=== PATIENT | male | born 1950 | race Caucasian/White ===

== ENCOUNTER → 2017-12-06 08:40 | Outpatient (CLI) | payer MEDICARE, OTHER, SELFPAY ==
--- NOTE | 2017-12-06 08:57 | MRI_ITS ---
STUDY: MRI BRAIN WITHOUT CONTRAST REASON FOR EXAM: Male, 67 years old. Trauma head trauma TECHNIQUE: Standardized multiplanar fat and water weighted pulse sequences were obtained. COMPARISON: None. FINDINGS: The pituitary and pineal regions are normal. The brainstem is normal. The 7th and 8th nerve complexes are normal. Both cerebellopontine angles are clear. The cerebellar vermis and lobes are normal. The ventricles, basal cisterns and cortical sulci are normal with no midline shift and no intra or extra-axial hemorrhage or tumor mass. There is no acute infarction. The calvarium is intact. There are no skull swelling. The vessels at the base of the brain are normal. The orbits and mastoid air cells are normal. There are mild inflammatory changes involving the maxillary sinuses MRI/Brain without Contrast IMPRESSION: No acute findings in the brain. Mild inflammatory changes involving the maxillary sinuses Electronically Signed: Russell Johnson, at 22:48 EST Tel , Service support ,
== END ==
PROVIDERS: Family Provider Family Medicine; PCP Family Medicine; Visit Provider Psychiatry & Neurology Neurology
DX: S02.2XXA Fracture of nasal bones, initial encounter for closed fracture (principal); X58.XXXA Exposure to other specified factors, initial encounter
CPT/HCPCS: 70551

== ENCOUNTER → 2018-03-12 10:45 | Outpatient (CLI) | payer MEDICARE, OTHER, SELFPAY ==
[2018-03-12 12:09] LABS: Hemoglobin A1c 5.7 % (4.2-6.3)
[2018-03-12 12:15] LABS: Rheumatoid Factor < 10.0 IU/mL (<15); Thyroid Stim Hormone (TSH) 1.75 uIU/mL (0.358-3.74)
[2018-03-13 10:29] LABS: Vitamin B12 381 pg/mL (211-911)
[2018-03-13 12:07] LABS: SJOGREN'S Anti-SS-A test < 0.2 AI (0.0-0.9); SJOGREN'S Anti-SS-B test < 0.2 AI (0.0-0.9)
[2018-03-13 13:22] LABS: ANTINUCLEAR ANTIBODIES DIRECT Negative (Negative)
[2018-03-16 16:09] LABS: Albumin 3.6 g/dL (2.9-4.4); Albumin, Ur 68.1 % (.); Alpha-1-Globulin, Ur 3.2 % (.); Alpha-1-Globulins 0.3 g/dL (0.0-0.4); Alpha-2-Globulins 0.8 g/dL (0.4-1.0); Alpha-2-Globulins, Ur 8.4 % (.); Cytoplasmic Ab (C-ANCA) <1:20 titer (Neg:<1:20); Gamma Globulin 0.9 g/dL (0.4-1.8); Gamma Globulin, Ur 7.3 % (.); Immunoglobulin A 146 mg/dL (61-437); Immunoglobulin G 709 mg/dL (700-1600); Immunoglobulin M 107 mg/dL (20-172); M-Spike, Ur % Not Observed % (Not Observed); PROEL- TOTAL PROTEIN 6.5 g/dL (6.0-8.5); Total Protein, Ur 12.1 mg/dL (Not Estab.)
[2018-03-17 09:36] LABS: Perinuclear Ab (P-ANCA) <1:20 titer (Neg:<1:20)
== END ==
PROVIDERS: Family Provider Family Medicine; PCP Family Medicine; Visit Provider Psychiatry & Neurology Neurology
DX: G62.9 Polyneuropathy, unspecified (principal); Z79.899 Other long term (current) drug therapy
CPT/HCPCS: 36415; 82607; 82784; 83036; 84165; 84166; 84443; 86038; 86235; 86256; 86334; 86335; 86431

== ENCOUNTER → 2018-03-17 08:01 | Outpatient (CLI) | payer MEDICARE, OTHER, SELFPAY ==
--- NOTE | 2018-03-17 10:13 | NEURO_ITS ---
NCS and/or EMG Patient Report Ordering Doctor: Denise Dupree DATE OF SERVICE: 03/17/18 This is a bilateral lower extremity nerve conduction study in the left lower extremity EMG performed on this 67-year-old male who over the past 12 months has experienced pain in his knees as well as burning pain in his calves on both sides. He has no back pain. He has had numbness and tingling in both feet. On examination he does have severe hammertoe deformities bilaterally. Bilateral lower extremity sensory and motor nerve conduction studies are performed. The sural sensory responses are intact. The common peroneal motor response on the right distally is not obtainable, more proximally it appears normal. On the left side distally the common peroneal amplitude is low with very slow conduction velocities, this is also more normal proximally. The tibial motor responses bilaterally demonstrate slowed velocities and prolonged latencies. The tibial F waves are prolonged as his left common peroneal F- wave. H reflex latencies from the tibial nerves are reduced bilaterally. Left lower extremity needle electrode mammography is performed. Muscles evaluated included the extensor digitorum brevis, abductor hallucis, medial gastrocnemius, anterior tibialis, vastus lateralis and vastus medialis muscles. Distal muscles demonstrated large motor units however pathologic spontaneous activity and insertional activity was absent. More proximally the muscle activity was normal. 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
== END ==
PROVIDERS: Family Provider Family Medicine; PCP Family Medicine; Visit Provider Psychiatry & Neurology Neurology
DX: G62.9 Polyneuropathy, unspecified (principal); R20.0 Anesthesia of skin; R20.2 Paresthesia of skin
CPT/HCPCS: 95886; 95911

== ENCOUNTER → 2018-03-19 17:46 | Outpatient (CLI) | payer MEDICARE, OTHER, SELFPAY ==
--- NOTE | 2018-03-19 17:51 | MRI_ITS ---
STUDY: MRI LUMBAR SPINE WITHOUT CONTRAST REASON FOR EXAM: Male, 67 years old. Pain radiating into both legs TECHNIQUE: Standardized fat and water weighted pulse sequences were obtained in the sagittal and axial planes. COMPARISON: None FINDINGS: T12-L1: Normal endplates. Normal disc height, hydration and morphology. Normal bilateral facet joints. Normal central canal and bilateral lateral recesses. Normal bilateral intervertebral neural foramina. Normal lumbar lordosis. There is no substantial scoliosis. Normal conus medullaris that terminates at the L1-2 level. L1-2: Normal endplates. Normal disc height, hydration and morphology. Normal bilateral facet joints. Normal central canal and bilateral lateral recesses. Normal bilateral intervertebral neural foramina. L2-3: Disc desiccation. Bulging annulus and bilateral facet hypertrophy without compressive sequelae. L3-4: Disc desiccation and L4 Schmorl's node. Bulging annulus and bilateral facet hypertrophy with severe right lateral recess stenosis and mass effect on the transiting right L4 nerve root. Mild bilateral foraminal stenoses. L4-5: Disc desiccation. Bulging annulus and bilateral facet hypertrophy with mild central canal stenosis and bilateral foraminal stenoses. L5-S1: Disc osteophyte complex and left facet hypertrophy with mild central canal stenosis and bilateral foraminal stenoses. Normal visualized sacral ala. Normal visualized paraspinous soft tissue structures. Bilateral renal cysts. MRI/Spine Lumbar (Routine) IMPRESSION: Multilevel degenerative disease as described. At L3-4, there is severe right lateral recess stenosis, with mass effect on the transiting right L4 nerve root. Electronically Signed: Andrew Kimbrough MD at 4:08 EDT Tel , Service support ,
== END ==
PROVIDERS: Family Provider Family Medicine; PCP Family Medicine; Visit Provider Psychiatry & Neurology Neurology
DX: M48.061 Spinal stenosis, lumbar region without neurogenic claudication (principal)
CPT/HCPCS: 72148

== ENCOUNTER → 2018-05-07 10:47 | Outpatient (CLI) | payer MEDICARE, OTHER, SELFPAY ==
[2018-05-07 12:50] LABS: Absolute Lymphocyte Count 2.29 X10^3/ul (0.83-4.51); Absolute Neutrophil Count 5.4 X10^3/uL (2.0-7.7); Basophil# 0.05 X10^3/uL; Basophil% 0.6 % (0-1); Eosinophil# 0.18 X10^3/uL; Eosinophils% 2.1 % (0-5); Hematocrit 49.8 % (40-54); Hemoglobin 16.7 g/dl (13.0-16.5); Lymphocyte # 2.29 X10^3/ul (4.0); Lymphocyte % 26.1 % (19-41); Mean Corp Hgb Conc 33.5 g/gl (32-36); Mean Corpuscular Hgb 31.7 pg (27.0-32.0); Mean Corpuscular Volume 94.7 fL (80-94); Mean Platelet Vol. 9.4 fl (6.2-12.0); Monocyte% 9.1 % (0-10); Neutrophil # 5.41 X10^3/uL (2.7-7.7); Neutrophil % 61.8 % (47-70); Platelet Count 297 K/mm3 (150-450); RBC Distribution Width CV 14.1 % (11.6-14.6); Red Blood Count 5.26 M/mm3 (4.6-6.2); White Blood Count 8.8 K/mm3 (4.4-11.0)
[2018-05-07 12:52] LABS: POSITIVE COUNT NO; POSITIVE DIFFERENTIAL NO; POSITIVE MORPHOLOGY NO
[2018-05-07 13:01] LABS: Anion Gap 7 (5-15); BUN 19 mg/dL (7-18); Chloride 106 mmol/L (98-107); Cholesterol 182 mg/dL (200); Creatinine, Serum 1.72 mg/dL (0.70-1.30); EST Glomerular Filtration Rate 42 mL/min (>60); Est Glom Filt Rate - Afr Amer 51 mL/min (>60); Glucose 103 mg/dL (74-106); High Density Lipoprotein 41 mg/dL; Potassium 4.2 mmol/L (3.5-5.1); Sodium Level 140 mmol/L (136-145); Triglycerides 154 mg/dL; Very Low Density Lipoprotein 31 mg/dL (5-40)
== END ==
PROVIDERS: Family Provider Family Medicine; PCP Family Medicine; Visit Provider Family Medicine
DX: Z01.818 Encounter for other preprocedural examination (principal); I10 Essential (primary) hypertension
CPT/HCPCS: 36415; 80048; 80061; 85025

== ENCOUNTER → 2018-06-15 14:40 | Outpatient (CLI) | payer MEDICARE, OTHER, SELFPAY ==
[2018-06-15 15:18] LABS: Absolute Lymphocyte Count 2.61 X10^3/ul (0.83-4.51); Absolute Neutrophil Count 4.9 X10^3/uL (2.0-7.7); Basophil# 0.06 X10^3/uL; Basophil% 0.7 % (0-1); Eosinophils% 2.3 % (0-5); Hematocrit 49.7 % (40-54); Hemoglobin 16.4 g/dl (13.0-16.5); Lymphocyte # 2.61 X10^3/ul (4.0); Lymphocyte % 29.6 % (19-41); Mean Corpuscular Hgb 31.2 pg (27.0-32.0); Mean Corpuscular Volume 94.7 fL (80-94); Mean Platelet Vol. 9.3 fl (6.2-12.0); Monocyte# 1.01 X10^3/uL; Monocyte% 11.5 % (0-10); Neutrophil % 55.6 % (47-70); POSITIVE COUNT NO; POSITIVE DIFFERENTIAL NO; POSITIVE MORPHOLOGY NO; Platelet Count 297 K/mm3 (150-450); Red Blood Count 5.25 M/mm3 (4.6-6.2); White Blood Count 8.8 K/mm3 (4.4-11.0)
[2018-06-15 15:49] LABS: AST(SGOT) 16 U/L (15-37); Alanine Aminotransfer ALT/SGPT 32 U/L (16-61); Albumin, Serum 3.6 g/dL (3.2-5.0); Alkaline Phosphatase 99 U/L (45-117); Anion Gap 5 (5-15); BUN 26 mg/dL (7-18); BUN/Creat Ratio 16.6 RATIO (10-20); Calcium,Total 9.2 mg/dL (8.5-10.1); Chloride 107 mmol/L (98-107); Creatinine, Serum 1.57 mg/dL (0.70-1.30); EST Glomerular Filtration Rate 47 mL/min (>60); Est Glom Filt Rate - Afr Amer 57 mL/min (>60); Globulin 3.6 g/dL (2.2-4.2); Glucose 61 mg/dL (74-106); Potassium 4.6 mmol/L (3.5-5.1); Protein, Total 7.2 g/dL (6.4-8.2); Sodium Level 142 mmol/L (136-145); Thyroid Stim Hormone (TSH) 2.54 uIU/mL (0.358-3.74)
== END ==
PROVIDERS: Family Provider Family Medicine; PCP Family Medicine; Visit Provider Family Medicine
DX: R10.9 Unspecified abdominal pain (principal); R53.83 Other fatigue
CPT/HCPCS: 36415; 74019; 80053; 84443; 85025

== ENCOUNTER → 2018-06-23 07:39 | Outpatient (CLI) | payer MEDICARE, OTHER, SELFPAY ==
--- NOTE | 2018-06-24 08:40 | LEAS ---
Arterial Study - Arterial Study Arterial Study: Date of scan 06/23/[address] Olson History: Patient with claudication symptoms Interpretation: Right lower extremity pulsatile flow decreased waveform at the ankle out through the digits duplex shows biphasic flow both vessels at the ankle with an SHASHANK 0.7 of the PT 0.6 for the DP. Left lower extremity again with pulsatile flow noted at the ankle out through the digits appears to be slightly decreased duplex shows biphasic flow of the PT and more of a monophasic flow the DP. SHASHANK 0.65 of the PT 0.5 to the DP. Impression: 1. Right lower extremity moderate arterial occlusive disease with an SHASHANK 0.7. 2. Left lower extremity moderate arterial occlusive disease with an SHASHANK 0.65.
== END ==
PROVIDERS: Family Provider Family Medicine; PCP Family Medicine; Visit Provider Surgery Vascular Surgery
DX: I70.213 Atherosclerosis of native arteries of extremities with intermittent claudication, bilateral legs (principal); I65.23 Occlusion and stenosis of bilateral carotid arteries; I77.1 Stricture of artery
CPT/HCPCS: 93880; 93922; 93925; 93978

== ENCOUNTER → 2018-08-03 16:45 | Outpatient (CLI) | payer MEDICARE, OTHER, SELFPAY ==
--- NOTE | 2018-08-03 16:50 | CT_ITS ---
STUDY: LOW DOSE CT LUNG CANCER SCREENING REASON FOR EXAM: Male, 67 years old. 53 pack-year history. Pain in the left lung. Bladder cancer. RADIATION DOSAGE (If Supplied By Facility): CTDIvol = ( 3.02 ) mGy, DLP = ( 106.46 ) mGycm TECHNIQUE: No contrast was administered. Low dose technique was utilized (average mAS-38 and kVp 120). 1.25 mm axial source images with a slice interval of 1.25-mm were reconstructed in lung windows. 2.5 mm axial source images with a slice interval of 2.5-mm were reconstructed in lung windows. 5.0 mm axial source images with a slice interval of 5.0-mm were reconstructed in soft tissue windows. Nodule measured using lung windows on PACS and/or independent workstation with automated measurement of minimum and maximum diameter. Nodule measurement reported as average diameter rounded to the nearest whole number. Growth is defined as an increase ins size of greater than 1.5 mm. COMPARISON: Chest, August 09, 2015. NODULES: Total lung nodules (excluding granulomas): 0 Emphysema: There are marked emphysematous changes throughout both lungs. There is bilateral apical pleural scarring. Endobronchial lesion: No Aorta: There is atherosclerotic changes of the thoracic aorta without aneurysm. Coronary arteries: There are coronary artery calcifications. Heart: The heart is normal in size. There is no pericardial abnormality. Pulmonary artery: Normal Mediastinal nodes: There are subcentimeter nonspecific mediastinal and right hilar lymph nodes. Other chest and abdominal findings: Minimal degenerative changes of the thoracic spine. CT/Low Dose CT Lung Screening IMPRESSION: Lung-RADS category 1 - Continue annual screening with LDCT in 12 months. IMPORTANT NOTES FOR USE: ACR Lung-RADS Version 1.0 Assessment Categories Release Date: February 28, 2014 Category: Coded 0-4 bases on nodule(s) with highest degree of suspicion. Negative screen is defined as categories 1 and 2; a positive screen is defined as categories 3 and 4. Category 3 and 4A nodules that are unchanged on interval CT should be coded as category 2, and individuals returned to screening in 12 months. Category 4X: Category 3 or 4 nodules with additional imaging findings that increase the suspicion of lung cancer, such as spiculation, GGN that doubles in size in 1 year, enlarged lymph notes, etc. Category Modifiers: S (significant finding unrelated to lung cancer) and C (prior history of treated lung cancer) may be added to the 0-4 Lung-RADS Electronically Signed: Lan Souza DO at 22:29 EDT Tel [phone], Service support ,
== END ==
PROVIDERS: Family Provider Family Medicine; PCP Family Medicine; Referring Provider Family Medicine; Visit Provider Family Medicine
DX: Z12.2 Encounter for screening for malignant neoplasm of respiratory organs (principal); Z87.891 Personal history of nicotine dependence
CPT/HCPCS: G0297

== ENCOUNTER → 2018-10-09 10:39 | Outpatient (CLI) | payer MEDICARE, OTHER, SELFPAY ==
[2018-06-11 14:29] VITALS: BMI 25.7
--- NOTE | 2018-10-09 10:51 | RAD_ITS ---
STUDY: X-RAY CHEST REASON FOR EXAM: Male, 68 years old. Atypical chest pain. TECHNIQUE: PA and lateral views of the chest. COMPARISON: August 19, 2015. FINDINGS: There is hyperinflation of the lungs consistent with chronic obstructive lung disease (COPD). No new mass or infiltrate. There is no demonstrated pleural abnormality. Normal size heart. Normal mediastinum and debra. Normal visualized pulmonary arteries. There is atherosclerotic calcification of the aortic arch with tortuosity. There are diffuse degenerative changes of the visualized thoracic spine. There is degenerative osteoarthritis of the bilateral shoulders. There is no demonstrated abnormality of the visualized soft tissue structures of the upper abdomen. RAD/Chest PA and Lateral IMPRESSION: COPD without acute cardiopulmonary disease or major interval change. Electronically Signed: Lan Souza DO at 18:41 EST Tel [phone], Service support ,
[2018-10-09 12:20] LABS: Absolute Lymphocyte Count 2.43 X10^3/ul (0.83-4.51); Absolute Neutrophil Count 4.7 X10^3/uL (2.0-7.7); Basophil# 0.07 X10^3/uL; Basophil% 0.8 % (0-1); Eosinophil# 0.35 X10^3/uL; Eosinophils% 4.1 % (0-5); Hematocrit 47.4 % (40-54); Hemoglobin 15.5 g/dl (13.0-16.5); Lymphocyte # 2.43 X10^3/ul (4.0); Lymphocyte % 28.1 % (19-41); Mean Corp Hgb Conc 32.7 g/gl (32-36); Mean Corpuscular Hgb 31.3 pg (27.0-32.0); Mean Corpuscular Volume 95.6 fL (80-94); Mean Platelet Vol. 9.3 fl (6.2-12.0); Monocyte# 1.08 X10^3/uL; Monocyte% 12.5 % (0-10); Neutrophil # 4.68 X10^3/uL (2.7-7.7); Neutrophil % 54.2 % (47-70); Platelet Count 334 K/mm3 (150-450); RBC Distribution Width CV 13.7 % (11.6-14.6); Red Blood Count 4.96 M/mm3 (4.6-6.2); White Blood Count 8.6 K/mm3 (4.4-11.0)
[2018-10-09 12:26] LABS: Anion Gap 8 (5-15); BUN 54 mg/dL (7-18); BUN/Creat Ratio 20.8 RATIO (10-20); Calcium,Total 9.2 mg/dL (8.5-10.1); Chloride 108 mmol/L (98-107); Creatinine, Serum 2.59 mg/dL (0.70-1.30); EST Glomerular Filtration Rate 26 mL/min (>60); Est Glom Filt Rate - Afr Amer 32 mL/min (>60); Glucose 97 mg/dL (74-106); POSITIVE COUNT NO; POSITIVE DIFFERENTIAL NO; POSITIVE MORPHOLOGY NO; Potassium 4.8 mmol/L (3.5-5.1); Sodium Level 140 mmol/L (136-145)
== END ==
PROVIDERS: Family Provider Family Medicine; PCP Family Medicine; Referring Provider Family Medicine; Visit Provider Family Medicine
DX: R07.89 Other chest pain (principal)
CPT/HCPCS: 36415; 71046; 80048; 85025

== ENCOUNTER 2018-10-14 14:27 | Inpatient (IN) | payer MEDICARE, OTHER, SELFPAY ==
[2018-10-14] VITALS (23 sets, daily range): BP systolic 54–135; BP diastolic 27–80; PULSE 73–105; RESP 14–20; TEMP 36.4–36.7; O2SAT 92–100; BMI 25.7; BMI 25.8; BMI 27.1; BMI 27.2
--- NOTE | 2018-10-14 15:15 | EKG12_ITS ---
Test Reason : HYPOTENSION Blood Pressure : / mmHG Vent. Rate : 075 BPM Atrial Rate : 075 BPM P-R Int : 162 ms QRS Dur : 090 ms QT Int : 350 ms P-R-T Axes : 053 000 012 degrees QTc Int : 390 ms Sinus rhythm with Fusion complexes Inferior infarct , age undetermined Abnormal ECG Confirmed by BALDO FLEMING, JOHANNE ([id number]), rewrite editor MICHELLE BAZZI ([id number]) on 10/16/2018 9:19:58 AM Referred By: Karan Talbert Confirmed By:JOHANNE BLAND MD
--- NOTE | 2018-10-14 15:25 | RAD_ITS ---
STUDY: X-RAY CHEST REASON FOR EXAM: Male, 68 years old. Chest pain. Hypotension. TECHNIQUE: Single AP portable view of the chest. COMPARISON: Comparison is made with prior study dated October 09, 2018. FINDINGS: EKG electrodes are seen. Hyperinflation. The lungs are clear. Decreased bronchovascular markings in the upper lobes suggestive of emphysematous changes. There is no demonstrated pleural abnormality. Normal size heart. Normal mediastinum and debra. Normal visualized pulmonary arteries. There is atherosclerotic calcification of the aortic arch with tortuosity. Normal visualized thoracic spine. Normal visualized ribs, clavicles, and shoulders. There is no demonstrated abnormality of the visualized soft tissue structures of the upper abdomen. RAD/Chest 1 View (Portable) IMPRESSION: Hyperinflation. The lungs are clear. Electronically Signed: Efrain Dominique MD at 15:43 EST Tel [phone], Service support ,
[2018-10-14 15:59] LABS: Absolute Lymphocyte Count 1.83 X10^3/ul (0.83-4.51); Absolute Neutrophil Count 5.9 X10^3/uL (2.0-7.7); Basophil# 0.06 X10^3/uL; Basophil% 0.7 % (0-1); Eosinophil# 0.32 X10^3/uL; Eosinophils% 3.6 % (0-5); Hematocrit 46.9 % (40-54); Hemoglobin 15.4 g/dl (13.0-16.5); Lymphocyte # 1.83 X10^3/ul (4.0); Lymphocyte % 20.5 % (19-41); Mean Corp Hgb Conc 32.8 g/gl (32-36); Mean Corpuscular Hgb 31.2 pg (27.0-32.0); Mean Corpuscular Volume 95.1 fL (80-94); Neutrophil # 5.89 X10^3/uL (2.7-7.7); Platelet Count 298 K/mm3 (150-450); RBC Distribution Width CV 13.5 % (11.6-14.6); Red Blood Count 4.93 M/mm3 (4.6-6.2); White Blood Count 8.9 K/mm3 (4.4-11.0)
[2018-10-14 16:00] LABS: POSITIVE COUNT NO; POSITIVE DIFFERENTIAL NO; POSITIVE MORPHOLOGY NO
[2018-10-14 16:39] LABS: Lactic Acid 1.3 mmol/L (0.4-2.0)
--- NOTE | 2018-10-14 17:53 | ED.RN ---
PT SITTING UP EATING A SANDWICH. AT FIRST FELT OK.. BP REMAINED STABLE. BP BEGINS TO DROP. PT SLIGHTLY WOOZY. ALLOWED TO FINISH MEAL
[2018-10-14 17:57] LABS: AST(SGOT) 12 U/L (15-37); Alanine Aminotransfer ALT/SGPT 20 U/L (16-61); Albumin, Serum 3.1 g/dL (3.2-5.0); Alkaline Phosphatase 80 U/L (45-117); Anion Gap 6 (5-15); BUN 50 mg/dL (7-18); Calcium,Total 8.3 mg/dL (8.5-10.1); Chloride 113 mmol/L (98-107); Creatinine, Serum 2.78 mg/dL (0.70-1.30); EST Glomerular Filtration Rate 24 mL/min (>60); Est Glom Filt Rate - Afr Amer 29 mL/min (>60); Estimated Creatinine Clearance 26.71 ml/min; Glucose 87 mg/dL (74-106); Potassium 5.8 mmol/L (3.5-5.1); Protein, Total 6.1 g/dL (6.4-8.2); Sodium Level 141 mmol/L (136-145)
[2018-10-14] MEDS: 0.9% Normal Saline 1,000 ML 999 ML IV (18:00)
--- NOTE | 2018-10-14 18:14 | NURSING ---
PAGED DR SANJAY NGUYEN.
--- NOTE | 2018-10-14 18:23 | ED.RN ---
PT SITTING UP. PT SUDDENLY FEELS LIGHTHEADED. BP DROPS TO 80/54. PT TREN[place]. FLUIDS OPEN. DR CARDOZA
[2018-10-14 18:50] LABS: Bacteria 0 SEEN /hpf (None Seen); Mucous, Urine 0 SEEN /hpf (<or=2+); Red Blood Cells-Urine 0 SEEN /hpf (0-5); Squamous Epithelial Cells - UA 0 SEEN /hpf (0-5)
--- NOTE | 2018-10-14 19:12 | ED.RN ---
PATIENT'S BP IS 54/37. ANOTHER BAG OF NS HUNG AND PATIENT PUT IN TRENDE[place] POSITION. DR. BLANKENSHIP MADE AWARE.
--- NOTE | 2018-10-14 19:13 | ED.RN ---
NORMAL SALINE PUT ON A PRESSURE BAG TO GET FLUIDS IN MORE QUICKLY.
[2018-10-14 19:35] LABS: Color, Urine Yellow (Yellow); Glucose, Dipstick Normal (Normal); Ketone-Dipstick Negative (Negative); Leukocyte Esterase-Dipstick Negative /ul (Negative); Nitrite-Dipstick Negative (Negative); Occult Blood-Urine Negative /ul (Negative); Protein-Dipstick Negative (Negative); Urine Bilirubin Dipstick Negative (Negative); Urine Clarity Clear (Clear); Urine Urobilinogen Normal (Normal)
[2018-10-14 19:56] LABS: Hyaline Cast 0-5 SEEN /lpf (0-5)
[2018-10-14 19:57] LABS: White Blood Cells 0-5 SEEN /hpf (0-5)
[2018-10-14] MEDS: Gabapentin 400 MG Capsule PO (20:04)
--- NOTE | 2018-10-14 20:08 | HP.PCM_ITS ---
Problem List (1) Syncope Status: Acute (2) Hypotension Status: Acute History of Present Illness Date of Admission: 10/14/18 Chief Complaint: transient loss of consciousness The patient is a 68 year old M with a significant history of hypertension; bladder cancer status post surgery;PAD status post femoral bypass surgery and stent; who presented because of a syncopal episode while getting ready to take an x-ray of his right shoulder. Patient stated that while he stood up and was getting ready to get an x-ray he lost consciousness and was held up by people. He denies any nausea, palpitations; seizures or feeling different before or after the syncope. He reports lightheadedness. His symptoms on the same day of admission. However he reported that for the last 3 months he has always had lightheadedness. And his blood pressure has been low. He reported one time at the PCPs office his blood pressure was so low to be read. His home hydrochlorothiazide was subsequently discontinued. However he continued to take his Cozaar. Last time he took Cozaar was on the same day of admission. Also patient has had acute kidney injury and was referred to a urologist. Patient reports taking ibuprofen every day because of rhinorrhea. Patient reported that in the past he has tried Flonase without any real relief from his rhinorrhea. He developed rhinorrhea after falling and injuring his nose. Subsequently he had nasal surgery. He reports injury to a nerve that runs through his nose. Patient reports loose stools that started about a week ago. At emergency department was found to have elevated potassium of 5.8. Because her blood pressure was very low at emergency department he received a 30 mls per kilograms of IV fluids. The case was discussed with machine attendant who agreed the patient should be admitted at intensive care unit and be continued on IV fluids. Past Medical History Past Medical History (Chronic Problems): Chronic Problems (Last Reviewed 10/15/18 @ 05:39 by Candelario Robb MD) Near syncope (Chronic) Orthostatic hypotension (Chronic) HTN (hypertension) (Chronic) HLD (hyperlipidemia) (Chronic) Basal cell carcinoma (Chronic) PAD (peripheral artery disease) (Chronic) Kidney calculi (Chronic) Medical History: Medical History (Last Reviewed 10/15/18 @ 05:39 by Candelario Robb MD) Near syncope (Chronic) R55 Orthostatic hypotension (Chronic) I95.1 HTN (hypertension) (Chronic) I10 HLD (hyperlipidemia) (Chronic) E78.5 PAD (peripheral artery disease) (Chronic) I73.9 Allergies morphine Allergy (Verified 06/11/18 14:31) Other Home Medications: Ambulatory Orders Medication Instructions Recorded Atorvastatin Calcium [Lipitor] 10 mg PO QHS 10/14/18 Cilostazol [Pletal] 100 mg PO BIDAC 10/14/18 Clopidogrel Bisulfate [Plavix] 75 mg PO DAILY 10/14/18 Gabapentin [Neurontin] 400 mg PO TIDCM 10/14/18 Ibuprofen 200 mg PO BID 10/14/18 Losartan Potassium [Cozaar] 50 mg PO DAILY 10/14/18 Omeprazole [Prilosec] 20 mg PO BID 10/14/18 Surgical History: - - Hand surgery for trigger finger. Surgery on her wrist at x2. 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 Len was placed in left femur. Carotid endarterectomy. Bladder surgery for cancer. Smoking Status: Former smoker - He reports quitting smoking about a month ago. Tobacco Use: Cigarettes - *Family History Maternal Family History: Family History (Last Updated 10/15/18 @ 05:45 by Candelario Robb MD) Father Lung cancer Brother Throat cancer Brother Stomach cancer Mother Heart problem Review of Systems Constitutional: Reports: Fatigue. Denies: Chills, Fever, Weight Change HEENT: Denies: Head Aches, Sinus Congestion, Sinus Drainage Cardiovascular: Reports: Light Headedness. Denies: Chest Pain, Palpitations Respiratory: Denies: Cough, Shortness of breath at rest, Sputum production Gastrointestinal: Denies: Abdominal Pain, Nausea, Vomiting Genitourinary: Denies: Dysuria Musculoskeletal: Reports: Leg Pain. Denies: Joint Pain - Hips and knee pain, Joint Tenderness Skin: Denies: Rash, Wounds Neurological: Denies: Numbness, Tingling, Focal weakness Psychiatric: Denies: Anxiety, Depression, Homicidal Ideations, Suicidal Ideations Hematologic/ Lymphatic: Denies: Easy Bruising, Easy Bleeding VTE Information - Inpt Only VTE Present on Admission: No VTE Mechan Device Prophylaxis: None VTE Pharm Prophylaxis ordered?: Yes Patient Problems: Active and Suspected Problems (Last Reviewed 10/15/18 @ 05:39 by Candelario Robb MD) Syncope (Acute) Hypotension (Acute) - Physical Exam General: Alert, Oriented x3, Cooperative HEENT: Atraumatic, PERRLA, EOMI, Normocephalic Neck: Supple, No JVD, Negative Carotid Bruits Lungs: Clear to auscultation, Normal air movement Cardiovascular: Regular rate, No murmurs Abdomen: Bowel Sounds Present, Soft, Non Tender Extremities: No edema, Capillary Refill Less than 3 Seconds Skin: No rashes, No breakdown Musculoskeletal: No Tenderness to Palpation of Joints or Extremities Neurological: Cranial nerves II-XII grossly intact Psych/Mental Status: Normal Affect, Appropriate Vital Signs Temp Pulse Resp BP Pulse Ox 97.6 F L 99 17 99/59 L 93 10/14/18 14:28 10/14/18 20:05 10/14/18 20:05 10/14/18 20:05 10/14/18 20:05 Oxygen Flow Rate (L/min) 2 Oxygen Delivery Method Nasal Cannula Weight: 83.915 kg Body Mass Index (BMI) 25.7 Finger Stick Blood Glucose 134 Intake and Output for Last 24 Hours 10/12/18 10/13/18 10/14/18 23:59 23:59 23:59 Output Total 500 / 500 Balance -500 / -500 Laboratory Tests Past 24 Hrs 10/14/18 10/14/18 10/14/18 15:40 15:40 15:40 WBC 8.9 RBC 4.93 Hgb 15.4 Hct 46.9 MCV 95.1 H MCH 31.2 MCHC 32.8 RDW 13.5 RDW Differential 47.0 H Plt Count 298 MPV 9.0 Immature Gran % (Auto) 0.200 Neut % (Auto) 66.0 Lymph % (Auto) 20.5 [place] % (Auto) 9.0 Eos % (Auto) 3.6 Baso % (Auto) 0.7 Absolute Neuts (auto) 5.9 Absolute Lymphs (auto) 1.83 Total Counted Not Reportable Sodium Cancelled Potassium Cancelled Chloride Cancelled Carbon Dioxide Cancelled Anion Gap Cancelled BUN Cancelled Creatinine Cancelled Estim Creat Clear Calc Cancelled Est GFR (MDRD) Af Amer Cancelled Est GFR (MDRD) Non-Af Cancelled BUN/Creatinine Ratio Cancelled Glucose Cancelled Lactic Acid 1.3 Calcium Cancelled Total Bilirubin Cancelled AST Cancelled ALT Cancelled Alkaline Phosphatase Cancelled Troponin I Cancelled Total Protein Cancelled Albumin Cancelled Globulin Cancelled Albumin/Globulin Ratio Cancelled Urine Color Urine Clarity Urine pH Ur Specific [place] Urine Protein Urine Glucose (UA) Urine Ketones Urine Occult Blood Urine Nitrite Urine Bilirubin Urine Urobilinogen Ur Leukocyte Esterase Urine RBC Urine WBC Ur Squamous Epith Cells Urine Bacteria Hyaline Casts Urine Mucus 10/14/18 10/14/18 10/14/18 16:30 17:25 18:35 WBC RBC Hgb Hct MCV MCH MCHC RDW RDW Differential Plt Count MPV Immature Gran % (Auto) Neut % (Auto) Lymph % (Auto) [place] % (Auto) Eos % (Auto) Baso % (Auto) Absolute Neuts (auto) Absolute Lymphs (auto) Total Counted Sodium Cancelled 141 Potassium Cancelled 5.8 H Chloride Cancelled 113 H Carbon Dioxide Cancelled 22.0 Anion Gap Cancelled 6 BUN Cancelled 50 H Creatinine Cancelled 2.78 H Estim Creat Clear Calc Cancelled 26.71 Est GFR (MDRD) Af Amer Cancelled 29 L Est GFR (MDRD) Non-Af Cancelled 24 L BUN/Creatinine Ratio Cancelled 18.0 Glucose Cancelled 87 Lactic Acid Calcium Cancelled 8.3 L Total Bilirubin Cancelled 0.30 AST Cancelled 12 L ALT Cancelled 20 Alkaline Phosphatase Cancelled 80 Troponin I Cancelled < 0.015 Total Protein Cancelled 6.1 L Albumin Cancelled 3.1 L Globulin Cancelled 3.0 Albumin/Globulin Ratio Cancelled 1.0 Urine Color Yellow Urine Clarity Clear Urine pH 6.0 Ur Specific [place] 1.010 Urine Protein Negative Urine Glucose (UA) Normal Urine Ketones Negative Urine Occult Blood Negative Urine Nitrite Negative Urine Bilirubin Negative Urine Urobilinogen Normal Ur Leukocyte Esterase Negative Urine RBC 0 SEEN Urine WBC 0-5 SEEN Ur Squamous Epith Cells 0 SEEN Urine Bacteria 0 SEEN Hyaline Casts 0-5 SEEN Urine Mucus 0 SEEN Assessment/Plan All Active Problems (Last Reviewed 10/15/18 @ 05:39 by Candelario Robb MD) Syncope (Acute) Hypotension (Acute) TIA (transient ischemic attack) (Acute) The patient is a 68 year old M with a significant history of hypertension; bladder cancer status post surgery;PAD status post femoral bypass surgery and stent; who presented because of a syncopal episode while getting ready to take an x-ray for his right shoulder and found to have severe hypotension at emergency department requiring IV fluid bolus. Syncopal episode Likely due to hypotension. Because of severe hypotension requiring multiple liters of fluid his blood pressure still marginal patient was admitted to the ICU. Patient receive normal saline IV fluids at emergency department. We will continue patient on normal saline 100ML per hour for 15 hours. We will hold home Cozaar. Will order echocardiogram. Enteritis Patient reported diarrhea that started about a week ago. He reported that on the day of admission he even had some loose stools. However while at the ICU patient reported that his diarrhea was after he had eaten beans; and it occurred a week ago.. Clinical monitoring at this time. DAWN on CKD stages III On admission his creatinine was 2.78. On 06/15/2018 his creatinine was 1.57. IV hydration as above We will consult salon coordinator. Urinary studies ordered. At emergency department he received IV fluids and was able to void. His postvoid residual was unremarkable. Avoid nephrotoxics Trend BMP Hyperkalemia On admission his potassium was 5.8. Emergency department doctor reported that the blood was partially hemolyzed. Repeat potassium level. His elevated potassium could be due to kidney injury causing poor excretion. IV hydration. Trend BMP. Prophylaxis Subcutaneous heparin. Code Visit Inpatient E&M: 12956 Init Hosp L3
--- NOTE | 2018-10-14 20:38 | ED.DCSUM_ITS ---
- ER Visit Summary Date of Service: 10/14/18 Chief Complaint: Lightheaded, unresponsive episode History of Present Illness: The patient is a [address] Karan Lomax and Dr. Olson. He reports that he had revision of a bilateral [place] pop bypass on September [address] Olson at [facility]. He states that since that time he has had low blood pressure. This is been gradually worsening. He states that he saw Dr. Lomax in the office last week and that they were unable to read my blood pressure because it was low. States that he had blood work that showed poor renal function. He is scheduled to see a urologist and have a stress test as an outpatient. They stopped his blood pressure medications last week. Patient reports that today he was at an orthopedic surgeon's office getting an x-ray and was standing for this. He had an episode where he did not respond during this. He did not have a syncopal episode. He denies any chest pain or palpitations. Reports that he had 2 episodes of chest pain last week. Describes it as a squeezing pain that was diffuse over his whole chest. Last approximately 20 minutes. It occurred with light activity and improved with rest. He reports he was short of breath at that time. He denies any nausea, vomiting, diaphoresis with this. Patient reports he has pain in the calves bilaterally if he stands for 15-20 minutes. This is improved since the surgery. On review of systems patient reports that he has had loose stools for the past week. No blood in his stools. He had nausea without vomiting. Complains of generalized weakness. He denies any other complaints. Review of systems: General: No fever, chills, cold sweats. Cardiovascular: No chest pain, palpitations. Respiratory: No cough, shortness of breath, dyspnea on exertion. Gastrointestinal: No abdominal pain, vomiting, melena, or hematochezia. Genitourinary: No dysuria, frequency, hematuria. Skin: No rash. Neuro: No headache, numbness. Physical Examination: Vitals: Stable. Afebrile. General: Well-nourished and well-developed. Head: Normocephalic atraumatic. Neck: Supple, no lymphadenopathy. No JVD. Nontender. Cardiovascular: Regular rate and rhythm. No murmurs. Respiratory: No respiratory distress. Clear to auscultation bilaterally. Abdominal: Soft, mild periumbilical tenderness to palpation, nondistended, normal bowel sounds. No guarding, rebound, or peritoneal signs. Back: Nontender. Extremities: Nontender, no edema. Skin: Normal color, no rash. Neurologic: Alert and oriented ?3. Cranial nerves II through XII are intact. Normal strength and sensation. Psych: Normal affect. Test Results: EKG is sinus at [address] changes and a PVC. Unchanged 2014. Troponin is negative. Lactic acid is 1.3. UA is normal. LFTs marked for an AST of 12, total protein 6.1, and albumin 3.1. Chem-7 marked potassium of 5.8 (slight hemolysis), chloride 113, calcium 8.3, BUN of 50, creatinine 2.78. His creatinine is range between 1.49-1.72 in 2018. In 2017 it was 1.582.17. Chest x-ray shows chronic emphysematous changes and no acute disease. Emergency Department Course and Treatment: Patient was hypotensive in the emergency department. He was given a 30 cc/kg bolus of normal saline. His blood pressure has increased into the high 90s over 60s. He is resting comfortably. Treatment Plan: Patient was discussed with Dr. Robb and Dr. Childs. He will be admitted to the ICU for further evaluation and treatment. Disposition: Admitted in serious condition. Impression: 1. Hypertension. 2. Renal insufficiency. This note was generated with [employer] dictation software. It may contain incorrect words, spelling, and punctuation that were not noted in review of the chart prior to signing ED Disposition - Plan for ED Patient: Chief Complaint: Hypotension
--- NOTE | 2018-10-14 21:30 | ED.RN ---
REPORT GIVEN TO ALEXA IN ICU.
--- NOTE | 2018-10-14 21:58 | ECHOD_ITS ---
Reason For Study: Syncope Procedure This was a 2D Doppler, Color Flow transthoracic echocardiogram. Exam performed portable in patient room. Left Ventricle Normal size and thickness. The estimated ejection fraction is 65 %. Stage 1 diastolic dysfunction. No regional wall motion abnormalities noted. Right Ventricle Normal size and thickness. Normal systolic function. Atria Normal left atrium. Normal right atrium. Normal atrial septum. Mitral Valve The mitral valve is structurally normal. No prolapse or stenosis seen. Tricuspid Valve Normal tricuspid valve. Unable to estimate RV systolic pressure due to inadequate jet, pulmonary artery pressure probably normal. Aortic Valve Trisinus/trileaflet aortic valve. Pulmonic Valve Normal pulmonic valve. Trivial pulmonic valve insufficiency. Great Vessels Normal aortic root. Normal arch. Normal inferior vena cava. Inferior vena cava collapse with sniff. Pericardium/Pleural No pericardial effusion. MMode/2D Measurements & Calculations LVIDd: 3.6 cm IVSd: 1.1 cm Ao root diam: 3.2 cm LVIDs: 2.2 cm LVPWd: 0.92 cm RVDd: 3.3 cm FS: 39.1 % LAV(MOD-bp): 38.4 ml EDV(MOD-sp4): 73.2 ml EDV(MOD-sp2): 77.4 ml LAV(MOD-bp) Indexed: 18.5 ml/m2 ESV(MOD-sp4): 34.6 ml EF(MOD-sp2): 70.7 % LAV(MOD-sp2): 35.9 ml EF(MOD-sp4): 52.8 % LAV(MOD-sp4): 40.2 ml SV(MOD-sp4): 38.6 ml SV(MOD-sp2): 54.7 ml LA A4 area: 16.3 cm2 LA dimension(2D): 3.0 cm RA A4 area: 13.6 cm2 Doppler Measurements & Calculations MV E max wang: 65.2 cm/sec Lat Peak E' Wang: 10.5 cm/sec Med Peak E' Wang: 7.6 cm/sec MV A max wang: 100.8 cm/sec E/E' lat: 6.2 E/E' med: 8.6 MV E/A: 0.65 Ao V2 max: 184.7 cm/sec LV V1 max: 130.3 cm/sec PA V2 max: 132.7 cm/sec Ao max P.6 mmHg LV V1 max P.8 mmHg Interpretation Summary The estimated ejection fraction is 65 %. Stage 1 diastolic dysfunction. Unable to estimate RV systolic pressure due to inadequate jet, pulmonary artery pressure probably normal. Trivial pulmonic valve insufficiency. Compred to echo report date08/10/2015, no appreciable changes noted. Ordering Physician: Candelario Robb Referring Physician: Karan Talbert Performed By: Shakira Talley RDCS
[2018-10-14] MEDS: 0.9% Normal Saline 1,000 ML 100 ML IV (22:10)
[2018-10-14] MEDS: Atorvastatin Calcium 10 MG Tablet PO (23:07)
[2018-10-14] MEDS: Pantoprazole Sodium 20 MG Tablet PO (23:08)
[2018-10-14] MEDS: Clopidogrel Bisulfate 75 MG Tablet PO (23:08)
[2018-10-14 23:10] LABS: Anion Gap 5 (5-15); BUN 48 mg/dL (7-18); BUN/Creat Ratio 18.8 RATIO (10-20); Calcium,Total 8.2 mg/dL (8.5-10.1); Chloride 115 mmol/L (98-107); Creatinine, Serum 2.56 mg/dL (0.70-1.30); EST Glomerular Filtration Rate 27 mL/min (>60); Est Glom Filt Rate - Afr Amer 32 mL/min (>60); Estimated Creatinine Clearance 29.01 ml/min; Glucose 97 mg/dL (74-106); Potassium 4.7 mmol/L (3.5-5.1); Sodium Level 143 mmol/L (136-145)
[2018-10-14] MEDS: Heparin Injection (Vial) 5,000 UNIT/ML VIAL 5000 UNIT SC (23:17)
[2018-10-14 23:45] LABS: Urine Sodium 41 mmol/L (Not Establ.)
[2018-10-15] VITALS (18 sets, daily range): BP systolic 84–155; BP diastolic 46–85; PULSE 80–104; RESP 13–22; TEMP 36.6–36.8; O2SAT 94–98
[2018-10-15 04:25] LABS: Hematocrit 39.4 % (40-54); Hemoglobin 13.2 g/dl (13.0-16.5); Mean Corp Hgb Conc 33.5 g/gl (32-36); Mean Corpuscular Hgb 31.8 pg (27.0-32.0); Mean Corpuscular Volume 94.9 fL (80-94); Mean Platelet Vol. 9.2 fl (6.2-12.0); Platelet Count 269 K/mm3 (150-450); RBC Distribution Width CV 13.2 % (11.6-14.6); RBC Distribution Width SD 44.4 fl (35.1-43.9); Red Blood Count 4.15 M/mm3 (4.6-6.2); White Blood Count 6.7 K/mm3 (4.4-11.0)
[2018-10-15 04:26] LABS: Scan Indicated on CBC? Y/N NO
[2018-10-15 04:40] LABS: Anion Gap 7 (5-15); BUN 44 mg/dL (7-18); BUN/Creat Ratio 20.8 RATIO (10-20); Calcium,Total 8.1 mg/dL (8.5-10.1); Chloride 118 mmol/L (98-107); Creatinine, Serum 2.12 mg/dL (0.70-1.30); EST Glomerular Filtration Rate 33 mL/min (>60); Est Glom Filt Rate - Afr Amer 40 mL/min (>60); Estimated Creatinine Clearance 35.03 ml/min; Glucose 80 mg/dL (74-106); Potassium 5.6 mmol/L (3.5-5.1); Sodium Level 145 mmol/L (136-145)
[2018-10-15] MEDS: Lactated Ringers 1,000 ML 100 ML IV ×2 (06:55→16:48)
[2018-10-15] MEDS: Heparin Injection (Vial) 5,000 UNIT/ML VIAL 5000 UNIT SC ×3 (06:55→22:07)
--- NOTE | 2018-10-15 07:47 | CON.PCM_ITS ---
Problem List (1) Hypotension Status: Acute (2) Near syncope Status: Chronic (3) Orthostatic hypotension Status: Chronic (4) HTN (hypertension) Status: Chronic (5) HLD (hyperlipidemia) Status: Chronic Qualifiers: Hyperlipidemia type: pure hypercholesterolemia Qualified Code(s): E78.00 - Pure hypercholesterolemia, unspecified; E78.0 - Pure hypercholesterolemia (6) Basal cell carcinoma Status: Chronic (7) PAD (peripheral artery disease) Status: Chronic (8) Kidney calculi Status: Chronic Reason for Consult Date of Consultation: 10/15/18 Reason for Consultation: Hypotension History of Present Illness: The patient is a 68 year old M with past medical history listed below, who presented to [facility] on 10/14/2018 secondary to an episode of unresponsiveness. Patient is a relatively poor historian. Patient reports he was of his usual health until he had a revision of a recent femoropopliteal bypass on September 08 at [facility] Patient reports that ever since that time he has had worsening blood pressure. Patient had been decreased on his beta-cesar because of decreased blood pressure. Patient had also had recent blood work showing worsening renal function. Patient reports he had a period of squeezing chest pain that lasted approximately 20 minutes. This occurred with light activity and improved with rest. Patient denied any constitutional symptoms such as fever, chills, nausea or vomiting. Patient is not had any dysuria and feels his lower extremity cramping has improved since the procedure. In the ER, patient had an EKG that was unremarkable compared to previous. Chem- 7 showed an elevated creatinine at 2.78 (baseline 1.5). Patient was also noted to be hypotensive while in the emergency department. Patient was given a 30 cc/kg bolus and showed some improvement. Patient was then admitted to the intensive care unit for further monitoring. Since being in the intensive care unit, patient's blood pressure has continued to improve. Patient did not receive any pressor therapy. Patient feels subjectively much improved this morning, but blood pressures are noted to be 155/76. Patient has remained on Cozaar and reportedly has been taking ibuprofen secondary to sinus congestion. Patient does report some loose stools, but not diarrhea. Review of systems otherwise negative x10 systems. Past Medical History Past Medical History (Chronic Problems): Chronic Problems (Last Reviewed 10/15/18 @ 05:39 by Candelario Robb MD) Near syncope (Chronic) Orthostatic hypotension (Chronic) HTN (hypertension) (Chronic) HLD (hyperlipidemia) (Chronic) Basal cell carcinoma (Chronic) PAD (peripheral artery disease) (Chronic) Kidney calculi (Chronic) Medical History: Medical History (Last Reviewed 10/15/18 @ 05:39 by Candelario Robb MD) Near syncope (Chronic) R55 Orthostatic hypotension (Chronic) I95.1 HTN (hypertension) (Chronic) I10 HLD (hyperlipidemia) (Chronic) E78.5 PAD (peripheral artery disease) (Chronic) I73.9 Allergies morphine Allergy (Verified 06/11/18 14:31) Other Home Medications: Ambulatory Orders Medication Instructions Recorded Atorvastatin Calcium [Lipitor] 10 mg PO QHS 10/14/18 Cilostazol [Pletal] 100 mg PO BIDAC 10/14/18 Clopidogrel Bisulfate [Plavix] 75 mg PO DAILY 10/14/18 Gabapentin [Neurontin] 400 mg PO TIDCM 10/14/18 Ibuprofen 200 mg PO BID 10/14/18 Losartan Potassium [Cozaar] 50 mg PO DAILY 10/14/18 Omeprazole [Prilosec] 20 mg PO BID 10/14/18 Surgical History: - - Hand surgery for trigger finger. Surgery on her wrist at x2. 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 Len was placed in left femur. Carotid endarterectomy. Bladder surgery for cancer. Smoking Status: Former smoker - He reports quitting smoking about a month ago. Tobacco Use: Cigarettes - *Family History Maternal Family History: Family History (Last Updated 10/15/18 @ 05:45 by Candelario Robb MD) Father Lung cancer Brother Throat cancer Brother Stomach cancer Mother Heart problem Review of Systems Comment: See HPI Patient Problems: Active and Suspected Problems (Last Reviewed 10/15/18 @ 05:39 by Candelario Robb MD) Syncope (Acute) Hypotension (Acute) Objective: Chest x-ray was personally reviewed and shows no acute infiltrate. - Physical Exam General: Alert, Oriented x3, Cooperative, No apparent distress, Well developed, Well nourished, - - No conversational dyspnea. Appears stated age. HEENT: Atraumatic, PERRLA, EOMI, Normocephalic, - - No scleral icterus or injection noted. Oral: Moist Mucosa, No Gingival or Mucosal Lesions/ Ulcerations Neck: Supple, No JVD, No Nodes, Trachea Midline Lungs: Clear to auscultation, Normal air movement, No rhonchi, No wheeze, No rales, - - Symmetric expansion. No dullness to percussion. Cardiovascular: Regular rate, Regular Rhythm, Normal S1, Normal S2, No murmurs, No rub noted, No Gallop Abdomen: Bowel Sounds Present, Soft, Non Tender, Non-Distended Extremities: No clubbing, No cyanosis, No edema, Capillary Refill Less than 3 Seconds Skin: No rashes, No breakdown Musculoskeletal: No Tenderness to Palpation of Joints or Extremities Lymphatic: No Cervical, Supraclavicular, or Inguinal Adenopathy Neurological: Cranial nerves II-XII grossly intact, Neuro grossly intact, Sensory exam intact to light touch and pain Psych/Mental Status: Alert and oriented to time, place, person, mood and affect Vital Signs Temp Pulse Resp BP Pulse Ox 36.7 C 80 15 139/80 H 96 10/15/18 04:00 10/15/18 07:00 10/15/18 07:00 10/15/18 07:00 10/15/18 07:00 Oxygen Flow Rate (L/min) 2 Oxygen Delivery Method Room Air Weight: 88.2 kg Body Mass Index (BMI) 27.1 Finger Stick Blood Glucose 134 Intake and Output for Last 24 Hours 10/13/18 10/14/18 10/15/18 23:59 23:59 23:59 Intake Total 2398 / 2398 722 / 722 Output Total 950 / 950 850 / 850 Balance 1448 / 1448 -128 / -128 Laboratory Tests Past 24 Hrs 10/14/18 10/14/18 10/14/18 15:40 15:40 15:40 WBC 8.9 RBC 4.93 Hgb 15.4 Hct 46.9 MCV 95.1 H MCH 31.2 MCHC 32.8 RDW 13.5 RDW Differential 47.0 H Plt Count 298 MPV 9.0 Immature Gran % (Auto) 0.200 Neut % (Auto) 66.0 Lymph % (Auto) 20.5 [place] % (Auto) 9.0 Eos % (Auto) 3.6 Baso % (Auto) 0.7 Absolute Neuts (auto) 5.9 Absolute Lymphs (auto) 1.83 Total Counted Not Reportable Sodium Cancelled Potassium Cancelled Chloride Cancelled Carbon Dioxide Cancelled Anion Gap Cancelled BUN Cancelled Creatinine Cancelled Estim Creat Clear Calc Cancelled Est GFR (MDRD) Af Amer Cancelled Est GFR (MDRD) Non-Af Cancelled BUN/Creatinine Ratio Cancelled Glucose Cancelled Lactic Acid 1.3 Calcium Cancelled Total Bilirubin Cancelled AST Cancelled ALT Cancelled Alkaline Phosphatase Cancelled Troponin I Cancelled Total Protein Cancelled Albumin Cancelled Globulin Cancelled Albumin/Globulin Ratio Cancelled Urine Color Urine Clarity Urine pH Ur Specific Wister Urine Protein Urine Glucose (UA) Urine Ketones Urine Occult Blood Urine Nitrite Urine Bilirubin Urine Urobilinogen Ur Leukocyte Esterase Urine RBC Urine WBC Ur Squamous Epith Cells Urine Bacteria Hyaline Casts Urine Mucus Ur Random Sodium Urine Creatinine 10/14/18 10/14/18 10/14/18 16:30 17:25 18:35 WBC RBC Hgb Hct MCV MCH MCHC RDW RDW Differential Plt Count MPV Immature Gran % (Auto) Neut % (Auto) Lymph % (Auto) [place] % (Auto) Eos % (Auto) Baso % (Auto) Absolute Neuts (auto) Absolute Lymphs (auto) Total Counted Sodium Cancelled 141 Potassium Cancelled 5.8 H Chloride Cancelled 113 H Carbon Dioxide Cancelled 22.0 Anion Gap Cancelled 6 BUN Cancelled 50 H Creatinine Cancelled 2.78 H Estim Creat Clear Calc Cancelled 26.71 Est GFR (MDRD) Af Amer Cancelled 29 L Est GFR (MDRD) Non-Af Cancelled 24 L BUN/Creatinine Ratio Cancelled 18.0 Glucose Cancelled 87 Lactic Acid Calcium Cancelled 8.3 L Total Bilirubin Cancelled 0.30 AST Cancelled 12 L ALT Cancelled 20 Alkaline Phosphatase Cancelled 80 Troponin I Cancelled < 0.015 Total Protein Cancelled 6.1 L Albumin Cancelled 3.1 L Globulin Cancelled 3.0 Albumin/Globulin Ratio Cancelled 1.0 Urine Color Yellow Urine Clarity Clear Urine pH 6.0 Ur Specific Wister 1.010 Urine Protein Negative Urine Glucose (UA) Normal Urine Ketones Negative Urine Occult Blood Negative Urine Nitrite Negative Urine Bilirubin Negative Urine Urobilinogen Normal Ur Leukocyte Esterase Negative Urine RBC 0 SEEN Urine WBC 0-5 SEEN Ur Squamous Epith Cells 0 SEEN Urine Bacteria 0 SEEN Hyaline Casts 0-5 SEEN Urine Mucus 0 SEEN Ur Random Sodium Urine Creatinine 10/14/18 10/14/18 10/14/18 18:35 18:35 22:15 WBC RBC Hgb Hct MCV MCH MCHC RDW RDW Differential Plt Count MPV Immature Gran % (Auto) Neut % (Auto) Lymph % (Auto) [place] % (Auto) Eos % (Auto) Baso % (Auto) Absolute Neuts (auto) Absolute Lymphs (auto) Total Counted Sodium 143 Potassium 4.7 Chloride 115 H Carbon Dioxide 23.0 Anion Gap 5 BUN 48 H Creatinine 2.56 H Estim Creat Clear Calc 29.01 Est GFR (MDRD) Af Amer 32 L Est GFR (MDRD) Non-Af 27 L BUN/Creatinine Ratio 18.8 Glucose 97 Lactic Acid Calcium 8.2 L Total Bilirubin AST ALT Alkaline Phosphatase Troponin I Total Protein Albumin Globulin Albumin/Globulin Ratio Urine Color Urine Clarity Urine pH Ur Specific Wister Urine Protein Urine Glucose (UA) Urine Ketones Urine Occult Blood Urine Nitrite Urine Bilirubin Urine Urobilinogen Ur Leukocyte Esterase Urine RBC Urine WBC Ur Squamous Epith Cells Urine Bacteria Hyaline Casts Urine Mucus Ur Random Sodium 41 Urine Creatinine 77.40 10/15/18 10/15/18 04:15 04:15 WBC 6.7 RBC 4.15 L Hgb 13.2 Hct 39.4 L MCV 94.9 H MCH 31.8 MCHC 33.5 RDW 13.2 RDW Differential 44.4 H Plt Count 269 MPV 9.2 Immature Gran % (Auto) Neut % (Auto) Lymph % (Auto) [place] % (Auto) Eos % (Auto) Baso % (Auto) Absolute Neuts (auto) Absolute Lymphs (auto) Total Counted Sodium 145 Potassium 5.6 H Chloride 118 H Carbon Dioxide 20.0 L Anion Gap 7 BUN 44 H Creatinine 2.12 H Estim Creat Clear Calc 35.03 Est GFR (MDRD) Af Amer 40 L Est GFR (MDRD) Non-Af 33 L BUN/Creatinine Ratio 20.8 H Glucose 80 Lactic Acid Calcium 8.1 L Total Bilirubin AST ALT Alkaline Phosphatase Troponin I Total Protein Albumin Globulin Albumin/Globulin Ratio Urine Color Urine Clarity Urine pH Ur Specific Wister Urine Protein Urine Glucose (UA) Urine Ketones Urine Occult Blood Urine Nitrite Urine Bilirubin Urine Urobilinogen Ur Leukocyte Esterase Urine RBC Urine WBC Ur Squamous Epith Cells Urine Bacteria Hyaline Casts Urine Mucus Ur Random Sodium Urine Creatinine Clinical Impression(s) from Imaging Studies Chest X-Ray 10/14/18 15:25 IMPRESSION: Hyperinflation. The lungs are clear. Electronically Signed: Efrain Dominique MD at 15:43 EST Tel [phone], Service support , Assessment/Plan Active and Suspected Problems (Last Reviewed 10/15/18 @ 05:39 by Candelario Robb MD) Syncope (Acute) Hypotension (Acute) RECOMMENDATIONS: 1. Continue gentle rehydration 2. Would not treat hyperkalemia on labs 3. Continue to hold Cozaar 4. Okay to leave the intensive care unit from my perspective IMPRESSIONS: 1. Hypotension Clinical suspicion for hypovolemic hypotension, possibly from dehydration. Patient appears to be responding to rehydration alone. Renal function is improved compared to previous. Patient is also off of Cozaar therapy. If blood pressure continues to rise, medications may need to be added. Would avoid Cozaar given patient's underlying renal function. Patient currently hemodynamically stable on room air. Okay to leave the intensive care unit from my perspective. 2. Acute on chronic kidney disease stage III Patient was significant elevation in creatinine. This may be secondary to volume ablation and ARB therapy. Hyperkalemia likely secondary to hemolysis on labs. Would not actively treat potassium level. Telemetry does not look to have changes. Avoid nephrotoxic medications. Continue to monitor renal panel on a daily basis. 3. Hypertension/hyperlipidemia/history of basal cell/peripheral artery disease Complicates care, management, recovery and prognosis. Home hypertensive medications have been held secondary to acute condition. Okay to continue with PAD medications from my perspective. Code Visit Inpatient E&M: 32803 Init Hosp L2
--- NOTE | 2018-10-15 08:31 | CON.PCM_ITS ---
Consultation - Renal 10/15/18 PCP/ Referring MD: Requesting physician: [] Primary care physician: Karan Talbert Reason for Consultation:: DAWN on ckd stage 3 - History of Present Illness History of Present Illness: The patient is a 68 year old M with a significant history of hypertension, bladder cancer status post surgery 20 years ago at [place], PAD status post femoral bypass surgery and stent 15 yrs ago at [facility] then recently on 09/[address] Olson at [facility]. He continues to complain of cramps in his legs. He presents with syncopal episode when he went in for right shoulder xray for complaints of shoulder pain after seen by ortho. He denied nausea, vomiting, lightheadedness. He presented with a low BP that was managed with iv flud resuscitation. He is on Cozaar at home discontinued on admit. His creatinine was 2.7 with potassium of 5.8 on 10/14/18. Creatinine improved to 2.2 with hydration and discontinuation of his Cozaar. He takes ibuprofen at home for nasal drainage. He has a history of tobacco use, quit 2 months ago, PAD. He has CKD stage 3 with baseline creatinine of 1.5 in June 2018. He is not aware of kidney disease. He has not followed up with a urologist for years. He denies hematuria, dysuria. Denied fever, chills, weight loss. H - Allergies Allergies: Allergies morphine Allergy (Verified 06/11/18 14:31) Other - Current Medications Current Medications: Current Medications Atorvastatin Calcium (Lipitor) 10 mg PO QHS [facility] Last Admin: 10/14/18 23:07 Dose: 10 mg Cilostazol (Pletal) 100 mg PO BIDAC [facility] Clopidogrel Bisulfate (Plavix) 75 mg PO DAILY@2200 [facility] Last Admin: 10/14/18 23:08 Dose: 75 mg Gabapentin (Neurontin) 400 mg PO X1 ONE Stop: 10/15/18 19:51 Last Admin: 10/14/18 20:04 Dose: 400 mg Gabapentin (Neurontin) 100 mg PO TIDCM [facility] Heparin Sodium (Porcine) (Heparin Na) 5,000 unit SC Q8 [facility] Last Admin: 10/15/18 06:55 Dose: 5,000 unit Sodium Chloride () 1,000 mls @ 100 mls/hr IV .Q10H [facility] Stop: 10/15/18 12:57 Last Admin: 10/14/18 22:10 Dose: 100 mls/hr Sodium Chloride () 250 mls @ 15 mls/hr IV .[id number] PRN PRN Reason: SALINE FLUSH Lactated Ringer's () 1,000 mls @ 100 mls/hr IV .Q10H [facility] Last Admin: 10/15/18 06:55 Dose: 100 mls/hr Magnesium Hydroxide (Milk Of Magnesia) 30 ml PO DAILY PRN PRN PRN Reason: Constipation Ondansetron HCl (Zofran) 4 mg IV Q8H PRN PRN PRN Reason: NAUSEA Pantoprazole Sodium (Protonix) 20 mg PO BID [facility] Last Admin: 10/14/18 23:08 Dose: 20 mg Sodium Chloride () 5 - 15 ml IV UD PRN PRN Reason: SALINE FLUSH Sodium Polystyrene Sulfonate (Kayexalate) 15 gm PO X1 ONE Stop: 10/15/18 08:29 - Past Medical History Past Medical History (Chronic Problems): Chronic Problems (Last Reviewed 10/15/18 @ 05:39 by Candelario Robb MD) Near syncope (Chronic) Orthostatic hypotension (Chronic) HTN (hypertension) (Chronic) HLD (hyperlipidemia) (Chronic) Basal cell carcinoma (Chronic) PAD (peripheral artery disease) (Chronic) Kidney calculi (Chronic) TIA (transient ischemic attack) (Chronic) - Past Surgical History Surgical History: - - Hand surgery for trigger finger. Surgery on her wrist at [facility]. 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 Len was placed in left femur. Carotid endarterectomy. Bladder surgery for cancer. - Social History Marital Status: Smoking Status: Former smoker - He reports quitting smoking about a month ago. - Family History Maternal Family History: Family History (Last Updated 10/15/18 @ 05:45 by Candelario Robb MD) Father Lung cancer Brother Throat cancer Brother Stomach cancer Mother Heart problem Review of Systems Constitutional: Denies: Anorexia, Chills, Fever, Weakness, Fatigue Eyes: Denies: Blurred vision, Vision Change HEENT: Reports: Post Nasal Drip, Sinus Congestion. Denies: Head Aches Cardiovascular: Reports: Syncope. Denies: Chest Pain, Edema, Orthopnea, Palpitations Respiratory: Denies: Cough, Shortness of Breath Gastrointestinal: Denies: Abdominal Pain, Constipation, Diarrhea, Nausea, Vomiting Genitourinary: Reports: - - bladder cancer. Denies: Dysuria, Frequency, Hematuria Skin: Denies: Pruritis, Rash Neurological: Reports: - - leg cramps. Denies: Balance problems, Double vision, Confusion, Seizures Psychiatric: Denies: Anxiety, Depression Hematologic/ Lymphatic: Denies: Hx of blood clot Patient Problems: Active and Suspected Problems (Last Reviewed 10/15/18 @ 05:39 by Candelario Robb MD) Syncope (Acute) Hypotension (Acute) - Physical Exam General: Alert, Oriented x3, Cooperative, No apparent distress HEENT: PERRLA, EOMI Oral: Dry Mucosa Neck: Supple Lungs: Diminished Abdomen: Bowel Sounds Present, Soft, Non Tender, Non-Distended Extremities: No edema, Diminished Peripheral Pulses Skin: No rashes Musculoskeletal: No Muscle Wasting Lymphatic: No Cervical, Supraclavicular, or Inguinal Adenopathy Neurological: Cranial nerves II-XII grossly intact Psych/Mental Status: Normal Affect, Appropriate, Alert and oriented to time, place, person, mood and affect Vital Signs Temp Pulse Resp BP Pulse Ox 98.1 F 85 22 H 139/80 H 85 10/15/18 08:00 10/15/18 08:00 10/15/18 08:00 10/15/18 08:00 10/15/18 08:00 Oxygen Flow Rate (L/min) 2 Oxygen Delivery Method Room Air Weight: 88.2 kg Body Mass Index (BMI) 27.1 Finger Stick Blood Glucose 134 Intake and Output for Last 24 Hours 10/13/18 10/14/18 10/15/18 23:59 23:59 23:59 Intake Total 2398 / 2398 722 / 722 Output Total 950 / 950 850 / 850 Balance 1448 / 1448 -128 / -128 Laboratory Tests Past 24 Hrs 10/14/18 10/14/18 10/14/18 15:40 15:40 15:40 WBC 8.9 RBC 4.93 Hgb 15.4 Hct 46.9 MCV 95.1 H MCH 31.2 MCHC 32.8 RDW 13.5 RDW Differential 47.0 H Plt Count 298 MPV 9.0 Immature Gran % (Auto) 0.200 Neut % (Auto) 66.0 Lymph % (Auto) 20.5 [place] % (Auto) 9.0 Eos % (Auto) 3.6 Baso % (Auto) 0.7 Absolute Neuts (auto) 5.9 Absolute Lymphs (auto) 1.83 Total Counted Not Reportable Sodium Cancelled Potassium Cancelled Chloride Cancelled Carbon Dioxide Cancelled Anion Gap Cancelled BUN Cancelled Creatinine Cancelled Estim Creat Clear Calc Cancelled Est GFR (MDRD) Af Amer Cancelled Est GFR (MDRD) Non-Af Cancelled BUN/Creatinine Ratio Cancelled Glucose Cancelled Lactic Acid 1.3 Calcium Cancelled Total Bilirubin Cancelled AST Cancelled ALT Cancelled Alkaline Phosphatase Cancelled Troponin I Cancelled Total Protein Cancelled Albumin Cancelled Globulin Cancelled Albumin/Globulin Ratio Cancelled Urine Color Urine Clarity Urine pH Ur Specific [place] Urine Protein Urine Glucose (UA) Urine Ketones Urine Occult Blood Urine Nitrite Urine Bilirubin Urine Urobilinogen Ur Leukocyte Esterase Urine RBC Urine WBC Ur Squamous Epith Cells Urine Bacteria Hyaline Casts Urine Mucus Ur Random Sodium Urine Creatinine 10/14/18 10/14/18 10/14/18 16:30 17:25 18:35 WBC RBC Hgb Hct MCV MCH MCHC RDW RDW Differential Plt Count MPV Immature Gran % (Auto) Neut % (Auto) Lymph % (Auto) [place] % (Auto) Eos % (Auto) Baso % (Auto) Absolute Neuts (auto) Absolute Lymphs (auto) Total Counted Sodium Cancelled 141 Potassium Cancelled 5.8 H Chloride Cancelled 113 H Carbon Dioxide Cancelled 22.0 Anion Gap Cancelled 6 BUN Cancelled 50 H Creatinine Cancelled 2.78 H Estim Creat Clear Calc Cancelled 26.71 Est GFR (MDRD) Af Amer Cancelled 29 L Est GFR (MDRD) Non-Af Cancelled 24 L BUN/Creatinine Ratio Cancelled 18.0 Glucose Cancelled 87 Lactic Acid Calcium Cancelled 8.3 L Total Bilirubin Cancelled 0.30 AST Cancelled 12 L ALT Cancelled 20 Alkaline Phosphatase Cancelled 80 Troponin I Cancelled < 0.015 Total Protein Cancelled 6.1 L Albumin Cancelled 3.1 L Globulin Cancelled 3.0 Albumin/Globulin Ratio Cancelled 1.0 Urine Color Yellow Urine Clarity Clear Urine pH 6.0 Ur Specific [place] 1.010 Urine Protein Negative Urine Glucose (UA) Normal Urine Ketones Negative Urine Occult Blood Negative Urine Nitrite Negative Urine Bilirubin Negative Urine Urobilinogen Normal Ur Leukocyte Esterase Negative Urine RBC 0 SEEN Urine WBC 0-5 SEEN Ur Squamous Epith Cells 0 SEEN Urine Bacteria 0 SEEN Hyaline Casts 0-5 SEEN Urine Mucus 0 SEEN Ur Random Sodium Urine Creatinine 10/14/18 10/14/18 10/14/18 18:35 18:35 22:15 WBC RBC Hgb Hct MCV MCH MCHC RDW RDW Differential Plt Count MPV Immature Gran % (Auto) Neut % (Auto) Lymph % (Auto) [place] % (Auto) Eos % (Auto) Baso % (Auto) Absolute Neuts (auto) Absolute Lymphs (auto) Total Counted Sodium 143 Potassium 4.7 Chloride 115 H Carbon Dioxide 23.0 Anion Gap 5 BUN 48 H Creatinine 2.56 H Estim Creat Clear Calc 29.01 Est GFR (MDRD) Af Amer 32 L Est GFR (MDRD) Non-Af 27 L BUN/Creatinine Ratio 18.8 Glucose 97 Lactic Acid Calcium 8.2 L Total Bilirubin AST ALT Alkaline Phosphatase Troponin I Total Protein Albumin Globulin Albumin/Globulin Ratio Urine Color Urine Clarity Urine pH Ur Specific [place] Urine Protein Urine Glucose (UA) Urine Ketones Urine Occult Blood Urine Nitrite Urine Bilirubin Urine Urobilinogen Ur Leukocyte Esterase Urine RBC Urine WBC Ur Squamous Epith Cells Urine Bacteria Hyaline Casts Urine Mucus Ur Random Sodium 41 Urine Creatinine 77.40 10/15/18 10/15/18 04:15 04:15 WBC 6.7 RBC 4.15 L Hgb 13.2 Hct 39.4 L MCV 94.9 H MCH 31.8 MCHC 33.5 RDW 13.2 RDW Differential 44.4 H Plt Count 269 MPV 9.2 Immature Gran % (Auto) Neut % (Auto) Lymph % (Auto) [place] % (Auto) Eos % (Auto) Baso % (Auto) Absolute Neuts (auto) Absolute Lymphs (auto) Total Counted Sodium 145 Potassium 5.6 H Chloride 118 H Carbon Dioxide 20.0 L Anion Gap 7 BUN 44 H Creatinine 2.12 H Estim Creat Clear Calc 35.03 Est GFR (MDRD) Af Amer 40 L Est GFR (MDRD) Non-Af 33 L BUN/Creatinine Ratio 20.8 H Glucose 80 Lactic Acid Calcium 8.1 L Total Bilirubin AST ALT Alkaline Phosphatase Troponin I Total Protein Albumin Globulin Albumin/Globulin Ratio Urine Color Urine Clarity Urine pH Ur Specific [place] Urine Protein Urine Glucose (UA) Urine Ketones Urine Occult Blood Urine Nitrite Urine Bilirubin Urine Urobilinogen Ur Leukocyte Esterase Urine RBC Urine WBC Ur Squamous Epith Cells Urine Bacteria Hyaline Casts Urine Mucus Ur Random Sodium Urine Creatinine Clinical Impression(s) from Imaging Studies Renal Ultrasound 10/15/18 08:41 IMPRESSION: Bilateral renal cysts more prominent on the left side. Nonobstructive bilateral intrarenal calculi. Electronically Signed: Efrain Dominique MD at 14:18 EST Tel [phone], Service support , Assessment/Plan All Active Problems (Last Reviewed 10/15/18 @ 05:39 by Candelario Robb MD) Syncope (Acute) Hypotension (Acute) 1. DAWN on CKD stage 3 likely due to prerenal event from hypotension, dehydration, ARB, NSAID use. Baseline creatinine 1.5 in June 2018 increased to 2.7 on admit down to 2.2 today after iv hydration. Agree with holding ARB. Avoid NSAIDs. Renal US from today showed bilateral renal cysts with nonobstructing stones. 2. Syncope due to Hypotension, dehydration. 3. Hyperkalemia follow 2g K diet, kayexalate. Stop NSAID use. 4. Bladder ca s/p surgery. Recommend f/u with 5. PAD s/p bypass with claudication. Vascular following 6. COPD 7. Tobacco use 8. Hyperlipidemia on statin
--- NOTE | 2018-10-15 08:41 | US_ITS ---
STUDY: RENAL ULTRASOUND - COMPLETE REASON FOR EXAM: Male, 68 years old. Acute renal failure. TECHNIQUE: Ultrasound evaluation of the kidneys was performed with real-time and static newman-scale imaging. COMPARISON: None. FINDINGS: RIGHT KIDNEY: Normal location of the right kidney, which is normal in size. The right kidney measures 10.7 cm x 5.1 cm x 5.3 cm. There is a normal cortex of the right kidney. The renal cortex measures 1.4 cm. There is an 8 mm x 9 mm x 8 mm cyst. This arises from the lateral aspect of the kidney. Findings suggestive of a 2 nonobstructive intrarenal calculi in the larger measuring 1.1 cm. There is no right hydronephrosis. DISTAL RIGHT URETER: There is non-visualization of the distal right ureter. There is no demonstrated right ureterovesical junction calculus. There is no demonstrated right ureteral jet. LEFT KIDNEY: Normal location of the left kidney, which is normal in size. The left kidney measures 10.5 cm x 5.5 cm x 5.5 cm. There is a normal cortex of the left kidney. The renal cortex measures 1.2 cm. There is a 5.8 cm x 7.7 cm x 5.6 cm septated left renal cyst. 2 small intrarenal calculi are seen. The larger measures 8 mm x 6 mm. There is no left hydronephrosis. DISTAL LEFT URETER: There is non-visualization of the distal left ureter. There is no demonstrated left ureterovesical junction calculus. There is no demonstrated left ureteral jet. BLADDER: The distended urinary bladder has a volume of 100 ml. There is a normal wall thickness of the distended urinary bladder. There is no demonstrated mass within the urinary bladder. There are no demonstrated bladder calculi. US/Kidney and Bladder IMPRESSION: Bilateral renal cysts more prominent on the left side. Nonobstructive bilateral intrarenal calculi. Electronically Signed: Efrain Dominique MD at 14:18 EST Tel [phone], Service support ,
--- NOTE | 2018-10-15 10:10 | CASEMGMT ---
DAVEY AMARAL ASSESSMENT D/C PLAN: Home with family support and discharge plans in place. Face to Face with patient for initial transition planning/care coordination assessment. DAVEY AMARAL introduced self and role at [facility]. Pt voices understanding and consents to assessment at this time. Pt resting in bed in no distress at this time. Pt is A/O at this time and answers all questions appropriately. Care providers, pharmacy, and demographics verified/updated at this time. PCP: Nitish Specialists: Sriram Olson/Amy, Ze. Preferred Pharmacy: [facility] [place]. [facility] Retail pharmacy on day of d/c only. Insurance: MCR, [employer] Supplement. Prescription Benefit: Yes. Thinks it is [facility], but is not certain. Living Will/HPOA: has both LW and HCPOA, who is his , Clarice. States he is not certain where a copy if these are but he will try and find once he returns home. LNOK: Living Arrangements: Lives with his in a one-story home. 4 steps to enter. Denies difficulties. is independent at home and his and him share household mgmnt tasks. Transportation: Pt drives self and states no transportation concerns at this time. also drives. DME: Has grab bars and uses CPAP, which he got through [employer]. Pt states no need for further DME at this time. HHC/SNF: has never used HHC in the past and has been to a Rehab unit after a bad fall in May of 2015. Declines need for HHC on discharge. was just starting out-pt physical therapy @ [facility] this past week. Wishes to return there for therapy after discharge as long as he is medically cleared. Pt wishes to return home and states has no concerns with going home at time of discharge. Pt does not drink ETOH. States he smoked since the age of 13 and just quit 2 months ago. Pt voices no further concerns/needs at this time. Advised pt to ask for CM if any further questions/concerns/needs arise. Voices understanding. Lizette WINCHESTER RN, CM
[2018-10-15] MEDS: Gabapentin 100 MG Capsule PO ×2 (10:35→16:45)
[2018-10-15] MEDS: Sodium Polystyrene Sulfonate 15 GM/60 ML UDC PO (10:35)
[2018-10-15] MEDS: Cilostazol 50 MG Tablet 100 MG PO ×2 (10:36→16:48)
[2018-10-15] MEDS: Pantoprazole Sodium 20 MG Tablet PO ×2 (10:36→22:03)
--- NOTE | 2018-10-15 11:00 | PCM.PROGNOTE ---
Patient Problems: Active and Suspected Problems (Last Reviewed 10/15/18 @ 05:39 by Candelario Robb MD) Syncope (Acute) Hypotension (Acute) Subjective: Chief complaint: Follow-up after admission for syncopal episode, hypotension and acute kidney injury on top of stage III chronic kidney disease as well as hyperkalemia. Patient seen and examined. No acute events. Today, he feels better. He denied dizziness, lightheadedness, syncope or presyncope. He denies chest pain shortness of breath. He mentioned that he was not drinking enough water and he had several episodes of diarrhea a few days ago. Blood pressure stabilized, other vital signs are stable. - Physical Exam General: Alert, Oriented x3, Cooperative, No apparent distress HEENT: Atraumatic, PERRLA, EOMI, Normocephalic Oral: Moist Mucosa, No Gingival or Mucosal Lesions/ Ulcerations Neck: Supple, No JVD, Negative Carotid Bruits, Trachea Midline, Thyroid Normal Size and Texture Lungs: Clear to auscultation, Normal air movement, No rhonchi, No wheeze, No rales Cardiovascular: Regular rate, Regular Rhythm, Normal S1, Normal S2, No murmurs Abdomen: Bowel Sounds Present, Soft, Non Tender, Non-Distended, No Hepato-splenomegaly Extremities: No clubbing, No cyanosis, No edema Skin: No rashes, No breakdown Lymphatic: No Cervical, Supraclavicular, or Inguinal Adenopathy Neurological: Cranial nerves II-XII grossly intact, Motor Exam 5/5 strength throughout Psych/Mental Status: Normal Affect, Appropriate, Alert and oriented to time, place, person, mood and affect Vital Signs Temp Pulse Resp BP Pulse Ox 98.1 F 86 22 H 139/80 H 96 10/15/18 08:00 10/15/18 10:00 10/15/18 08:00 10/15/18 08:00 10/15/18 10:00 Oxygen Flow Rate (L/min) 2 Oxygen Delivery Method Room Air Weight: 194 lb 7.163 oz Body Mass Index (BMI) 27.1 Finger Stick Blood Glucose 134 Intake and Output for Last 24 Hours 10/13/18 10/14/18 10/15/18 23:59 23:59 23:59 Intake Total 2398 / 2398 722 / 722 Output Total 950 / 950 850 / 850 Balance 1448 / 1448 -128 / -128 Laboratory Tests Past 24 Hrs 10/14/18 10/14/18 10/14/18 15:40 15:40 15:40 WBC 8.9 RBC 4.93 Hgb 15.4 Hct 46.9 MCV 95.1 H MCH 31.2 MCHC 32.8 RDW 13.5 RDW Differential 47.0 H Plt Count 298 MPV 9.0 Immature Gran % (Auto) 0.200 Neut % (Auto) 66.0 Lymph % (Auto) 20.5 [place] % (Auto) 9.0 Eos % (Auto) 3.6 Baso % (Auto) 0.7 Absolute Neuts (auto) 5.9 Absolute Lymphs (auto) 1.83 Total Counted Not Reportable Sodium Cancelled Potassium Cancelled Chloride Cancelled Carbon Dioxide Cancelled Anion Gap Cancelled BUN Cancelled Creatinine Cancelled Estim Creat Clear Calc Cancelled Est GFR (MDRD) Af Amer Cancelled Est GFR (MDRD) Non-Af Cancelled BUN/Creatinine Ratio Cancelled Glucose Cancelled Lactic Acid 1.3 Calcium Cancelled Total Bilirubin Cancelled AST Cancelled ALT Cancelled Alkaline Phosphatase Cancelled Troponin I Cancelled Total Protein Cancelled Albumin Cancelled Globulin Cancelled Albumin/Globulin Ratio Cancelled Urine Color Urine Clarity Urine pH Ur Specific [place] Urine Protein Urine Glucose (UA) Urine Ketones Urine Occult Blood Urine Nitrite Urine Bilirubin Urine Urobilinogen Ur Leukocyte Esterase Urine RBC Urine WBC Ur Squamous Epith Cells Urine Bacteria Hyaline Casts Urine Mucus Ur Random Sodium Urine Creatinine 10/14/18 10/14/18 10/14/18 16:30 17:25 18:35 WBC RBC Hgb Hct MCV MCH MCHC RDW RDW Differential Plt Count MPV Immature Gran % (Auto) Neut % (Auto) Lymph % (Auto) [place] % (Auto) Eos % (Auto) Baso % (Auto) Absolute Neuts (auto) Absolute Lymphs (auto) Total Counted Sodium Cancelled 141 Potassium Cancelled 5.8 H Chloride Cancelled 113 H Carbon Dioxide Cancelled 22.0 Anion Gap Cancelled 6 BUN Cancelled 50 H Creatinine Cancelled 2.78 H Estim Creat Clear Calc Cancelled 26.71 Est GFR (MDRD) Af Amer Cancelled 29 L Est GFR (MDRD) Non-Af Cancelled 24 L BUN/Creatinine Ratio Cancelled 18.0 Glucose Cancelled 87 Lactic Acid Calcium Cancelled 8.3 L Total Bilirubin Cancelled 0.30 AST Cancelled 12 L ALT Cancelled 20 Alkaline Phosphatase Cancelled 80 Troponin I Cancelled < 0.015 Total Protein Cancelled 6.1 L Albumin Cancelled 3.1 L Globulin Cancelled 3.0 Albumin/Globulin Ratio Cancelled 1.0 Urine Color Yellow Urine Clarity Clear Urine pH 6.0 Ur Specific [place] 1.010 Urine Protein Negative Urine Glucose (UA) Normal Urine Ketones Negative Urine Occult Blood Negative Urine Nitrite Negative Urine Bilirubin Negative Urine Urobilinogen Normal Ur Leukocyte Esterase Negative Urine RBC 0 SEEN Urine WBC 0-5 SEEN Ur Squamous Epith Cells 0 SEEN Urine Bacteria 0 SEEN Hyaline Casts 0-5 SEEN Urine Mucus 0 SEEN Ur Random Sodium Urine Creatinine 10/14/18 10/14/18 10/14/18 18:35 18:35 22:15 WBC RBC Hgb Hct MCV MCH MCHC RDW RDW Differential Plt Count MPV Immature Gran % (Auto) Neut % (Auto) Lymph % (Auto) [place] % (Auto) Eos % (Auto) Baso % (Auto) Absolute Neuts (auto) Absolute Lymphs (auto) Total Counted Sodium 143 Potassium 4.7 Chloride 115 H Carbon Dioxide 23.0 Anion Gap 5 BUN 48 H Creatinine 2.56 H Estim Creat Clear Calc 29.01 Est GFR (MDRD) Af Amer 32 L Est GFR (MDRD) Non-Af 27 L BUN/Creatinine Ratio 18.8 Glucose 97 Lactic Acid Calcium 8.2 L Total Bilirubin AST ALT Alkaline Phosphatase Troponin I Total Protein Albumin Globulin Albumin/Globulin Ratio Urine Color Urine Clarity Urine pH Ur Specific [place] Urine Protein Urine Glucose (UA) Urine Ketones Urine Occult Blood Urine Nitrite Urine Bilirubin Urine Urobilinogen Ur Leukocyte Esterase Urine RBC Urine WBC Ur Squamous Epith Cells Urine Bacteria Hyaline Casts Urine Mucus Ur Random Sodium 41 Urine Creatinine 77.40 10/15/18 10/15/18 04:15 04:15 WBC 6.7 RBC 4.15 L Hgb 13.2 Hct 39.4 L MCV 94.9 H MCH 31.8 MCHC 33.5 RDW 13.2 RDW Differential 44.4 H Plt Count 269 MPV 9.2 Immature Gran % (Auto) Neut % (Auto) Lymph % (Auto) [place] % (Auto) Eos % (Auto) Baso % (Auto) Absolute Neuts (auto) Absolute Lymphs (auto) Total Counted Sodium 145 Potassium 5.6 H Chloride 118 H Carbon Dioxide 20.0 L Anion Gap 7 BUN 44 H Creatinine 2.12 H Estim Creat Clear Calc 35.03 Est GFR (MDRD) Af Amer 40 L Est GFR (MDRD) Non-Af 33 L BUN/Creatinine Ratio 20.8 H Glucose 80 Lactic Acid Calcium 8.1 L Total Bilirubin AST ALT Alkaline Phosphatase Troponin I Total Protein Albumin Globulin Albumin/Globulin Ratio Urine Color Urine Clarity Urine pH Ur Specific [place] Urine Protein Urine Glucose (UA) Urine Ketones Urine Occult Blood Urine Nitrite Urine Bilirubin Urine Urobilinogen Ur Leukocyte Esterase Urine RBC Urine WBC Ur Squamous Epith Cells Urine Bacteria Hyaline Casts Urine Mucus Ur Random Sodium Urine Creatinine Medical Necessity - Tobacco Use Smoking Status: Former smoker - He reports quitting smoking about a month ago. Tobacco Use: Cigarettes Assessment/Plan All Active Problems (Last Reviewed 10/15/18 @ 05:39 by Candelario Robb MD) Syncope (Acute) Hypotension (Acute) This is a 68 years old male patient presented to the ED because of syncopal episode, dizziness and he was found to have hypotension, acute kidney injury on top of stage III chronic kidney disease as well as hyperkalemia. #1 syncopal episode: Probably due to vasovagal syncope secondary to hypotension. Patient has been on IV fluids, blood pressure stabilized, denied any more dizziness or lightheadedness. EKG revealed normal sinus rhythm without evidence of acute ischemic changes or cardiac arrhythmias. Troponin was negative. Plan to continue IV fluids, transfer to [facility] with telemetry. #2 hypotension: Attributed to dehydration and antihypertensive medications. Patient was on IV fluids, blood pressure stabilized. Most recent blood pressure was 133/55. Other vitals are stable. Plan to continue IV fluids, keep holding antihypertensive medications, repeat CBC and BMP tomorrow morning. #3 hyperkalemia: Attributed to acute kidney injury on top of stage III kidney disease and dehydration. EKG revealed no acute changes related to hyperkalemia. Patient received 1 dose of Kayexalate this morning. Plan to repeat potassium at 8 PM tonight, repeat BMP tomorrow morning. #4 acute kidney injury double stage III chronic kidney disease: Baseline creatinine has been around 1.4-1.8 mg/dL. Admission creatinine was 2.78. It is secondary to hypotension, losartan and ibuprofen. Patient has been taking ibuprofen vitamin p.o. twice daily for a long time. He is on IV fluids, kidney function started to improve, creatinine is down to 2.12 today. Nephrology consulted, renal ultrasound ordered. Plan to continue same treatment, continue IV fluids, repeat BMP tomorrow morning. #5 hypertension: Patient was hypotensive, stabilized at this time. Plan to continue monitor, keep holding losartan. #6 peripheral vascular disease: Stable, continue cilostazol and statins. #7 hyperlipidemia: Continue statins. #8 DVT prophylaxis: Subcu heparin. This note was generated with [employer] dictation software. It may contain incorrect words, spelling, and punctuation that were not noted in checking the note before signing. Code Visit Inpatient E&M: 63667 Subs Hosp L2
--- NOTE | 2018-10-15 11:17 | NURSING ---
report called to med-surg 3 for transfer to 325, transferred per chair with belongings
--- NOTE | 2018-10-15 11:18 | CASEMGMT ---
As per admitting RN, pt does not have a living will, has POA papers but pt is not able to bring in the papers at this time. JASMINA Thomas, [employer] INSTALLATION HELPER
[2018-10-15] MEDS: 0.9% NaCl Peripheral Flush Adult/Peds IV (14:19)
--- NOTE | 2018-10-15 14:54 | CHAPLAIN ---
Type of Pastoral Visit _x__ Initial Visit ___ Follow-up Visit ___ On-call Visit ___ General Patient Visit ___ Spiritual Assessment ___ Family Conference ___ Bereavement ___ Rapid Response ___ Code Blue ___ Other (describe below) Pastoral Care Referral From _x__ Patient ___ Family ___ Nurse ___ Physician ___ Battery Starter ___ Crate Icer ___ Other (describe below) Sacrament/Intervention _x__ Active listening ___ Anointing ___ Samaritan ___ Bereavement ___ Communion _x__ Bia exploration ___ _x__ Life review _x__ Prayer ___ Reconciliation ___ Sacrament of Sick _x__ Supportive presence ___ Wedding ___ Other (describe below) Pastoral Comments
[2018-10-15] MEDS: Clopidogrel Bisulfate 75 MG Tablet PO (16:46)
[2018-10-15 20:41] LABS: Potassium 4.9 mmol/L (3.5-5.1)
[2018-10-15] MEDS: Atorvastatin Calcium 10 MG Tablet PO (22:03)
[2018-10-16] VITALS (7 sets, daily range): BP systolic 94–155; BP diastolic 60–85; PULSE 88–105; RESP 18; TEMP 36.6; O2SAT 89–94
[2018-10-16] MEDS: Lactated Ringers 1,000 ML 100 ML IV (00:57)
[2018-10-16 01:14] LABS: Anion Gap 7 (5-15); BUN 32 mg/dL (7-18); BUN/Creat Ratio 18.6 RATIO (10-20); Calcium,Total 8.6 mg/dL (8.5-10.1); Chloride 114 mmol/L (98-107); Creatinine, Serum 1.72 mg/dL (0.70-1.30); EST Glomerular Filtration Rate 42 mL/min (>60); Est Glom Filt Rate - Afr Amer 51 mL/min (>60); Estimated Creatinine Clearance 43.17 ml/min; Glucose 92 mg/dL (74-106); Magnesium 1.8 mg/dL (1.6-2.6); Potassium 4.9 mmol/L (3.5-5.1); Sodium Level 143 mmol/L (136-145)
[2018-10-16 06:16] LABS: Absolute Lymphocyte Count 1.75 X10^3/ul (0.83-4.51); Basophil# 0.04 X10^3/uL; Basophil% 0.4 % (0-1); Eosinophil# 0.28 X10^3/uL; Eosinophils% 3.1 % (0-5); Hematocrit 40.9 % (40-54); Hemoglobin 13.5 g/dl (13.0-16.5); Lymphocyte # 1.75 X10^3/ul (4.0); Lymphocyte % 19.6 % (19-41); Mean Corpuscular Hgb 30.9 pg (27.0-32.0); Mean Corpuscular Volume 93.6 fL (80-94); Mean Platelet Vol. 8.7 fl (6.2-12.0); Monocyte# 0.84 X10^3/uL; Monocyte% 9.4 % (0-10); Neutrophil # 5.99 X10^3/uL (2.7-7.7); Neutrophil % 67.4 % (47-70); Platelet Count 253 K/mm3 (150-450); RBC Distribution Width CV 13.1 % (11.6-14.6); RBC Distribution Width SD 45.1 fl (35.1-43.9); Red Blood Count 4.37 M/mm3 (4.6-6.2); White Blood Count 8.9 K/mm3 (4.4-11.0)
[2018-10-16 06:24] LABS: POSITIVE COUNT NO; POSITIVE DIFFERENTIAL NO; POSITIVE MORPHOLOGY NO
[2018-10-16] MEDS: Heparin Injection (Vial) 5,000 UNIT/ML VIAL 5000 UNIT SC (06:36)
[2018-10-16 06:41] LABS: Albumin, Serum 3.1 g/dL (3.2-5.0); BUN 28 mg/dL (7-18); BUN/Creat Ratio 16.7 RATIO (10-20); Calcium,Total 8.9 mg/dL (8.5-10.1); Chloride 113 mmol/L (98-107); Creatinine, Serum 1.68 mg/dL (0.70-1.30); EST Glomerular Filtration Rate 43 mL/min (>60); Est Glom Filt Rate - Afr Amer 52 mL/min (>60); Glucose 91 mg/dL (74-106); Phosphorus 2.6 mg/dL (2.5-4.9); Potassium 4.6 mmol/L (3.5-5.1); Sodium Level 144 mmol/L (136-145)
[2018-10-16] MEDS: Acetaminophen 500 MG Tablet 1000 MG PO (07:08)
--- NOTE | 2018-10-16 07:29 | NURSING ---
during shift report, pt stated he has had a headache since 11pm. He had denied pain all shift -until this am he stated he had a headache. I called the dr and got an order for Tylenol for him. pt also said he has had an upset stomach. The dayshift nurse and myself-offered to get him medication. Pt refused and said that he would take something at home. States his is on her way to get him.
--- NOTE | 2018-10-16 07:35 | NURSING ---
Pt. expresses desire to go home and states that he has already called his to come get him. He c/o headache (night clerk nurse administered Tylenol) and nausea (refuses antiemetic at this time). Pt. states that he did not rest well last night and is tired of being poked and prodded. He admits that he and his were supposed to see an analytical sciences director today but now they won't be able to. Irritability noted during bedside report. MD to be notified of above.
--- NOTE | 2018-10-16 07:57 | NURSING ---
Notified charger testerYris, that pt. has signed AMA paperwork and is leaving the hospital.
--- NOTE | 2018-10-16 08:00 | NURSING ---
Dr. Aguilar requests that pt. wait for him to arrive to floor to talk to him. Pt. agrees and is sitting up in recliner.
[2018-10-16] MEDS: Cilostazol 50 MG Tablet 100 MG PO (09:08)
[2018-10-16] MEDS: Gabapentin 100 MG Capsule PO (09:11)
[2018-10-16] MEDS: Pantoprazole Sodium 20 MG Tablet PO (09:11)
--- NOTE | 2018-10-16 09:16 | DCINST_ITS ---
- Discharge Diagnoses Current Active Problems: Current Active and Chronic Problems (Last Reviewed 10/15/18 @ 05:39 by Candelario Robb MD) Syncope (Acute) Hypotension (Acute) You will use the following diet at home:: Cardiac Your food should be the consistency of: Regular Discharge Activity: Return to Normal Activity Weight Bearing Status: Weight bearing as tolerated Call your doctor if you observe: Fever of 101 or Higher, Shortness of breath, Dizziness, Fainting spells, Swelling in the ankles, Chest pain, Increased palpitations (irregular heartbeat), Uncontrolled pain Allergies/Adverse Reactions: Allergies morphine Allergy (Verified 06/11/18 14:31) Other Medications to take at Discharge Atorvastatin Calcium [Lipitor] 10 mg PO QHS 10/14/18 Cilostazol [Pletal] 100 mg PO BIDAC 10/14/18 Clopidogrel Bisulfate [Plavix] 75 mg PO DAILY 10/14/18 Gabapentin [Neurontin] 400 mg PO TIDCM 10/14/18 Losartan Potassium [Cozaar] 50 mg PO DAILY 10/14/18 Omeprazole [Prilosec] 20 mg PO BID 10/14/18 Orders to be completed after discharge: Basic Metabolic Profile (BMP) Time Frame: 1 Week, Location: Laboratory Primary Care Physician: Karan Talbert MD [Primary Care Provider] - Please follow up with your Primary Care Physician in: 1 week. Test Results: Test results from this visit will be discussed in further detail at your follow- up appointment, if applicable. Please Follow Up With: Sheryl Gomez DO When: 2-3 weeks.
--- NOTE | 2018-10-16 10:51 | PCM.PROGNOTE ---
Subjective: LATE ENTRY Patient did well overnight. Patient with no symptoms this morning. Did discuss with patient's at the bedside. Patient denied any orthostatic type symptoms. No cough, fever, chills, nausea or vomiting reported. - Physical Exam General: Alert, Oriented x3, Cooperative, No apparent distress, Well developed, Well nourished, - - Taking in full sentences. HEENT: Atraumatic, PERRLA, EOMI, Normocephalic, - - No scleral icterus or injection noted. Oral: Moist Mucosa, No Gingival or Mucosal Lesions/ Ulcerations Neck: Supple, No JVD, No Nodes, Trachea Midline Lungs: Clear to auscultation, Normal air movement, No rhonchi, No wheeze, No rales Cardiovascular: Regular rate, Normal S1, Normal S2, No murmurs, No rub noted, No Gallop Abdomen: Bowel Sounds Present, Soft, Non Tender, Non-Distended Extremities: No clubbing, No cyanosis, No edema, Capillary Refill Less than 3 Seconds Skin: No rashes, No breakdown Musculoskeletal: No Tenderness to Palpation of Joints or Extremities Lymphatic: No Cervical, Supraclavicular, or Inguinal Adenopathy Neurological: Cranial nerves II-XII grossly intact, Neuro grossly intact, Motor Exam 5/5 strength throughout Psych/Mental Status: Alert and oriented to time, place, person, mood and affect Vital Signs Temp Pulse Resp BP Pulse Ox 36.6 C 105 H 18 155/85 H 91 10/16/18 09:03 10/16/18 09:02 10/16/18 02:23 10/16/18 09:02 10/16/18 09:03 Oxygen Flow Rate (L/min) 2 Oxygen Delivery Method Room Air Weight: 86.591 kg Body Mass Index (BMI) 27.1 Finger Stick Blood Glucose 134 Intake and Output for Last 24 Hours 10/14/18 10/15/18 10/16/18 23:59 23:59 23:59 Intake Total 2398 / 2398 1775 / 1775 1569 / 1569 Output Total 950 / 950 1150 / 1150 1775 / 1775 Balance 1448 / 1448 625 / 625 -206 / -206 Laboratory Tests Past 24 Hrs 10/15/18 10/16/18 10/16/18 20:15 00:43 05:50 WBC RBC Hgb Hct MCV MCH MCHC RDW RDW Differential Plt Count MPV Immature Gran % (Auto) Neut % (Auto) Lymph % (Auto) [place] % (Auto) Eos % (Auto) Baso % (Auto) Absolute Neuts (auto) Absolute Lymphs (auto) Total Counted Sodium 143 144 Potassium 4.9 4.9 4.6 Chloride 114 H 113 H Carbon Dioxide 22.0 23.0 Anion Gap 7 BUN 32 H 28 H Creatinine 1.72 H 1.68 H Estim Creat Clear Calc 43.17 44.20 Est GFR (MDRD) Af Amer 51 L 52 L Est GFR (MDRD) Non-Af 42 L 43 L BUN/Creatinine Ratio 18.6 16.7 Glucose 92 91 Calcium 8.6 8.9 Phosphorus 2.6 Magnesium 1.8 Albumin 3.1 L 10/16/18 05:50 WBC 8.9 RBC 4.37 L Hgb 13.5 Hct 40.9 MCV 93.6 MCH 30.9 MCHC 33.0 RDW 13.1 RDW Differential 45.1 H Plt Count 253 MPV 8.7 Immature Gran % (Auto) 0.100 Neut % (Auto) 67.4 Lymph % (Auto) 19.6 [place] % (Auto) 9.4 Eos % (Auto) 3.1 Baso % (Auto) 0.4 Absolute Neuts (auto) 6.0 Absolute Lymphs (auto) 1.75 Total Counted Not Reportable Sodium Potassium Chloride Carbon Dioxide Anion Gap BUN Creatinine Estim Creat Clear Calc Est GFR (MDRD) Af Amer Est GFR (MDRD) Non-Af BUN/Creatinine Ratio Glucose Calcium Phosphorus Magnesium Albumin Clinical Impression(s) from Imaging Studies Renal Ultrasound 10/15/18 08:41 IMPRESSION: Bilateral renal cysts more prominent on the left side. Nonobstructive bilateral intrarenal calculi. Electronically Signed: Efrain Dominique MD at 14:18 EST Tel [phone], Service support , Medical Necessity - Tobacco Use Smoking Status: Former smoker Tobacco Use: Cigarettes Assessment/Plan All Active Problems (Last Reviewed 10/15/18 @ 05:39 by Candelario Robb MD) Syncope (Acute) Hypotension (Acute) RECOMMENDATIONS: 1. Close observation of blood pressure at home 2. No outpatient or antibiotics follow-up indicated 3. Okay to discharge from my perspective IMPRESSIONS: 1. Hypotension Clinical suspicion for hypovolemic hypotension, possibly from dehydration. Patient appears to be responding to rehydration alone. Patient's blood pressure has been good for over 24 hours. Patient is not giving any signs or symptoms of sepsis at this time. Differential would include medication effect versus dehydration. No outpatient follow-up as indicated. Patient okay to be discharged from my perspective. 2. Acute on chronic kidney disease stage III Patient was significant elevation in creatinine. This may be secondary to volume depletion and ARB therapy. Hyperkalemia likely secondary to hemolysis on labs. Would not actively treat potassium level. Telemetry does not look to have changes. Avoid nephrotoxic medications. Continue to monitor renal panel on a daily basis. 3. Hypertension/hyperlipidemia/history of basal cell/peripheral artery disease Complicates care, management, recovery and prognosis. Home hypertensive medications have been held secondary to acute condition. Okay to continue with PAD medications from my perspective. Code Visit Inpatient E&M: 31432 Subs Hosp L2
--- NOTE | 2018-10-16 11:48 | PCM.DC.SUM ---
Discharge Date and Diagnosis Date of Admission: 10/14/18 Date of Discharge: 10/16/18 - Primary Discharge Diagnosis #1 acute kidney injury on top of stage III chronic kidney disease. #2 hyperkalemia. #3 syncopal episode due to orthostatic hypotension. - Secondary Discharge Diagnosis Chronic Problems (Last Reviewed 10/15/18 @ 05:39 by Candelario Robb MD) Near syncope (Chronic) Orthostatic hypotension (Chronic) HTN (hypertension) (Chronic) HLD (hyperlipidemia) (Chronic) Basal cell carcinoma (Chronic) PAD (peripheral artery disease) (Chronic) Kidney calculi (Chronic) TIA (transient ischemic attack) (Chronic) Hospital Course and Treatment Imaging Results: Clinical Impression(s) from Imaging Studies Chest X-Ray 10/14/18 15:25 IMPRESSION: Hyperinflation. The lungs are clear. Electronically Signed: Efrain Dominique MD at 15:43 EST Tel [phone], Service support , Renal Ultrasound 10/15/18 08:41 IMPRESSION: Bilateral renal cysts more prominent on the left side. Nonobstructive bilateral intrarenal calculi. Electronically Signed: Efrain Dominique MD at 14:18 EST Tel [phone], Service support , Dr. Gomez, nephrology. Dr. Childs, critical care. Operations: None Procedures: 2-D Echocardiogram, EKG Summary of Care Provided: Patient seen and examined on the day of discharge and appeared to be stable to be discharged home. He complained of headache but improved. He has been ambulating without dizziness or lightheadedness. His orthostatic vitals were positive but he does have chronic orthostatic hypotension and he was asymptomatic this morning upon standing. His other vital signs are stable. This is a 68 years old male patient presented to the ED because of syncopal episode, dizziness and he was found to have hypotension, acute kidney injury on top of stage III chronic kidney disease as well as hyperkalemia. #1 syncopal episode: Attributed to orthostatic hypotension which was triggered by dehydration and poor oral intake. Patient was initially treated in intensive care unit because of very low blood pressure, treated with IV fluids and he responded to fluids very well. EKG revealed normal sinus rhythm without evidence of acute ischemic changes or cardiac arrhythmias. Troponin was negative. #3 hyperkalemia: Attributed to acute kidney injury on top of stage III kidney disease and dehydration. Treated conservatively with IV fluids and Kayexalate. EKG revealed no acute changes related to hyperkalemia. Potassium was 5.6, with treatment, came down to 4.6 upon discharge. #4 acute kidney injury double stage III chronic kidney disease: Baseline creatinine has been around 1.4-1.8 mg/dL. Admission creatinine was 2.78. It is secondary to hypotension dehydration, poor oral intake, losartan and ibuprofen. He was treated with IV fluids and his kidney function improved. Creatinine upon discharge was 1.68. Nephrology consulted, recommended renal ultrasound that revealed bilateral renal cysts with nonobstructive bilateral intrarenal calculi. #5 hypertension: Started back on losartan. #6 peripheral vascular disease: Stable, continued on cilostazol and statins. On the day of discharge, his orthostatic vitals were positive, blood pressure dropped more than 40 points but he was asymptomatic. He does have a history of chronic orthostatic hypotension. Patient discharged home in a stable medical condition, ibuprofen discontinued, continued on losartan, statins, Plavix, gabapentin, cilostazol and omeprazole, order given to repeat BMP in 1 week, recommended from PCP in 1 week and follow-up with nephrology in 2 weeks. This note was generated with [employer] dictation software. It may contain incorrect words, spelling, and punctuation that were not noted in checking the note before signing. - Physical Exam General: Alert, Oriented x3, Cooperative, No apparent distress HEENT: Atraumatic, PERRLA, EOMI, Normocephalic Oral: Moist Mucosa, No Gingival or Mucosal Lesions/ Ulcerations Neck: Supple, No JVD, Negative Carotid Bruits, Trachea Midline, Thyroid Normal Size and Texture Lungs: Clear to auscultation, No wheeze, No rales, Diminished Cardiovascular: Regular rate, Regular Rhythm, Normal S1, Normal S2, PMI Normal Abdomen: Bowel Sounds Present, Soft, Non Tender, Non-Distended, No Hepato-splenomegaly Extremities: No clubbing, No cyanosis, No edema Skin: No rashes, No breakdown Lymphatic: No Cervical, Supraclavicular, or Inguinal Adenopathy Neurological: Cranial nerves II-XII grossly intact, Neuro grossly intact Psych/Mental Status: Normal Affect, Appropriate Vital Signs Temp Pulse Resp BP Pulse Ox 97.9 F 105 H 18 155/85 H 91 10/16/18 09:03 10/16/18 09:02 10/16/18 02:23 10/16/18 09:02 10/16/18 09:03 Oxygen Flow Rate (L/min) 2 Oxygen Delivery Method Room Air Weight: 190 lb 14.4 oz Body Mass Index (BMI) 27.1 Finger Stick Blood Glucose 134 Intake and Output for Last 24 Hours 10/14/18 10/15/18 10/16/18 23:59 23:59 23:59 Intake Total 2398 / 2398 1775 / 1775 1569 / 1569 Output Total 950 / 950 1150 / 1150 1775 / 1775 Balance 1448 / 1448 625 / 625 -206 / -206 Laboratory Tests Past 24 Hrs 10/15/18 10/16/18 10/16/18 20:15 00:43 05:50 WBC RBC Hgb Hct MCV MCH MCHC RDW RDW Differential Plt Count MPV Immature Gran % (Auto) Neut % (Auto) Lymph % (Auto) Logan % (Auto) Eos % (Auto) Baso % (Auto) Absolute Neuts (auto) Absolute Lymphs (auto) Total Counted Sodium 143 144 Potassium 4.9 4.9 4.6 Chloride 114 H 113 H Carbon Dioxide 22.0 23.0 Anion Gap 7 BUN 32 H 28 H Creatinine 1.72 H 1.68 H Estim Creat Clear Calc 43.17 44.20 Est GFR (MDRD) Af Amer 51 L 52 L Est GFR (MDRD) Non-Af 42 L 43 L BUN/Creatinine Ratio 18.6 16.7 Glucose 92 91 Calcium 8.6 8.9 Phosphorus 2.6 Magnesium 1.8 Albumin 3.1 L 10/16/18 05:50 WBC 8.9 RBC 4.37 L Hgb 13.5 Hct 40.9 MCV 93.6 MCH 30.9 MCHC 33.0 RDW 13.1 RDW Differential 45.1 H Plt Count 253 MPV 8.7 Immature Gran % (Auto) 0.100 Neut % (Auto) 67.4 Lymph % (Auto) 19.6 Logan % (Auto) 9.4 Eos % (Auto) 3.1 Baso % (Auto) 0.4 Absolute Neuts (auto) 6.0 Absolute Lymphs (auto) 1.75 Total Counted Not Reportable Sodium Potassium Chloride Carbon Dioxide Anion Gap BUN Creatinine Estim Creat Clear Calc Est GFR (MDRD) Af Amer Est GFR (MDRD) Non-Af BUN/Creatinine Ratio Glucose Calcium Phosphorus Magnesium Albumin Discharge Activity: Return to Normal Activity Weight Bearing Status: Weight bearing as tolerated Call your doctor if you observe: Fever of 101 or Higher, Shortness of breath, Dizziness, Fainting spells, Swelling in the ankles, Chest pain, Increased palpitations (irregular heartbeat), Uncontrolled pain Home Medications: Medications to take at Discharge Atorvastatin Calcium [Lipitor] 10 mg PO QHS 10/14/18 Cilostazol [Pletal] 100 mg PO BIDAC 10/14/18 Clopidogrel Bisulfate [Plavix] 75 mg PO DAILY 10/14/18 Gabapentin [Neurontin] 400 mg PO TIDCM 10/14/18 Losartan Potassium [Cozaar] 50 mg PO DAILY 10/14/18 Omeprazole [Prilosec] 20 mg PO BID 10/14/18 Other Amb Orders: Basic Metabolic Profile (BMP) Time Frame: 1 Week, Location: Laboratory Primary Care Physician: Karan Talbert MD [Primary Care Provider] - Please follow up with your Primary Care Physician in: 1 week. Please Follow Up With: Sheryl Gomez DO When: 2-3 weeks. Disposition: Home Minutes spent on discharge:: 32 Patient Condition:: Stable Medical Necessity - Tobacco Use Smoking Status: Former smoker Tobacco Use: Cigarettes Meaningful Use Info Meaningful Use Diagnoses (Choose all that apply): None applicable Code Visit Inpatient E&M: 82681 Disch Hosp
--- NOTE | 2018-10-16 11:54 | DS.PCM_ITS ---
Discharge Date and Diagnosis Date of Admission: 10/14/18 Date of Discharge: 10/16/18 - Primary Discharge Diagnosis #1 acute kidney injury on top of stage III chronic kidney disease. #2 hyperkalemia. #3 syncopal episode due to orthostatic hypotension. - Secondary Discharge Diagnosis Chronic Problems (Last Reviewed 10/15/18 @ 05:39 by Candelario Robb MD) Near syncope (Chronic) Orthostatic hypotension (Chronic) HTN (hypertension) (Chronic) HLD (hyperlipidemia) (Chronic) Basal cell carcinoma (Chronic) PAD (peripheral artery disease) (Chronic) Kidney calculi (Chronic) TIA (transient ischemic attack) (Chronic) Hospital Course and Treatment Imaging Results: Clinical Impression(s) from Imaging Studies Chest X-Ray 10/14/18 15:25 IMPRESSION: Hyperinflation. The lungs are clear. Electronically Signed: Efrain Dominique MD at 15:43 EST Tel [phone], Service support , Renal Ultrasound 10/15/18 08:41 IMPRESSION: Bilateral renal cysts more prominent on the left side. Nonobstructive bilateral intrarenal calculi. Electronically Signed: Efrain Dominique MD at 14:18 EST Tel [phone], Service support , Dr. Gomez, nephrology. Dr. Childs, critical care. Operations: None Procedures: 2-D Echocardiogram, EKG Summary of Care Provided: Patient seen and examined on the day of discharge and appeared to be stable to be discharged home. He complained of headache but improved. He has been am bulating without dizziness or lightheadedness. His orthostatic vitals were positive but he does have chronic orthostatic hypotension and he was asymptomatic this morning upon standing. His other vital signs are stable. This is a 68 years old male patient presented to the ED because of syncopal episode, dizziness and he was found to have hypotension, acute kidney injury on top of stage III chronic kidney disease as well as hyperkalemia. #1 syncopal episode: Attributed to orthostatic hypotension which was triggered by dehydration and poor oral intake. Patient was initially treated in intensive care unit because of very low blood pressure, treated with IV fluids and he responded to fluids very well. EKG revealed normal sinus rhythm without evidence of acute ischemic changes or cardiac arrhythmias. Troponin was negative. #3 hyperkalemia: Attributed to acute kidney injury on top of stage III kidney disease and dehydration. Treated conservatively with IV fluids and Kayexalate. EKG revealed no acute changes related to hyperkalemia. Potassium was 5.6, with treatment, came down to 4.6 upon discharge. #4 acute kidney injury double stage III chronic kidney disease: Baseline creat inine has been around 1.4-1.8 mg/dL. Admission creatinine was 2.78. It is secondary to hypotension dehydration, poor oral intake, losartan and ibuprofen. He was treated with IV fluids and his kidney function improved. Creatinine upon discharge was 1.68. Nephrology consulted, recommended renal ultrasound that revealed bilateral renal cysts with nonobstructive bilateral intrarenal calculi. #5 hypertension: Started back on losartan. #6 peripheral vascular disease: Stable, continued on cilostazol and statins. On the day of discharge, his orthostatic vitals were positive, blood pressure dropped more than 40 points but he was asymptomatic. He does have a history of chronic orthostatic hypotension. Patient discharged home in a stable medical condition, ibuprofen discontinued, continued on losartan, statins, Plavix, gabapentin, cilostazol and omeprazole, order given to repeat BMP in 1 week, recommended from PCP in 1 week and follow-up with nephrology in 2 weeks. This note was generated with [employer] dictation software. It may contain incorrect words, spelling, and punctuation that were not noted in checking the note before signing. - Physical Exam General: Alert, Oriented x3, Cooperative, No apparent distress HEENT: Atraumatic, PERRLA, EOMI, Normocephalic Oral: Moist Mucosa, No Gingival or Mucosal Lesions/ Ulcerations Neck: Supple, No JVD, Negative Carotid Bruits, Trachea Midline, Thyroid Normal Size and Texture Lungs: Clear to auscultation, No wheeze, No rales, Diminished Cardiovascular: Regular rate, Regular Rhythm, Normal S1, Normal S2, PMI Normal Abdomen: Bowel Sounds Present, Soft, Non Tender, Non-Distended, No Hepato- splenomegaly Extremities: No clubbing, No cyanosis, No edema Skin: No rashes, No breakdown Lymphatic: No Cervical, Supraclavicular, or Inguinal Adenopathy Neurological: Cranial nerves II-XII grossly intact, Neuro grossly intact Psych/Mental Status: Normal Affect, Appropriate Vital Signs Temp Pulse Resp BP Pulse Ox 97.9 F 105 H 18 155/85 H 91 10/16/18 09:03 10/16/18 09:02 10/16/18 02:23 10/16/18 09:02 10/16/18 09:03 Oxygen Flow Rate (L/min) 2 Oxygen Delivery Method Room Air Weight: 190 lb 14.4 oz Body Mass Index (BMI) 27.1 Finger Stick Blood Glucose 134 Intake and Output for Last 24 Hours 10/14/18 10/15/18 10/16/18 23:59 23:59 23:59 Intake Total 2398 / 2398 1775 / 1775 1569 / 1569 Output Total 950 / 950 1150 / 1150 1775 / 1775 Balance 1448 / 1448 625 / 625 -206 / -206 Laboratory Tests Past 24 Hrs 10/15/18 10/16/18 10/16/18 20:15 00:43 05:50 WBC RBC Hgb Hct MCV MCH MCHC RDW RDW Differential Plt Count MPV Immature Gran % (Auto) Neut % (Auto) Lymph % (Auto) Randolph % (Auto) Eos % (Auto) Baso % (Auto) Absolute Neuts (auto) Absolute Lymphs (auto) Total Counted Sodium 143 144 Potassium 4.9 4.9 4.6 Chloride 114 H 113 H Carbon Dioxide 22.0 23.0 Anion Gap 7 BUN 32 H 28 H Creatinine 1.72 H 1.68 H Estim Creat Clear Calc 43.17 44.20 Est GFR (MDRD) Af Amer 51 L 52 L Est GFR (MDRD) Non-Af 42 L 43 L BUN/Creatinine Ratio 18.6 16.7 Glucose 92 91 Calcium 8.6 8.9 Phosphorus 2.6 Magnesium 1.8 Albumin 3.1 L 10/16/18 05:50 WBC 8.9 RBC 4.37 L Hgb 13.5 Hct 40.9 MCV 93.6 MCH 30.9 MCHC 33.0 RDW 13.1 RDW Differential 45.1 H Plt Count 253 MPV 8.7 Immature Gran % (Auto) 0.100 Neut % (Auto) 67.4 Lymph % (Auto) 19.6 Randolph % (Auto) 9.4 Eos % (Auto) 3.1 Baso % (Auto) 0.4 Absolute Neuts (auto) 6.0 Absolute Lymphs (auto) 1.75 Total Counted Not Reportable Sodium Potassium Chloride Carbon Dioxide Anion Gap BUN Creatinine Estim Creat Clear Calc Est GFR (MDRD) Af Amer Est GFR (MDRD) Non-Af BUN/Creatinine Ratio Glucose Calcium Phosphorus Magnesium Albumin Discharge Activity: Return to Normal Activity Weight Bearing Status: Weight bearing as tolerated Call your doctor if you observe: Fever of 101 or Higher, Shortness of breath, Dizziness, Fainting spells, Swelling in the ankles, Chest pain, Increased palpitations (irregular heartbeat), Uncontrolled pain Home Medications: Medications to take at Discharge Atorvastatin Calcium [Lipitor] 10 mg PO QHS 10/14/18 Cilostazol [Pletal] 100 mg PO BIDAC 10/14/18 Clopidogrel Bisulfate [Plavix] 75 mg PO DAILY 10/14/18 Gabapentin [Neurontin] 400 mg PO TIDCM 10/14/18 Losartan Potassium [Cozaar] 50 mg PO DAILY 10/14/18 Omeprazole [Prilosec] 20 mg PO BID 10/14/18 Other Amb Orders: Basic Metabolic Profile (BMP) Time Frame: 1 Week, Location: Laboratory Primary Care Physician: Karan Talbert MD [Primary Care Provider] - Please follow up with your Primary Care Physician in: 1 week. Please Follow Up With: Sheryl Gomez DO When: 2-3 weeks. Disposition: Home Minutes spent on discharge:: 32 Patient Condition:: Stable Medical Necessity - Tobacco Use Smoking Status: Former smoker Tobacco Use: Cigarettes Meaningful Use Info Meaningful Use Diagnoses (Choose all that apply): None applicable Code Visit Inpatient E&M: 13057 Disch Hosp
--- NOTE | 2018-10-19 14:57 | CASEMGMT ---
DAVEY AMARAL Discharge Follow-up Phone Call: CLAUDIA: Robbie Strata: 3 Call Date: 10/19/18 Discharge Date: 10/16/18 Time of Call: 1453 Duration: 5 MINUTES ? Admitting Diagnosis: DAWN on CKD stage 3 This RN MUNIR contacted pt via phone for discharge follow-up. Pt states he has been doing well since discharge. Pt states his has been taking his BP regularly. States it was 60 something over 30 something this morning but after sitting and drinking fluids it was up to 110/something. Pt denied any c/o dizziness or syncope. Discussed need to continue to drink fluids and to be careful when he stands from a seated position. PT also states one morning after discharge he had difficulty moving his left leg. States he has an appointment with Dr. Murray that his made for him in a couple of days and states he has an appointment with Dr. Gomez. Encourgaged pt to share these with Dr. Murray at his appointment. Discussed need for lab draw this week. Pt denied any further questions or concerns. Jaun Nagy RN
--- OUTSIDE RECORDS SUMMARY | 2018-11-30 20:46 | XMS RPT_ITS ---
:1950 Author Organization OHIP Support Name Relationship Address Phone ANNAMARIE BAZZI Unavailable [address] + [place] [address] R Unavailable Unavailable Unavailable BAZZI ANNAMARIE Unavailable [address] + [place] [address] R Unavailable Unavailable Unavailable BAZZI ANNAMARIE Unavailable [address] + [place] [address] R Unavailable Unavailable Unavailable BAZZI, ANNAMARIE Unavailable [address] + [place] [address] R Unavailable Unavailable Unavailable BAZZI, ANNAMARIE Unavailable [address] + [place] [address] R Unavailable Unavailable Unavailable BAZZI, ANNAMARIE Unavailable [address] + [place] [address] R Unavailable Unavailable Unavailable BAZZI, ANNAMARIE Unavailable [address] + [place] [address] R Unavailable Unavailable Unavailable BAZZI, ANNAMARIE Unavailable [address] + [place] [address] R Unavailable Unavailable Unavailable BAZZI, ANNAMARIE Unavailable [address] + [place] [address] R Unavailable Unavailable Unavailable BAZZI, ANNAMARIE Unavailable [address] + [place] [address] R Unavailable Unavailable Unavailable BAZZI, ANNAMARIE Unavailable [address] + [place] [address] R Unavailable Unavailable Unavailable BAZZI, ANNAMARIE Unavailable [address] + [place] [address] R Unavailable Unavailable Unavailable BAZZI, ANNAMARIE Unavailable [address] + [place] [address] R Unavailable Unavailable Unavailable BAZZI, ANNAMARIE Unavailable [address] + [place] [address] R Unavailable Unavailable Unavailable BAZZI, ANNAMARIE Unavailable [address] + [place] [address] R Unavailable Unavailable Unavailable R Unavailable Unavailable Unavailable SUREKHA BAZZI Unavailable [address] + [place] [address] BAZZI, ANNAMARIE Unavailable [address] + [place] [address] R Unavailable Unavailable Unavailable SUREKHA BAZZI Unavailable [address] + [place] [address] BAZZI, ANNAMARIE Unavailable [address] + [place] [address] R Unavailable Unavailable Unavailable LOC BAZZION Unavailable [address] + [place] [address] BAZZI, ANNAMARIE Unavailable [address] + [place] [address] R Unavailable Unavailable Unavailable SUREKHA BAZZI Unavailable [address] + [place] [address] BAZZI, ANNAMARIE Unavailable [address] + [place] [address] R Unavailable Unavailable Unavailable SUREKHA BAZZI Unavailable [address] + [place] [address] BAZZI, ANNAMARIE Unavailable [address] + [place] [address] R Unavailable Unavailable Unavailable Care Team Providers Name Role Phone YOLANDA STERLING [facility] Unavailable YOLANDA STERLING Referring Unavailable [facility] KARAN [facility] Care Unavailable [facility] Care Unavailable Candelario Robb Admitting Unavailable Ashelfah, Ghasem Attending Unavailable Sheryl Gomez Consulting Unavailable Jos Childs Consulting Unavailable Candelario Robb Admitting Unavailable Candelario Robb Attending Unavailable Karan Talbert Primary Care Unavailable Jos Childs Consulting Unavailable Sheryl Gomez Consulting Unavailable Ashelfah, Ghasem Consulting Unavailable Candelario Robb Admitting Unavailable Matiaselfah, Ghasem Attending Unavailable Karan Talbert Primary Care Unavailable Jos Childs Consulting Unavailable Jason, Sheryl Consulting Unavailable Ashelfah, Ghasem Consulting Unavailable Candelario Robb Admitting Unavailable Amadeo, Jos Attending Unavailable Talbert, Karan Primary Care Unavailable Jason, Sheryl Consulting Unavailable Amadeo, Jos Consulting Unavailable Ashelfah, Ghasem Consulting Unavailable Agyepong, Candelario Admitting Unavailable Ashelfah, Ghasem Attending Unavailable Talbert, Karan Primary Care Unavailable Jason, Sheryl Consulting Unavailable Amadeo, Jos Consulting Unavailable Ashelfah, Ghasem Consulting Unavailable Agyepong, Candelario Admitting Unavailable Amadeo, Jos Attending Unavailable Talbert, Karan Primary Care Unavailable Jason, Sheryl Consulting Unavailable Amadeo, Jos Consulting Unavailable Ashelfah, Ghasem Consulting Unavailable Leia, Denise S. Attending Unavailable Leia, Denise S. Referring Unavailable Talbert, Karan Primary Care Unavailable Leia, Denise S. Attending Unavailable Leia, Denise S. Referring Unavailable Talbert, Karan Primary Care Unavailable Leia, Denise S. Attending Unavailable Leia, Denise S. Referring Unavailable Talbert, Karan Primary Care Unavailable Leia, Denise S. Attending Unavailable Leia, Denise S. Referring Unavailable Talbert, Karan Primary Care Unavailable Talbert, Karan Attending Unavailable Talbert, Karan Primary Care Unavailable Birdie Matos Attending Unavailable Talbert, Karan Referring Unavailable Talbert, Karan Primary Care Unavailable Talbert, Karan Attending Unavailable Talbert, Karan Primary Care Unavailable Talbert, Karan Referring Unavailable Iban Olson Attending Unavailable Iban Olson Referring Unavailable Talbert, Karan Primary Care Unavailable Talbert, Karan Attending Unavailable Talbert, Karan Referring Unavailable Talbert, Karan Primary Care Unavailable Talbert, Karan Attending Unavailable Talbert, Karan Primary Care Unavailable Talbert, Karan Referring Unavailable Talbert, Karan Attending Unavailable Talbert, Karan Referring Unavailable Talbert, Karan Primary Care Unavailable Stephan Arreguin Attending Unavailable Agyepong, Candelario Referring Unavailable MoodispaKaran barragan Attending Unavailable Talbert, Karan Referring Unavailable Sheryl Gomez Attending Unavailable Nitish, Karan Primary Care Unavailable YOLANDA STERLING Referring Unavailable YOLANDA STERLING Referring Unavailable Iban Olson Attending Unavailable No Family Physician given Primary Care Unavailable PROBLEMS PROBLEMS DATE TYPE CONDITION / CODE ATTENDING STATUS SOURCE 11/19/2018 Unknown N18.3 - Chronic Sheryl Gomez Active [place] kidney disease, [facility] stage 3 (moderate) / Hospital N18.3(ICD-10) Repository 11/17/2018 Unknown R07.9 - Chest pain, [place], Active [place] unspecified / [facility] R07.9(ICD-10) Hospital Repository 11/04/2018 Unknown R55 - Syncope and Stephan Arreguin Active [place] collapse / [facility] R55(ICD-10) Hospital Repository 10/09/2018 Unknown R07.89 - Other chest Karan Talbert Active [place] pain / [facility] R07.89(ICD-10) Hospital Repository 06/15/2018 Unknown R10.9 - Unspecified TalbertKaran malik Active [place] abdominal pain / [facility] R10.9(ICD-10) Hospital Repository 06/15/2018 Unknown R53.83 - Other TalbertKaran malik Active [place] fatigue / [facility] R53.83(ICD-10) Hospital Repository 05/20/2018 Active Other intervertebral NA Active [place] disc degeneration, Clinic Other lumbar region / [place] M51.36(ICD-10) Repository 05/20/2018 Admitting Unknown / NA Active [facility](Unknown[facility] Repository 05/07/2018 Unknown I10 - Essential TalbertKaran malik Active [place] (primary) [facility] hypertension / Hospital I10(ICD-10) Repository 05/07/2018 Unknown Z01.818 - Encounter Karan Talbert Active [place] for other [facility] preprocedural Hospital examination / Repository Z01.818(ICD-10) 12/26/2017 Unknown S02.2XXA - Fracture Leia, Active [place] of nasal bones, Denise S. [facility] initial encounter Hospital for closed fracture Repository / S02.2XXA(ICD-10) PROCEDURES PROCEDURES No Procedure Records FoundRESULTS RESULTS RENAL PROFILE Collected: 11/19/2018 Status: F Source: [place] 12[facility] TYPE CODE TESTS RESULT OUT OF RANGE REFERENCE UNITS LAB L501.0100 74-106 mg/dL Normal GLU 100 Result Comment: Fasting Glucose result from 100 to 125 mg/dL suggests IMPAIRED HOMEOSTASIS per A.D.A. criteria. Please note revised GLUCOSE reference range effective 2017. LAB L501.1000 7-18 mg/dL High BUN 31 LAB L501.1100 0.70-1.30 mg/dL High CREAT,SERUM 1.68 Result Comment: The validity of the calculated GFR AND GFRAA in patients over 70 years has not been determined. Clinical correlation is essential. LAB L501.1110 >60 mL/min Low EST GFR 43 Result Comment: Non- GFR Calc LAB L501.1115 >60 mL/min Low EST GFR - AA 52 Result Comment: GFR Calc LAB L501.1300 10-20 RATIO Normal BUN/CRE 18.5 LAB L501.1800 3.2-5.0 g/dL Normal ALB 3.9 LAB L501.2200 8.5-10.1 mg/dL CA Normal 9.2 LAB L501.2300 2.5-4.9 mg/dL Low PHOS 2.3 LAB L501.5300 136-145 mmol/L NA Normal 139 LAB L501.5600 3.5-5.1 mmol/L K Normal 4.7 LAB L501.5900 98-107 mmol/L High CL 108 LAB L501.6100 21.0-32.0 mmol/L Normal CO2 23.0 Performed By: #### L500.3600 #### [facility] [address] [place], [address] STRESS REPORT Observed: 10/29/2018 Status: F Source: [place] 1:33 PM [facility] REPOSITORY [facility] Cardiovascular Services [address] [place] [address] MR#: [id number] Acct: [id number] Name: KARLOS BAZZI Rep #: [id number] : 1950 68 From: Karan Perez MD Primary Care: Karan Talbert MD Status: REG CLI Ordering Dr: Sex: M C Stress Test Report Date: 10/29/2018 Procedure: Pharmacologic stress nuclear imaging study Indications: Chest pain Consent: Per the patient Procedure: The patient underwent pharmacologic (Regadenoson) evaluation with a peak heart rate of 100 beats per minute (66 predicted maximal heart rate) and a peak blood pressure of 180/98 mmHg. The baseline ECG demonstrated normal sinus rhythm. The peak pharmacologic ECG demonstrated no obvious ECG changes. There were occasional PVCs pretest, during pharmacologic infusion, and recovery. There was no complaint of chest discomfort during pharmacologic infusion or recovery. The examination was discontinued secondary to completion of protocol. Impression: 1. Pharmacologic (Regadenoson) evaluation 2. Peak pharmacologic ECG with no obvious ECG changes. 3. There were occasional PVCs pretest, during pharmacologic infusion, and recovery. 4. Nuclear images pending Myocardial perfusion imaging study: Technique: The patient was injected with 14.4 millicuries of technetium 99m Cardiolite and subsequently rest SPECT Cardiolite nuclear imaging was obtained in the horizontal long, vertical long, and short axis views. The patient underwent pharmacologic (Regadenoson) evaluation with a peak heart rate of 100 beats per minute (66 % percent predicted maximal heart rate) and a peak blood pressure of 180/98 mmHg. The patient was injected with 44.1 millicuries of technetium 99m Cardiolite and subsequently stress SPECT Cardiolite nuclear imaging was obtained in the horizontal long, vertical long, and short axis views. A gated Cardiolite study at peak stress was obtained. Interpretation: Rest and stress SPECT Cardiolite nuclear imaging status post realignment, normalization, and attenuation correction demonstrate relative uniform tracer uptake in myocardial perfusion appearing within normal limits. There is end systolic thickening and brightening. The gated Cardiolite study demonstrates myocardial thickening and inward wall motion. The reported LVEF is 61%. Impression: 1. Rest and stress SPECT Cardiolite nuclear imaging demonstrate relative uniform tracer uptake and myocardial perfusion appearing within normal limits. 2. The gated Cardiolite study reports an LVEF of 61%. This note was generated with [employer] software. It may contain incorrect words, spelling, and punctuation that were not noted in checking the note before signing. 10/29/18 1333 <Electronically signed by Karan Perez MD> Date Karan Perez MD CC: Karan Talbert MD Date Dictated: 10/29/187 Date Transcribed: 10/29/181326 Coil Winder Repair: PM Signed DISCHARGE SUMMARY Observed: 10/16/2018 Status: F Source: [place] 11:55 AM [facility] REPOSITORY [facility] Medical Records Department [address] [place] [address] Discharge Summary 10/16/18 1148 MR#: [id number] Acct: [id number] Name: ROSE MARYKARLOS S Rep #: [id number] : 1950 68 From: Brenden Aguilar MD PCP: Karan Talbert MD Status: DIS IN Y Location: MS3 [id number] Discharge Date and Diagnosis Date of Admission: 10/14/18 Date of Discharge: 10/16/18 - Primary Discharge Diagnosis #1 acute kidney injury on top of stage III chronic kidney disease. #2 hyperkalemia. #3 syncopal episode due to orthostatic hypotension. - Secondary Discharge Diagnosis Chronic Problems (Last Reviewed 10/15/18 @ 05:39 by Candelario Robb MD) Near syncope (Chronic) Orthostatic hypotension (Chronic) HTN (hypertension) (Chronic) HLD (hyperlipidemia) (Chronic) Basal cell carcinoma (Chronic) PAD (peripheral artery disease) (Chronic) Kidney calculi (Chronic) TIA (transient ischemic attack) (Chronic) Hospital Course and Treatment Imaging Results: Clinical Impression(s) from Imaging Studies Chest X-Ray 10/14/18 15:25 IMPRESSION: Hyperinflation. The lungs are clear. Electronically Signed: Efrain Dominique MD at 15:43 EST Tel [phone], Service support , Renal Ultrasound 10/15/18 08:41 IMPRESSION: Bilateral renal cysts more prominent on the left side. Nonobstructive bilateral intrarenal calculi. Electronically Signed: Efrain Dominique MD at 14:18 EST Tel [phone], Service support , Dr. Gomez, nephrology. Dr. Childs, critical care. Operations: None Procedures: 2-D Echocardiogram, EKG Summary of Care Provided: Patient seen and examined on the day of discharge and appeared to be stable to be discharged home. He complained of headache but improved. He has been ambulating without dizziness or lightheadedness. His orthostatic vitals were positive but he does have chronic orthostatic hypotension and he was asymptomatic this morning upon standing. His other vital signs are stable. This is a 68 years old male patient presented to the ED because of syncopal episode, dizziness and he was found to have hypotension, acute kidney injury on top of stage III chronic kidney disease as well as hyperkalemia. #1 syncopal episode: Attributed to orthostatic hypotension which was triggered by dehydration and poor oral intake. Patient was initially treated in intensive care unit because of very low blood pressure, treated with IV fluids and he responded to fluids very well. EKG revealed normal sinus rhythm without evidence of acute ischemic changes or cardiac arrhythmias. Troponin was negative. #3 hyperkalemia: Attributed to acute kidney injury on top of stage III kidney disease and dehydration. Treated conservatively with IV fluids and Kayexalate. EKG revealed no acute changes related to hyperkalemia. Potassium was 5.6, with treatment, came down to 4.6 upon discharge. #4 acute kidney injury double stage III chronic kidney disease: Baseline creatinine has been around 1.4-1.8 mg/dL. Admission creatinine was 2.78. It is secondary to hypotension dehydration, poor oral intake, losartan and ibuprofen. He was treated with IV fluids and his kidney function improved. Creatinine upon discharge was 1.68. Nephrology consulted, recommended renal ultrasound that revealed bilateral renal cysts with nonobstructive bilateral intrarenal calculi. #5 hypertension: Started back on losartan. #6 peripheral vascular disease: Stable, continued on cilostazol and statins. On the day of discharge, his orthostatic vitals were positive, blood pressure dropped more than 40 points but he was asymptomatic. He does have a history of chronic orthostatic hypotension. Patient discharged home in a stable medical condition, ibuprofen discontinued, continued on losartan, statins, Plavix, gabapentin, cilostazol and omeprazole, order given to repeat BMP in 1 week, recommended from PCP in 1 week and follow-up with nephrology in 2 weeks. This note was generated with [employer] dictation software. It may contain incorrect words, spelling, and punctuation that were not noted in checking the note before signing. - Physical Exam General: Alert, Oriented x3, Cooperative, No apparent distress HEENT: Atraumatic, PERRLA, EOMI, Normocephalic Oral: Moist Mucosa, No Gingival or Mucosal Lesions/ Ulcerations Neck: Supple, No JVD, Negative Carotid Bruits, Trachea Midline, Thyroid Normal Size and Texture Lungs: Clear to auscultation, No wheeze, No rales, Diminished Cardiovascular: Regular rate, Regular Rhythm, Normal S1, Normal S2, PMI Normal Abdomen: Bowel Sounds Present, Soft, Non Tender, Non-Distended, No Hepato-splenomegaly Extremities: No clubbing, No cyanosis, No edema Skin: No rashes, No breakdown Lymphatic: No Cervical, Supraclavicular, or Inguinal Adenopathy Neurological: Cranial nerves II-XII grossly intact, Neuro grossly intact Psych/Mental Status: Normal Affect, Appropriate Vital Signs Temp Pulse Resp BP Pulse Ox 97.9 F 105 H 18 155/85 H 91 10/16/18 09:03 10/16/18 09:02 10/16/18 02:23 10/16/18 09:02 10/16/18 09:03 Oxygen Flow Rate (L/min) 2 Oxygen Delivery Method Room Air Weight: 190 lb 14.4 oz Body Mass Index (BMI) 27.1 Finger Stick Blood Glucose 134 Intake and Output for Last 24 Hours Intake Total 2398 / 2398 1775 / 1775 1569 / 1569 Output Total 950 / 950 1150 / 1150 1775 / 1775 Balance 1448 / 1448 625 / 625 -206 / -206 Laboratory Tests Past 24 Hrs WBC RBC Hgb Hct MCV MCH MCHC RDW RDW Differential Plt Count MPV Immature Gran % (Auto) WBC 8.9 RBC 4.37 L Hgb 13.5 Discharge Activity: Return to Normal Activity Weight Bearing Status: Weight bearing as tolerated Call your doctor if you observe: Fever of 101 or Higher, Shortness of breath, Dizziness, Fainting spells, Swelling in the ankles, Chest pain, Increased palpitations (irregular heartbeat), Uncontrolled pain Home Medications: Medications to take at Discharge Atorvastatin Calcium [Lipitor] 10 mg PO QHS 10/14/18 Cilostazol [Pletal] 100 mg PO BIDAC 10/14/18 Clopidogrel Bisulfate [Plavix] 75 mg PO DAILY 10/14/18 Gabapentin [Neurontin] 400 mg PO TIDCM 10/14/18 Losartan Potassium [Cozaar] 50 mg PO DAILY 10/14/18 Omeprazole [Prilosec] 20 mg PO BID 10/14/18 Other Amb Orders: Basic Metabolic Profile (BMP) Time Frame: 1 Week, Location: Laboratory Primary Care Physician: Karan Talbert MD [Primary Care Provider] - Please follow up with your Primary Care Physician in: 1 week. Please Follow Up With: Sheryl Gomez DO When: 2-3 weeks. Disposition: Home Minutes spent on discharge:: 32 Patient Condition:: Stable Medical Necessity - Tobacco Use Smoking Status: Former smoker Tobacco Use: Cigarettes Meaningful Use Info Meaningful Use Diagnoses (Choose all that apply): None applicable Code Visit Inpatient E AND M: 61478 Disch Hosp 10/16/18 1155 <Electronically signed by Brenden Aguilar MD> Date Brenden Aguilar MD Cosigner Signature (if applicable): Date CC: Sheryl Gomez DO; Brenden Aguilar; Karan Talbert MD Signed 12 LEAD ELECTROCARDIOGRAM Observed: 10/16/2018 Status: F Source: [place] 9:20 AM [facility] REPOSITORY [facility] Cardiovascular Services [address] [place] [id number] 12 Lead EKG 10/14/18 1534 MR#: [id number] Acct: [id number] Name: KARLOS BAZZI Rep #: [id number] : 1950 68 From: Maximiliano Kunz MD Attending Dr: Brenden Aguilar Status: ADM IN Ordering Dr: Yoan Vega MD Date: 10/14/18 Location: [facility] Sex: M C Admitted: 10/14/18 Test Reason : HYPOTENSION Blood Pressure : / mmHG Vent. Rate : 075 BPM Atrial Rate : 075 BPM P-R Int : 162 ms QRS Dur : 090 ms QT Int : 350 ms P-R-T Axes : 053 000 012 degrees QTc Int : 390 ms Sinus rhythm with Fusion complexes Inferior infarct , age undetermined Abnormal ECG Confirmed by MAXIMILIANO KUNZ MD ([id number]), video effects editor MICHELLE BAZZI ([id number]) on 10/16/2018 9:19:58 AM Referred By: Karan Talbert Confirmed By:MAXIMILIANO KUNZ MD 10/16/18 0920 Date Maximiliano Kunz MD CC: Brenden Aguilar; Karan Talbert MD; Yona Vega MD Signed DISCHARGE INSTRUCTION Observed: 10/16/2018 Status: F Source: [place] 9:16 AM [facility] REPOSITORY [facility] Medical Records Department [address] [place] [address] Instructions for Home/Discharge Instructions 10/16/18 0915 MR#: [id number] Acct: [id number] Name: KARLOS BAZZI Rep #: [id number] : 1950 68 From: Brenden Aguilar MD PCP: Karan Talbert MD Status: ADM IN - Discharge Diagnoses Current Active Problems: Current Active and Chronic Problems (Last Reviewed 10/15/18 @ 05:39 by Candelario Robb MD) Syncope (Acute) Hypotension (Acute) You will use the following diet at home:: Cardiac Your food should be the consistency of: Regular Discharge Activity: Return to Normal Activity Weight Bearing Status: Weight bearing as tolerated Call your doctor if you observe: Fever of 101 or Higher, Shortness of breath, Dizziness, Fainting spells, Swelling in the ankles, Chest pain, Increased palpitations (irregular heartbeat), Uncontrolled pain Allergies/Adverse Reactions: Allergies morphine Allergy (Verified 06/11/18 14:31) Other Medications to take at Discharge Atorvastatin Calcium [Lipitor] 10 mg PO QHS 10/14/18 Cilostazol [Pletal] 100 mg PO BIDAC 10/14/18 Clopidogrel Bisulfate [Plavix] 75 mg PO DAILY 10/14/18 Gabapentin [Neurontin] 400 mg PO TIDCM 10/14/18 Losartan Potassium [Cozaar] 50 mg PO DAILY 10/14/18 Omeprazole [Prilosec] 20 mg PO BID 10/14/18 Orders to be completed after discharge: Basic Metabolic Profile (BMP) Time Frame: 1 Week, Location: Laboratory Primary Care Physician: Karan Talbert MD [Primary Care Provider] - Please follow up with your Primary Care Physician in: 1 week. Test Results: Test results from this visit will be discussed in further detail at your follow-up appointment, if applicable. Please Follow Up With: Sheryl Gomez DO When: 2-3 weeks. 10/16/18 0916 <Electronically signed by Brenden Aguilra MD> Date Brenden Aguilar MD CC: Jos Childs MD; Sheryl Gomez DO; Karan Talbert MD CONSULTATION Observed: 10/16/2018 Status: F Source: [place] 6:02 AM [facility] REPOSITORY [facility] Medical Records Department [address] [place] [address] Consultation 10/15/18 0739 MR#: [id number] Acct: [id number] Name: KARLOS BAZZI Rep #: [id number] : 1950 68 From: Jos Childs MD PCP: Karan Talbert MD Status: ADM IN Location: [address] Problem List (1) Hypotension Status: Acute (2) Near syncope Status: Chronic (3) Orthostatic hypotension Status: Chronic (4) HTN (hypertension) Status: Chronic (5) HLD (hyperlipidemia) Status: Chronic Qualifiers: Hyperlipidemia type: pure hypercholesterolemia Qualified Code(s): E78.00 - Pure hypercholesterolemia, unspecified; E78.0 - Pure hypercholesterolemia (6) Basal cell carcinoma Status: Chronic (7) PAD (peripheral artery disease) Status: Chronic (8) Kidney calculi Status: Chronic Reason for Consult Date of Consultation: 10/15/18 Reason for Consultation: Hypotension History of Present Illness: The patient is a 68 year old M with past medical history listed below, who presented to [facility] on 10/14/2018 secondary to an episode of unresponsiveness. Patient is a relatively poor historian. Patient reports he was of his usual health until he had a revision of a recent femoropopliteal bypass on September 08 at [facility]. Patient reports that ever since that time he has had worsening blood pressure. Patient had been decreased on his beta-cesar because of decreased blood pressure. Patient had also had recent blood work showing worsening renal function. Patient reports he had a period of squeezing chest pain that lasted approximately 20 minutes. This occurred with light activity and improved with rest. Patient denied any constitutional symptoms such as fever, chills, nausea or vomiting. Patient is not had any dysuria and feels his lower extremity cramping has improved since the procedure. In the ER, patient had an EKG that was unremarkable compared to previous. Chem-7 showed an elevated creatinine at 2.78 (baseline 1.5). Patient was also noted to be hypotensive while in the emergency department. Patient was given a 30 cc/kg bolus and showed some improvement. Patient was then admitted to the intensive care unit for further monitoring. Since being in the intensive care unit, patient's blood pressure has continued to improve. Patient did not receive any pressor therapy. Patient feels subjectively much improved this morning, but blood pressures are noted to be 155/76. Patient has remained on Cozaar and reportedly has been taking ibuprofen secondary to sinus congestion. Patient does report some loose stools, but not diarrhea. Review of systems otherwise negative x10 systems. Past Medical History Past Medical History (Chronic Problems): Chronic Problems (Last Reviewed 10/15/18 @ 05:39 by Candelario Robb MD) Near syncope (Chronic) Orthostatic hypotension (Chronic) HTN (hypertension) (Chronic) HLD (hyperlipidemia) (Chronic) Basal cell carcinoma (Chronic) PAD (peripheral artery disease) (Chronic) Kidney calculi (Chronic) Medical History: Medical History (Last Reviewed 10/15/18 @ 05:39 by Candelario Robb MD) Near syncope (Chronic) R55 Orthostatic hypotension (Chronic) I95.1 HTN (hypertension) (Chronic) I10 HLD (hyperlipidemia) (Chronic) E78.5 PAD (peripheral artery disease) (Chronic) I73.9 Allergies morphine Allergy (Verified 06/11/18 14:31) Other Home Medications: Ambulatory Orders Medication Instructions Recorded Atorvastatin Calcium [Lipitor] 10 mg PO QHS 10/14/18 Cilostazol [Pletal] 100 mg PO BIDAC 10/14/18 Clopidogrel Bisulfate [Plavix] 75 mg PO DAILY 10/14/18 Surgical History: - - Hand surgery for trigger finger. Surgery on her wrist at x2. 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 Len was placed in left femur. Carotid endarterectomy. Bladder surgery for cancer. Smoking Status: Former smoker - He reports quitting smoking about a month ago. Tobacco Use: Cigarettes - *Family History Maternal Family History: Family History (Last Updated 10/15/18 @ 05:45 by Candelario Robb MD) Father Lung cancer Brother Throat cancer Brother Stomach cancer Mother Heart problem Review of Systems Comment: See HPI Patient Problems: Active and Suspected Problems (Last Reviewed 10/15/18 @ 05:39 by Candelario Robb MD) Syncope (Acute) Hypotension (Acute) Objective: Chest x-ray was personally reviewed and shows no acute infiltrate. - Physical Exam General: Alert, Oriented x3, Cooperative, No apparent distress, Well developed, Well nourished, - - No conversational dyspnea. Appears stated age. HEENT: Atraumatic, PERRLA, EOMI, Normocephalic, - - No scleral icterus or injection noted. Oral: Moist Mucosa, No Gingival or Mucosal Lesions/ Ulcerations Neck: Supple, No JVD, No Nodes, Trachea Midline Lungs: Clear to auscultation, Normal air movement, No rhonchi, No wheeze, No rales, - - Symmetric expansion. No dullness to percussion. Cardiovascular: Regular rate, Regular Rhythm, Normal S1, Normal S2, No murmurs, No rub noted, No Gallop Abdomen: Bowel Sounds Present, Soft, Non Tender, Non-Distended Extremities: No clubbing, No cyanosis, No edema, Capillary Refill Less than 3 Seconds Skin: No rashes, No breakdown Musculoskeletal: No Tenderness to Palpation of Joints or Extremities Lymphatic: No Cervical, Supraclavicular, or Inguinal Adenopathy Neurological: Cranial nerves II-XII grossly intact, Neuro grossly intact, Sensory exam intact to light touch and pain Psych/Mental Status: Alert and oriented to time, place, person, mood and affect Vital Signs Temp Pulse Resp BP Pulse Ox 36.7 C 80 15 139/80 H 96 10/15/18 04:00 10/15/18 07:00 10/15/18 07:00 10/15/18 07:00 10/15/18 07:00 Oxygen Flow Rate (L/min) 2 Oxygen Delivery Method Room Air Weight: 88.2 kg Body Mass Index (BMI) 27.1 Finger Stick Blood Glucose 134 Intake and Output for Last 24 Hours Intake Total 2398 / 2398 722 / 722 Output Total 950 / 950 850 / 850 Balance 1448 / 1448 -128 / -128 Laboratory Tests Past 24 Hrs WBC 8.9 RBC 4.93 Hgb 15.4 Hct 46.9 MCV 95.1 H WBC WBC WBC 6.7 Clinical Impression(s) from Imaging Studies Chest X-Ray 10/14/18 15:25 IMPRESSION: Hyperinflation. The lungs are clear. Electronically Signed: Efrain Dominique MD at 15:43 EST Tel [phone], Service support , Assessment/Plan Active and Suspected Problems (Last Reviewed 10/15/18 @ 05:39 by Candelario Robb MD) Syncope (Acute) Hypotension (Acute) RECOMMENDATIONS: 1. Continue gentle rehydration 2. Would not treat hyperkalemia on labs 3. Continue to hold Cozaar 4. Okay to leave the intensive care unit from my perspective IMPRESSIONS: 1. Hypotension Clinical suspicion for hypovolemic hypotension, possibly from dehydration. Patient appears to be responding to rehydration alone. Renal function is improved compared to previous. Patient is also off of Cozaar therapy. If blood pressure continues to rise, medications may need to be added. Would avoid Cozaar given patient's underlying renal function. Patient currently hemodynamically stable on room air. Okay to leave the intensive care unit from my perspective. 2. Acute on chronic kidney disease stage III Patient was significant elevation in creatinine. This may be secondary to volume ablation and ARB therapy. Hyperkalemia likely secondary to hemolysis on labs. Would not actively treat potassium level. Telemetry does not look to have changes. Avoid nephrotoxic medications. Continue to monitor renal panel on a daily basis. 3. Hypertension/hyperlipidemia/history of basal cell/peripheral artery disease Complicates care, management, recovery and prognosis. Home hypertensive medications have been held secondary to acute condition. Okay to continue with PAD medications from my perspective. Code Visit Inpatient E AND M: 68208 Init Hosp L2 10/16/18 0602 <Electronically signed by Jos Childs MD> Date Jos Childs MD Cosigner Signature (if applicable): Date CC: Jos Childs MD; Sheryl Gomez DO; Karan Talbert MD Signed CBC W/DIFF, AUTOMATED Collected: 10/16/2018 Status: F Source: KATHY 5:50 AM [facility] REPOSITORY TYPE CODE TESTS RESULT OUT OF RANGE REFERENCE UNITS LAB L100.1000 4.4-11.0 K/mm3 Normal WBC 8.9 LAB L100.1200 4.6-6.2 M/mm3 Low RBC 4.37 LAB L100.1300 13.0-16.5 g/dl Normal HGB 13.5 LAB L100.1400 40-54 % Normal HCT 40.9 LAB L100.1500 80-94 fL Normal MCV 93.6 LAB L100.1600 27.0-32.0 pg Normal MCH 30.9 LAB L100.1700 32-36 g/gl Normal MCHC 33.0 LAB L100.1810 11.6-14.6 % Normal RDW CV 13.1 LAB L100.1820 35.1-43.9 fl High RDW SD 45.1 LAB L100.1900 150-450 K/mm3 Normal PLT 253 LAB L100.2000 6.2-12.0 fl Normal MPV 8.7 LAB L100.2100 47-70 % Normal NEUT% 67.4 LAB L100.2200 19-41 % Normal LY% 19.6 LAB L100.2300 0-10 % Normal MONO% 9.4 LAB L100.2400 0-5 % Normal EO% 3.1 LAB L100.2500 0-1 % Normal BASO% 0.4 LAB L100.2550 0.0-0.9 % Normal IM GRAN % 0.100 Result Comment: IG% - Immature Granulocytes (promyelocytes, myelocytes and metamyelocytes) > 1% indicates that a LEFT SHIFT is Present. LAB L100.2620 2.0-7.7 X10 3/uL Normal Absolute Neut 6.0 LAB L100.2720 0.83-4.51 X10 3/ul Normal Absolute Lymph 1.75 Performed By: #### L100.0100 #### [facility] [address] [place], [address] RENAL PROFILE Collected: 10/16/2018 Status: F Source: KATHY 5:50 AM [facility] REPOSITORY TYPE CODE TESTS RESULT OUT OF RANGE REFERENCE UNITS LAB L501.0100 74-106 mg/dL Normal GLU 91 Result Comment: Please note revised GLUCOSE reference range effective 2017. LAB L501.1000 7-18 mg/dL High BUN 28 LAB L501.1100 0.70-1.30 mg/dL High CREAT,SERUM 1.68 Result Comment: The validity of the calculated GFR AND GFRAA in patients over 70 years has not been determined. Clinical correlation is essential. LAB L501.1110 >60 mL/min Low EST GFR 43 Result Comment: Non- GFR Calc LAB L501.1115 >60 mL/min Low EST GFR - AA 52 Result Comment: GFR Calc LAB L501.1255 ml/min Normal Estimated CRCL 44.20 LAB L501.1300 10-20 RATIO Normal BUN/CRE 16.7 LAB L501.1800 3.2-5. g/dL Low 0 ALB 3.1 LAB L501.2200 8.5-10 mg/dL Normal .1 CA 8.9 LAB L501.2300 2.5-4. mg/dL Normal 9 PHOS 2.6 LAB L501.5300 136-14 mmol/L Normal 5 NA 144 LAB L501.5600 3.5-5. mmol/L Normal 1 K 4.6 LAB L501.5900 98-107 mmol/L High CL 113 LAB L501.6100 21.0-3 mmol/L Normal 2.0 CO2 23.0 Performed By: #### L500.3600 #### [facility] [address] [place], [address] BASIC METABOLIC Collected: 10/16/2018 Status: F Source: KATHY PROFILE ([facility]) 12:43 AM [facility] REPOSITORY TYPE CODE TESTS RESULT OUT OF RANGE REFERENCE UNITS LAB L501.0100 74-106 mg/dL Normal GLU 92 Result Comment: Please note revised GLUCOSE reference range effective 2017. LAB L501.1000 7-18 mg/dL High BUN 32 LAB L501.1100 0.70-1.30 mg/dL High CREAT,SERUM 1.72 Result Comment: The validity of the calculated GFR AND GFRAA in patients over 70 years has not been determined. Clinical correlation is essential. LAB L501.1110 >60 mL/min Low EST GFR 42 Result Comment: Non- GFR Calc LAB L501.1115 >60 mL/min Low EST GFR - AA 51 Result Comment: GFR Calc LAB L501.1255 ml/min Normal Estimated CRCL 43.17 LAB L501.1300 10-20 RATIO Normal BUN/CRE 18.6 LAB L501.2200 8.5-10 mg/dL Normal .1 CA 8.6 LAB L501.5300 136-14 mmol/L Normal 5 NA 143 LAB L501.5600 3.5-5. mmol/L Normal 1 K 4.9 LAB L501.5900 98-107 mmol/L High CL 114 LAB L501.6100 21.0-3 mmol/L Normal 2.0 CO2 22.0 LAB L501.6200 5-15 Normal GAP 7 Performed By: #### L500.2500, L501.5200 #### [facility] [address] [facility] [place], [address] MAGNESIUM Collected: 10/16/2018 Status: F Source: KATHY 12:43 AM [facility] REPOSITORY TYPE CODE TESTS RESULT OUT OF RANGE REFERENCE UNITS LAB L501.5200 1.6-2.6 mg/dL Normal MG 1.8 Performed By: #### L500.2500, L501.5200 #### [facility] [address] [facility] [place], [address] POTASSIUM Collected: 10/15/2018 Status: F Source: KATHY 8:15 PM [facility] REPOSITORY TYPE CODE TESTS RESULT OUT OF RANGE REFERENCE UNITS LAB L501.5600 3.5-5.1 mmol/L Normal K 4.9 Performed By: #### L501.5600 #### [facility] [address] [facility] [place], [address] CONSULTATION Observed: 10/15/2018 Status: F Source: [place] 5:19 PM [facility] REPOSITORY [facility] Medical Records Department [address] [place] [address] Consultation 10/15/18 0831 MR#: [id number] Acct: [id number] Name: KARLOS BAZZI Rep #: [id number] : 1950 68 From: Sheryl Gomez DO PCP: Karan Talbert MD Status: ADM IN Y Location: [facility] SH365-9 Consultation - Renal 10/15/18 PCP/ Referring MD: Requesting physician: [] Primary care physician: Karan Talbert Reason for Consultation:: DAWN on ckd stage 3 - History of Present Illness History of Present Illness: The patient is a 68 year old M with a significant history of hypertension, bladder cancer status post surgery 20 years ago at [facility], PAD status post femoral bypass surgery and stent 15 yrs ago at [facility] then recently on 09/[address] Olson at [facility]. He continues to complain of cramps in his legs. He presents with syncopal episode when he went in for right shoulder xray for complaints of shoulder pain after seen by ortho. He denied nausea, vomiting, lightheadedness. He presented with a low BP that was managed with iv flud resuscitation. He is on Cozaar at home discontinued on admit. His creatinine was 2.7 with potassium of 5.8 on 10/14/18. Creatinine improved to 2.2 with hydration and discontinuation of his Cozaar. He takes ibuprofen at home for nasal drainage. He has a history of tobacco use, quit 2 months ago, PAD. He has CKD stage 3 with baseline creatinine of 1.5 in June 2018. He is not aware of kidney disease. He has not followed up with a urologist for years. He denies hematuria, dysuria. Denied fever, chills, weight loss. H - Allergies Allergies: Allergies morphine Allergy (Verified 06/11/18 14:31) Other - Current Medications Current Medications: Current Medications Atorvastatin Calcium (Lipitor) 10 mg PO QHS [facility] Last Admin: 10/14/18 23:07 Dose: 10 mg Cilostazol (Pletal) 100 mg PO BIDAC [facility] Clopidogrel Bisulfate (Plavix) 75 mg PO DAILY@2200 [facility] Last Admin: 10/14/18 23:08 Dose: 75 mg Gabapentin (Neurontin) 400 mg PO X1 ONE Stop: 10/15/18 19:51 Last Admin: 10/14/18 20:04 Dose: 400 mg Gabapentin (Neurontin) 100 mg PO TIDCM [facility] Heparin Sodium (Porcine) (Heparin Na) 5,000 unit SC Q8 [facility] Last Admin: 10/15/18 06:55 Dose: 5,000 unit Sodium Chloride () 1,000 mls @ 100 mls/hr IV .Q10H YELENA Stop: 10/15/18 12:57 Last Admin: 10/14/18 22:10 Dose: 100 mls/hr Sodium Chloride () 250 mls @ 15 mls/hr IV .[id number] PRN PRN Reason: SALINE FLUSH Lactated Ringer's () 1,000 mls @ 100 mls/hr IV .Q10H [facility] Last Admin: 10/15/18 06:55 Dose: 100 mls/hr Magnesium Hydroxide (Milk Of Magnesia) 30 ml PO DAILY PRN PRN PRN Reason: Constipation Ondansetron HCl (Zofran) 4 mg IV Q8H PRN PRN PRN Reason: NAUSEA Pantoprazole Sodium (Protonix) 20 mg PO BID [facility] Last Admin: 10/14/18 23:08 Dose: 20 mg Sodium Chloride () 5 - 15 ml IV UD PRN PRN Reason: SALINE FLUSH Sodium Polystyrene Sulfonate (Kayexalate) 15 gm PO X1 ONE Stop: 10/15/18 08:29 - Past Medical History Past Medical History (Chronic Problems): Chronic Problems (Last Reviewed 10/15/18 @ 05:39 by Candelario Robb MD) Near syncope (Chronic) Orthostatic hypotension (Chronic) HTN (hypertension) (Chronic) HLD (hyperlipidemia) (Chronic) Basal cell carcinoma (Chronic) PAD (peripheral artery disease) (Chronic) Kidney calculi (Chronic) TIA (transient ischemic attack) (Chronic) - Past Surgical History Surgical History: - - Hand surgery for trigger finger. Surgery on her wrist at x2. 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 Len was placed in left femur. Carotid endarterectomy. Bladder surgery for cancer. - Social History Marital Status: Smoking Status: Former smoker - He reports quitting smoking about a month ago. - Family History Maternal Family History: Family History (Last Updated 10/15/18 @ 05:45 by Candelario Robb MD) Father Lung cancer Brother Throat cancer Brother Stomach cancer Mother Heart problem Review of Systems Constitutional: Denies: Anorexia, Chills, Fever, Weakness, Fatigue Eyes: Denies: Blurred vision, Vision Change HEENT: Reports: Post Nasal Drip, Sinus Congestion. Denies: Head Aches Cardiovascular: Reports: Syncope. Denies: Chest Pain, Edema, Orthopnea, Palpitations Respiratory: Denies: Cough, Shortness of Breath Gastrointestinal: Denies: Abdominal Pain, Constipation, Diarrhea, Nausea, Vomiting Genitourinary: Reports: - - bladder cancer. Denies: Dysuria, Frequency, Hematuria Skin: Denies: Pruritis, Rash Neurological: Reports: - - leg cramps. Denies: Balance problems, Double vision, Confusion, Seizures Psychiatric: Denies: Anxiety, Depression Hematologic/ Lymphatic: Denies: Hx of blood clot Patient Problems: Active and Suspected Problems (Last Reviewed 10/15/18 @ 05:39 by Candelario Robb MD) Syncope (Acute) Hypotension (Acute) - Physical Exam General: Alert, Oriented x3, Cooperative, No apparent distress HEENT: PERRLA, EOMI Oral: Dry Mucosa Neck: Supple Lungs: Diminished Abdomen: Bowel Sounds Present, Soft, Non Tender, Non-Distended Extremities: No edema, Diminished Peripheral Pulses Skin: No rashes Musculoskeletal: No Muscle Wasting Lymphatic: No Cervical, Supraclavicular, or Inguinal Adenopathy Neurological: Cranial nerves II-XII grossly intact Psych/Mental Status: Normal Affect, Appropriate, Alert and oriented to time, place, person, mood and affect Vital Signs Temp Pulse Resp BP Pulse Ox 98.1 F 85 22 H 139/80 H 85 10/15/18 08:00 10/15/18 08:00 10/15/18 08:00 10/15/18 08:00 10/15/18 08:00 Oxygen Flow Rate (L/min) 2 Oxygen Delivery Method Room Air Weight: 88.2 kg Body Mass Index (BMI) 27.1 Finger Stick Blood Glucose 134 Intake and Output for Last 24 Hours Intake Total 2398 / 2398 722 / 722 Output Total 950 / 950 850 / 850 Balance 1448 / 1448 -128 / -128 Laboratory Tests Past 24 Hrs WBC 8.9 RBC 4.93 Hgb 15.4 Hct 46.9 MCV 95.1 H WBC WBC WBC 6.7 Clinical Impression(s) from Imaging Studies Renal Ultrasound 10/15/18 08:41 IMPRESSION: Bilateral renal cysts more prominent on the left side. Nonobstructive bilateral intrarenal calculi. Electronically Signed: Efrain Dominique MD at 14:18 EST Tel [phone], Service support , Assessment/Plan All Active Problems (Last Reviewed 10/15/18 @ 05:39 by Candelario Robb MD) Syncope (Acute) Hypotension (Acute) 1. DAWN on CKD stage 3 likely due to prerenal event from hypotension, dehydration, ARB, NSAID use. Baseline creatinine 1.5 in June 2018 increased to 2.7 on admit down to 2.2 today after iv hydration. Agree with holding ARB. Avoid NSAIDs. Renal US from today showed bilateral renal cysts with nonobstructing stones. 2. Syncope due to Hypotension, dehydration. 3. Hyperkalemia follow 2g K diet, kayexalate. Stop NSAID use. 4. Bladder ca s/p surgery. Recommend f/u with 5. PAD s/p bypass with claudication. Vascular following 6. COPD 7. Tobacco use 8. Hyperlipidemia on statin 10/15/18 1719 <Electronically signed by Sheryl Gomez DO> Date Sheryl Gomez DO Cosigner Signature (if applicable): Date CC: Jos Childs MD; Sheryl Gomez DO; Karan Talbert MD Signed ECHOCARDIOGRAM COMPLETE Observed: 10/15/2018 Status: F Source: KATHY 1:15 PM [facility] REPOSITORY [facility] Cardiovascular Services [address] [place] [address] Echo Complete 10/15/1814 MR#: [id number] Acct: [id number] Name: KARLOS BAZZI Rep #: [id number] : 1950 68 From: Stephan Arreguin MD Attending Dr: Brenden Aguilar Status: ADM IN Ordering Dr: Candelario Robb MD Date: 10/14/18 Location: MS3 Sex: M C Admitted: 10/14/18 Reason For Study: Syncope Procedure This was a 2D Doppler, Color Flow transthoracic echocardiogram. Exam performed portable in patient room. Left Ventricle Normal size and thickness. The estimated ejection fraction is 65 %. Stage 1 diastolic dysfunction. No regional wall motion abnormalities noted. Right Ventricle Normal size and thickness. Normal systolic function. Atria Normal left atrium. Normal right atrium. Normal atrial septum. Mitral Valve The mitral valve is structurally normal. No prolapse or stenosis seen. Tricuspid Valve Normal tricuspid valve. Unable to estimate RV systolic pressure due to inadequate jet, pulmonary artery pressure probably normal. Aortic Valve Trisinus/trileaflet aortic valve. Pulmonic Valve Normal pulmonic valve. Trivial pulmonic valve insufficiency. Great Vessels Normal aortic root. Normal arch. Normal inferior vena cava. Inferior vena cava collapse with sniff. Pericardium/Pleural No pericardial effusion. MMode/2D Measurements AND Calculations LVIDd: 3.6 cm IVSd: 1.1 cm Ao root diam: 3.2 cm LVIDs: 2.2 cm LVPWd: 0.92 cm RVDd: 3.3 cm FS: 39.1 % LAV(MOD-bp): 38.4 ml EDV(MOD-sp4): 73.2 ml EDV(MOD-sp2): 77.4 ml LAV(MOD-bp) Indexed: 18.5 ml/m2 ESV(MOD-sp4): 34.6 ml EF(MOD-sp2): 70.7 % LAV(MOD-sp2): 35.9 ml EF(MOD-sp4): 52.8 % LAV(MOD-sp4): 40.2 ml SV(MOD-sp4): 38.6 ml SV(MOD-sp2): 54.7 ml LA A4 area: 16.3 cm2 LA dimension(2D): 3.0 cm RA A4 area: 13.6 cm2 Doppler Measurements AND Calculations MV E max wang: 65.2 cm/sec Lat Peak E' Wang: 10.5 cm/sec Med Peak E' Wang: 7.6 cm/sec MV A max wang: 100.8 cm/sec E/E' lat: 6.2 E/E' med: 8.6 MV E/A: 0.65 Ao V2 max: 184.7 cm/sec LV V1 max: 130.3 cm/sec PA V2 max: 132.7 cm/sec Ao max P.6 mmHg LV V1 max P.8 mmHg Interpretation Summary The estimated ejection fraction is 65 %. Stage 1 diastolic dysfunction. Unable to estimate RV systolic pressure due to inadequate jet, pulmonary artery pressure probably normal. Trivial pulmonic valve insufficiency. Compred to echo report date08/10/2015, no appreciable changes noted. Ordering Physician: Candelario Robb Referring Physician: Karan Talbert Performed By: Shakira Talley RDCS 10/15/18 1315 Date Stephan Arreguin MD CC: Brenden Aguilar; Candelario Robb MD; Karan Talbert MD Date Dictated: 10/15/1814 Date Transcribed: 10/15/181314 Coil Winder Repair: Signed KIDNEY AND BLADDER Observed: 10/15/2018 Status: F Source: [place] 8:41 AM [facility] REPOSITORY [facility] Imaging Services [address] [place] [address] Kidney and Bladder MR#: [id number] Acct: [id number] Name: KARLOS BAZZI Rep #: [id number] : 1950 M 68 From: Efrain Dominique MD PCP: Karan Talbert MD Status: ADM IN Study: Kidney and Bladder Date of Exam: 10/15/18 Exam# [id number] Ordering Dr: Sheryl Gomez DO STUDY: RENAL ULTRASOUND - COMPLETE REASON FOR EXAM: Male, 68 years old. Acute renal failure. TECHNIQUE: Ultrasound evaluation of the kidneys was performed with real-time and static newman-scale imaging. COMPARISON: None. FINDINGS: RIGHT KIDNEY: Normal location of the right kidney, which is normal in size. The right kidney measures 10.7 cm x 5.1 cm x 5.3 cm. There is a normal cortex of the right kidney. The renal cortex measures 1.4 cm. There is an 8 mm x 9 mm x 8 mm cyst. This arises from the lateral aspect of the kidney. Findings suggestive of a 2 nonobstructive intrarenal calculi in the larger measuring 1.1 cm. There is no right hydronephrosis. DISTAL RIGHT URETER: There is non-visualization of the distal right ureter. There is no demonstrated right ureterovesical junction calculus. There is no demonstrated right ureteral jet. LEFT KIDNEY: Normal location of the left kidney, which is normal in size. The left kidney measures 10.5 cm x 5.5 cm x 5.5 cm. There is a normal cortex of the left kidney. The renal cortex measures 1.2 cm. There is a 5.8 cm x 7.7 cm x 5.6 cm septated left renal cyst. 2 small intrarenal calculi are seen. The larger measures 8 mm x 6 mm. There is no left hydronephrosis. DISTAL LEFT URETER: There is non-visualization of the distal left ureter. There is no demonstrated left ureterovesical junction calculus. There is no demonstrated left ureteral jet. BLADDER: The distended urinary bladder has a volume of 100 ml. There is a normal wall thickness of the distended urinary bladder. There is no demonstrated mass within the urinary bladder. There are no demonstrated bladder calculi. US/Kidney and Bladder IMPRESSION: Bilateral renal cysts more prominent on the left side. Nonobstructive bilateral intrarenal calculi. Electronically Signed: Efrain Dominique MD at 14:18 EST Tel [phone], Service support , CC: Sheryl Gomez DO; Karan Talbert MD Coil Winder Repair: Signed HISTORY AND PHYSICAL Observed: 10/15/2018 Status: F Source: [facility] EXAM 7:38 AM [facility] REPOSITORY [facility] Medical Records Department [address] [place] [address] History and Physical 10/14/182007 MR#: [id number] Acct: [id number] Name: KARLOS BAZZI Rep #: [id number] : 1950 68 From: Candelario Robb MD PCP: Karan Talbert MD Status: ADM IN Y Location: ICU ICU01-1 Problem List (1) Syncope Status: Acute (2) Hypotension Status: Acute History of Present Illness Date of Admission: 10/14/18 Chief Complaint: transient loss of consciousness The patient is a 68 year old M with a significant history of hypertension; bladder cancer status post surgery;PAD status post femoral bypass surgery and stent; who presented because of a syncopal episode while getting ready to take an x-ray of his right shoulder. Patient stated that while he stood up and was getting ready to get an x-ray he lost consciousness and was held up by people. He denies any nausea, palpitations; seizures or feeling different before or after the syncope. He reports lightheadedness. His symptoms on the same day of admission. However he reported that for the last 3 months he has always had lightheadedness. And his blood pressure has been low. He reported one time at the PCPs office his blood pressure was so low to be read. His home hydrochlorothiazide was subsequently discontinued. However he continued to take his Cozaar. Last time he took Cozaar was on the same day of admission. Also patient has had acute kidney injury and was referred to a urologist. Patient reports taking ibuprofen every day because of rhinorrhea. Patient reported that in the past he has tried Flonase without any real relief from his rhinorrhea. He developed rhinorrhea after falling and injuring his nose. Subsequently he had nasal surgery. He reports injury to a nerve that runs through his nose. Patient reports loose stools that started about a week ago. At emergency department was found to have elevated potassium of 5.8. Because her blood pressure was very low at emergency department he received a 30 mls per kilograms of IV fluids. The case was discussed with textile machine operator who agreed the patient should be admitted at intensive care unit and be continued on IV fluids. Past Medical History Past Medical History (Chronic Problems): Chronic Problems (Last Reviewed 10/15/18 @ 05:39 by Candelario Robb MD) Near syncope (Chronic) Orthostatic hypotension (Chronic) HTN (hypertension) (Chronic) HLD (hyperlipidemia) (Chronic) Basal cell carcinoma (Chronic) PAD (peripheral artery disease) (Chronic) Kidney calculi (Chronic) Medical History: Medical History (Last Reviewed 10/15/18 @ 05:39 by Candelario Robb MD) Near syncope (Chronic) R55 Orthostatic hypotension (Chronic) I95.1 HTN (hypertension) (Chronic) I10 HLD (hyperlipidemia) (Chronic) E78.5 PAD (peripheral artery disease) (Chronic) I73.9 Allergies morphine Allergy (Verified 06/11/18 14:31) Other Home Medications: Ambulatory Orders Medication Instructions Recorded Atorvastatin Calcium [Lipitor] 10 mg PO QHS 10/14/18 Cilostazol [Pletal] 100 mg PO BIDAC 10/14/18 Clopidogrel Bisulfate [Plavix] 75 mg PO DAILY 10/14/18 Surgical History: - - Hand surgery for trigger finger. Surgery on her wrist at x2. 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 Len was placed in left femur. Carotid endarterectomy. Bladder surgery for cancer. Smoking Status: Former smoker - He reports quitting smoking about a month ago. Tobacco Use: Cigarettes - *Family History Maternal Family History: Family History (Last Updated 10/15/18 @ 05:45 by Candelario Robb MD) Father Lung cancer Brother Throat cancer Brother Stomach cancer Mother Heart problem Review of Systems Constitutional: Reports: Fatigue. Denies: Chills, Fever, Weight Change HEENT: Denies: Head Aches, Sinus Congestion, Sinus Drainage Cardiovascular: Reports: Light Headedness. Denies: Chest Pain, Palpitations Respiratory: Denies: Cough, Shortness of breath at rest, Sputum production Gastrointestinal: Denies: Abdominal Pain, Nausea, Vomiting Genitourinary: Denies: Dysuria Musculoskeletal: Reports: Leg Pain. Denies: Joint Pain - Hips and knee pain, Joint Tenderness Skin: Denies: Rash, Wounds Neurological: Denies: Numbness, Tingling, Focal weakness Psychiatric: Denies: Anxiety, Depression, Homicidal Ideations, Suicidal Ideations Hematologic/ Lymphatic: Denies: Easy Bruising, Easy Bleeding VTE Information - Inpt Only VTE Present on Admission: No VTE Mechan Device Prophylaxis: None VTE Pharm Prophylaxis ordered?: Yes Patient Problems: Active and Suspected Problems (Last Reviewed 10/15/18 @ 05:39 by Candelario Robb MD) Syncope (Acute) Hypotension (Acute) - Physical Exam General: Alert, Oriented x3, Cooperative HEENT: Atraumatic, PERRLA, EOMI, Normocephalic Neck: Supple, No JVD, Negative Carotid Bruits Lungs: Clear to auscultation, Normal air movement Cardiovascular: Regular rate, No murmurs Abdomen: Bowel Sounds Present, Soft, Non Tender Extremities: No edema, Capillary Refill Less than 3 Seconds Skin: No rashes, No breakdown Musculoskeletal: No Tenderness to Palpation of Joints or Extremities Neurological: Cranial nerves II-XII grossly intact Psych/Mental Status: Normal Affect, Appropriate Vital Signs Temp Pulse Resp BP Pulse Ox 97.6 F L 99 17 99/59 L 93 10/14/18 14:28 10/14/18 20:05 10/14/18 20:05 10/14/18 20:05 10/14/18 20:05 Oxygen Flow Rate (L/min) 2 Oxygen Delivery Method Nasal Cannula Weight: 83.915 kg Body Mass Index (BMI) 25.7 Finger Stick Blood Glucose 134 Intake and Output for Last 24 Hours Output Total 500 / 500 Balance -500 / -500 Laboratory Tests Past 24 Hrs WBC 8.9 RBC 4.93 Assessment/Plan All Active Problems (Last Reviewed 10/15/18 @ 05:39 by Candelario Robb MD) Syncope (Acute) Hypotension (Acute) TIA (transient ischemic attack) (Acute) The patient is a 68 year old M with a significant history of hypertension; bladder cancer status post surgery;PAD status post femoral bypass surgery and stent; who presented because of a syncopal episode while getting ready to take an x-ray for his right shoulder and found to have severe hypotension at emergency department requiring IV fluid bolus. Syncopal episode Likely due to hypotension. Because of severe hypotension requiring multiple liters of fluid his blood pressure still marginal patient was admitted to the ICU. Patient receive normal saline IV fluids at emergency department. We will continue patient on normal saline 100ML per hour for 15 hours. We will hold home Cozaar. Will order echocardiogram. Enteritis Patient reported diarrhea that started about a week ago. He reported that on the day of admission he even had some loose stools. However while at the ICU patient reported that his diarrhea was after he had eaten beans; and it occurred a week ago.. Clinical monitoring at this time. DAWN on CKD stages III On admission his creatinine was 2.78. On 06/15/2018 his creatinine was 1.57. IV hydration as above We will consult hand cigar maker. Urinary studies ordered. At emergency department he received IV fluids and was able to void. His postvoid residual was unremarkable. Avoid nephrotoxics Trend BMP Hyperkalemia On admission his potassium was 5.8. Emergency department doctor reported that the blood was partially hemolyzed. Repeat potassium level. His elevated potassium could be due to kidney injury causing poor excretion. IV hydration. Trend BMP. Prophylaxis Subcutaneous heparin. Code Visit Inpatient Ethel AND M: [id number] Init Hosp L3 10/15/18 0738 <Electronically signed by Candelario Robb MD> Date Candelario Robb MD Cosigner Signature: Date (if applicable) CC: Candelario Robb MD; Karan Talbert MD Signed CBC-COMPLETE BLOOD CNT Collected: 10/15/2018 Status: F Source: KATHY NO DIFF 4:15 AM [facility] REPOSITORY TYPE CODE TESTS RESULT OUT OF RANGE REFERENCE UNITS LAB L100.1000 4.4-11.0 K/mm3 Normal WBC 6.7 LAB L100.1200 4.6-6.2 M/mm3 Low RBC 4.15 LAB L100.1300 13.0-16.5 g/dl Normal HGB 13.2 LAB L100.1400 40-54 % Low HCT 39.4 LAB L100.1500 80-94 fL High MCV 94.9 LAB L100.1600 27.0-32.0 pg Normal MCH 31.8 LAB L100.1700 32-36 g/gl Normal MCHC 33.5 LAB L100.1810 11.6-14.6 % Normal RDW CV 13.2 LAB L100.1820 35.1-43.9 fl High RDW SD 44.4 LAB L100.1900 150-450 K/mm3 Normal PLT 269 LAB L100.2000 6.2-12.0 fl Normal MPV 9.2 Performed By: #### L100.0500 #### [facility] [address] [place], [place], [address] BASIC METABOLIC Collected: 10/15/2018 Status: F Source: PRIMROSE PROFILE (BMP) 4:15 AM [facility] REPOSITORY TYPE CODE TESTS RESULT OUT OF RANGE REFERENCE UNITS LAB L501.0100 74-106 mg/dL Normal GLU 80 Result Comment: Please note revised GLUCOSE reference range effective 2017. LAB L501.1000 7-18 mg/dL High BUN 44 LAB L501.1100 0.70-1.30 mg/dL High CREAT,SERUM 2.12 Result Comment: The validity of the calculated GFR AND GFRAA in patients over 70 years has not been determined. Clinical correlation is essential. LAB L501.1110 >60 mL/min Low EST GFR 33 Result Comment: Non- GFR Calc LAB L501.1115 >60 mL/min Low EST GFR - AA 40 Result Comment: GFR Calc LAB L501.1255 ml/min Normal Estimated CRCL 35.03 LAB L501.1300 10-20 RATIO High BUN/CRE 20.8 LAB L501.2200 8.5-10 mg/dL Low .1 CA 8.1 LAB L501.5300 136-14 mmol/L Normal 5 NA 145 LAB L501.5600 3.5-5. mmol/L High 1 K 5.6 Result Comment: Moderate Hemolysis, Result may be falsely increased. LAB L501.5900 98-107 mmol/L High CL 118 LAB L501.6100 21.0-32.0 mmol/L Low CO2 20.0 LAB L501.6200 5-15 Normal 7 GAP Performed By: #### L500.2500 #### [facility] [address] [facility] [place], [address] EMERGENCY DEPARTMENT Observed: 10/15/2018 Status: F Source: KATHY SUMMARY 1:05 AM [facility] REPOSITORY [facility] Medical Records Department [address] [place] [address] Emergency Department Summary 10/14/182033 MR#: [id number] Acct: [id number] Name: KARLOS BAZZI Rep #: [id number] : 1950 68 From: Yoan Vega MD PCP: Karan Talbert MD Status: ADM IN - ER Visit Summary Date of Service: 10/14/18 Chief Complaint: Lightheaded, unresponsive episode History of Present Illness: The patient is a [address] Karan Lomax and Dr. Olson. He reports that he had revision of a bilateral [place] pop bypass on September [address] Olson at [facility]. He states that since that time he has had low blood pressure. This is been gradually worsening. He states that he saw Dr. Lomax in the office last week and that they were unable to read my blood pressure because it was low. States that he had blood work that showed poor renal function. He is scheduled to see a urologist and have a stress test as an outpatient. They stopped his blood pressure medications last week. Patient reports that today he was at an orthopedic surgeon's office getting an x-ray and was standing for this. He had an episode where he did not respond during this. He did not have a syncopal episode. He denies any chest pain or palpitations. Reports that he had 2 episodes of chest pain last week. Describes it as a squeezing pain that was diffuse over his whole chest. Last approximately 20 minutes. It occurred with light activity and improved with rest. He reports he was short of breath at that time. He denies any nausea, vomiting, diaphoresis with this. Patient reports he has pain in the calves bilaterally if he stands for 15-20 minutes. This is improved since the surgery. On review of systems patient reports that he has had loose stools for the past week. No blood in his stools. He had nausea without vomiting. Complains of generalized weakness. He denies any other complaints. Review of systems: General: No fever, chills, cold sweats. Cardiovascular: No chest pain, palpitations. Respiratory: No cough, shortness of breath, dyspnea on exertion. Gastrointestinal: No abdominal pain, vomiting, melena, or hematochezia. Genitourinary: No dysuria, frequency, hematuria. Skin: No rash. Neuro: No headache, numbness. Physical Examination: Vitals: Stable. Afebrile. General: Well-nourished and well-developed. Head: Normocephalic atraumatic. Neck: Supple, no lymphadenopathy. No JVD. Nontender. Cardiovascular: Regular rate and rhythm. No murmurs. Respiratory: No respiratory distress. Clear to auscultation bilaterally. Abdominal: Soft, mild periumbilical tenderness to palpation, nondistended, normal bowel sounds. No guarding, rebound, or peritoneal signs. Back: Nontender. Extremities: Nontender, no edema. Skin: Normal color, no rash. Neurologic: Alert and oriented 3. Cranial nerves II through XII are intact. Normal strength and sensation. Psych: Normal affect. Test Results: EKG is sinus at [address] changes and a PVC. Unchanged 2014. Troponin is negative. Lactic acid is 1.3. UA is normal. LFTs marked for an AST of 12, total protein 6.1, and albumin 3.1. Chem-7 marked potassium of 5.8 (slight hemolysis), chloride 113, calcium 8.3, BUN of 50, creatinine 2.78. His creatinine is range between 1.49-1.72 in 2018. In 2017 it was 1.582.17. Chest x-ray shows chronic emphysematous changes and no acute disease. Emergency Department Course and Treatment: Patient was hypotensive in the emergency department. He was given a 30 cc/kg bolus of normal saline. His blood pressure has increased into the high 90s over 60s. He is resting comfortably. Treatment Plan: Patient was discussed with Dr. Robb and Dr. Childs. He will be admitted to the ICU for further evaluation and treatment. Disposition: Admitted in serious condition. Impression: 1. Hypertension. 2. Renal insufficiency. This note was generated with [employer] dictation software. It may contain incorrect words, spelling, and punctuation that were not noted in review of the chart prior to signing ED Disposition - Plan for ED Patient: Chief Complaint: Hypotension What to do if you have Problems For any increased pain, shortness of breath, bleeding, nausea or vomiting, chest pain, or any unexpected problems, contact your Primary Care Provider. Call [facility] ([phone]) or report to the closest Emergency Room. Call 911 if necessary. 10/15/18 0105 <Electronically signed by Yoan Vega MD> Date Yoan Vega MD Cosigner Signature (If Indicated): Date CC: Karan Talbert MD BASIC METABOLIC Collected: 10/14/2018 Status: F Source: KATHY PROFILE (BMP) 10:15 PM [facility] REPOSITORY TYPE CODE TESTS RESULT OUT OF RANGE REFERENCE UNITS LAB L501.0100 74-106 mg/dL Normal GLU 97 Result Comment: Please note revised GLUCOSE reference range effective 2017. LAB L501.1000 7-18 mg/dL High BUN 48 LAB L501.1100 0.70-1.30 mg/dL High CREAT,SERUM 2.56 Result Comment: The validity of the calculated GFR AND GFRAA in patients over 70 years has not been determined. Clinical correlation is essential. LAB L501.1110 >60 mL/min Low EST GFR 27 Result Comment: Non- GFR Calc LAB L501.1115 >60 mL/min Low EST GFR - AA 32 Result Comment: GFR Calc LAB L501.1255 ml/min Normal Estimated CRCL 29.01 LAB L501.1300 10-20 RATIO Normal BUN/CRE 18.8 LAB L501.2200 8.5-10 mg/dL Low .1 CA 8.2 LAB L501.5300 136-14 mmol/L Normal 5 NA 143 LAB L501.5600 3.5-5. mmol/L Normal 1 K 4.7 LAB L501.5900 98-107 mmol/L High CL 115 LAB L501.6100 21.0-3 mmol/L Normal 2.0 CO2 23.0 LAB L501.6200 5-15 Normal GAP 5 Performed By: #### L500.2500 #### [facility] [address] [place], [address] URINALYSIS, COMPLETE Collected: 10/14/2018 Status: F Source: KATHY 6:35 PM [facility] REPOSITORY Order Comment: Order Date: 10/14/18 How was Urine Obtained? PERSONAL FINANCIAL REPRESENTATIVE TO SPECIFY TYPE CODE TESTS RESULT OUT OF RANGE REFERENCE UNITS LAB L400.3000 Yellow COLOR Normal Yellow LAB L400.3050 Clear Normal CLARITY Clear LAB L400.3200 Normal mg/dl Normal GLUCOSE, UR Normal LAB L400.3300 Negative mg/dL Normal BILIRUBIN URINE Negative LAB L400.3400 Negative mg/dl Normal KETONE UR Negative LAB L400.3465 1.002-1.030 Normal SP.GR. DIPSTX 1.010 LAB L400.3550 5.0 - 8.0 pH UR Normal 6.0 LAB L400.3600 Negative mg/dl PROT Normal DIPSTX Negative LAB L400.3700 Normal mg/dl Normal UROBILI Normal LAB L400.3750 Negative Normal NITRITE UR Negative LAB L400.3780 Negative /ul Normal OCCULT BLOOD-UR Negative LAB L400.3800 Negative /ul LEUK Normal ESTERASE Negative LAB L400.4050 0-5 /hpf WBC Normal 0-5 SEEN LAB L400.4100 0-5 /hpf 0 Normal RBC-UA SEEN LAB L400.4150 0-5 /hpf SQUAM 0 Normal EPI SEEN LAB L400.4300 None Seen /hpf 0 Normal BACTERIA SEEN LAB L400.4350 <or=2+ /hpf 0 Normal MUCUS, URINE SEEN LAB L400.4400 0-5 /lpf Normal HYALINE CAST 0-5 SEEN Performed By: #### L400.0001 #### [facility] [address] [facility] [place], [address] URINE SODIUM Collected: 10/14/2018 Status: F Source: PRIMROSE 6:35 PM [facility] REPOSITORY TYPE CODE TESTS RESULT OUT OF RANGE REFERENCE UNITS LAB L501.5500 Not Establ. mmol/L Normal UR NA 41 Performed By: #### L501.5500 #### [facility] [address] [facility] [place], [address] CREATININE, URINE Collected: 10/14/2018 Status: F Source: PRIMROSE 6:35 PM [facility] REPOSITORY TYPE CODE TESTS RESULT OUT OF RANGE REFERENCE UNITS LAB L502.0300 NO RANGE EST. mg/dL Normal URINE 77.40 CREAT Performed By: #### L502.0300 #### [facility] [address] [facility] [place], [address] COMPREHENSIVE METABOLIC Collected: 10/14/2018 Status: F Source: [facility] 5:25 PM [facility] REPOSITORY Order Comment: 'TROP' Serial specimen #1, #2, #3, or #4: 1 TYPE CODE TESTS RESULT OUT OF RANGE REFERENCE UNITS LAB L501.0100 74-106 mg/dL Normal GLU 87 Result Comment: Please note revised GLUCOSE reference range effective 2017. LAB L501.1000 7-18 mg/dL High BUN 50 LAB L501.1100 0.70-1.30 mg/dL High CREAT,SERUM 2.78 Result Comment: The validity of the calculated GFR AND GFRAA in patients over 70 years has not been determined. Clinical correlation is essential. LAB L501.1110 >60 mL/min Low EST GFR 24 Result Comment: Non- GFR Calc LAB L501.1115 >60 mL/min Low EST GFR - AA 29 Result Comment: GFR Calc LAB L501.1255 ml/min Normal Estimated CRCL 26.71 LAB L501.1300 10-20 RATIO Normal BUN/CRE 18.0 LAB L501.1500 6.4-8. g/dL Low 2 T PROT 6.1 LAB L501.1800 3.2-5. g/dL Low 0 ALB 3.1 LAB L501.1950 2.2-4. g/dL Normal 2 GLOB 3.0 LAB L501.2000 0.9-2. RATIO Normal 4 A/G 1.0 LAB L501.2200 8.5-10 mg/dL Low .1 CA 8.3 LAB L501.4100 15-37 U/L Low AST 12 Result Comment: Slight Hemolysis, Result may be falsely increased. LAB L501.4305 45-117 U/L Normal ALK P 80 LAB L501.4405 16-61 U/L Normal ALT 20 LAB L501.4600 0.20-1.00 mg/dL Normal T BILI 0.30 LAB L501.5300 136-145 mmol/L Normal NA 141 LAB L501.5600 3.5-5.1 mmol/L High K 5.8 Result Comment: Slight Hemolysis, Result may be falsely increased. LAB L501.5900 98-107 mmol/L High CL 113 LAB L501.6100 21.0-32.0 mmol/L Normal CO2 22.0 LAB L501.6200 5-15 Normal 6 GAP Performed By: #### L500.4050, L501.4010 #### [facility] [address] [place], [address] TROPONIN-I Collected: 10/14/2018 Status: F Source: KAHTY 5:25 PM [facility] REPOSITORY Order Comment: 'TROP' Serial specimen #1, #2, #3, or #4: 1 TYPE CODE TESTS RESULT OUT OF RANGE REFERENCE UNITS LAB L501.4010 <0.045 ng/mL Normal < 0.015 TROPONIN-I Result Comment: TROPONIN-I EXPECTED VALUES <0.045 Negative 0.045 - 0.590 Consistent with Cardiac Damage > OR = 0.600 Critical Value Not every elevated troponin is indicative of RI. These values should be used with clinical judgement in examining the patient's clinical picture for diagnosis. To establish a diagnosis of RI versus myocardial injury, there must be a demonstrated rise and/or fall in the troponin values, in addition to ischemic symptoms, EKG changes, new regional wall motion abnormality, and/or angiographical evidence. PLEASE NOTE: REFERENCE RANGES EDITED 18 Performed By: #### L500.4050, L501.4010 #### [facility] [address] [facility] [place], [address] Observed: 10/14/2018 Status: F Source: KATHY CULTURE, BLOOD (WB) 3:55 PM [facility] REPOSITORY NO ANAEROBIC BOTTLE RECEIVED BC No growth in 5 days. Performed By: #### M200.1000 #### [facility] [address] [place], [address] CBC W/DIFF, AUTOMATED Collected: 10/14/2018 Status: F Source: KATHY 3:40 PM [facility] REPOSITORY TYPE CODE TESTS RESULT OUT OF RANGE REFERENCE UNITS LAB L100.1000 4.4-11.0 K/mm3 Normal WBC 8.9 LAB L100.1200 4.6-6.2 M/mm3 Normal RBC 4.93 LAB L100.1300 13.0-16.5 g/dl Normal HGB 15.4 LAB L100.1400 40-54 % Normal HCT 46.9 LAB L100.1500 80-94 fL High MCV 95.1 LAB L100.1600 27.0-32.0 pg Normal MCH 31.2 LAB L100.1700 32-36 g/gl Normal MCHC 32.8 LAB L100.1810 11.6-14.6 % Normal RDW CV 13.5 LAB L100.1820 35.1-43.9 fl High RDW SD 47.0 LAB L100.1900 150-450 K/mm3 Normal PLT 298 LAB L100.2000 6.2-12.0 fl Normal MPV 9.0 LAB L100.2100 47-70 % Normal NEUT% 66.0 LAB L100.2200 19-41 % Normal LY% 20.5 LAB L100.2300 0-10 % Normal MONO% 9.0 LAB L100.2400 0-5 % Normal EO% 3.6 LAB L100.2500 0-1 % Normal BASO% 0.7 LAB L100.2550 0.0-0.9 % Normal IM GRAN % 0.200 Result Comment: IG% - Immature Granulocytes (promyelocytes, myelocytes and metamyelocytes) > 1% indicates that a LEFT SHIFT is Present. LAB L100.2620 2.0-7.7 X10 3/uL Normal Absolute Neut 5.9 LAB L100.2720 0.83-4.51 X10 3/ul Normal Absolute Lymph 1.83 Performed By: #### L100.0100 #### [facility] [address] [facility] [place], [place], [id number] LACTIC ACID Collected: 10/14/2018 Status: F Source: KATHY 3:40 PM [facility] REPOSITORY Order Comment: Yes/No query for Sepsis Lactate Rule Y TYPE CODE TESTS RESULT OUT OF RANGE REFERENCE UNITS LAB L503.6005 0.4-2.0 mmol/L Normal LACTIC ACID 1.3 Performed By: #### L503.6005 #### [facility] [address] [place], [place], [id number] Observed: 10/14/2018 Status: F Source: KATHY CULTURE, BLOOD (WB) 3:40 PM [facility] REPOSITORY BC No growth in 5 days. Performed By: #### M200.1000 #### [facility] [address] [place], [place], [id number] CHEST 1 VIEW Observed: 10/14/2018 Status: F Source: KATHY (PORTABLE) 3:17 PM [facility] REPOSITORY [facility] Imaging Services [address] [place] [address] Chest 1 View (Portable) MR#: [id number] Acct: [id number] Name: KARLOS BAZZI Rep #: [id number] : 1950 M 68 From: Efrain Dominique MD PCP: Karan Talbert MD Status: REG ER Study: Chest 1 View (Portable) Date of Exam: 10/14/18 Exam# [id number] Ordering Dr: Yoan Vega MD STUDY: X-RAY CHEST REASON FOR EXAM: Male, 68 years old. Chest pain. Hypotension. TECHNIQUE: Single AP portable view of the chest. COMPARISON: Comparison is made with prior study dated October 09, 2018. FINDINGS: EKG electrodes are seen. Hyperinflation. The lungs are clear. Decreased bronchovascular markings in the upper lobes suggestive of emphysematous changes. There is no demonstrated pleural abnormality. Normal size heart. Normal mediastinum and debra. Normal visualized pulmonary arteries. There is atherosclerotic calcification of the aortic arch with tortuosity. Normal visualized thoracic spine. Normal visualized ribs, clavicles, and shoulders. There is no demonstrated abnormality of the visualized soft tissue structures of the upper abdomen. RAD/Chest 1 View (Portable) IMPRESSION: Hyperinflation. The lungs are clear. Electronically Signed: Efrain Dominique MD at 15:43 EST Tel [phone], Service support , CC: Karan Talbert MD; Yoan Vega MD Coil Winder Repair: Signed CHEST PA AND LATERAL Observed: 10/09/2018 Status: F Source: KATHY 10:52 AM [facility] REPOSITORY [facility] Imaging Services [address] [place] [address] Chest PA and Lateral MR#: [id number] Acct: [id number] Name: KARLOS BAZZI Rep #: [id number] : 1950 M 68 From: Lan Souza DO PCP: Karan Talbert MD Status: REG CLI Study: Chest PA and Lateral Date of Exam: 10/09/18 Exam# [id number] Ordering Dr: Karan Talbert MD STUDY: X-RAY CHEST REASON FOR EXAM: Male, 68 years old. Atypical chest pain. TECHNIQUE: PA and lateral views of the chest. COMPARISON: August 19, 2015. FINDINGS: There is hyperinflation of the lungs consistent with chronic obstructive lung disease (COPD). No new mass or infiltrate. There is no demonstrated pleural abnormality. Normal size heart. Normal mediastinum and debra. Normal visualized pulmonary arteries. There is atherosclerotic calcification of the aortic arch with tortuosity. There are diffuse degenerative changes of the visualized thoracic spine. There is degenerative osteoarthritis of the bilateral shoulders. There is no demonstrated abnormality of the visualized soft tissue structures of the upper abdomen. RAD/Chest PA and Lateral IMPRESSION: COPD without acute cardiopulmonary disease or major interval change. Electronically Signed: aLn Souza DO at 18:41 EST Tel [phone], Service support , CC: Karan Talbert MD Coil Winder Repair: Signed CBC W/DIFF, AUTOMATED Collected: 10/09/2018 Status: F Source: KATHY 10:47 AM [facility] REPOSITORY TYPE CODE TESTS RESULT OUT OF RANGE REFERENCE UNITS LAB L100.1000 4.4-11.0 K/mm3 Normal WBC 8.6 LAB L100.1200 4.6-6.2 M/mm3 Normal RBC 4.96 LAB L100.1300 13.0-16.5 g/dl Normal HGB 15.5 LAB L100.1400 40-54 % Normal HCT 47.4 LAB L100.1500 80-94 fL High MCV 95.6 LAB L100.1600 27.0-32.0 pg Normal MCH 31.3 LAB L100.1700 32-36 g/gl Normal MCHC 32.7 LAB L100.1810 11.6-14.6 % Normal RDW CV 13.7 LAB L100.1820 35.1-43.9 fl High RDW SD 47.0 LAB L100.1900 150-450 K/mm3 Normal PLT 334 LAB L100.2000 6.2-12.0 fl Normal MPV 9.3 LAB L100.2100 47-70 % Normal NEUT% 54.2 LAB L100.2200 19-41 % Normal LY% 28.1 LAB L100.2300 0-10 % High MONO% 12.5 LAB L100.2400 0-5 % Normal EO% 4.1 LAB L100.2500 0-1 % Normal BASO% 0.8 LAB L100.2550 0.0-0.9 % Normal IM GRAN % 0.300 Result Comment: IG% - Immature Granulocytes (promyelocytes, myelocytes and metamyelocytes) > 1% indicates that a LEFT SHIFT is Present. LAB L100.2620 2.0-7.7 X10 3/uL Normal Absolute Neut 4.7 LAB L100.2720 0.83-4.51 X10 3/ul Normal Absolute Lymph 2.43 Performed By: #### L100.0100 #### [facility] [address] [place], [place], [address] BASIC METABOLIC Collected: 10/09/2018 Status: F Source: PRIMROSE PROFILE ([place]OTMAN [facility] 10:47 AM [facility] REPOS[facility] TYPE CODE TESTS RESULT OUT OF RANGE REFERENCE UNITS LAB L501.0100 74-106 mg/dL Normal GLU 97 Result Comment: Please note revised GLUCOSE reference range effective 2017. LAB L501.1000 7-18 mg/dL High BUN 54 LAB L501.1100 0.70-1.30 mg/dL High CREAT,SERUM 2.59 Result Comment: The validity of the calculated GFR AND GFRAA in patients over 70 years has not been determined. Clinical correlation is essential. LAB L501.1110 >60 mL/min Low EST GFR 26 Result Comment: Non- GFR Calc LAB L501.1115 >60 mL/min Low EST GFR - AA 32 Result Comment: GFR Calc LAB L501.1300 10-20 RATIO High BUN/CRE 20.8 LAB L501.2200 8.5-10.1 mg/dL CA Normal 9.2 LAB L501.5300 136-145 mmol/L NA Normal 140 LAB L501.5600 3.5-5.1 mmol/L K Normal 4.8 LAB L501.5900 98-107 mmol/L High CL 108 LAB L501.6100 21.0-32.0 mmol/L Normal CO2 24.0 LAB L501.6200 5-15 Normal GAP 8 Performed By: #### L500.2500 #### [facility] [address] [place], [place], [id number] CBC Collected: 09/08/2018 Status: F Source: [facility] 9:15 AM [facility] REPOSITORY Order Comment: Robinson: M TYPE CODE TESTS RESULT OUT OF RANGE REFERENCE UNITS LAB L200.45047 4.5-11.0 K/CU MM Normal WBC 7.8 LAB L200.83658 4.50-6.00 M/CU MM Normal RBC 4.89 LAB L200.55733 13.5-17.5 G/DL Normal HGB 15.0 LAB L200.85531 41.0-53.0 % Normal HCT 46.9 LAB L200.04472 80.0-99.0 fl Normal MCV 95.9 LAB L200.66196 32.0-36.0 GM/DL Normal MCHC 32.0 LAB L200.27257 11-14.5 Normal RDW 13.6 LAB L200.92885 9.4-12.4 Low MPV 9.0 LAB L200.06994 150-450 K/CU MM Normal PLT 260 LAB L200.73733 Less than 1 % Normal NRBC 0.0 Performed By: #### L200.90474 #### [facility] [address] [place] [address] RENAL Collected: 09/08/2018 Status: F Source: [facility] 9:15 AM [facility] REPOSITORY Order Comment: Robinson: M TYPE CODE TESTS RESULT OUT OF RANGE REFERENCE UNITS LAB L500.46663 136-145 MMOL/L Normal NA 140 LAB L500.42274 3.5-5.1 MMOL/L Normal K 4.1 LAB L500.59595 98-107 MMOL/L Normal CL 107 LAB L500.77069 21-32 MMOL/L Normal CO2 27 LAB L500.37286 5-16 MMOL/L Normal AGAP 6 LAB L500.19272 70-100 MG/DL Normal GLU 84 Result Comment: 70-100- Normal Fasting; 100-125 Impaired Fasting; greater than 126 on more than one result- Diabetes. ADA guidelines. Results may be falsely elevated after the administration of Sulfapyridine. Results may be falsely depressed after the administration of Sulfasalazine. LAB L500.27555 7-26 MG/DL High BUN 35 LAB L500.07463 0.670-1.170 MG/DL High CREAT 1.780 Result Comment: Patients receiving either N-Acetylcysteine (NAC) or Metamizole prior to venipuncture, may have falsely depressed results. LAB L500.55204 15-24 Normal BUN/CREA 19 LAB L500.37311 3.2-5.0 GM/DL Normal ALBUMIN 3.6 LAB L500.12627 8.5-10.1 MG/DL Normal CALCIUM TOTAL 8.9 LAB L500.18888 2.5-4.9 MG/DL Normal PHOS 3.1 Performed By: #### L500.70125, L500.90144 #### [facility] [address] [address] GFR EST Collected: 09/08/2018 Status: F Source: [facility] 9:15 AM [facility] REPOSITORY Order Comment: Robinson: TYPE CODE TESTS RESULT OUT OF RANGE REFERENCE UNITS LAB L500.73144 ML/MIN Normal IF non-AFR 38 AMER LAB L500.52978 ML/MIN Normal IF 46 AMER Performed By: #### L500.41386, L500.53401 #### [facility] [address] [address] OR Observed: 09/08/2018 Status: UNK Source: [facility] 8:01 AM [facility] REPOSITORY DATE OF SERVICE: 09/08/2018 PREOPERATIVE DIAGNOSIS: Peripheral artery disease. POSTOPERATIVE DIAGNOSIS: Peripheral artery disease. OPERATION: 1. Ultrasound guided access retrograde, left common femoral artery. 2. Aortogram with bilateral iliofemoral imaging. 3. Balloon angioplasty of the right common iliac stent with an 8 x 4 [place]. 4. Balloon angioplasty from the left common to external iliac stent with a 6 x 100 drug-coated balloon. 5. Bilateral selective femoral angiogram with catheter placed in the bilateral superficial femoral arteries. 6. Closure with Boomerang. SURGEON: Iban Olson MD INDICATION: Patient with previous some stenting, comes in for some increasing symptoms and decreased SHASHANK. Looks like got a stenosis in his right common iliac artery and some bilateral severe SFA stenosis. Suggested that we do angiogram with intervention. The risks, benefits, alternatives discussed. He agreed to proceed. OPERATION: The patient was brought to the operating room. Underwent the appropriate timeout and consent. Underwent sedation. Was prepped and draped in a sterile fashion. We did ultrasound guided access retrograde, left brachial artery. We then gave 5000 units of heparin. We then got a wire down the descending thoracic aorta, switched to a [place], and then a stiff Glidewire. We then put the stiff Glidewire, and brought a long 6 Azerbaijani sheath, did an aortogram. It showed some stenosis to the right common iliac artery stent, and some in-stent stenosis on the left common external iliac stent. We first sent the wire down the left. We ballooned through this area on the left with a 6 x 100 drug-coated balloon for over 2-1/2 minutes. We then got the wire down the right side. We ballooned this with an 8 x 4 [place] for over 2-1/2 minutes. Did a completion, showed better flow through both these areas through the common femoral artery, profunda and into the proximal SFA, and widely patent. With the wire down the right side, we then brought a Quick Cross catheter image from there showing a severe stenosis at the area of the adductor, but with still antegrade flow through here, and some collaterals noted around, but adequate flow. We then had the wire back and got it down the left side to the mid SFA and imaged from there. It again showed the same area around the adductor with a severe segmental stenosis, but good flow through here. We then put the wire back, removed out the catheter and sheath, put a shorter sheath, deployed a Boomerang. There was good hemostasis. We then put 30 of protamine. He was then brought to recovery in stable condition. [facility] PATIENT NAME: KARLOS BAZZI Dr. Mcneal MEDICAL REC #: [id number] [place] [address] ADMIT DATE: DISCHARGE DATE: OPERATIVE REPORT ATTENDING PHY: Iban Olson MD SEDATION: This 68-year-old gentleman underwent moderate sedation given by Dr. Iban Olson. He was monitored with EKG, blood pressure and pulse and pulse oximetry for over 30 minutes of the procedure. He tolerated this well without difficulty. See the EMR for the more complete record. Iban Olson MD [id number] [facility] File#: [id number] Verified/Reviewed by 09/10/[address] [facility] PATIENT NAME: KARLOS BAZZI Dr. Mcneal MEDICAL REC #: [id number] [place] [address] ADMIT DATE: DISCHARGE DATE: OPERATIVE REPORT ATTENDING PHY: Iban Olson MD LOW DOSE CT LUNG Observed: 08/03/2018 Status: F Source: [facility] 4:51 PM [facility] REPOSITORY [facility] Imaging Services [address] [place] [address] Lung Screening MR#: [id number] Acct: [id number] Name: KARLOS BAZZI Rep #: [id number] : 1950 M 67 From: Lan Souza DO PCP: Karan Talbert MD Status: REG CLI Study: Low Dose CT Lung Screening Date of Exam: 08/03/18 Exam# [id number] Ordering Dr: Karan Talbert MD STUDY: LOW DOSE CT LUNG CANCER SCREENING REASON FOR EXAM: Male, 67 years old. 53 pack-year history. Pain in the left lung. Bladder cancer. RADIATION DOSAGE (If Supplied By Facility): CTDIvol = ( 3.02 ) mGy, DLP = ( 106.46 ) mGycm TECHNIQUE: No contrast was administered. Low dose technique was utilized (average mAS-38 and kVp 120). 1.25 mm axial source images with a slice interval of 1.25- mm were reconstructed in lung windows. 2.5 mm axial source images with a slice interval of 2.5-mm were reconstructed in lung windows. 5.0 mm axial source images with a slice interval of 5.0-mm were reconstructed in soft tissue windows. Nodule measured using lung windows on PACS and/or independent workstation with automated measurement of minimum and maximum diameter. Nodule measurement reported as average diameter rounded to the nearest whole number. Growth is defined as an increase ins size of greater than 1.5 mm. COMPARISON: Chest, August 09, 2015. NODULES: Total lung nodules (excluding granulomas): 0 Emphysema: There are marked emphysematous changes throughout both lungs. There is bilateral apical pleural scarring. Endobronchial lesion: No Aorta: There is atherosclerotic changes of the thoracic aorta without aneurysm. Coronary arteries: There are coronary artery calcifications. Heart: The heart is normal in size. There is no pericardial abnormality. Pulmonary artery: Normal Mediastinal nodes: There are subcentimeter nonspecific mediastinal and right hilar lymph nodes. Other chest and abdominal findings: Minimal degenerative changes of the thoracic spine. CT/Low Dose CT Lung Screening IMPRESSION: Lung-RADS category 1 - Continue annual screening with LDCT in 12 months. IMPORTANT NOTES FOR USE: ACR Lung-RADS Version 1.0 Assessment Categories Release Date: February 28, 2014 Category: Coded 0-4 bases on nodule(s) with highest degree of suspicion. Negative screen is defined as categories 1 and 2; a positive screen is defined as categories 3 and 4. Category 3 and 4A nodules that are unchanged on interval CT should be coded as category 2, and individuals returned to screening in 12 months. Category 4X: Category 3 or 4 nodules with additional imaging findings that increase the suspicion of lung cancer, such as spiculation, GGN that doubles in size in 1 year, enlarged lymph notes, etc. Category Modifiers: S (significant finding unrelated to lung cancer) and C (prior history of treated lung cancer) may be added to the 0-4 Lung-RADS Electronically Signed: Lan Souza DO at 22:29 EDT Tel [phone], Service support , CC: Karan Talbert MD Coil Winder Repair: Signed LOWER EXT ARTERIAL Observed: 06/24/2018 Status: F Source: [facility] 8:42 AM [facility] REPOSITORY [facility] Cardiovascular Services [address] [place] [address] 06/24/18 0840 MR#: [id number] Acct: [id number] Name: KARLOS BAZZI Rep #: [id number] : 1950 67 From: Iban Olson MD Attending Dr: Iban Olson MD Status: REG CLI Ordering Dr: Date: 06/24/18 Location: [facility] Sex: M C Admitted: Arterial Study - Arterial Study Arterial Study: Date of scan 06/23/[address] Olson History: Patient with claudication symptoms Interpretation: Right lower extremity pulsatile flow decreased waveform at the ankle out through the digits duplex shows biphasic flow both vessels at the ankle with an SHASHANK 0.7 of the PT 0.6 for the DP. Left lower extremity again with pulsatile flow noted at the ankle out through the digits appears to be slightly decreased duplex shows biphasic flow of the PT and more of a monophasic flow the DP. SHASHANK 0.65 of the PT 0.5 to the DP. Impression: 1. Right lower extremity moderate arterial occlusive disease with an SHASHANK 0.7. 2. Left lower extremity moderate arterial occlusive disease with an SHASHANK 0.65. 06/24/1842 <Electronically signed by Iban Olson MD> Date Iban Olson MD CC: Iban Olson MD; Karan Talbert MD Date Dictated: 06/24/18839 Date Transcribed: 06/24/18839 Coil Winder Repair: GILMA Signed ARTERIAL DUPLEX US Observed: 06/24/2018 Status: F Source: [facility] 8:20 AM [facility] REPOSITORY [facility] Cardiovascular Services [address] [place] [address] Art Duplex US Bilat Lower Ext 06/23/18816 MR#: [id number] Acct: [id number] Name: KARLOS BAZZI Rep #: [id number] : 1950 67 From: Iban Olson MD Attending Dr: Iban Olson MD Status: REG CLI Ordering Dr: Iban Olson MD Date: 06/23/18 Location: [facility] Sex: M C Admitted: Reason For Study: Atherosclerosis with claudication Right Velocities Left Velocities Common Femoral Artery, mid = 98.2 cm./sec. Common Femoral Artery, mid = 146 cm./sec. Supf Femoral Artery, prox = 100 cm./sec. Supf. Femoral Artery, prox = 167 cm./sec. Supf Femoral Artery, mid = 532 cm./sec. Supf. Femoral Artery, mid = 522 cm./sec. SFA Mid/Dist 281 cm/s. Supf. Femoral Artery, dist = 124 cm./sec. Supf Femoral Artery, dist. = 58.1 cm./sec. Profunda Femoral Artery = 109 cm./sec. Profunda Femoral Artery = 180 cm./sec. Popliteal Artery, mid = 56.6 cm./sec. Popliteal Artery, mid = 71.5 cm./sec. Post. Tibial Artery, prox = 37.7 cm./sec. Post. Tibial Artery, prox = 46.3 cm./sec. Post Tibial Artery, mid = 35.8 cm./sec. Post. Tibial Artery, mid = 50.4 cm./sec. Post Tibial Artery, dist. = 35.4 cm./sec. Post. Tibial Artery, dist = 36.4 cm./sec. Ant.Tibial Artery, prox = 27.9 cm./sec. Peroneal Artery, prox = 33.4 cm./sec. Ant Tibial Artery, mid = 20.8 cm./sec. Peroneal Artery, mid = 41.6 cm./sec. Ant. Tibial Artery, distal = 24.4 cm./sec. Peroneal Artery,dist = 31.7 cm./sec. Unable to demonstrate flow in the Peroneal Art. Ant. Tibial Artery, prox = 41.6 cm./sec. Ant. Tibial Artery, mid = 38.7 cm./sec. Ant. Tibial Artery, dist = 43.4 cm./sec. Interpretation Summary 1. Bilateral SFa with proximal triphasic flow and then severe stenosis with decreased flow below. Ordering Physician: Iban Olson Performed By: Horace Calderon RVT 06/24/18818 Date Iban Olson MD CC: Iban Olson MD; Karan Talbert MD Date Dictated: 06/23/18816 Date Transcribed: 06/24/18818 Coil Winder Repair: Signed ABD AORTIC/IVC DUPLEX Observed: 06/24/2018 Status: F Source: [facility] 8:20 AM [facility] REPOSITORY [facility] Cardiovascular Services [address] [place] [address] Abd Aortic/IVC Duplex scan 06/23/18 0803 MR#: [id number] Acct: [id number] Name: KARLOS BAZZI Rep #: [id number] : 1950 67 From: Iban Olson MD Attending Dr: Iban Olson MD Status: REG CLI Ordering Dr: Iban Olson MD Date: 06/23/18 Location: [facility] Sex: M C Admitted: Reason For Study: Aorta atherosclerosis Aorta Measurements Aorta Doppler Measurements Proximal aorta measures2.41 x 2.41cm. in cross- Peak systolic flow velocities within the proximal sectional axis. aorta measure 74.8 cm/sec. Proximal aorta measures2.48cm. in longitudinal Peak systolic flow velocities within the mid axis. aorta measure 37.4 cm/sec. Mid aorta measures1.94 x 1.94cm. in cross- Peak systolic flow velocities within the distal sectional axis. aorta measure 45.6 cm/sec. Mid aorta measures1.81cm. in longitudinal axis. Distal aorta measures1.46 x 1.59cm. in cross- sectional axis. Distal aorta measures1.58cm. in longitudinal axis. Left Iliac Artery Left iliac artery measures .604 x .659 cm. in the cross-sectional axis. Left iliac artery measures .627 cm. in the longitudinal axis. Peak systolic velocity in the left iliac artery measures 83.0 cm/sec. Right Iliac Artery Right iliac artery measures .619 x .640 cm. in the cross-sectional axis. Right iliac artery measures .659 cm. in the longitudinal axis. Peak systolic velocity in the right iliac artery measures 316 cm/sec. Procedure The exam was diagnostic. Exam performed in department. Interpretation Summary 1. no aortoiliac aneurysm 2. Severe stenosis right ROXANNE. Ordering Physician: Iban Olson Performed By: Horace Calderon RVT 06/24/18819 Date Iban Olson MD CC: Iban Olson MD; Karan Talbert MD Date Dictated: 06/23/18 08 Date Transcribed: 06/24/18819 Coil Winder Repair: Signed CAROTID DUPLEX Observed: 06/24/2018 Status: F Source: [facility] 8:18 AM [facility] REPOSITORY [facility] Cardiovascular Services [address] [place], [place] [address]JAVON [place] [address] Carotid Duplex Ultrasound 06/23/18 0849 MR#: [id number] Acct: [id number] Name: KARLOS BAZZI Rep #: [id number] : 1950 67 From: Iban Olson MD Attending Dr: Iban Olson MD Status: REG CLI Ordering Dr: Iban Olson MD Date: 06/23/18 Location: [facility] Sex: M C Admitted: Reason For Study: carotid stenosis Rt. Velocities/BP Lt. Velocities/BP Prox CCA 86.8/29.3 cm/sec. Prox CCA 81.7/22.8 cm/sec. Mid CCA 99.7/25.8 cm/sec. Mid CCA 77.0/16.5 cm/sec. Dist CCA 120/41.6 cm/sec. Dist CCA 84.9/22.0 cm/sec. Prox ICA 204/49.8 cm/sec. Prox ICA 223/40.6 cm/sec. Mid ICA 170/50.1 cm/sec. Mid ICA 130/34.0 cm/sec. Dist ICA 110/23.6 cm/sec. Dist ICA 101/17.0 cm/sec. Rt. ICA/CCA = 2.0. Lt. ICA/CCA = 2.9. Prox ECA 359/67.3 cm/sec. Prox ECA 198/19.6 cm/sec. Rt. Vert. 78.6/29.5 cm/sec. Right Extracranial There is heterogeneous, irregular atherosclerotic plaque noted in the right common carotid artery. There is heterogeneous, irregular atherosclerotic plaque noted in the right internal carotid artery. There is heterogeneous, irregular atherosclerotic plaque noted in the right external carotid artery. Antegrade flow is noted in the right vertebral artery. Left Extracranial There is homogeneous, irregular atherosclerotic plaque noted in the left common carotid artery. There is homogeneous, smooth atherosclerotic plaque noted in the left internal carotid artery. There is heterogeneous, irregular atherosclerotic plaque noted in the left external carotid artery. Flow could not be demonstrated in the left vertebral artery. Procedure Carotid Duplex 58450. The exam was diagnostic. Exam performed in department. Interpretation Summary Moderate (50-69%) stenosis right extracranial internal carotid. Moderate (50-69%) stenosis left extracranial internal carotid. Flow within the right verterbral artery is antegrade. Flow could not be demonstrated in the left vertebral artery. Ordering Physician: Iban Olson Performed By: Horace Calderon RVT 06/24/18817 Date Iban Olson MD CC: Iban Olson MD; Karan Talbert MD Date Dictated: 06/23/1849 Date Transcribed: 06/24/18817 Coil Winder Repair: Signed CARDIOLOGY VISIT Observed: 06/17/2018 Status: F Source: [facility] 11:51 AM [facility] REPOSITORY [facility] [address] [place] [address] OFFICE VISIT Date of Service: 06/11/18 MR#: [id number] Acct: [id number] Name: KARLOS BAZZI Rep #: [id number] : 1950 Provider: Birdie Matos Age/Sex: 67/M Location: [facility] Status: Signed HPI HPI Details: KARLOS BAZZI, is a 67 M who presents to the office today for a cardiovascular follow-up. He has a history of syncope and intermittent dizziness, peripheral vascular disease and tobacco abuse. Pt has not had any episodes of syncope. He did have one episode of near syncope this occurred a few weeks ago. This has occurred a few times in the last year. It is always positional. He does not have any chest pain/heaviness. He does not have any worsening SOB. He does not have any palpitations. He does not have any edema. He quit smoking a few weeks ago. He does follow with Dr. Olson for his PVD. 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 Is patient in pain?: No Allergies morphine Allergy (Verified 06/11/18 14:31) Other Medications Amitriptyline HCl 100 mg PO DAILY 07/25/15 [History Confirmed 08/09/15] Aspirin [Aspirin, Baby] 81 mg PO DAILY@0800 07/25/15 [History Confirmed 08/09/15] Multivitamin [Daily Multiple Vitamin] 1 ea PO DAILY 07/25/15 [History Confirmed 08/09/15] Omeprazole [Prilosec] 20 mg PO DAILY 07/25/15 [History Confirmed 08/09/15] Atorvastatin Calcium [Lipitor] 80 mg PO QHS #30 tab 08/11/15 [Rx] PFSH Medical History Near syncope (Chronic) Orthostatic hypotension (Chronic) HTN (hypertension) (Chronic) HLD (hyperlipidemia) (Chronic) PAD (peripheral artery disease) (Chronic) Social History Smoking Status: Current every day smoker ROS Const Const: Negative for weakness, fatigue, fever(s) or headache(s) Eyes Eyes: Negative for blind spots, loss of peripheral vision or transient loss of vision ENT ENT: Positive for dizziness; negative for headache(s), tinnitus or Nosebleed/epistaxis Cardio Chest Pain: No Palpitations: No Edema: None Muscle aches with walking: Bilateral Resp Respiratory: Negative for SOB with activity, SOB at rest, SOB orthopnea\SOB lying down or Cough GI GI: Negative nausea, vomiting, heartburn or vomiting blood/hematemesis : Negative for hematuria Musc Musc: Negative for muscle aches/ myalgia Neuro Neuro: Positive for dizziness and orthostatic symptoms; negative for weakness, headache(s), syncope, lightheadedness or near syncope Duane Hematologic/Lymphatic: Negative for easy bleeding Endo Endo: Negative for fatigue Cardiology Exam Const Appearance: cooperative, no acute distress and well developed Orientation: alert, awake and oriented x3 Head Head: normocephalic and atraumatic Mouth: moist mucous membranes Eyes General: appearance normal, both eyes and all related structures Conjunctivae: conjunctivae normal Pupils: PERRL EOM: EOM intact bilaterally Neck Neck: normal visual inspection, no lymphadenopathy and no JVD Carotids: Negative bruit carotid endarterectomy: Left Neck Mass: Negative Neck mass Chest Chest inspection: normal inspection of the chest and symmetric chest movement Auscultation: Bilateral: Clear to Auscultation Cardio Palpation: normal PMI Rate: regular rate Rhythm: regular rhythm Heart sounds: S1 normal and S2 normal; negative rub, gallop or murmur GI GI: normal to inspection, soft, no hepatosplenomegaly and bowel sounds present; negative tender Neuro General: alert, awake, oriented x3, CN's II-XI intact bilaterally and moves all extremities Extremities Pulses: Normal: Right Radial Pulse, Left Radial Pulse, Diminished: Right Dorsalis Pedis Pulse, Left Dorsalis Pedis Pulse, Right Posterior Tibial Pulse, Left Posterior Tibial Pulse Lower Extremity Edema: None: Bilateral Psych Psychological: normal affect Supplemental Info Echocardiogram in 2015 demonstrates an ejection fraction of 65%. RVSP 18 mmHg. Assessment AND Plan 1. Orthostatic hypotension I95.1 Plan - JARON Reaves She does continue to have episodes of positional dizziness. He was encouraged to continue with adequate fluid hydration and compression stockings. Did have a discussion with patient about his positional dizziness and if he has any further episodes would consider doing an event monitor in the future if this persists. 2. PAD (peripheral artery disease) I73.9 Plan - JARON Reaves Encourage patient to continue to follow with Dr. Olson regarding his peripheral vascular disease. 3. Pure hypercholesterolemia E78.00; E78.0 Plan - JARON Reaves Patient's lipids are adequately controlled on current medications. Recent lipid profile demonstrates total cholesterol of 22, HDL 41, LDL 110. Plan Detail Additional Comments - JARON Reaves The above patient was discussed with Dr. Kuzn, he agrees with plan of care. Thank you for allowing us to participate in patient's plan of care, if you have any questions please do not hesitate to call. This note was generated using a voice recognition system and there may be incorrect words, spelling or punctuation errors that were not noted when reviewing the office note prior to saving. Follow Up 1 Year (DIP GUIDER STOVES) Coding Level of Care Code Off vis,est,level 3 Diagnoses Orthostatic hypotension I95.1 PAD (peripheral artery disease) I73.9 Pure hypercholesterolemia E78.00; E78.0 Hyperlipidemia type: pure hypercholesterolemia Coding Level of Care Code Off vis,est,level 3 Diagnoses Orthostatic hypotension I95.1 PAD (peripheral artery disease) I73.9 Pure hypercholesterolemia E78.00; E78.0 Hyperlipidemia type: pure hypercholesterolemia 06/11/18 1654 <Electronically signed by Birdie SALMERON> Date Birdie SALMERON 06/17/18 1151<Electronically signed by Maximiliano Kunz MD> Cosigner Signature: Date (if applicable) Maximiliano Kunz MD CC: Karan Talbert MD ABD INC DECUB Observed: 06/15/2018 Status: F Source: KATHY AND/OR ERECT 3:08 PM [facility] REPOSITORY [facility] Imaging Services [address] [place] [address] Abd Inc Decub and/or Erect MR#: [id number] Acct: [id number] Name: KAROLS BAZZI Rep #: [id number] : 1950 M 67 From: Moustapha Bergeron DO PCP: Karan Talbert MD Status: REG CLI Study: Abd Inc Decub and/or Erect Date of Exam: 06/15/18 Exam# [id number] Ordering Dr: Karan Talbert MD STUDY: X-RAY - ABDOMEN/PELVIS REASON FOR EXAM: Male, 67 years old. Pain TECHNIQUE: 4 views COMPARISON: None. FINDINGS: Normal visualized lung bases. There is an unremarkable bowel gas pattern. Proximal colonic fecal retention. There is no demonstrated free abdominal air. There are calcifications over the renal shadows. Normal soft tissue structures. Vascular stents are noted of the iliac arteries. Mild degenerative lower lumbar changes. Previous ORIF of the left femur. RAD/Abd Inc Decub and/or Erect IMPRESSION: Fecal retention. There are calcifications over the renal shadows. Electronically Signed: Moustapha Bergeron DO at 23:54 EDT Tel [phone], Service support , CC: Karan Talbert MD Coil Winder Repair: Signed CBC W/DIFF, AUTOMATED Collected: 06/15/2018 Status: F Source: KATHY 2:42 PM [facility] REPOSITORY TYPE CODE TESTS RESULT OUT OF RANGE REFERENCE UNITS LAB L100.1000 4.4-11.0 K/mm3 Normal WBC 8.8 LAB L100.1200 4.6-6.2 M/mm3 Normal RBC 5.25 LAB L100.1300 13.0-16.5 g/dl Normal HGB 16.4 LAB L100.1400 40-54 % Normal HCT 49.7 LAB L100.1500 80-94 fL High MCV 94.7 LAB L100.1600 27.0-32.0 pg Normal MCH 31.2 LAB L100.1700 32-36 g/gl Normal MCHC 33.0 LAB L100.1810 11.6-14.6 % Normal RDW CV 14.0 LAB L100.1820 35.1-43.9 fl High RDW SD 48.0 LAB L100.1900 150-450 K/mm3 Normal PLT 297 LAB L100.2000 6.2-12.0 fl Normal MPV 9.3 LAB L100.2100 47-70 % Normal NEUT% 55.6 LAB L100.2200 19-41 % Normal LY% 29.6 LAB L100.2300 0-10 % High MONO% 11.5 LAB L100.2400 0-5 % Normal EO% 2.3 LAB L100.2500 0-1 % Normal BASO% 0.7 LAB L100.2550 0.0-0.9 % Normal IM GRAN % 0.300 Result Comment: IG% - Immature Granulocytes (promyelocytes, myelocytes and metamyelocytes) > 1% indicates that a LEFT SHIFT is Present. LAB L100.2620 2.0-7.7 X10 3/uL Normal Absolute Neut 4.9 LAB L100.2720 0.83-4.51 X10 3/ul Normal Absolute Lymph 2.61 Performed By: #### L100.0100 #### [facility] [address] [place], [place], [id number] COMPREHENSIVE METABOLIC Collected: 06/15/2018 Status: F Source: [facility] 2:42 PM [facility] REPOSIT[facility] TYPE CODE TESTS RESULT OUT OF RANGE REFERENCE UNITS LAB L501.0100 74-106 mg/dL Low GLU 61 Result Comment: Please note revised GLUCOSE reference range effective 2017. LAB L501.1000 7-18 mg/dL High BUN 26 LAB L501.1100 0.70-1.30 mg/dL High CREAT,SERUM 1.57 Result Comment: The validity of the calculated GFR AND GFRAA in patients over 70 years has not been determined. Clinical correlation is essential. LAB L501.1110 >60 mL/min Low EST GFR 47 Result Comment: Non- GFR Calc LAB L501.1115 >60 mL/min Low EST GFR - AA 57 Result Comment: GFR Calc LAB L501.1300 10-20 RATIO Normal BUN/CRE 16.6 LAB L501.1500 6.4-8.2 g/dL T Normal PROT 7.2 LAB L501.1800 3.2-5.0 g/dL Normal ALB 3.6 LAB L501.1950 2.2-4.2 g/dL Normal GLOB 3.6 LAB L501.2000 0.9-2.4 RATIO Normal A/G 1.0 LAB L501.2200 8.5-10.1 mg/dL CA Normal 9.2 LAB L501.4100 15-37 U/L Normal AST 16 LAB L501.4305 45-117 U/L Normal ALK P 99 LAB L501.4405 16-61 U/L Normal ALT 32 LAB L501.4600 0.20-1.00 mg/dL T Normal BILI 0.20 LAB L501.5300 136-145 mmol/L NA Normal 142 LAB L501.5600 3.5-5.1 mmol/L K Normal 4.6 LAB L501.5900 98-107 mmol/L CL Normal 107 LAB L501.6100 21.0-32.0 mmol/L Normal CO2 30.0 LAB L501.6200 5-15 Normal GAP 5 Performed By: #### L500.4050, L501.9520 #### [facility] [address] [place], [place], [address] THYROID STIM HORMONE Collected: 06/15/2018 Status: F Source: PRIMROSE (TSH) 2:42 PM [facility] REPOSITORY TYPE CODE TESTS RESULT OUT OF RANGE REFERENCE UNITS LAB L501.9520 0.358-3.74 uIU/mL Normal TSH 2.54 Performed By: #### L500.4050, L501.9520 #### [facility] [address] [place], [address] DX LUMBOSACRAL SPINE Observed: 05/20/2018 Status: F Source: [facility] MIN 4 VIEWS 1:25 PM [facility]ALTH [facility] REPOSITORY Performed at [facility] APPROVED BY: Chandra Granda MD EXAM TITLE:DX LUMBOSACRAL SPINE MIN 4 VIEWS DATE:05/20/2018 13:19 COMPARISON: 05/20/2018 CT. CLINICAL INDICATION/HISTORY: Bilateral lower extremity pain and numbness, low back pain TECHNIQUE: AP and addition to neutral/flexion/extension lateral views of the lumbar spine FINDINGS/ impression: No change in alignment with flexion or extension. No evidence of subluxation or fracture. Moderate degree of endplate degenerative changes L5-S1 level posterior spurs. Moderate degree of arterial calcifications of the aorta with iliac stent. Refer to CT for further diagnostic discussion CT LUMBAR SPINE W/O Observed: 05/20/2018 Status: F Source: [facility] 1:19 PM HEALTH SYSTEM REPOSITORY Performed at [facility] APPROVED BY: Arnoldo Gonzales MD EXAMINATION: CT LUMBAR SPINE WITHOUT CONTRAST CLINICAL HISTORY: Lumbar degenerative disc disease. M51.36. TECHNIQUE: Spiral, high resolution axial images were obtained from the thoracolumbar junction to the sacrum with sagittal and coronal planar reconstructions. MQ: [id number]_2 Dose-Length Product (DLP): 712.91 mGy*cm. CT Dose Reduction Employed: Automated exposure control (AEC) was used. COMPARISON: Lumbar spine 4 views 05/20/2018. CT abdomen and pelvis 12/05/2014. RESULT: Counting reference: Lumbosacral junction. For the purposes of this report, L4-5 is considered the level of the iliac crest. Alignment: L4-L5 and L5-S1 minimal retrolisthesis. Slight levoconvex curvature of the lumbar spine due to scoliosis or patient positioning. Bone marrow /fracture: No evidence of a lytic or blastic process in the visualized spine. No evidence of acute or chronic fracture. Paraspinal soft tissues: Bilateral renal calculi and left renal cyst are noted as seen on CT abdomen 12/05/2014. The paraspinal soft tissues planes are otherwise unremarkable. Lower thoracic spine: The visualized lower thoracic bony canal and foramina are patent. T12-L1: Canal and foramina are patent. L1-L2: Canal and foramina are patent. L2-L3: Canal and foramina are patent L3-L4: Mild diffuse disc bulging and facet joint/ligamentum flavum hypertrophy. Oilf-iv-segeegkh cyst canal stenosis. No neural foraminal narrowing. L4-L5: Minimal retrolisthesis. Mild diffuse disc bulging with bilateral facet joint and ligamentum flavum hypertrophy. Mild central canal stenosis. No neural foraminal narrowing. L5-S1: Minimal retrolisthesis. Disc space narrowing with endplate osteophyte formation. No significant central canal stenosis. Minimal facet joint arthrosis. Mild bilateral neural foraminal narrowing. Sacrum and iliac wings: The visualized sacrum and iliac wings are within normal limits. IMPRESSION: Multilevel lumbar degenerative disc disease and facet joint hypertrophy. L3-L4 mild modest canal stenosis. L4-L5 mild central canal stenosis. L5-S1 mild bilateral neural foramina. Minimal retrolisthesis at L4-L5 and L5-S1 levels. CBC W/DIFF, AUTOMATED Collected: 05/07/2018 Status: F Source: [facility] 10:49 AM [facility] REPOSITORY TYPE CODE TESTS RESULT OUT OF RANGE REFERENCE UNITS LAB L100.1000 4.4-11.0 K/mm3 Normal WBC 8.8 LAB L100.1200 4.6-6.2 M/mm3 Normal RBC 5.26 LAB L100.1300 13.0-16.5 g/dl High HGB 16.7 LAB L100.1400 40-54 % Normal HCT 49.8 LAB L100.1500 80-94 fL High MCV 94.7 LAB L100.1600 27.0-32.0 pg Normal MCH 31.7 LAB L100.1700 32-36 g/gl Normal MCHC 33.5 LAB L100.1810 11.6-14.6 % Normal RDW CV 14.1 LAB L100.1820 35.1-43.9 fl High RDW SD 48.0 LAB L100.1900 150-450 K/mm3 Normal PLT 297 LAB L100.2000 6.2-12.0 fl Normal MPV 9.4 LAB L100.2100 47-70 % Normal NEUT% 61.8 LAB L100.2200 19-41 % Normal LY% 26.1 LAB L100.2300 0-10 % Normal MONO% 9.1 LAB L100.2400 0-5 % Normal EO% 2.1 LAB L100.2500 0-1 % Normal BASO% 0.6 LAB L100.2550 0.0-0.9 % Normal IM GRAN % 0.300 Result Comment: IG% - Immature Granulocytes (promyelocytes, myelocytes and metamyelocytes) > 1% indicates that a LEFT SHIFT is Present. LAB L100.2620 2.0-7.7 X10 3/uL Normal Absolute Neut 5.4 LAB L100.2720 0.83-4.51 X10 3/ul Normal Absolute Lymph 2.29 Performed By: #### L100.0100 #### [facility] [address] [place], [address] BASIC METABOLIC Collected: 05/07/2018 Status: F Source: KATHY PROFILE (BMP) 10:49 AM [facility] REPOSITORY TYPE CODE TESTS RESULT OUT OF RANGE REFERENCE UNITS LAB L501.0100 74-106 mg/dL Normal GLU 103 Result Comment: Fasting Glucose result from 100 to 125 mg/dL suggests IMPAIRED HOMEOSTASIS per A.D.A. criteria. Please note revised GLUCOSE reference range effective 2017. LAB L501.1000 7-18 mg/dL High BUN 19 LAB L501.1100 0.70-1.30 mg/dL High CREAT,SERUM 1.72 Result Comment: The validity of the calculated GFR AND GFRAA in patients over 70 years has not been determined. Clinical correlation is essential. LAB L501.1110 >60 mL/min Low EST GFR 42 Result Comment: Non- GFR Calc LAB L501.1115 >60 mL/min Low EST GFR - AA 51 Result Comment: GFR Calc LAB L501.1300 10-20 RATIO Normal BUN/CRE 11.0 LAB L501.2200 8.5-10.1 mg/dL CA Normal 9.0 LAB L501.5300 136-145 mmol/L NA Normal 140 LAB L501.5600 3.5-5.1 mmol/L K Normal 4.2 Result Comment: Slight Hemolysis, Result may be falsely increased. LAB L501.5900 98-107 mmol/L Normal CL 106 LAB L501.6100 21.0-32.0 mmol/L Normal CO2 27.0 LAB L501.6200 5-15 Normal 7 GAP Performed By: #### L500.2500, L500.4100 #### [facility] [address] [place], [address] LIPID PROFILE Collected: 05/07/2018 Status: F Source: [facility] 10:49 AM [facility] REPOSITORY TYPE CODE TESTS RESULT OUT OF RANGE REFERENCE UNITS LAB L501.4900 200 mg/dL Normal CHOL 182 Result Comment: <200 mg/dL Desirable 200-240 mg/dL Borderline >240 mg/dL High Risk LAB L501.5000 mg/dL Normal TRIG 154 Result Comment: The drugs N-Acetylcysteine and Metamizole may falsely depress this assay. Serum Triglycerides Reference Interval Normal <150 mg/dL Borderline high 150 - 199 mg/dL High 200 - 499 mg/dL Very High > or = 500 mg/dL LAB L501.6400 mg/dL Normal HDL 41 Result Comment: The drugs N-Acetylcysteine and Metamizole may falsely depress this assay. Reference Range HDL <40 mg/dL Low HDL Cholesterol HDL >or= 60 mg/dL High HDL Cholesterol LAB L501.6500 0-130 mg/dL Normal LDL 110 LAB L501.6600 5-40 mg/dL Normal VLDL 31 Performed By: #### L500.2500, L500.4100 #### [facility] [address] [facility] [place], [address] SPINE LUMBAR Observed: 03/19/2018 Status: F Source: PRIMROSE (ROUTINE) 5:52 PM [facility] REPOSITORY [facility] Imaging Services [address] [place] [address] Spine Lumbar (Routine) MR#: [id number] Acct: [id number] Name: KARLOS BAZZI Rep #: [id number] : 1950 67 From: Andrew Kimbrough MD PCP: Karan Talbert MD Status: REG CLI Study: Spine Lumbar (Routine) Date of Exam: 03/19/18 Exam# [id number] Ordering Dr: Denise Dupree MD STUDY: MRI LUMBAR SPINE WITHOUT CONTRAST REASON FOR EXAM: Male, 67 years old. Pain radiating into both legs TECHNIQUE: Standardized fat and water weighted pulse sequences were obtained in the sagittal and axial planes. COMPARISON: None FINDINGS: T12-L1: Normal endplates. Normal disc height, hydration and morphology. Normal bilateral facet joints. Normal central canal and bilateral lateral recesses. Normal bilateral intervertebral neural foramina. Normal lumbar lordosis. There is no substantial scoliosis. Normal conus medullaris that terminates at the L1-2 level. L1-2: Normal endplates. Normal disc height, hydration and morphology. Normal bilateral facet joints. Normal central canal and bilateral lateral recesses. Normal bilateral intervertebral neural foramina. L2-3: Disc desiccation. Bulging annulus and bilateral facet hypertrophy without compressive sequelae. L3-4: Disc desiccation and L4 Schmorl's node. Bulging annulus and bilateral facet hypertrophy with severe right lateral recess stenosis and mass effect on the transiting right L4 nerve root. Mild bilateral foraminal stenoses. L4-5: Disc desiccation. Bulging annulus and bilateral facet hypertrophy with mild central canal stenosis and bilateral foraminal stenoses. L5-S1: Disc osteophyte complex and left facet hypertrophy with mild central canal stenosis and bilateral foraminal stenoses. Normal visualized sacral ala. Normal visualized paraspinous soft tissue structures. Bilateral renal cysts. MRI/Spine Lumbar (Routine) IMPRESSION: Multilevel degenerative disease as described. At L3-4, there is severe right lateral recess stenosis, with mass effect on the transiting right L4 nerve root. Electronically Signed: Andrew Kimbrough MD at 4:08 EDT Tel , Service support , CC: Iman Dupree MD; Karan Talbert MD Coil Winder Repair: Signed NCS AND/OR EMG Observed: 03/17/2018 Status: F Source: PRIMROSE PATIENT 10:22 AM [facility] REPOSITORY [facility] Pulmonary Services/Neurology [address] [place] [address] MR#: [id number] Acct: [id number] Name: KARLOS BAZZI Rep #: [id number] : 1950 67 From: Joel Lowe MD Referring Dr: Iman Dupree MD Status: REG CLI Ordering Dr: Date: Location: [facility] Sex: M C NCS and/or EMG Patient Report Ordering Doctor: Denise Dupree DATE OF SERVICE: 03/17/18 This is a bilateral lower extremity nerve conduction study in the left lower extremity EMG performed on this 67-year-old male who over the past 12 months has experienced pain in his knees as well as burning pain in his calves on both sides. He has no back pain. He has had numbness and tingling in both feet. On examination he does have severe hammertoe deformities bilaterally. Bilateral lower extremity sensory and motor nerve conduction studies are performed. The sural sensory responses are intact. The common peroneal motor response on the right distally is not obtainable, more proximally it appears normal. On the left side distally the common peroneal amplitude is low with very slow conduction velocities, this is also more normal proximally. The tibial motor responses bilaterally demonstrate slowed velocities and prolonged latencies. The tibial F waves are prolonged as his left common peroneal F-wave. H reflex latencies from the tibial nerves are reduced bilaterally. Left lower extremity needle electrode mammography is performed. Muscles evaluated included the extensor digitorum brevis, abductor hallucis, medial gastrocnemius, anterior tibialis, vastus lateralis and vastus medialis muscles. Distal muscles demonstrated large motor units however pathologic spontaneous activity and insertional activity was absent. More proximally the muscle activity was normal. 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 03/17/18 1022 <Electronically signed by Joel Lowe MD> Date Joel Lowe MD CC: Iman Dupree MD; Joel Lowe MD; Karan Talbert MD Date Dictated: 03/17/18 1007 Date Transcribed: 03/17/18 1007 Coil Winder Repair: NF Signed HEMOGLOBIN A1C Collected: 03/12/2018 Status: F Source: [facility] 10:48 AM [facility] REPOSITORY TYPE CODE TESTS RESULT OUT OF RANGE REFERENCE UNITS LAB L501.9985 4.2-6.3 % Normal HGB A1C 5.7 Performed By: #### L501.9985 #### [facility] [address] [place], [address] THYROID STIM HORMONE Collected: 03/12/2018 Status: F Source: [facility]ATH[facility] (TSH) 10:48 AM [facility] REPOSITORY TYPE CODE TESTS RESULT OUT OF RANGE REFERENCE UNITS LAB L501.9520 0.358-3.74 uIU/mL Normal TSH 1.75 Performed By: #### L501.9520, L505.7010 #### [facility] [address] [place], [address] RHEUMATOID FACTOR Collected: 03/12/2018 Status: F Source: [facility] 10:48 AM [facility] REPOSITORY TYPE CODE TESTS RESULT OUT OF RANGE REFERENCE UNITS LAB L505.7010 <15 IU/mL Normal RHEUMATOID FAC < 10.0 Performed By: #### L501.9520, L505.7010 #### [facility] [address] [place], [address] VITAMIN B12 Collected: 03/12/2018 Status: F Source: [facility] 10:48 AM [facility] REPOSITORY TYPE CODE TESTS RESULT OUT OF RANGE REFERENCE UNITS LAB L503.0105 211-911 pg/mL Normal Vitamin B12 381 Performed By: #### L503.0105 #### [facility] [address] [place], [place], [address] ANTINUCLEAR ANTIBODIES Collected: 03/12/2018 Status: F Source: [facility] DIRECT 10:48 AM [facility] REPOSITORY TYPE CODE TESTS RESULT OUT OF RANGE REFERENCE UNITS LAB L3100.5475 Negative Normal Negative JACKLYN-DIRECT Result Comment: Performed at: - [facility] [id number] Shaper Set Up Operator: Dwayne Meadows PhD, Phone: [phone] Performed By: #### L3100.5475, L3100.9100 #### [facility] (refer to report for specific site) refer to report for address and phone number SJOGREN'S ANTIBODIES Collected: 03/12/2018 Status: F Source: [facility] A/B 10:48 AM [facility] REPOSITORY TYPE CODE TESTS RESULT OUT OF RANGE REFERENCE UNITS LAB L3100.9200 0.0-0.9 AI Normal Anti-SS-A < 0.2 LAB L3100.9300 0.0-0.9 AI Normal Anti-SS-B < 0.2 Performed By: #### L3100.5475, L3100.9100 #### [facility] (refer to report for specific site) refer to report for address and phone number AUDREY + PROTEIN ELECT, Collected: 03/12/2018 Status: F Source: [facility] SERUM 10:48 AM [facility] REPOSITORY Order Comment: Is Patient Fasting? N TYPE CODE TESTS RESULT OUT OF RANGE REFERENCE UNITS LAB L3100.3500 6.0-8.5 g/dL Normal PROTEIN,TOTAL 6.5 LAB L3200.8811 344-0350 mg/dL Normal IMMUNO G 709 LAB L3200.1400 61-437 mg/dL Normal IMMUNO A 146 LAB L3200.1500 20-172 mg/dL Normal IMMUNOGL M 107 LAB L3200.1510 2.9-4.4 g/dL Normal ALBUMIN 3.6 LAB L3200.1520 0.0-0.4 g/dL Normal FCGKB-0-HSTH 0.3 LAB L3200.1530 0.4-1.0 g/dL Normal ZFQGD-2-MDJH 0.8 LAB L3200.1540 0.7-1.3 g/dL Normal BETA GLOBULIN 1.0 LAB L3200.1550 0.4-1.8 g/dL Normal GAMMA GLOBULIN 0.9 LAB L3200.1560 Normal M-SPIKE Result Comment: Not Observed LAB L3200.1570 2.2-3.9 g/dL Normal GLOBULIN, TOTAL 2.9 LAB L3200.1580 0.7-1.7 A/G Normal RATIO 1.3 LAB L3200.1590 . AUDREY Normal RESULT,S Comment Result Comment: No monoclonality detected. LAB L3200.1594 . Normal NOTE: Comment Result Comment: Protein electrophoresis scan will follow via computer, mail, or inventory associate delivery. Performed By: #### L3100.3425, L3300.1200, L3600.4025 #### [facility] (refer to report for specific site) refer to report for address and phone number ANCA Collected: 03/12/2018 Status: F Source: [facility] 10:48 AM [facility] REPOSITORY Order Comment: Is Patient Fasting? N TYPE CODE TESTS RESULT OUT OF RANGE REFERENCE UNITS LAB L3300.1225 Neg:<1:20 titer CYTOPLASMIC Normal Ab <1:20 LAB L3300.1250 Neg:<1:20 titer PERINUCLEAR Normal Ab <1:20 Result Comment: The presence of positive fluorescence exhibiting P-ANCA or C-ANCA patterns alone is not specific for the diagnosis of Jimmy's Granulomatosis (WG) or microscopic polyangiitis. Decisions about treatment should not be based solely on ANCA IFA results. The International ANCA Group Consensus recommends follow up testing of positive sera with both KY- 3 and MPO-ANCA enzyme immunoassays. As many as 5% serum samples are positive only by EIA. Ref. AM J Clin Pathol 1999;111:507-513. LAB L3300.1285 Neg:<1:20 titer Normal Atypical pANCA <1:20 Result Comment: The atypical pANCA pattern has been observed in a significant percentage of patients with ulcerative colitis, primary sclerosing cholangitis and autoimmune hepatitis. Performed at: [facility] [address] [id number] Shaper Set Up Operator: Dwayne Meadows PhD, Phone: [phone] Performed By: #### L3100.3425, L3300.1200, L3600.4025 #### [facility] (refer to report for specific site) refer to report for address and phone number AUDREY AND PE, Collected: 03/12/2018 Status: F Source: KATHY RANDOM UR 10:48 AM [facility] REPOSITORY Order Comment: Is Patient Fasting? N TYPE CODE TESTS RESULT OUT OF RANGE REFERENCE UNITS LAB L3600.4100 Not Estab. mg/dL Normal 12.1 PROTEIN,UR LAB L3600.4240 . % Normal 68.1 ALBUMIN,U LAB L3600.4340 . % Normal 3.2 ALPHA-1-RUY B,U LAB L3600.4440 . % Normal 8.4 ALPHA-2-RUY B,U LAB L3600.4540 . % Normal BETA 13.0 GLOB,U LAB L3600.4640 . % Normal GAMMA 7.3 GLOB,U LAB L3600.4740 Not Observed % Normal Not Observed M-SPIKE,UR% LAB L3600.4775 . Normal AUDREY Comment RESULT,U Result Comment: No monoclonality detected. LAB L3600.4900 . Normal NOTE Comment Result Comment: Protein electrophoresis scan will follow via computer, mail, or inventory associate delivery. Performed By: #### L3100.3425, L3300.1200, L3600.4025 #### [facility] (refer to report for specific site) refer to report for address and phone number BRAIN WITHOUT Observed: 12/06/2017 Status: F Source: PRIMROSE CONTRAST 8:57 AM [facility] REPOSITORY [facility] [place] [address] Brain without Contrast MR#: [id number] Acct: [id number] Name: KARLOS BAZZI Rep #: [id number] : 1950 M 67 From: Russell Johnson MD PCP: Karan Talbert MD Status: REG CLI Study: Brain without Contrast Date of Exam: 12/06/17 Exam# [id number] Ordering Dr: Denise Dupree MD STUDY: MRI BRAIN WITHOUT CONTRAST REASON FOR EXAM: Male, 67 years old. Trauma head trauma TECHNIQUE: Standardized multiplanar fat and water weighted pulse sequences were obtained. COMPARISON: None. FINDINGS: The pituitary and pineal regions are normal. The brainstem is normal. The 7th and 8th nerve complexes are normal. Both cerebellopontine angles are clear. The cerebellar vermis and lobes are normal. The ventricles, basal cisterns and cortical sulci are normal with no midline shift and no intra or extra-axial hemorrhage or tumor mass. There is no acute infarction. The calvarium is intact. There are no skull swelling. The vessels at the base of the brain are normal. The orbits and mastoid air cells are normal. There are mild inflammatory changes involving the maxillary sinuses MRI/Brain without Contrast IMPRESSION: No acute findings in the brain. Mild inflammatory changes involving the maxillary sinuses Electronically Signed: Russell Johnson, at 22:48 EST Tel , Service support , CC: Iman Dupree MD; Karan Talbert MD Coil Winder Repair: Signed ALLERGIES ALLERGIES DATE TYPE / CODE NAME / CODE REACTION SEVERITY SOURCE 06/11/2018 Drug morphine/[id number] Other Unknown [place] Allergy/416 1545(RXNORM) [facility] 389824([facility] Hospital ED CT) Repository 10/01/2016 DRUG MORPHINE INTOLERANCE [facility] INGREDI/419 Other [place] [id number]([facility] Repository ED CT) [id number] [facility]ORPHINE [facility] Repository ENCOUNTERS ENCOUNTERS ADMIT/DISCHARGE ACCOUNT NUMBER ADMITTING ENCOUNTER LOCATION SOURCE CLASS 11/19/2018 [id number] Ambulatory [facility] ding:[id number] Repository 10/29/2018 [id number] Ambulatory [facility] ding:[facility] Repository 10/29/2018 [id number] Ambulatory [facility]: [facility] Repository 10/14/2018/10/16/20 [id number] [place], Inpatient [address] ding:[id number] Repository : DC232Sal: 1 10/14/2018 [id number] [place], Ambulatory BMSBuilding: [facility] [place] [facility] Repository 10/14/2018 [id number] [place], Ambulatory BMSBuilding: [facility] [place] [facility] Repository 10/14/2018 [id number] [place], Ambulatory BMSBuilding: [facility] [place] BMS.[facility] Repository 10/14/2018 [id number] [place], Ambulatory BMSBuilding: [facility] [place] [facility] [facility] Repository 10/14/2018 [id number] [place], Ambulatory BMSBuilding: Kathy Palomino BMS.CF.[facility] Repository 10/14/2018/10/16/20 [id number] Ambulatory BMSBuilding: Kathy [address] [place] [address] Repository 10/09/2018 [id number] Ambulatory [facility] ding:MTRAD Repository 09/08/2018 [id number] Inpatient [facility] Repository ng:H.SD 08/03/2018 [id number] Ambulatory [facility] ding:CT Repository 06/23/2018 [id number] Ambulatory [facility] ding:CVS Repository 06/15/2018 [id number] Ambulatory [facility] ding:MFPLAB Repository 06/11/2018/06/11/20 [id number] Ambulatory BMSBuilding: Ada 18 [facility] Repository 05/20/2018/05/20/20 [id number] Ambulatory [address] Other [place] Repository 05/20/2018/05/20/20 [id number] Ambulatory [address] MEDICAL Repository CENTERBuildi ng:AKXRC 05/20/2018/05/20/20 [id number] Ambulatory [address] Other [place] Repository 05/20/2018/05/20/20 [id number] Ambulatory [address] MEDICAL Repository CENTERBuildi ng:AKCT 05/07/2018 [id number] Ambulatory [facility] ding:MFPLAB Repository 03/19/2018 [id number] Ambulatory [facility] ding:MRI Repository 03/17/2018 [id number] Ambulatory [facility] ding:PSN Repository 03/12/2018 [id number] Ambulatory [facility] ding:LAB Repository 12/06/2017 [id number] [facility] ding:MRI Repository PAYERS PAYERS ENCOUNTER GUARANTOR PAYER SUBSCRIBER SOURCE 11/19/2018 KARLOS S Primary KARLOS S Kathy [id number] Insurance:MEDICARE COLUMBUSDOB: [facility] PART A BPolic Number: [id number], [place] [id number] Repository 38234Mpu: 330) Date:2018-11-19 [phone] () 11/19/2018 Secondary KARLOS S Kathy Insurance:AETNA SR PICKARDB: [facility] [id number] Hospital Number: Repository [id number] Date:9875-47-73DUQEC SENIOR SUPPLEMENT [address] [place] [address]TL: 11/19/2018 Tertiary NOT GIVENUNK Kathy Insurance:SELF PAY [facility]: Effective Repository Date:2018-11-19 10/29/2018 KARLOS S Primary KARLOS S Ada [id number] Insurance:MEDICARE MILLERDOB: [place] PART A BPolicy Number: [id number] [id number] Repository 12745Amm: (330) Date:2018-10-12 [phone] () 10/29/2018 Secondary KARLOS S Kathy Insurance:AETNA SR MILLERDOB: Community SUPPLEMENT INSPolicy [id number] Hospital Number: Repository [id number] Date:9396-92-83VNCCE SENIOR SUPPLEMENT [address] [place] [address]DG: 10/29/2018 Tertiary NOT GIVENUNK Ada Insurance:SELF PAY [facility] Hospital Number: Effective Repository Date:2018-10-12 10/29/2018 KARLOS S Primary KARLOS S Ada [id number] Insurance:MEDICARE MILLERDOB: [place] PART A BPolicy Number: [id number], [place] [id number] Repository 75212Gsv: (330) Date:2018-10-12 [phone] () 10/29/2018 Secondary KARLOS S Kathy Insurance:AETNA SR MILLERDOB: Community SUPPLEMENT INSPolic [id number] Hospital Number: Repository [id number] Date:5738-96-33PQXBN SENIOR SUPPLEMENT [address] [place] [address]EB: 10/29/2018 Tertiary NOT GIVENUNK Kathy Insurance:SELF PAY [facility] Number: Effective Repository Date:2018-10-29 10/14/2018 KARLOS S Primary KARLOS S Ada [id number] Insurance:MEDICARE MILLERDOB: [place] PART A BPolicy Number: [id number], [place] [id number] Repository 513[address]Oof: (330) Date:2018-10-14 [phone] () 10/14/2018 Secondary KARLOS S Ada Insurance:AETNA SR MILLERDOB: Community SUPPLEMENT INSPolicy [id number] Hospital Number: Repository [id number] Date:8881-22-71NLLDR SENIOR SUPPLEMENT [id number] [place] [address]LW: 10/14/2018 Tertiary NOT GIVENUNK Kathy Insurance:SELF [facility] Effective Repository Date:2018-10-14 10/14/2018 KARLOS S Primary KARLOS S Kathy [id number] Insurance:MEDICARE MILLERDOB: [place] PART A BPolicy Number: [id number], [place] [id number] Repository 17577Hpw: 330) Date:2018-10-14 [phone] () 10/14/2018 Secondary KARLOS S Kathy Insurance:AETNA SR MILLERDOB: Community SUPPLEMENT INSPolic [id number] Hospital Number: Repository [id number] Date:0418-32-54ZYTRH SENIOR SUPPLEMENT [address] [address]FDWREVX[place], [place] [address]VE: 10/14/2018 Tertiary NOT GIVENUNK Kathy Insurance:SELF PAY [facility] Number: Effective Repository Date:2018-10-14 10/14/2018 KARLOS S Primary KARLOS S Ada [id number] Insurance:MEDICARE MILLERDOB: [place] PART A BPolicy Number: [id number], [place] [id number] Repository [address]15[address]Iap: 330) Date:2018-10-14 [phone] (HP) 10/14/2018 Secondary KARLOS S Kathy Insurance:AETNA SR MILLERDOB: Community SUPPLEMENT INSPolicy [id number] Hospital Number: Repository [id number] Date:7539-67-40FJGIF SENIOR SUPPLEMENT [address] [address]ASHDNXVSG, [place] [address]BK: 10/14/2018 Tertiary NOT GIVENUNK Ada Insurance:SELF PAY [facility] Number: Effective Repository Date:2018-10-14 10/14/2018 KARLOS S Primary KARLOS S Ada [id number] Insurance:MEDICARE MILLERDOB: [place] PART A BPolicy Number: [id number], [place] [id number] Repository 96911Qno: (330) Date:2018-10-14 [phone] () 10/14/2018 Secondary KARLOS S Kathy Insurance:AETNA SR MILLERDOB: Community SUPPLEMENT [facility] [id number] Hospital Number: Repository [id number] Date:2246-29-23XHASX SENIOR SUPPLEMENT [address] [place] [address]KM: 10/14/2018 Tertiary NOT GIVENUNK Ada Insurance:SELF PAY [facility] Number: Effective Repository Date:2018-10-14 10/14/2018 KARLOS S Primary KARLOS S Ada [id number] Insurance:MEDICARE MILLERDOB: [place] PART A BPolicy Number: [id number], [place] [id number] Repository 35[address]Eco: 330) Date:2018-10-14 [phone] () 10/14/2018 Secondary KARLOS S Ada Insurance:AETNA SR MILLERDOB: Community SUPPLEMENT [facility] [id number] Hospital Number: Repository [id number] Date:8833-33-23FPULA SENIOR SUPPLEMENT [address] [place] [address]XO: 10/14/2018 Tertiary NOT GIVENUNK Ada Insurance:SELF PAY [facility] Number: Effective Repository Date:2018-10-14 10/14/2018 KARLOS S Primary KARLOS S Ada [id number] Insurance:MEDICARE MILLERDOB: [place] BPolicy Number: [id number], [place] [id number] Repository 465[address]Eno: (330) Date:2018-10-14 [phone] () 10/14/2018 Secondary KARLOS S Ada Insurance:AETNA SR MILLERDOB: Community SUPPLEMENT INSPolicy [id number] Hospital Number: Repository [id number] Date:3657-34-71SGFIS SENIOR SUPPLEMENT [address] [address]WZBDIIDSE, [place] [address]PL: 10/14/2018 Tertiary NOT GIVENUNK Kathy Insurance:SELF PAY [facility] Number: Effective Repository Date:2018-10-14 10/14/2018 KARLOS S Primary KARLOS S Kathy [id number] Insurance:MEDICARE MILLERDOB: [place] BPolicy Number: [id number], [place] [id number] Repository 68099Gkv: (158) Date:2018-10-14 [phone] () 10/14/2018 Secondary KARLOS S Ada Insurance:AETNA SR MILLERDOB: Community SUPPLEMENT [facility] [id number] Hospital Number: Repository [id number] Date:5636-69-89EJFXC SENIOR SUPPLEMENT [address] [address]TJAXAWXUU, [place] [address]TF: 10/14/2018 Tertiary NOT GIVENUNK Ada Insurance:SELF PAY [facility] Number: Effective Repository Date:2018-10-14 10/09/2018 KARLOS S Primary KARLOS S Ada [id number] Insurance:MEDICARE MILLERDOB: [place] BPolicy Number: [id number], [place] [id number] Repository 84033Jfo: 330) Date:2018-10-09 [phone] () 10/09/2018 Secondary KARLOS S Ada Insurance:AETNA SR MILLERDOB: Community SUPPLEMENT [facility] [id number] Hospital Number: Repository [id number] Date:2498-86-42SOWHU SENIOR SUPPLEMENT [address] [address]SXMOXIXCU, [place] [address]RR: 10/09/2018 Tertiary NOT GIVENUNK Ada Insurance:SELF PAY [facility] Number: Effective Repository Date:2018-10-09 09/08/2018 KARLOS Primary KARLOS MILLERUNK [facility] [id number] [facility] [place] Number: Repository [place], [place] [id number] [address]59[address]Ujh: (330) Date:2014-08-03[phone] () 101[address]JBHG CODE KL322XAHGFMRZ, [place] [address]VL: 09/08/2018 Secondary KARLOS MILLERUNK [facility] Insurance:[facility] CoPolicy Repository Number: [id number] Date:2018-02-01[address]WT [place] [address]XQ: 08/03/2018 KARLOS S Primary KARLOS S Kathy [id number] Insurance:MEDICARE MILLERDOB: [place] PART A BPolicy Number: [id number], [place] [id number] Repository 372[address]Oeg: 330) Date:2018-07-29 [phone] () 08/03/2018 Secondary KARLOS S Kathy Insurance:AETNA SR MILLERDOB: Community SUPPLEMENT INSPolic [id number] Hospital Number: Repository [id number] Date:9178-43-86BKEMI SENIOR SUPPLEMENT [address] [place] [address]FN: 08/03/2018 Tertiary NOT GIVENUNK Ada Insurance:SELF PAY [facility] Number: Effective Repository Date:2018-07-29 06/23/2018 KARLOS S Primary KARLOS S Ada [id number] Insurance:MEDICARE MILLERDOB: [place] BPolicy Number: [id number], [place] [id number] Repository 80677Ani: (330) Date:2018-06-04 [phone] () 06/23/2018 Secondary KARLOS S Kathy Insurance:AETNA SR MILLERDOB: Community SUPPLEMENT INSPolic [id number] Hospital Number: Repository [id number] Date:1553-07-22SWZGX SENIOR SUPPLEMENT [address] [place] [address]VB: 06/23/2018 Tertiary NOT GIVENUNK Ada Insurance:SELF PAY [facility] Number: Effective Repository Date:2018-06-04 06/15/2018 KARLOS SIMONE Primary KARLOS SIMONE Ada [id number] Insurance:MEDICARE MILLERDOB: [place] A BPolicy Number: [id number], [place] [id number] Repository 74411Dqs: (330) Date:2018-06-15 [phone] () 06/15/2018 Secondary KARLOS SIMONE Ada Insurance:AETNA SR MILLERDOB: Community SUPPLEMENT INSPolic [id number] Hospital Number: Repository [id number] Date:1855-35-66NXERK SENIOR SUPPLEMENT [address] [address]GOFEHOJFH, [place] [address]YD: 06/15/2018 Tertiary NOT GIVENUNK Ada Insurance:SELF PAY [facility] Number: Effective Repository Date:2018-06-15 06/11/2018 KARLOS SIMONE Primary KARLOS SIMONE Ada [id number] Insurance:MEDICARE MILLERDOB: [place] BPolicy Number: [id number], [place] [id number] Repository 519[address]Psw: 330) Date:2017-10-06 [phone] () 06/11/2018 Secondary KARLOS SIMONE Ada Insurance:AETNA SR MILLERDOB: Community SUPPLEMENT [facility] [id number] Hospital Number: Repository [id number] Date:9485-49-49IKLSB SENIOR SUPPLEMENT [address] [address]LMSENPZWL, [place] [address]GC: 06/11/2018 Tertiary NOT GIVENUNK Kathy Insurance:SELF PAY [facility] Number: Effective Repository Date:2017-10-06 05/20/2018 KARLOS S Primary KARLOS S [facility] MILLERDOB: Insurance:MEDICARE A MILLERDOB: [facility] [id number] AND BPolicy Number: [id number] [id number] [place] Date: [address]Nzg: () 05/20/2018 Secondary KARLOS S [facility] Insurance:AETNA MILLERDOB: [facility] MEDICARE [id number] Repository SUPPLEMENTPolicy Number: [id number] Date: 05/20/2018 KARLOS S Primary KARLOS S [facility] MILLERDOB: Insurance:MEDICARE A MILLERDOB: [facility] AND BPolicy Number: [id number] Repository SENEY [id number] [place], [place] Date: [address]Ncc: () 05/20/2018 Secondary KARLOS S [facility] Insurance:AETNA MILLERDOB: [facility] MEDICARE [id number] Repository SUPPLEMENTPolicy Number: [id number] Date: 05/07/2018 KARLOS SIMONE Primary KARLOS SIMONE Kathy [id number] Insurance:MEDICARE MILLERDOB[place] PART [place] BPolicy Number: [id number], [place] [id number] Repository 38402Zud: (348) Date:2018-05-07 [phone] () 05/07/2018 Secondary KARLOS SIMONE Kathy Insurance:AETNA MILLERDOB: Community SUPPLEMENT [facility] [id number] Hospital Number: Repository [id number] Date:9820-69-42EHYWC SENIOR SUPPLEMENT [address] [place] [address]TM: 05/07/2018 Tertiary NOT GIVENUNK Ada Insurance:SELF PAY [facility] Number: Effective Repository Date:2018-05-07 03/19/2018 KARLOS SIMONE Primary KARLOS SIMONE [place] [id number] Insurance:MEDICARE MILLERDOB: [place] PART A BPolicy Number: [id number], [place] [id number] Repository 246[address]Cgn: (115) Date:2018-03-12 [phone] () 03/19/2018 Secondary KARLOS SIMONE Kathy Insurance:AETNA SR MILLERDOB: Community SUPPLEMENT INSPolicy [id number] Hospital Number: Repository [id number] Date:7470-60-79ACVQP SENIOR SUPPLEMENT [address] [place] [address]BI: 03/19/2018 Tertiary NOT GIVENUNK Kathy Insurance:SELF PAY [facility] Number: Effective Repository Date:2018-03-12 03/17/2018 KARLOS SIMONE Primary KARLOS SIMONE Kathy [id number] Insurance:MEDICARE MILLERDOB: [place] PART A BPolicy Number: [id number], [place] [id number] Repository [address]Wah: (148) Date:2018-03-12 [phone] () 03/17/2018 Secondary KARLOS SIMONE Kathy Insurance:AETNA SR MILLERDOB: Community SUPPLEMENT INSPolicy [id number] Hospital Number: Repository [id number] Date:6558-91-53NIJGU SENIOR SUPPLEMENT [address]BFNMDXSY[address] [place] [address]PT: 03/17/2018 Tertiary NOT GIVENUNK Kathy Insurance:SELF PAY [facility] Number: Effective Repository Date:2018-03-12 03/12/2018 KARLOSADDIE WANG Primary KARLOS SIMONE Kathy [id number] Insurance:MEDICARE MILLERDOB: [place] PART A BPolicy Number: [id number], [place] [id number] Repository 92086Pqv: (330) Date:2018-03-12 [phone] () 03/12/2018 Secondary KARLOS SIMONE Kathy Insurance:AETNA SR MILLERDOB: Community SUPPLEMENT INSPolicy [id number] Hospital Number: Repository [id number] Date:6482-31-16PSZRD SENIOR SUPPLEMENT [address]YSXMSWHGM[address] [place] [address]RW: 03/12/2018 Tertiary NOT GIVENUNK Kathy Insurance:SELF PAY [facility] Number: Effective Repository Date:2018-03-12 12/06/2017 Karlos Wang Primary Karlos Chavez [id number] [facility] PART A BPolicy Number: [id number], [place] [id number] Repository 07[address]Rhj: 330) Date:2017-12-03 [phone] (HP) 12/06/2017 Secondary Karlos Chavez Insurance:AARPPolicadelia [facility] Number: [id number] Hospital [id number] Repository Date:1477-13-30[facility] 229725YBWRFQG, [place] [address]WD: 12/06/2017 Tertiary NOT GIVENJAMES Chavez Insurance:SELF PAY [facility] Number: Effective Repository Date:2017-12-03
== END 2018-10-16 09:54 | disposition home or self-care (01) | DRG 312 ==
LOC: ED 15:22 → ICU 20:28 → MS3 10-15 14:24
PROVIDERS: Internal Medicine Nephrology; Admitting Provider Hospitalist; Emergency Provider Emergency Medicine; Family Provider Family Medicine; PCP Family Medicine; Visit Provider Hospitalist
DX: I95.1 Orthostatic hypotension (principal); N17.9 Acute kidney failure, unspecified; E87.5 Hyperkalemia; E86.0 Dehydration; E78.5 Hyperlipidemia, unspecified; N18.3 Chronic kidney disease, stage 3 (moderate); I12.9 Hypertensive chronic kidney disease with stage 1 through stage 4 chronic kidney disease, or unspecified chronic kidney disease; I73.9 Peripheral vascular disease, unspecified; Z86.73 Personal history of transient ischemic attack (TIA), and cerebral infarction without residual deficits; Z79.02 Long term (current) use of antithrombotics/antiplatelets; Z85.828 Personal history of other malignant neoplasm of skin; Z85.51 Personal history of malignant neoplasm of bladder; Z87.891 Personal history of nicotine dependence
CPT/HCPCS: 36415; 71045; 76770; 80048; 80053; 80069; 81001; 82570; 83605; 83735; 84132; 84300; 84484; 85025; 85027; 87040; 93005; 93306; 97165; 97802; 99285; J7030; J7040; J7120; A4216

== ENCOUNTER → 2018-10-29 06:09 | Outpatient (CLI) | payer MEDICARE, OTHER, SELFPAY ==
[2018-10-14 21:40] VITALS: BMI 27.1
--- NOTE | 2018-10-29 13:27 | STRESSREP ---
Stress Test Report Date: 10/29/2018 Procedure: Pharmacologic stress nuclear imaging study Indications: Chest pain Consent: Per the patient Procedure: The patient underwent pharmacologic (Regadenoson) evaluation with a peak heart rate of 100 beats per minute (66 predicted maximal heart rate) and a peak blood pressure of 180/98 mmHg. The baseline ECG demonstrated normal sinus rhythm. The peak pharmacologic ECG demonstrated no obvious ECG changes. There were occasional PVCs pretest, during pharmacologic infusion, and recovery. There was no complaint of chest discomfort during pharmacologic infusion or recovery. The examination was discontinued secondary to completion of protocol. Impression: 1. Pharmacologic (Regadenoson) evaluation 2. Peak pharmacologic ECG with no obvious ECG changes. 3. There were occasional PVCs pretest, during pharmacologic infusion, and recovery. 4. Nuclear images pending Myocardial perfusion imaging study: Technique: The patient was injected with 14.4 millicuries of technetium 99m Cardiolite and subsequently rest SPECT Cardiolite nuclear imaging was obtained in the horizontal long, vertical long, and short axis views. The patient underwent pharmacologic (Regadenoson) evaluation with a peak heart rate of 100 beats per minute (66 % percent predicted maximal heart rate) and a peak blood pressure of 180/98 mmHg. The patient was injected with 44.1 millicuries of technetium 99m Cardiolite and subsequently stress SPECT Cardiolite nuclear imaging was obtained in the horizontal long, vertical long, and short axis views. A gated Cardiolite study at peak stress was obtained. Interpretation: Rest and stress SPECT Cardiolite nuclear imaging status post realignment, normalization, and attenuation correction demonstrate relative uniform tracer uptake in myocardial perfusion appearing within normal limits. There is end systolic thickening and brightening. The gated Cardiolite study demonstrates myocardial thickening and inward wall motion. The reported LVEF is 61%. Impression: 1. Rest and stress SPECT Cardiolite nuclear imaging demonstrate relative uniform tracer uptake and myocardial perfusion appearing within normal limits. 2. The gated Cardiolite study reports an LVEF of 61%. This note was generated with [employer] software. It may contain incorrect words, spelling, and punctuation that were not noted in checking the note before signing.
--- NOTE | 2018-10-29 13:32 | STRESSREP_ITS ---
Stress Test Report Date: 10/29/2018 Procedure: Pharmacologic stress nuclear imaging study Indications: Chest pain Consent: Per the patient Procedure: The patient underwent pharmacologic (Regadenoson) evaluation with a peak heart rate of 100 beats per minute (66 predicted maximal heart rate) and a peak blood pressure of 180/98 mmHg. The baseline ECG demonstrated normal sinus rhythm. The peak pharmacologic ECG demonstrated no obvious ECG changes. There were occasional PVCs pretest, during pharmacologic infusion, and recovery. There was no complaint of chest discomfort during pharmacologic infusion or recovery. The examination was discontinued secondary to completion of protocol. Impression: 1. Pharmacologic (Regadenoson) evaluation 2. Peak pharmacologic ECG with no obvious ECG changes. 3. There were occasional PVCs pretest, during pharmacologic infusion, and recovery. 4. Nuclear images pending Myocardial perfusion imaging study: Technique: The patient was injected with 14.4 millicuries of technetium 99m Cardiolite and subsequently rest SPECT Cardiolite nuclear imaging was obtained in the horizontal long, vertical long, and short axis views. The patient underwent pharmacologic (Regadenoson) evaluation with a peak heart rate of 100 beats per minute (66 % percent predicted maximal heart rate) and a peak blood pressure of 180/98 mmHg. The patient was injected with 44.1 millicuries of technetium 99m Cardiolite and subsequently stress SPECT Cardiolite nuclear imaging was obtained in the horizontal long, vertical long, and short axis views. A gated Cardiolite study at peak stress was obtained. Interpretation: Rest and stress SPECT Cardiolite nuclear imaging status post realignment, normalization, and attenuation correction demonstrate relative uniform tracer uptake in myocardial perfusion appearing within normal limits. There is end systolic thickening and brightening. The gated Cardiolite study demonstrates m yocardial thickening and inward wall motion. The reported LVEF is 61%. Impression: 1. Rest and stress SPECT Cardiolite nuclear imaging demonstrate relative uniform tracer uptake and myocardial perfusion appearing within normal limits. 2. The gated Cardiolite study reports an LVEF of 61%. This note was generated with [employer] software. It may contain incorrect words, spelling, and punctuation that were not noted in checking the note before signing.
== END ==
PROVIDERS: Family Provider Family Medicine; PCP Family Medicine; Referring Provider Family Medicine; Visit Provider Family Medicine
DX: R07.89 Other chest pain (principal)
CPT/HCPCS: 78452; 93017; A9500; A4216; J2785

== ENCOUNTER → 2018-11-19 12:07 | Outpatient (CLI) | payer MEDICARE, OTHER, SELFPAY ==
[2018-10-14 21:40] VITALS: BMI 27.1
[2018-11-19 14:14] LABS: Albumin, Serum 3.9 g/dL (3.2-5.0); BUN 31 mg/dL (7-18); BUN/Creat Ratio 18.5 RATIO (10-20); Calcium,Total 9.2 mg/dL (8.5-10.1); Chloride 108 mmol/L (98-107); Creatinine, Serum 1.68 mg/dL (0.70-1.30); EST Glomerular Filtration Rate 43 mL/min (>60); Est Glom Filt Rate - Afr Amer 52 mL/min (>60); Glucose 100 mg/dL (74-106); Phosphorus 2.3 mg/dL (2.5-4.9); Potassium 4.7 mmol/L (3.5-5.1); Sodium Level 139 mmol/L (136-145)
--- OUTSIDE RECORDS SUMMARY | 2019-01-24 04:08 | XMS RPT_ITS ---
:1950 Author Organization OHIP Support Name Relationship Address Phone ANNAMARIE BAZZI Unavailable [address] + [place] [address] R Unavailable Unavailable Unavailable BAZZI ANNAMARIE Unavailable [address] + [place] [address] R Unavailable Unavailable Unavailable BAZZI ANNAMARIE Unavailable [address] + [place] [address] R Unavailable Unavailable Unavailable BAZZI, ANNAMARIE Unavailable [address] + [place] [address] R Unavailable Unavailable Unavailable BAZZI, ANNAMARIE Unavailable [address] + [place] [address] R Unavailable Unavailable Unavailable BAZZI, ANNAMARIE Unavailable [address] + [place] [address] R Unavailable Unavailable Unavailable BAZZI, ANNAMARIE Unavailable [address] + [place] [address] R Unavailable Unavailable Unavailable BAZZI, ANNAMARIE Unavailable [address] + [place] [address] R Unavailable Unavailable Unavailable BAZZI, ANNAMARIE Unavailable [address] + [place] [address] R Unavailable Unavailable Unavailable BAZZI, ANNAMARIE Unavailable [address] + [place] [address] R Unavailable Unavailable Unavailable BAZZI, ANNAMARIE Unavailable [address] + [place] [address] R Unavailable Unavailable Unavailable BAZZI, ANNAMARIE Unavailable [address] + [place] [address] R Unavailable Unavailable Unavailable BAZZI, ANNAMARIE Unavailable [address] + [place] [address] R Unavailable Unavailable Unavailable BAZZI, ANNAMARIE Unavailable [address] + [place] [address] R Unavailable Unavailable Unavailable BAZZI, ANNAMARIE Unavailable [address] + [place] [address] R Unavailable Unavailable Unavailable R Unavailable Unavailable Unavailable LOC BAZZION Unavailable [address] + [place] [address] BAZZI, ANNAMARIE Unavailable [address] + [place] [address] R Unavailable Unavailable Unavailable LOC BAZZION Unavailable [address] + [place] [address] BAZZI, ANNAMARIE Unavailable [address] + [place] [address] R Unavailable Unavailable Unavailable LOC BAZZION Unavailable [address] + [place] [address] BAZZI, ANNAMARIE Unavailable [address] + [place] [address] R Unavailable Unavailable Unavailable LOC BAZZION Unavailable [address] + [place] [address] BAZZI, ANNAMARIE Unavailable [address] + [place] [address] R Unavailable Unavailable Unavailable LOC BAZZION Unavailable [address] + [place] [address] BAZZI, ANNAMARIE Unavailable [address] + [place] [address] R Unavailable Unavailable Unavailable Care Team Providers Name Role Phone YOLANDA STERLING Referring Unavailable YOLANDA STERLING Referring Unavailable Iban Olson Attending Unavailable No Family Physician given Primary Care Unavailable YOLANDA STERLING Referring Unavailable KARAN FUENTES Primary Care Unavailable YOLANDA STERLING Referring Unavailable GINA, KARAN Primary Care Unavailable Denise Dupree Attending Unavailable Denise Dupree Referring Unavailable Karan Talbert Primary Care Unavailable Karan Talbert Primary Care Unavailable Candelario Robb Admitting Unavailable Brenden Aguilar Attending Unavailable Sheryl Gomez Consulting Unavailable Jos Childs Consulting Unavailable Candelario Robb Admitting Unavailable Candelario Robb Attending Unavailable Karan Talbert Primary Care Unavailable Amadeo, Jos Consulting Unavailable Jason, Sheryl Consulting Unavailable Ashelfah, Ghasem Consulting Unavailable Agyepong, Candelario Admitting Unavailable Ashelfah, Ghasem Attending Unavailable Talbert, Karan Primary Care Unavailable Amadeo, Jos Consulting Unavailable Jason, Sheryl Consulting Unavailable Ashelfah, Ghasem Consulting Unavailable Agyepong, [...] Jos Consulting Unavailable Ashelfah, Ghasem Consulting Unavailable Talbert, Karan Attending Unavailable Talbert, Karan Referring Unavailable Talbert, Karan Primary Care Unavailable Stephan Arreguin Attending Unavailable Agyepong, Candelario Referring Unavailable Karan Perez Attending Unavailable Talbert, Karan Referring Unavailable Jason, Sheryl Attending Unavailable Talbert, Karan Primary Care Unavailable Leia, [...] Primary Care Unavailable Talbert, Karan Referring Unavailable PROBLEMS PROBLEMS DATE TYPE CONDITION / CODE ATTENDING STATUS SOURCE 11/19/2018 Unknown N18.3 - Chronic Sheryl Gomez Active [facility] kidney disease, [facility] stage 3 (moderate) / Hospital N18.3(ICD-10) Repository 11/17/2018 Unknown R07.9 - Chest pain, [place], Active [facility] unspecified / [facility] R07.9(ICD-10) Hospital Repository 11/04/2018 Unknown R55 - Syncope and Stephan Arreguin Active [facility] collapse / Community R55(ICD-10) Hospital Repository 10/09/2018 Unknown R07.89 - Other chest TalbertKaran malik Active [facility] pain / Community R07.89(ICD-10) Hospital Repository 09/08/2018 Admitting Unknown / Iban Olson Active [facility] Medical diagnosis UNK(Unknown) A. [place] Repository 06/15/2018 Unknown R10.9 - Unspecified TalbertKaran malik Active [facility] abdominal pain / Community R10.9(ICD-10) Hospital Repository 06/15/2018 Unknown R53.83 - Other TalbertKaran malik Active [facility] fatigue / Community R53.83(ICD-10) Hospital Repository 05/20/2018 Active Other intervertebral NA [facility] disc degeneration, Clinic Other lumbar region / [place] M51.36(ICD-10) Repository 05/07/2018 Unknown I10 - Essential Karan Talbert Active [place] (primary) [facility] hypertension / Hospital I10(ICD-10) Repository 05/07/2018 Unknown Z01.818 - Encounter Karan Talbert Active [place] for other [facility] preprocedural Hospital examination / Repository Z01.818(ICD-10) 12/26/2017 Unknown S02.2XXA - Fracture Leia, Active [facility] of nasal bones, Denise S. [facility] initial encounter Hospital for closed fracture Repository [...] CO2 23.0 Performed By: #### L500.3600 #### [facility] [address] [place], [address] STRESS REPORT Observed: 10/29/2018 Status: F Source: [place] 1:33 PM [facility] REPOSITORY [facility] Cardiovascular Services [address] [place] [address] MR#: [id number] Acct: [id number] Name: KARLOS BAZZI Rep #: [id number] : 1950 68 From: Karan Perez MD [...] of 61%. This note was generated with [employer] software. It may contain incorrect words, spelling, and punctuation that were not noted in checking the note before signing. 10/29/18 1333 <Electronically signed by Karan Perez MD> Date Karan Perez MD CC: Karan Talbert MD Date Dictated: 10/29/18 1327 Date Transcribed: 10/29/18 1327 Lube Man: PM Signed DISCHARGE SUMMARY Observed: 10/16/2018 Status: F Source: [place] 11:55 AM [facility] REPOSITORY [facility] Medical Records Department [address] [place] [address] Discharge Summary 10/16/18 1148 MR#: [id number] Acct: [id number] Name: KARLOS BAZZI Rep #: [id number] : 1950 68 From: Brenden Aguilar MD PCP: Karan Talbert MD Status: DIS IN Y Location: MS3 [id number] Discharge Date and Diagnosis Date of Admission: [...] Efrain Dominique MD at 15:43 EST Tel [phone], Service support , Renal Ultrasound 10/15/18 08:41 IMPRESSION: Bilateral renal cysts more prominent on the left side. Nonobstructive bilateral intrarenal calculi. Electronically Signed: Efrain Dominique MD at 14:18 EST Tel [phone], Service support , Dr. Gomez, nephrology. Dr. [...] 2 weeks. This note was generated with [employer] dictation software. It may contain incorrect words, [...] applicable Code Visit Inpatient E AND M: [id number] Disch Hosp 10/16/18 1155 <Electronically signed by Brenden Aguilar MD> Date Brenden Aguilar MD Cosigner Signature (if applicable): Date CC: Sheryl Gomez DO; Brenden Aguilar; Karan Talbert MD Signed 12 LEAD ELECTROCARDIOGRAM Observed: 10/16/2018 Status: F Source: [place] 9:20 AM [facility] REPOSITORY [facility] Cardiovascular Services [address] [place] [address] 12 Lead EKG 10/14/18 1534 MR#: [id number] Acct: [id number] Name: KARLOS BAZZI Rep #: [id number] : 1950 68 From: Maximiliano Kunz MD Attending Dr: Brenden Aguilar Status: ADM IN Ordering Dr: Yoan Vega MD Date: 10/14/18 Location: [facility] Sex: M C Admitted: 10/14/18 Test Reason [...] ECG Confirmed by MAXIMILIANO KUNZ MD ([id number]), editorial specialist MICHELLE BAZZI ([id number]) on 10/16/2018 9:19:58 AM Referred By: Karan Talbert Confirmed By:MAXIMILIANO KUNZ MD 10/16/18 0920 Date Maximiliano Kunz MD CC: Brenden Aguilar; Karan Talbert MD; Yoan Vega MD Signed DISCHARGE INSTRUCTION Observed: 10/16/2018 Status: F Source: [place] 9:16 AM [facility] REPOSITORY [facility] Medical Records Department [address] [place] [address] Instructions for Home/Discharge Instructions 10/16/18 0915 MR#: [id number] Acct: [id number] Name: KARLOS BAZZI Rep #: [id number] : 1950 68 From: Brenden Aguilar MD [...] weeks. 10/16/18 0916 <Electronically signed by Brenden Aguilar MD> Date Brenden Aguilar MD CC: Jos Childs MD; Sheryl Gomez DO; Karan Talbert MD CONSULTATION Observed: 10/16/2018 Status: F Source: [place] 6:02 AM [facility] REPOSITORY [facility] Medical Records Department [address] [place] [address] Consultation 10/15/18 0739 MR#: [id number] Acct: [id number] Name: KARLOS BAZZI Rep #: [id number] : 1950 68 From: Jos Childs MD PCP: Karan Talbert MD Status: ADM IN Location: [place] [id number] Problem List (1) Hypotension Status: Acute (2) [...] medical history listed below, who presented [facility]2018 secondary to an episode of unresponsiveness. Patient is a relatively poor historian. Patient reports he was of his usual health until he had a revision of a recent femoropopliteal bypass on September 08 at [facility]. Patient reports that ever since that [...] Efrain Dominique MD at 15:43 EST Tel [phone], Service support , Assessment/Plan Active and Suspected [...] perspective. Code Visit Inpatient E AND M: 69906 Init Hosp L2 10/16/18 0602 <Electronically signed by Jos Childs MD> Date Jos Childs MD Cosigner Signature (if applicable): Date CC: Jos Childs MD; Sheryl Gomez DO; Karan Talbert MD Signed CBC W/DIFF, AUTOMATED Collected: 10/16/2018 Status: F Source: [place] 5:50 AM [facility] REPOSITORY TYPE CODE TESTS RESULT OUT OF [...] Lymph 1.75 Performed By: #### L100.0100 #### [place] [facility] [address] [place], [address] RENAL PROFILE Collected: 10/16/2018 Status: F Source: [place] 5:50 AM [facility] REPOSITORY TYPE CODE TESTS RESULT OUT OF [...] CO2 23.0 Performed By: #### L500.3600 #### [facility] [address] [place], [address] BASIC METABOLIC Collected: 10/16/2018 Status: F Source: [place] PROFILE ([facility]) 12:43 AM [facility] REPOSITORY TYPE CODE TESTS RESULT OUT OF [...] 7 Performed By: #### L500.2500, L501.5200 #### [facility] [address] [place], [address] MAGNESIUM Collected: 10/16/2018 Status: F Source: [place] 12:43 AM [facility] REPOSITORY TYPE CODE TESTS RESULT OUT OF RANGE REFERENCE UNITS LAB L501.5200 1.6-2.6 mg/dL Normal MG 1.8 Performed By: #### L500.2500, L501.5200 #### [facility] [address] [place], [address] POTASSIUM Collected: 10/15/2018 Status: F Source: [place] 8:15 PM [facility] REPOSITORY TYPE CODE TESTS RESULT OUT OF RANGE REFERENCE UNITS LAB L501.5600 3.5-5.1 mmol/L Normal K 4.9 Performed By: #### L501.5600 #### [facility] [address] [place], [address] CONSULTATION Observed: 10/15/2018 Status: F Source: [place] 5:19 PM [facility] REPOSITORY [facility] Medical Records Department [address] [place] [address] Consultation 10/15/18830 MR#: [id number] Acct: [id number] Name: KARLOS BAZZI Rep #: [id number] : 1950 68 From: Sheryl Gomez DO PCP: Karan Talbert MD Status: ADM IN Y Location: [facility] [id number] Consultation - Renal 10/15/18 PCP/ Referring MD: Requesting physician: [] Primary care physician: Karan Talbert Reason for Consultation:: DAWN on ckd stage 3 - History of Present Illness History of Present Illness: The patient is a 68 year old M with a significant history of hypertension, bladder cancer status post surgery 20 years ago at [facility], PAD status post femoral bypass surgery and stent 15 yrs ago at [facility] then recently on 09/[address] Olson at [facility]. He continues to complain of cramps [...] Atorvastatin Calcium (Lipitor) 10 mg PO QHS [facility] Last Admin: 10/14/18 23:07 Dose: 10 mg Cilostazol (Pletal) 100 mg PO BIDAC [facility] Clopidogrel Bisulfate (Plavix) 75 mg PO DAILY@2200 [facility] Last Admin: 10/14/18 23:08 Dose: 75 mg Gabapentin (Neurontin) 400 mg PO X1 ONE Stop: 10/15/18 19:51 Last Admin: 10/14/18 20:04 Dose: 400 mg Gabapentin (Neurontin) 100 mg PO TIDCM [facility] Heparin Sodium (Porcine) (Heparin Na) 5,000 unit SC Q8 [facility] Last Admin: 10/15/18 06:55 Dose: 5,000 unit Sodium Chloride () 1,000 mls @ 100 mls/hr IV .Q10H YELENA Stop: 10/15/18 12:57 Last Admin: 10/14/18 22:10 Dose: 100 mls/hr Sodium Chloride () 250 mls @ 15 mls/hr IV .[id number] PRN PRN Reason: SALINE FLUSH Lactated Ringer's () 1,000 mls @ 100 mls/hr IV .Q10H [facility] Last Admin: 10/15/18 06:55 Dose: 100 mls/hr Magnesium Hydroxide (Milk Of Magnesia) 30 ml PO DAILY PRN PRN PRN Reason: Constipation Ondansetron HCl (Zofran) 4 mg IV Q8H PRN PRN PRN Reason: NAUSEA Pantoprazole Sodium (Protonix) 20 mg PO BID [facility] Last Admin: 10/14/18 23:08 Dose: 20 mg [...] Efrain Dominique MD at 14:18 EST Tel [phone], Service support , Assessment/Plan All Active Problems [...] 7. Tobacco use 8. Hyperlipidemia on statin 10/15/181718 <Electronically signed by Sheryl Gomez DO> Date Sheryl Gomez DO Cosigner Signature (if applicable): Date CC: Jos Childs MD; Sheryl Gomez DO; Karan Talbert MD Signed ECHOCARDIOGRAM COMPLETE Observed: 10/15/2018 Status: F Source: [place] 1:15 PM [facility] REPOSITORY [facility] Cardiovascular Services [address] [place] [address] Echo Complete 10/15/18813 MR#: [id number] Acct: [id number] Name: KARLOS BAZZI Rep #: [id number] : 1950 68 From: Stephan Arreguin MD [...] MD Date Dictated: 10/15/1814 Date Transcribed: 10/15/181314 Lube Man: Signed KIDNEY AND BLADDER Observed: 10/15/2018 Status: F Source: [place] 8:41 AM [facility] REPOSITORY [facility] Imaging Services [address] [place] [address] Kidney and Bladder MR#: [id number] Acct: [id number] Name: KARLOS BAZZI Rep #: [id number] : 1950 M 68 From: Efrain Dominique MD PCP: Karan Talbert MD Status: ADM IN Study: Kidney and Bladder Date of Exam: 10/15/18 Exam# [id number] Ordering Dr: Sheryl Gomez DO STUDY: RENAL [...] Efrain Dominique MD at 14:18 EST Tel [phone], Service support , CC: Sheryl Gomez DO; Karan Talbert MD Lube Man: Signed HISTORY AND PHYSICAL Observed: 10/15/2018 Status: F Source: [place] EXAM 7:38 AM [facility] REPOSITORY [facility] Medical Records Department [address] [place] [address] History and Physical 10/14/182007 MR#: [id number] Acct: [id number] Name: KARLOS BAZZI Rep #: [id number] : 1950 68 From: Candelario Robb MD [...] IV fluids. The case was discussed with net front end developer who agreed the patient should be admitted [...] IV hydration as above We will consult refuge worker. Urinary studies ordered. At emergency department he [...] Subcutaneous heparin. Code Visit Inpatient Ethel AND Kush: 84075 Init Hosp L3 10/15/18 0738 <Electronically signed by Candelario Robb MD> Date Candelario Robb MD Cosigner Signature: Date (if applicable) CC: Candelario Robb MD; Karan Talbert MD Signed CBC-COMPLETE BLOOD CNT Collected: 10/15/2018 Status: F Source: [place] NO DIFF 4:15 AM [facility] REPOSITORY TYPE CODE TESTS RESULT OUT OF [...] MPV 9.2 Performed By: #### L100.0500 #### [facility] [address] [place], [address] BASIC METABOLIC Collected: 10/15/2018 Status: F Source: [place] PROFILE (BMP) 4:15 AM [facility] REPOSITORY TYPE CODE TESTS RESULT OUT OF [...] 7 GAP Performed By: #### L500.2500 #### [facility] [address] [place], [address] EMERGENCY DEPARTMENT Observed: 10/15/2018 Status: F Source: [place] SUMMARY 1:05 AM [facility] REPOSITORY [facility] Medical Records Department [address] [place] [address] Emergency Department Summary 10/14/182033 MR#: [id number] Acct: [id number] Name: KARLOS BAZZI Rep #: [id number] : 1950 68 From: Yoan Vega MD [...] on September [address] Olson at [facility]. He states that since that time [...] Renal insufficiency. This note was generated with [employer] dictation software. It may contain incorrect words, [...] your Primary Care Provider. Call [facility] ([phone]) or report to the closest Emergency Room. Call 911 if necessary. 10/15/18 0105 <Electronically signed by Yoan Vega MD> Date Yoan Vega MD Cosigner Signature (If Indicated): Date CC: Karan Talbert MD BASIC METABOLIC Collected: 10/14/2018 Status: F Source: [place] PROFILE (BMP) 10:15 PM [facility] REPOSITORY TYPE CODE TESTS RESULT OUT OF [...] GAP 5 Performed By: #### L500.2500 #### [facility] [address] [place], [address] URINALYSIS, COMPLETE Collected: 10/14/2018 Status: F Source: [place] 6:35 PM [facility] REPOSITORY Order Comment: Order Date: 10/14/18 How was Urine Obtained? TECHNICAL ACCOUNT MANAGER TO SPECIFY TYPE CODE TESTS RESULT OUT [...] 0-5 SEEN Performed By: #### L400.0001 #### [facility] [address] [place], [place], [address] URINE SODIUM Collected: 10/14/2018 Status: F Source: [place] 6:35 PM [facility] REPOSITORY TYPE CODE TESTS RESULT OUT OF RANGE REFERENCE UNITS LAB L501.5500 Not Establ. mmol/L Normal UR NA 41 Performed By: #### L501.5500 #### [facility] [address] [place], [place], [address] CREATININE, URINE Collected: 10/14/2018 Status: F Source: [place] 6:35 PM [facility] REPOSITORY TYPE CODE TESTS RESULT OUT OF RANGE REFERENCE UNITS LAB L502.0300 NO RANGE EST. mg/dL Normal URINE 77.40 CREAT Performed By: #### L502.0300 #### [facility] [address] [place], [address] COMPREHENSIVE METABOLIC Collected: 10/14/2018 Status: F Source: [facility] 5:25 PM [facility] REPOSITORY Order Comment: 'TROP' Serial specimen #1, [...] GAP Performed By: #### L500.4050, L501.4010 #### [facility] [address] [place], [address] TROPONIN-I Collected: 10/14/2018 Status: F Source: [place] 5:25 PM [facility] REPOSITORY Order Comment: 'TROP' Serial specimen #1, #2, #3, or #4: 1 TYPE CODE TESTS RESULT OUT OF RANGE REFERENCE UNITS LAB L501.4010 <0.045 ng/mL Normal < 0.015 TROPONIN-I Result Comment: TROPONIN-I EXPECTED VALUES <0.045 Negative 0.045 - 0.590 Consistent with Cardiac Damage > OR = 0.600 Critical Value Not every elevated troponin is indicative of TX. These values should be used with clinical judgement in examining the patient's clinical picture for diagnosis. To establish a diagnosis of TX versus myocardial injury, there must be a demonstrated rise and/or fall in the troponin values, in addition to ischemic symptoms, EKG changes, new regional wall motion abnormality, and/or angiographical evidence. PLEASE NOTE: REFERENCE RANGES EDITED 18 Performed By: #### L500.4050, L501.4010 #### [facility] [place], [address] Observed: 10/14/2018 Status: F Source: [place] CULTURE, BLOOD (WB) 3:55 PM [facility] REPOSITORY NO ANAEROBIC BOTTLE RECEIVED BC No growth in 5 days. Performed By: #### M200.1000 #### [facility] [address] [facility] [place], [address] CBC W/DIFF, AUTOMATED Collected: 10/14/2018 Status: F Source: [place] 3:40 PM [facility] REPOSITORY TYPE CODE TESTS RESULT OUT OF [...] Lymph 1.83 Performed By: #### L100.0100 #### [facility] [address]. [place], [place], [address] LACTIC ACID Collected: 10/14/2018 Status: F Source: [place] 3:40 PM [facility] REPOSITORY Order Comment: Yes/No query for Sepsis Lactate Rule Y TYPE CODE TESTS RESULT OUT OF RANGE REFERENCE UNITS LAB L503.6005 0.4-2.0 mmol/L Normal LACTIC ACID 1.3 Performed By: #### L503.6005 #### [facility] [address] [place], [place], [address] Observed: 10/14/2018 Status: F Source: [place] CULTURE, BLOOD (WB) 3:40 PM [facility] REPOSITORY BC No growth in 5 days. Performed By: #### M200.1000 #### [facility] [address] [place], [place], [address] CHEST 1 VIEW Observed: 10/14/2018 Status: F Source: [place] (PORTABLE) 3:17 PM [facility] REPOSITORY [facility] Imaging Services [address] [place] [address] Chest 1 View (Portable) MR#: [id number] Acct: [id number] Name: KARLOS BAZZI Rep #: [id number] : 1950 M 68 From: Efrain Dominique MD PCP: Karan Talbert MD Status: REG ER Study: Chest 1 View (Portable) Date of Exam: 10/14/18 Exam# [id number] Ordering Dr: Yoan Vega MD STUDY: X-RAY [...] Efrain Dominique MD at 15:43 EST Tel [phone], Service support , CC: Karan Talbert MD; Yoan Vega MD Lube Man: Signed CHEST PA AND LATERAL Observed: 10/09/2018 Status: F Source: [place] 10:52 AM [facility] REPOSITORY [facility] Imaging Services [address] [place] [address] Chest PA and Lateral MR#: [id number] Acct: [id number] Name: KARLOS BAZZI Rep #: [id number] : 1950 M 68 From: Lan Souza DO PCP: Karan Talbert MD Status: REG CLI Study: Chest PA and Lateral Date of Exam: 10/09/18 Exam# [id number] Ordering Dr: Karan Talbert MD STUDY: X-RAY [...] disease or major interval change. Electronically Signed: Lan Souza DO at 18:41 EST Tel [phone], Service support , CC: Karan Talbert MD Lube Man: Signed CBC W/DIFF, AUTOMATED Collected: 10/09/2018 Status: F Source: [place] 10:47 AM [facility] REPOSITORY TYPE CODE TESTS RESULT OUT OF [...] Lymph 2.43 Performed By: #### L100.0100 #### [facility] [address] [place], [place], [address] BASIC METABOLIC Collected: 10/09/2018 Status: F Source: [place] PROFILE ([facility]) 10:47 AM [facility] REPOSITORY TYPE CODE TESTS RESULT OUT OF [...] GAP 8 Performed By: #### L500.2500 #### [facility] [address], [address] CBC Collected: 09/08/2018 Status: F Source: [facility] 9:15 AM [facility] REPOSITORY Order Comment: [place]: M TYPE CODE TESTS RESULT OUT OF RANGE REFERENCE UNITS LAB L200.37599 4.5-11.0 K/CU MM Normal WBC 7.8 LAB L200.76707 4.50-6.00 M/CU MM Normal RBC 4.89 LAB L200.09211 13.5-17.5 G/DL Normal HGB 15.0 LAB L200.74964 41.0-53.0 % Normal HCT 46.9 LAB L200.39382 80.0-99.0 fl Normal MCV 95.9 LAB L200.46692 32.0-36.0 GM/DL Normal MCHC 32.0 LAB L200.86922 11-14.5 Normal RDW 13.6 LAB L200.33752 9.4-12.4 Low MPV 9.0 LAB L200.26709 150-450 K/CU MM Normal PLT 260 LAB L200.17557 Less than 1 % Normal NRBC 0.0 Performed By: #### L200.51045 #### [facility] [address] [place] [address] RENAL Collected: 09/08/2018 Status: F Source: [facility] 9:15 AM [facility] REPOSITORY Order Comment: [place]: M TYPE CODE TESTS RESULT OUT OF RANGE REFERENCE UNITS LAB L500.04971 136-145 MMOL/L Normal NA 140 LAB L500.49465 3.5-5.1 MMOL/L Normal K 4.1 LAB L500.96342 98-107 MMOL/L Normal CL 107 LAB L500.88785 21-32 MMOL/L Normal CO2 27 LAB L500.16920 5-16 MMOL/L Normal AGAP 6 LAB L500.67232 70-100 MG/DL Normal GLU 84 Result Comment: 70-100- Normal Fasting; 100-125 Impaired Fasting; greater than 126 on more than one result- Diabetes. ADA guidelines. Results may be falsely elevated after the administration of Sulfapyridine. Results may be falsely depressed after the administration of Sulfasalazine. LAB L500.48513 7-26 MG/DL High BUN 35 LAB L500.98546 0.670-1.170 MG/DL High CREAT 1.780 Result Comment: Patients receiving either N-Acetylcysteine (NAC) or Metamizole prior to venipuncture, may have falsely depressed results. LAB L500.79862 15-24 Normal BUN/CREA 19 LAB L500.83803 3.2-5.0 GM/DL Normal ALBUMIN 3.6 LAB L500.99962 8.5-10.1 MG/DL Normal CALCIUM TOTAL 8.9 LAB L500.63304 2.5-4.9 MG/DL Normal PHOS 3.1 Performed By: #### L500.63006, L500.71146 #### [facility] [address] [place] [address] GFR EST Collected: 09/08/2018 Status: F Source: [facility] 9:15 AM [facility] REPOSITORY Order Comment: [place]: TYPE CODE TESTS RESULT OUT OF RANGE REFERENCE UNITS LAB L500.23593 ML/MIN Normal IF non-AFR 38 AMER LAB L500.18018 ML/MIN Normal IF 46 AMER Performed By: #### L500.29143, L500.34156 #### [facility] [address] [place] [address] OR Observed: 09/08/2018 Status: UNK Source: [facility] 8:01 AM [facility] REPOSITORY DATE OF SERVICE: 09/08/2018 PREOPERATIVE DIAGNOSIS: Peripheral artery disease. POSTOPERATIVE DIAGNOSIS: Peripheral artery disease. OPERATION: 1. Ultrasound guided access retrograde, left common femoral artery. 2. Aortogram with bilateral iliofemoral imaging. 3. Balloon angioplasty of the right common iliac stent with an 8 x 4 [place]. 4. Balloon angioplasty from the left common [...] the descending thoracic aorta, switched to a Price, and then a stiff Glidewire. We then put the stiff Glidewire, and brought a long 6 [place] sheath, did an aortogram. It showed some [...] ballooned this with an 8 x 4 [place] for over 2-1/2 minutes. Did a completion, [...] then brought to recovery in stable condition. [facility] NAME[facility] MEDICAL REC #: [id number] [place] [address] ADMIT DATE: DISCHARGE DATE: OPERATIVE REPORT ATTENDING PHY: Iban Olson MD SEDATION: This 68-year-old gentleman underwent moderate sedation given by Dr. Iban Olson. He was monitored with EKG, blood pressure and pulse and pulse oximetry for over 30 minutes of the procedure. He tolerated this well without difficulty. See the EMR for the more complete record. Iban Olson MD [id number] [facility] File#: [id number] Verified/Reviewed by 09/10/18 Cynthia HUGGINS [facility] PATIENT NAME: [facility] MEDICAL REC #: [id number] [place] [address] ADMIT DATE: DISCHARGE DATE: OPERATIVE REPORT ATTENDING PHY: Iban Olson MD LOW DOSE CT LUNG Observed: 08/03/2018 Status: F Source: [place] SCREENING 4:51 PM [facility] REPOSITORY [facility] Imaging Services [address] [place] [address] Lung Screening MR#: [id number] Acct: [id number] Name: KARLOS BAZZI Rep #: [id number] : 1950 M 67 From: Lan Souza DO PCP: Karan Talbert MD Status: REG CLI Study: Low Dose CT Lung Screening Date of Exam: 08/03/18 Exam# [id number] Ordering Dr: Karan Talbert MD STUDY: LOW [...] Lan Souza DO at 22:29 EDT Tel [phone], Service support , CC: Karan Talbert MD Lube Man: Signed LOWER EXT ARTERIAL Observed: 06/24/2018 Status: F Source: [facility] 8:42 AM [facility] REPOSITORY [facility] Cardiovascular Services [address] [place] [address] 06/24/18 0840 MR#: [id number] Acct: [id number] Name: KARLOS BAZZI Rep #: [id number] : 1950 67 From: Iban Olson MD Attending Dr: Iban Olson MD Status: REG CLI Ordering Dr: Date: 06/24/18 Location: [facility] Sex: M C Admitted: Arterial Study - [...] MD Date Dictated: 06/24/18839 Date Transcribed: 06/24/18839 Lube Man: GILMA Signed ARTERIAL DUPLEX US Observed: 06/24/2018 Status: F Source: [facility] 8:20 AM [facility] REPOSITORY [facility] Cardiovascular Services [address] [place] [address] Art Duplex US Bilat Lower Ext 06/23/18816 MR#: [id number] Acct: [id number] Name: KARLOS BAZZI Rep #: [id number] : 1950 67 From: Iban Olson MD Attending Dr: Iban Olson MD Status: REG CLI Ordering Dr: Iban Olson MD Date: 06/23/18 Location: [facility] Sex: M C Admitted: Reason For Study: [...] By: Horace Calderon RVT 06/24/18818 Date Iban Olosn MD CC: Iban Olson MD; Karan Talbert MD Date Dictated: 06/23/18816 Date Transcribed: 06/24/18818 Lube Man: Signed ABD AORTIC/IVC DUPLEX Observed: 06/24/2018 Status: F Source: [place] SCAN [facility] AM [facility] Cardiovascular Services [address] [place] [address] Abd Aortic/IVC Duplex scan 06/23/18 0803 MR#: [id number] Acct: [id number] Name: KARLOS BAZZI Rep #: [id number] : 1950 67 From: Iban Olson MD Attending Dr: Wesley FLEMING,Iban Status: REG CLI Ordering Dr: Iban Olson MD Date: 06/23/18 Location: [facility] Sex: M C Admitted: Reason For Study: [...] Olson MD; Karan Talbert MD Date Dictated: 06/23/18802 Date Transcribed: 06/24/18819 Lube Man: Signed CAROTID DUPLEX Observed: 06/24/2018 Status: F Source: [place] [facility] 8:18 AM [facility] REPOSITORY [facility] Cardiovascular Services [facility] [place] [address] Carotid Duplex Ultrasound 06/23/18 0849 MR#: [id number] Acct: [id number] Name: KARLOS BAZZI Rep #: [id number] : 1950 67 From: Iban Olson MD Attending Dr: Iban Olson MD Status: REG CLI Ordering Dr: Iban Olson MD Date: 06/23/18 Location: [facility] Sex: M C Admitted: Reason For Study: [...] the left vertebral artery. Procedure Carotid Duplex 30443. The exam was diagnostic. Exam performed in [...] MD Date Dictated: 06/23/1849 Date Transcribed: 06/24/18817 Lube Man: Signed CARDIOLOGY VISIT Observed: 06/17/2018 Status: F Source: [place] REPORT 11:51 AM [facility] REPOSITORY [facility] [place] [address] [facility]. 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 2. PAD (peripheral artery disease) I73.9 Woody - JARON Reaves Encourage patient to continue to follow with Dr. Olson regarding his peripheral vascular disease. 3. Pure hypercholesterolemia E78.00; E78.0 Plan - JARON Reaves Patient's lipids are adequately controlled on current medications. Recent lipid profile demonstrates total cholesterol of 22, HDL 41, LDL 110. Plan Detail Additional Comments - JARON Reaves The above patient was discussed with Dr. Kunz, he agrees with plan of care. Thank [...] prior to saving. Follow Up 1 Year ([facility]) Coding Level of Care Code Off vis,est,level [...] applicable) Maximiliano Kunz MD CC: Karan Talbert MD, ABD INC DECUB Observed: 06/15/2018 Status: F Source: [place] AND/OR ERECT 3:08 PM [facility] REPOSITORY [facility] Imaging Services [facility] [place] [address] Abd Inc Decub and/or Erect MR#: [id number] Acct: [id number] Name: KARLOS BAZZI Rep #: [id number] : 1950 M 67 From: Moustapha Bergeron DO PCP: Karan Talbert MD Status: REG CLI Study: Abd Inc Decub and/or Erect Date of Exam: 06/15/18 Exam# [id number] Ordering Dr: Karan Talbert MD STUDY: X-RAY [...] Moustapha Bergeron DO at 23:54 EDT Tel [phone], Service support , CC: Karan Talbert MD Lube Man: Signed CBC W/DIFF, AUTOMATED Collected: 06/15/2018 Status: F Source: [place] 2:42 PM [facility] REPOSITORY TYPE CODE TESTS RESULT OUT OF [...] Lymph 2.61 Performed By: #### L100.0100 #### [facility] [address] [place], [place], [address] COMPREHENSIVE METABOLIC Collected: 06/15/2018 Status: F Source: [facility] 2:42 PM [facility] REPOSITORY TYPE CODE TESTS RESULT OUT OF [...] 5 Performed By: #### L500.4050, L501.9520 #### [facility] [address] [place], [place], [address] THYROID STIM HORMONE Collected: 06/15/2018 Status: F Source: [place] (TSH) 2:42 PM [facility] REPOSITORY TYPE CODE TESTS RESULT OUT OF RANGE REFERENCE UNITS LAB L501.9520 0.358-3.74 uIU/mL Normal TSH 2.54 Performed By: #### L500.4050, L501.9520 #### [facility] [address] [place], [address] DX LUMBOSACRAL SPINE Observed: 05/20/2018 Status: F Source: [facility] MIN 4 VIEWS 1:25 PM [facility]ALTH SYSTEM [...] SPINE W/O Observed: 05/20/2018 Status: F Source: [facility] 1:19 PM [facility] REPOSITORY [...] disc bulging and facet joint/ligamentum flavum hypertrophy. Utgx-if-qypywqbi cyst canal stenosis. No neural foraminal narrowing. [...] 05/07/2018 Status: F Source: [place] 10:49 AM [facility] REPOSITORY TYPE CODE TESTS RESULT OUT OF [...] Lymph 2.29 Performed By: #### L100.0100 #### [facility] [address] [place], [address] BASIC METABOLIC Collected: 05/07/2018 Status: F Source: [place] PROFILE (BMP) 10:49 AM [facility] REPOSITORY TYPE CODE TESTS RESULT OUT OF [...] GAP Performed By: #### L500.2500, L500.4100 #### [facility] [address] [place], [place], [address] LIPID PROFILE Collected: 05/07/2018 Status: F Source: [place] 10:49 AM [facility] REPOSITORY TYPE CODE TESTS RESULT OUT OF [...] 31 Performed By: #### L500.2500, L500.4100 #### [facility] [address] [facility] [place], [address] SPINE LUMBAR Observed: 03/19/2018 Status: F Source: [place] (ROUTINE) 5:52 PM [facility] REPOSITORY [facility] Imaging Services [address] [place] [address] Spine Lumbar (Routine) MR#: [id number] Acct: [id number] Name: KARLOS BAZZI Rep #: [id number] : 1950 67 From: Andrew Kimbrough MD PCP: Karan Talbert MD Status: REG CLI Study: Spine Lumbar (Routine) Date of Exam: 03/19/18 Exam# [id number] Ordering Dr: Denise Dupree MD STUDY: MRI [...] CC: Iman Dupree MD; Karan Talbert MD Lube Man: Signed NCS AND/OR EMG Observed: 03/17/2018 Status: F Source: [place] PATIENT 10:22 AM [facility] REPOSITORY [facility] Pulmonary Services/Neurology [address] [place] [address] MR#: [id number] Acct: [id number] Name: BAZZIKARLOSAdelia WANG Rep #: [id number] : 1950 67 From: Joel Lowe MD Referring Dr: Iman Dupree MD Status: REG CLI Ordering Dr: Date: Location: [facility] Sex: M C NCS and/or EMG Patient [...] Dictated: 03/17/18 1007 Date Transcribed: 03/17/18 1007 Lube Man: NF Signed HEMOGLOBIN A1C Collected: 03/12/2018 Status: F Source: [place] 10:48 AM [facility] REPOSITORY TYPE CODE TESTS RESULT OUT OF RANGE REFERENCE UNITS LAB L501.9985 4.2-6.3 % Normal HGB A1C 5.7 Performed By: #### L501.9985 #### [facility] [place], [address] THYROID STIM HORMONE Collected: 03/12/2018 Status: F Source: [place] (TSH) 10:48 AM [facility] REPOSITORY TYPE CODE TESTS RESULT OUT OF RANGE REFERENCE UNITS LAB L501.9520 0.358-3.74 uIU/mL Normal TSH 1.75 Performed By: #### L501.9520, L505.7010 #### [facility] [address] [place], [place], [address] RHEUMATOID FACTOR Collected: 03/12/2018 Status: F Source: [place] 10:48 AM [facility] REPOSITORY TYPE CODE TESTS RESULT OUT OF RANGE REFERENCE UNITS LAB L505.7010 <15 IU/mL Normal RHEUMATOID FAC < 10.0 Performed By: #### L501.9520, L505.7010 #### [facility] [address] [place], [address] VITAMIN B12 Collected: 03/12/2018 Status: F Source: [place] 10:48 AM [facility] REPOSITORY TYPE CODE TESTS RESULT OUT OF RANGE REFERENCE UNITS LAB L503.0105 211-911 pg/mL Normal Vitamin B12 381 Performed By: #### L503.0105 #### [facility] [address] [place], [address] ANTINUCLEAR ANTIBODIES Collected: 03/12/2018 Status: F Source: [place] DIRECT 10:48 AM [facility] REPOSITORY TYPE CODE TESTS RESULT OUT OF RANGE REFERENCE UNITS LAB L3100.5475 Negative Normal Negative JACKLYN-DIRECT Result Comment: Performed at: - [facility] [id number] Chief Accounting Officer: Dwayne Meadows PhD, Phone: [phone] Performed By: #### L3100.5475, L3100.9100 #### [facility] (refer to report for specific site) refer to report for address and phone number SJOGREN'S ANTIBODIES Collected: 03/12/2018 Status: F Source: [place] A/B 10:48 AM [facility] REPOSITORY TYPE CODE TESTS RESULT OUT OF RANGE REFERENCE UNITS LAB L3100.9200 0.0-0.9 AI Normal Anti-SS-A < 0.2 LAB L3100.9300 0.0-0.9 AI Normal Anti-SS-B < 0.2 Performed By: #### L3100.5475, L3100.9100 #### [facility] (refer to report for specific site) refer to report for address and phone number AUDREY + ADRIÁN ELECT, Collected: 03/12/2018 Status: F Source: [place] SERUM 10:48 AM [facility] REPOSITORY Order Comment: Is Patient Fasting? N TYPE CODE TESTS RESULT OUT OF RANGE REFERENCE UNITS LAB L3100.3500 6.0-8.5 g/dL Normal PROTEIN,TOTAL 6.5 LAB L3200.7032 541-2503 mg/dL Normal IMMUNO G 709 LAB L3200.1400 61-437 mg/dL Normal IMMUNO A 146 LAB L3200.1500 20-172 mg/dL Normal IMMUNOGL M 107 LAB L3200.1510 2.9-4.4 g/dL Normal ALBUMIN 3.6 LAB L3200.1520 0.0-0.4 g/dL Normal JXMIO-2-KBKJ 0.3 LAB L3200.1530 0.4-1.0 g/dL Normal HHHBD-2-SFAT 0.8 LAB L3200.1540 0.7-1.3 g/dL Normal BETA [...] scan will follow via computer, mail, or school commissioner delivery. Performed By: #### L3100.3425, L3300.1200, L3600.4025 #### [facility] (refer to report for specific site) refer to report for address and phone number ANCA Collected: 03/12/2018 Status: F Source: [place] 10:48 AM [facility] REPOSITORY Order Comment: Is Patient Fasting? N [...] up testing of positive sera with both AR- 3 and MPO-ANCA enzyme immunoassays. As many as 5% serum samples are positive only by EIA. Ref. AM J Clin Pathol 1999;111:507-513. LAB L3300.1285 Neg:<1:20 titer Normal Atypical pANCA <1:20 Result Comment: The atypical pANCA pattern has been observed in a significant percentage of patients with ulcerative colitis, primary sclerosing cholangitis and autoimmune hepatitis. Performed at: [facility] [employer] [facility] [address] [id number] Chief Accounting Officer: Dwayne Meadows PhD, Phone: [phone] Performed By: #### L3100.3425, L3300.1200, L3600.4025 #### [facility] (refer to report for specific site) refer to report for address and phone number AUDREY AND PE, Collected: 03/12/2018 Status: F Source: [place] RANDOM UR 10:48 AM [facility] REPOSITORY Order Comment: Is Patient Fasting? N [...] scan will follow via computer, mail, or school commissioner delivery. Performed By: #### L3100.3425, L3300.1200, L3600.4025 #### [facility] (refer to report for specific site) refer to report for address and phone number BRAIN WITHOUT Observed: 12/06/2017 Status: F Source: [place] CONTRAST 8:57 AM [facility] REPOSITORY [facility] [place] [address] Brain without Contrast MR#: [id number] Acct: [id number] Name: KARLOS BAZZI Rep #: [id number] : 1950 M 67 From: Russell Johnson MD PCP: Karan Talbert MD Status: REG CLI Study: Brain without Contrast Date of Exam: 12/06/17 Exam# [id number] Ordering Dr: Denise Dupree MD STUDY: MRI [...] CC: Iman Dupree MD; Karan Talbert MD Lube Man: Signed ALLERGIES ALLERGIES DATE TYPE / CODE NAME / CODE REACTION SEVERITY SOURCE 06/11/2018 Drug morphine/R33505 Other Unknown [place] Allergy/416 1545(RXNORM) Community 110525([facility] ED CT) Repository 10/01/2016 DRUG MORPHINE INTOLERANCE [facility] INGREDI/419 Other [place] [address]([facility] Repository ED CT) NG/[id number] MORPHINE [facility] 6([facility]) Repository ENCOUNTERS ENCOUNTERS ADMIT/DISCHARGE ACCOUNT NUMBER ADMITTING ENCOUNTER LOCATION SOURCE CLASS 11/19/2018 [id number] [facility] ding:POLAB3 Repository 10/29/2018 [id number] [facility] ding:[facility] Repository 10/29/2018 [id number] Ambulatory BMSBuilding: [facility] Repository 10/14/2018/10/16/20 [id number] [place], Inpatient [address] ding:VE6Wekv Repository : GX447Tck: 1 10/14/2018 [id number] [place], Ambulatory BMSBuilding: [place] BMS.[facility] Repository 10/14/2018 [id number] [place], Ambulatory BMSBuilding: [place] BMS.[facility] Repository 10/14/2018 [id number] [place], Ambulatory BMSBuilding: a[place] BMS.[facility] Repository 10/14/2018 [id number] [place], Ambulatory BMSBuilding: [place] BMS.[facility] Repository 10/14/2018 [id number] [place], Ambulatory BMSBuilding: [place] BMS.[facility] Repository 10/14/2018/10/16/20 [id number] Ambulatory BMSBuilding: [place] [address] [place] [address] Repository 10/09/2018 [id number] [facility] ding:MTRAD Repository 09/08/2018 [id number] Inpatient [facility] Repository ng:H.SD 08/03/2018 [id number] [facility] ding:CT Repository 06/23/2018 [id number] [facility] ding:[facility] Repository 06/15/2018 [id number] [facility] ding:MFPLAB Repository 06/11/2018/06/11/20 [id number] Ambulatory BMSBuilding: [place] 18 BMS.[facility] Hospital Repository 05/20/2018/05/20/20 [id number] Ambulatory [address] Other [place] Repository 05/20/2018/05/20/20 [id number] Ambulatory [address] MEDICAL Repository CENTERBuildi ng:AKXRC 05/20/2018/05/20/20 [id number] Ambulatory [address] Other [place] Repository 05/20/2018/05/20/20 [id number] Ambulatory [address] MEDICAL Repository CENTERBuildi ng:AKCT 05/07/2018 [id number] [facility] ding:MFPLAB Repository 03/19/2018 [id number] [facility] ding:MRI Repository 03/17/2018 [id number] [facility] ding:PSN Repository 03/12/2018 [id number] [facility] ding:LAB Repository 12/06/2017 [id number] [facility] ding:MRI Repository PAYERS PAYERS ENCOUNTER GUARANTOR PAYER SUBSCRIBER SOURCE 11/19/2018 KARLOS S Primary KARLOS S [place] [id number] Insurance:MEDICARE MILLERDOB[facility] PART [facility] BPolicy Number: [id number], [place] [id number] Repository [address]Lhp: 330 Date:2018-11-19 [phone] () 11/19/2018 Secondary KARLOS S [place] Insurance:AETNA SR MILLERDOB: Community SUPPLEMENT INSPolicy [id number] Hospital Number: Repository [id number] Date:7678-04-11WWTIM SENIOR SUPPLEMENT [address], [place] [address]OL: 11/19/2018 Tertiary NOT GIVENUNK [place] Insurance:SELF PAY [facility] Number: Effective Repository Date:2018-11-19 10/29/2018 KARLOS S Primary KARLOS S [place] [id number] Insurance:MEDICARE MILLERDOB: [place] PART A BPolicy Number: [id number], [place] [id number] Repository [address]Ehc: (330) Date:2018-10-1201105 () 10/29/2018 Secondary KARLOS S [place] Insurance:AETNA SR MILLERDOB: Community SUPPLEMENT INSPolicy [id number] Hospital Number: Repository [id number] Date:5375-87-40AREPP SENIOR SUPPLEMENT [id number] [place] [address]CM: 10/29/2018 Tertiary NOT GIVENUNK [place] Insurance:SELF PAY [facility] Hospital Number: Effective Repository Date:2018-10-12 10/29/2018 KARLOS S Primary KARLOS S [place] [id number] Insurance:MEDICARE MILLERDOB: [place] PART A BPolicy Number: [id number], [place] [id number] Repository [address]Nra: (330) Date:2018-10-12 [phone] () 10/29/2018 Secondary KARLOS S [place] Insurance:AETNA SR MILLERDOB: Community SUPPLEMENT INSPolicy [id number] Hospital Number: Repository [id number] Date:4098-03-16DDZZQ SENIOR SUPPLEMENT [id number] [place] [address]TD: 10/29/2018 Tertiary NOT GIVENUNK [place] Insurance:SELF PAY [facility] Hospital Number: Effective Repository Date:2018-10-29 10/14/2018 KARLOS S Primary KARLOS S [place] [id number] Insurance:MEDICARE MILLERDOB: [place] PART A BPolicy Number: [id number], [place] [id number] Repository [address]Utv: (330) Date:2018-10-14 [phone] () 10/14/2018 Secondary KARLOS S [place] Insurance:AETNA SR MILLERDOB: Community SUPPLEMENT INSPolicy [id number] Hospital Number: Repository [id number] Date:9383-05-46KXYUG SENIOR SUPPLEMENT [address] [place] [phone]: 10/14/2018 Tertiary NOT GIVENUNK [place] Insurance:SELF PAY [facility] Hospital Number: Effective Repository Date:2018-10-14 10/14/2018 KARLOS S Primary KARLOS S [place] [id number] Insurance:MEDICARE MILLERDOB: [place] PART A BPolicy Number: [id number], [place] [id number] Repository [address]Ukd: 330) Date:2018-10-14 [phone] () 10/14/2018 Secondary KARLOS S [place] Insurance:AETNA SR MILLERDOB: Community SUPPLEMENT INSPolicy [id number] Hospital Number: Repository [id number] Date:1077-92-34GYORX SENIOR SUPPLEMENT [id number] [place] [address]UI: 10/14/2018 Tertiary NOT GIVENUNK [place] Insurance:SELF PAY [facility] Number: Effective Repository Date:2018-10-14 10/14/2018 KARLOS S Primary KARLOS S [place] [id number] Insurance:MEDICARE MILLERDOB: [place] PART A BPolicy Number: [id number], [place] [id number] Repository [address]Wpf: 330) Date:2018-10-14 [phone] () 10/14/2018 Secondary KARLOS S [place] Insurance:AETNA SR MILLERDOB: Community SUPPLEMENT INSPolicy [id number] Hospital Number: Repository [id number] Date:1477-16-75CYEDY SENIOR SUPPLEMENT [id number] [place] [address]SJ: 10/14/2018 Tertiary NOT GIVENUNK [place] Insurance:SELF PAY [facility] Hospital Number: Effective Repository Date:2018-10-14 10/14/2018 KARLOS S Primary KARLOS S [place] [id number] Insurance:MEDICARE MILLERDOB: [place] PART A BPolicy Number: [id number], [place] [id number] Repository [address]Ccm: (330) Date:2018-10-14 [phone] () 10/14/2018 Secondary KARLOS S [place] Insurance:AETNA SR MILLERDOB: Community SUPPLEMENT [facility] [id number] Hospital Number: Repository [id number] Date:7801-82-64ZAGNO SENIOR SUPPLEMENT [id number] [place] [phone]: 10/14/2018 Tertiary NOT GIVENUNK [place] Insurance:SELF PAY [facility] Number: Effective Repository Date:2018-10-14 10/14/2018 KARLOS S Primary KARLOS S [place] [id number] Insurance:MEDICARE MILLERDOB: [place] PART A BPolicy Number: [id number], [place] [id number] Repository [address]Toe: 330) Date:2018-10-14 [phone] () 10/14/2018 Secondary KARLOS S [place] Insurance:AETNA SR MILLERDOB: Community SUPPLEMENT [facility] [id number] Hospital Number: Repository [id number] Date:8841-53-78JRKNV SENIOR SUPPLEMENT [id number] [place] [address]EP: 10/14/2018 Tertiary NOT GIVENUNK [place] Insurance:SELF PAY [facility] Number: Effective Repository Date:2018-10-14 10/14/2018 KARLOS S Primary KARLOS S Kathy [id number] Insurance:MEDICARE MILLERDOB: [place] BPolicy Number: [id number], [place] [id number] Repository 97089Rvr: (330) Date:2018-10-14 [phone] () 10/14/2018 Secondary KARLOS S [place] Insurance:AETNA SR MILLERDOB: Community SUPPLEMENT INSPolicy [id number] Hospital Number: Repository [id number] Date:4108-91-17DZUGK SENIOR SUPPLEMENT [address], [place] [address]SL: 10/14/2018 Tertiary NOT GIVENUNK Kathy Insurance:SELF PAY [facility] Number: Effective Repository Date:2018-10-14 10/14/2018 KARLOS S Primary KARLOS S Kathy [id number] Insurance:MEDICARE MILLERDOB: Community [place] BPolicy Number: [id number], [place] [id number] Repository 82[address]Dln: 330) Date:2018-10-14 [phone] () 10/14/2018 Secondary KARLOS S [place] Insurance:AETNA SR MILLERDOB: Community SUPPLEMENT [facility] [id number] Hospital Number: Repository [id number] Date:3006-34-73NKKDV SENIOR SUPPLEMENT [address], [place] [address]XM: 10/14/2018 Tertiary NOT GIVENUNK [place] Insurance:SELF PAY [facility] Number: Effective Repository Date:2018-10-14 10/09/2018 KARLOS S Primary KARLOS S [place] [id number] Insurance:MEDICARE MILLERDOB: Community [place] BPolicy Number: [id number], [place] [id number] Repository [address]Azt: (330) Date:2018-10-09 [phone] () 10/09/2018 Secondary KARLOS S [place] Insurance:AETNA SR MILLERDOB: Community SUPPLEMENT INSPolicy [id number] Hospital Number: Repository [id number] Date:4611-98-73RODWT SENIOR SUPPLEMENT [address] [address], [place] [address]RN: 10/09/2018 Tertiary NOT GIVENUNK [place] Insurance:SELF PAY [facility]ly [facility] Hospital Number: Effective Repository Date:2018-10-09 09/08/2018 KARLOS Primary KARLOS MILLERUNK [facility] [id number] [facility] [place] cy Number: Repository [place], [place] [id number] [address]Lhy: (330) Date:2014-08-03[phone] () [id number] [place]433[place]QKK[place], [place] [address]QF: 09/08/2018 Secondary KARLOS [facility] Medical Insurance:[facility] Repository Number: [id number] Date:2018-02-01[address] [address]HL: 08/03/2018 KARLOS S Primary KARLOS S Kathy [id number] Insurance:MEDICARE MILLERDOB: [place] BPolicy Number: [id number], [place] [id number] Repository [address]Wqw: (330) Date:2018-07-29 [phone] () 08/03/2018 Secondary KARLOS S [place] Insurance:AET SR MILLERDOB: Community SUPPLEMENT INSPolicy [id number] Hospital Number: Repository [id number] Date:3789-99-62RSTSK SENIOR SUPPLEMENT [address] [address]BJBUEQIDD, [place] [address]IO: 08/03/2018 Tertiary NOT GIVENUNK Kathy Insurance:SELF PAY [facility] Hospital Number: Effective Repository Date:2018-07-29 06/23/2018 KARLOS S Primary KARLOS S [place] [id number] Insurance:MEDICARE MILLERDOB: [place] BPolicy Number: [id number], [place] [id number] Repository [address]Dpu: (330) Date:2018-06-04 [phone] (HP) 06/23/2018 Secondary KARLOS S [place] Insurance:AETNA SR MILLERDOB: Community SUPPLEMENT INSPolic [id number] Hospital Number: Repository [id number] Date:3043-62-29MQAHR SENIOR SUPPLEMENT [address] [address]LKMZVRIJY, [place] [address]OP: 06/23/2018 Tertiary NOT GIVENUNK Kathy Insurance:SELF PAY [facility] Number: Effective Repository Date:2018-06-04 06/15/2018 KARLOS SIMONE Primary KARLOS SIMONE [place] [id number] Insurance:MEDICARE MILLERDOB: [place] BPolicy Number: [id number], [place] [id number] Repository 49[address]Tlj: 330) Date:2018-06-15 [phone] () 06/15/2018 Secondary KARLOS SIMONE [place] Insurance:AETNA SR MILLERDOB: Community SUPPLEMENT [facility] [id number] Hospital Number: Repository [id number] Date:8505-18-79SFPGE SENIOR SUPPLEMENT [address] [address]PWQLUW[place], [place] [address]IO: 06/15/2018 Tertiary NOT GIVENUNK Kathy Insurance:SELF PAY [facility] Number: Effective Repository Date:2018-06-15 06/11/2018 KARLOS SIMONE Primary KARLOS SIMONE Kathy [id number] Insurance:MEDICARE MILLERDOB: Community [place] BPolicy Number: [id number], [place] [id number] Repository [address]Ukv: 330) Date:2017-10-06 [phone] () 06/11/2018 Secondary KARLOS SIMONE [place] Insurance:AETNA SR MILLERDOB: Community SUPPLEMENT [facility] [id number] Hospital Number: Repository [id number] Date:4491-65-92SWWCV SENIOR SUPPLEMENT [address] [address]EAQEZSUDG, [place] [address]EE: 06/11/2018 Tertiary NOT GIVENUNK Kathy Insurance:SELF PAY [facility] Number: Effective Repository Date:2017-10-06 05/20/2018 KARLOS S Primary KARLOS S [facility] MILLERDOB: Insurance:MEDICARE A MILLERDOB: [facility] [id number] AND BPolicy Number: [id number] [place] [id number] [place], [place] Date: [address]Ibp: () 05/20/2018 Secondary KARLOS S [facility] Insurance:AETNA MILLERDOB: [facility] MEDICARE [id number] Repository SUPPLEMENTPolicy Number: [id number] Date: 05/20/2018 KARLOS S Primary KARLOS S [facility] MILLERDOB: Insurance:MEDICARE A MILLERDOB: [facility] [id number] AND BPolicy Number: [id number] Repository [place] [id number] [place], [place] Date: [address]Aid: () 05/20/2018 Secondary KARLOS S [facility] Insurance:AETNA MILLERDOB: [facility] MEDICARE [id number] Repository SUPPLEMENTPolicy Number: [id number] Date: 05/07/2018 KARLOS SIMONE Primary KARLOS SIMONE Kathy [id number] Insurance:MEDICARE MILLERDOB: [place] BPolicy Number: [id number], [place] [id number] Repository [address]Xvz: (594) Date:2018-05-07 [phone] () 05/07/2018 Secondary KARLOS SIMONE Kathy Insurance:AETNA MILLERDOB: Community SUPPLEMENT INSPolic [id number] Hospital Number: Repository [id number] Date:0955-73-85NHBUY SENIOR SUPPLEMENT [address] [place] [address]EG: 05/07/2018 Tertiary NOT GIVENUNK Kathy Insurance:SELF PAY [facility] Number: Effective Repository Date:2018-05-07 03/19/2018 KARLOS SIMONE Primary KARLOS SIMONE Kathy [id number] Insurance:MEDICARE MILLERDOB: [place] BPolicy Number: [id number], [place] [id number] Repository [address]Zmu: ([phone]) Date:2018-03-12 [phone] () 03/19/2018 Secondary KARLOS SIMONE [place] Insurance:AETNA SR MILLERDOB: Community SUPPLEMENT INSPolicy [id number] Hospital Number: Repository [id number] Date:4127-14-13NZQJU SENIOR SUPPLEMENT [address] [place] [address]VM: 03/19/2018 Tertiary NOT GIVENUNK [place] Insurance:SELF PAY [facility] Hospital Number: Effective Repository Date:2018-03-12 03/17/2018 KARLOS SIMONE Primary KARLOS SIMONE [place] [id number] Insurance:MEDICARE MILLERDOB: Community [place] BPolicy Number: [id number], [place] [id number] Repository [address]Ykw: (330) Date:2018-03-12 [phone] () 03/17/2018 Secondary KARLOS SIMONE Kathy Insurance:AETNA SR MILLERDOB: Community SUPPLEMENT INSPolicy [id number] Hospital Number: Repository [id number] Date:4088-07-66ZCIBQ SENIOR SUPPLEMENT [address] [address]EDWDHHMRY, [place] [address]WR: 03/17/2018 Tertiary NOT GIVENUNK [place] Insurance:SELF PAY [facility] Number: Effective Repository Date:2018-03-12 03/12/2018 KARLOS SIMONE Primary KARLOS SIMONE Kathy [id number] Insurance:MEDICARE MILLERDOB: [place] BPolicy Number: [id number], [place] [id number] Repository [address]Ckv: (330) Date:2018-03-12 [phone] () 03/12/2018 Secondary KARLOS SIMONE [place] Insurance:AETNA SR MILLERDOB: Community SUPPLEMENT INSPolicy [id number] Hospital Number: Repository [id number] Date:1493-21-74IQZDX SENIOR SUPPLEMENT [address] [address]IMJTRPMOJ, [place] [address]YE: 03/12/2018 Tertiary NOT GIVENUNK [place] Insurance:SELF PAY [facility] Hospital Number: Effective Repository Date:2018-03-12 12/06/2017 Karlos Wang [place] [id number] [facility] PART A BPolicy Number: [id number], [place] [id number] Repository [address]Nmf: 330) Date:2017-12-03 [phone] () 12/06/2017 Secondary Karlos Chavez [facility] Number: [id number] Hospital [id number] Repository Date:3136-14-88XV [facility] [address]CDRSRY, [place] [address]OT: 12/06/2017 Tertiary NOT GIVENJAMES [place]avez Insurance:SELF PAY [facility] Number: Effective Repository Date:2017-12-03
== END ==
PROVIDERS: Family Provider Family Medicine; PCP Family Medicine; Visit Provider Internal Medicine Nephrology
DX: N18.3 Chronic kidney disease, stage 3 (moderate) (principal)
CPT/HCPCS: 36415; 80069

== ENCOUNTER 2019-01-30 20:27 | Emergency (ER) | payer MEDICARE, OTHER, SELFPAY ==
[2018-10-14 21:40] VITALS: BMI 27.1
[2019-01-30] VITALS (7 sets, daily range): BP systolic 90–142; BP diastolic 55–79; PULSE 80–92; RESP 15–18; TEMP 36.7–37.2; O2SAT 96–98; BMI 25.7
--- NOTE | 2019-01-30 20:54 | ED.RN ---
RN CALLED FOR EKG, PULLED OLD EKGS FOR
--- NOTE | 2019-01-30 20:57 | EKG12_ITS ---
Test Reason : SOB/PALPITATIONS Blood Pressure : / mmHG Vent. Rate : 083 BPM Atrial Rate : 083 BPM P-R Int : 162 ms QRS Dur : 094 ms QT Int : 380 ms P-R-T Axes : 047 016 054 degrees QTc Int : 446 ms Normal sinus rhythm Possible Inferior infarct (cited on or before 14-OCT-2018), age undetermined Abnormal ECG Confirmed by JOHANNE BLAND MD ([id number]), video effects editor DIEGO VICTOR ([id number]) on 02/02/2019 1:13:03 PM Referred By: ALEXANDRIA/CRISTHIAN Confirmed By:JOHANNE BLAND MD
--- NOTE | 2019-01-30 21:00 | RAD_ITS ---
STUDY: X-RAY CHEST REASON FOR EXAM: Male, 68 years old. Low blood pressure. TECHNIQUE: Portable chest. COMPARISON: 10/14/2018. FINDINGS: The lungs are somewhat hyperinflated, with hyperlucency in the upper lobes consistent with emphysema. No change compared to the prior study. There is no demonstrated pleural abnormality. Normal size heart. Normal mediastinum and debra. Normal visualized pulmonary arteries. Normal visualized aortic arch and descending thoracic aorta. Normal visualized thoracic spine. Normal visualized ribs, clavicles, and shoulders. There is no demonstrated abnormality of the visualized soft tissue structures of the upper abdomen. RAD/Chest 1 View (Portable) IMPRESSION: 1. No acute findings. 2. COPD. Electronically Signed: Louisa Delgadillo MD at 22:59 EDT Tel , Service support ,
[2019-01-30] MEDS: 0.9% Normal Saline 1,000 ML 999 ML IV (21:02)
--- NOTE | 2019-01-30 21:05 | ED.VISSUMM ---
- ER Visit Summary Date of Service: 01/30/19 Chief Complaint: dizziness and low blood pressure History of Present Illness: The patient is a 68 M who presents for dizziness and presyncope. Patient states today he has felt very dizzy and has had episodes where he felt like he was going to pass out. He took his blood pressure and it was in the 50s systolic. Some times are worse when standing and improved if sitting down. Patient denies any fever, chest pain, shortness of breath, abdominal pain, nausea or vomiting, neck or back pain, headache or any other associated complaints. He had a similar episode in October and was admitted at that time for workup for his low blood pressure. Patient has history of chronic dizziness, but symptoms today are much worse. No history of coronary artery disease. No history of lung disease. No diabetes. Patient was taken off all his blood pressure medications at his last admission, but is still having symptoms. Patient was noted in triage to have a blood pressure of 70 systolic. Physical Examination: Vital signs: afebrile, blood pressure 96/70 after IV fluids, no hypoxia on room air General: well nourished, well developed, in no distress Skin: warm, dry, no rash, no pallor HEENT: normocephalic and atraumatic; PERRL, EOMI, dry mucous membranes Cardiovascular: regular rate and rhythm without murmurs, no peripheral edema, 2+ pulses all distal extremities Respiratory: No increased work of breathing, lungs are clear to auscultation bilaterally, no rales, rhonchi or wheezing Abdominal: Abdomen is soft, nontender with normoactive bowel sounds, no guarding or rebound, no masses MSK: Moves all extremities, no deformities, normal strength Neuro: Awake and alert, oriented ?4. No facial droop, sensation and motor function intact and symmetric Test Results: Abnormal Lab Results 01/30/19 01/30/19 01/30/19 20:45 20:45 20:45 WBC 11.6 H RBC 5.16 Hgb 16.4 Hct 48.9 MCV 94.8 H MCH 31.8 MCHC 33.5 RDW 13.9 RDW Differential 46.6 H Plt Count 361 MPV 8.8 Immature Gran % (Auto) 1.000 H Neut % (Auto) 66.0 Lymph % (Auto) 22.4 Ashley % (Auto) 9.3 Eos % (Auto) 1.0 Baso % (Auto) 0.3 Absolute Neuts (auto) 7.6 Absolute Lymphs (auto) 2.59 Total Counted Not Reportable PT 12.5 INR 1.0 APTT 29.5 Sodium 138 Potassium 4.4 Chloride 106 Carbon Dioxide 26.0 Anion Gap 6 BUN 26 H Creatinine 2.26 H Estim Creat Clear Calc 32.86 Est GFR (MDRD) Af Amer 37 L Est GFR (MDRD) Non-Af 31 L BUN/Creatinine Ratio 11.5 Glucose 107 H Lactic Acid Calcium 9.0 Total Bilirubin 0.30 AST 15 ALT 35 Alkaline Phosphatase 95 Troponin I < 0.015 Total Protein 7.1 Albumin 3.8 Globulin 3.3 Albumin/Globulin Ratio 1.2 TSH 2.08 Urine Color Urine Clarity Urine pH Ur Specific [place] Urine Protein Urine Glucose (UA) Urine Ketones Urine Occult Blood Urine Nitrite Urine Bilirubin Urine Urobilinogen Ur Leukocyte Esterase Urine RBC Urine WBC Ur Squamous Epith Cells Urine Bacteria Urine Mucus 01/30/19 01/30/19 21:20 21:59 WBC RBC Hgb Hct MCV MCH MCHC RDW RDW Differential Plt Count MPV Immature Gran % (Auto) Neut % (Auto) Lymph % (Auto) Ashley % (Auto) Eos % (Auto) Baso % (Auto) Absolute Neuts (auto) Absolute Lymphs (auto) Total Counted PT INR APTT Sodium Potassium Chloride Carbon Dioxide Anion Gap BUN Creatinine Estim Creat Clear Calc Est GFR (MDRD) Af Amer Est GFR (MDRD) Non-Af BUN/Creatinine Ratio Glucose Lactic Acid 1.8 Calcium Total Bilirubin AST ALT Alkaline Phosphatase Troponin I Total Protein Albumin Globulin Albumin/Globulin Ratio TSH Urine Color Yellow Urine Clarity Clear Urine pH 6.0 Ur Specific [place] 1.010 Urine Protein 30 H Urine Glucose (UA) Normal Urine Ketones Negative Urine Occult Blood Negative Urine Nitrite Negative Urine Bilirubin Negative Urine Urobilinogen Normal Ur Leukocyte Esterase 25 H Urine RBC 0 SEEN Urine WBC 0-5 SEEN Ur Squamous Epith Cells 0-5 SEEN Urine Bacteria 0 SEEN Urine Mucus 0 SEEN Clinical Impression(s) from Imaging Studies Chest X-Ray 01/30/19 21:00 IMPRESSION: 1. No acute findings. 2. COPD. Electronically Signed: Louisa Delgadillo MD at 22:59 EDT Tel , Service support , Medications Given Sodium Chloride () 1,000 mls @ 500 mls/hr IV .Q2H ONE Stop: 01/31/19 01:09 Last Admin: 01/30/19 23:12 Dose: Not Given Discontinued Medications Sodium Chloride () 1,000 mls @ 999 mls/hr IV .Q1H1M [facility] Last Admin: 01/30/19 21:02 Dose: 999 mls/hr Sodium Chloride () 500 mls @ 500 mls/hr IV .Q1H [facility] Stop: 01/31/19 00:14 Emergency Department Course and Treatment: Patient was given IV fluids for hypotension. Labs were performed showing no significant leukocytosis, no electrolyte derangements. Creatinine is 2.26, which is consistent with past measurements but slightly elevated from his most recent blood work. Urine was negative for infection. Troponin negative. EKG showed a sinus rhythm without ischemia or ectopy. Chest x-ray showed no acute process. On reevaluation patient stated he had no further symptoms. Blood pressure was 113/63 and heart rate 78. Patient had very dry lips and dry mucous membranes, worse than at his initial evaluation. Because patient is having the hypotension of unknown origin and appears clinically dehydrated, patient was to be admitted for observation and hydration. Patient declined admission and stated he wanted to go home. I wanted to give patient further hydration because he does still appear dehydrated and, while blood pressure is improved, it is still on the low end of normal. Patient adamantly refused and now is stating that he always has these episodes and has to come in for hydration, and he is told that the only fixes that he drink more water at home. I discussed with patient that that is a different story from initial presentation, as he stated he did not know why he has these episodes of dizziness and low blood pressure. Patient wants to leave, and because I was unable to provide further fluids and because I felt it would be more appropriate to keep him overnight for further monitoring of his blood pressure and hydration status and also further workup of his episodic hypotension, I signed patient out AGAINST MEDICAL ADVICE. We discussed the risks are he could have worsening of his symptoms, fall, become injured, or even . Patient agreed with the risks and left AGAINST MEDICAL ADVICE. Treatment Plan: [] Disposition: [] Impression: Left AGAINST MEDICAL ADVICE, symptomatic hypotension, dehydration This note was generated with [employer] dictation software. It may contain incorrect words, spelling, and punctuation that were not noted in review of the chart prior to signing ED Disposition - Plan for ED Patient: Disposition: Against Medical Advice Instructions: ED Hypotension All Causes Referrals: Lizabeth Ruiz MD [Primary Care Provider] - As soon as possible Additional Instructions: Please follow-up with Dr. Ruiz, calling Friday to schedule an appointment for as soon as possible. Have your medication list reviewed to make sure you are not on any medications that would lower your blood pressure. Drink plenty of fluids to prevent dehydration. If you have any worsening of your condition or any new concerning symptoms, please return immediately to the emergency department for another evaluation.
[2019-01-30 21:12] LABS: Absolute Lymphocyte Count 2.59 X10^3/ul (0.83-4.51); Absolute Neutrophil Count 7.6 X10^3/uL (2.0-7.7); Basophil# 0.04 X10^3/uL; Basophil% 0.3 % (0-1); Eosinophil# 0.11 X10^3/uL; Hematocrit 48.9 % (40-54); Hemoglobin 16.4 g/dl (13.0-16.5); Lymphocyte # 2.59 X10^3/ul (4.0); Lymphocyte % 22.4 % (19-41); Mean Corp Hgb Conc 33.5 g/gl (32-36); Mean Corpuscular Hgb 31.8 pg (27.0-32.0); Mean Corpuscular Volume 94.8 fL (80-94); Mean Platelet Vol. 8.8 fl (6.2-12.0); Monocyte# 1.08 X10^3/uL; Monocyte% 9.3 % (0-10); Neutrophil # 7.63 X10^3/uL (2.7-7.7); Platelet Count 361 K/mm3 (150-450); RBC Distribution Width CV 13.9 % (11.6-14.6); RBC Distribution Width SD 46.6 fl (35.1-43.9); Red Blood Count 5.16 M/mm3 (4.6-6.2); White Blood Count 11.6 K/mm3 (4.4-11.0)
[2019-01-30 21:13] LABS: POSITIVE COUNT NO; POSITIVE DIFFERENTIAL NO; POSITIVE MORPHOLOGY NO
[2019-01-30 21:19] LABS: Prothrombin Time (Protime)PT. 12.5 SECONDS (11.7-14.9)
[2019-01-30 21:20] LABS: Partial Thromboplast Time 29.5 Seconds (24.1-36.2)
[2019-01-30 21:32] LABS: ALB/GLOB Ratio 1.2 RATIO (0.9-2.4); AST(SGOT) 15 U/L (15-37); Alanine Aminotransfer ALT/SGPT 35 U/L (16-61); Albumin, Serum 3.8 g/dL (3.2-5.0); Alkaline Phosphatase 95 U/L (45-117); Anion Gap 6 (5-15); BUN 26 mg/dL (7-18); BUN/Creat Ratio 11.5 RATIO (10-20); Chloride 106 mmol/L (98-107); Creatinine, Serum 2.26 mg/dL (0.70-1.30); EST Glomerular Filtration Rate 31 mL/min (>60); Est Glom Filt Rate - Afr Amer 37 mL/min (>60); Estimated Creatinine Clearance 32.86 ml/min; Globulin 3.3 g/dL (2.2-4.2); Glucose 107 mg/dL (74-106); Potassium 4.4 mmol/L (3.5-5.1); Protein, Total 7.1 g/dL (6.4-8.2); Sodium Level 138 mmol/L (136-145); Thyroid Stim Hormone (TSH) 2.08 uIU/mL (0.358-3.74)
[2019-01-30 22:07] LABS: Bacteria 0 SEEN /hpf (None Seen); Mucous, Urine 0 SEEN /hpf (<or=2+); Red Blood Cells-Urine 0 SEEN /hpf (0-5)
[2019-01-30 22:27] LABS: Color, Urine Yellow (Yellow); Glucose, Dipstick Normal (Normal); Ketone-Dipstick Negative (Negative); Leukocyte Esterase-Dipstick 25 /ul (Negative); Nitrite-Dipstick Negative (Negative); Occult Blood-Urine Negative /ul (Negative); Protein-Dipstick 30 mg/dl (Negative); Urine Bilirubin Dipstick Negative (Negative); Urine Clarity Clear (Clear); Urine Urobilinogen Normal (Normal)
[2019-01-30 22:30] LABS: Squamous Epithelial Cells - UA 0-5 SEEN /hpf (0-5); White Blood Cells 0-5 SEEN /hpf (0-5)
[2019-01-30 22:33] LABS: Lactic Acid 1.8 mmol/L (0.4-2.0)
== END 2019-01-30 23:33 | disposition left against medical advice (07) ==
PROVIDERS: Emergency Provider Emergency Medicine; Family Provider Family Medicine; PCP Family Medicine
DX: I95.1 Orthostatic hypotension (principal); E86.0 Dehydration; Z53.21 Procedure and treatment not carried out due to patient leaving prior to being seen by health care provider; Z79.82 Long term (current) use of aspirin; Z79.899 Other long term (current) drug therapy
CPT/HCPCS: 71045; 80053; 81001; 83605; 84443; 84484; 85025; 85610; 85730; 87040; 87086; 87088; 93005; 96360; 99284; J7030; J7040; A4216

== ENCOUNTER → 2019-02-22 09:45 | Outpatient (CLI) | payer MEDICARE, OTHER, SELFPAY ==
[2019-01-30 20:28] VITALS: BMI 25.7
--- NOTE | 2019-02-22 09:51 | ART_ITS ---
Reason For Study: Atherosclerosis with claudication Procedure A bilateral lower extremity continuous wave Doppler with analog waveform analysis and ankle brachial indexes. Left Segmental Pressures Left brachial= 97mmHg. Left posterior tibial artery = 75mmHg. Left dorsalis pedis artery = 67mmHg. The left dorsalis pedis waveforms are biphasic. The left posterior tibial artery waveforms are biphasic. Right Segmental Pressures Right brachial= 88mmHg. Right posterior tibial artery = 77mmHg. Right dorsalis pedis artery = 45mmHg. The right dorsalis pedis waveforms are biphasic. The right posterior tibial artery waveforms are biphasic. Indices The right ankle brachial index by the dorsalis pedis is .46. The right ankle brachial index by the posterior tibial artery is .79. The left ankle brachial index by the dorsalis pedis is .69. The left ankle brachial index by the posterior tibial artery is .77. Interpretation Summary 1. Bilateral mild occlusive disease with SHASHANK 0.79/0.77. Ordering Physician: Iban Olson Referring Physician: Iban Olson Performed By: Alexandra Arellano RVT
== END ==
PROVIDERS: Family Provider Family Medicine; PCP Family Medicine; Referring Provider Surgery Vascular Surgery; Visit Provider Surgery Vascular Surgery
DX: I70.213 Atherosclerosis of native arteries of extremities with intermittent claudication, bilateral legs (principal); I65.23 Occlusion and stenosis of bilateral carotid arteries; I10 Essential (primary) hypertension; E78.70 Disorder of bile acid and cholesterol metabolism, unspecified; F32.9 Major depressive disorder, single episode, unspecified; F17.200 Nicotine dependence, unspecified, uncomplicated; Z85.828 Personal history of other malignant neoplasm of skin
CPT/HCPCS: 93922

== ENCOUNTER → 2019-04-01 10:11 | Outpatient (CLI) | payer MEDICARE, OTHER, SELFPAY ==
[2019-01-30 20:28] VITALS: BMI 25.7
[2019-04-01 11:06] LABS: Albumin, Serum 3.3 g/dL (3.2-5.0); BUN 22 mg/dL (7-18); BUN/Creat Ratio 14.8 RATIO (10-20); Calcium,Total 8.7 mg/dL (8.5-10.1); Chloride 112 mmol/L (98-107); Creatinine, Serum 1.49 mg/dL (0.70-1.30); EST Glomerular Filtration Rate 50 mL/min (>60); Est Glom Filt Rate - Afr Amer 60 mL/min (>60); Glucose 96 mg/dL (74-106); Phosphorus 2.2 mg/dL (2.5-4.9); Potassium 4.1 mmol/L (3.5-5.1); Sodium Level 144 mmol/L (136-145)
[2019-04-01 11:19] LABS: PTHIN 90.1 pg/mL (18.4-80.1)
== END ==
PROVIDERS: Family Provider Family Medicine; PCP Family Medicine; Referring Provider Internal Medicine Nephrology; Visit Provider Internal Medicine Nephrology
DX: N18.3 Chronic kidney disease, stage 3 (moderate) (principal)
CPT/HCPCS: 36415; 80069; 83970

== ENCOUNTER 2019-05-15 21:43 | Inpatient (IN) | payer MEDICARE, OTHER, SELFPAY ==
[2019-01-30 20:28] VITALS: BMI 25.7
[2019-05-15 21:45] VITALS: BP 135/98; PULSE 92; RESP 20; TEMP 36.8; O2SAT 90; BMI 25.6
[2019-05-15 21:51] LABS: Bedside Glucose 90 mg/dL (70-110)
[2019-05-15 22:15] VITALS: RESP 18
--- NOTE | 2019-05-15 22:59 | CT_ITS ---
HISTORY: WEAKNESS,HEADACHE X 4 DAYS,ELEVATED BP,FREQUENT FALLSHX:HTN,COPD,KIDNEY DZ STAGE 3,SKIN AND BLADDER CANCER TECHNIQUE: Multiple axial images were obtained of the brain without intravenous contrast. A radiation dose optimization technique was used for this scan. COMPARISON: Most recent comparison imaging of the brain is an MRI of the brain of December 06, 2017. Study before that is an MRI of the brain from September 19, 2015 Findings: CT images of the head were obtained without contrast. Periventricular deep and subcortical white matter disease is present. Paranasal sinuses are clear. The brain is atrophic. Calcific ASCVD involves intracranial arteries. No acute intracranial edema or hemorrhage. No acute abnormality of orbits. Middle ear cavities and mastoid air cells are well aerated. Skull is normal. CT/Brain/Head without Contrast IMPRESSION: No acute intracranial abnormality. Chronic changes as above. ASPECT 10. Individualized dose optimization techniques were used for this CT. at 0029 Reported and signed by: Augie Armstrong MD Electronically Signed: Augie Armstrong MD at 0:28 EDT Tel , Service support ,
--- NOTE | 2019-05-15 23:00 | EKG12_ITS ---
Test Reason : GENERAL ILLNESS Blood Pressure : / mmHG Vent. Rate : 080 BPM Atrial Rate : 080 BPM P-R Int : 152 ms QRS Dur : 102 ms QT Int : 400 ms P-R-T Axes : 014 -07 053 degrees QTc Int : 461 ms Normal sinus rhythm Possible Left atrial enlargement Cannot rule out Inferior infarct (cited on or before 14-OCT-2018) Abnormal ECG Confirmed by BALDO FLEMING, JOHANNE ([id number]), general expeditor CHAUNCEY OSORIO ([id number]) on 05/18/2019 2:02:42 PM Referred By: MANAV Confirmed By:JOHANNE BLAND MD
--- NOTE | 2019-05-15 23:02 | ED.DCSUM_ITS ---
- ER Visit Summary Date of Service: 05/15/19 Chief Complaint: Confusion, headache, weakness, frequent falls History of Present Illness: The patient is a 68 M who presents with confusion, headaches, frequent falls, and general weakness. Patient states his legs have been giving out and he has been falling frequently. Patient states this has been getting worse over the past month. Patient also admits to a frontal headache. Patient states nothing seems to make this better or worse. Patient does admit to chronic back pain but denies any new pain. Physical Examination: Vital signs are stable. Patient is afebrile. Patient is in no acute distress. Pupils are equal, round, and reactive to light bilaterally. Extraocular muscles are intact. Conjunctiva slightly injected bilaterally. Oral mucosa is pink and moist. Neck is supple. Trachea is midline. There is no JVD noted. Heart with regular rate and rhythm. Lungs are clear and equal bilaterally. Abdomen is soft. Bowel sounds are normal. Cranial nerves II through XII are intact. There are no focal motor or sensory deficits noted. Test Results: CBC was normal. Comprehensive metabolic profile showed an elevated creatinine of 2.6. This was increased from previous result of one- point 0.9. BUN was also slightly elevated at 30. Liver function tests were normal. Urinalysis does not show any evidence of urinary tract infection. Troponin was normal. CT scan of the brain was obtained. There is no acute intracranial abnormality. Chest x-ray was obtained. There are chronic changes but no acute process. EKG showed a normal sinus rhythm with a rate of 80. There are no acute ST or T wave changes. This is unchanged compared to previous EKG dated 01/30/2019. Emergency Department Course and Treatment: Patient was given IV fluids. Patient was resting comfortably on reexamination. Patient and his were updated on results of testing. Case was discussed with the hospitalist. She will admit the patient to her service. Disposition: Admit to hospital Impression: 1. Acute kidney injury 2. General weakness 3. Frequent falls This note was generated with [employer] dictation software. It may contain incorrect words, spelling, and punctuation that were not noted in review of the chart prior to signing ED Disposition - Plan for ED Patient: Disposition: Acute Care [facility] Diagnosis: Acute kidney injury, Frequent falls Referrals: Lizabeth Ruiz MD [Primary Care Provider] -
--- NOTE | 2019-05-15 23:20 | RAD_ITS ---
STUDY: X-RAY CHEST REASON FOR EXAM: Male, 68 years old. Weakness and headache for 4 days TECHNIQUE: Single frontal view of the chest. COMPARISON: 01/30/2019 FINDINGS: Chronic interstitial lung changes without superimposed acute alveolar disease. There is no demonstrated pleural abnormality. Normal size heart. Normal mediastinum and debra. Normal visualized pulmonary arteries. Normal visualized aortic arch and descending thoracic aorta. Normal visualized thoracic spine. Normal visualized ribs, clavicles, and shoulders. There is no demonstrated abnormality of the visualized soft tissue structures of the upper abdomen. RAD/Chest 1 View (Portable) IMPRESSION: Chronic interstitial lung changes without superimposed acute alveolar disease. Electronically Signed: Andrew Kimbrough MD at 23:31 EDT Tel , Service support ,
[2019-05-15 23:26] LABS: Absolute Neutrophil Count 5.7 X10^3/uL (2.0-7.7); Basophil# 0.04 X10^3/uL; Basophil% 0.4 % (0-1); Eosinophil# 0.11 X10^3/uL; Eosinophils% 1.2 % (0-5); Hemoglobin 15.5 g/dl (13.0-16.5); Lymphocyte % 25.1 % (19-41); Mean Corp Hgb Conc 33.7 g/gl (32-36); Mean Corpuscular Hgb 32.2 pg (27.0-32.0); Mean Corpuscular Volume 95.4 fL (80-94); Mean Platelet Vol. 9.4 fl (6.2-12.0); Monocyte# 0.98 X10^3/uL; Monocyte% 10.7 % (0-10); Neutrophil # 5.71 X10^3/uL (2.7-7.7); Neutrophil % 62.2 % (47-70); Platelet Count 315 K/mm3 (150-450); RBC Distribution Width CV 13.9 % (11.6-14.6); RBC Distribution Width SD 48.9 fl (35.1-43.9); Red Blood Count 4.82 M/mm3 (4.6-6.2); White Blood Count 9.2 K/mm3 (4.4-11.0)
[2019-05-15] MEDS: 0.9% Normal Saline 1,000 ML 1000 ML IV (23:29)
[2019-05-15 23:31] LABS: POSITIVE COUNT NO; POSITIVE DIFFERENTIAL NO; POSITIVE MORPHOLOGY NO; Prothrombin Time (Protime)PT. 13.2 SECONDS (11.7-14.9)
[2019-05-15 23:38] LABS: ALB/GLOB Ratio 1.1 RATIO (0.9-2.4); AST(SGOT) 12 U/L (15-37); Alanine Aminotransfer ALT/SGPT 20 U/L (16-61); Albumin, Serum 3.6 g/dL (3.2-5.0); Alkaline Phosphatase 101 U/L (45-117); Anion Gap 7 (5-15); BUN 30 mg/dL (7-18); BUN/Creat Ratio 11.5 RATIO (10-20); Calcium,Total 9.1 mg/dL (8.5-10.1); Chloride 109 mmol/L (98-107); EST Glomerular Filtration Rate 26 mL/min (>60); Est Glom Filt Rate - Afr Amer 32 mL/min (>60); Estimated Creatinine Clearance 28.56 ml/min; Globulin 3.4 g/dL (2.2-4.2); Glucose 87 mg/dL (74-106); Potassium 4.3 mmol/L (3.5-5.1); Sodium Level 139 mmol/L (136-145)
[2019-05-15 23:45] LABS: Color, Urine Yellow (Yellow); Glucose, Dipstick Normal (Normal); Ketone-Dipstick 5 mg/dl (Negative); Leukocyte Esterase-Dipstick 25 /ul (Negative); Nitrite-Dipstick Negative (Negative); Occult Blood-Urine 10 /ul (Negative); Protein-Dipstick 30 mg/dl (Negative); Urine Clarity Sl. Cloudy (Clear); Urine Urobilinogen 1 mg/dl (Normal)
[2019-05-15 23:47] LABS: Urine Bilirubin Dipstick 1 mg/dL (Negative)
[2019-05-15 23:50] LABS: Bacteria 1+ /hpf (None Seen); Mucous, Urine 2+ /hpf (<or=2+); Red Blood Cells-Urine 0-5 SEEN /hpf (0-5); White Blood Cells 0-5 SEEN /hpf (0-5)
[2019-05-15 23:51] LABS: Calcium Oxalate Crystals Ur RARE /hpf (<or=2+); Hyaline Cast 0-5 SEEN /lpf (0-5); Squamous Epithelial Cells - UA 0-5 SEEN /hpf (0-5)
[2019-05-16] VITALS (14 sets, daily range): BP systolic 122–182; BP diastolic 62–99; PULSE 71–90; RESP 16–20; TEMP 36.4–36.8; O2SAT 94–98; BMI 25.0
--- NOTE | 2019-05-16 03:00 | PCM.HP.STD ---
Problem List (1) Acute kidney injury Status: Acute (2) Frequent falls Status: Acute History of Present Illness Date of Admission: 05/16/19 Chief Complaint: Weakness, recurrent falls The patient is a 68 year old M with past medical history of hypertension, hyperlipidemia, PAD status post femoral surgery and stent, history of orthostatic hypotension, history of bladder cancer status post surgery 20 years ago at [place] who comes in with confusion, headache, weakness and recurrent falls ongoing for 1 month but progressively getting worse. History was taken mostly from his as patient was sleepy. He complains of severe headache, denies hitting the head against any object. Denies any fever or chills. His says he has been drinking lots of water. He also has been working outside in the heat Denies any chest pain or dizziness or palpitations or nausea or vomiting. His admits patient being more confused in the last few days. He also has been very weak and has been falling. His legs seem to give up under him. Vitals in the ED showed temperature F, heart rate 92, blood pressure 135/98, respiratory rate is 20, SPO2 is 90% on room air improved to 95% 2 L nasal cannula oxygen. CBC these unremarkable, BMP is positive for BUN of 30, creatinine 2.60, baseline creatinine 1.49. Troponin x 1 was negative. UA was unremarkable. CT of the brain shows no acute intracranial abnormality. Chest x-ray shows chronic interstitial lung changes, no acute cardiopulmonary process. Past Medical History Past Medical History (Chronic Problems): Chronic Problems (Last Reviewed 10/15/18 @ 05:39 by Candelario Robb MD) COPD (chronic obstructive pulmonary disease) (Chronic) Near syncope (Chronic) Orthostatic hypotension (Chronic) HTN (hypertension) (Chronic) HLD (hyperlipidemia) (Chronic) Basal cell carcinoma (Chronic) PAD (peripheral artery disease) (Chronic) Kidney calculi (Chronic) TIA (transient ischemic attack) (Chronic) Medical History: Medical History (Last Reviewed 10/15/18 @ 05:39 by Candelario Robb MD) Near syncope (Chronic) R55 Orthostatic hypotension (Chronic) I95.1 HTN (hypertension) (Chronic) I10 HLD (hyperlipidemia) (Chronic) E78.5 PAD (peripheral artery disease) (Chronic) I73.9 Allergies morphine Allergy (Verified 05/15/19 21:44) Other Home Medications: Ambulatory Orders Medication Instructions Recorded Atorvastatin Calcium [Lipitor] 10 mg PO QHS 10/14/18 Gabapentin [Neurontin] 400 mg PO TIDCM 10/14/18 Losartan Potassium [Cozaar] 50 mg PO DAILY 10/14/18 Omeprazole [Prilosec] 20 mg PO BID 10/14/18 Amitriptyline HCl [Elavil] 100 mg PO QHS 01/30/19 Aspirin [Aspirin, Baby] 81 mg PO DAILY@0800 01/30/19 Hydrochlorothiazide [Hctz] 25 mg PO DAILY 01/30/19 Surgical History: - - Hand surgery for trigger finger. Surgery on her wrist at x2. 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 Len was placed in left femur. Carotid endarterectomy. Bladder surgery for cancer. Lives: Spouse/ Significant Other Smoking Status: Current every day smoker Tobacco Use: Cigars Alcohol: None Drugs: None - *Family History Maternal Family History: Family History (Last Updated 10/15/18 @ 05:45 by Candelario Robb MD) Father Lung cancer Brother Throat cancer Brother Stomach cancer Mother Heart problem History Items: Heart Disease Paternal Family History: Family History (Last Updated 10/15/18 @ 05:45 by Candelario Robb MD) Father Lung cancer Brother Throat cancer Brother Stomach cancer Mother Heart problem History Items: Cancer - lung Sibling Family History: Family History (Last Updated 10/15/18 @ 05:45 by Candelario Robb MD) Father Lung cancer Brother Throat cancer Brother Stomach cancer Mother Heart problem History Items: Cancer - throat and stomach Review of Systems Constitutional: Reports: Anorexia, Malaise, Weakness, Fatigue. Denies: Chills, Fever, Weight Change Eyes: Denies: Blurred vision, Cataracts, Conjunctivae Inflammation, Pain, Redness, Vision Change HEENT: Denies: Difficulty Hearing, Difficulty Swallowing, Head Aches, Hearing Changes, Sinus Congestion, Sinus Drainage, Sore Throat Cardiovascular: Denies: Chest Pain, Claudication, Orthopnea, Palpitations, Paroxysmal Noc. Dyspnea Respiratory: Denies: Cough, Hemoptysis, Shortness of breath at rest, Shortness of breath upon exertion, Sputum production Gastrointestinal: Denies: Abdominal Pain, Constipation, Hematemesis, Hematochezia, Nausea, Vomiting Genitourinary: Denies: Dysuria, Frequency Musculoskeletal: Denies: Joint Pain, Joint Tenderness Skin: Denies: Rash, Wounds Neurological: Denies: Difficulty swallowing, Focal weakness, Numbness, Tingling Psychiatric: Denies: Anxiety, Depression, Homicidal Ideations, Suicidal Ideations Hematologic/ Lymphatic: Denies: Easy Bruising, Easy Bleeding VTE Information - Inpt Only VTE Present on Admission: Yes VTE Pharm Prophylaxis ordered?: No Patient Problems: Active and Suspected Problems (Last Reviewed 10/15/18 @ 05:39 by Candelario Robb MD) Acute kidney injury (Acute) Frequent falls (Acute) - Physical Exam General: Alert, Oriented x3 - except for year, Cooperative, No apparent distress HEENT: Atraumatic, PERRLA, EOMI, Normocephalic Oral: Dry Mucosa Neck: Supple Lungs: Clear to auscultation, Normal air movement Cardiovascular: Regular rate, Regular Rhythm, Normal S1, Normal S2, No murmurs Abdomen: Bowel Sounds Present, Soft, Non Tender, Non-Distended, No Hepato-splenomegaly Extremities: Edema - Trace bilateral pedal edema Skin: No rashes Musculoskeletal: No Tenderness to Palpation of Joints or Extremities Lymphatic: No Cervical, Supraclavicular, or Inguinal Adenopathy Neurological: Cranial nerves II-XII grossly intact, Neuro grossly intact Psych/Mental Status: Normal Affect, Appropriate Vital Signs Temp Pulse Resp BP Pulse Ox 98.2 F 90 16 136/75 H 95 05/15/19 21:45 05/16/19 02:23 05/16/19 02:23 05/16/19 02:23 05/16/19 00:06 Oxygen Flow Rate (L/min) 2 Oxygen Delivery Method Nasal Cannula Weight: 83.3 kg Body Mass Index (BMI) 25.6 Finger Stick Blood Glucose 134 Laboratory Tests Past 24 Hrs 05/15/19 05/15/19 05/15/19 22:00 22:00 22:00 WBC 9.2 RBC 4.82 Hgb 15.5 Hct 46.0 MCV 95.4 H MCH 32.2 H MCHC 33.7 RDW 13.9 RDW Differential 48.9 H Plt Count 315 MPV 9.4 Immature Gran % (Auto) 0.400 Neut % (Auto) 62.2 Lymph % (Auto) 25.1 [place] % (Auto) 10.7 H Eos % (Auto) 1.2 Baso % (Auto) 0.4 Absolute Neuts (auto) 5.7 Absolute Lymphs (auto) 2.30 Total Counted Not Reportable PT 13.2 INR 1.0 APTT 33.0 Sodium 139 Potassium 4.3 Chloride 109 H Carbon Dioxide 23.0 Anion Gap 7 BUN 30 H Creatinine 2.60 H Estim Creat Clear Calc 28.56 Est GFR (MDRD) Af Amer 32 L Est GFR (MDRD) Non-Af 26 L BUN/Creatinine Ratio 11.5 Glucose 87 Calcium 9.1 Total Bilirubin 0.20 AST 12 L ALT 20 Alkaline Phosphatase 101 Troponin I < 0.015 Total Protein 7.0 Albumin 3.6 Globulin 3.4 Albumin/Globulin Ratio 1.1 Urine Color Urine Clarity Urine pH Ur Specific [place] Urine Protein Urine Glucose (UA) Urine Ketones Urine Occult Blood Urine Nitrite Urine Bilirubin Urine Urobilinogen Ur Leukocyte Esterase Urine RBC Urine WBC Ur Squamous Epith Cells Calcium Oxalate Crystal Urine Bacteria Hyaline Casts Urine Mucus 05/15/19 23:30 WBC RBC Hgb Hct MCV MCH MCHC RDW RDW Differential Plt Count MPV Immature Gran % (Auto) Neut % (Auto) Lymph % (Auto) [place] % (Auto) Eos % (Auto) Baso % (Auto) Absolute Neuts (auto) Absolute Lymphs (auto) Total Counted PT INR APTT Sodium Potassium Chloride Carbon Dioxide Anion Gap BUN Creatinine Estim Creat Clear Calc Est GFR (MDRD) Af Amer Est GFR (MDRD) Non-Af BUN/Creatinine Ratio Glucose Calcium Total Bilirubin AST ALT Alkaline Phosphatase Troponin I Total Protein Albumin Globulin Albumin/Globulin Ratio Urine Color Yellow Urine Clarity Sl. Cloudy Urine pH 5.0 Ur Specific [place] 1.020 Urine Protein 30 H Urine Glucose (UA) Normal Urine Ketones 5 H Urine Occult Blood 10 H Urine Nitrite Negative Urine Bilirubin 1 H Urine Urobilinogen 1 H Ur Leukocyte Esterase 25 H Urine RBC 0-5 SEEN Urine WBC 0-5 SEEN Ur Squamous Epith Cells 0-5 SEEN Calcium Oxalate Crystal RARE Urine Bacteria 1+ Hyaline Casts 0-5 SEEN Urine Mucus 2+ POC Glucose 05/15/19 21:48 POC Glucose 90 Assessment/Plan All Active Problems (Last Reviewed 10/15/18 @ 05:39 by Candelario Robb MD) Acute kidney injury (Acute) Frequent falls (Acute) Bladder cancer (Acute) Syncope (Acute) Hypotension (Acute) 68 year old M with past medical history of hypertension, hyperlipidemia, PAD status post femoral bypass surgery and stent, history of orthostatic hypotension, history of bladder cancer status post surgery 20 years ago at [place] who comes in with confusion, headache, weakness and recurrent falls ongoing for 1 month but progressively getting worse. 1. Acute metabolic encephalopathy secondary to DAWN, suspect baseline cognitive impairment, will continue to monitor 2. DAWN on CKD stage III, unclear etiology, likely prerenal Baseline creatinine is 1.49, admitting creatinine is 2.60 History of bladder CA status post surgery, We will hold losartan and hydrochlorothiazide, continue on IV fluids, ultrasound the kidney and bladder, nephrology consult, trend BMP 3. Recurrent falls, history of orthostatic hypotension, will continue on IV fluids, check orthostatic vitals, GRISELDA hoses 4. Hypertension, controlled, home hydrochlorothiazide and losartan held on account of #2, will monitor with hydralazine as needed 5. History of PAD status post bypass surgery and stent, on aspirin and statin 6. DVT PPx- Heparin SC Code Visit Inpatient E&M: 59888 Init Hosp L3
[2019-05-16] MEDS: 0.9% Normal Saline 1,000 ML 150 ML IV ×3 (04:54→17:41)
[2019-05-16] MEDS: Heparin Injection (Vial) 5,000 UNIT/ML VIAL 5000 UNIT SC ×3 (04:54→22:06)
--- NOTE | 2019-05-16 05:01 | US_ITS ---
STUDY: RENAL ULTRASOUND - COMPLETE REASON FOR EXAM: Male, 68 years old. Abnormal labs TECHNIQUE: Ultrasound evaluation of the kidneys was performed with real-time and static newman-scale imaging. COMPARISON: 10/12/2018 FINDINGS: RIGHT KIDNEY: Normal location of the right kidney, which is normal in size. The right kidney measures 11.0 cm. There is a normal cortex of the right kidney. There is a 1 cm cyst in the right kidney. There are nonobstructing stones in the collecting system of the right kidney, measuring up to 1.3 cm. There is no right hydronephrosis. DISTAL RIGHT URETER: There is non-visualization of the distal right ureter. There is no demonstrated right ureterovesical junction calculus. There is a visualized right ureteral jet. LEFT KIDNEY: Normal location of the left kidney, which is normal in size. The left kidney measures 11.6 cm. There is a normal cortex of the left kidney. There is an 8.1 x 5.9 cm septated cyst in the left kidney. There is a 1.2 cm nonobstructing left renal stone. There is no left hydronephrosis. DISTAL LEFT URETER: There is non-visualization of the distal left ureter. There is no demonstrated left ureterovesical junction calculus. There is a visualized left ureteral jet. AORTA: No evidence of abdominal aortic aneurysm. I.V.C.: The IVC is patent. BLADDER: The urinary bladder is partially distended and appears unremarkable. US/Kidney and Bladder IMPRESSION: Bilateral renal cysts, including a septated cyst in the left kidney. If indicated, further evaluation with a renal protocol CT or MRI can be performed. Bilateral nonobstructing stones measuring up to 1.3 cm on the right. No hydronephrosis. Electronically Signed: Domenico Ty, at 16:36 EDT Tel , Service support ,
[2019-05-16 06:28] LABS: Absolute Neutrophil Count 4.3 X10^3/uL (2.0-7.7); Basophil# 0.04 X10^3/uL; Basophil% 0.5 % (0-1); Eosinophil# 0.17 X10^3/uL; Eosinophils% 2.1 % (0-5); Hematocrit 43.6 % (40-54); Hemoglobin 14.5 g/dl (13.0-16.5); Lymphocyte % 31.4 % (19-41); Mean Corp Hgb Conc 33.3 g/gl (32-36); Mean Corpuscular Hgb 31.5 pg (27.0-32.0); Mean Corpuscular Volume 94.6 fL (80-94); Mean Platelet Vol. 9.4 fl (6.2-12.0); Monocyte# 0.93 X10^3/uL; Monocyte% 11.7 % (0-10); Neutrophil % 53.9 % (47-70); Platelet Count 276 K/mm3 (150-450); RBC Distribution Width CV 13.8 % (11.6-14.6); RBC Distribution Width SD 46.6 fl (35.1-43.9); Red Blood Count 4.61 M/mm3 (4.6-6.2)
[2019-05-16 06:29] LABS: POSITIVE COUNT NO; POSITIVE DIFFERENTIAL NO; POSITIVE MORPHOLOGY NO
[2019-05-16 06:36] LABS: Anion Gap 7 (5-15); BUN 24 mg/dL (7-18); BUN/Creat Ratio 13.3 RATIO (10-20); Calcium,Total 8.4 mg/dL (8.5-10.1); Chloride 113 mmol/L (98-107); Creatinine, Serum 1.81 mg/dL (0.70-1.30); EST Glomerular Filtration Rate 40 mL/min (>60); Est Glom Filt Rate - Afr Amer 48 mL/min (>60); Estimated Creatinine Clearance 41.02 ml/min; Glucose 86 mg/dL (74-106); Potassium 3.9 mmol/L (3.5-5.1); Sodium Level 144 mmol/L (136-145)
--- NOTE | 2019-05-16 08:51 | PN_ITS ---
Patient Problems: Active and Suspected Problems (Last Reviewed 10/15/18 @ 05:39 by Candelario Robb MD) Acute kidney injury (Acute) Frequent falls (Acute) Subjective: Patient seen and examined. He was admitted in the early hours of this morning with complaint of weakness and recurrent falls. He has a history of orthostatic hypotension. He states the weakness and recurrent falls as well as confusion and headache have been going on for about 1 month progressively getting worse. He said he had not been drinking much water. CT of the brain showed no acute intracranial process. Patient tells me today that he thinks he passed out with his falls. He admits to feeling lightheaded and dizzy and then falls and states he passes out. He cannot say how long he passes out for. He denies being ever told that he had a seizure and cannot say whether he had any seizure-like activity with his most recent falls. Patient did seem a bit drowsy, but was able to answer questions. Review of systems otherwise negative. Labs and vitals reviewed. Vitals/I&O's: Vital Signs Temp Pulse Resp BP Pulse Ox 97.6 F L 71 20 H 141/90 H 98 05/16/19 03:53 05/16/19 04:10 05/16/19 03:53 05/16/19 03:53 05/16/19 07:30 Oxygen Flow Rate (L/min) 2 Oxygen Delivery Method Nasal Cannula Weight: 179 lb 7.3 oz Body Mass Index (BMI) 25.0 Finger Stick Blood Glucose 134 Intake and Output for Last 24 Hours 05/14/19 05/15/19 05/16/19 23:59 23:59 23:59 Output Total 700 / 700 Balance -700 / -700 General: Alert, Cooperative, No apparent distress, Lethargic HEENT: Atraumatic, PERRLA, EOMI, Normocephalic Oral: Dry Mucosa Neck: Supple, No JVD, Negative Carotid Bruits Lungs: Clear to auscultation, Normal air movement, No rhonchi, No wheeze, No rales Cardiovascular: Regular rate, Regular Rhythm, Normal S1, Normal S2, No murmurs Abdomen: Bowel Sounds Present, Soft, Non Tender, Non-Distended, No Hepato- splenomegaly Extremities: No clubbing, No cyanosis, No edema, Capillary Refill Less than 3 Seconds Skin: No rashes, No breakdown Musculoskeletal: No Tenderness to Palpation of Joints or Extremities Lymphatic: No Cervical, Supraclavicular, or Inguinal Adenopathy Neurological: Cranial nerves II-XII grossly intact, Neuro grossly intact, Motor Exam 5/5 strength throughout Psych/Mental Status: - - lethargic, confused Laboratory Results 05/15/19 21:48: POC Glucose 90 05/15/19 22:00: WBC 9.2, RBC 4.82, Hgb 15.5, Hct 46.0, MCV 95.4 H, MCH 32.2 H, MCHC 33.7, RDW 13.9, RDW Differential 48.9 H, Plt Count 315, MPV 9.4, Immature Gran % (Auto) 0.400, Neut % (Auto) 62.2, Lymph % (Auto) 25.1, [place] % (Auto) 10.7 H, Eos % (Auto) 1.2, Baso % (Auto) 0.4, Absolute Neuts (auto) 5.7, Absolute Lymphs (auto) 2.30, Total Counted Not Reportable 05/15/19 22:00: PT 13.2, INR 1.0, APTT 33.0 05/15/19 22:00: Sodium 139, Potassium 4.3, Chloride 109 H, Carbon Dioxide 23.0, Anion Gap 7, BUN 30 H, Creatinine 2.60 H, Estim Creat Clear Calc 28.56, Est GFR (MDRD) Af Amer 32 L, Est GFR (MDRD) Non-Af 26 L, BUN/Creatinine Ratio 11.5, Glucose 87, Calcium 9.1, Total Bilirubin 0.20, AST 12 L, ALT 20, Alkaline Phosphatase 101, Troponin I < 0.015, Total Protein 7.0, Albumin 3.6, Globulin 3.4, Albumin/Globulin Ratio 1.1 05/15/19 23:30: Urine Color Yellow, Urine Clarity Sl. Cloudy, Urine pH 5.0, Ur Specific [place] 1.020, Urine Protein 30 H, Urine Glucose (UA) Normal, Urine Ketones 5 H, Urine Occult Blood 10 H, Urine Nitrite Negative, Urine Bilirubin 1 H, Urine Urobilinogen 1 H, Ur Leukocyte Esterase 25 H, Urine RBC 0-5 SEEN, Urine WBC 0-5 SEEN, Ur Squamous Epith Cells 0-5 SEEN, Calcium Oxalate Crystal RARE, Urine Bacteria 1+, Hyaline Casts 0-5 SEEN, Urine Mucus 2+ 05/16/19 06:08: WBC 8.0, RBC 4.61, Hgb 14.5, Hct 43.6, MCV 94.6 H, MCH 31.5, MCHC 33.3, RDW 13.8, RDW Differential 46.6 H, Plt Count 276, MPV 9.4, Immature Gran % (Auto) 0.400, Neut % (Auto) 53.9, Lymph % (Auto) 31.4, [place] % (Auto) 11.7 H, Eos % (Auto) 2.1, Baso % (Auto) 0.5, Absolute Neuts (auto) 4.3, Absolute Lymphs (auto) 2.50, Total Counted Not Reportable 05/16/19 06:08: Sodium 144, Potassium 3.9, Chloride 113 H, Carbon Dioxide 24.0, Anion Gap 7, BUN 24 H, Creatinine 1.81 H, Estim Creat Clear Calc 41.02, Est GFR (MDRD) Af Amer 48 L, Est GFR (MDRD) Non-Af 40 L, BUN/Creatinine Ratio 13.3, Glucose 86, Calcium 8.4 L Diagnostic Data Brain CT 05/15/19 22:59 IMPRESSION: No acute intracranial abnormality. Chronic changes as above. ASPECT 10. Individualized dose optimization techniques were used for this CT. at 0029 Reported and signed by: Augie Armstrong MD Electronically Signed: Augie Armstrong MD at 0:28 EDT Tel , Service support , Chest X-Ray 05/15/19 23:20 IMPRESSION: Chronic interstitial lung changes without superimposed acute alveolar disease. Electronically Signed: Andrew Kimbrough MD at 23:31 EDT Tel , Service support , Current Medications Acetaminophen (Tylenol) 650 mg PO Q6H PRN PRN PRN Reason: Mild pain 1-3/Temp > 100.7 F Al Hydroxide/Mg Hydroxide (Mylanta Ii) 30 ml PO Q6H PRN PRN PRN Reason: Gastric Burning Heparin Sodium (Porcine) (Heparin Na) 5,000 unit SC Q8 [facility] Last Admin: 05/16/19 04:54 Dose: 5,000 unit Documented by: Hydralazine HCl (Apresoline Iv) 5 mg IV Q6H PRN PRN PRN Reason: BLOOD PRESSURE Sodium Chloride () 1,000 mls @ 150 mls/hr IV .Q6H40M [facility] Last Admin: 05/16/19 04:54 Dose: 150 mls/hr Documented by: Magnesium Hydroxide (Milk Of Magnesia) 30 ml PO DAILY PRN PRN PRN Reason: Constipation Melatonin (Melatonin) 3 mg PO QHS PRN PRN PRN Reason: INSOMNIA Nicotine (Nicoderm Cq (Pbkc)) 14 mg TRANSDERM. DAILY YELENA Nitroglycerin (Nitrostat) 0.4 mg SUBLINGUAL Q5M PRN PRN Reason: CARDIAC/CHEST PAIN Ondansetron HCl (Zofran) 4 mg IV Q8H PRN PRN PRN Reason: NAUSEA/VOMITING Sodium Chloride () 10 - 40 ml IV UD PRN PRN Reason: SALINE FLUSH Medical Necessity - Tobacco Use Smoking Status: Current some day smoker Tobacco Use: Cigars Assessment/Plan All Active Problems (Last Reviewed 10/15/18 @ 05:39 by Candelario Robb MD) Acute kidney injury (Acute) Frequent falls (Acute) Bladder cancer (Acute) Syncope (Acute) Hypotension (Acute) 1. Acute metabolic encephalopathy * was thought to be due to DAWN on admission * CR was 2.6 on admission, with baseline of ~ 1.5 * Cr is down to 1.81 * continue hydration with IVF * could also be medication induced as he is on gabapentin 400mg tid and amitryptyline 100mg qhs. WIll hold gabapentin and amitryptyline for now. * 2. Debility due to recurrent falls * patient has been having recurrent falls over the last month * says he passes out after he falls. no history of Afib, and cannot say whether he has any seizure like activities when he falls. Passes out briefly and regains consciousness shortly after. Cannot say how long it takes. 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 Aortic and other valves were normal * fall precautions * PT/OT consulted. * 3. Recurrent falls, likely multifactorial in etiology * orthostatic hypotension and possible seizure could be contributing to these * management as under 2. * 4. Hypertension: HCTZ and losartan held o/a of DAWN. IV hydralazine prn 5. PAD s/p bypass surgery and stent: on aspirin nad statin 6. History of bladder cancer s/p surgery: stable. DVT prophylaxis: heparin Code Visit Inpatient E&M: 80668 Subs Hosp L3
--- NOTE | 2019-05-16 18:45 | NURSING ---
Pt voided total of 4 times today but each time was unmeasured. This nurse bladder scanned pt for 0ml.
[2019-05-16] MEDS: Atorvastatin Calcium 10 MG Tablet PO (22:06)
[2019-05-16] MEDS: Pantoprazole Sodium 20 MG Tablet PO (22:06)
[2019-05-16] MEDS: hydrALAZINE 20 MG/ML Vial 5 MG IV (22:29)
[2019-05-16] MEDS: 0.9% NaCl Peripheral Flush Adult/Peds IV (22:30)
[2019-05-16] MEDS: Acetaminophen 325 MG Tablet 650 MG PO (22:30)
[2019-05-17] VITALS (17 sets, daily range): BP systolic 111–170; BP diastolic 59–102; PULSE 73–98; RESP 16–18; TEMP 36.2–36.7; O2SAT 93–100; BMI 25.0
[2019-05-17] MEDS: Ondansetron 4 MG/2 ML Vial IV (00:01)
[2019-05-17] MEDS: 0.9% Normal Saline 1,000 ML 150 ML IV ×2 (00:01→06:10)
[2019-05-17] MEDS: Mag Hydrox/Al Hydrox/Simeth 30 ML UDC PO (03:59)
[2019-05-17 05:36] LABS: Hematocrit 43.3 % (40-54); Hemoglobin 14.4 g/dl (13.0-16.5)
--- NOTE | 2019-05-17 05:55 | ECHOD_ITS ---
Reason For Study: Arrhythmia Procedure This was a 2D Doppler, Color Flow transthoracic echocardiogram. Exam performed portable in patient room. Left Ventricle Normal LV size. Moderate concentric left ventricular hypertrophy. The estimated ejection fraction is 55 %. Left ventricular systolic function is normal. Stage 1 diastolic dysfunction. No regional wall motion abnormalities noted. Right Ventricle Normal RV size. Normal systolic function. Atria Normal left atrium. Normal right atrium. Mitral Valve Bileaflet diffuse mitral valve thickening. Mild (1+) eccentric mitral valve insufficiency. Tricuspid Valve Normal tricuspid valve. Mild (1+) tricuspid valve insufficiency. Aortic Valve Trisinus/trileaflet aortic valve. Pulmonic Valve Normal pulmonic valve. Great Vessels Normal aortic root. The pulmonary artery is normal size. Normal inferior vena cava. Pericardium/Pleural No pericardial effusion. MMode/2D Measurements & Calculations LVIDd: 4.9 cm IVSd: 1.5 cm Ao root diam: 3.2 cm LVIDs: 3.7 cm LVPWd: 1.3 cm RVDd: 2.8 cm FS: 23.9 % LAV(MOD-bp): 45.6 ml LVAd ap4: 31.1 cm2 SV(MOD-sp4): 46.6 ml LAV(MOD-bp) Indexed: 22.7 ml/m2 EDV(MOD-sp4): 97.1 ml LAV(MOD-sp2): 47.9 ml EDV(sp4-el): 99.9 ml LAV(MOD-sp4): 41.1 ml LVAs ap4: 20.2 cm2 ESV(MOD-sp4): 50.5 ml ESV(sp4-el): 50.2 ml EF(MOD-sp4): 48.0 % EF(sp4-el): 49.7 % SV(sp4-el): 49.7 ml LA A4 area: 15.5 cm2 LA dimension(2D): 3.7 cm RA A4 area: 13.0 cm2 Doppler Measurements & Calculations MV E max wang: 49.4 cm/sec Lat Peak E' Wang: 3.5 cm/sec Med Peak E' Wang: 3.3 cm/sec MV A max wang: 101.5 cm/sec E/E' lat: 14.2 E/E' med: 15.0 MV E/A: 0.49 Ao V2 max: 115.9 cm/sec LV V1 max: 92.5 cm/sec PA V2 max: 86.1 cm/sec Ao max P.4 mmHg LV V1 max P.4 mmHg Ao V2 mean: 75.3 cm/sec Ao mean P.6 mmHg Ao V2 VTI: 21.4 cm TR max wang: 277.6 cm/sec TR max P.8 mmHg Interpretation Summary Normal LV size. Moderate concentric left ventricular hypertrophy. The estimated ejection fraction is 55 %. Left ventricular systolic function is normal. Stage 1 diastolic dysfunction. Compared to prior study, there is no significant change. Ordering Physician: Anaid Diaz Referring Physician: Lizabeth Ruiz Performed By: Celia Ramírez, EVELYN, RVT
[2019-05-17 05:58] LABS: Albumin, Serum 2.8 g/dL (3.2-5.0); BUN 20 mg/dL (7-18); BUN/Creat Ratio 16.7 RATIO (10-20); Calcium,Total 8.2 mg/dL (8.5-10.1); Chloride 113 mmol/L (98-107); EST Glomerular Filtration Rate 64 mL/min (>60); Est Glom Filt Rate - Afr Amer 77 mL/min (>60); Estimated Creatinine Clearance 61.88 ml/min; Glucose 106 mg/dL (74-106); Phosphorus 2.4 mg/dL (2.5-4.9); Potassium 4.2 mmol/L (3.5-5.1); Sodium Level 143 mmol/L (136-145)
--- NOTE | 2019-05-17 06:46 | PN_ITS ---
Patient Problems: Active and Suspected Problems (Last Reviewed 05/17/19 @ 09:05 by Amy Jimenez PA-C) Acute kidney injury (Acute) Frequent falls (Acute) Coffee ground emesis (Acute) Subjective: Patient overnight with nausea and emesis with concern for coffee-ground appearance as well as patient admission of dark appearing stools over the last week in addition to recent history of weakness, debility and recurrent falls possibly associated. Discussed plan of care with patient which included evaluation per surgery service for possible upper endoscopy, n.p.o. status, cycling H&H's as well as transition to IV Protonix. He does state that he thinks he had a gastric ulcer but cannot be certain. Patient denies fevers, chills, abdominal pain, chest pain or dyspnea. Objective: Physical Examination: General: awake, alert, oriented x [address], person, recent events and cooperative, seated upright in the bedside chair, no acute distress, fatigued appearing. Skin: Mildly pale color, turgor, no icterus, cyanosis. HEENT: AT/NC, EOMI, PERRLA, mildly dry MM. Lungs: CTA bilaterally, moderate effort, moderate decrease BL bases, no rales, ronchi or wheezing. Heart: Regular rate and rhythm; no gallop, rub audible. Abdomen: soft, NTTP, appears mildly distended but notes this appearance is is baseline, mildly hyperactive BS, no HSM. Extremities: no cyanosis, clubbing, or edema. Neurological: patient awake, alert, oriented x 3; cognitive function currently appears improved, nearing baseline intact; pupils equally reactive to light and accomodation; cranial nerves II-XII grossly normal, moving all 4 extremities, no focal deficits, strength moderately to severely global decrease secondary to acute presentation. Psychiatric: affect appears fatigued, no acute evidence of depressive or anxiety feelings. Vitals/I&O's: Vital Signs Temp Pulse Resp BP Pulse Ox 97.8 F 82 18 154/102 H 94 05/17/19 03:56 05/17/19 05:59 05/17/19 03:56 05/17/19 03:56 05/17/19 03:56 Oxygen Flow Rate (L/min) 2 Oxygen Delivery Method Room Air Weight: 179 lb 7.3 oz Body Mass Index (BMI) 25.0 Finger Stick Blood Glucose 134 Orthostatic Vital Signs Start: 05/16/19 11:00 Freq: q24h Status: Active Protocol: Activity Type Activity Date Activity User E-Sign Co-Sign Detail Recorded Client Recorded Date Recorded By Document 05/16/19 22:15 CALI [id number] 05/16/19 22:20 CALI 05/16/19 22:15 Orthostatic Vitals Standing -Blood Pressure (90/60-120/80) 175/79 H -Extremity Use Right Arm -Pulse Rate (60-100) 85 Sitting -Blood Pressure (90/60-120/80) 182/83 H -Extremity Use Right Arm -Pulse Rate (60-100) 82 Lying -Blood Pressure (90/60-120/80) 181/94 H -Extremity Use Right Arm -Pulse Rate (60-100) 81 Intake and Output for Last 24 Hours 05/15/19 05/16/19 05/17/19 23:59 23:59 23:59 Intake Total 2794 / 2794 1147 / 1147 Output Total 1600 / 1600 975 / 975 Balance 1194 / 1194 172 / 172 Laboratory Results 05/17/19 05:20: Sodium 143, Potassium 4.2, Chloride 113 H, Carbon Dioxide 23.0, BUN 20 H, Creatinine 1.20, Estim Creat Clear Calc 61.88, Est GFR (MDRD) Af Amer 77, Est GFR (MDRD) Non-Af 64, BUN/Creatinine Ratio 16.7, Glucose 106, Calcium 8.2 L, Phosphorus 2.4 L, Albumin 2.8 L 05/17/19 05:20: Hgb 14.4, Hct 43.3 Current Medications Acetaminophen (Tylenol) 650 mg PO Q6H PRN PRN PRN Reason: Mild pain 1-3/Temp > 100.7 F Last Admin: 05/16/19 22:30 Dose: 650 mg Documented by: Al Hydroxide/Mg Hydroxide (Mylanta Ii) 30 ml PO Q6H PRN PRN PRN Reason: Gastric Burning Last Admin: 05/17/19 03:59 Dose: 30 ml Documented by: Albuterol/Ipratropium (Duoneb) 3 ml INHALATION Q6HWA.RT YELENA Atorvastatin Calcium (Lipitor) 10 mg PO QHS YELENA Last Admin: 05/16/19 22:06 Dose: 10 mg Documented by: Heparin Sodium (Porcine) (Heparin Na) 5,000 unit SC Q8 [facility] Last Admin: 05/17/19 06:11 Dose: Not Given Documented by: Hydralazine HCl (Apresoline Iv) 5 mg IV Q6H PRN PRN PRN Reason: BLOOD PRESSURE Last Admin: 05/16/19 22:29 Dose: 5 mg Documented by: Sodium Chloride () 1,000 mls @ 150 mls/hr IV .Q6H40M [facility] Last Admin: 05/17/19 06:10 Dose: 150 mls/hr Documented by: Magnesium Hydroxide (Milk Of Magnesia) 30 ml PO DAILY PRN PRN PRN Reason: Constipation Melatonin (Melatonin) 3 mg PO QHS PRN PRN PRN Reason: INSOMNIA Nicotine (Nicoderm Cq (Pbkc)) 14 mg TRANSDERM. DAILY [facility] Last Admin: 05/16/19 10:58 Dose: Not Given Documented by: Nitroglycerin (Nitrostat) 0.4 mg SUBLINGUAL Q5M PRN PRN Reason: CARDIAC/CHEST PAIN Ondansetron HCl (Zofran) 4 mg IV Q8H PRN PRN PRN Reason: NAUSEA/VOMITING Last Admin: 05/17/19 00:01 Dose: 4 mg Documented by: Pantoprazole Sodium (Protonix) 20 mg PO BID [facility] Last Admin: 05/16/19 22:06 Dose: 20 mg Documented by: Sodium Chloride () 10 - 40 ml IV UD PRN PRN Reason: SALINE FLUSH Last Admin: 05/16/19 22:30 Dose: 10 ml Documented by: Medical Necessity - Tobacco Use Smoking Status: Current some day smoker Tobacco Use: Cigars Assessment/Plan All Active Problems (Last Reviewed 05/17/19 @ 09:05 by Amy Jimenez PA-C) Acute kidney injury (Acute) Frequent falls (Acute) Coffee ground emesis (Acute) Bladder cancer (Acute) Syncope (Acute) Hypotension (Acute) The patient is a 68 y/o M w/ PMHx: Chronic COPD, GERD w/ Hx GI Bleed w/ ulcers unclear type, PAD, HTN, HLD, Orthostatic hypotension w/ history of syncope, Hx TIA who presents to the [facility] ED on 05/16/19 with history of weakness, debility and recurrent falls. (1) Current falls, debility, questionable near syncope versus seizure activity: EKG in ED w/ sinus rhythm without evidence of acute ischemia, CXR w/ no acute cardiopulmonary findings, CT brain without acut findings, initial trop normal. 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 PT/OT consultation to ascertain stability and discharge needs. (2) Acute kidney injury: Unclear specific etiology, possibly poor intake. Admission BUN/Cr 30/2.60, prior baseline creatinine noted to be 1.5. Hydrated, held nephrotoxic medications and repeat chemistry in AM, improving, 05/17/19 Cr 1.20. Nephrology consulted, renal US pending. (3) ? Coffee ground emesis w/ ? GI bleed, Hx Prior w/ Hx unclear ulcer: Will maintain on IVFs, obtain serial H+H q 6 hours, obtain T+S w/ cross for PRBC administration if appropriate, maintain on IV PPI. Surgery consulted pending. (4) Acute metabolic encephalopathy, Multifactorial: Bison likely secondary to acute kidney injury with suspected underlying cognitive impairment in addition to now noted possible GI bleed contributing to his acute presentation. Continue treatment as noted above. Will restart gabapentin, elavil regimen given improvement. (5) Chronic COPD: ATC duonebs, PRN albuterol, HOB, IS parameters. (6) Tobacco Abuse: Encouraged cessation, inpatient consultation per RT, NR if desired. (7) Hyperlipidemia: Continue home statin regimen. (8) DVT prophylaxis: SCDs, holding chemoprophylaxis given recent onset coffee ground emesis pending surgery evaluation. Code Visit Inpatient E&M: 57086 Subs Hosp L3
[2019-05-17 07:23] LABS: Magnesium 1.7 mg/dL (1.6-2.6)
--- NOTE | 2019-05-17 07:41 | NURSING ---
Phoned pt's to find out information about pt's surgery that he said he was having this week. Pt's stated he has been seeing Dr Gee Wright at [facility] approx the last month. She stated he has had 2 upper scopes recently and was scheduled for hernia surgery and a ?linx procedure to help his GERD this coming Friday. When asked if they had mentioned a stomach ulcer (as the pt had informed this nurse he had), his did not recall a stomach ulcer being diagnosed.
--- NOTE | 2019-05-17 08:13 | PCM.CONS.GEN ---
Problem List (1) Coffee ground emesis Status: Acute Reason for Consult Date of Consultation: 05/17/19 Reason for Consultation: Coffee ground emesis History of Present Illness: The patient is a 68 year old M who presented to the ED on 05/15 following a syncopal episode followed by confusion. Overnight patient developed emesis. It was noted to be coffee-ground in color. Patient notes a history of heartburn. He currently takes Prilosec twice daily. Patient states he has had a history of an ulcer. Patient also states he has had 2 upper scopes within the last month. He notes he is scheduled for a surgery on with Dr. Wright for a ?ring placement on his distal esophagus. Patient notes he had a colonoscopy around the same time as one of his upper scopes. Patient denies having coffee-ground emesis previously. Patient notes he was a smoker up until 1-2 weeks ago. He smoked 1 ppd of cigarettes for many years. Patient has a history of bladder cancer approximately 15 years ago. Patient denies recent changes in bowel habits. Patient notes he has been intentionally losing weight. He has lost approximately 20 pounds. He denies previous myocardial infarction, stroke and blood clots. Past Medical History Past Medical History (Chronic Problems): Chronic Problems (Last Reviewed 10/15/18 @ 05:39 by Candelario Robb MD) COPD (chronic obstructive pulmonary disease) (Chronic) Near syncope (Chronic) Orthostatic hypotension (Chronic) HTN (hypertension) (Chronic) HLD (hyperlipidemia) (Chronic) Basal cell carcinoma (Chronic) PAD (peripheral artery disease) (Chronic) Kidney calculi (Chronic) TIA (transient ischemic attack) (Chronic) Medical History: Medical History (Last Reviewed 05/17/19 @ 09:05 by Amy Jimenez PA-C) Near syncope (Chronic) R55 Orthostatic hypotension (Chronic) I95.1 HTN (hypertension) (Chronic) I10 HLD (hyperlipidemia) (Chronic) E78.5 PAD (peripheral artery disease) (Chronic) I73.9 Allergies morphine Allergy (Verified 05/15/19 21:44) Other Home Medications: Ambulatory Orders Medication Instructions Recorded Atorvastatin Calcium [Lipitor] 10 mg PO QHS 10/14/18 Gabapentin [Neurontin] 400 mg PO TIDCM 10/14/18 Omeprazole [Prilosec] 20 mg PO BID 10/14/18 Amitriptyline HCl [Elavil] 100 mg PO QHS 01/30/19 Umeclidinium Brm/Vilanterol Tr 1 ea IH DAILY 05/16/19 [Anoro Ellipta 62.5-25 Mcg INH] Surgical History: - - Hand surgery for trigger finger. Surgery on her wrist at x2. 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 Len was placed in left femur. Carotid endarterectomy. Bladder surgery for cancer. Lives: Spouse/ Significant Other Smoking Status: Current some day smoker Tobacco Use: Cigars Alcohol: None Drugs: None - *Family History Maternal Family History: Family History (Last Reviewed 05/17/19 @ 09:06 by Amy Jimenez PA-C) Father Lung cancer Brother Throat cancer Brother Stomach cancer Mother Heart problem History Items: Heart Disease Paternal Family History: Family History (Last Reviewed 05/17/19 @ 09:06 by Amy Jimenez PA-C) Father Lung cancer Brother Throat cancer Brother Stomach cancer Mother Heart problem History Items: Cancer - lung Sibling Family History: Family History (Last Reviewed 05/17/19 @ 09:06 by Amy Jimenez PA-C) Father Lung cancer Brother Throat cancer Brother Stomach cancer Mother Heart problem History Items: Cancer - throat and stomach Review of Systems Constitutional: Reports: Anorexia, Fatigue HEENT: Denies: Head Aches, Sinus Congestion, Sinus Drainage Cardiovascular: Reports: Syncope. Denies: Chest Pain, Palpitations Respiratory: Denies: Cough, Shortness of breath at rest, Sputum production Gastrointestinal: Reports: Hematemesis, Nausea. Denies: Abdominal Pain Genitourinary: Denies: Dysuria Musculoskeletal: Denies: Joint Pain, Joint Tenderness Skin: Denies: Rash, Wounds Neurological: Denies: Numbness, Tingling, Focal weakness Psychiatric: Denies: Anxiety, Depression, Homicidal Ideations, Suicidal Ideations Hematologic/ Lymphatic: Denies: Easy Bruising, Easy Bleeding Patient Problems: Active and Suspected Problems (Last Reviewed 10/15/18 @ 05:39 by Candelario Robb MD) Acute kidney injury (Acute) Frequent falls (Acute) Coffee ground emesis (Acute) - Physical Exam General: Alert, Oriented x3, Cooperative HEENT: Atraumatic, PERRLA, EOMI, Normocephalic Neck: Supple, No JVD, Negative Carotid Bruits Lungs: Clear to auscultation, Normal air movement Cardiovascular: Regular rate, No murmurs Abdomen: Soft, Non Tender, Hypoactive Bowel Sounds, Distended Extremities: No edema, Capillary Refill Less than 3 Seconds Skin: No rashes, No breakdown Musculoskeletal: No Tenderness to Palpation of Joints or Extremities Neurological: Cranial nerves II-XII grossly intact Psych/Mental Status: Normal Affect, Appropriate Vital Signs Temp Pulse Resp BP Pulse Ox 97.8 F 86 18 154/102 H 94 05/17/19 03:56 05/17/19 07:00 05/17/19 03:56 05/17/19 03:56 05/17/19 06:57 Oxygen Flow Rate (L/min) 2 Oxygen Delivery Method Room Air Weight: 179 lb 7.3 oz Body Mass Index (BMI) 25.0 Finger Stick Blood Glucose 134 Orthostatic Vital Signs Start: 05/16/19 11:00 Freq: q24h Status: Active Protocol: Activity Type Activity Date Activity User E-Sign Co-Sign Detail Recorded Client Recorded Date Recorded By Document 05/16/19 22:15 CALI [id number] 05/16/19 22:20 CALI 05/16/19 22:15 Orthostatic Vitals Standing -Blood Pressure (90/60-120/80) 175/79 H -Extremity Use Right Arm -Pulse Rate (60-100) 85 Sitting -Blood Pressure (90/60-120/80) 182/83 H -Extremity Use Right Arm -Pulse Rate (60-100) 82 Lying -Blood Pressure (90/60-120/80) 181/94 H -Extremity Use Right Arm -Pulse Rate (60-100) 81 Intake and Output for Last 24 Hours 05/15/19 05/16/19 05/17/19 23:59 23:59 23:59 Intake Total 2794 / 2794 1147 / 1147 Output Total 1600 / 1600 975 / 975 Balance 1194 / 1194 172 / 172 Laboratory Tests Past 24 Hrs 05/17/19 05/17/19 05/17/19 05:20 05:20 05:20 Hgb 14.4 Hct 43.3 Sodium 143 Potassium 4.2 Chloride 113 H Carbon Dioxide 23.0 BUN 20 H Creatinine 1.20 Estim Creat Clear Calc 61.88 Est GFR (MDRD) Af Amer 77 Est GFR (MDRD) Non-Af 64 BUN/Creatinine Ratio 16.7 Glucose 106 Calcium 8.2 L Phosphorus 2.4 L Magnesium 1.7 Albumin 2.8 L Blood Type Antibody Screen 05/17/19 07:20 Hgb Hct Sodium Potassium Chloride Carbon Dioxide BUN Creatinine Estim Creat Clear Calc Est GFR (MDRD) Af Amer Est GFR (MDRD) Non-Af BUN/Creatinine Ratio Glucose Calcium Phosphorus Magnesium Albumin Blood Type Pending Antibody Screen Pending Assessment/Plan All Active Problems (Last Reviewed 10/15/18 @ 05:39 by Candelario Robb MD) Acute kidney injury (Acute) Frequent falls (Acute) Coffee ground emesis (Acute) Bladder cancer (Acute) Syncope (Acute) Hypotension (Acute) I am seeing this patient in conjunction with Dr. Ag Impression: New onset of Coffee-ground emesis, unknown etiology. Hiatal hernia. Scheduled for surgery for hiatal hernia repair this week Plan: Discussed patient with Dr. Ag. Dr. Ag will plan to perform an upper scope with possible biopsies. Procedure details, risks and benefits have been reviewed. Patient denies any questions. Attempted to contact the and went to voicemail. Patient has had the opportunity to ask and have questions answered. Patient verbally understands and agrees with the plan. Thank you for allowing us to participate in this patient's care. Code Visit Office Visits / Consults: [id number] IP Consult L3
[2019-05-17] MEDS: proMETHazine 25 MG/ML Syringe 12.5 MG IV (08:17)
--- NOTE | 2019-05-17 08:36 | EKG12_ITS ---
Test Reason : PRE-OP Blood Pressure : / mmHG Vent. Rate : 085 BPM Atrial Rate : 085 BPM P-R Int : 166 ms QRS Dur : 104 ms QT Int : 406 ms P-R-T Axes : 020 003 034 degrees QTc Int : 483 ms Normal sinus rhythm Prolonged QT Abnormal ECG Confirmed by GUS FLEMING, MARK ([id number]), editor sound CHAUNCEY OSORIO ([id number]) on 05/20/2019 10:35:03 AM Referred By: DANIEL Confirmed By:MARK WEBER MD
[2019-05-17] MEDS: hydrALAZINE 20 MG/ML Vial 5 MG IV (08:54)
--- NOTE | 2019-05-17 10:30 | EGD_PTH ---
PATIENT: ERICA BAZZI LOC: MS3 U#:[id number] AGE/SX: 68/M ROOM: [facility] [place] RE05/16/[address]: Dr. Mitzi Chan MD : 1950 BED: 1 DIS: 05/18/2019 SPEC #: [id number] RECD: 05/17/19 11:04 STATUS: LLOYD RE #: [id number] ELY: 05/17/19 10:[address]: Lanie Ag DEPT: SURGICAL PATHOLOGY RECD BY: Barbara Mae ENTERED: 05/17/19 11:57 SP TYPE: EGD BIOPSY OTHR DR: MD Dr. Taisha Dunne MD Dr. Autumn L White, MD Dr. Christine Lee, DO Dr. Tamera Robotham, MD Tissues: POLYP Procedures: Surgery Specimen Level IV Comments: @ Ordering doctor for SUIV edited from to @ by VENU at 05/17/19 1206 @ Submitting doctor edited from to @ by RGOOD at 05/17/19 1206 HEADER OPERATION: EGD ([facility] [place]) PRE-OP DIAGNOSIS: Coffee ground emesis TISSUE SUBMITTED: Biopsy of gastric polyp for H. pylori and path MICROSCOPIC DIAGNOSIS Gastric polyp, biopsy: Consistent with fragments of fundic gland polyp with mucosal congestion and hemorrhage. YESSY:louisa 05/18/19 COMMENT The results of immunohistochemistry for Helicobacter pylori will be reported separately ([id number]). MICROSCOPIC DESCRIPTION Slides are reviewed. GROSS DESCRIPTION Received in fixative is one container labeled with the patient's name and designated biopsy gastric polyp. The specimen consists of multiple irregular fragments of light conner soft tissue that in aggregate measure 1 x 0.4 x 0.1 cm. The specimen is totally submitted in one cassette. / YESSY:louisa 05/17/19 TC:5 CPT: 34778
--- NOTE | 2019-05-17 10:30 | IMM_PTH ---
PATIENT: ERICA BAZZI LOC: MS3 U#:[id number] AGE/SX: 68/M ROOM: [facility] [place] RE05/16/[address]: Dr. Mitzi Chan MD : 1950 BED: 1 DIS: 05/18/2019 SPEC #: [id number] RECD: 05/17/19 12:05 STATUS: LLOYD REQ #: [id number] ELY: 05/17/19 10:[address]: Lanie Ag DEPT: IMMUNOHISTOCHEMISTRY RECD BY: Zoraida Badillo ENTERED: 05/17/19 12:05 SP TYPE: IMMUNO OTHR DR: MD Dr. Taisha Dunne MD Dr. Autumn L White, MD Dr. Christine Lee, DO Tissues: Stomach, NOS Procedures: H Pylori (initial) PHYSICIAN & INSTITUTION [place] [address] SPECIMEN INFORMATION: Tissue Source: Biopsy of gastric polyp Clinical Info: Blayne-ground emesis Specimen Number: [id number] CPT code: 83996 METHODOLOGY: Deparaffinized sections of prefer/formalin-fixed tissue or PAP/DQ stained slides are incubated with monoclonal/polyclonal antibodies/oligonucleotide probes. Localization is made via biotin free immunoperoxidase method. Appropriate controls are performed and reacted as expected. Results on target cell population are indicated in the following table: RESULTS: ANTIBODY / CLONE RESULT H Pylori (polyclonal) negative These tests were developed and their performance characteristics determined by [facility]. They may not have been cleared or approved by the U.S. Food and Drug Administration. The FDA has determined that such clearance or approval is not necessary. INTERPRETATION: Gastric polyp, biopsy: Negative for Helicobacter pylori organisms. SJ:louisa 05/18/19
--- NOTE | 2019-05-17 10:34 | OP.ENDO_ITS ---
05/17/2019 Lalit Kimbrough MD [id number] [place] [address] Re : Upper GI endoscopy procedure for Kinney Sriram Dear Dr. Kimbrough This procedure was performed on Friday, May 17, 2019. My impressions and recommendations are as follows: Impressions : - Small hiatal hernia. - A single gastric polyp. Resected and retrieved. - Normal examined duodenum. Recommendations : - [facility] to [facility] for [facility] care. - Clear liquid diet [Duration]. - Use Protonix (pantoprazole) 40 mg IV BID while in hospital [duration]. - Continue present medications. - No aspirin, ibuprofen, naproxen, or other non-steroidal anti-inflammatory drugs. My findings are described in the full procedure note, which is enclosed. If I can be of further assistance, please feel free to contact me at Doctor phone number(s): , Work: . Sincerely, MD Lanie Cox MD 05/17/2019 10:34:16 AM This report has been signed electronically.
--- NOTE | 2019-05-17 10:36 | CASEMGMT ---
Attempted twice to patient bedside to do Initial Assessment, patient not in room both times, at procedure. Updated primary [place] Carpenter. HECTOR Woodson
[2019-05-17 11:47] LABS: Hematocrit 43.9 % (40-54); Hemoglobin 14.3 g/dl (13.0-16.5)
--- NOTE | 2019-05-17 14:50 | EEG ---
- Electroencephalogram Date of service 05/17/2019 History EEG is being done in this 68 yr M to rule out seizures EEG Description: This is an 18 channel EEG with 10-20 lead placement system. Bipolar montages and Referential montages were reviewed. Photic stimulation and Hyperventilation were performed. The posterior dominant rhythm is 7 HZ synchronous, symmetric, reacting to eye opening and closing. Photo stimulation elicited normal driving response but no abnormal photoparoxysmal response, Hyperventilation did not elicit any abnormal photoparoxysmal response. Sleep was identified. There is abnormal background slowing noted in the theta frequency range. There was no epileptiform discharges or electrographic seizures noted during this recording. EEG Interpretation This is an abnormal EEG due to mild generalized background slowing. This can be seen with generalized cerebral dysfunction like metabolic/toxic encephalopathy. Clinical correlation is advised. There is no epileptiform discharges or electrographic seizures noted during the record.
[2019-05-17] MEDS: BACITRACIN/POLYMYXIN B 15 GM Tube 1 APPLIC TOPICAL ×2 (15:48→21:21)
--- NOTE | 2019-05-17 15:58 | NURSING ---
PT INFORMED OF ADVANCEMENT TO CLEAR LIQ DIET. CL LIQ PROVIDED AND PT NOTED TO BE EATING A PEACH. WILL MONITOR.
--- NOTE | 2019-05-17 17:03 | MRI_ITS ---
HISTORY: Increasing falls and imbalance x 2 months TECHNIQUE: Routine [place] [facility] [place]/brain 3D time of flight MR angiogram protocol was performed without gadolinium. 3D reconstructions were reviewed. COMPARISON: None FINDINGS: # of images incl. paperwork: 193 Flow is present within bilateral intracranial ICA, HARPER, MCA, vertebral, superior cerebellars, the basilar artery, and the violent crimes detective. The anterior communicating artery is patent. Bilateral posterior communicating arteries are patent bilaterally. No aneurysms, stenoses, occlusions, nor dissections. MRI/MRA Head ONLY without Contrast IMPRESSION: Normal. at 0335 Reported and signed by: Augie Armstrong MD Electronically Signed: Augie Armstrong MD at 3:34 EDT Tel , Service support ,
--- NOTE | 2019-05-17 17:03 | MRI_ITS ---
HISTORY: Increasing falls and imbalance x 2 months TECHNIQUE: Routine brain MR protocol was performed without gadolinium. COMPARISON: CT scan of the brain from May 15, 2019 FINDINGS: # of images incl. paperwork: 287 Brain is atrophic. No acute ischemia. No masses or herniations. Periventricular deep and subcortical white matter disease. No acute intracranial hemorrhage. No masses or herniations. Orbits and globes are normal. No hydrocephalus. MRI/Brain without Contrast IMPRESSION: No acute ischemia. No acute intracranial hemorrhage. No hydrocephalus. at 0421 Reported and signed by: Augie Armstrong MD Electronically Signed: Augie Armstrong MD at 4:20 EDT Tel , Service support ,
--- NOTE | 2019-05-17 17:03 | MRI_ITS ---
HISTORY: Increasing falls and imbalance x 2 months. Previous left carotid endarterectomy EXAMINATION: MRA Neck W/O Contrast TECHNIQUE: Routine non-contrast [id number] Carotid MR angiogram protocol was performed without gadolinium. 3D reconstructions were reviewed. Nascet criteria using the distal ICAs for comparison were used for evaluation of stenoses. IV Contrast dosage and agent: None. COMPARISON: None FINDINGS: AORTIC ARCH AND BRANCHES: No significant stenosis at the visualized portions. RIGHT CCA: No occlusion, significant stenosis or dissection. RIGHT ICA: No occlusion, significant stenosis or dissection. LEFT CCA: No occlusion, significant stenosis or dissection. LEFT ICA: There appears to be a stenosis at the left carotid bulb. Within the left carotid bulb [place]. The narrowest diameter of the vessel to be 3 mm. More distally the vessel is still only a 3 mm, consistent without a stenosis, however, there is a fairly rapid changing caliber of the vessel at the carotid bulb suggesting that there may be calcific plaque within this region causing stenosis and diminished flow downstream from the stenosis. A confirmatory test may be necessary. RIGHT VERTEBRAL ARTERY: No occlusion, significant stenosis or dissection. LEFT VERTEBRAL ARTERY: Left vertebral artery is not identified which could be due to occlusion. Mrs. occlusion is of unknown acuity No evidence of acute injury of the major arterial system of the neck. 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 Possible stenosis of the left carotid bulb of the left ICA. Conservator confirmatory test. This could be CT angiography or digital subtraction angiography. at [id number] Reported and signed by: Augie Armstrong MD Electronically Signed: Augie Armstrong MD at 4:44 EDT Tel , Service support ,
[2019-05-17] MEDS: Na Biphos/Potassium Phosphate PACKET 1 PACKET PO ×2 (17:54→21:22)
[2019-05-17] MEDS: Gabapentin 400 MG Capsule PO (17:54)
[2019-05-17] MEDS: 0.9% Normal Saline 1,000 ML 125 ML IV (17:57)
[2019-05-17 18:03] LABS: T4 Free Direct 1.36 ng/dL (0.76-1.46); Thyroid Stim Hormone (TSH) 1.07 uIU/mL (0.358-3.74)
[2019-05-17] MEDS: Ipratropium/Albuterol Sulfate 3 ML AMPUL.NEB INHALATION (19:13)
[2019-05-17 19:24] LABS: Hemoglobin 14.9 g/dl (13.0-16.5)
--- NOTE | 2019-05-17 19:33 | NURSING ---
MRI taking patient off the floor at this time.
--- NOTE | 2019-05-17 21:01 | NURSING ---
Patient returned from MRI at this time.
[2019-05-17] MEDS: Atorvastatin Calcium 10 MG Tablet PO (21:21)
[2019-05-17] MEDS: Amitriptyline 100 MG Tablet PO (21:21)
--- NOTE | 2019-05-17 23:35 | PCM.CONS.R ---
Consultation - Renal 05/17/19 PCP/ Referring MD: Requesting physician: [] Primary care physician: Lizabeth Ruiz MD Reason for Consultation:: DAWN on CKD stage 3 - History of Present Illness History of Present Illness: The patient is a 68 year old M with past medical history of hypertension, hyperlipidemia, PAD status post femoral surgery and stent, history of nonobstructing kidney stones, bladder cancer s/p surgery 20 years ago at [place] admitted for confusion, headache, weakness and recurrent falls ongoing for 1 month but progressively getting worse. He complained of severe headaches for several days.He denied chest pain, dizziness or palpitations, nausea or vomiting. He had poor intake with headaches. Creatinine on admit was elevated at 2.6 improved to 1.2. He received iv fluids. Admits to poor appetite. He was scheduled for Linx procedure for his HH but declined. He continues to have reflux. He has a history of NSAID use, on Losartan for hypertension. CT of the brain shows no acute intracranial abnormality. Chest x-ray shows chronic interstitial lung changes, no acute cardiopulmonary process. - Allergies Allergies: Allergies morphine Allergy (Verified 05/15/19 21:44) Other - Current Medications Current Medications: Current Medications Acetaminophen (Tylenol) 650 mg PO Q6H PRN PRN PRN Reason: Mild pain 1-3/Temp > 100.7 F Last Admin: 05/16/19 22:30 Dose: 650 mg Documented by: Al Hydroxide/Mg Hydroxide (Mylanta Ii) 30 ml PO Q6H PRN PRN PRN Reason: Gastric Burning Last Admin: 05/17/19 03:59 Dose: 30 ml Documented by: Albuterol Sulfate (Ventolin Aerosols) 2.5 mg INHALATION Q2H PRN PRN PRN Reason: dyspnea, wheezing Albuterol/Ipratropium (Duoneb) 3 ml INHALATION Q6HWA.RT YELENA Last Admin: 05/17/19 19:13 Dose: 3 ml Documented by: Amitriptyline HCl (Elavil) 100 mg PO QHS YELENA Last Admin: 05/17/19 21:21 Dose: 100 mg Documented by: Atorvastatin Calcium (Lipitor) 10 mg PO QHS YELENA Last Admin: 05/17/19 21:21 Dose: 10 mg Documented by: Bacitracin/Polymyxin B Sulfate (Polysporin Ointment) 1 applic TOPICAL TID YELENA; Protocol Last Admin: 05/17/19 21:21 Dose: 1 applicatio Documented by: Gabapentin (Neurontin) 400 mg PO TIDCM [facility] Last Admin: 05/17/19 17:54 Dose: 400 mg Documented by: Hydralazine HCl (Apresoline Iv) 5 mg IV Q6H PRN PRN PRN Reason: BLOOD PRESSURE Last Admin: 05/17/19 08:54 Dose: 5 mg Documented by: Pantoprazole Sodium 40 mg/ (Sodium Chloride) 110 mls @ 330 mls/hr IV Q12 [facility] Last Admin: 05/17/19 21:21 Dose: 330 mls/hr Documented by: Sodium Chloride () 1,000 mls @ 125 mls/hr IV .Q8H [facility] Last Admin: 05/17/19 17:57 Dose: 125 mls/hr Documented by: Magnesium Hydroxide (Milk Of Magnesia) 30 ml PO DAILY PRN PRN PRN Reason: Constipation Melatonin (Melatonin) 3 mg PO QHS PRN PRN PRN Reason: INSOMNIA Nicotine (Nicoderm Cq (Pbkc)) 14 mg TRANSDERM. DAILY [facility] Last Admin: 05/17/19 11:39 Dose: Not Given Documented by: Nitroglycerin (Nitrostat) 0.4 mg SUBLINGUAL Q5M PRN PRN Reason: CARDIAC/CHEST PAIN Ondansetron HCl (Zofran) 4 mg IV Q8H PRN PRN PRN Reason: NAUSEA/VOMITING Last Admin: 05/17/19 00:01 Dose: 4 mg Documented by: Potassium Phos/Sodium Phos (Neutra-Phos Packet) 1 packet PO 4X/DAY [facility] Last Admin: 05/17/19 21:22 Dose: 1 packet Documented by: Sodium Chloride () 10 - 40 ml IV UD PRN PRN Reason: SALINE FLUSH Last Admin: 05/16/19 22:30 Dose: 10 ml Documented by: - Past Medical History Past Medical History (Chronic Problems): Chronic Problems (Last Reviewed 05/17/19 @ 09:05 by Amy Jimenez PA-C) COPD (chronic obstructive pulmonary disease) (Chronic) Near syncope (Chronic) Orthostatic hypotension (Chronic) HTN (hypertension) (Chronic) HLD (hyperlipidemia) (Chronic) Basal cell carcinoma (Chronic) PAD (peripheral artery disease) (Chronic) Kidney calculi (Chronic) TIA (transient ischemic attack) (Chronic) - Past Surgical History Surgical History: - - Hand surgery for trigger finger. Surgery on her wrist at x2. 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 Len was placed in left femur. Carotid endarterectomy. Bladder surgery for cancer. - Social History Marital Status: Smoking Status: Current every day smoker - 1PPW Alcohol: None Drugs: None - Family History Maternal Family History: Family History (Last Reviewed 05/17/19 @ 09:06 by Amy Jimenez PA-C) Father Lung cancer Brother Throat cancer Brother Stomach cancer Mother Heart problem History Items: Heart Disease Paternal Family History: Family History (Last Reviewed 05/17/19 @ 09:06 by Amy Jimenez PA-C) Father Lung cancer Brother Throat cancer Brother Stomach cancer Mother Heart problem History Items: Cancer - lung Sibling Family History: Family History (Last Reviewed 05/17/19 @ 09:06 by Amy Jimenez PA-C) Father Lung cancer Brother Throat cancer Brother Stomach cancer Mother Heart problem History Items: Cancer - throat and stomach Review of Systems Constitutional: Reports: Anorexia, Weakness. Denies: Chills, Fever Eyes: Denies: Vision Change HEENT: Reports: Head Aches. Denies: Difficulty Hearing Cardiovascular: Denies: Chest Pain, Edema Gastrointestinal: Reports: Vomiting, - - anorexia. Denies: Abdominal Pain, Nausea Musculoskeletal: Denies: Joint swelling Neurological: Denies: Balance problems, Tremor, Seizures Patient Problems: Active and Suspected Problems (Last Reviewed 05/17/19 @ 09:05 by Amy Jimenez PA-C) Acute kidney injury (Acute) Frequent falls (Acute) Coffee ground emesis (Acute) - Physical Exam General: Alert, Oriented x3, Cooperative, No apparent distress Lungs: Clear to auscultation Cardiovascular: Regular rate Abdomen: Bowel Sounds Present, Soft, Non Tender, Non-Distended Extremities: No edema Psych/Mental Status: Normal Affect, Appropriate, Alert and oriented to time, place, person, mood and affect Vital Signs Temp Pulse Resp BP Pulse Ox 97.6 F L 79 18 156/98 H 93 05/17/19 21:05 05/17/19 21:05 05/17/19 21:05 05/17/19 21:05 05/17/19 21:05 Oxygen Flow Rate (L/min) 2 Oxygen Delivery Method Room Air Weight: 81.4 kg Body Mass Index (BMI) 25.0 Finger Stick Blood Glucose 134 Orthostatic Vital Signs Start: 05/16/19 11:00 Freq: q24h Status: Active Protocol: Activity Type Activity Date Activity User E-Sign Co-Sign Detail Recorded Client Recorded Date Recorded By Document 05/17/19 21:05 BLB [id number] 05/17/19 22:08 BLB 05/17/19 21:05 Orthostatic Vitals Standing -Blood Pressure (90/60-120/80) 132/77 H -Extremity Use Right Arm -Pulse Rate (60-100) 86 Sitting -Blood Pressure (90/60-120/80) 163/93 H -Extremity Use Right Arm -Pulse Rate (60-100) 84 Lying -Blood Pressure (90/60-120/80) 156/98 H -Extremity Use Right Arm -Pulse Rate (60-100) 79 Intake and Output for Last 24 Hours 05/15/19 05/16/19 05/17/19 23:59 23:59 23:59 Intake Total 2794 / 2794 2867 / 2867 Output Total 1600 / 1600 975 / 975 Balance 1194 / 1194 1892 / 1892 Laboratory Tests Past 24 Hrs 05/17/19 05/17/19 05/17/19 05:02 05:20 05:20 Hgb 14.4 Hct 43.3 Sodium 143 Potassium 4.2 Chloride 113 H Carbon Dioxide 23.0 BUN 20 H Creatinine 1.20 Estim Creat Clear Calc 61.88 Est GFR (MDRD) Af Amer 77 Est GFR (MDRD) Non-Af 64 BUN/Creatinine Ratio 16.7 Glucose 106 Calcium 8.2 L Phosphorus 2.4 L Magnesium Albumin 2.8 L TSH 1.07 Free T4 1.36 Blood Type Antibody Screen 05/17/19 05/17/19 05/17/19 05:20 07:20 11:20 Hgb 14.3 Hct 43.9 Sodium Potassium Chloride Carbon Dioxide BUN Creatinine Estim Creat Clear Calc Est GFR (MDRD) Af Amer Est GFR (MDRD) Non-Af BUN/Creatinine Ratio Glucose Calcium Phosphorus Magnesium 1.7 Albumin TSH Free T4 Blood Type B POSITIVE Antibody Screen NEGATIVE 05/17/19 19:15 Hgb 14.9 Hct 45.0 Sodium Potassium Chloride Carbon Dioxide BUN Creatinine Estim Creat Clear Calc Est GFR (MDRD) Af Amer Est GFR (MDRD) Non-Af BUN/Creatinine Ratio Glucose Calcium Phosphorus Magnesium Albumin TSH Free T4 Blood Type Antibody Screen Assessment/Plan All Active Problems (Last Reviewed 05/17/19 @ 09:05 by Amy Jimenez PA-C) Acute kidney injury (Acute) Frequent falls (Acute) Coffee ground emesis (Acute) Bladder cancer (Acute) Syncope (Acute) Hypotension (Acute) 1. DAWN on CKD likely prerenal, dehydration. Baseline creatinine 1.4 but improved to 1.2. 2. HTN stable 3. Headaches neurology consulted. 4. Nonobstructing kidney stones 5. Hiatal hernia with continued reflux symptoms. GS consulted.
[2019-05-18] VITALS (10 sets, daily range): BP systolic 114–161; BP diastolic 54–85; PULSE 78–92; RESP 18; TEMP 36.6–36.8; O2SAT 92–96
[2019-05-18 01:23] LABS: Hemoglobin 14.4 g/dl (13.0-16.5)
[2019-05-18] MEDS: 0.9% Normal Saline 1,000 ML 125 ML IV ×2 (03:53→16:57)
[2019-05-18] MEDS: BACITRACIN/POLYMYXIN B 15 GM Tube 1 APPLIC TOPICAL ×2 (05:08→16:53)
[2019-05-18 05:56] LABS: Hematocrit 42.8 % (40-54); Hemoglobin 14.1 g/dl (13.0-16.5); Mean Corp Hgb Conc 32.9 g/gl (32-36); Mean Corpuscular Hgb 31.3 pg (27.0-32.0); Mean Corpuscular Volume 95.1 fL (80-94); Mean Platelet Vol. 9.2 fl (6.2-12.0); Platelet Count 284 K/mm3 (150-450); RBC Distribution Width CV 13.7 % (11.6-14.6); RBC Distribution Width SD 46.2 fl (35.1-43.9)
[2019-05-18 06:03] LABS: Scan Indicated on CBC? Y/N NO
[2019-05-18 06:14] LABS: Albumin, Serum 2.8 g/dL (3.2-5.0); BUN 10 mg/dL (7-18); BUN/Creat Ratio 9.3 RATIO (10-20); Calcium,Total 8.2 mg/dL (8.5-10.1); Chloride 114 mmol/L (98-107); Cholesterol 151 mg/dL (200); Creatinine, Serum 1.07 mg/dL (0.70-1.30); EST Glomerular Filtration Rate 73 mL/min (>60); Est Glom Filt Rate - Afr Amer 88 mL/min (>60); Glucose 83 mg/dL (74-106); High Density Lipoprotein 42 mg/dL; Phosphorus 2.2 mg/dL (2.5-4.9); Potassium 3.8 mmol/L (3.5-5.1); Sodium Level 143 mmol/L (136-145); Triglycerides 118 mg/dL; Very Low Density Lipoprotein 24 mg/dL (5-40)
--- NOTE | 2019-05-18 06:18 | PN_ITS ---
Patient Problems: Active and Suspected Problems (Last Reviewed 05/17/19 @ 09:05 by Amy Jimenez PA-C) Acute kidney injury (Acute) Frequent falls (Acute) Coffee ground emesis (Acute) Subjective: Patient with no acute events overnight per self and per nursing report but still intermittently confused although does answer orientation questions appropriately. notes concerns that she feels as though he has dementia or some underlying process that is been steadily worsening over the last several months. Patient has no further nausea, emesis and has tolerated diet which has been advanced per surgery clearance. Discussed plan of care which included neurology assessment and possibly further imaging she was amenable. Patient denies fevers, chills, nausea, emesis, abdominal pain, chest pain or dyspnea. Objective: Physical Examination: General: awake, alert, oriented x 3, although from discussion some recall issues, mildly irritable but remains cooperative, seated upright in the bedside chair, no acute distress. Skin: Mildly pale color, turgor, no icterus, cyanosis. HEENT: AT/NC, EOMI, PERRLA, MMM. Lungs: CTA bilaterally, moderate effort, moderate decrease BL bases, no rales, ronchi or wheezing. Heart: Regular rate and rhythm; no gallop, rub audible. Abdomen: soft, NTTP, NS, normalized BS. Extremities: no cyanosis, clubbing, or edema. Neurological: patient awake, alert, oriented as noted; cognitive function improved, notes he has had recall issues for several months, stable currently; pupils equally reactive to light and accomodation; cranial nerves II- XII grossly normal, moving all 4 extremities, no focal deficits, strength improved, moderately globally decreased secondary to acute presentation. Psychiatric: affect appears fatigued, no acute evidence of depressive or anxiety feelings. Vitals/I&O's: Vital Signs Temp Pulse Resp BP Pulse Ox 98.3 F 78 18 114/54 L 95 05/18/19 02:04 05/18/19 02:12 05/18/19 02:04 05/18/19 02:04 05/18/19 02:04 Oxygen Flow Rate (L/min) 2 Oxygen Delivery Method Room Air Weight: 179 lb 7.3 oz Body Mass Index (BMI) 25.0 Finger Stick Blood Glucose 134 Orthostatic Vital Signs Start: 05/16/19 11:00 Freq: q24h Status: Active Protocol: Activity Type Activity Date Activity User E-Sign Co-Sign Detail Recorded Client Recorded Date Recorded By Document 05/17/19 21:05 BLB [id number] 05/17/19 22:08 BLB 05/17/19 21:05 Orthostatic Vitals Standing -Blood Pressure (90/60-120/80) 132/77 H -Extremity Use Right Arm -Pulse Rate (60-100) 86 Sitting -Blood Pressure (90/60-120/80) 163/93 H -Extremity Use Right Arm -Pulse Rate (60-100) 84 Lying -Blood Pressure (90/60-120/80) 156/98 H -Extremity Use Right Arm -Pulse Rate (60-100) 79 Intake and Output for Last 24 Hours 05/16/19 05/17/19 05/18/19 23:59 23:59 23:59 Intake Total 2794 / 2794 3632 / 3632 714 / 714 Output Total 1600 / 1600 975 / 975 500 / 500 Balance 1194 / 1194 2657 / 2657 214 / 214 Laboratory Results 05/17/19 05:02: TSH 1.07, Free T4 1.36 05/17/19 05:20: Magnesium 1.7 05/17/19 07:20: Blood Type B POSITIVE, Antibody Screen NEGATIVE 05/17/19 11:20: Hgb 14.3, Hct 43.9 05/17/19 19:15: Hgb 14.9, Hct 45.0 05/18/19 01:15: Hgb 14.4, Hct 43.0 05/18/19 05:35: Sodium 143, Potassium 3.8, Chloride 114 H, Carbon Dioxide 26.0, Anion Gap Cancelled, BUN 10, Creatinine 1.07, Estim Creat Clear Calc 69.40, Est GFR (MDRD) Af Amer 88, Est GFR (MDRD) Non-Af 73, BUN/Creatinine Ratio 9.3 L, Glucose 83, Calcium 8.2 L, Phosphorus 2.2 L, Albumin 2.8 L, Triglycerides 118, Cholesterol 151, LDL Cholesterol 85, VLDL Cholesterol 24, HDL Cholesterol 42 05/18/19 05:35: WBC 6.0, RBC 4.50 L, Hgb 14.1, Hct 42.8, MCV 95.1 H, MCH 31.3, MCHC 32.9, RDW 13.7, RDW Differential 46.2 H, Plt Count 284, MPV 9.2 Current Medications Acetaminophen (Tylenol) 650 mg PO Q6H PRN PRN PRN Reason: Mild pain 1-3/Temp > 100.7 F Last Admin: 05/16/19 22:30 Dose: 650 mg Documented by: Al Hydroxide/Mg Hydroxide (Mylanta Ii) 30 ml PO Q6H PRN PRN PRN Reason: Gastric Burning Last Admin: 05/17/19 03:59 Dose: 30 ml Documented by: Albuterol Sulfate (Ventolin Aerosols) 2.5 mg INHALATION Q2H PRN PRN PRN Reason: dyspnea, wheezing Albuterol/Ipratropium (Duoneb) 3 ml INHALATION Q6HWA.RT [facility] Last Admin: 05/17/19 19:13 Dose: 3 ml Documented by: Amitriptyline HCl (Elavil) 100 mg PO QHS [facility] Last Admin: 05/17/19 21:21 Dose: 100 mg Documented by: Atorvastatin Calcium (Lipitor) 10 mg PO QHS [facility] Last Admin: 05/17/19 21:21 Dose: 10 mg Documented by: Bacitracin/Polymyxin B Sulfate (Polysporin Ointment) 1 applic TOPICAL TID [facility]; Protocol Last Admin: 05/18/19 05:08 Dose: 1 applicatio Documented by: Gabapentin (Neurontin) 400 mg PO TIDCM [facility] Last Admin: 05/17/19 17:54 Dose: 400 mg Documented by: Hydralazine HCl (Apresoline Iv) 5 mg IV Q6H PRN PRN PRN Reason: BLOOD PRESSURE Last Admin: 05/17/19 08:54 Dose: 5 mg Documented by: Pantoprazole Sodium 40 mg/ (Sodium Chloride) 110 mls @ 330 mls/hr IV Q12 [facility] Last Admin: 05/17/19 21:21 Dose: 330 mls/hr Documented by: Sodium Chloride () 1,000 mls @ 125 mls/hr IV .Q8H [facility] Last Admin: 05/18/19 03:53 Dose: 125 mls/hr Documented by: Magnesium Hydroxide (Milk Of Magnesia) 30 ml PO DAILY PRN PRN PRN Reason: Constipation Melatonin (Melatonin) 3 mg PO QHS PRN PRN PRN Reason: INSOMNIA Nicotine (Nicoderm Cq (Pbkc)) 14 mg TRANSDERM. DAILY YELENA Last Admin: 05/17/19 11:39 Dose: Not Given Documented by: Nitroglycerin (Nitrostat) 0.4 mg SUBLINGUAL Q5M PRN PRN Reason: CARDIAC/CHEST PAIN Ondansetron HCl (Zofran) 4 mg IV Q8H PRN PRN PRN Reason: NAUSEA/VOMITING Last Admin: 05/17/19 00:01 Dose: 4 mg Documented by: Potassium Phos/Sodium Phos (Neutra-Phos Packet) 1 packet PO 4X/DAY YELENA Last Admin: 05/17/19 21:22 Dose: 1 packet Documented by: Sodium Chloride () 10 - 40 ml IV UD PRN PRN Reason: SALINE FLUSH Last Admin: 05/16/19 22:30 Dose: 10 ml Documented by: Medical Necessity - Tobacco Use Smoking Status: Current every day smoker - 1PPW Tobacco Use: Cigars Assessment/Plan All Active Problems (Last Reviewed 05/17/19 @ 09:05 by Amy Jimenez PA-C) Acute kidney injury (Acute) Frequent falls (Acute) Coffee ground emesis (Acute) Bladder cancer (Acute) Syncope (Acute) Hypotension (Acute) The patient is a 68 y/o M w/ PMHx: Chronic COPD, GERD w/ Hx GI Bleed w/ ulcers unclear type, PAD, HTN, HLD, Orthostatic hypotension w/ history of syncope, Hx TIA who presents to the [facility] ED on 05/16/19 with history of weakness, debility and recurrent falls. (1) Current falls, debility, questionable near syncope versus seizure activity versus underlying cognitive impairment: EKG in ED w/ sinus rhythm without evidence of acute ischemia, CXR w/ no acute cardiopulmonary findings, CT brain without acut findings, initial trop normal. Admitted to [facility], maintained on fall precautions, orthostatic now VS + with IVFs administered, ECHO w/ normal LV size, moderate concentric LVH, EF 55%, LV systolic function normal, stage I diastolic dysfunction, EEG with generalized slowing with no obvious epileptic findings, MRI brain with no acute evidence cute intracranial finding, MRA head unremarkable, MRA neck with apparent occlusion of the left vertebral artery, possible stenosis of the left carotid bulb of the left ICA with recommendation for follow-up CTA. 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 Neurology consultation with requested CTA head and neck, cervical MRI as well as lumbar MRI. Once completed pending findings per discussion with Neurology would plan to discharge to home without outpatient PT/OT and neurology follow-up. Will continue statin, clarifying home antiplt therapy which had been held secondary to planned hiatal hernia surgery this week and will restart. (2) Acute kidney injury: Unclear specific etiology, possibly poor intake. Admission BUN/Cr 30/2.60, prior baseline creatinine noted to be 1.5. Renal US w/ BL renal cysts, including a septated cyst in the left kidney, BL nonobstructing stones measuring up to 1.3 cm on the right w/ no hydronephrosis. Hydrated, held nephrotoxic medications and repeat chemistry with resolution. 05/18/19 BUN/Cr 10/1.07. Planned CTA head and neck as noted per Neurology request, will need to closely monitor function, patient adamant about discharge to home later today thus would need outpatient BMP. (3) ? Coffee ground emesis w/ ? GI bleed, Hx Prior w/ Hx unclear ulcer: Initially concerned, obtained serial HH which remained stable, PPI continued, 05/17/19 EGD w/ no obvious source of bleeding, but noted dark material and debris. Small stomach polyp noted, removed. Initially clears which was advanced to regular diet, tolerated. Patient prior to admit had been planning upcoming hiatal hernia surgery; however, given his presentation deferred. (4) Recent Distal Nasal Tip Cellulitis: Patient and mentioned he had recently been on bactrim secondary to infected nasal tip per PCP. Given recent DAWN deferred restart, well appearing, started topical abx therapy. (5) Acute metabolic encephalopathy, Multifactorial: [place] likely secondary to acute kidney injury with suspected underlying cognitive impairment, no evidence GI bleed noted on EGD and recent outpatient c-scope unremarkable. Continue treatment as noted above. Restarted gabapentin, elavil regimen given improvement. (6) PAD: Notes history of BL LE stents, had held antiplt therapies for upcoming surgeries, will clarify regimen given #1 and restart. (7) Chronic COPD: ATC duonebs, PRN albuterol, HOB, IS parameters. (8) Tobacco Abuse: Encouraged cessation, inpatient consultation per RT, NR if desired. (9) Hyperlipidemia: Continue home statin regimen. (10) DVT prophylaxis: SCDs, lovenox given stable Hgb, no evidence GI bleed. Code Visit Inpatient E&M: 21176 Subs Hosp L3
--- NOTE | 2019-05-18 06:30 | NURSING ---
mri notified that Dr. Chan would like a read on pt MRI this am
[2019-05-18] MEDS: Ipratropium/Albuterol Sulfate 3 ML AMPUL.NEB INHALATION ×2 (07:25→13:12)
[2019-05-18] MEDS: Gabapentin 400 MG Capsule PO ×3 (08:21→16:54)
[2019-05-18] MEDS: Na Biphos/Potassium Phosphate PACKET 1 PACKET PO ×2 (08:22→16:52)
--- NOTE | 2019-05-18 13:17 | CT_ITS ---
STUDY: CTA HEAD AND NECK WITH CONTRAST REASON FOR EXAM: Male, 68 years old. Weakness and frequent falls RADIATION DOSAGE (If Supplied By Facility): CTDIvol = ( 28.95 ) mGy, DLP = ( 1627.74 ) mGycm TECHNIQUE: CT angiography was performed with a multi-detector CT scanner. Data acquisition was obtained from the skull base through the vertex following intravenous administration of 75mL IV Isovue 370. MIP images were reconstructed from the axial data set. Post-processing of the angiographic images was performed, with multiplanar reformation and 3D reconstruction. Individualized dose optimization techniques were used for this CT. COMPARISON: No relevant priors. FINDINGS: Normal bilateral petrous carotid arteries. Calcific plaquing of the right cavernous carotid artery with a normal supraclinoid bifurcation. Calcific plaquing of the left cavernous carotid artery with a normal supraclinoid bifurcation. Normal right A1 segments of the anterior cerebral artery. Normal left A1 segments of the anterior cerebral artery. Normal intact anterior communicating artery (ACOM). Normal bilateral A2 segments of the anterior cerebral arteries. Normal right M1 and M2 segments of the middle cerebral arteries, with a normal M1 bifurcation. Normal left M1 and M2 segments of the middle cerebral arteries, with a normal M1 bifurcation. Posterior communicating arteries are not visualized consistent with normal variant. Right vertebral is normal caliber. There is mild multifocal plaquing of the left vertebral. Normal basilar artery with a normal basilar bifurcation. The visualized bilateral superior cerebellar (SCA) arteries are normal. Normal bilateral P1, P2 and visualized P3 segments of the posterior cerebral arteries. There is no demonstrated aneurysm of the [place] of [place]. There is no demonstrated abnormality of the visualized brain. AORTIC ARCH: Normal visualized aortic arch. Normal origins of the brachiocephalic, left common carotid, and left subclavian arteries. RIGHT CAROTID ARTERIES: There is multifocal soft and calcific plaquing of the common carotid. Moderate soft and calcific plaque of the carotid bulb.. More severe soft and calcific plaque at the origin of the internal carotid but no evidence for hemodynamically significant stenosis of the origin of the right internal carotid (ICA) artery.. There is focal calcific plaquing within the proximal cervical portion of the right internal carotid artery. Normal origin of the right external carotid artery (ECA). LEFT CAROTID ARTERIES: Multifocal soft plaque in the left common carotid artery (CCA). Moderate soft plaque in the left common carotid bulb. Mild soft and calcific plaque in the origin of the left internal carotid (ICA) artery without a hemodynamically significant stenosis. Normal visualized cervical portion of the left internal carotid artery. Normal origin of the left external carotid artery (ECA). VERTEBRAL ARTERIES: The right vertebral is normal caliber. There is occlusion of the left vertebral origin but reconstitution distally to a smaller caliber vessel. CT/CTA Head AND Neck W/ Contrast IMPRESSION: Moderate to severe atherosclerotic changes. Occlusion of the left vertebral at its origin with reconstitution distally. . Electronically Signed: Jerry Rodriguez MD at 18:29 EDT , Service support ,
--- NOTE | 2019-05-18 13:17 | MRI_ITS ---
STUDY: MRI CERVICAL SPINE WITHOUT CONTRAST REASON FOR EXAM: Male, 68 years old. Frequent falls and unsteady gait TECHNIQUE: Standardized fat and water weighted pulse sequences were obtained in the sagittal and axial planes. COMPARISON: None FINDINGS: Normal foramen magnum and brainstem-cervical cord junction. Normal craniovertebral junction. Normal anterior atlantoaxial articulation. Normal odontoid process. Normal cervical lordosis. Normal vertebral bodies and posterior osseous elements. C2-3: Normal endplates. Normal disc height, signal and morphology. Normal central canal and intervertebral neural foramina. C3-4: Normal endplates. Normal disc height, signal and morphology. Normal central canal. Severe right neuroforaminal stenosis and moderate narrowing on the left secondary to bony hypertrophy C4-5: Normal endplates. Normal disc height, signal and morphology. Normal central canal. Moderate right neuroforaminal encroachment secondary to bony hypertrophy C5-6: Narrowed disc space and endplate spurring. No focal disc protrusion. Normal central canal. Moderate left neuroforaminal stenosis and severe narrowing on the right secondary to bony hypertrophy. C6-7: Normal endplates. Normal disc height, signal and minor bulging disc osteophyte complex.. Normal central canal. Mild left neuroforaminal stenosis and moderate narrowing on the right secondary to bony hypertrophy C7-T1: Grade 1 spondylolisthesis. Normal endplates. Normal disc height, signal and tiny central disc osteophyte complex protrusion. Mild narrowing of the central canal. Normal intervertebral neural foramina. Normal cervical cord. Normal visualized soft tissue structures. MRI/Spine Cervical (Routine) IMPRESSION: No evidence for acute fracture or other significant bony pathology. Spondylosis and multilevel spinal stenosis secondary to bony hypertrophy. Findings as above Electronically Signed: Jerry Rodriguez MD at 17:04 EDT , Service support ,
--- NOTE | 2019-05-18 13:17 | MRI_ITS ---
STUDY: MRI LUMBAR SPINE WITHOUT CONTRAST REASON FOR EXAM: Male, 68 years old. Frequent falls with leg weakness TECHNIQUE: Standardized fat and water weighted pulse sequences were obtained in the sagittal and axial planes. COMPARISON: Mar 19 2018 FINDINGS: T12-L1: Normal endplates. Normal disc height, desiccation and normal morphology. Normal bilateral facet joints. Normal central canal and bilateral lateral recesses. Normal bilateral intervertebral neural foramina. Normal lumbar lordosis. There is no substantial scoliosis. Normal conus medullaris that terminates at L1-2 L1-2: Normal endplates. Normal disc height, desiccation and normal morphology. Normal bilateral facet joints. Normal central canal and bilateral lateral recesses. Normal bilateral intervertebral neural foramina. L2-3: Normal endplates. Normal disc height, desiccation and minimal bulging of the annulus with tiny left foraminal disc protrusion.. Facet arthropathy.. Normal central canal and bilateral lateral recesses. Minor left neural foraminal encroachment. L3-4: Schmorl's node of superior endplate of L4. Normal disc height, desiccation and mild annular bulge.. Facet arthropathy and thickening of ligamenta flava greater on the right.. Normal central canal. Mild right lateral recess and bilateral neuroforaminal stenosis. L4-5: Normal endplates. Normal disc height, desiccation and mild annular bulge.. Bilateral facet arthropathy. Normal central canal and bilateral lateral recesses. Mild to moderate bilateral neuroforaminal stenosis L5-S1: Normal endplates. Normal disc height, desiccation and minor bulging disc osteophyte complex.. Bilateral facet arthropathy with thickening of ligamenta flava.. Mild narrowing of the central canal. Mild bilateral recess and moderate neural foraminal stenosis. Normal visualized sacral ala. Normal visualized paraspinous soft tissue structures. Slight interval progression of degenerative changes since previous exam MRI/Spine Lumbar (Routine) IMPRESSION: No evidence for acute fracture or subluxation. Multilevel spinal stenosis secondary to disc disease and bony hypertrophy. Findings as above Electronically Signed: Jerry Rodriguez MD at 17:12 EDT , Service support ,
--- NOTE | 2019-05-18 13:22 | PCM.CONS.GEN ---
Problem List (1) Confusion Status: Acute (2) Frequent falls Status: Acute (3) Balance problem Status: Acute Reason for Consult Date of Consultation: 05/18/19 Reason for Consultation: confusion, falls, balance issues History of Present Illness: The patient is a 68 year old M with PMH HTN, HLD, PAD status post stent, history of orthostatic hypotension, history of bladder cancer status post surgery admitted with falls, balance issues, confusion headache and generalized weakness. On admission patient was found to have DAWN with creatinine 2.6. Per documentation he had coffee-ground emesis following admission, had EGD which is reported to show small hiatal hernia with single gastric polyp and normal examined duodenum. Per his antiplatelets (per he is on Plavix) has been on hold for 5 days as he was supposed to get hernia surgery this week. Per patient he had about 5 falls in the last month or so, has generalized weakness, balance issues, complains of neck pain with no radicular symptoms, has chronic low back pain and follows up with pain management for back injections per . May have intermittent burning pain in the feet per patient. On admission patient complained of generalized headache but at present he denies any headache or confusion. At present patient denies any headache dizziness, focal motor weakness, sensory loss, speech disturbances or visual disturbances, denies any vision loss, jaw claudication or temporal tenderness. Per patient he does drive, does not use any cane or walker to ambulate. MRI brain done on admission did not show any acute stroke, MRA head/neck showed left ICA stenosis (degree of stenosis not ascertained by radiology) and left vertebral artery occlusion [] Past Medical History Past Medical History (Chronic Problems): Chronic Problems (Last Reviewed 05/17/19 @ 09:05 by Amy Jimenez PA-C) COPD (chronic obstructive pulmonary disease) (Chronic) Near syncope (Chronic) Orthostatic hypotension (Chronic) HTN (hypertension) (Chronic) HLD (hyperlipidemia) (Chronic) Basal cell carcinoma (Chronic) PAD (peripheral artery disease) (Chronic) Kidney calculi (Chronic) TIA (transient ischemic attack) (Chronic) Medical History: Medical History (Last Reviewed 05/17/19 @ 09:05 by Amy Jimenez PA-C) Near syncope (Chronic) R55 Orthostatic hypotension (Chronic) I95.1 HTN (hypertension) (Chronic) I10 HLD (hyperlipidemia) (Chronic) E78.5 PAD (peripheral artery disease) (Chronic) I73.9 Allergies morphine Allergy (Verified 05/15/19 21:44) Other Home Medications: Ambulatory Orders Medication Instructions Recorded Atorvastatin Calcium [Lipitor] 10 mg PO QHS 10/14/18 Gabapentin [Neurontin] 400 mg PO TIDCM 10/14/18 Omeprazole [Prilosec] 20 mg PO BID 10/14/18 Amitriptyline HCl [Elavil] 100 mg PO QHS 01/30/19 Umeclidinium Brm/Vilanterol Tr 1 ea IH DAILY 05/16/19 [Anoro Ellipta 62.5-25 Mcg INH] Surgical History: - - Hand surgery for trigger finger. Surgery on her wrist at x2. 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 Len was placed in left femur. Carotid endarterectomy. Bladder surgery for cancer. Lives: Spouse/ Significant Other Smoking Status: Current every day smoker - 1PPW Tobacco Use: Cigars, - - stopped smoking a few weeks ago per patient Alcohol: None Drugs: None - *Family History Maternal Family History: Family History (Last Reviewed 05/17/19 @ 09:06 by Amy Jimenez PA-C) Father Lung cancer Brother Throat cancer Brother Stomach cancer Mother Heart problem History Items: Heart Disease Paternal Family History: Family History (Last Reviewed 05/17/19 @ 09:06 by Amy Jimenez PA-C) Father Lung cancer Brother Throat cancer Brother Stomach cancer Mother Heart problem History Items: Cancer - lung Sibling Family History: Family History (Last Reviewed 05/17/19 @ 09:06 by Amy Jimenez PA-C) Father Lung cancer Brother Throat cancer Brother Stomach cancer Mother Heart problem History Items: Cancer - throat and stomach Review of Systems Constitutional: Reports: - - Complete ROS negative except as documented in HPI Patient Problems: Active and Suspected Problems (Last Reviewed 05/17/19 @ 09:05 by Amy Jimenez PA-C) Acute kidney injury (Acute) Frequent falls (Acute) Coffee ground emesis (Acute) Confusion (Acute) Balance problem (Acute) - Physical Exam General: Alert HEENT: Normocephalic Neck: Supple Lungs: Normal air movement Cardiovascular: Normal S1, Normal S2 Abdomen: Bowel Sounds Present Extremities: No cyanosis Neurological: - - Conscious, alert, AOA x3, CN II through XII grossly intact, power 5 x 5 both upper and lower extremities, no sensory loss, no cerebellar signs, Romberg's ? positive, gait deferred, reflexes + B/L B/S/T/K/A Psych/Mental Status: Normal Affect Vital Signs Temp Pulse Resp BP Pulse Ox 98.1 F 81 18 161/72 H 96 05/18/19 08:08 05/18/19 10:00 05/18/19 13:12 05/18/19 08:08 05/18/19 08:08 Oxygen Flow Rate (L/min) 2 Oxygen Delivery Method Room Air Weight: 81.4 kg Body Mass Index (BMI) 25.0 Finger Stick Blood Glucose 134 Orthostatic Vital Signs Start: 05/16/19 11:00 Freq: q24h Status: Active Protocol: Activity Type Activity Date Activity User E-Sign Co-Sign Detail Recorded Client Recorded Date Recorded By Document 05/17/19 21:05 BLB [id number] 05/17/19 22:08 BLB 05/17/19 21:05 Orthostatic Vitals Standing -Blood Pressure (90/60-120/80) 132/77 H -Extremity Use Right Arm -Pulse Rate (60-100) 86 Sitting -Blood Pressure (90/60-120/80) 163/93 H -Extremity Use Right Arm -Pulse Rate (60-100) 84 Lying -Blood Pressure (90/60-120/80) 156/98 H -Extremity Use Right Arm -Pulse Rate (60-100) 79 Intake and Output for Last 24 Hours 05/16/19 05/17/19 05/18/19 23:59 23:59 23:59 Intake Total 2794 / 2794 3632 / 3632 2204 / 2204 Output Total 1600 / 1600 975 / 975 500 / 500 Balance 1194 / 1194 2657 / 2657 1704 / 1704 Laboratory Tests Past 24 Hrs 05/17/19 05/17/19 05/18/19 05:02 19:15 01:15 WBC RBC Hgb 14.9 14.4 Hct 45.0 43.0 MCV MCH MCHC RDW RDW Differential Plt Count MPV Sodium Potassium Chloride Carbon Dioxide Anion Gap BUN Creatinine Estim Creat Clear Calc Est GFR (MDRD) Af Amer Est GFR (MDRD) Non-Af BUN/Creatinine Ratio Glucose Calcium Phosphorus Albumin Triglycerides Cholesterol LDL Cholesterol VLDL Cholesterol HDL Cholesterol TSH 1.07 Free T4 1.36 05/18/19 05/18/19 05:35 05:35 WBC 6.0 RBC 4.50 L Hgb 14.1 Hct 42.8 MCV 95.1 H MCH 31.3 MCHC 32.9 RDW 13.7 RDW Differential 46.2 H Plt Count 284 MPV 9.2 Sodium 143 Potassium 3.8 Chloride 114 H Carbon Dioxide 26.0 Anion Gap Cancelled BUN 10 Creatinine 1.07 Estim Creat Clear Calc 69.40 Est GFR (MDRD) Af Amer 88 Est GFR (MDRD) Non-Af 73 BUN/Creatinine Ratio 9.3 L Glucose 83 Calcium 8.2 L Phosphorus 2.2 L Albumin 2.8 L Triglycerides 118 Cholesterol 151 LDL Cholesterol 85 VLDL Cholesterol 24 HDL Cholesterol 42 TSH Free T4 Assessment/Plan All Active Problems (Last Reviewed 05/17/19 @ 09:05 by Amy Jimenez PA-C) Acute kidney injury (Acute) Frequent falls (Acute) Coffee ground emesis (Acute) Confusion (Acute) Balance problem (Acute) Bladder cancer (Acute) Syncope (Acute) Hypotension (Acute) The patient is a 68 year old M with PMH HTN, HLD, PAD status post stent, history of orthostatic hypotension, history of bladder cancer status post surgery admitted with falls, balance issues, confusion headache and generalized weakness. On admission patient was found to have DAWN with creatinine 2.6. Per documentation he had coffee-ground emesis following admission, had EGD which is reported to show small hiatal hernia with single gastric polyp and normal examined duodenum. Per his antiplatelets (per he is on Plavix) has been on hold for 5 days as he was supposed to get hernia surgery this week. Per patient he had about 5 falls in the last month or so, has generalized weakness, balance issues, complains of neck pain with no radicular symptoms, has chronic low back pain and follows up with pain management for back injections per . May have intermittent burning pain in the feet per patient. On admission patient complained of generalized headache but at present he denies any headache or confusion. At present patient denies any headache dizziness, focal motor weakness, sensory loss, speech disturbances or visual disturbances, denies any vision loss, jaw claudication or temporal tenderness. Per patient he does drive, does not use any cane or walker to ambulate. MRI brain done on admission did not show any acute stroke, MRA head/neck showed left ICA stenosis (degree of stenosis not ascertained by radiology) and left vertebral artery occlusion Impression Falls, balance issues Carotid stenosis Metabolic encephalopathy Plan ?MRI brain no acute stroke, MRA head/neck shows left ICA stenosis and left foot occlusion ?CTA head/neck if no contraindication to ascertain left carotid stenosis ?MRI C-spine without contrast MRI L-spine without contrast ?EEG-mild generalized slowing. No epileptiform discharges or seizures ?ESR ?EMG/NCS both LE as outpatient ?On statin therapy. Antiplatelets on hold as patient was supposed to have hernia surgery. Restart antiplatelet therapy if no contraindications. ?PT/OT ?Fall precautions ?Further medical management per hospitalist team ?Follow-up with neurology as outpatient in 6 weeks ?Please call with questions if any ?Thank you for allowing us to participate in patient's care and management Code Visit Inpatient E&M: [id number] Init Hosp L3
--- NOTE | 2019-05-18 13:54 | CASEMGMT ---
RN CM Assessment Introduced role of RN CM to patient and patient Clarice at bedside.? Patient is alert, oriented and able?to participate in RN CM Assessment. Information obtained from both patient and . ?Care providers, pharmacy, and demographics verified. Presentation: Confusion, CHOW[place]URY, Frequent Falls, Generalized Weakness Admit Dx: Recurrent Falls, DAWN Re-Admit: No Barriers/Issues: none PCP: Lizabeth Ruiz Specialists: Nephro- Dr Gomez, Pain Man- Dr Johnson, Vasc- Dr Olson, Neuro- Dr Dupree Preferred [facility]acy: [facility] Insurance: [facility] A&B, [employer] [facility] SUPP Rx Benefit:?Yes LNOK: Clarice Bhatia LW/HPOA: No, Would like information Living Arrangements:?Lives with in a SS heber, 5 steps to enter ADL?s: Independent with ambulation and ADLs Transportation: Patient drives, to transport on [place] DME: CPAP- [employer], has 2 built in shower chairs HHC: None SNF: Past, cannot recall which one. Goal: Home, does not think will have any needs and denies Outpt PT or HHC if recommended, states has been walking here fine. Denies any questions/concerns or issues. Aware CM remains available for any emerging needs. DC PLAN: Home with no anticipated needs identified at this time. HECTOR Woodson
[2019-05-18 13:57] LABS: Erythrocyte Sedimentation Rate 8 mm/hr (0-20)
--- NOTE | 2019-05-18 16:49 | PCM.DC ---
- Discharge Diagnoses Current Active Problems: Current Active and Chronic Problems (Last Reviewed 05/17/19 @ 09:05 by Amy Jimenez PA-C) (1) Current falls, debility, Unclear specific etiology but likely related to #2 (2) Suspected underlying cognitive impairment, Unclear type (3) Acute kidney injury suspected secondary to poor oral intake and medication (Bactrim w/ recent cellulitis treatment) (4) ? Coffee ground emesis, Hx Prior w/ Hx unclear ulcer, GI Bleed Ruled Out (EGD unremarkable, recent normal c-scope) (5) Recent Distal Nasal Tip Cellulitis/abrasion, Resolving (6) Acute metabolic encephalopathy, Multifactorial, Secondary to #1,#2,#3,#4 (6) PAD (7) Chronic COPD (8) Tobacco Abuse (9) Hyperlipidemia (10) GERD w/ Hiatal Hernia (Previous 05/20/19 surgery intention, held, restarted antiplt therapies) You will use the following diet at home:: Cardiac Your food should be the consistency of: Regular Your liquids should be the consistency of: Regular/Thin Discharge Activity: May Not Drive, - - No aggressive activity until re-assessment per Neurology. No driving until re-assessment and clearance per Neurology. May resume sexual activity in: No Restrictions Weight Bearing Status: Weight bearing as tolerated Call your doctor if you observe: Fever of 101 or Higher, Inability to urinate, Inability to have a bowel movement, Shortness of breath, Dizziness, Fainting spells, Chest pain, Uncontrolled pain Instructions: Preventing Falls: Are You At Risk of Falling?, Preventing Falls: Making Changes in Your Living Space, Preventing Falls: Moving Safely Outside, Preventing Falls in the Home Additional Instructions: Please have repeat basic metabolic panel with your primary care physician at follow-up to assure continued appropriate renal function given recent acute kidney injury. Allergies/Adverse Reactions: Allergies morphine Allergy (Verified 05/15/19 21:44) Other Medications to take at Discharge Atorvastatin Calcium [Lipitor] 10 mg PO QHS 10/14/18 Gabapentin [Neurontin] 400 mg PO TIDCM 10/14/18 Amitriptyline HCl [Elavil] 100 mg PO QHS 01/30/19 Umeclidinium Brm/Vilanterol Tr [Anoro Ellipta 62.5-25 Mcg INH] 1 ea IH DAILY 05/16/19 Bacitracin/Polymyxin B Ointmen [Polysporin Ointment] 1 applic TOPICAL TID 5 Days #1 tube 05/18/19 Cilostazol 100 mg PO BID 05/18/19 Clopidogrel Bisulfate [Plavix] 75 mg PO DAILY 05/18/19 Nicotine [Nicoderm] 14 mg TRANSDERM. DAILY #14 patch 05/18/19 Pantoprazole Sodium [Protonix] 40 mg PO BID #60 tab 05/18/19 The following prescriptions were given: Nicotine [Nicoderm] 14 mg TRANSDERM. DAILY #14 patch Transmission Status: Pending to [facility] Bacitracin/Polymyxin B Ointmen [Polysporin Ointment] 1 applic TOPICAL TID 5 Days #1 tube [facility] Pantoprazole Sodium [Protonix] 40 mg PO BID #60 tab Transmission Status: [facility] Primary Care Physician: Lizabeth Ruiz MD [Primary Care Provider] - Please follow up with your Primary Care Physician in: Follow-up within 3-5 days to review admission. Test Results: Test results from this visit will be discussed in further detail at your follow-up appointment, if applicable. Please Follow Up With: Denise Dupree MD When: Follow-up within 4-6 weeks, may see VISITING PROFESSOR. Please Follow Up With: Iban Olson MD When: Follow-up regarding carotid disease within 1-2 weeks. Proposed Discharge Date: 05/18/19
[2019-05-18] MEDS: Clopidogrel Bisulfate 75 MG Tablet PO (16:52)
[2019-05-18] MEDS: Cilostazol 50 MG Tablet 100 MG PO (16:53)
--- NOTE | 2019-05-18 17:03 | DS.PCM_ITS ---
Discharge Date and Diagnosis Date of Admission: 05/16/19 Date of Discharge: 05/18/19 - Primary Discharge Diagnosis Active and Suspected Problems (Last Reviewed 05/17/19 @ 09:05 by Amy Jimenez PA-C) (1) Current falls, debility, Unclear specific etiology but likely related to #2 (2) Suspected underlying cognitive impairment, Unclear type (3) Acute kidney injury suspected secondary to poor oral intake and medication (Bactrim w/ recent cellulitis treatment) (4) ? Coffee ground emesis, Hx Prior w/ Hx unclear ulcer, GI Bleed Ruled Out (EGD unremarkable, recent normal c-scope) (5) Recent Distal Nasal Tip Cellulitis/abrasion, Resolving (6) Acute metabolic encephalopathy, Multifactorial, Secondary to #1,#2,#3,#4 (6) Moderate to Severe Atherosclerosis on CTA H/N w/ specific Occlusion L Vertebral at Origin w/ Reconstitution distally (7) Multilevel spinal stenosis secondary to disc disease and bone hypertrophy (cervical and lumbar) (8) Tobacco Abuse (9) Hyperlipidemia (10) GERD w/ Hiatal Hernia (Previous 05/20/19 surgery intention, held, restarted antiplt therapies) (11) PAD (12) Chronic COPD - Secondary Discharge Diagnosis Chronic Problems (Last Reviewed 05/17/19 @ 09:05 by Amy Jimenez PA-C) COPD (chronic obstructive pulmonary disease) (Chronic) Near syncope (Chronic) Orthostatic hypotension (Chronic) HTN (hypertension) (Chronic) HLD (hyperlipidemia) (Chronic) Basal cell carcinoma (Chronic) PAD (peripheral artery disease) (Chronic) Kidney calculi (Chronic) TIA (transient ischemic attack) (Chronic) Hospital Course and Treatment Imaging Results: 05/18/19 13:17 CTA Head AND Neck W/ Contrast [CT] Stat Spine Cervical (Routine) [MRI] Stat Spine Lumbar (Routine) [MRI] Stat The patient is a 68 y/o M w/ PMHx: Chronic COPD, GERD w/ Hx GI Bleed w/ ulcers unclear type, PAD, HTN, HLD, Orthostatic hypotension w/ history of syncope, Hx TIA who presents to the [facility] ED on 05/16/19 with history of weakness, debility and recurrent falls. EKG in ED w/ sinus rhythm without evidence of acute ischemia, CXR w/ no acute cardiopulmonary findings, CT brain without acut findings, initial trop normal. Admitted to [place], maintained on fall precautions, orthostatic now VS + with IVFs administered, ECHO w/ normal LV size, moderate concentric LVH, EF 55%, LV systolic function normal, stage I diastolic dysfunction, EEG with generalized slowing with no obvious epileptic findings, MRI brain with no acute evidence cute intracranial finding, MRA head unremarkable, MRA neck with apparent occlusion of the left vertebral artery, possible stenosis of the left carotid bulb of the left ICA with recommendation for follow-up CTA. 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 Neurology consultation with requested CTA head and neck w/ noted moderate to severe atherosclerotic changes, occlusion of the left vertebral at its origin with reconstitution distally, cervical MRI as well as lumbar MRI w/ no evidence for acute fracture or subluxation, multilevel spinal stenosis secondary to disc disease and bony hypertrophy with spondylosis present. Patient continued on his statin and antiplt therapy which had initially been held secondary to patient noted planned hiatal hernia repair on week of presentation. Upon admission patient with noted DAWN w/ admission BUN/Cr 30/2.60, prior baseline creatinine noted to be 1.5 w/ renal US w/ BL renal cysts, including a septated cyst in the left kidney, BL nonobstructing stones measuring up to 1.3 cm on the right w/ no hydronephrosis. Hydrated, held nephrotoxic medications and repeat chemistry with resolution w/ 05/18/19 BUN/Cr 10/1.07. During admission, patient with episode of ? coffee ground emesis w/ ? GI bleed, Hx Prior w/ Hx unclear ulcer, obtained serial HH which remained stable, PPI continued, 05/17/19 EGD w/ no obvious source of bleeding, but noted dark material and debris. Small stomach polyp noted, removed. Initially clears which was advanced to regular diet, tolerated. During admission patient noted he had been on bactrim recently secondary to PCP noted distal nasal tip abrasion with cellulitis. Bactrim given DAWN discontinued and given appearance topicals applied with good outcome. Patient very adamant on 05/18/19 about discharge to home, thus following imaging studies per discussion with Neurology patient discharged to home with follow-up with PCP, Neurology, his Vascular Surgeon as well as recommendation evaluation per Neurosurgery given chronic findings in cervical/lumbar spine with stenosis and spondylosis. Operations: None Summary of Care Provided: The patient is a 68 year old M [] - Physical Exam Vital Signs Temp Pulse Resp BP Pulse Ox 97.9 F 89 18 159/85 H 92 05/18/19 16:46 05/18/19 16:46 05/18/19 16:46 05/18/19 16:46 05/18/19 16:46 Oxygen Flow Rate (L/min) 2 Oxygen Delivery Method Room Air Weight: 179 lb 7.3 oz Body Mass Index (BMI) 25.0 Finger Stick Blood Glucose 134 Orthostatic Vital Signs Start: 05/16/19 11:00 Freq: q24h Status: Active Protocol: Activity Type Activity Date Activity User E-Sign Co-Sign Detail Recorded Client Recorded Date Recorded By Document 05/17/19 21:05 BLB [id number] 05/17/19 22:08 BLB 05/17/19 21:05 Orthostatic Vitals Standing -Blood Pressure (90/60-120/80) 132/77 H -Extremity Use Right Arm -Pulse Rate (60-100) 86 Sitting -Blood Pressure (90/60-120/80) 163/93 H -Extremity Use Right Arm -Pulse Rate (60-100) 84 Lying -Blood Pressure (90/60-120/80) 156/98 H -Extremity Use Right Arm -Pulse Rate (60-100) 79 Intake and Output for Last 24 Hours 05/16/19 05/17/19 05/18/19 23:59 23:59 23:59 Intake Total 2794 / 2794 3632 / 3632 2204 / 2204 Output Total 1600 / 1600 975 / 975 500 / 500 Balance 1194 / 1194 2657 / 2657 1704 / 1704 Laboratory Tests Past 24 Hrs 05/17/19 05/17/19 05/18/19 05:02 19:15 01:15 WBC RBC Hgb 14.9 14.4 Hct 45.0 43.0 MCV MCH MCHC RDW RDW Differential Plt Count MPV ESR Sodium Potassium Chloride Carbon Dioxide Anion Gap BUN Creatinine Estim Creat Clear Calc Est GFR (MDRD) Af Amer Est GFR (MDRD) Non-Af BUN/Creatinine Ratio Glucose Calcium Phosphorus Albumin Triglycerides Cholesterol LDL Cholesterol VLDL Cholesterol HDL Cholesterol TSH 1.07 Free T4 1.36 05/18/19 05/18/19 05/18/19 05:35 05:35 08:35 WBC 6.0 RBC 4.50 L Hgb 14.1 Hct 42.8 MCV 95.1 H MCH 31.3 MCHC 32.9 RDW 13.7 RDW Differential 46.2 H Plt Count 284 MPV 9.2 ESR 8 Sodium 143 Potassium 3.8 Chloride 114 H Carbon Dioxide 26.0 Anion Gap Cancelled BUN 10 Creatinine 1.07 Estim Creat Clear Calc 69.40 Est GFR (MDRD) Af Amer 88 Est GFR (MDRD) Non-Af 73 BUN/Creatinine Ratio 9.3 L Glucose 83 Calcium 8.2 L Phosphorus 2.2 L Albumin 2.8 L Triglycerides 118 Cholesterol 151 LDL Cholesterol 85 VLDL Cholesterol 24 HDL Cholesterol 42 TSH Free T4 Discharge Activity: May Not Drive, - - No aggressive activity until re- assessment per Neurology. No driving until re-assessment and clearance per Neurology. May resume sexual activity in: No Restrictions Weight Bearing Status: Weight bearing as tolerated Call your doctor if you observe: Fever of 101 or Higher, Inability to urinate, Inability to have a bowel movement, Shortness of breath, Dizziness, Fainting spells, Chest pain, Uncontrolled pain Home Medications: Medications to take at Discharge Atorvastatin Calcium [Lipitor] 10 mg PO QHS 10/14/18 Gabapentin [Neurontin] 400 mg PO TIDCM 10/14/18 Amitriptyline HCl [Elavil] 100 mg PO QHS 01/30/19 Umeclidinium Brm/Vilanterol Tr [Anoro Ellipta 62.5-25 Mcg INH] 1 ea IH DAILY 05/16/19 Bacitracin/Polymyxin B Ointmen [Polysporin Ointment] 1 applic TOPICAL TID 5 Days #1 tube 05/18/19 Cilostazol 100 mg PO BID 05/18/19 Clopidogrel Bisulfate [Plavix] 75 mg PO DAILY 05/18/19 Nicotine [Nicoderm] 14 mg TRANSDERM. DAILY #14 patch 05/18/19 Pantoprazole Sodium [Protonix] 40 mg PO BID #60 tab 05/18/19 Following Prescrptions Were Given to Patient: Nicotine [Nicoderm] 14 mg TRANSDERM. DAILY #14 patch Transmission Status: Received by [id number] Bacitracin/Polymyxin B Ointmen [Polysporin Ointment] 1 applic TOPICAL TID 5 Days #1 tube Transmission Status: Received by [id number] Pantoprazole Sodium [Protonix] 40 mg PO BID #60 tab Transmission Status: Received by [id number] Primary Care Physician: Lizabeth Ruiz MD [Primary Care Provider] - Please follow up with your Primary Care Physician in: Follow-up within 3-5 days to review admission. Please Follow Up With: Denise Dupree MD When: Follow-up within 4-6 weeks, may see COMPUTER TERMINAL OPERATOR. Please Follow Up With: Iban Olson MD When: Follow-up regarding carotid disease within 1-2 weeks. Patient Instructions: Preventing Falls in the Home, Preventing Falls: Are You At Risk of Falling?, Preventing Falls: Making Changes in Your Living Space, Preventing Falls: Moving Safely Outside Disposition: Home with Home Health Minutes spent on discharge:: 35 Patient Condition:: Fair Medical Necessity - Tobacco Use Smoking Status: Current every day smoker - 1PPW Tobacco Use: Cigars, - - stopped smoking a few weeks ago per patient Meaningful Use Info Meaningful Use Diagnoses (Choose all that apply): None applicable Code Visit Inpatient E&M: 47567 Disch Hosp
--- NOTE | 2019-05-19 15:54 | CASEMGMT ---
DAVEY AMARAL DC PHONE CALL DC DATE: 05/18/19 DC Disposition: Home Diagnosis on Discharge: falls, debility LACE/STRATA: 09/05 Intro role of CM to patient. He states his is picking up prescriptions. No questions re: instructions or f/u, states his does all that. Home Health was listed by physician on dc summary, however is not ordered. Per rabies inspector pt denies need for HHC and declined. Ferny PELLETIERN RN ACM
== END 2019-05-18 18:55 | disposition home or self-care (01) | DRG 682 ==
LOC: ED 05-16 02:59 → MS3 05-16 03:25
PROVIDERS: Internal Medicine Nephrology; Psychiatry & Neurology Neurology; Surgery; Admitting Provider Internal Medicine; Emergency Provider Emergency Medicine; Family Provider Family Medicine; PCP Family Medicine; Visit Provider Family Medicine
PROC: 0DJ08ZZ Inspection of Upper Intestinal Tract, Via Natural or Artificial Opening Endoscopic (ICD-10-PCS; CPT 43235; principal; 2019-05-17 10:25)
DX: N17.9 Acute kidney failure, unspecified (principal); G93.41 Metabolic encephalopathy; R53.81 Other malaise; R29.6 Repeated falls; Z95.820 Peripheral vascular angioplasty status with implants and grafts; I73.9 Peripheral vascular disease, unspecified; K31.7 Polyp of stomach and duodenum; K44.9 Diaphragmatic hernia without obstruction or gangrene; Z85.51 Personal history of malignant neoplasm of bladder; N28.1 Cyst of kidney, acquired; N20.0 Calculus of kidney; E78.5 Hyperlipidemia, unspecified; K21.9 Gastro-esophageal reflux disease without esophagitis; J44.9 Chronic obstructive pulmonary disease, unspecified; Z72.0 Tobacco use; R11.10 Vomiting, unspecified; M48.02 Spinal stenosis, cervical region; M48.061 Spinal stenosis, lumbar region without neurogenic claudication; I65.02 Occlusion and stenosis of left vertebral artery; I95.1 Orthostatic hypotension; I10 Essential (primary) hypertension
CPT/HCPCS: 36415; 70450; 70496; 70498; 70544; 70547; 70551; 71045; 72141; 72148; 76770; 80048; 80053; 80061; 80069; 81001; 82962; 83735; 84439; 84443; 84484; 85014; 85018; 85025; 85027; 85610; 85652; 85730; 86850; 86900; 88305; 88342; 93005; 93306; 94640; 95819; 97162; 97165; 97530; 99285; J7030; J7040; J7050; Q9967; A4216; J2405

== ENCOUNTER → 2019-06-23 17:38 | Outpatient (CLI) | payer MEDICARE, OTHER, SELFPAY ==
[2019-05-17 08:30] VITALS: BMI 25.0
--- NOTE | 2019-06-23 17:40 | CT_ITS ---
STUDY: CTA NECK WITH CONTRAST REASON FOR EXAM: Male, 68 years old. Carotid stenosis RADIATION DOSAGE (If Supplied By Facility): CTDIvol = ( 18.19 ) mGy, DLP = ( 597.87 ) mGycm TECHNIQUE: CT angiography with multi-detector data acquisition was performed from the aortic arch to the skull base following intravenous administration of 100 IV Isovue 370. MIP images were reconstructed from the axial data set. Post-processing of the angiographic images was performed, with multiplanar reformation and 3D reconstruction. Individualized dose optimization techniques were used for this CT. COMPARISON: None. FINDINGS: AORTIC ARCH: Calcified aortic arch. Atherosclerotic calcifications at the origins of the brachiocephalic, left common carotid, and left subclavian arteries. Moderate stenosis of the right subclavian artery. Mild stenosis at the origin of the left subclavian artery. Mild stenosis at the origin of the left common carotid artery with intraluminal thrombus. RIGHT CAROTID ARTERIES: Diffuse mild intraluminal thrombus of the right common carotid artery (CCA). Atherosclerotic calcifications and intraluminal thrombus at the right common carotid bulb with mild luminal narrowing. Normal origin of the right internal carotid (ICA) artery without a hemodynamically significant stenosis. Normal visualized cervical portion of the right internal carotid artery. Intraluminal thrombus with moderate narrowing at the origin of the right external carotid artery (ECA). LEFT CAROTID ARTERIES: Diffuse djly-un-gcptcmty arthrosclerotic intraluminal thrombus the left common carotid artery (CCA). Mild intraluminal thrombus at the left common carotid bulb. Normal origin of the left internal carotid (ICA) artery without a hemodynamically significant stenosis. Mild atherosclerotic calcifications of the visualized cervical portion of the left internal carotid artery. Normal origin of the left external carotid artery (ECA). VERTEBRAL ARTERIES: Normal right vertebral artery. Occluded proximal left vertebral artery with reconstitution distally. Emphysematous changes of the lungs. CT/CTA Neck W/WO Contrast IMPRESSION: Atherosclerotic calcifications and intraluminal thrombus of the carotid arteries bilaterally as noted above. Occluded proximal left vertebral artery with distal reconstitution. Aawv-da-xwikvvwi stenosis of the subclavian arteries. Mild stenosis at the origin of the left common carotid artery. Electronically Signed: Moustapha Bergeron DO at 21:31 EDT Tel [phone], Service support ,
== END ==
PROVIDERS: Family Provider Family Medicine; PCP Family Medicine; Referring Provider Surgery Vascular Surgery; Visit Provider Surgery Vascular Surgery
DX: I65.23 Occlusion and stenosis of bilateral carotid arteries (principal)
CPT/HCPCS: 70498; Q9967

== ENCOUNTER 2019-07-30 14:31 | Inpatient (IN) | payer MEDICARE, OTHER, SELFPAY ==
[2019-05-17 08:30] VITALS: BMI 25.0
[2019-07-30] VITALS (14 sets, daily range): BP systolic 83–156; BP diastolic 60–93; PULSE 80–100; RESP 16–19; TEMP 36.4–36.9; O2SAT 92–98; BMI 25.6; BMI 25.4
--- NOTE | 2019-07-30 14:47 | EKG12_ITS ---
Test Reason : HYPOTENSON Blood Pressure : / mmHG Vent. Rate : 086 BPM Atrial Rate : 086 BPM P-R Int : 166 ms QRS Dur : 092 ms QT Int : 418 ms P-R-T Axes : 058 011 029 degrees QTc Int : 500 ms Sinus rhythm with occasional Premature ventricular complexes Possible Inferior infarct , age undetermined Prolonged QT Abnormal ECG Confirmed by GUS FLEMING, MARK ([id number]), assistant production editor CHAUNCEY OSORIO ([id number]) on 08/02/2019 3:18:10 PM Referred By: ANDREY Confirmed By:MARK WEBER MD
--- NOTE | 2019-07-30 14:47 | RAD_ITS ---
STUDY: X-RAY CHEST REASON FOR EXAM: Male, 68 years old. Hypotension TECHNIQUE: 2 AP portable views COMPARISON: 05/15/2019 FINDINGS: EKG leads overlie the chest There are interstitial fibrotic changes of the lungs. There is no demonstrated pleural abnormality. Normal size heart. Normal mediastinum and debra. Normal visualized pulmonary arteries. There is atherosclerotic calcification of the aortic arch with tortuosity. There are diffuse degenerative changes of the visualized thoracic spine. There is degenerative osteoarthritis of the bilateral shoulders. There is no demonstrated abnormality of the visualized soft tissue structures of the upper abdomen. RAD/Chest 1 View (Portable) IMPRESSION: Degenerative changes, as described above. No demonstrated acute cardiopulmonary process. Electronically Signed: Janes Tatum MD at 15:11 EDT , Service support ,
--- NOTE | 2019-07-30 14:49 | ED.DCSUM_ITS ---
History of Present Illness Chief Complaint: Hypotension Informant: Patient, Significant Other Onset: Today Context: Sudden Onset Timing: Continuous Quality: Dizzy Location: Not applicable Current Severity: Mild Maximum Severity: Severe Worsened by: Upright position Relieved by: Nothing Associated Symptoms: Chronic back pain status post epidural injection 2 days ago Narrative: Patient is a 68-year-old male status post hernia repair at [facility] 2 weeks ago who presents with dizziness. Patient is hypotensive. Patient is not normally on oxygen. He denies shortness of breath or chest pain. He denies abdominal pain. He denies nausea or vomiting. He denies fever, chills or night sweats. He denies decreased urine output. states he has stage III renal failure. He denies black or maroon stool. 2 days ago he had an epidural injection for chronic back pain. He denies leg pain, swelling or discoloration. Prior similar symptoms: No Recent Illness/Hospitalization: Yes - Past Medical History (1) Essential (primary) hypertension Status: Chronic (2) HLD (hyperlipidemia) Status: Chronic (3) PAD (peripheral artery disease) Status: Chronic (4) TIA (transient ischemic attack) Status: Chronic Past Medical History - Allergies and Home Meds Allergies/Adverse Reactions: Allergies morphine Allergy (Verified 05/15/19 21:44) Other Primary Care Physician: Lizabeth Ruiz MD [Primary Care Provider] - Prior records reviewed: Yes - Past creatinine was 1.07 with a GFR of greater than 70 Surgical History: - - Hand surgery for trigger finger. Surgery on her wrist at x2. 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 Len was placed in left femur. Carotid endarterectomy. Bladder surgery for cancer. Lives: Spouse/ Significant Other Smoking Status: Former smoker Alcohol: None Drugs: None - Family History Maternal Family History: Family History (Last Reviewed 05/17/19 @ 09:06 by Amy Jimenez PA-C) Father Lung cancer Brother Throat cancer Brother Stomach cancer Mother Heart problem Family History: Reports: Heart Disease Paternal Family History: Family History (Last Reviewed 05/17/19 @ 09:06 by Amy Jimenez PA-C) Father Lung cancer Brother Throat cancer Brother Stomach cancer Mother Heart problem Family History: Reports: Cancer - lung Sibling Family History: Family History (Last Reviewed 05/17/19 @ 09:06 by Amy Jimenez PA-C) Father Lung cancer Brother Throat cancer Brother Stomach cancer Mother Heart problem Family History: Reports: Cancer - throat and stomach Review of Systems General: Denies: Chills, Fever, Malaise, Sweats Eyes: Denies: Visual changes - bilaterally, Blurred Vision - bilaterally ENT: Reports: Bilateral ear pain Cardiovascular: Denies: Chest pain, Palpitations Respiratory: Denies: Dyspnea, Cough, Dyspnea on exertion Gastrointestinal: Denies: Abdominal pain, Nausea, Vomiting, Diarrhea, Melena, Hematochezia Genitourinary: Denies: Dysuria, Hematuria, Frequency Musculoskeletal: Reports: Back pain. Denies: Myalgias, Arthralgias, Neck pain, Swelling, Extremity Pain, -, - Skin: Denies: Rash, Wounds Neurological: Reports: Weakness. Denies: Headache, Parasthesia, Numbness, -, - Hematologic: Denies: Easy bruising, Easy bleeding Allergy: Denies: Uticaria, Swelling of the mouth Physical Exam Vital Signs/Narrative: Vital Signs Temp Pulse Resp BP Pulse Ox 07/30/19 14:32 98.5 F 100 19 H 83/60 L 92 Inital Vital Signs reviewed: Yes General: Well nourished, Well developed, No Acute Distress Head: Normocephalic, Atraumatic Eyes: Perrl, EOMI. Negative for: Pale conjunctiva, Scleral icterus ENT: No rhinorrhea, TM's clear, Dry mucous membranes Neck: Supple, Nontender, No lymphadenopathy, No JVD, - - Trachea is midline there is no stridor. Cardiovascular: Regular rate, Regular rhythm, No murmurs, Normal S1, Normal S2 Respiratory: No distress, CTA bilaterally, Chest nontender Abdomen: Soft, Nontender, Nondistended, Normal bowel sounds, No masses Rectal: Deferred, - - Dermal sensation gluteal area. Back: Nontender, Normal Inspection, - - There is no swelling, erythema lower back. There is no point percussion tenderness.. Negative for: CVA tenderness, Spinal tenderness Extremities: Nontender, No edema, - - There is no asymmetry, swelling, discoloration, leg vein distention, palpable cords or tenderness along the distribution of the deep venous system. Skin: Normal color, No rash, No Trauma. Negative for: Cyanosis, Diaphoresis, Jaundice Neurological: Alert, Oriented x3, Cranial nerves II-XII grossly intact, Normal Strength, Normal Sensation, Normal DTR - Symmetric with no clonus or Babinski sign.. Negative for: Normal Gait Psychological: Normal affect, Normal Mood Diagnostic/Tx/Re-eval - Rhythm Strip Rhythm Strip: Sinus Rhythm Rate: 97 Ectopy: PVC(s) - EKG Initial EKG Interpretation: Sinus Rhythm - Sinus rhythm with a ventricular rate of 86. MN interval is 106 6 ms. QRS durations 92 ms. QT duration 418 ms with a QTC of 500 ms. [place] is normal. There are premature ventricular complexes noted. There is a Q wave in lead III and aVF. The Q wave in aVF is insignificant. There is a prolonged QT interval. There is also artifact - Medical Decision Making History of recent surgery, immobilization with hypoxia, tachycardia and hypotension need to entertain possibility of pulmonary embolus. Also need to entertain possibility of postoperative infection. Clinically patient is dry doubt his hypotension and hypoxia secondary to found dehydration. Need to evaluate for cardiac ischemia as well. EKG and troponin were obtained. Appropriate blood was ordered. 2 L of normal saline was ordered wide open. If chest x-ray does not explain patient's hypoxia will order emergent CTA to evaluate for pulmonary embolus. This patient has a nontender abdomen and port sites do not appear infected imaging the abdomen was not obtained. Examination of the back reveals no erythema, warmth, fluctuance or point tenderness to percussion. Neurologic exam is normal and he has no neurologic symptoms. In my opinion MRI of the back is not warranted to evaluate for possible epidural abscess since he had an epidural injection 2 days ago. Suspect his white count is secondary to stress/hypotension. states he has been ill for the last 2 to 3 days with poor p.o. intake. This may all represent hypovolemic shock. Uncertain why he was hypoxic, however. Most recent blood pressure is 115 systolic. This is after patient received 2 L of normal saline wide open. Patient has made approximate 400 cc of urine. - Critical Care Time Critical care time (excluding procedures): 30-74 minutes, Discussing w/Patient &/or Family/Cinder Dump Crane Operator, Discussing w/Consultants, Arranging Admission or Transfer ED Disposition - Plan for ED Patient: Diagnosis: Hypotension, Lactic acidosis, Acute kidney injury, Hypoxia Referrals: Lizabeth Ruiz MD [Primary Care Provider] -
[2019-07-30] MEDS: 0.9% Normal Saline 1,000 ML 1000 ML IV ×2 (14:56→16:00)
--- NOTE | 2019-07-30 14:58 | CT_ITS ---
STUDY: CTA CHEST REASON FOR EXAM: Male, 68 years old. Hypotension, acute chest pain RADIATION DOSAGE (If Supplied By Facility): CTDIvol = ( 11.28 ) mGy, DLP = ( 454.37 ) mGycm TECHNIQUE: The examination was performed with the intravenous administration of IV Isovue 370 100mL. Post-processing of the angiographic images was performed, with multiplanar reformation and 3D reconstruction. Individualized dose optimization techniques were used for this CT. COMPARISON: None. FINDINGS: Normal enhancement of the main pulmonary artery and right and left pulmonary arteries. Normal enhancement of the bilateral peripheral pulmonary arteries. There is no demonstrated pulmonary embolism. There is atherosclerotic calcification of the aortic arch with tortuosity. There is no demonstrated aortic dissection. Normal heart and pericardium. There are calcifications of the coronary arteries. There are scattered subcentimeter axillary and mediastinal lymph nodes. There is peribronchial thickening. The lungs are well expanded. Chronic interstitial changes in both lung mackey with emphysematous blebs in the upper lobes and dependent atelectasis. Nonspecific pleural thickening noted in both hemithoraces. Normal pleura. Normal chest wall structures. There are degenerative changes of thoracic spine. Limited because to the upper abdomen show a large left renal cyst. CT/CTA Chest W/WO Contrast IMPRESSION: No demonstrated PE, thoracic aortic aneurysm or dissection Hyperexpanded lungs with emphysematous blebs in apices, and chronic interstitial fibrotic changes in both lung mackey with dependent atelectasis and pleural thickening. No organized infiltrate or effusion Calcified coronary vessels Degenerative bony changes Left renal cyst Electronically Signed: Janes Tatum MD at 15:45 EDT , Service support ,
[2019-07-30 15:02] LABS: Hematocrit 45.2 % (40-54); Hemoglobin 14.4 g/dL (13.0-16.5); Mean Corp Hgb Conc 31.9 g/dL (32-36); Mean Corpuscular Hgb 30.7 pg (27.0-32.0); Mean Corpuscular Volume 96.4 fL (80-94); Platelet Count 336 K/mm3 (150-450); RBC Distribution Width CV 14.1 % (11.6-14.6); RBC Distribution Width SD 50.4 fl (35.1-43.9); Red Blood Count 4.69 M/mm3 (4.6-6.2); White Blood Count 15.8 K/mm3 (4.4-11.0)
[2019-07-30 15:15] LABS: Anion Gap 9 (5-15); BUN 30 mg/dL (7-18); BUN/Creat Ratio 11.9 RATIO (10-20); Calcium,Total 8.8 mg/dL (8.5-10.1); Chloride 109 mmol/L (98-107); Creatinine, Serum 2.52 mg/dL (0.70-1.30); EST Glomerular Filtration Rate 27 mL/min (>60); Est Glom Filt Rate - Afr Amer 33 mL/min (>60); Estimated Creatinine Clearance 29.47 ml/min; Glucose 102 mg/dL (74-106); Potassium 4.5 mmol/L (3.5-5.1); Sodium Level 144 mmol/L (136-145)
[2019-07-30 15:21] LABS: International Normalized Ratio 1.1; Prothrombin Time (Protime)PT. 13.6 SECONDS (11.7-14.9)
[2019-07-30 15:22] LABS: Partial Thromboplast Time 28.6 Seconds (24.1-36.2)
[2019-07-30 15:30] LABS: Lactic Acid 2.6 mmol/L (0.4-2.0)
--- NOTE | 2019-07-30 15:31 | ED.RN ---
LAB CALLS WITH CRITICAL RESULT, LACTIC ACID 2.6, DR. BALDERAS MADE AWARE.
[2019-07-30 15:36] LABS: Blood Gas Specimen Type VEN; O2 Delivery Device Nasal Can; Time Given 1529; VBG BASE EXCESS -3 mmol/L (-1.0-3.5); VBG Bicarbonate 22 mmol/L (22-26); VBG Oxygen Content 23 mmol/L (23-33); VBG PO2 54 mmHg (25-40); VBG SO2 88 % (50-70); VBG pCO2 35.5 mmHg (41-51); VBG pH 7.39 (7.32-7.42)
[2019-07-30 16:40] LABS: Bacteria 0 SEEN /hpf (None Seen); Mucous, Urine 0 SEEN /hpf (<or=2+); Red Blood Cells-Urine 0 SEEN /hpf (0-5); Squamous Epithelial Cells - UA 0 SEEN /hpf (0-5); White Blood Cells 0 SEEN /hpf (0-5)
[2019-07-30 16:54] LABS: Color, Urine Yellow (Yellow); Glucose, Dipstick Normal (Normal); Ketone-Dipstick Negative (Negative); Leukocyte Esterase-Dipstick Negative /ul (Negative); Nitrite-Dipstick Negative (Negative); Occult Blood-Urine Negative /ul (Negative); Protein-Dipstick 30 mg/dl (Negative); Specific Gravity, Urine 1.005 (1.002-1.030); Urine Bilirubin Dipstick Negative (Negative); Urine Clarity Clear (Clear); Urine Urobilinogen Normal (Normal); Urine pH 6.5 (5.0 - 8.0)
--- NOTE | 2019-07-30 17:14 | NURSING ---
DR BARILLAS CALLED. SHE IS IN WITH A STROKE. SHE WILL BE OVER SOON
--- NOTE | 2019-07-30 17:39 | NURSING ---
PCU KORAM HYPOTENSION, LACTIC ACIDOSIS, HYPOXIA, DAWN
--- NOTE | 2019-07-30 17:49 | HP.PCM_ITS ---
History of Present Illness Date of Admission: 07/30/19 Chief Complaint: lightheadedness, dizziness The patient is a 68 year old M with a past medical history as listed. He was admitted through the ED on 07/30/2019 with complaint of severe lightheadedness and dizziness. Symptoms started around 1 PM on day of admission. He also checked his blood pressure at home and the systolic was in the 50s though he decided to come into the ED. Patient has had such episodes of severe hypotension before which resolved with IV fluid administration. His states his blood pressure medications were stopped a few months ago after he came with a similar presentation. However while ago he was started on amlodipine 5 mg daily again. Patient is 2 weeks status post laparoscopic repair which was done at [facility] and he also received an epidural injection for back pain by Dr. Johnson a few weeks ago. However he denies any abdominal pain or back pain, fever or chills, diarrhea vomiting. He has been eating and drinking well and his states he drinks a lot of water on account of his previous history of lightheadedness and dizziness as well as hypotension. On arrival in the ED, blood pressure was initially 83/60 which came up to the 140s and then to the 120 systolic after he was hydrated with IV fluids. Labs were significant for creatinine of 2.52 with a baseline from May 2019 of around 1. CBC showed white cell count of 15.8. Lactic acid was elevated at 2.6. CT was negative for any PE and chest x-ray showed degenerative changes and no acute cardia pulmonary process. He has been admitted to be managed for acute symptomatic hypotension and DAWN. [] Past Medical History Past Medical History (Chronic Problems): Chronic Problems (Last Updated 07/14/19 @ 19:16 by Sandi Fitzgerald) Essential (primary) hypertension (Chronic) Near syncope (Chronic) Orthostatic hypotension (Chronic) HLD (hyperlipidemia) (Chronic) PAD (peripheral artery disease) (Chronic) TIA (transient ischemic attack) (Chronic) Medical History: Medical History (Last Updated 07/14/19 @ 19:16 by Sandi Fitzgerald) Near syncope (Chronic) R55 Orthostatic hypotension (Chronic) I95.1 HLD (hyperlipidemia) (Chronic) E78.5 PAD (peripheral artery disease) (Chronic) I73.9 TIA (transient ischemic attack) (Chronic) Balance problem R26.89 Basal cell carcinoma C44.91 Bladder cancer C67.9 COPD (chronic obstructive pulmonary disease) J44.9 Frequent falls R29.6 Hypotension I95.9 Kidney calculi Syncope R55 Allergies morphine Allergy (Verified 05/15/19 21:44) Other Home Medications: Ambulatory Orders Medication Instructions Recorded Atorvastatin Calcium [Lipitor] 10 mg PO QHS 10/14/18 Gabapentin [Neurontin] 400 mg PO TIDCM 10/14/18 Amitriptyline HCl [Elavil] 100 mg PO QHS 01/30/19 Cilostazol 100 mg PO BID 05/18/19 Clopidogrel Bisulfate [Plavix] 75 mg PO DAILY 05/18/19 Pantoprazole Sodium [Protonix] 40 mg PO BID #60 tab 05/18/19 Acetaminophen [Tylenol Extra 500 mg PO QHS 07/30/19 Strength] Ipratropium/Albuterol Respimat 1 puff INHALATION DAILY 07/30/19 [Combivent Respimat Inhal Ismay] Lisinopril 5 mg PO DAILY 07/30/19 Omeprazole 20 mg PO BID 07/30/19 Surgical History: Surgical History (Last Updated 07/14/19 @ 19:15 by Sandi Fitzgerald) History of left-sided carotid endarterectomy Onset Date: 2014 [id number] Surgical History: - - Hand surgery for trigger finger. Surgery on her wrist at x2. 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 Len was placed in left femur. Carotid endarterectomy. Bladder surgery for cancer. Lives: Spouse/ Significant Other Smoking Status: Former smoker Tobacco Use: Cigarettes Alcohol: None Drugs: None - *Family History Maternal Family History: Family History (Last Reviewed 05/17/19 @ 09:06 by Amy Jimenez PA-C) Father Lung cancer Brother Throat cancer Brother Stomach cancer Mother Heart problem History Items: Heart Disease Paternal Family History: Family History (Last Reviewed 05/17/19 @ 09:06 by Amy Jimenez PA-C) Father Lung cancer Brother Throat cancer Brother Stomach cancer Mother Heart problem History Items: Cancer - lung Sibling Family History: Family History (Last Reviewed 05/17/19 @ 09:06 by Amy Jimenez PA-C) Father Lung cancer Brother Throat cancer Brother Stomach cancer Mother Heart problem History Items: Cancer - throat and stomach Review of Systems Constitutional: Denies: Chills, Fever, Malaise, Weakness, Weight Change, Fatigue Eyes: Denies: Blurred vision HEENT: Denies: Head Aches, Sinus Congestion, Sinus Drainage Cardiovascular: Reports: Light Headedness. Denies: Chest Pain, Palpitations, Paroxysmal Noc. Dyspnea, Syncope Respiratory: Denies: Cough, Shortness of breath at rest, Sputum production Gastrointestinal: Denies: Abdominal Pain, Nausea, Vomiting Genitourinary: Denies: Dysuria Musculoskeletal: Denies: Joint Pain, Joint Tenderness Skin: Denies: Rash, Wounds Neurological: Denies: Numbness, Tingling, Focal weakness Psychiatric: Denies: Anxiety, Depression, Homicidal Ideations, Suicidal Ideations Hematologic/ Lymphatic: Denies: Easy Bruising, Easy Bleeding VTE Information - Inpt Only VTE Present on Admission: No VTE Pharm Prophylaxis ordered?: Yes Patient Problems: Active and Suspected Problems (Last Updated 07/14/19 @ 19:16 by Sandi Fitzgerald) Hypotension (Acute) Lactic acidosis (Acute) Acute kidney injury (Acute) Hypoxia (Acute) - Physical Exam General: Alert, Oriented x3, Cooperative, No apparent distress, Lethargic HEENT: Atraumatic, PERRLA, EOMI, Normocephalic Oral: Dry Mucosa Neck: Supple, No JVD, Negative Carotid Bruits Lungs: Clear to auscultation, Normal air movement, No rhonchi, No wheeze, No rales Cardiovascular: Regular rate, Regular Rhythm, Normal S1, Normal S2, No murmurs Abdomen: Bowel Sounds Present, Soft, Non Tender, Non-Distended, No Hepato-sp lenomegaly Extremities: No clubbing, No cyanosis, No edema, Capillary Refill Less than 3 Seconds Skin: No rashes, No breakdown Musculoskeletal: No Tenderness to Palpation of Joints or Extremities Lymphatic: No Cervical, Supraclavicular, or Inguinal Adenopathy Neurological: Cranial nerves II-XII grossly intact, Neuro grossly intact, Motor Exam 5/5 strength throughout Psych/Mental Status: Normal Affect, Appropriate, Alert and oriented to time, place, person, mood and affect Vital Signs Temp Pulse Resp BP Pulse Ox 97.5 F L 83 17 120/72 97 07/30/19 17:08 07/30/19 17:09 07/30/19 17:19 17:09 07/30/19 17:08 Oxygen Flow Rate (L/min) 2 Oxygen Delivery Method Nasal Cannula Weight: 183 lb 10.321 oz Body Mass Index (BMI) 25.6 Finger Stick Blood Glucose 134 Intake and Output for Last 24 Hours 07/28/19 07/29/19 07/30/19 23:59 23:59 23:59 Intake Total 1000 / 1000 Balance 1000 / 1000 Laboratory Tests Past 24 Hrs 07/30/19 07/30/19 07/30/19 14:44 14:44 14:44 WBC 15.8 H RBC 4.69 Hgb 14.4 Hct 45.2 MCV 96.4 H MCH 30.7 MCHC 31.9 L RDW Std Deviation 50.4 H RDW Coeff of Ruperto 14.1 Plt Count 336 MPV 9.0 PT 13.6 INR 1.1 APTT 28.6 Specimen Type VBG pH VBG pO2 VBG O2 Sat (Calc) VBG O2 Content VBG Base Excess POC Mix VBG pCO2 Pt Tmp O2 Delivery Device Liter Flow Blood Gas Notified Whom Blood Gas Notified Time Sodium 144 Potassium 4.5 Chloride 109 H Carbon Dioxide 26.0 Anion Gap 9 BUN 30 H Creatinine 2.52 H Estim Creat Clear Calc 29.47 Est GFR (MDRD) Af Amer 33 L Est GFR (MDRD) Non-Af 27 L BUN/Creatinine Ratio 11.9 Glucose 102 Lactic Acid Calcium 8.8 Troponin I < 0.015 Urine Color Urine Clarity Urine pH Ur Specific Aline Urine Protein Urine Glucose (UA) Urine Ketones Urine Occult Blood Urine Nitrite Urine Bilirubin Urine Urobilinogen Ur Leukocyte Esterase Urine RBC Urine WBC Ur Squamous Epith Cells Urine Bacteria Urine Mucus 07/30/19 07/30/19 07/30/19 14:44 15:31 16:35 WBC RBC Hgb Hct MCV MCH MCHC RDW Std Deviation RDW Coeff of Ruperto Plt Count MPV PT INR APTT Specimen Type HERBERT VBG pH 7.39 VBG pO2 54 H VBG O2 Sat (Calc) 88 H VBG O2 Content 23 VBG Base Excess -3 L POC Mix VBG pCO2 Pt Tmp 35.5 L O2 Delivery Device Nasal Can Liter Flow 3.0 Blood Gas Notified Whom ED Blood Gas Notified Time 1529 Sodium Potassium Chloride Carbon Dioxide Anion Gap BUN Creatinine Estim Creat Clear Calc Est GFR (MDRD) Af Amer Est GFR (MDRD) Non-Af BUN/Creatinine Ratio Glucose Lactic Acid 2.6 H Calcium Troponin I Urine Color Yellow Urine Clarity Clear Urine pH 6.5 Ur Specific Aline 1.005 Urine Protein 30 H Urine Glucose (UA) Normal Urine Ketones Negative Urine Occult Blood Negative Urine Nitrite Negative Urine Bilirubin Negative Urine Urobilinogen Normal Ur Leukocyte Esterase Negative Urine RBC 0 SEEN Urine WBC 0 SEEN Ur Squamous Epith Cells 0 SEEN Urine Bacteria 0 SEEN Urine Mucus 0 SEEN Diagnostic Data Chest X-Ray 07/30/19 14:47 IMPRESSION: Degenerative changes, as described above. No demonstrated acute cardiopulmonary process. Electronically Signed: Janes Tatum MD at 15:11 EDT , Service support , Chest CTA 07/30/19 14:58 IMPRESSION: No demonstrated PE, thoracic aortic aneurysm or dissection Hyperexpanded lungs with emphysematous blebs in apices, and chronic interstitial fibrotic changes in both lung mackey with dependent atelectasis and pleural thickening. No organized infiltrate or effusion Calcified coronary vessels Degenerative bony changes Left renal cyst Electronically Signed: Janes Tatum MD at 15:45 EDT , Service support , Assessment/Plan All Active Problems (Last Updated 07/14/19 @ 19:16 by Sandi Fitzgerald) Hypotension (Acute) Lactic acidosis (Acute) Acute kidney injury (Acute) Hypoxia (Acute) Acute kidney injury (Resolved) Coffee ground emesis (Resolved) Confusion (Resolved) 68-year-old male admitted with complaint of hypotension and dizziness as well as lightheadedness. 1. Acute symptomatic hypotension * has a history of orthostatic hypotension * BP in 80s systolic on arrival in ED; was in 50s systolic at home * admit to pCU with stepdown status * hydrate aggressively with IVF NS; check orthostatics * sodium and potassium were WNL * stop lisinopril * fall precautions * PT/OT consult * in light of recurrent episodes of orthostatic hypotension, I think it is reasonable to investigate for possible adrenal insufficiency. WIll check random cortisol level and baseline cortisol level tomorrow. * to consider starting on midodrine or fludrocortisone at discharge, and also possible LE stockings to help with vascular support * 2. DAWN: * Creatinine is 2.52. Baseline from May was around 1 though from records, it was creatinine but the past he has been around 1.49. * Hydrate with IV fluids and monitor. Likely prerenal due to hypotension. * Stop lisinopril. * 3. Lactic acidosis: * Lactic acid was 2.6. * Though he also had leukocytosis, I do not think this is infectious in nature and likely reactive as patient has no evidence of infection. * There is no tenderness at site of epidural injection and the laparoscopic sites are well-healed and chest x-ray showed no evidence of infection. * Severe hypotension is likely the cause of the lactic acidosis and leukocytosis may be reactive. * Will hydrate with IV fluids and monitor. * 4. Hyperlipidemia: On statin. 5. PAD: On cilostazol and Plavix as well as atorvastatin. 6. COPD: Chest x-ray showed no acute cardia pulmonary process. Continue breathing treatments. 9. History of bladder cancer and basal cell carcinoma: Stable. DVT prophylaxis: Lovenox renally dose CODE STATUS: Full code * Patient counseled extensively about different types of CODE STATUS including full code, DNR CCA and DNR CCA. Patient elects to be full code. Total slet-hh-mnnh time 16 minutes. Code Visit Inpatient E&M: 67981 Init Hosp L3 Procedures: 79098 Advncd Care Plan 30 Min
[2019-07-30] MEDS: 0.9% Normal Saline 1,000 ML 150 ML IV (18:49)
[2019-07-30 18:54] LABS: Reflex Lactate? Y
[2019-07-30] MEDS: Ipratropium/Albuterol Sulfate 3 ML AMPUL.NEB INHALATION (20:27)
[2019-07-30] MEDS: Acetaminophen 500 MG Tablet PO (21:38)
[2019-07-30] MEDS: Amitriptyline 100 MG Tablet PO (21:38)
[2019-07-30] MEDS: Atorvastatin Calcium 10 MG Tablet PO (21:39)
[2019-07-30] MEDS: Pantoprazole Sodium 40 MG Tablet PO (21:39)
[2019-07-31] VITALS (20 sets, daily range): BP systolic 58–158; BP diastolic 40–98; PULSE 63–97; RESP 13–18; TEMP 36.6–36.8; O2SAT 93–98
[2019-07-31] MEDS: 0.9% Normal Saline 1,000 ML 999 ML IV (01:12)
[2019-07-31] MEDS: 0.9% Normal Saline 1,000 ML 150 ML IV ×3 (02:59→17:17)
[2019-07-31 05:30] LABS: Absolute Lymphocyte Count 1.67 X10^3/uL (0.83-4.51); Absolute Neutrophil Count 8.2 X10^3/uL (2.0-7.7); Basophil# 0.06 X10^3/uL; Basophil% 0.5 % (0-1); Eosinophil# 0.32 X10^3/uL; Eosinophils% 2.8 % (0-5); Hematocrit 42.8 % (40-54); Hemoglobin 13.7 g/dL (13.0-16.5); Lymphocyte # 1.67 X10^3/ul (4.0); Lymphocyte % 14.8 % (19-41); Mean Corpuscular Volume 96.8 fL (80-94); Mean Platelet Vol. 8.8 fl (6.2-12.0); Monocyte# 0.94 X10^3/uL; Monocyte% 8.4 % (0-10); NRBC Flagged by Analyzer 0 % (0-5); Neutrophil # 8.18 X10^3/uL (2.7-7.7); Neutrophil % 72.8 % (47-70); Platelet Count 291 K/mm3 (150-450); RBC Distribution Width CV 14.1 % (11.6-14.6); RBC Distribution Width SD 50.4 fl (35.1-43.9); Red Blood Count 4.42 M/mm3 (4.6-6.2); White Blood Count 11.3 K/mm3 (4.4-11.0)
[2019-07-31 05:51] LABS: Anion Gap 6 (5-15); BUN 23 mg/dL (7-18); BUN/Creat Ratio 14.9 RATIO (10-20); Chloride 119 mmol/L (98-107); Creatinine, Serum 1.54 mg/dL (0.70-1.30); EST Glomerular Filtration Rate 48 mL/min (>60); Est Glom Filt Rate - Afr Amer 58 mL/min (>60); Estimated Creatinine Clearance 48.22 ml/min; Glucose 97 mg/dL (74-106); Potassium 4.6 mmol/L (3.5-5.1); Sodium Level 148 mmol/L (136-145)
[2019-07-31 05:55] LABS: Lactic Acid 1.3 mmol/L (0.4-2.0)
[2019-07-31] MEDS: Cilostazol 50 MG Tablet 100 MG PO ×2 (06:48→08:54)
--- NOTE | 2019-07-31 07:35 | PN_ITS ---
Patient Problems: Active and Suspected Problems (Last Updated 07/14/19 @ 19:16 by Sandi Fitzgerald) Hypotension (Acute) Lactic acidosis (Acute) Acute kidney injury (Acute) Hypoxia (Acute) Subjective: CC follow-up orthostatic hypotension, acute kidney injury Patient is a 68-year-old gentleman who presented to the emergency department with dizziness and lightheadedness. Patient was found to be orthostatic. Was also found to have acute kidney injury admitted to monitored bed for further management. Objective: GENERAL: cooperative HEENT: Atraumatic; moist oral mucosa EYES; Anicteric, Normal Conjunctiva NECK; supple, normal thyroid, . RESPIRATORY: Diminished to auscultation bilaterally, CARDIOVASCULAR: Regular S1 S2, GI: soft, non-tender, normoactive bowel sounds, : No Renal angle tenderness; EXTREMITIES: No edema, no clubbing, no cyanosis. MUSCULOSKELETAL: No Joint Tenderness; NEURO: Awake; no lateralizing signs. SKIN: No Rash PSYCH; Normal affect Vitals/I&O's: Vital Signs Temp Pulse Resp BP Pulse Ox 98.0 F 78 15 143/80 H 97 07/31/19 06:00 07/31/19 07:00 07/31/19 06:00 07/31/19 06:49 07/31/19 06:00 Oxygen Flow Rate (L/min) 1.5 Oxygen Delivery Method Room Air Weight: 82.6 kg Body Mass Index (BMI) 25.4 Finger Stick Blood Glucose 134 Orthostatic Vital Signs Start: 07/31/19 06:46 Freq: q24h Status: Active Protocol: Activity Type Activity Date Activity User E-Sign Co-Sign Detail Recorded Client Recorded Date Recorded By Document 07/31/19 06:49 CAD [id number] 07/31/19 06:58 CAD 07/31/19 06:49 Orthostatic Vitals Standing -Blood Pressure (90/60-120/80) 103/65 -Extremity Use Left Arm -Pulse Rate (60-100) 80 Sitting -Blood Pressure (90/60-120/80) 158/75 H -Extremity Use Left Arm -Pulse Rate (60-100) 81 Lying -Blood Pressure (90/60-120/80) 143/80 H -Extremity Use Left Arm -Pulse Rate (60-100) 77 Intake and Output for Last 24 Hours 07/29/19 07/30/19 07/31/19 23:59 23:59 23:59 Intake Total 2775 / 2775 1465.0 / 1465.0 Output Total 1800 / 1800 Balance 2775 / 2775 -335.0 / -335.0 Laboratory Results 07/30/19 14:44: WBC 15.8 H, RBC 4.69, Hgb 14.4, Hct 45.2, MCV 96.4 H, MCH 30.7, MCHC 31.9 L, RDW Std Deviation 50.4 H, RDW Coeff of Ruperto 14.1, Plt Count 336, MPV 9.0 07/30/19 14:44: PT 13.6, INR 1.1, APTT 28.6 07/30/19 14:44: Sodium 144, Potassium 4.5, Chloride 109 H, Carbon Dioxide 26.0, Anion Gap 9, BUN 30 H, Creatinine 2.52 H, Estim Creat Clear Calc 29.47, Est GFR (MDRD) Af Amer 33 L, Est GFR (MDRD) Non-Af 27 L, BUN/Creatinine Ratio 11.9, Glucose 102, Calcium 8.8, Troponin I < 0.015 07/30/19 14:44: Lactic Acid 2.6 H 07/30/19 14:44: Cortisol 3.60 07/30/19 15:31: Specimen Type HERBERT, VBG pH 7.39, VBG pO2 54 H, VBG O2 Sat (Calc) 88 H, VBG O2 Content 23, VBG Base Excess -3 L, POC Mix VBG pCO2 Pt Tmp 35.5 L, O2 Delivery Device Nasal Can, Liter Flow 3.0, Blood Gas Notified Whom ED , Blood Gas Notified Time 1529 07/30/19 16:35: Urine Color Yellow, Urine Clarity Clear, Urine pH 6.5, Ur Specific [place] 1.005, Urine Protein 30 H, Urine Glucose (UA) Normal, Urine Ketones Negative, Urine Occult Blood Negative, Urine Nitrite Negative, Urine Bilirubin Negative, Urine Urobilinogen Normal, Ur Leukocyte Esterase Negative, Urine RBC 0 SEEN, Urine WBC 0 SEEN, Ur Squamous Epith Cells 0 SEEN, Urine Bacteria 0 SEEN, Urine Mucus 0 SEEN 07/30/19 19:20: Lactic Acid Cancelled 07/31/19 05:15: WBC 11.3 H, RBC 4.42 L, Hgb 13.7, Hct 42.8, MCV 96.8 H, MCH 31.0, MCHC 32.0, RDW Std Deviation 50.4 H, RDW Coeff of Ruperto 14.1, Plt Count 291, MPV 8.8, Immature Gran % (Auto) 0.700, Neut % (Auto) 72.8 H, Lymph % (Auto) 14.8 L, Addison % (Auto) 8.4, Eos % (Auto) 2.8, Baso % (Auto) 0.5, Absolute Neuts (auto) 8.2 H, Absolute Lymphs (auto) 1.67, Nucleated RBC % 0 07/31/19 05:15: Sodium 148 H, Potassium 4.6, Chloride 119 H, Carbon Dioxide 23.0, Anion Gap 6, BUN 23 H, Creatinine 1.54 H, Estim Creat Clear Calc 48.22, Est GFR (MDRD) Af Amer 58 L, Est GFR (MDRD) Non-Af 48 L, BUN/Creatinine Ratio 14.9, Glucose 97, Calcium 8.0 L 07/31/19 05:15: Cortisol Pending 07/31/19 05:15: Lactic Acid 1.3 Current Medications Acetaminophen (Tylenol) 500 mg PO QHS [facility] Last Admin: 07/30/19 21:38 Dose: 500 mg Documented by: Albuterol/Ipratropium (Duoneb) 3 ml INHALATION Q6HWA.RT [facility] Last Admin: 07/30/19 20:27 Dose: 3 ml Documented by: Amitriptyline HCl (Elavil) 100 mg PO QHS [facility] Last Admin: 07/30/19 21:38 Dose: 100 mg Documented by: Atorvastatin Calcium (Lipitor) 10 mg PO QHS [facility] Last Admin: 07/30/19 21:39 Dose: 10 mg Documented by: Cilostazol (Pletal) 100 mg PO BIDAC [facility] Last Admin: 07/31/19 06:48 Dose: 100 mg Documented by: Clopidogrel Bisulfate (Plavix) 75 mg PO DAILY [facility] Dextrose (D50w Syringe) 0 gm IV X1 PRN; Protocol PRN Reason: Hypoglycemia Enoxaparin Sodium (Lovenox) 30 mg SC DAILY@1000 [facility] Gabapentin (Neurontin) 400 mg PO TIDCM [facility] Glucagon () 1 mg IM .X1 PRN PRN Reason: Hypoglycemia Sodium Chloride () 1,000 mls @ 150 mls/hr IV .Q6H40M [facility] Last Admin: 07/31/19 02:59 Dose: 150 mls/hr Documented by: Pantoprazole Sodium (Protonix) 40 mg PO BID [facility] Last Admin: 07/30/19 21:39 Dose: 40 mg Documented by: Medical Necessity - Tobacco Use Smoking Status: Current every day smoker Tobacco Use: Cigarettes Assessment/Plan All Active Problems (Last Updated 07/14/19 @ 19:16 by Sandi Fitzgerald) Hypotension (Acute) Lactic acidosis (Acute) Acute kidney injury (Acute) Hypoxia (Acute) Acute kidney injury (Resolved) Coffee ground emesis (Resolved) Confusion (Resolved) Patient is a 68-year-old gentleman who presented to the emergency department w ith dizziness and lightheadedness. Patient was found to be orthostatic. Was also found to have acute kidney injury admitted to monitored bed for further management. 1. Presyncope ~ Secondary to orthostatic hypotension from dehydration: Admitted to monitored bed patient rehydrated with IV fluids. As part of management and recurrent orthostatic hypotension cortisol assay was sent. 2. Acute kidney injury ~suspected to be secondary to dehydration managed with IV fluids kidney function improving 3. Lactic acidosis ~Patient did not have any evidence of infection it was felt patient lactic acidosis was from his hypotension 4. Dyslipidemia ~patient is on statin therapy, continued at home dose 5. COPD ?Not seen exacerbation did continue patient breathing treatment 6. History of bladder cancer Currently in remission 7. Peripheral arterial disease ~patient is on cilostazol and Plavix in addition to statin therapy 8. DVT prophylaxis ~ on enoxaparin Code Visit Inpatient E&M: [id number] [facility] Hosp L2
[2019-07-31] MEDS: Ipratropium/Albuterol Sulfate 3 ML AMPUL.NEB INHALATION ×3 (07:36→20:30)
[2019-07-31] MEDS: Pantoprazole Sodium 40 MG Tablet PO ×2 (08:54→21:36)
[2019-07-31] MEDS: Clopidogrel Bisulfate 75 MG Tablet PO (08:54)
[2019-07-31] MEDS: Enoxaparin 30 MG/0.3 ML Syringe SC (08:54)
[2019-07-31] MEDS: Gabapentin 400 MG Capsule PO ×3 (08:54→17:17)
--- NOTE | 2019-07-31 17:39 | CM.UR ---
RN CM Assessment Introduced role of RN CM to patient. No family at bedside. Patient is alert, oriented and able?to participate in RN CM Assessment. ?Care providers, pharmacy, and demographics verified. Presentation: Dizziness Admit Dx: Hypotension. Re-Admit: No Barriers/Issues: none PCP: Lizabeth Ruiz Specialists: Nephro- Dr Gomez, Pain Man- Dr Johnson, Vasc- Dr Olson, Neuro- Dr Dupree Preferred Pharmacy: [facility] Insurance: [facility] Benef[facility]:?Yes LNOK: Clarice Bhatia LW/HPOA: Yes. Clarice is HPOA. Alerted to bring in copy. Living Arrangements:?Lives with in a 1 story home, 5 steps to enter ADL?s: Independent with ambulation and ADLs Transportation: Patient drives, as needed. DME: CPAP- [employer], has 2 built in shower chairs HHC: None SNF: Past, cannot recall which one. Goal: Home, denies needs. DC PLAN: Home with no anticipated needs identified at this time. Aaliyah Kelly RN, CCM.
[2019-07-31] MEDS: Amitriptyline 100 MG Tablet PO (21:36)
[2019-07-31] MEDS: Acetaminophen 500 MG Tablet PO (21:36)
[2019-07-31] MEDS: Atorvastatin Calcium 10 MG Tablet PO (21:36)
[2019-08-01] VITALS (12 sets, daily range): BP systolic 127–188; BP diastolic 76–103; PULSE 71–106; RESP 18–20; TEMP 36.6–36.9; O2SAT 93–94
[2019-08-01] MEDS: 0.9% Normal Saline 1,000 ML 150 ML IV ×2 (00:10→07:26)
[2019-08-01 06:05] LABS: Anion Gap 6 (5-15); BUN 20 mg/dL (7-18); BUN/Creat Ratio 14.9 RATIO (10-20); Calcium,Total 8.5 mg/dL (8.5-10.1); Chloride 116 mmol/L (98-107); Creatinine, Serum 1.34 mg/dL (0.70-1.30); EST Glomerular Filtration Rate 56 mL/min (>60); Est Glom Filt Rate - Afr Amer 68 mL/min (>60); Estimated Creatinine Clearance 55.41 ml/min; Glucose 87 mg/dL (74-106); Magnesium 1.9 mg/dL (1.6-2.6); Potassium 4.4 mmol/L (3.5-5.1); Sodium Level 146 mmol/L (136-145)
[2019-08-01] MEDS: Cilostazol 50 MG Tablet 100 MG PO ×2 (06:35→17:02)
[2019-08-01] MEDS: Ipratropium/Albuterol Sulfate 3 ML AMPUL.NEB INHALATION ×3 (07:05→19:07)
--- NOTE | 2019-08-01 07:26 | PCM.PN.HOSP ---
Patient Problems: Active and Suspected Problems (Last Updated 07/14/19 @ 19:16 by Sandi Fitzgerald) Hypotension (Acute) Lactic acidosis (Acute) Acute kidney injury (Acute) Hypoxia (Acute) Subjective: CC follow-up recurrent syncopal episode Patient seen admits to some improvement in his dizziness. However patient still remains orthostatic. Creatinine down to 1.34. An order was placed for TSH per 's request patient also scheduled to undergo a cosyntropin stimulation test in a.m. consult placed to patient's molding supervisor Dr. Gomez again per request from patient's Objective: GENERAL: cooperative HEENT: Atraumatic; moist oral mucosa EYES; Anicteric, Normal Conjunctiva NECK; supple, normal thyroid, . RESPIRATORY: Diminished to auscultation bilaterally, CARDIOVASCULAR: Regular S1 S2, GI: soft, non-tender, normoactive bowel sounds, : No Renal angle tenderness; EXTREMITIES: No edema, no clubbing, no cyanosis. MUSCULOSKELETAL: No Joint Tenderness; NEURO: Awake; no lateralizing signs. SKIN: No Rash PSYCH; Normal affect Vitals/I&O's: Vital Signs Temp Pulse Resp BP Pulse Ox 97.8 F 78 18 145/89 H 94 08/01/19 03:35 08/01/19 07:05 08/01/19 07:05 08/01/19 06:36 08/01/19 07:05 Oxygen Flow Rate (L/min) 2 Oxygen Delivery Method Room Air Weight: 82.6 kg Body Mass Index (BMI) 25.4 Finger Stick Blood Glucose 134 Orthostatic Vital Signs Start: 07/31/19 06:46 Freq: q24h Status: Active Protocol: Activity Type Activity Date Activity User E-Sign Co-Sign Detail Recorded Client Recorded Date Recorded By Document 08/01/19 06:36 CAD [id number] 08/01/19 06:46 CAD 08/01/19 06:36 Orthostatic Vitals Standing -Blood Pressure (90/60-120/80 mm Hg) 127/78 H -Extremity Use Left Arm -Pulse Rate (60-100 beats/min) 91 Sitting -Blood Pressure (90/60-120/80 mm Hg) 188/103 H -Extremity Use Left Arm -Pulse Rate (60-100 beats/min) 88 Lying -Blood Pressure (90/60-120/80 mm Hg) 145/89 H -Extremity Use Left Arm -Pulse Rate (60-100 beats/min) 82 Intake and Output for Last 24 Hours 07/30/19 07/31/19 08/01/19 23:59 23:59 23:59 Intake Total 2775 / 2775 4185.0 / 4185.0 2360 / 2360 Output Total 3675 / 3675 2600 / 2600 Balance 2775 / 2775 510.0 / 510.0 -240 / -240 Laboratory Results 08/01/19 05:09: Sodium 146 H, Potassium 4.4, Chloride 116 H, Carbon Dioxide 24.0, Anion Gap 6, BUN 20 H, Creatinine 1.34 H, Estim Creat Clear Calc 55.41, Est GFR (MDRD) Af Amer 68, Est GFR (MDRD) Non-Af 56 L, BUN/Creatinine Ratio 14.9, Glucose 87, Calcium 8.5, Magnesium 1.9 Current Medications Acetaminophen (Tylenol) 500 mg PO QHS [facility] Last Admin: 07/31/19 21:36 Dose: 500 mg Documented by: Albuterol/Ipratropium (Duoneb) 3 ml INHALATION Q6HWA.RT [facility] Last Admin: 08/01/19 07:05 Dose: 3 ml Documented by: Amitriptyline HCl (Elavil) 100 mg PO QHS [facility] Last Admin: 07/31/19 21:36 Dose: 100 mg Documented by: Atorvastatin Calcium (Lipitor) 10 mg PO QHS [facility] Last Admin: 07/31/19 21:36 Dose: 10 mg Documented by: Cilostazol (Pletal) 100 mg PO BIDAC [facility] Last Admin: 08/01/19 06:35 Dose: 100 mg Documented by: Clopidogrel Bisulfate (Plavix) 75 mg PO DAILY [facility] Last Admin: 07/31/19 08:54 Dose: 75 mg Documented by: Dextrose (D50w Syringe) 0 gm IV X1 PRN; Protocol PRN Reason: Hypoglycemia Enoxaparin Sodium (Lovenox) 30 mg SC DAILY@1000 [facility] Last Admin: 07/31/19 08:54 Dose: 30 mg Documented by: Gabapentin (Neurontin) 400 mg PO TIDCM [facility] Last Admin: 07/31/19 17:17 Dose: 400 mg Documented by: Glucagon () 1 mg IM .X1 PRN PRN Reason: Hypoglycemia Sodium Chloride () 1,000 mls @ 150 mls/hr IV .Q6H40M [facility] Last Admin: 08/01/19 07:26 Dose: 150 mls/hr Documented by: Sodium Chloride () 250 mls @ 15 mls/hr IV .[id number] PRN PRN Reason: SALINE FLUSH Pantoprazole Sodium (Protonix) 40 mg PO BID [facility] Last Admin: 07/31/19 21:36 Dose: 40 mg Documented by: Sodium Chloride () 10 - 40 ml IV UD PRN PRN Reason: SALINE FLUSH Medical Necessity - Tobacco Use Smoking Status: Current every day smoker Tobacco Use: Cigarettes Assessment/Plan All Active Problems (Last Updated 07/14/19 @ 19:16 by Sandi Fitzgerald) Hypotension (Acute) Lactic acidosis (Acute) Acute kidney injury (Acute) Hypoxia (Acute) Acute kidney injury (Resolved) Coffee ground emesis (Resolved) Confusion (Resolved) Patient is a 68-year-old gentleman who presented to the emergency department with dizziness and lightheadedness. Patient was found to be orthostatic. Was also found to have acute kidney injury admitted to monitored bed for further management. 1. Presyncope ~ Secondary to orthostatic hypotension from dehydration: Admitted to monitored bed patient rehydrated with IV fluids. As part of management and recurrent orthostatic hypotension cortisol assay was sent. - 08/01/2019:Patient seen admits to some improvement in his dizziness. However patient still remains orthostatic. Creatinine down to 1.34. An order was placed for TSH per 's request patient also scheduled to undergo a cosyntropin stimulation test in a.m. 2. Acute kidney injury ~suspected to be secondary to dehydration managed with IV fluids kidney function improving - 08/01/2019 consult placed to patient's molding supervisor Dr. Gomez again per request from patient's 3. Lactic acidosis ~Patient did not have any evidence of infection it was felt patient lactic acidosis was from his hypotension 4. Dyslipidemia ~patient is on statin therapy, continued at home dose 5. COPD ?Not seen exacerbation did continue patient breathing treatment 6. History of bladder cancer Currently in remission 7. Peripheral arterial disease ~patient is on cilostazol and Plavix in addition to statin therapy 8. DVT prophylaxis ~ on enoxaparin Code Visit Inpatient E&M: 18282 Subs Hosp L2
[2019-08-01] MEDS: Gabapentin 400 MG Capsule PO ×3 (07:39→17:02)
[2019-08-01] MEDS: Clopidogrel Bisulfate 75 MG Tablet PO (09:31)
[2019-08-01] MEDS: Enoxaparin 30 MG/0.3 ML Syringe SC (09:32)
[2019-08-01] MEDS: 0.45% Normal Saline 1,000 ML 100 ML IV ×2 (09:35→20:27)
[2019-08-01] MEDS: Pantoprazole Sodium 40 MG Tablet PO ×2 (09:38→22:00)
[2019-08-01 12:25] LABS: Thyroid Stim Hormone (TSH) 1.51 uIU/mL (0.358-3.74)
[2019-08-01] MEDS: 0.9% NaCl Peripheral Flush Adult/Peds IV ×2 (18:00→20:27)
[2019-08-01] MEDS: Acetaminophen 500 MG Tablet PO (22:01)
[2019-08-01] MEDS: Amitriptyline 100 MG Tablet PO (22:01)
[2019-08-01] MEDS: Atorvastatin Calcium 10 MG Tablet PO (22:01)
[2019-08-02] VITALS (17 sets, daily range): BP systolic 57–173; BP diastolic 36–117; PULSE 77–193; RESP 16–20; TEMP 36.4–36.8; O2SAT 94–98
[2019-08-02] MEDS: 0.45% Normal Saline 1,000 ML 100 ML IV ×2 (06:35→17:03)
[2019-08-02] MEDS: Cilostazol 50 MG Tablet 100 MG PO ×2 (06:36→17:04)
[2019-08-02] MEDS: Ipratropium/Albuterol Sulfate 3 ML AMPUL.NEB INHALATION ×3 (06:53→19:49)
[2019-08-02] MEDS: Enoxaparin 30 MG/0.3 ML Syringe SC (08:58)
[2019-08-02] MEDS: Clopidogrel Bisulfate 75 MG Tablet PO (08:58)
[2019-08-02] MEDS: Gabapentin 400 MG Capsule PO ×3 (08:58→17:05)
[2019-08-02] MEDS: Pantoprazole Sodium 40 MG Tablet PO ×2 (08:58→21:46)
[2019-08-02] MEDS: Hydrocortisone 10 MG Tablet PO ×2 (12:08→17:05)
--- NOTE | 2019-08-02 16:23 | PCM.PN.HOSP ---
Patient Problems: Active and Suspected Problems (Last Updated 07/14/19 @ 19:16 by Sandi Fitzgerald) Hypotension (Acute) Lactic acidosis (Acute) Acute kidney injury (Acute) Hypoxia (Acute) Subjective: Patient denies dizziness, tachycardia. Orthostatic blood pressures shows change from 173/99, heart rate 87 on supine position 153/117, 89 on sitting position 57/36, heart rate 101 and understanding position. Result of cosyntropin test which is positive for adrenal insufficiency discussed with the patient. Vitals/I&O's: Vital Signs Temp Pulse Resp BP Pulse Ox 98.3 F 98 18 97/66 96 08/02/19 14:15 08/02/19 14:21 08/02/19 14:15 08/02/19 14:15 08/02/19 14:21 Oxygen Flow Rate (L/min) 2 Oxygen Delivery Method Room Air Weight: 182 lb 1.629 oz Body Mass Index (BMI) 25.4 Finger Stick Blood Glucose 134 Orthostatic Vital Signs Start: 07/31/19 06:46 Freq: q24h Status: Active Protocol: Activity Type Activity Date Activity User E-Sign Co-Sign Detail Recorded Client Recorded Date Recorded By Document 08/02/19 06:49 CAD [id number] 08/02/19 06:48 CAD 08/02/19 06:49 Orthostatic Vitals Standing -Blood Pressure (90/60-120/80) 57/36 L -Extremity Use Right Arm -Pulse Rate (60-100) 101 H Sitting -Blood Pressure (90/60-120/80) 153/117 H -Extremity Use Right Arm -Pulse Rate (60-100) 89 Lying -Blood Pressure (90/60-120/80) 173/99 H -Extremity Use Right Arm -Pulse Rate (60-100) 87 Intake and Output for Last 24 Hours 07/31/19 08/01/19 08/02/19 23:59 23:59 23:59 Intake Total 4185.0 / 4185.0 4630 / 4990 1780 Output Total 3675 / 3675 5175 / 5175 Balance 510.0 / 510.0 -545 / -185 1780 General: Alert, Oriented x3, Cooperative HEENT: Atraumatic, PERRLA, EOMI, Normocephalic Neck: Supple, No JVD, Negative Carotid Bruits Lungs: Clear to auscultation, Normal air movement, No rhonchi, No wheeze, No rales Cardiovascular: Regular rate, Regular Rhythm, Normal S1, Normal S2, No murmurs Abdomen: Bowel Sounds Present, Soft, Non Tender, Non-Distended Extremities: No edema, Capillary Refill Less than 3 Seconds Skin: No rashes, No breakdown Musculoskeletal: No Tenderness to Palpation of Joints or Extremities, Arthritic Changes Neurological: Cranial nerves II-XII grossly intact, Deep Tendon Reflexes 2+/4 and Symmetrical, Neuro grossly intact Psych/Mental Status: Normal Affect, Appropriate Microbiology Past 72 Hours 07/30/19 16:10 Blood Culture (Wb) - Right Hand Blood Culture - Preliminary No growth in 48 hours. 07/30/19 16:40 Blood Culture (Wb) - Anticubital Left Blood Culture - Preliminary No growth in 48 hours. Laboratory Results 07/31/19 05:15: Cortisol 1.60 L 08/02/19 06:30: Cortisol 1.90 L 08/02/19 06:30: ACTH Pending 08/02/19 07:05: Cortisol 11.40 08/02/19 07:36: Cortisol 16.30 Current Medications Acetaminophen (Tylenol) 500 mg PO QHS [facility] Last Admin: 08/01/19 22:01 Dose: 500 mg Documented by: Albuterol/Ipratropium (Duoneb) 3 ml INHALATION Q6HWA.RT [facility] Last Admin: 08/02/19 12:45 Dose: 3 ml Documented by: Amitriptyline HCl (Elavil) 100 mg PO QHS [facility] Last Admin: 08/01/19 22:01 Dose: 100 mg Documented by: Atorvastatin Calcium (Lipitor) 10 mg PO QHS [facility] Last Admin: 08/01/19 22:01 Dose: 10 mg Documented by: Cilostazol (Pletal) 100 mg PO BIDAC [facility] Last Admin: 08/02/19 06:36 Dose: 100 mg Documented by: Clopidogrel Bisulfate (Plavix) 75 mg PO DAILY [facility] Last Admin: 08/02/19 08:58 Dose: 75 mg Documented by: Enoxaparin Sodium (Lovenox) 30 mg SC DAILY@1000 [facility] Last Admin: 08/02/19 08:58 Dose: 30 mg Documented by: Gabapentin (Neurontin) 400 mg PO TIDCM [facility] Last Admin: 08/02/19 12:08 Dose: 400 mg Documented by: Hydrocortisone (Cortef) 10 mg PO BIDCM [facility] Last Admin: 08/02/19 12:08 Dose: 10 mg Documented by: Sodium Chloride () 1,000 mls @ 100 mls/hr IV .Q10H [facility] Last Admin: 08/02/19 06:35 Dose: 100 mls/hr Documented by: Pantoprazole Sodium (Protonix) 40 mg PO BID [facility] Last Admin: 08/02/19 08:58 Dose: 40 mg Documented by: Sodium Chloride () 10 - 40 ml IV UD PRN PRN Reason: SALINE FLUSH Last Admin: 08/01/19 20:27 Dose: 10 ml Documented by: Medical Necessity - Tobacco Use Smoking Status: Current every day smoker Tobacco Use: Cigarettes Assessment/Plan All Active Problems (Last Updated 07/14/19 @ 19:16 by Sandi Fitzgerald) Hypotension (Acute) Lactic acidosis (Acute) Acute kidney injury (Acute) Hypoxia (Acute) Acute kidney injury (Resolved) Coffee ground emesis (Resolved) Confusion (Resolved) Patient is a 68-year-old gentleman who presented to the emergency department with dizziness and lightheadedness. Patient was found to be orthostatic. Was also found to have acute kidney injury admitted to monitored bed for further management. 1. Presyncope secondary to orthostatic hypotension most probably secondary to dehydration/adrenal insufficiency; unclear acute versus chronic. Admitted to monitored bed patient rehydrated with IV fluids. As part of management and recurrent orthostatic hypotension cortisol assay was sent. Cosyntropin test shows baseline cortisol level 1.9 prior to ACTH administration and then 1 hour 16.3 which is less than 18 mcg/dL increase. There was no ACTH draw prior to cosyntropin administration. ACTH level ordered. Started on hydrocortisone 10 mg twice daily and adjust as per blood pressure, electrolytes. Patient may be discharged tomorrow on hydrocortisone with follow-up with master fire control technician in 2 weeks. 2. Acute kidney injury ~suspected to be secondary to dehydration managed with IV fluids kidney function improving. Creatinine improved from 2.5-1.34. Not seen by firestop/containment worker yet. - 08/01/2019 consult placed to patient's firestop/containment worker Dr. Gomez again per request from patient's 3. Lactic acidosis Patient did not have any evidence of infection it was felt patient lactic acidosis was from his hypotension 4. Dyslipidemia patient is on statin therapy, continued at home dose 5. COPD Not seen exacerbation did continue patient breathing treatment 6. History of bladder cancer Currently in remission 7. Peripheral arterial disease patient is on cilostazol and Plavix in addition to statin therapy 8. DVT prophylaxis on enoxaparin Microbiology Past 72 Hours 07/30/19 16:10 Blood Culture (Wb) - Right Hand Blood Culture - Preliminary No growth in 48 hours. 07/30/19 16:40 Blood Culture (Wb) - Anticubital Left Blood Culture - Preliminary No growth in 48 hours. Laboratory Results 07/31/19 05:15: Cortisol 1.60 L 08/02/19 06:30: Cortisol 1.90 L 08/02/19 06:30: ACTH Pending 08/02/19 07:05: Cortisol 11.40 08/02/19 07:36: Cortisol 16.30 Code Visit Inpatient E&M: 78624 Subs Hosp L2
[2019-08-02] MEDS: Acetaminophen 500 MG Tablet PO (21:46)
[2019-08-02] MEDS: Atorvastatin Calcium 10 MG Tablet PO (21:47)
[2019-08-02] MEDS: Amitriptyline 100 MG Tablet PO (21:47)
[2019-08-03] VITALS (8 sets, daily range): BP systolic 126–183; BP diastolic 65–88; PULSE 71–90; RESP 16–18; TEMP 36.4; O2SAT 94–100
[2019-08-03] MEDS: 0.45% Normal Saline 1,000 ML 100 ML IV (03:13)
[2019-08-03 05:30] LABS: Anion Gap 5 (5-15); BUN 20 mg/dL (7-18); BUN/Creat Ratio 15.2 RATIO (10-20); Calcium,Total 8.9 mg/dL (8.5-10.1); Chloride 112 mmol/L (98-107); Creatinine, Serum 1.32 mg/dL (0.70-1.30); EST Glomerular Filtration Rate 57 mL/min (>60); Est Glom Filt Rate - Afr Amer 69 mL/min (>60); Estimated Creatinine Clearance 56.25 ml/min; Glucose 97 mg/dL (74-106); Potassium 4.1 mmol/L (3.5-5.1); Sodium Level 142 mmol/L (136-145)
[2019-08-03] MEDS: Cilostazol 50 MG Tablet 100 MG PO (06:30)
[2019-08-03] MEDS: Ipratropium/Albuterol Sulfate 3 ML AMPUL.NEB INHALATION ×2 (06:57→13:00)
--- NOTE | 2019-08-03 07:45 | PN_ITS ---
Patient Problems: Active and Suspected Problems (Last Updated 07/14/19 @ 19:16 by Sandi Fitzgerald) Hypotension (Acute) Lactic acidosis (Acute) Acute kidney injury (Acute) Hypoxia (Acute) Vitals/I&O's: Vital Signs Temp Pulse Resp BP Pulse Ox 97.5 F L 81 16 149/85 H 94 08/03/19 03:14 08/03/19 06:57 08/03/19 06:57 08/03/19 03:17 08/03/19 06:57 Oxygen Flow Rate (L/min) 2 Oxygen Delivery Method Room Air Weight: 82.6 kg Body Mass Index (BMI) 25.4 Finger Stick Blood Glucose 134 Orthostatic Vital Signs Start: 07/31/19 06:46 Freq: q24h Status: Active Protocol: Activity Type Activity Date Activity User E-Sign Co-Sign Detail Recorded Client Recorded Date Recorded By Document 08/03/19 03:17 [id number] 08/03/19 03:20 [id number] 08/03/19 03:17 Orthostatic Vitals Standing -Blood Pressure (90/60-120/80) 139/76 H -Extremity Use Left Arm -Pulse Rate (60-100) 83 Sitting -Blood Pressure (90/60-120/80) 137/75 H -Extremity Use Left Arm -Pulse Rate (60-100) 71 Lying -Blood Pressure (90/60-120/80) 149/85 H -Extremity Use Left Arm -Pulse Rate (60-100) 77 Intake and Output for Last 24 Hours 08/01/19 08/02/19 08/03/19 23:59 23:59 23:59 Intake Total 4630 / 4990 3251 / 3251 1120 / 1120 Output Total 5175 / 5175 Balance -545 / -185 3251 / 3251 1120 / 1120 Microbiology Past 72 Hours 07/30/19 16:10 Blood Culture (Wb) - Right Hand Blood Culture - Preliminary No growth in 48 hours. 07/30/19 16:40 Blood Culture (Wb) - Anticubital Left Blood Culture - Preliminary No growth in 48 hours. Laboratory Results 07/31/19 05:15: Cortisol 1.60 L 08/02/19 06:30: Cortisol 1.90 L 08/02/19 06:30: ACTH Pending 08/02/19 07:05: Cortisol 11.40 08/02/19 07:36: Cortisol 16.30 08/03/19 05:06: Sodium 142, Potassium 4.1, Chloride 112 H, Carbon Dioxide 25.0, Anion Gap 5, BUN 20 H, Creatinine 1.32 H, Estim Creat Clear Calc 56.25, Est GFR (MDRD) Af Amer 69, Est GFR (MDRD) Non-Af 57 L, BUN/Creatinine Ratio 15.2, Glucose 97, Calcium 8.9, Magnesium 2.0 Current Medications Acetaminophen (Tylenol) 500 mg PO QHS [facility] Last Admin: 08/02/19 21:46 Dose: 500 mg Documented by: Albuterol/Ipratropium (Duoneb) 3 ml INHALATION Q6HWA.RT [facility] Last Admin: 08/03/19 06:57 Dose: 3 ml Documented by: Amitriptyline HCl (Elavil) 100 mg PO QHS [facility] Last Admin: 08/02/19 21:47 Dose: 100 mg Documented by: Atorvastatin Calcium (Lipitor) 10 mg PO QHS [facility] Last Admin: 08/02/19 21:47 Dose: 10 mg Documented by: Cilostazol (Pletal) 100 mg PO BIDAC [facility] Last Admin: 08/03/19 06:30 Dose: 100 mg Documented by: Clopidogrel Bisulfate (Plavix) 75 mg PO DAILY [facility] Last Admin: 08/02/19 08:58 Dose: 75 mg Documented by: Enoxaparin Sodium (Lovenox) 30 mg SC DAILY@1000 [facility] Last Admin: 08/02/19 08:58 Dose: 30 mg Documented by: Gabapentin (Neurontin) 400 mg PO TIDCM [facility] Last Admin: 08/02/19 17:05 Dose: 400 mg Documented by: Hydrocortisone (Cortef) 10 mg PO BIDCM [facility] Last Admin: 08/02/19 17:05 Dose: 10 mg Documented by: Sodium Chloride () 1,000 mls @ 100 mls/hr IV .Q10H [facility] Last Admin: 08/03/19 03:13 Dose: 100 mls/hr Documented by: Pantoprazole Sodium (Protonix) 40 mg PO BID [facility] Last Admin: 08/02/19 21:46 Dose: 40 mg Documented by: Sodium Chloride () 10 - 40 ml IV UD PRN PRN Reason: SALINE FLUSH Last Admin: 08/01/19 20:27 Dose: 10 ml Documented by: Medical Necessity - Tobacco Use Smoking Status: Current every day smoker Tobacco Use: Cigarettes Assessment/Plan All Active Problems (Last Updated 07/14/19 @ 19:16 by Sandi Fitzgerald) Hypotension (Acute) Lactic acidosis (Acute) Acute kidney injury (Acute) Hypoxia (Acute) Acute kidney injury (Resolved) Coffee ground emesis (Resolved) Confusion (Resolved)
[2019-08-03] MEDS: Clopidogrel Bisulfate 75 MG Tablet PO (08:11)
[2019-08-03] MEDS: Hydrocortisone 10 MG Tablet PO (08:11)
[2019-08-03] MEDS: Pantoprazole Sodium 40 MG Tablet PO (08:11)
[2019-08-03] MEDS: Gabapentin 400 MG Capsule PO ×2 (08:11→12:58)
[2019-08-03] MEDS: Enoxaparin 30 MG/0.3 ML Syringe SC (08:12)
--- NOTE | 2019-08-03 08:14 | NURSING ---
am meds given at this time per pt request as he does at home
--- NOTE | 2019-08-03 09:35 | CON.PCM_ITS ---
Consultation - Renal 08/03/19 PCP/ Referring MD: Requesting physician: [] Primary care physician: Lizabeth Ruiz MD Reason for Consultation:: ANTHONY - History of Present Illness History of Present Illness: The patient is a 68 year old M admitted through the ED on 07/30/2019 with complaint of severe lightheadedness, dizziness and weakness. He checked his blood pressure at home and systolic BP was in the 50s. He denied syncope but admits to near syncope. He had a creatinine of 2.5 on admission improved to 1.3 with iv hydration. His baseline creatinine was 1.0 in May 2019. He had orthostatic hypotension. Primary service ordered cortisol stim test that returned abnormal. He was started on cortisol for what appears to be adrenal insufficiency. He has not had any further near syncopal episodes but has not been as active in the hospital to trigger it. His blood pressure medications were stopped a few months ago after he came with a similar presentation. However while ago he was started on amlodipine 5 mg daily again. He has a history of hypotension in the past with ANTHONY resolved with iv fluids and discontinuation of NSAIDs. He had epidural injections for back pain and leg pain in the past. He had laparoscopic hernia repair. Appetite has been good. Denied nausea, vomiting, or dysphagia. CTA was negative for PE and chest x-ray showed degenerative changes and no acute cardia pulmonary process. He came in with leukocytosis and work up for sepsis unremarkable with negative blood cx. - Allergies Allergies: Allergies morphine Allergy (Verified 07/30/19 18:36) HALLUCINATIONS - Current Medications Current Medications: Current Medications Acetaminophen (Tylenol) 500 mg PO QHS [facility] Last Admin: 08/02/19 21:46 Dose: 500 mg Documented by: Albuterol/Ipratropium (Duoneb) 3 ml INHALATION Q6HWA.RT [facility] Last Admin: 08/03/19 06:57 Dose: 3 ml Documented by: Amitriptyline HCl (Elavil) 100 mg PO QHS [facility] Last Admin: 08/02/19 21:47 Dose: 100 mg Documented by: Atorvastatin Calcium (Lipitor) 10 mg PO QHS [facility] Last Admin: 08/02/19 21:47 Dose: 10 mg Documented by: Cilostazol (Pletal) 100 mg PO BIDAC [facility] Last Admin: 08/03/19 06:30 Dose: 100 mg Documented by: Clopidogrel Bisulfate (Plavix) 75 mg PO DAILY [facility] Last Admin: 08/03/19 08:11 Dose: 75 mg Documented by: Enoxaparin Sodium (Lovenox) 30 mg SC DAILY@1000 [facility] Last Admin: 08/03/19 08:12 Dose: 30 mg Documented by: Gabapentin (Neurontin) 400 mg PO TIDCM [facility] Last Admin: 08/03/19 08:11 Dose: 400 mg Documented by: Hydrocortisone (Cortef) 10 mg PO BIDCM [facility] Last Admin: 08/03/19 08:11 Dose: 10 mg Documented by: Sodium Chloride () 1,000 mls @ 100 mls/hr IV .Q10H [facility] Last Admin: 08/03/19 03:13 Dose: 100 mls/hr Documented by: Pantoprazole Sodium (Protonix) 40 mg PO BID [facility] Last Admin: 08/03/19 08:11 Dose: 40 mg Documented by: Sodium Chloride () 10 - 40 ml IV UD PRN PRN Reason: SALINE FLUSH Last Admin: 08/01/19 20:27 Dose: 10 ml Documented by: - Past Medical History Past Medical History (Chronic Problems): Chronic Problems (Last Updated 07/14/19 @ 19:16 by Sandi Fitzgerald) Essential (primary) hypertension (Chronic) Near syncope (Chronic) Orthostatic hypotension (Chronic) HLD (hyperlipidemia) (Chronic) PAD (peripheral artery disease) (Chronic) TIA (transient ischemic attack) (Chronic) - Past Surgical History Surgical History: - - Hand surgery for trigger finger. Surgery on her wrist at x2. 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 Len was placed in left femur. Carotid endarterectomy. Bladder surgery for cancer. - Social History Smoking Status: Current every day smoker Alcohol: None Drugs: None - Family History Maternal Family History: Family History (Last Reviewed 05/17/19 @ 09:06 by Amy Jimenez PA-C) Father Lung cancer Brother Throat cancer Brother Stomach cancer Mother Heart problem History Items: Heart Disease Paternal Family History: Family History (Last Reviewed 05/17/19 @ 09:06 by Amy Jimenez PA-C) Father Lung cancer Brother Throat cancer Brother Stomach cancer Mother Heart problem History Items: Cancer - lung Sibling Family History: Family History (Last Reviewed 05/17/19 @ 09:06 by Amy Jimenez PA-C) Father Lung cancer Brother Throat cancer Brother Stomach cancer Mother Heart problem History Items: Cancer - throat and stomach Review of Systems Constitutional: Reports: Weakness, Fatigue. Denies: Anorexia, Chills, Fever, Malaise HEENT: Denies: Head Aches Cardiovascular: Reports: - - near syncope. Denies: Chest Pain, Edema, Palp itations, Syncope Respiratory: Denies: Cough, Shortness of breath upon exertion Gastrointestinal: Denies: Abdominal Pain, Diarrhea, Nausea, Vomiting Genitourinary: Denies: Dysuria Musculoskeletal: Reports: Back Pain Neurological: Reports: - - leg pain, - - near syncope Psychiatric: Denies: Anxiety, Depression Hematologic/ Lymphatic: Denies: Anemia Patient Problems: Active and Suspected Problems (Last Updated 07/14/19 @ 19:16 by Sandi Fitzgerald) Hypotension (Acute) Lactic acidosis (Acute) Acute kidney injury (Acute) Hypoxia (Acute) - Physical Exam General: Alert, Oriented x3, Cooperative, No apparent distress Lungs: Clear to auscultation Cardiovascular: Regular rate Abdomen: Bowel Sounds Present, Soft, Non Tender, Non-Distended Extremities: No edema Neurological: Cranial nerves II-XII grossly intact Psych/Mental Status: Normal Affect, Appropriate, Alert and oriented to time, place, person, mood and affect Vital Signs Temp Pulse Resp BP Pulse Ox 97.5 F L 81 16 149/85 H 94 08/03/19 03:14 08/03/19 06:57 08/03/19 06:57 08/03/19 03:17 08/03/19 06:57 Oxygen Flow Rate (L/min) 2 Oxygen Delivery Method Room Air Weight: 82.6 kg Body Mass Index (BMI) 25.4 Finger Stick Blood Glucose 134 Orthostatic Vital Signs Start: 07/31/19 06:46 Freq: q24h Status: Active Protocol: Activity Type Activity Date Activity User E-Sign Co-Sign Detail Recorded Client Recorded Date Recorded By Document 08/03/19 03:17 [email or web address] [id number] 08/03/19 03:20 JM8 08/03/19 03:17 Orthostatic Vitals Standing -Blood Pressure (90/60-120/80) 139/76 H -Extremity Use Left Arm -Pulse Rate (60-100) 83 Sitting -Blood Pressure (90/60-120/80) 137/75 H -Extremity Use Left Arm -Pulse Rate (60-100) 71 Lying -Blood Pressure (90/60-120/80) 149/85 H -Extremity Use Left Arm -Pulse Rate (60-100) 77 Intake and Output for Last 24 Hours 08/01/19 08/02/19 08/03/19 23:59 23:59 23:59 Intake Total 4630 / 4990 3251 / 3251 1120 / 1120 Output Total 5175 / 5175 Balance -545 / -185 3251 / 3251 1120 / 1120 Microbiology Past 72 Hours 07/30/19 16:10 Blood Culture - Preliminary Blood Culture (Wb) - Right Hand No growth in 48 hours. 07/30/19 16:40 Blood Culture - Preliminary Blood Culture (Wb) - Anticubital Left No growth in 48 hours. Laboratory Tests Past 24 Hrs 08/02/19 08/03/19 06:30 05:06 Sodium 142 Potassium 4.1 Chloride 112 H Carbon Dioxide 25.0 Anion Gap 5 BUN 20 H Creatinine 1.32 H Estim Creat Clear Calc 56.25 Est GFR (MDRD) Af Amer 69 Est GFR (MDRD) Non-Af 57 L BUN/Creatinine Ratio 15.2 Glucose 97 Calcium 8.9 Magnesium 2.0 ACTH Pending Assessment/Plan All Active Problems (Last Updated 07/14/19 @ 19:16 by Sandi Fitzgerald) Hypotension (Acute) Lactic acidosis (Acute) Acute kidney injury (Acute) Hypoxia (Acute) Acute kidney injury (Resolved) Coffee ground emesis (Resolved) Confusion (Resolved) 1. Anthony likely due to hypotension, dehydraton. Creatinine improved to 1.3 from 2.5 on admit. Baseline creatinine 1.0 in 2018. Continue to encourage fluids. Recent hiatal hernia repair. 2. Orthostatic hypotension suspect from adrenal insuff. BP improved on cortisol 3. Adrenal insuff continue cortisol. ACTH pending 4. Follow up with me in 1-2 wks.
--- NOTE | 2019-08-03 11:24 | PCM.DC ---
- Discharge Diagnoses Current Active Problems: Current Active and Chronic Problems (Last Updated 07/14/19 @ 19:16 by Sandi Fitzgerald) Hypotension (Acute) Lactic acidosis (Acute) Acute kidney injury (Acute) Hypoxia (Acute) You will use the following diet at home:: Cardiac Discharge Activity: Return to Normal Activity Call your doctor if you observe: Shortness of breath, Dizziness, Fainting spells, Chest pain Allergies/Adverse Reactions: Allergies morphine Allergy (Verified 07/30/19 18:36) HALLUCINATIONS Medications to take at Discharge Atorvastatin Calcium [Lipitor] 10 mg PO QHS 10/14/18 Gabapentin [Neurontin] 400 mg PO TIDCM 10/14/18 Amitriptyline HCl [Elavil] 100 mg PO QHS 01/30/19 Cilostazol 100 mg PO BID 05/18/19 Clopidogrel Bisulfate [Plavix] 75 mg PO DAILY 05/18/19 Pantoprazole Sodium [Protonix] 40 mg PO BID #60 tab 05/18/19 Acetaminophen [Tylenol Extra Strength] 500 mg PO QHS 07/30/19 Ipratropium/Albuterol Respimat [Combivent Respimat Inhal [place]] 1 puff INHALATION DAILY 07/30/19 Lisinopril 5 mg PO DAILY 07/30/19 Omeprazole 20 mg PO BID 07/30/19 Hydrocortisone [Cortef] 10 mg PO BIDCM #60 tab 08/03/19 The following prescriptions were given: Hydrocortisone [Cortef] 10 mg PO BIDCM #60 tab Transmission Status: Pending to [facility] Primary Care Physician: Lizabeth Ruiz MD [Primary Care Provider] - Please follow up with your Primary Care Physician in: 1 Week Test Results: Test results from this visit will be discussed in further detail at your follow-up appointment, if applicable. Please Follow Up With: Sheryl Gomez DO When: 1-2 Weeks Please Follow Up With: Dario Greenfield MD - Endocrinology When: 1-2 Weeks Proposed Discharge Date: 08/03/19
--- NOTE | 2019-08-03 11:28 | PCM.DC.SUM ---
<Pia Wen - Last Filed: 08/03/19 11:44> Discharge Date and Diagnosis Date of Admission: 07/30/19 Date of Discharge: 08/03/19 - Primary Discharge Diagnosis Active and Suspected Problems (Last Updated 07/14/19 @ 19:16 by Sandi Fitzgerald) 1. Orthostatic hypotension secondary to adrenal insufficiency 2. Acute kidney injury on chronic kidney disease stage III 3. Lactic acidosis-infectious etiology ruled out. 4. Hypertension 5. Hyperlipidemia 6. GERD 7. History of TIA 8. PAD 9. Chronic COPD 10. History of bladder cancer - Secondary Discharge Diagnosis Chronic Problems (Last Updated 07/14/19 @ 19:16 by Sandi Fitzgerald) Essential (primary) hypertension (Chronic) Near syncope (Chronic) Orthostatic hypotension (Chronic) HLD (hyperlipidemia) (Chronic) PAD (peripheral artery disease) (Chronic) TIA (transient ischemic attack) (Chronic) Hospital Course and Treatment Imaging Results: Diagnostic Data Chest X-Ray 07/30/19 14:47 IMPRESSION: Degenerative changes, as described above. No demonstrated acute cardiopulmonary process. Electronically Signed: Janes Tatum MD at 15:11 EDT , Service support , Chest CTA 07/30/19 14:58 IMPRESSION: No demonstrated PE, thoracic aortic aneurysm or dissection Hyperexpanded lungs with emphysematous blebs in apices, and chronic interstitial fibrotic changes in both lung mackey with dependent atelectasis and pleural thickening. No organized infiltrate or effusion Calcified coronary vessels Degenerative bony changes Left renal cyst Electronically Signed: Janes Tatum MD at 15:45 EDT , Service support , Dr. Gomez- Nephrology Operations: None Procedures: None Summary of Care Provided: The patient is a 68 year old M admitted 07/30/2019 due to lightheadedness, dizziness. 1. Orthostatic hypotension secondary to adrenal insufficiency-orthostatic hypotension resolved with initiation of hydrocortisone. Continue follow-up with endocrinology in 1 to 2 weeks. 2. Acute kidney injury on chronic kidney disease stage III-improved, outpatient follow-up with nephrology. DAWN suspected secondary to dehydration. Hold lisinopril regimen until further follow-up with nephrology. 3. Lactic acidosis-infectious etiology ruled out. Resolved. 4. Hypertension-stable, lisinopril regimen on hold due to DAWN. Hold until further follow-up with nephrology. 5. Hyperlipidemia-continue statin. 6. GERD-continue PPI. 7. History of TIA-continue aspirin, Plavix, statin. 8. PAD-continue cilostazol, Plavix and statin. 9. Chronic COPD-no acute exacerbation. 10. History of bladder cancer Patient seen and examined prior to discharge. Physical assessment as noted below. Patient is stable for discharge with follow up recommendations as noted above. This patient was seen by BRYANT Dahl under the supervision of Dr. Del Rio. - Physical Exam General: Alert, Oriented x3, Cooperative HEENT: Atraumatic, PERRLA, EOMI, Normocephalic Neck: Supple, No JVD, Negative Carotid Bruits Lungs: Clear to auscultation, Normal air movement Cardiovascular: Regular rate, Regular Rhythm, Normal S1, Normal S2, No murmurs Abdomen: Bowel Sounds Present, Soft, Non Tender, Non-Distended Extremities: No clubbing, No cyanosis, No edema, Capillary Refill Less than 3 Seconds Skin: No rashes, No breakdown Musculoskeletal: No Tenderness to Palpation of Joints or Extremities Neurological: Cranial nerves II-XII grossly intact, Neuro grossly intact Psych/Mental Status: Normal Affect, Appropriate Vital Signs Temp Pulse Resp BP Pulse Ox 97.5 F L 76 16 145/82 H 96 08/03/19 08:00 08/03/19 08:00 08/03/19 08:00 08/03/19 08:00 08/03/19 08:00 Oxygen Flow Rate (L/min) 2 Oxygen Delivery Method Room Air Weight: 182 lb 1.629 oz Body Mass Index (BMI) 25.4 Finger Stick Blood Glucose 134 Orthostatic Vital Signs Start: 07/31/19 06:46 Freq: q24h Status: Active Protocol: Activity Type Activity Date Activity User E-Sign Co-Sign Detail Recorded Client Recorded Date Recorded By Document 08/03/19 03:17 [email or web address] [id number] 08/03/19 03:20 JM8 08/03/19 03:17 Orthostatic Vitals Standing -Blood Pressure (90/60-120/80) 139/76 H -Extremity Use Left Arm -Pulse Rate (60-100) 83 Sitting -Blood Pressure (90/60-120/80) 137/75 H -Extremity Use Left Arm -Pulse Rate (60-100) 71 Lying -Blood Pressure (90/60-120/80) 149/85 H -Extremity Use Left Arm -Pulse Rate (60-100) 77 Intake and Output for Last 24 Hours 08/01/19 08/02/19 08/03/19 23:59 23:59 23:59 Intake Total 4630 / 4990 3251 / 3251 1120 / 1120 Output Total 5175 / 5175 Balance -545 / -185 3251 / 3251 1120 / 1120 Microbiology Past 72 Hours 07/30/19 16:10 Blood Culture - Preliminary Blood Culture (Wb) - Right Hand No growth in 48 hours. 07/30/19 16:40 Blood Culture - Preliminary Blood Culture (Wb) - Anticubital Left No growth in 48 hours. Laboratory Tests Past 24 Hrs 08/03/19 05:06 Sodium 142 Potassium 4.1 Chloride 112 H Carbon Dioxide 25.0 Anion Gap 5 BUN 20 H Creatinine 1.32 H Estim Creat Clear Calc 56.25 Est GFR (MDRD) Af Amer 69 Est GFR (MDRD) Non-Af 57 L BUN/Creatinine Ratio 15.2 Glucose 97 Calcium 8.9 Magnesium 2.0 Discharge Diet: Low fat/ Low Cholesterol Discharge Activity: Return to Normal Activity Call your doctor if you observe: Shortness of breath, Dizziness, Fainting spells, Chest pain Home Medications: Medications to take at Discharge Atorvastatin Calcium [Lipitor] 10 mg PO QHS 10/14/18 Gabapentin [Neurontin] 400 mg PO TIDCM 10/14/18 Amitriptyline HCl [Elavil] 100 mg PO QHS 01/30/19 Cilostazol 100 mg PO BID 05/18/19 Clopidogrel Bisulfate [Plavix] 75 mg PO DAILY 05/18/19 Pantoprazole Sodium [Protonix] 40 mg PO BID #60 tab 05/18/19 Acetaminophen [Tylenol Extra Strength] 500 mg PO QHS 07/30/19 Ipratropium/Albuterol Respimat [Combivent Respimat Inhal [place]] 1 puff INHALATION DAILY 07/30/19 Lisinopril 5 mg PO DAILY 07/30/19 Omeprazole 20 mg PO BID 07/30/19 Hydrocortisone [Cortef] 10 mg PO BIDCM #60 tab 08/03/19 Following Prescrptions Were Given to Patient: Hydrocortisone [Cortef] 10 mg PO BIDCM #60 tab Transmission Status: Received by [facility] Primary Care Physician: Lizabeth Ruiz MD [Primary Care Provider] - Please follow up with your Primary Care Physician in: 1 Week Please Follow Up With: Sheryl Gomez DO When: 1-2 Weeks Disposition: Home Minutes spent on discharge:: 35 Patient Condition:: Stable Medical Necessity - Tobacco Use Smoking Status: Current every day smoker Tobacco Use: Cigarettes Meaningful Use Info Meaningful Use Diagnoses (Choose all that apply): None applicable <Taisha Del Rio - Last Filed: 08/03/19 14:13> Discharge Date and Diagnosis - Secondary Discharge Diagnosis Chronic Problems (Last Updated 07/14/19 @ 19:16 by Sandi Fitzgerald) Essential (primary) hypertension (Chronic) Near syncope (Chronic) Orthostatic hypotension (Chronic) HLD (hyperlipidemia) (Chronic) PAD (peripheral artery disease) (Chronic) TIA (transient ischemic attack) (Chronic) Hospital Course and Treatment Summary of Care Provided: This patient was seen in conjunction with Pia Wen NP. I have independently interviewed and examined the patient and reviewed pertinent historical, laboratory, and other data. Please refer to her note for patient's presentation, findings, and recommendations. 68-year-old male with past medical history of hypertension, recurrent orthostatic hypotension, who presented with lightheadedness and dizziness. Patient had reported to his blood pressure was in the systolic 50s. He was recently taken off his blood pressure meds prior to his admission. Patient was found to have blood pressure of 83/60 which improved with IV fluids. Work-up done in the hospital revealed adrenal insufficiency for which patient was started on hydrocortisone with improvement in his blood pressure. Patient also had elevated lactic acid and acute kidney injury on CKD stage 3 which was felt to be secondary to his hypotension. He will follow-up with endocrinology for evaluation of his adrenal insufficiency and hydrocortisone dose. The day of discharge, patient was seen and examined. He denied any new complaints. Orthostatic vitals were negative. Physical Exam: Gen: Comfortable, not pale, not jaundiced, alert oriented x3 CVS:HS I +II, regular, no murmurs RESP:CTA GI: BS present and normal, nontender, no palpable organs EXT:No edema - Physical Exam Vital Signs Temp Pulse Resp BP Pulse Ox 97.5 F L 84 16 180/77 H 100 08/03/19 13:00 08/03/19 13:00 08/03/19 13:00 08/03/19 13:00 08/03/19 13:00 Oxygen Flow Rate (L/min) 2 Oxygen Delivery Method Room Air Weight: 82.6 kg Body Mass Index (BMI) 25.4 Finger Stick Blood Glucose 134 Orthostatic Vital Signs Start: 07/31/19 06:46 Freq: q24h Status: Active Protocol: Activity Type Activity Date Activity User E-Sign Co-Sign Detail Recorded Client Recorded Date Recorded By Document 08/03/19 03:17 [id number] 08/03/19 03:20 JM8 08/03/19 03:17 Orthostatic Vitals Standing -Blood Pressure (90/60-120/80 mm Hg) 139/76 H -Extremity Use Left Arm -Pulse Rate (60-100 beats/min) 83 Sitting -Blood Pressure (90/60-120/80 mm Hg) 137/75 H -Extremity Use Left Arm -Pulse Rate (60-100 beats/min) 71 Lying -Blood Pressure (90/60-120/80 mm Hg) 149/85 H -Extremity Use Left Arm -Pulse Rate (60-100 beats/min) 77 Intake and Output for Last 24 Hours 08/01/19 08/02/19 08/03/19 23:59 23:59 23:59 Intake Total 4630 / 4990 3251 / 3251 2072.33 / 2072.33 Output Total 5175 / 5175 Balance -545 / -185 3251 / 3251 2072.33 / 2072.33 Microbiology Past 72 Hours 07/30/19 16:10 Blood Culture - Preliminary Blood Culture (Wb) - Right Hand No growth in 48 hours. 07/30/19 16:40 Blood Culture - Preliminary Blood Culture (Wb) - Anticubital Left No growth in 48 hours. Laboratory Tests Past 24 Hrs 08/03/19 05:06 Sodium 142 Potassium 4.1 Chloride 112 H Carbon Dioxide 25.0 Anion Gap 5 BUN 20 H Creatinine 1.32 H Estim Creat Clear Calc 56.25 Est GFR (MDRD) Af Amer 69 Est GFR (MDRD) Non-Af 57 L BUN/Creatinine Ratio 15.2 Glucose 97 Calcium 8.9 Magnesium 2.0 Code Visit Inpatient E&M: 66777 Disch Hosp
[2019-08-03] MEDS: amLODIPine 10 MG Tablet PO (13:44)
[2019-08-04 12:55] LABS: Adrenocorticotropic Hormone 6.6 pg/mL (7.2-63.3)
--- NOTE | 2019-08-04 16:14 | CASEMGMT ---
DAVEY AMARAL Discharge Follow-Up Phone Call. Mala: 14 Strata: 4 Discharge Date: 08/03/2019 Adm Dx: Hypotension Call to pt to inquire about how he has been doing since being discharged from the hospital. Pt states, I've been good. Pt states he is aware that he is not to take the lisinopril until seen by Nephrology. He states he was able to get the prescription from [email or web address] and denies having any questions about the medications. He states they did talk with Dr Gomez's office today and have made an appt with her for 08/10. He is also aware of the appt with Dr Ruiz on 08/06. Pt's got on the phone after DAVEY AMARAL talked to pt and stated they have not heard back from Dr Amato's office to get an appt scheduled yet and she states she also called their office to schedule an appt but was not able to reach anyone. She stated she is concerned that pt will not get an appt with Dr Amato early enough to discuss his kidney issues and she is concerned pt will end up coming back to the hospital. DAVEY AMARAL advised to contact Dr Amato's office in the next couple of days if she has not heard back from them. She was also advised to discuss medication and kidney function concerns with both Dr Ruiz and Dr Gomez. DAVEY AMARAL also advised her to let them know if she is unsuccessful with getting an appt with Dr Amato in the next 1-2 weeks to see if they can assist her with scheduling this appt. voiced appreciation for the advise and information. asked DAVEY AMARAL what medication it is that pt is supposed to be holding until seen by nephrology and DAVEY AMARAL made her aware it is the Lisinopril. states she has already removed this medication from pt's meds so that he does not take them. and pt both deny having any further questions or concerns w/discharge instructions. DAVEY AMARAL thanked them for choosing [facility]. Lizette WINCHESTER RN, CM
== END 2019-08-03 15:14 | disposition home or self-care (01) | DRG 644 ==
LOC: ED 15:04 → PCU 18:04
PROVIDERS: Family Medicine; Internal Medicine; Admitting Provider Student in an Organized Health Care Education/Training Program; Emergency Provider Emergency Medicine; Family Provider Family Medicine; PCP Family Medicine; Visit Provider Internal Medicine
DX: E27.40 Unspecified adrenocortical insufficiency (principal); N17.9 Acute kidney failure, unspecified; E87.2 Acidosis; I95.1 Orthostatic hypotension; E78.5 Hyperlipidemia, unspecified; I73.9 Peripheral vascular disease, unspecified; E86.0 Dehydration; J44.9 Chronic obstructive pulmonary disease, unspecified; N18.3 Chronic kidney disease, stage 3 (moderate); I12.9 Hypertensive chronic kidney disease with stage 1 through stage 4 chronic kidney disease, or unspecified chronic kidney disease; F17.210 Nicotine dependence, cigarettes, uncomplicated; K21.9 Gastro-esophageal reflux disease without esophagitis; Z79.02 Long term (current) use of antithrombotics/antiplatelets; Z85.51 Personal history of malignant neoplasm of bladder; Z86.73 Personal history of transient ischemic attack (TIA), and cerebral infarction without residual deficits
CPT/HCPCS: 36415; 51702; 71045; 71275; 80048; 81001; 82024; 82533; 82803; 83605; 83735; 84443; 84484; 85025; 85027; 85610; 85730; 87040; 93005; 94640; 97161; 97165; 99285; J7030; Q9967; A4216; J0834; J3490

== ENCOUNTER → 2019-08-10 13:50 | Outpatient (CLI) | payer MEDICARE, OTHER, SELFPAY ==
[2019-07-30 18:35] VITALS: BMI 25.4
[2019-08-10 17:37] LABS: Albumin, Serum 3.6 g/dL (3.2-5.0); BUN 22 mg/dL (7-18); BUN/Creat Ratio 12.4 RATIO (10-20); Calcium,Total 9.5 mg/dL (8.5-10.1); Chloride 106 mmol/L (98-107); Creatinine, Serum 1.77 mg/dL (0.70-1.30); EST Glomerular Filtration Rate 41 mL/min (>60); Est Glom Filt Rate - Afr Amer 49 mL/min (>60); Glucose 88 mg/dL (74-106); Phosphorus 3.1 mg/dL (2.5-4.9); Potassium 4.8 mmol/L (3.5-5.1); Sodium Level 138 mmol/L (136-145)
[2019-08-16 17:33] LABS: Aldosterone, Serum 11.9 ng/dL (0.0-30.0)
== END ==
PROVIDERS: Family Provider Family Medicine; PCP Family Medicine; Visit Provider Internal Medicine Nephrology
DX: N18.3 Chronic kidney disease, stage 3 (moderate) (principal)
CPT/HCPCS: 36415; 80069; 82088

== ENCOUNTER → 2019-09-10 11:46 | Outpatient (CLI) | payer MEDICARE, OTHER, SELFPAY ==
[2019-07-30 18:35] VITALS: BMI 25.4
[2019-09-01 11:08] VITALS: BMI 25.5
[2019-09-10 13:07] LABS: Albumin, Serum 3.7 g/dL (3.2-5.0); BUN 18 mg/dL (7-18); BUN/Creat Ratio 11.3 RATIO (10-20); Calcium,Total 9.5 mg/dL (8.5-10.1); Chloride 108 mmol/L (98-107); Creatinine, Serum 1.59 mg/dL (0.70-1.30); EST Glomerular Filtration Rate 46 mL/min (>60); Est Glom Filt Rate - Afr Amer 56 mL/min (>60); Glucose 106 mg/dL (74-106); Potassium 4.3 mmol/L (3.5-5.1); Sodium Level 141 mmol/L (136-145)
[2019-09-10 13:16] LABS: PTHIN 113.4 pg/mL (18.4-80.1)
== END ==
PROVIDERS: Family Provider Family Medicine; PCP Family Medicine; Referring Provider Internal Medicine Nephrology; Visit Provider Internal Medicine Nephrology
DX: N17.9 Acute kidney failure, unspecified (principal); N18.3 Chronic kidney disease, stage 3 (moderate)
CPT/HCPCS: 36415; 80069; 83970

== ENCOUNTER → 2019-10-14 13:44 | Outpatient (CLI) | payer MEDICARE, OTHER, SELFPAY ==
[2019-09-01 11:08] VITALS: BMI 25.5
[2019-10-14 15:35] LABS: Anion Gap 5 (5-15); BUN 15 mg/dL (7-18); BUN/Creat Ratio 9.2 RATIO (10-20); Calcium,Total 9.5 mg/dL (8.5-10.1); Chloride 107 mmol/L (98-107); Creatinine, Serum 1.63 mg/dL (0.70-1.30); EST Glomerular Filtration Rate 45 mL/min (>60); Est Glom Filt Rate - Afr Amer 54 mL/min (>60); Glucose 98 mg/dL (74-106); Potassium 4.2 mmol/L (3.5-5.1); Sodium Level 141 mmol/L (136-145)
== END ==
PROVIDERS: Family Provider Family Medicine; PCP Family Medicine; Referring Provider Internal Medicine Endocrinology, Diabetes & Metabolism; Visit Provider Internal Medicine Endocrinology, Diabetes & Metabolism
DX: E27.49 Other adrenocortical insufficiency (principal)
CPT/HCPCS: 36415; 80048

== ENCOUNTER → 2020-03-31 10:47 | Outpatient (CLI) | payer MEDICARE, OTHER, SELFPAY ==
[2019-09-01 11:08] VITALS: BMI 25.5
--- NOTE | 2020-03-31 10:52 | ART_ITS ---
Reason For Study: Atherosclerosis Procedure A bilateral lower extremity continuous wave Doppler with analog waveform analysis and ankle brachial indexes. Left Segmental Pressures Left brachial= 142mmHg. Left posterior tibial artery = 102mmHg. Left dorsalis pedis artery = 94mmHg. Left digit = 82 mmHg. The left dorsalis pedis waveforms are biphasic. The left posterior tibial artery waveforms are biphasic. Right Segmental Pressures Right brachial= 137mmHg. Right posterior tibial artery = 112mmHg. Right dorsalis pedis artery = 101mmHg. Right digit = 88 mmHg. The right dorsalis pedis waveforms are biphasic. The right posterior tibial artery waveforms are biphasic. Indices The right ankle brachial index by the dorsalis pedis is 0.71. The right ankle brachial index by the posterior tibial artery is 0.79. The right digital-brachial index is 0.62. The left ankle brachial index by the dorsalis pedis is 0.66. The left ankle brachial index by the posterior tibial artery is 0.72. The left digital-brachial index is 0.58. Interpretation Summary Bilateral biphasic flow with SHASHANK 0.79 right and 0.72 left leg. DBI 0.62 and 0.58. Ordering Physician: Iban Olson Referring Physician: Karan Talbert Performed By: Yesenia Burns RVT
== END ==
PROVIDERS: PCP Family Medicine; Referring Provider Surgery Vascular Surgery; Visit Provider Surgery Vascular Surgery
DX: I70.213 Atherosclerosis of native arteries of extremities with intermittent claudication, bilateral legs (principal); F17.200 Nicotine dependence, unspecified, uncomplicated
CPT/HCPCS: 93922

== ENCOUNTER → 2020-04-06 10:50 | Outpatient (CLI) | payer MEDICARE, OTHER, SELFPAY ==
[2019-09-01 11:08] VITALS: BMI 25.5
[2020-04-06 13:08] LABS: Anion Gap 9 (5-15); BUN 19 mg/dL (7-18); Calcium,Total 9.6 mg/dL (8.5-10.1); Chloride 108 mmol/L (98-107); Cholesterol 220 mg/dL (200); Creatinine, Serum 1.72 mg/dL (0.70-1.30); EST Glomerular Filtration Rate 42 mL/min (>60); Est Glom Filt Rate - Afr Amer 51 mL/min (>60); Glucose 81 mg/dL (74-106); High Density Lipoprotein 48 mg/dL; PSA,Total - Annual Screen 0.83 ng/mL (0.00-4.00); Potassium 4.7 mmol/L (3.5-5.1); Sodium Level 142 mmol/L (136-145); Triglycerides 164 mg/dL; Very Low Density Lipoprotein 33 mg/dL (5-40)
== END ==
PROVIDERS: PCP Family Medicine; Referring Provider Family Medicine; Visit Provider Family Medicine
DX: Z00.00 Encounter for general adult medical examination without abnormal findings (principal); Z12.5 Encounter for screening for malignant neoplasm of prostate; N28.9 Disorder of kidney and ureter, unspecified; I10 Essential (primary) hypertension
CPT/HCPCS: 36415; 80048; 80061; 84153; G0103

== ENCOUNTER 2020-04-24 15:57 | Outpatient (RCR) | payer MEDICARE, OTHER, SELFPAY ==
[2019-09-01 11:08] VITALS: BMI 25.5
[2020-04-24 18:21] LABS: Anion Gap 8 (5-15); BUN 28 mg/dL (7-18); BUN/Creat Ratio 16.3 RATIO (10-20); Calcium,Total 9.5 mg/dL (8.5-10.1); Chloride 107 mmol/L (98-107); Creatinine, Serum 1.72 mg/dL (0.70-1.30); EST Glomerular Filtration Rate 42 mL/min (>60); Est Glom Filt Rate - Afr Amer 51 mL/min (>60); Glucose 90 mg/dL (74-106); Potassium 4.9 mmol/L (3.5-5.1); Sodium Level 140 mmol/L (136-145)
== END 2020-04-24 18:00 | disposition home or self-care (01) ==
LOC: LAB 15:57
PROVIDERS: Internal Medicine Nephrology; PCP Family Medicine; Referring Provider Internal Medicine Endocrinology, Diabetes & Metabolism; Visit Provider Internal Medicine Endocrinology, Diabetes & Metabolism
DX: I10 Essential (primary) hypertension (principal); E27.49 Other adrenocortical insufficiency; Z79.899 Other long term (current) drug therapy
CPT/HCPCS: 36415; 80048

== ENCOUNTER → 2020-05-02 12:56 | Outpatient (CLI) | payer MEDICARE, OTHER, SELFPAY ==
[2019-09-01 11:08] VITALS: BMI 25.5
--- NOTE | 2020-05-02 12:57 | CDU_ITS ---
Reason For Study: carotid stenosis Rt. Velocities/BP Lt. Velocities/BP Prox CCA 73.4/20.0 cm/sec. Prox CCA 77.7/13.9 cm/sec. Mid CCA 124.3/34.3 cm/sec. Mid CCA 200.4/33.6 cm/sec. Dist CCA 111.2/34.3 cm/sec. Dist CCA 121.1/15.2 cm/sec. Prox ICA 156.2/34.5 cm/sec. Prox ICA 135.7/24.3 cm/sec. Mid ICA 163.0/35.8 cm/sec. Mid ICA 195.0/37.0 cm/sec. Dist ICA 90.6/22.6 cm/sec. Dist ICA 112.0/17.0 cm/sec. Rt. ICA/CCA = 1.3. Lt. ICA/CCA = 1.0. Prox ECA 369.9/87.5 cm/sec. Prox ECA 164.9/22.5 cm/sec. Rt. Vert. 56.9/16.3 cm/sec. Right Extracranial There is heterogeneous, irregular atherosclerotic plaque noted in the right common carotid artery. There is heterogeneous, irregular atherosclerotic plaque noted in the right internal carotid artery. There is heterogeneous, irregular atherosclerotic plaque noted in the right external carotid artery. Antegrade flow is noted in the right vertebral artery. Left Extracranial There is heterogeneous, irregular atherosclerotic plaque noted in the left common carotid artery. There is heterogeneous, irregular atherosclerotic plaque noted in the left internal carotid artery. There is heterogeneous, irregular atherosclerotic plaque noted in the left external carotid artery. Flow could not be demonstrated in the left vertebral artery. Procedure Carotid Duplex 73007. Interpretation Summary Moderate (50-69%) stenosis right extracranial internal carotid. Moderate (50-69%) stenosis left extracranial internal carotid. Flow within the right verterbral artery is antegrade. Flow could not be demonstrated in the left vertebral artery. Ordering Physician: Birdie Matos Performed By: Horace Calderon RVT
== END ==
PROVIDERS: PCP Family Medicine; Referring Provider Physician Assistant Medical; Visit Provider Physician Assistant Medical
DX: I65.23 Occlusion and stenosis of bilateral carotid arteries (principal)
CPT/HCPCS: 93880

== ENCOUNTER → 2020-06-21 08:46 | Outpatient (CLI) | payer MEDICARE, OTHER, SELFPAY ==
[2019-09-01 11:08] VITALS: BMI 25.5
--- NOTE | 2020-06-21 08:49 | AAVD_ITS ---
Reason For Study: atherosclerosis Aorta Measurements Aorta Doppler Measurements Proximal aorta measures3.0 X 3.1cm. in cross- Peak systolic flow velocities within the proximal sectional axis. aorta measure 28 cm/sec. Proximal aorta measures3.1cm. in longitudinal Peak systolic flow velocities within the mid aorta axis. measure 31 cm/sec. Mid aorta measures3.0 X 3.0cm. in cross-sectional Peak systolic flow velocities within the distal axis. aorta measure 25 cm/sec. Mid aorta measures2.7cm. in longitudinal axis. Distal aorta measures2.9 X 3.4cm. in cross- sectional axis. Distal aorta measures2.9cm. in longitudinal axis. Left Iliac Artery Left iliac artery measures 1.3 X 1.3 cm. in the longitudinal axis. Left iliac artery measures 1.2 cm. in the cross-sectional axis. Peak systolic velocity in the left iliac artery measures 70 cm/sec. Right Iliac Artery Right iliac artery measures 2.0 X 1.9 cm. in the longitudinal axis. Right iliac artery measures 1.9 cm. in the cross-sectional axis. Peak systolic velocity in the right iliac artery measures 54 cm/sec. Procedure Aorta IVC Iliac vasculature or bypass grafts [id number]. Exam performed in department. Interpretation Summary Aortic aneurysm at 3.1cm. Ordering Physician: Iban Olson Referring Physician: MARK CHIRINOS Performed By: Shellie Perez, KUNCS, RVT
--- NOTE | 2020-06-21 08:49 | ART_ITS ---
Reason For Study: ATHEROSCLEROSIS Procedure A bilateral lower extremity continuous wave Doppler with analog waveform analysis and ankle brachial indexes. Left Segmental Pressures Left brachial= 177mmHg. Left posterior tibial artery = 126mmHg. Left dorsalis pedis artery = 124mmHg. The left dorsalis pedis waveforms are biphasic. The left posterior tibial artery waveforms are biphasic. Right Segmental Pressures Right brachial= 164mmHg. Right posterior tibial artery = 147mmHg. Right dorsalis pedis artery = 132mmHg. The right dorsalis pedis waveforms are biphasic. The right posterior tibial artery waveforms are biphasic. Indices The right ankle brachial index by the dorsalis pedis is .75. The right ankle brachial index by the posterior tibial artery is .83. The left ankle brachial index by the dorsalis pedis is .7. The left ankle brachial index by the posterior tibial artery is .7. Interpretation Summary Bilateral biphasic flow with SHASHANK 0.83 and 0.71. Ordering Physician: Iban Olson Referring Physician: MARK CHIRINOS Performed By: Ana RDCS, TALHA, Shellie and Student
== END ==
PROVIDERS: PCP Family Medicine; Referring Provider Surgery Vascular Surgery; Visit Provider Surgery Vascular Surgery
DX: I70.213 Atherosclerosis of native arteries of extremities with intermittent claudication, bilateral legs (principal); I65.23 Occlusion and stenosis of bilateral carotid arteries; F32.9 Major depressive disorder, single episode, unspecified; E78.00 Pure hypercholesterolemia, unspecified; I10 Essential (primary) hypertension; Z85.828 Personal history of other malignant neoplasm of skin; F17.200 Nicotine dependence, unspecified, uncomplicated
CPT/HCPCS: 93922; 93978

== ENCOUNTER 2020-07-07 17:38 | Emergency (ER) | payer MEDICARE, OTHER, SELFPAY ==
[2019-09-01 11:08] VITALS: BMI 25.5
[2020-07-07 17:40] VITALS: BP 106/39; PULSE 117; RESP 15; TEMP 36.9; O2SAT 97; BMI 26.4
--- NOTE | 2020-07-07 18:05 | RAD_ITS ---
STUDY: X-RAY CHEST REASON FOR EXAM: Male, 69 years old. shortness of breath, chills, headache TECHNIQUE: Single frontal view of the chest. COMPARISON: 07/30/2019 FINDINGS: The lungs are clear and expanded. There is no demonstrated pleural abnormality. Normal size heart. Normal mediastinum and debra. Normal visualized pulmonary arteries. Normal visualized aortic arch and descending thoracic aorta. Normal visualized thoracic spine. Normal visualized ribs, clavicles, and shoulders. There is no demonstrated abnormality of the visualized soft tissue structures of the upper abdomen. RAD/Chest 1 View (Portable) IMPRESSION: Normal x-ray examination of the chest. Electronically Signed: Andrew Kimbrough MD at 18:22 EDT Tel , Service support ,
--- NOTE | 2020-07-07 18:09 | ED.DCSUM_ITS ---
History of Present Illness Chief Complaint: General Illness Informant: Patient Onset: Today Context: Sudden Onset Timing: Continuous Current Severity: Moderate Maximum Severity: Moderate Narrative: The patient is a 69-year-old male with medical history significant for adrenal insufficiency, chronic kidney disease, and smoking that presents to the emergency department with malaise and chills. Patient had outpatient visit with his primary care today. He had vaccinations for shingles and influenza. He states he was feeling fine. About an hour and a half ago, he began to have chills and myalgias. He states he has not been sick otherwise. He denies weakness or lightheadedness. He states he just did not feel well and wanted to be evaluated. Up until today, he has been in his normal state of health and has been compliant with all of his medications. Prior similar symptoms: No Recent Illness/Hospitalization: No Past Medical History - Allergies and Home Meds Allergies/Adverse Reactions: Allergies morphine Allergy (Verified 07/07/20 17:39) HALLUCINATIONS vaccine adjuvant system, AS01B liposomal [From Shingrix (PF)] Adverse Reaction (Verified 07/07/20 20:05) Fever and skin rash varicella-zoster virus glycoprotein E, recombinant [From Shingrix (PF)] Adverse Reaction (Verified 07/07/20 20:05) Fever and skin rash Primary Care Physician: Karan Talbert MD [Primary Care Provider] - Prior records reviewed: Yes Past Medical History: - - Adrenal insufficiency Surgical History: - - Hand surgery for trigger finger. Surgery on her wrist at x2. 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 Len was placed in left femur. Carotid endarterectomy. Bladder surgery for cancer. Smoking Status: Current every day smoker - Family History Maternal Family History: Family History (Last Reviewed 09/01/19 @ 12:[address] Maximiliano Kunz MD) Father Lung cancer Brother Throat cancer Brother Stomach cancer Mother Heart problem Family History: Reports: Heart Disease Paternal Family History: Family History (Last Reviewed 09/01/19 @ 12:[address] Maximiliano Kunz MD) Father Lung cancer Brother Throat cancer Brother Stomach cancer Mother Heart problem Family History: Reports: Cancer - lung Sibling Family History: Family History (Last Reviewed 09/01/19 @ 12:[address] Maximiliano Kunz MD) Father Lung cancer Brother Throat cancer Brother Stomach cancer Mother Heart problem Family History: Reports: Cancer - throat and stomach Review of Systems General: Reports: Chills, Malaise. Denies: Fever, Sweats Eyes: Denies: Visual changes - bilaterally, Diplopia ENT: Denies: Rhinorrhea, Sore throat Cardiovascular: Denies: Chest pain, Palpitations Respiratory: Denies: Dyspnea, Cough, Dyspnea on exertion Gastrointestinal: Denies: Abdominal pain, Nausea, Vomiting, Diarrhea, Melena, Hematochezia Genitourinary: Denies: Dysuria, Hematuria, Frequency Musculoskeletal: Reports: Myalgias. Denies: Back pain, Extremity Pain Skin: Denies: Rash, Wounds Neurological: Denies: Headache, Weakness, Numbness Physical Exam Vital Signs/Narrative: Vital Signs Temp Pulse Resp BP Pulse Ox 07/07/20 17:40 98.5 F 117 H 15 106/39 L 97 Inital Vital Signs reviewed: Yes General: Well nourished, Well developed, No Acute Distress Head: Normocephalic, Atraumatic Eyes: Perrl, EOMI ENT: Moist mucous membranes, No rhinorrhea Neck: Supple, Nontender Cardiovascular: Regular rate, Regular rhythm, No murmurs Respiratory: No distress, CTA bilaterally, Chest nontender Abdomen: Soft, Nontender, Nondistended, Normal bowel sounds Back: Nontender, Normal Inspection Extremities: Nontender, No edema Skin: Normal color, No rash Neurological: Alert, Oriented x3, Cranial nerves II-XII grossly intact, Normal Strength, Normal Sensation Psychological: Normal affect, Normal Mood Diagnostic/Tx/Re-eval Clinical Impression(s) from Imaging Studies Chest X-Ray 07/07/20 18:05 IMPRESSION: Normal x-ray examination of the chest. Electronically Signed: Andrew Kimbrough MD at 18:22 EDT Tel , Service support , Abnormal Lab Results 07/07/20 07/07/20 07/07/20 18:05 18:05 18:25 WBC 14.3 H RBC 5.39 Hgb 17.2 H Hct 51.2 MCV 95.0 H MCH 31.9 MCHC 33.6 RDW Std Deviation 49.3 H RDW Coeff of Ruperto 14.1 Plt Count 300 MPV 8.9 Immature Gran % (Auto) 0.800 Neut % (Auto) 93.2 H Lymph % (Auto) 3.1 L Hans[place] % (Auto) 2.3 Eos % (Auto) 0.4 Baso % (Auto) 0.2 Absolute Neuts (auto) 13.3 H Absolute Lymphs (auto) 0.44 L Nucleated RBC % 0 Differential Comment COMMENT Sodium Cancelled Cancelled Potassium Cancelled Cancelled Chloride Cancelled Cancelled Carbon Dioxide Cancelled Cancelled Anion Gap Cancelled Cancelled BUN Cancelled Cancelled Creatinine Cancelled Cancelled Estim Creat Clear Calc Cancelled Cancelled Est GFR (MDRD) Af Amer Cancelled Cancelled Est GFR (MDRD) Non-Af Cancelled Cancelled BUN/Creatinine Ratio Cancelled Cancelled Glucose Cancelled Cancelled Calcium Cancelled Cancelled Total Bilirubin Cancelled Cancelled AST Cancelled Cancelled ALT Cancelled Cancelled Alkaline Phosphatase Cancelled Cancelled Total Protein Cancelled Cancelled Albumin Cancelled Cancelled Globulin Cancelled Cancelled Albumin/Globulin Ratio Cancelled Cancelled - Medical Decision Making The patient presents with chills and myalgias after vaccinations. He is no evidence of anaphylaxis. He is mildly tachycardic, but afebrile. His blood pressure has been stable. He does have history of adrenal insufficiency, but has no nausea and is normotensive. I did obtain a chest x-ray which is unremarkable. The patient was given fluids and Tylenol. He was observed. My suspicion is that this is likely reaction to the vaccination, likely preservative. I do not feel this represents a serum sickness given the acute onset within a few hours of vaccination. He did have a low-grade fever and I gave him a smile dose of Motrin. After fluids, is feeling markedly improved. His chills have resolved. Again, I do feel that this is likely immune response to his vaccinations and he looks well. He wants to be discharged and I feel this is reasonable. Impression 1. Fever status post vaccination ED Disposition - Plan for ED Patient: Instructions: ED Drug React Adverse Other Referrals: Karan Talbert MD [Primary Care Provider] -
[2020-07-07 18:11] LABS: Absolute Lymphocyte Count 0.44 X10^3/uL (0.83-4.51); Absolute Neutrophil Count 13.3 X10^3/uL (2.0-7.7); Basophil# 0.03 X10^3/uL; Basophil% 0.2 % (0-1); Eosinophil# 0.05 X10^3/uL; Eosinophils% 0.4 % (0-5); Hematocrit 51.2 % (40-54); Hemoglobin 17.2 g/dL (13.0-16.5); Lymphocyte # 0.44 X10^3/ul (4.0); Lymphocyte % 3.1 % (19-41); Mean Corp Hgb Conc 33.6 g/dL (32-36); Mean Corpuscular Hgb 31.9 pg (27.0-32.0); Mean Platelet Vol. 8.9 fl (6.2-12.0); Monocyte# 0.33 X10^3/uL; Monocyte% 2.3 % (0-10); NRBC Flagged by Analyzer 0 % (0-5); Neutrophil # 13.28 X10^3/uL (2.7-7.7); Neutrophil % 93.2 % (47-70); POSITIVE DIFFERENTIAL YES; Platelet Count 300 K/mm3 (150-450); RBC Distribution Width CV 14.1 % (11.6-14.6); RBC Distribution Width SD 49.3 fl (35.1-43.9); Red Blood Count 5.39 M/mm3 (4.6-6.2); White Blood Count 14.3 K/mm3 (4.4-11.0)
[2020-07-07] MEDS: 0.9% Normal Saline 1,000 ML 1000 ML IV (18:11)
[2020-07-07] MEDS: Acetaminophen 500 MG Tablet 1000 MG PO (18:11)
[2020-07-07 18:16] LABS: Differential Indicated SCAN CRITERIA MET
[2020-07-07 18:17] VITALS: BP 149/83; PULSE 110; RESP 15; TEMP 36.9; O2SAT 97
[2020-07-07] MEDS: DiphenhydrAMINE 50 MG/ML Syringe 25 MG IV (19:25)
[2020-07-07 19:30] VITALS: BP 140/73; PULSE 109; RESP 18; TEMP 38.3; O2SAT 96
[2020-07-07] MEDS: Ibuprofen 200 MG Tablet 400 MG PO (19:55)
[2020-07-07 19:58] LABS: ALB/GLOB Ratio 1.3 RATIO (0.9-2.4); AST(SGOT) 24 U/L (15-37); Alanine Aminotransfer ALT/SGPT 28 U/L (16-61); Albumin, Serum 4.2 g/dL (3.2-5.0); Alkaline Phosphatase 108 U/L (45-117); Anion Gap 11 (5-15); BUN 43 mg/dL (7-18); BUN/Creat Ratio 21.2 RATIO (10-20); Calcium,Total 9.8 mg/dL (8.5-10.1); Chloride 104 mmol/L (98-107); Creatinine, Serum 2.03 mg/dL (0.70-1.30); EST Glomerular Filtration Rate 35 mL/min (>60); Est Glom Filt Rate - Afr Amer 42 mL/min (>60); Estimated Creatinine Clearance 36.06 ml/min; Globulin 3.2 g/dL (2.2-4.2); Glucose 79 mg/dL (74-106); Potassium 5.2 mmol/L (3.5-5.1); Protein, Total 7.4 g/dL (6.4-8.2); Sodium Level 137 mmol/L (136-145)
== END 2020-07-07 20:12 | disposition home or self-care (01) ==
LOC: ED 18:31
PROVIDERS: Emergency Provider Emergency Medicine; PCP Family Medicine
DX: R50.83 Postvaccination fever (principal); T50.B95A Adverse effect of other viral vaccines, initial encounter; Y92.531 Health care provider office as the place of occurrence of the external cause; E27.40 Unspecified adrenocortical insufficiency; N18.9 Chronic kidney disease, unspecified; F17.200 Nicotine dependence, unspecified, uncomplicated; Z79.899 Other long term (current) drug therapy
CPT/HCPCS: 71045; 80053; 85025; 96360; 99285; J7030; A4216

== ENCOUNTER 2020-07-13 12:38 | Outpatient (RCR) | payer MEDICARE, OTHER, SELFPAY ==
[2019-09-01 11:08] VITALS: BMI 25.5
[2020-07-13 14:50] LABS: Anion Gap 7 (5-15); BUN 31 mg/dL (7-18); BUN/Creat Ratio 16.1 RATIO (10-20); Calcium,Total 9.2 mg/dL (8.5-10.1); Chloride 107 mmol/L (98-107); Creatinine, Serum 1.93 mg/dL (0.70-1.30); EST Glomerular Filtration Rate 37 mL/min (>60); Est Glom Filt Rate - Afr Amer 44 mL/min (>60); Glucose 104 mg/dL (74-106); Potassium 4.8 mmol/L (3.5-5.1); Sodium Level 137 mmol/L (136-145)
== END 2020-07-13 18:00 | disposition home or self-care (01) ==
LOC: LAB 12:38
PROVIDERS: PCP Family Medicine; Referring Provider Internal Medicine Endocrinology, Diabetes & Metabolism; Visit Provider Internal Medicine Endocrinology, Diabetes & Metabolism
DX: I10 Essential (primary) hypertension (principal); E27.49 Other adrenocortical insufficiency; Z79.899 Other long term (current) drug therapy
CPT/HCPCS: 36415; 80048

== ENCOUNTER 2020-08-09 11:29 | Outpatient (RCR) | payer MEDICARE, OTHER, SELFPAY ==
[2020-08-09 12:51] LABS: Anion Gap 6 (5-15); BUN 14 mg/dL (7-18); BUN/Creat Ratio 8.3 RATIO (10-20); Calcium,Total 9.5 mg/dL (8.5-10.1); Chloride 113 mmol/L (98-107); Creatinine, Serum 1.69 mg/dL (0.70-1.30); EST Glomerular Filtration Rate 43 mL/min (>60); Est Glom Filt Rate - Afr Amer 52 mL/min (>60); Glucose 84 mg/dL (74-106); Potassium 4.3 mmol/L (3.5-5.1); Sodium Level 143 mmol/L (136-145)
== END 2020-08-09 18:00 | disposition home or self-care (01) ==
LOC: LAB 11:29
PROVIDERS: PCP Family Medicine; Referring Provider Internal Medicine Endocrinology, Diabetes & Metabolism; Visit Provider Internal Medicine Endocrinology, Diabetes & Metabolism
DX: I10 Essential (primary) hypertension (principal); E27.49 Other adrenocortical insufficiency; Z79.899 Other long term (current) drug therapy
CPT/HCPCS: 36415; 80048

== ENCOUNTER → 2020-10-05 11:08 | Outpatient (CLI) | payer MEDICARE, OTHER, SELFPAY ==
[2020-10-05 12:53] LABS: AST(SGOT) 13 U/L (15-37); Alanine Aminotransfer ALT/SGPT 28 U/L (16-61); Albumin, Serum 3.7 g/dL (3.2-5.0); Alkaline Phosphatase 101 U/L (45-117); Anion Gap 4 (5-15); BUN 22 mg/dL (7-18); BUN/Creat Ratio 12.9 RATIO (10-20); Calcium,Total 9.8 mg/dL (8.5-10.1); Chloride 110 mmol/L (98-107); Cholesterol 225 mg/dL (200); EST Glomerular Filtration Rate 42 mL/min (>60); Est Glom Filt Rate - Afr Amer 51 mL/min (>60); Globulin 3.7 g/dL (2.2-4.2); Glucose 90 mg/dL (74-106); High Density Lipoprotein 56 mg/dL; Potassium 4.9 mmol/L (3.5-5.1); Protein, Total 7.4 g/dL (6.4-8.2); Sodium Level 140 mmol/L (136-145); Triglycerides 116 mg/dL; Very Low Density Lipoprotein 23 mg/dL (5-40)
== END ==
PROVIDERS: PCP Family Medicine; Referring Provider Family Medicine; Visit Provider Family Medicine
DX: I10 Essential (primary) hypertension (principal)
CPT/HCPCS: 36415; 80053; 80061

== ENCOUNTER 2020-10-17 15:43 | Inpatient (IN) | payer MEDICARE, OTHER, SELFPAY ==
[2020-10-17] VITALS (19 sets, daily range): BP systolic 111–205; BP diastolic 49–192; PULSE 71–94; RESP 12–23; TEMP 36.2–36.9; O2SAT 91–100; BMI 29.0; BMI 27.3
--- NOTE | 2020-10-17 15:51 | EKG12_ITS ---
Test Reason : CP Blood Pressure : / mmHG Vent. Rate : 076 BPM Atrial Rate : 076 BPM P-R Int : 152 ms QRS Dur : 088 ms QT Int : 410 ms P-R-T Axes : 064 028 066 degrees QTc Int : 461 ms Sinus rhythm with frequent Premature ventricular complexes Confirmed by GUS FLEMING, MARK ([id number]), associate entertainment editor CHAUNCEY OSORIO ([id number]) on 10/19/2020 8:14:58 AM Referred By: JAIME Confirmed By:MARK WEBER MD
--- NOTE | 2020-10-17 15:55 | EKG12_ITS ---
Test Reason : AM EKG Blood Pressure : / mmHG Vent. Rate : 092 BPM Atrial Rate : 092 BPM P-R Int : 146 ms QRS Dur : 096 ms QT Int : 396 ms P-R-T Axes : 058 040 061 degrees QTc Int : 489 ms Normal sinus rhythm Nonspecific ST and T wave abnormality Prolonged QT Abnormal ECG When compared with ECG of 17-OCT-2020 21:42, MANUAL COMPARISON REQUIRED, DATA IS UNCONFIRMED Confirmed by TIM FLEMING, MELISA ([id number]), deputy editor in chief CHAUNCEY OSORIO ([id number]) on 10/23/2020 9:35:08 AM Referred By: LINCOLN Confirmed By:DIOGENES DUMONT MD
--- NOTE | 2020-10-17 15:56 | CT_ITS ---
STUDY: CTA CHEST REASON FOR EXAM: Male, 70 years old. SUDDEN ONSET OF CP, ? DISSECTION, CKD, TIA, CAD, PAD, LT ENDARTERECTOMY, BLADDER CA -- Per Curtis Mahmood, DO would like to speak with reading rad as soon as case is read. RADIATION DOSAGE (If Supplied By Facility): CTDIvol = ( 15.19 ) mGy, DLP = ( 914.38 ) mGycm TECHNIQUE: The examination was performed with the intravenous administration of IV 100mL Isovue-370. Post-processing of the angiographic images was performed, with multiplanar reformation and 3D reconstruction. Individualized dose optimization techniques were used for this CT. COMPARISON: CTA of the chest dated July 20172018. FINDINGS: Normal enhancement of the main pulmonary artery and right and left pulmonary arteries. Normal enhancement of the bilateral peripheral pulmonary arteries. There is no demonstrated pulmonary embolism. There is atherosclerotic calcification of the aortic arch with tortuosity. Heavy chronic mural thrombus and plaque is present in the descending thoracic aorta resulting in mild luminal narrowing. Mild atherosclerotic narrowing is also present at the origins of arteries of the aortic arch. There is no demonstrated aortic dissection. Normal heart size and pericardium. Normal mediastinum. Normal hilar regions. Normal visualized trachea and bronchi. Hyperinflated lungs with significant cystic emphysematous changes. Platelike atelectasis is present in the left lower lobe. No visualized pneumonic consolidation or active pulmonary edema. No pleural effusion is present. Normal pleura. Normal chest wall structures. There are degenerative changes of thoracic spine. Abdominal findings are on the CTA of the abdomen report. IMPRESSION: 1. No demonstrated pulmonary embolism or arterial dissection. 2. Hyperinflated lungs with significant cystic emphysematous changes. 3. Platelike atelectasis is present in the left lower lobe. 4. No visualized pneumonic consolidation or active pulmonary edema. No pleural effusion is present. Electronically Signed: Evert Landin MD at 16:59 EST , Service support , STUDY: CTA OF THE ABDOMEN REASON FOR EXAM: Male, 70 years old. SUDDEN ONSET OF CP, ? DISSECTION, CKD, TIA, CAD, PAD, LT ENDARTERECTOMY, BLADDER CA -- Per Curtis Mahmood, DO would like to speak with reading rad as soon as case is read. RADIATION DOSAGE (If Supplied By Facility): CTDIvol = ( 15.19 ) mGy, DLP = ( 914.38 ) mGycm TECHNIQUE: Axial CT angiography multi-detector data acquisition was obtained following intravenous administration of IV 100M ISOVUE 370. Axial images and MIP images were reconstructed from the axial data set. Post-processing of the angiographic images was performed, with multiplanar reformation and 3D reconstruction. Individualized dose optimization techniques were used for this CT. TECHNICAL QUALITY: Good COMPARISON: CTA of the chest dated October 17, 2020. Descriptors of Narrowing: None (0%) Mild (< 50%) Moderate (50-70%) Severe (70-90%) Subtotal/Total Occlusion (90-100%) Non-Evaluable (technically non-diagnostic FINDINGS: Abdominal aorta: A 3.69 cm infrarenal abdominal aortic aneurysm is present. A moderate amount of chronic mural thrombus and atherosclerotic plaque is present in the lumen of the aorta resulting in mild narrowing central. There are no signs of periaortic leak. There is no dissection. Celiac and superior mesenteric arteries: No demonstrated narrowing. Inferior mesenteric artery: There is moderate diffuse narrowing. Right renal artery(arteries): There is moderate narrowing at the origin of the vessel at approximately 50%. Left renal artery(arteries): There is moderate narrowing at the origin of the vessel at approximately 50%. Right common iliac artery: There is mild diffuse narrowing. Left common iliac artery: There is moderate diffuse narrowing. NONVASCULAR FINDINGS: Diffuse cystic emphysematous changes are present. Left lower lobe atelectasis noted. Normal liver. Normal gallbladder and extrahepatic biliary system. Normal spleen. Normal pancreas. Normal bilateral adrenal glands. There is moderate cortical atrophy of the right kidney, consistent with chronic medical renal disease. There is moderate cortical atrophy of the left kidney, consistent with chronic medical renal disease. Numerous stones are scattered throughout both kidneys of varying size. No demonstrated hydronephrosis. Multiple cysts are also present in both kidneys. A large cortical exophytic nonenhancing cyst is present at the superior pole and lateral aspect of the left kidney measuring 8.66 cm in diameter. Normal visualized stomach. Normal small intestine. There are multiple colonic diverticula consistent with diverticulosis. The appendix is visualized and appears normal. Normal inferior vena cava. Normal retroperitoneum. Normal abdominal wall. There are diffuse degenerative changes of the visualized lumbar spine. CT/CTA Chest W/WO Contrast IMPRESSION: 1. 3.69 cm abdominal aortic aneurysm 2. Moderate atherosclerotic stenosis at the origin of the bilateral renal arteries. 3. Colonic diverticulosis 4. Moderate atrophy of the kidneys and numerous bilateral kidney stones Electronically Signed: Evert Landin MD at 17:07 EST , Service support ,
[2020-10-17] MEDS: Nitroglycerin SL (ED/IMG/CATH) 0.4 MG TABLET SUBLINGUAL ×2 (15:57→16:16)
--- NOTE | 2020-10-17 16:00 | CT_ITS ---
STUDY: CTA CHEST REASON FOR EXAM: Male, 70 years old. SUDDEN ONSET OF CP, ? DISSECTION, CKD, TIA, CAD, PAD, LT ENDARTERECTOMY, BLADDER CA -- Per Curtis Mahmood, DO would like to speak with reading rad as soon as case is read. RADIATION DOSAGE (If Supplied By Facility): CTDIvol = ( 15.19 ) mGy, DLP = ( 914.38 ) mGycm TECHNIQUE: The examination was performed with the intravenous administration of IV 100mL Isovue-370. Post-processing of the angiographic images was performed, with multiplanar reformation and 3D reconstruction. Individualized dose optimization techniques were used for this CT. COMPARISON: CTA of the chest dated July 20172018. FINDINGS: Normal enhancement of the main pulmonary artery and right and left pulmonary arteries. Normal enhancement of the bilateral peripheral pulmonary arteries. There is no demonstrated pulmonary embolism. There is atherosclerotic calcification of the aortic arch with tortuosity. Heavy chronic mural thrombus and plaque is present in the descending thoracic aorta resulting in mild luminal narrowing. Mild atherosclerotic narrowing is also present at the origins of arteries of the aortic arch. There is no demonstrated aortic dissection. Normal heart size and pericardium. Normal mediastinum. Normal hilar regions. Normal visualized trachea and bronchi. Hyperinflated lungs with significant cystic emphysematous changes. Platelike atelectasis is present in the left lower lobe. No visualized pneumonic consolidation or active pulmonary edema. No pleural effusion is present. Normal pleura. Normal chest wall structures. There are degenerative changes of thoracic spine. Abdominal findings are on the CTA of the abdomen report. IMPRESSION: 1. No demonstrated pulmonary embolism or arterial dissection. 2. Hyperinflated lungs with significant cystic emphysematous changes. 3. Platelike atelectasis is present in the left lower lobe. 4. No visualized pneumonic consolidation or active pulmonary edema. No pleural effusion is present. Electronically Signed: Evert Landin MD at 16:59 EST , Service support , STUDY: CTA OF THE ABDOMEN REASON FOR EXAM: Male, 70 years old. SUDDEN ONSET OF CP, ? DISSECTION, CKD, TIA, CAD, PAD, LT ENDARTERECTOMY, BLADDER CA -- Per Curtis Mahmood, DO would like to speak with reading rad as soon as case is read. RADIATION DOSAGE (If Supplied By Facility): CTDIvol = ( 15.19 ) mGy, DLP = ( 914.38 ) mGycm TECHNIQUE: Axial CT angiography multi-detector data acquisition was obtained following intravenous administration of IV 100M ISOVUE 370. Axial images and MIP images were reconstructed from the axial data set. Post-processing of the angiographic images was performed, with multiplanar reformation and 3D reconstruction. Individualized dose optimization techniques were used for this CT. TECHNICAL QUALITY: Good COMPARISON: CTA of the chest dated October 17, 2020. Descriptors of Narrowing: None (0%) Mild (< 50%) Moderate (50-70%) Severe (70-90%) Subtotal/Total Occlusion (90-100%) Non-Evaluable (technically non-diagnostic FINDINGS: Abdominal aorta: A 3.69 cm infrarenal abdominal aortic aneurysm is present. A moderate amount of chronic mural thrombus and atherosclerotic plaque is present in the lumen of the aorta resulting in mild narrowing central. There are no signs of periaortic leak. There is no dissection. Celiac and superior mesenteric arteries: No demonstrated narrowing. Inferior mesenteric artery: There is moderate diffuse narrowing. Right renal artery(arteries): There is moderate narrowing at the origin of the vessel at approximately 50%. Left renal artery(arteries): There is moderate narrowing at the origin of the vessel at approximately 50%. Right common iliac artery: There is mild diffuse narrowing. Left common iliac artery: There is moderate diffuse narrowing. NONVASCULAR FINDINGS: Diffuse cystic emphysematous changes are present. Left lower lobe atelectasis noted. Normal liver. Normal gallbladder and extrahepatic biliary system. Normal spleen. Normal pancreas. Normal bilateral adrenal glands. There is moderate cortical atrophy of the right kidney, consistent with chronic medical renal disease. There is moderate cortical atrophy of the left kidney, consistent with chronic medical renal disease. Numerous stones are scattered throughout both kidneys of varying size. No demonstrated hydronephrosis. Multiple cysts are also present in both kidneys. A large cortical exophytic nonenhancing cyst is present at the superior pole and lateral aspect of the left kidney measuring 8.66 cm in diameter. Normal visualized stomach. Normal small intestine. There are multiple colonic diverticula consistent with diverticulosis. The appendix is visualized and appears normal. Normal inferior vena cava. Normal retroperitoneum. Normal abdominal wall. There are diffuse degenerative changes of the visualized lumbar spine. CT/CTA Abdomen W/WO Contrast IMPRESSION: 1. 3.69 cm abdominal aortic aneurysm 2. Moderate atherosclerotic stenosis at the origin of the bilateral renal arteries. 3. Colonic diverticulosis 4. Moderate atrophy of the kidneys and numerous bilateral kidney stones Electronically Signed: Evert Landin MD at 17:07 EST , Service support ,
--- NOTE | 2020-10-17 16:01 | ED.DCSUM_ITS ---
History of Present Illness Chief Complaint: Chest Pain Narrative: 70-year-old male with diabetes, hypertension, hyperlipidemia, vascular disease, adrenal insufficiency presenting with chest pain which he rates as 10 of 10. It is in the center of his chest. He states it radiates to the back. He states it feels sharp. The started 315 prior to arrival which would be 2 hours ago. It has not changed. He states he is not short of breath. He does have mild nausea. - Past Medical History (1) PAD (peripheral artery disease) Status: Chronic (2) Adrenal insufficiency Status: Chronic (3) Claudication in peripheral vascular disease Status: Chronic Past Medical History - Allergies and Home Meds Allergies/Adverse Reactions: Allergies morphine Allergy (Verified 10/17/20 15:44) HALLUCINATIONS vaccine adjuvant system, AS01B liposomal [From Shingrix (PF)] Adverse Reaction (Verified 10/17/20 15:44) Fever and skin rash varicella-zoster virus glycoprotein E, recombinant [From Shingrix (PF)] Adverse Reaction (Verified 10/17/20 15:44) Fever and skin rash Prior records reviewed: Yes Past Medical History: - - Reviewed in problem list Surgical History: noncontributory, - - Hand surgery for trigger finger. Surgery on her wrist at x2. 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 Len was placed in left femur. Carotid endarterectomy. Bladder surgery for cancer. Lives: Spouse/ Significant Other Smoking Status: Current every day smoker Alcohol: None Drugs: None - Family History Maternal Family History: Family History (Last Reviewed 10/17/20 @ 17:52 by JARON Vega) Father Lung cancer Brother Throat cancer Brother Stomach cancer Mother Heart problem Family History: Reports: Heart Disease Paternal Family History: Family History (Last Reviewed 10/17/20 @ 17:52 by JARON Vega) Father Lung cancer Brother Throat cancer Brother Stomach cancer Mother Heart problem Family History: Reports: Cancer - lung Sibling Family History: Family History (Last Reviewed 10/17/20 @ 17:52 by JARON Vega) Father Lung cancer Brother Throat cancer Brother Stomach cancer Mother Heart problem Family History: Reports: Cancer - throat and stomach Review of Systems General: Denies: Chills, Fever, Sweats Eyes: Reports: Visual changes - left ENT: Denies: Rhinorrhea, Sore throat Cardiovascular: Reports: Chest pain, Heart racing Respiratory: Denies: Dyspnea, Cough, Sputum Gastrointestinal: Reports: Nausea. Denies: Abdominal pain, Vomiting, Constipation Genitourinary: Denies: Dysuria, Hematuria, Frequency Musculoskeletal: Denies: Back pain, Extremity Pain Skin: Denies: Rash, Wounds Neurological: Reports: Headache. Denies: Parasthesia, Numbness Psych: Denies: Depression, Anxiety, Suicidal thoughts, Suicidal ideations, -, - Physical Exam Vital Signs/Narrative: Vital Signs Temp Pulse Resp BP Pulse Ox 10/17/20 15:57 94 189/131 H 10/17/20 15:44 97.2 F L 94 22 H 189/131 H 94 Inital Vital Signs reviewed: Yes General: Acute Distress, - - Appears to be in pain clutching his chest Eyes: Perrl, EOMI ENT: Moist mucous membranes, No rhinorrhea Cardiovascular: Regular rate, Regular rhythm Respiratory: No distress, CTA bilaterally Extremities: Nontender, No edema, - - Pulses 1+ and symmetric bilaterally. Skin: Normal color, No rash Neurological: Alert Psychological: Agitated, - Diagnostic/Tx/Re-eval Clinical Impression(s) from Imaging Studies Chest CTA 10/17/20 15:56 IMPRESSION: 1. 3.69 cm abdominal aortic aneurysm 2. Moderate atherosclerotic stenosis at the origin of the bilateral renal arteries. 3. Colonic diverticulosis 4. Moderate atrophy of the kidneys and numerous bilateral kidney stones Electronically Signed: Evert Landin MD at 17:07 EST , Service support , Abdomen CTA 10/17/20 16:00 IMPRESSION: 1. 3.69 cm abdominal aortic aneurysm 2. Moderate atherosclerotic stenosis at the origin of the bilateral renal arteries. 3. Colonic diverticulosis 4. Moderate atrophy of the kidneys and numerous bilateral kidney stones Electronically Signed: Evert Landin MD at 17:07 EST , Service support , Laboratory Data 10/17/20 10/17/20 10/17/20 15:55 15:55 16:32 WBC 15.1 H RBC 5.24 Hgb 16.6 H Hct 50.2 MCV 95.8 H MCH 31.7 MCHC 33.1 RDW Std Deviation 50.0 H RDW Coeff of Ruperto 15.2 H Plt Count 341 MPV 10.4 Immature Gran % (Auto) 0.500 Neut % (Auto) 70.5 H Lymph % (Auto) 20.4 [place]ack[place]ord % (Auto) 7.7 Eos % (Auto) 0.5 Baso % (Auto) 0.4 Absolute Neuts (auto) 10.7 H Absolute Lymphs (auto) 3.08 Nucleated RBC % 0 Sodium Cancelled 140 Potassium Cancelled 3.9 Chloride Cancelled 109 H Carbon Dioxide Cancelled 27.0 Anion Gap Cancelled 4 L BUN Cancelled 17 Creatinine Cancelled 1.52 H Estim Creat Clear Calc Cancelled 47.48 Est GFR (MDRD) Af Amer Cancelled 58 L Est GFR (MDRD) Non-Af Cancelled 48 L BUN/Creatinine Ratio Cancelled 11.2 Glucose Cancelled 121 H Calcium Cancelled 8.7 Troponin I Cancelled 0.024 - EKG Initial EKG Interpretation: Sinus Rhythm, - - Mild ST depression in V3 through V6. Also present in lead II. There is some motion artifact. Prior: Changed Follow-up EKG Interpretation: Sinus Rhythm, Non-Specific ST Changes, - - PVCs Prior: Changed - Medical Decision Making 70-year-old male with multiple comorbidities presenting with chest pain and hypertension. Patient describing his chest pain is radiating from the front to the back 10 of 10 clutching his chest. Initial EKG with sinus rhythm at 96 bpm with evidence of ST depression V3 to V6 as well as lead II as interpreted by myself. This is changed from previous EKGs. Given the hypertension and concern for dissection patient was taken for CTA. This was negative for dissection, PE, other acute process. Patient continued to have pain. He was treated with nitroglycerin x2 which did not address his pain. He was given fentanyl as well as Lopressor x3 his blood pressure is lower and he is in a pain score of 2. Repeat EKG is sinus rhythm at 75 bpm with PVCs without ischemic change as interpreted by myself. Lab work shows a leukocytosis which I believe would probably be reactive as we found no source of infection. Troponin is negative. Renal function is consistent with his chronic kidney disease. Patient was given IV fluids as well. Given patient's risk factors and abnormal EKG he will be brought into the hospital for monitoring. Patient is transferred to the floor in stabilized condition. Impression: 1. Hypertensive crisis 2. Chest pain 3. Leukocytosis ED Disposition - Plan for ED Patient: Disposition: Acute Care Hospital [facility]
[2020-10-17 16:11] LABS: Absolute Lymphocyte Count 3.08 X10^3/uL (0.83-4.51); Absolute Neutrophil Count 10.7 X10^3/uL (2.0-7.7); Basophil# 0.06 X10^3/uL; Basophil% 0.4 % (0-1); Eosinophil# 0.07 X10^3/uL; Eosinophils% 0.5 % (0-5); Hematocrit 50.2 % (40-54); Hemoglobin 16.6 g/dL (13.0-16.5); Lymphocyte # 3.08 X10^3/ul (4.0); Lymphocyte % 20.4 % (19-41); Mean Corp Hgb Conc 33.1 g/dL (32-36); Mean Corpuscular Hgb 31.7 pg (27.0-32.0); Mean Corpuscular Volume 95.8 fL (80-94); Mean Platelet Vol. 10.4 fl (6.2-12.0); Monocyte# 1.17 X10^3/uL; Monocyte% 7.7 % (0-10); NRBC Flagged by Analyzer 0 % (0-5); Neutrophil # 10.67 X10^3/uL (2.7-7.7); Neutrophil % 70.5 % (47-70); Platelet Count 341 K/mm3 (150-450); RBC Distribution Width CV 15.2 % (11.6-14.6); Red Blood Count 5.24 M/mm3 (4.6-6.2); White Blood Count 15.1 K/mm3 (4.4-11.0)
[2020-10-17] MEDS: fentaNYL 100 MCG/2 ML Ampul 50 MCG IV ×3 (16:13→17:50)
[2020-10-17] MEDS: 0.9% Normal Saline 1,000 ML 999 ML IV (16:15)
[2020-10-17] MEDS: Ondansetron 4 MG/2 ML Vial IV (16:16)
[2020-10-17] MEDS: Metoprolol Tartrate 5 MG/5 ML Vial IV ×3 (16:24→17:41)
--- NOTE | 2020-10-17 16:30 | EKG12_ITS ---
Test Reason : CP Blood Pressure : / mmHG Vent. Rate : 094 BPM Atrial Rate : 094 BPM P-R Int : 140 ms QRS Dur : 084 ms QT Int : 378 ms P-R-T Axes : 039 024 074 degrees QTc Int : 472 ms Sinus rhythm with occasional and consecutive Premature ventricular complexes and Fusion complexes Nonspecific ST and T wave abnormality Abnormal ECG Confirmed by GUS FLEMING, MARK ([id number]), film editor CHAUNCEY OSORIO ([id number]) on 10/19/2020 8:15:20 AM Referred By: JAIME Confirmed By:MARK WEBER MD
--- NOTE | 2020-10-17 16:30 | NURSING ---
[facility] HEMOLIZED
[2020-10-17 17:17] LABS: Anion Gap 4 (5-15); BUN 17 mg/dL (7-18); BUN/Creat Ratio 11.2 RATIO (10-20); Calcium,Total 8.7 mg/dL (8.5-10.1); Chloride 109 mmol/L (98-107); Creatinine, Serum 1.52 mg/dL (0.70-1.30); EST Glomerular Filtration Rate 48 mL/min (>60); Est Glom Filt Rate - Afr Amer 58 mL/min (>60); Estimated Creatinine Clearance 47.48 ml/min; Glucose 121 mg/dL (74-106); Potassium 3.9 mmol/L (3.5-5.1); Sodium Level 140 mmol/L (136-145)
--- NOTE | 2020-10-17 17:44 | PCM.HP.STD ---
Problem List (1) Chest pain Status: Acute (2) PAD (peripheral artery disease) Status: Chronic (3) Nicotine abuse Status: Chronic (4) Adrenal insufficiency Status: Chronic (5) Nicotine dependence Status: Chronic (6) Bilateral carotid artery stenosis Status: Chronic Comment: Moderate (50-69%) stenosis right extracranial internal carotid. Moderate (50-69%) stenosis left extracranial internal carotid. U/S 06/2018 Left CEA 2014 (7) Bladder cancer Status: Chronic (8) Chronic kidney disease (CKD) Status: Chronic (9) Essential (primary) hypertension Status: Chronic (10) HLD (hyperlipidemia) Status: Chronic Qualifiers: Hyperlipidemia type: pure hypercholesterolemia Qualified Code(s): E78.00 - Pure hypercholesterolemia, unspecified; E78.0 - Pure hypercholesterolemia History of Present Illness Date of Admission: 10/17/20 Chief Complaint: chest pain The patient is a 70 year old M with pmhx of heavy nicotine abuse, PAD with prior stents, HTN, HLD, adrenal insufficiency, CKDIII pt of ERASMO Maher, Bladder cancer, COPD, who presents to the ER with severe chest pain. This began today at approximately 3 pm. He was sitting watching tv when this started. He had had some chest tightness earlier in the day but not like this. He had been in his normal state of health until today. He described severe pain across his chest on both sides with radiation into his back between his shoulder blades. He has associated nausea and vomiting. He had tingling of the left hand. He denies LH or dizziness. He denies diaphoresis. He came to the ER by squad and was found to have severely elevated BP. The pain has gone from his chest and settled into the area in the back between his shoulder blades. [] Past Medical History Past Medical History (Chronic Problems): Chronic Problems (Last Reviewed 09/01/19 @ 12:[address] Maximiliano Kunz MD) PAD (peripheral artery disease) (Chronic) Nicotine abuse (Chronic) Adrenal insufficiency (Chronic) Nicotine dependence (Chronic) Claudication in peripheral vascular disease (Chronic) Bilateral carotid artery stenosis (Chronic) Moderate (50-69%) stenosis right extracranial internal carotid. Moderate (50-69%) stenosis left extracranial internal carotid. U/S 06/2018 Left CEA 2014 Bladder cancer (Chronic) Chronic kidney disease (CKD) (Chronic) Essential (primary) hypertension (Chronic) Orthostatic hypotension (Chronic) HLD (hyperlipidemia) (Chronic) Medical History: Medical History (Last Reviewed 09/01/19 @ 12:[address] Maximiliano Kunz MD) Adrenal insufficiency (Chronic) E27.40 Nicotine dependence (Chronic) F17.200 Claudication in peripheral vascular disease (Chronic) I73.9 Bilateral carotid artery stenosis (Chronic) I65.23 Moderate (50-69%) stenosis right extracranial internal carotid. Moderate (50-69%) stenosis left extracranial internal carotid. U/S 06/2018 Left CEA 2014 Bladder cancer (Chronic) C67.9 Chronic kidney disease (CKD) (Chronic) N18.9 Essential (primary) hypertension (Chronic) I10 Orthostatic hypotension (Chronic) I95.1 HLD (hyperlipidemia) (Chronic) E78.5 Balance problem R26.89 Basal cell carcinoma C44.91 COPD (chronic obstructive pulmonary disease) J44.9 Frequent falls R29.6 Hypotension I95.9 Kidney calculi Near syncope R55 PAD (peripheral artery disease) I73.9 Right iliac artery stenosis I77.1 Acute kidney injury N17.9 Hypoxia R09.02 Lactic acidosis E87.2 Syncope R55 Allergies morphine Allergy (Verified 10/17/20 15:44) HALLUCINATIONS vaccine adjuvant system, AS01B liposomal [From Shingrix (PF)] Adverse Reaction (Verified 10/17/20 15:44) Fever and skin rash varicella-zoster virus glycoprotein E, recombinant [From Shingrix (PF)] Adverse Reaction (Verified 10/17/20 15:44) Fever and skin rash Home Medications: Ambulatory Orders Medication Instructions Recorded Atorvastatin Calcium [Lipitor] 20 mg PO QHS 10/14/18 Gabapentin [Neurontin] 400 mg PO TIDCM 10/14/18 Amitriptyline HCl [Elavil] 100 mg PO QHS 01/30/19 Cilostazol 100 mg PO BID 05/18/19 Clopidogrel Bisulfate [Plavix] 75 mg PO DAILY 05/18/19 Ipratropium/Albuterol Respimat 1 puff INHALATION DAILY 07/30/19 [Combivent Respimat Inhal [place]] Hydrocortisone [Cortef] 10 mg PO BIDCM #60 tab 08/03/19 midodrine 5 mg tablet 2.5 mg PO PRN PRN tab 04/24/20 buPROPion SR [Wellbutrin SR (150mg 150 mg PO BID 07/07/20 tablets)] Surgical History: Surgical History (Last Reviewed 09/01/19 @ 12:[address] Maximiliano Kunz MD) History of bladder surgery Z98.890 History of herniorrhaphy Onset Date: 2018 Z98.890, Z87.19 History of left-sided carotid endarterectomy Onset Date: 2014 Z98.890 History of open reduction and internal fixation (ORIF) procedure Z98.890 femur Surgical History: - - Hand surgery for trigger finger. Surgery on her wrist at x2. 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 Len was placed in left femur. Carotid endarterectomy. Bladder surgery for cancer. peripheral vascular stenting Psychiatric History: No pertinent psych hx Lives: Spouse/ Significant Other Smoking Status: Current every day smoker Tobacco Use: Cigarettes Alcohol: None Drugs: None - *Family History Maternal Family History: Family History (Last Reviewed 10/17/20 @ 17:52 by JARON Vega) Father Lung cancer Brother Throat cancer Brother Stomach cancer Mother Heart problem History Items: Heart Disease Paternal Family History: Family History (Last Reviewed 10/17/20 @ 17:52 by JARON Vega) Father Lung cancer Brother Throat cancer Brother Stomach cancer Mother Heart problem History Items: Cancer - lung Sibling Family History: Family History (Last Reviewed 10/17/20 @ 17:52 by JARON Vega) Father Lung cancer Brother Throat cancer Brother Stomach cancer Mother Heart problem History Items: Cancer - throat and stomach Review of Systems Constitutional: Denies: Chills, Fever, Weight Change HEENT: Denies: Head Aches, Sinus Congestion, Sinus Drainage Cardiovascular: Reports: Chest Pain, Chest Tightness. Denies: Edema, Light Headedness, Palpitations, Syncope Respiratory: Denies: Cough, Shortness of breath at rest, Sputum production Gastrointestinal: Reports: Nausea, Vomiting. Denies: Abdominal Pain, Diarrhea Genitourinary: Denies: Dysuria, Hesitancy, Urgency Musculoskeletal: Reports: Back Pain. Denies: Joint Pain, Joint Tenderness, Muscle pain Skin: Denies: Lesions, Rash, Wounds Neurological: Denies: Numbness, Tingling, Focal weakness Psychiatric: Denies: Anxiety, Depression, Homicidal Ideations, Suicidal Ideations Hematologic/ Lymphatic: Denies: Easy Bruising, Easy Bleeding VTE Information - Inpt Only VTE Present on Admission: No VTE Mechan Device Prophylaxis: None VTE Pharm Prophylaxis ordered?: Yes - Physical Exam Vitals/I&O's: Vital Signs Temp Pulse Resp BP Pulse Ox 97.2 F L 72 22 H 172/104 H 97 10/17/20 15:44 10/17/20 17:38 10/17/20 16:48 10/17/20 17:38 10/17/20 16:48 Oxygen Flow Rate (L/min) 4 Oxygen Delivery Method Nasal Cannula Weight: 208 lb 4.8 oz Body Mass Index (BMI) 29.0 Finger Stick Blood Glucose 134 Intake and Output for Last 24 Hours 10/15/20 10/16/20 10/17/20 23:59 23:59 23:59 Intake Total 1000 / 1000 Balance 1000 / 1000 General: Alert, Oriented x3, Cooperative HEENT: Atraumatic, PERRLA, EOMI, Normocephalic Neck: Supple, No JVD, Negative Carotid Bruits Lungs: Clear to auscultation, Diminished Cardiovascular: Regular rate, No murmurs Abdomen: Bowel Sounds Present, Soft, Non Tender, Obese Extremities: No edema, Capillary Refill Less than 3 Seconds Skin: No rashes, No breakdown Musculoskeletal: No Tenderness to Palpation of Joints or Extremities Neurological: Cranial nerves II-XII grossly intact Psych/Mental Status: Normal Affect, Appropriate Laboratory Results 10/17/20 15:55: WBC 15.1 H, RBC 5.24, Hgb 16.6 H, Hct 50.2, MCV 95.8 H, MCH 31.7, MCHC 33.1, RDW Std Deviation 50.0 H, RDW Coeff of Ruperto 15.2 H, Plt Count 341, MPV 10.4, Immature Gran % (Auto) 0.500, Neut % (Auto) 70.5 H, Lymph % (Auto) 20.4, [place] % (Auto) 7.7, Eos % (Auto) 0.5, Baso % (Auto) 0.4, Absolute Neuts (auto) 10.7 H, Absolute Lymphs (auto) 3.08, Nucleated RBC % 0 10/17/20 15:55: Sodium Cancelled, Potassium Cancelled, Chloride Cancelled, Carbon Dioxide Cancelled, Anion Gap Cancelled, BUN Cancelled, Creatinine Cancelled, Estim Creat Clear Calc Cancelled, Est GFR (MDRD) Af Amer Cancelled, Est GFR (MDRD) Non-Af Cancelled, BUN/Creatinine Ratio Cancelled, Glucose Cancelled, Calcium Cancelled, Troponin I Cancelled 10/17/20 16:32: Sodium 140, Potassium 3.9, Chloride 109 H, Carbon Dioxide 27.0, Anion Gap 4 L, BUN 17, Creatinine 1.52 H, Estim Creat Clear Calc 47.48, Est GFR (MDRD) Af Amer 58 L, Est GFR (MDRD) Non-Af 48 L, BUN/Creatinine Ratio 11.2, Glucose 121 H, Calcium 8.7, Troponin I 0.024 Assessment/Plan All Active Problems (Last Reviewed 09/01/19 @ 12:[address] Maximiliano Kunz MD) Chest pain (Acute) Acute kidney injury (Resolved) Coffee ground emesis (Resolved) Confusion (Resolved) Hypotension (Resolved) TIA (transient ischemic attack) (Resolved) 1. Chest pain - with severely elevated BP. Multiple risk factors including prior vascular disease (PAD with stenting) heavy smoking hx (2 ppd, smoked whole life), HTN, HLD, hx TIA. CTA chest/abd shows no PE, emphysematous lungs, atelectasis, 3.69 cm AAA no dissection, kidney stones, other changes noted. Trop and EKG neg. Cycle enzymes, repeat serial EKGs. Maintain on tele. Will also check LFTs and Lipase. Consult cardiology for further cardiac workup. Hold midodrine. 2. HTN emergency - Improved at this point. PRN hydralazine. He does not appear to be on any home HTN meds per his home med list, altho per his last cardiology visit he was on Lisinopril this year. 3. CKDIII - at baseline. Received contrast, will need closely followed. If he ends up needing further contrast, we should consult his critical care physician assistant Dr. Gomez. 4. COPD - no exacerbation - CTA with emphysematous changes. Still smokes 2 ppd. Provide aerosols, IS, nicotine patch if desired. 5. Adrenal insufficiency - continue hydrocortisone. Hx orthostatic hypotension related to this. Hold midodrine. 6. PAD - prior stents per Dr. Olson. Continue pletal, plavix, statin. 7. Hx TIA 8. HLD - statin 9. Hx bladder cancer. 10. GERD - on bid PPI. DVT ppx: heparin This patient was seen by Ramana Briones PA-C under the supervision of Dr. Chan
--- NOTE | 2020-10-17 17:55 | EKG12_ITS ---
Test Reason : REPEAT Blood Pressure : / mmHG Vent. Rate : 074 BPM Atrial Rate : 074 BPM P-R Int : 154 ms QRS Dur : 106 ms QT Int : 428 ms P-R-T Axes : 060 012 055 degrees QTc Int : 475 ms Normal sinus rhythm Normal ECG Confirmed by TIM FLEMING, MELISA ([id number]), staff editor DIEGO VICTOR ([id number]) on 10/25/2020 10:11:00 AM Referred By: JAIME Confirmed By:DIOGENES DUMONT MD
[2020-10-17 18:03] LABS: AST(SGOT) 10 U/L (15-37); Alanine Aminotransfer ALT/SGPT 23 U/L (16-61); Albumin, Serum 3.1 g/dL (3.2-5.0); Alkaline Phosphatase 84 U/L (45-117); Bilirubin, Direct 0.09 mg/dL (0.00-0.30); Globulin 2.9 g/dL (2.2-4.2); Lipase 140 U/L (73-393)
--- NOTE | 2020-10-17 18:08 | NURSING ---
DR WEBER PAGED
--- NOTE | 2020-10-17 19:58 | ECHOCS_ITS ---
Reason For Study: Arrhythmia Procedure This was a 2D Doppler, Color Flow transthoracic echocardiogram. The study was technically difficult. Contrast injection was performed. Patient was unable to hold still due to severe back pain. Exam performed portable in ICU/CCU. Left Ventricle Normal LV size. Moderate concentric left ventricular hypertrophy. Left ventricular systolic function is normal. The estimated ejection fraction is 55 %. Diastolic function is indeterminate. No regional wall motion abnormalities noted. Right Ventricle Normal RV size. Normal systolic function. Atria The left atrium is mildly enlarged. Normal right atrium. No doppler evidence for ASD. Mitral Valve There is no mitral annular calcification. Normal mitral valve. Trivial mitral valve insufficiency. Tricuspid Valve Normal tricuspid valve. Trivial tricuspid valve insufficiency. Unable to estimate RV systolic pressure/pulmonary artery pressure due to technically difficult study. Aortic Valve Trisinus/trileaflet aortic valve. Normal aortic valve. Pulmonic Valve The pulmonic valve is not well visualized. Great Vessels Normal sized aortic root. Pericardium/Pleural No pericardial effusion. Medication Diluted definity 3ml given slow IV push to enhance endocardial definition. MMode/2D Measurements & Calculations LVIDd: 4.7 cm IVSd: 1.5 cm Ao root diam: 3.7 cm LVIDs: 4.3 cm LVPWd: 1.6 cm FS: 8.7 % LAV(MOD-bp): 52.6 ml LA A4 area: 19.0 cm2 RA A4 area: 13.0 cm2 LAV(MOD-bp) Indexed: 25.5 ml/m2 LAV(MOD-sp2): 57.3 ml LAV(MOD-sp4): 47.0 ml Time Measurements MV dec time: 0.19 sec Doppler Measurements & Calculations MV E max wang: 69.8 cm/sec Lat Peak E' Wang: 4.5 cm/sec Med Peak E' Wang: 5.4 cm/sec MV A max wang: 123.9 cm/sec E/E' lat: 15.5 E/E' med: 13.0 MV E/A: 0.56 MV V2 max: 137.7 cm/sec MV P1/2t max wang: 102.1 cm/sec Ao V2 max: 130.6 cm/sec MV max P.6 mmHg MV P1/2t: 64.3 msec Ao max P.8 mmHg MV V2 mean: 71.5 cm/sec MV dec slope: 465.2 cm/sec2 MV mean P.5 mmHg MV V2 VTI: 24.6 cm MVA(P1/2t): 3.4 cm2 LV V1 max: 110.5 cm/sec MR max wang: 589.4 cm/sec PA V2 max: 96.3 cm/sec LV V1 max P.9 mmHg MR max P.9 mmHg MR mean wang: 467.4 cm/sec MR mean P.7 mmHg MR VTI: 199.6 cm Interpretation Summary The study was technically difficult. Contrast injection was performed. Left ventricular systolic function is normal. The estimated ejection fraction is 55 %. Moderate concentric left ventricular hypertrophy. The left atrium is mildly enlarged. Trivial mitral valve insufficiency. Trivial tricuspid valve insufficiency. Unable to estimate RV systolic pressure/pulmonary artery pressure due to technically difficult study. Diastolic function is indeterminate. Ordering Physician: Mitzi Chan Referring Physician: Karan Talbert Performed By: Juan Kay RCS
--- NOTE | 2020-10-17 19:58 | EKG12_ITS ---
Test Reason : CP ADMISSION Blood Pressure : / mmHG Vent. Rate : 081 BPM Atrial Rate : 081 BPM P-R Int : 148 ms QRS Dur : 098 ms QT Int : 400 ms P-R-T Axes : 060 026 049 degrees QTc Int : 464 ms Normal sinus rhythm Normal ECG When compared with ECG of 17-OCT-2020 17:54, MANUAL COMPARISON REQUIRED, DATA IS UNCONFIRMED Confirmed by TIM FLEMING, MELISA ([id number]), purchase request editor CHAUNCEY OSORIO ([id number]) on 10/23/2020 9:37:39 AM Referred By: LINCOLN Confirmed By:DIOGENES DUMONT MD
--- NOTE | 2020-10-17 20:06 | PCM.CONS.C ---
Problem List (1) Chest pain Status: Acute (2) HLD (hyperlipidemia) Status: Chronic Qualifiers: Hyperlipidemia type: pure hypercholesterolemia Qualified Code(s): E78.00 - Pure hypercholesterolemia, unspecified; E78.0 - Pure hypercholesterolemia (3) Essential (primary) hypertension Status: Chronic (4) PAD (peripheral artery disease) Status: Chronic (5) Adrenal insufficiency Status: Chronic (6) Chronic kidney disease (CKD) Status: Chronic (7) Orthostatic hypotension Status: Chronic Reason for Consult Date of Consultation: 10/17/20 History of Present Illness: The patient is a 70 year old old white male with a past medical history of hyperlipidemia, hypertension, PAD status post intervention, adrenal insufficiency, chronic renal insufficiency, and a history of orthostasis who has previously been followed by Maximiliano Kunz MD of the [facility] presents for evaluation of chest and back discomfort and was found to be markedly hypertensive. According to the patient he has had chest and back discomfort in the past. However today his discomfort seems somewhat more dramatic and long-lasting. He presented to the emergency department for evaluation. He states he has not noted any obvious shortness of breath/dyspnea nor has he noted any obvious palpitations or rapid rates. He knows he has had syncope in the past which was explained by the diagnosis of adrenal insufficiency. He has been followed as an outpatient for concerns of his hypertension and his orthostatic hypotension. He states it has been very difficult to balance his blood pressures. Today based upon his symptoms he underwent evaluation in the emergency department. Troponin I level was negative. His EMS ECG appeared to demonstrate somatic/motion artifact with underlying sinus rhythm with an occasional PVC with no acute ECG changes. He had an ECG in the emergency department. He was noted to have sinus rhythm with an occasional PVC with auto nonspecific ST/T wave abnormality. As his course progress this was repeated with notation of sinus rhythm with occasional PVC. He underwent radiologic studies with a chest x-ray as well as a chest CT scan and an abdominal pelvic CT scan based upon concerns of his hypertension and his discomfort to evaluate for great vessel disease especially aortic dissection. He was found to have an abdominal aortic aneurysm of approximately 3.7 cm in diameter but no report of any aortic dissection and no thromboembolic disease. The results of his studies are noted below. He is being treated for his symptoms. He received nitroglycerin sublingual with a report of no significant change. He received narcotic analgesic therapy with fentanyl with no significant change. He was placed in the ICU based upon his hypertension for the need for additional antihypertensive therapy potentially with IV medicine such as IV nicardipine. In the ICU at this time he states his main concern is his back discomfort. He notes it is interscapular. He does not complain of ongoing shortness of breath, nausea, emesis, and he has not appeared to be diaphoretic. His blood pressure remains elevated at this time. Past Medical History Allergies/Adverse Reactions: Allergies morphine Allergy (Verified 10/17/20 15:44) HALLUCINATIONS vaccine adjuvant system, [id number] liposomal [From Shingrix (PF)] Adverse Reaction (Verified 10/17/20 15:44) Fever and skin rash varicella-zoster virus glycoprotein E, recombinant [From Shingrix (PF)] Adverse Reaction (Verified 10/17/20 15:44) Fever and skin rash Home Medications: Ambulatory Orders Medication Instructions Recorded Gabapentin [Neurontin] 400 mg PO TIDCM 10/14/18 Amitriptyline HCl [Elavil] 100 mg PO QHS 01/30/19 Cilostazol 100 mg PO BID 05/18/19 Clopidogrel Bisulfate [Plavix] 75 mg PO DAILY 05/18/19 Ipratropium/Albuterol Respimat 1 puff INHALATION DAILY 07/30/19 [Combivent Respimat Inhal [place]] Hydrocortisone [Cortef] 10 mg PO BIDCM #60 tab 08/03/19 midodrine 5 mg tablet 2.5 mg PO DAILY PRN PRN tab 04/24/20 Atorvastatin Calcium 20 mg PO QHS 10/17/20 Pantoprazole Sodium [Protonix] 40 mg PO BID 10/17/20 Past Medical History (Chronic Problems): Chronic Problems (Last Reviewed 09/01/19 @ 12:[address] Maximiliano Kunz MD) PAD (peripheral artery disease) (Chronic) Nicotine abuse (Chronic) Adrenal insufficiency (Chronic) Nicotine dependence (Chronic) Claudication in peripheral vascular disease (Chronic) Bilateral carotid artery stenosis (Chronic) Moderate (50-69%) stenosis right extracranial internal carotid. Moderate (50-69%) stenosis left extracranial internal carotid. U/S 06/2018 Left CEA 2014 Bladder cancer (Chronic) Chronic kidney disease (CKD) (Chronic) Essential (primary) hypertension (Chronic) Orthostatic hypotension (Chronic) HLD (hyperlipidemia) (Chronic) Surgical History: noncontributory, - - Hand surgery for trigger finger. Surgery on her wrist at x2. 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 Len was placed in left femur. Carotid endarterectomy. Bladder surgery for cancer. Psychiatric History: No pertinent psych hx - *Family History Maternal Family History: Family History (Last Reviewed 10/17/20 @ 17:52 by JARON Vega) Father Lung cancer Brother Throat cancer Brother Stomach cancer Mother Heart problem History Items: Heart Disease Paternal Family History: Family History (Last Reviewed 10/17/20 @ 17:52 by JARON Vega) Father Lung cancer Brother Throat cancer Brother Stomach cancer Mother Heart problem History Items: Cancer - lung Sibling Family History: Family History (Last Reviewed 10/17/20 @ 17:52 by JARON Vega) Father Lung cancer Brother Throat cancer Brother Stomach cancer Mother Heart problem History Items: Cancer - throat and stomach Lives: Spouse/ Significant Other Smoking Status: Current every day smoker Tobacco Use: Cigarettes Alcohol: None Drugs: None Review of Systems - Review of Systems General: Denies: Fever, Night Sweats, Fatigue Cardiovascular: Reports: Chest Discomfort. Denies: Shortness of Breath, Orthopnea, PND, Peripheral Edema, Palpitations, Lightheadedness, Dizziness, Near Syncope, Syncope Respiratory: Denies: Cough, Sputum Production, Hemoptysis Gastrointestinal: Denies: Hematemesis, Hematochezia, Melena Genitourinary: Denies: Dysuria, Hematuria Muscoloskeletal: Reports: Back Pain Skin: Denies: Rash Subjectve: This is a 70-year-old white male who appears to be uncomfortable with respect to his back discomfort. Objective: Vital Signs Temp Pulse Resp BP Pulse Ox 97.7 F L 77 20 H 132/49 H 94 10/17/20 19:04 10/17/20 19:04 10/17/20 19:04 10/17/20 19:04 10/17/20 19:04 Oxygen Flow Rate (L/min) 2 Oxygen Delivery Method Nasal Cannula Weight: 208 lb 4.8 oz Body Mass Index (BMI) 29.0 Finger Stick Blood Glucose 134 Intake and Output for Last 24 Hours 10/15/20 10/16/20 10/17/20 23:59 23:59 23:59 Intake Total 1000 / 1000 Balance 1000 / 1000 General: Awake, Alert, Oriented x 3, Cooperative, No Acute Distress HEENT: Atraumatic, Normocephalic, PERRL, EOMI, Sclera Non Icteric Neck: Supple, Good ROM, No JVD Lungs: Clear to auscultation Cardiovascular: Regular Rhythm, Normal S1, Normal S2 Abdomen: Bowel Sounds Present, Soft Extremities: No edema Psych/Mental Status: Appropriate 10/17/20 15:55: WBC 15.1 H, RBC 5.24, Hgb 16.6 H, Hct 50.2, MCV 95.8 H, MCH 31.7, MCHC 33.1, Plt Count 341, MPV 10.4, Immature Gran % (Auto) 0.500, Neut % (Auto) 70.5 H, Lymph % (Auto) 20.4, [place] % (Auto) 7.7, Eos % (Auto) 0.5, Baso % (Auto) 0.4, Absolute Neuts (auto) 10.7 H, Nucleated RBC % 0 10/17/20 15:55: Sodium Cancelled, Potassium Cancelled, Chloride Cancelled, Carbon Dioxide Cancelled, Anion Gap Cancelled, BUN Cancelled, Creatinine Cancelled, Est GFR (MDRD) Af Amer Cancelled, Est GFR (MDRD) Non-Af Cancelled, BUN/Creatinine Ratio Cancelled, Glucose Cancelled, Calcium Cancelled, Troponin I Cancelled 10/17/20 16:32: Sodium 140, Potassium 3.9, Chloride 109 H, Carbon Dioxide 27.0, Anion Gap 4 L, BUN 17, Creatinine 1.52 H, Est GFR (MDRD) Af Amer 58 L, Est GFR (MDRD) Non-Af 48 L, BUN/Creatinine Ratio 11.2, Glucose 121 H, Calcium 8.7, Troponin I 0.024 10/17/20 : Total Bilirubin 0.30, Direct Bilirubin 0.09 Rhythm: Sinus rhythm EKG: As noted above ECHO: 05-17-2019 Interpretation Summary Normal LV size. Moderate concentric left ventricular hypertrophy. The estimated ejection fraction is 55 %. Left ventricular systolic function is normal. Stage 1 diastolic dysfunction. Compared to prior study, there is no significant change. Stress Test: 10-29-2018 Stress Test Report Date: 10/29/2018 Procedure: Pharmacologic stress nuclear imaging study Indications: Chest pain Consent: Per the patient Procedure: The patient underwent pharmacologic (Regadenoson) evaluation with a peak heart rate of 100 beats per minute (66 predicted maximal heart rate) and a peak blood pressure of 180/98 mmHg. The baseline ECG demonstrated normal sinus rhythm. The peak pharmacologic ECG demonstrated no obvious ECG changes. There were occasional PVCs pretest, during pharmacologic infusion, and recovery. There was no complaint of chest discomfort during pharmacologic infusion or recovery. The examination was discontinued secondary to completion of protocol. Impression: 1. Pharmacologic (Regadenoson) evaluation 2. Peak pharmacologic ECG with no obvious ECG changes. 3. There were occasional PVCs pretest, during pharmacologic infusion, and recovery. 4. Nuclear images pending Myocardial perfusion imaging study: Technique: The patient was injected with 14.4 millicuries of technetium 99m Cardiolite and subsequently rest SPECT Cardiolite nuclear imaging was obtained in the horizontal long, vertical long, and short axis views. The patient underwent pharmacologic (Regadenoson) evaluation with a peak heart rate of 100 beats per minute (66 % percent predicted maximal heart rate) and a peak blood pressure of 180/98 mmHg. The patient was injected with 44.1 millicuries of technetium 99m Cardiolite and subsequently stress SPECT Cardiolite nuclear imaging was obtained in the horizontal long, vertical long, and short axis views. A gated Cardiolite study at peak stress was obtained. Interpretation: Rest and stress SPECT Cardiolite nuclear imaging status post realignment, normalization, and attenuation correction demonstrate relative uniform tracer uptake in myocardial perfusion appearing within normal limits. There is end systolic thickening and brightening. The gated Cardiolite study demonstrates myocardial thickening and inward wall motion. The reported LVEF is 61%. Impression: 1. Rest and stress SPECT Cardiolite nuclear imaging demonstrate relative uniform tracer uptake and myocardial perfusion appearing within normal limits. 2. The gated Cardiolite study reports an LVEF of 61%. Chest x-ray: IMPRESSION: Normal x-ray examination of the chest. Electronically Signed: Andrew Kimbrough MD at 18:[address] Scan: FINDINGS: Normal enhancement of the main pulmonary artery and right and left pulmonary arteries. Normal enhancement of the bilateral peripheral pulmonary arteries. There is no demonstrated pulmonary embolism. There is atherosclerotic calcification of the aortic arch with tortuosity. Heavy chronic mural thrombus and plaque is present in the descending thoracic aorta resulting in mild luminal narrowing. Mild atherosclerotic narrowing is also present at the origins of arteries of the aortic arch. There is no demonstrated aortic dissection. Normal heart size and pericardium. Normal mediastinum. Normal hilar regions. Normal visualized trachea and bronchi. Hyperinflated lungs with significant cystic emphysematous changes. Platelike atelectasis is present in the left lower lobe. No visualized pneumonic consolidation or active pulmonary edema. No pleural effusion is present. Normal pleura. Normal chest wall structures. There are degenerative changes of thoracic spine. Abdominal findings are on the CTA of the abdomen report. IMPRESSION: 1. No demonstrated pulmonary embolism or arterial dissection. 2. Hyperinflated lungs with significant cystic emphysematous changes. 3. Platelike atelectasis is present in the left lower lobe. 4. No visualized pneumonic consolidation or active pulmonary edema. No pleural effusion is present. Electronically Signed: Evert Landin MD at 16:[address] scan: FINDINGS: Abdominal aorta: A 3.69 cm infrarenal abdominal aortic aneurysm is present. A moderate amount of chronic mural thrombus and atherosclerotic plaque is present in the lumen of the aorta resulting in mild narrowing central. There are no signs of periaortic leak. There is no dissection. Celiac and superior mesenteric arteries: No demonstrated narrowing. Inferior mesenteric artery: There is moderate diffuse narrowing. Right renal artery(arteries): There is moderate narrowing at the origin of the vessel at approximately 50%. Left renal artery(arteries): There is moderate narrowing at the origin of the vessel at approximately 50%. Right common iliac artery: There is mild diffuse narrowing. Left common iliac artery: There is moderate diffuse narrowing. NONVASCULAR FINDINGS: Diffuse cystic emphysematous changes are present. Left lower lobe atelectasis noted. Normal liver. Normal gallbladder and extrahepatic biliary system. Normal spleen. Normal pancreas. Normal bilateral adrenal glands. There is moderate cortical atrophy of the right kidney, consistent with chronic medical renal disease. There is moderate cortical atrophy of the left kidney, consistent with chronic medical renal disease. Numerous stones are scattered throughout both kidneys of varying size. No demonstrated hydronephrosis. Multiple cysts are also present in both kidneys. A large cortical exophytic nonenhancing cyst is present at the superior pole and lateral aspect of the left kidney measuring 8.66 cm in diameter. Normal visualized stomach. Normal small intestine. There are multiple colonic diverticula consistent with diverticulosis. The appendix is visualized and appears normal. Normal inferior vena cava. Normal retroperitoneum. Normal abdominal wall. There are diffuse degenerative changes of the visualized lumbar spine. CT/CTA Abdomen W/WO Contrast IMPRESSION: 1. 3.69 cm abdominal aortic aneurysm 2. Moderate atherosclerotic stenosis at the origin of the bilateral renal arteries. 3. Colonic diverticulosis 4. Moderate atrophy of the kidneys and numerous bilateral kidney stones Electronically Signed: Evert Landin MD Assessment/Plan 1. Chest pain?back pain The patient has complained of a combination of chest and back discomfort. Thus far his cardiac evaluation with respect to his initial troponin I level was negative. His ECGs have demonstrated sinus rhythm with occasional PVCs with no nonspecific ST/T wave abnormality. His radiologic studies have been unremarkable for great vessel disease with respect to aortic dissection or thromboembolic disease. The etiology of his discomfort is unclear at the moment other than whether there is any relationship to his hypertension as noncardiovascular etiologies. At the moment he is being monitored. He will continue cardiac enzyme follow-up and ECG follow-up. He can be further assessed from cardiac standpoint with a transthoracic echocardiogram to evaluate for any obvious left ventricular wall motion abnormalities that would raise concerns of underlying cardiovascular disease. He will continue cardiovascular risk factor medical therapy as deemed appropriate. 2. Hyperlipidemia He will continue lipid-lowering therapy as deemed appropriate. 3. Hypertension His blood pressure is elevated. It is unclear whether this is a primary event leading to his symptoms or his blood pressure is elevated secondary to his symptoms. At the moment he will continue attempts at antihypertensive therapy to bring his blood pressure under better control. 4. Adrenal insufficiency He has a history of adrenal insufficiency. He states this contributed to his previous diagnosis of syncope. He has been evaluated and treated for this. 5. Peripheral vascular disease He has a history of peripheral vascular disease of the lower extremities. He states that he underwent evaluation care at an outside hospital which included percutaneous intervention. The details of this are unknown at this time. 6. Orthostasis He has a history of orthostatic changes which he states is supposedly related to his adrenal insufficiency. He has required therapy with Midodrine cyst with this while trying to balance concerns of hypertension. 7. Chronic renal insufficiency He also has a history of chronic renal insufficiency. This led to be taken into consideration with respect to his medical management. Comment: The patient's case has been discussed and reviewed with Dr. Chan. This note was generated using a voice recognition system and there may be incorrect words, spelling or punctuation that were not noted when reviewing the office note prior to saving.
[2020-10-17] MEDS: hydrALAZINE 20 MG/ML Vial 10 MG IV (20:19)
[2020-10-17] MEDS: Mag Hydrox/Al Hydrox/Simeth 30 ML UDC PO (20:21)
[2020-10-17] MEDS: oxyCODONE 5 MG Tablet PO (20:21)
[2020-10-17] MEDS: Acetaminophen 325 MG Tablet 650 MG PO (20:21)
[2020-10-17 20:35] LABS: Magnesium 2.2 mg/dL (1.6-2.6)
[2020-10-17] MEDS: Enoxaparin 100 MG/ML Syringe 90 MG SC (22:57)
[2020-10-17] MEDS: 0.9% Normal Saline 1,000 ML 100 ML IV (22:57)
[2020-10-17] MEDS: Amitriptyline 100 MG Tablet PO (22:58)
[2020-10-17] MEDS: Cilostazol 50 MG Tablet 100 MG PO (22:58)
[2020-10-17] MEDS: 0.9% Saline Lock 10 ML Syringe IV (22:58)
[2020-10-17] MEDS: Pantoprazole Sodium 40 MG Tablet PO (22:58)
[2020-10-17] MEDS: Atorvastatin Calcium 20 MG Tablet PO (22:59)
[2020-10-18] VITALS (23 sets, daily range): BP systolic 113–169; BP diastolic 60–120; PULSE 85–121; RESP 15–22; TEMP 36.6–37.2; O2SAT 90–100
[2020-10-18] MEDS: oxyCODONE 5 MG Tablet PO ×2 (02:16→09:43)
[2020-10-18] MEDS: Acetaminophen 325 MG Tablet 650 MG PO (02:17)
[2020-10-18 04:30] LABS: Absolute Lymphocyte Count 1.84 X10^3/uL (0.83-4.51); Absolute Neutrophil Count 10.6 X10^3/uL (2.0-7.7); Basophil# 0.04 X10^3/uL; Basophil% 0.3 % (0-1); Eosinophil# 0.02 X10^3/uL; Eosinophils% 0.1 % (0-5); Hematocrit 47.1 % (40-54); Hemoglobin 15.5 g/dL (13.0-16.5); Lymphocyte # 1.84 X10^3/ul (4.0); Mean Corp Hgb Conc 32.9 g/dL (32-36); Mean Corpuscular Hgb 31.6 pg (27.0-32.0); Mean Corpuscular Volume 96.1 fL (80-94); Mean Platelet Vol. 8.8 fl (6.2-12.0); Monocyte# 1.58 X10^3/uL; Monocyte% 11.1 % (0-10); NRBC Flagged by Analyzer 0 % (0-5); Neutrophil # 10.64 X10^3/uL (2.7-7.7); POSITIVE DIFFERENTIAL YES; Platelet Count 326 K/mm3 (150-450); RBC Distribution Width CV 13.2 % (11.6-14.6); RBC Distribution Width SD 47.6 fl (35.1-43.9); White Blood Count 14.2 K/mm3 (4.4-11.0)
[2020-10-18 04:32] LABS: Differential Indicated SCAN CRITERIA MET
[2020-10-18 04:42] LABS: International Normalized Ratio 0.9
[2020-10-18 04:43] LABS: Partial Thromboplast Time 36.8 Seconds (24.1-36.2)
[2020-10-18 04:47] LABS: AST(SGOT) 12 U/L (15-37); Alanine Aminotransfer ALT/SGPT 25 U/L (16-61); Albumin, Serum 3.3 g/dL (3.2-5.0); Alkaline Phosphatase 90 U/L (45-117); Anion Gap 4 (5-15); BUN 15 mg/dL (7-18); BUN/Creat Ratio 10.8 RATIO (10-20); Calcium,Total 8.7 mg/dL (8.5-10.1); Chloride 107 mmol/L (98-107); Cholesterol 175 mg/dL (200); Creatinine, Serum 1.39 mg/dL (0.70-1.30); EST Glomerular Filtration Rate 54 mL/min (>60); Est Glom Filt Rate - Afr Amer 65 mL/min (>60); Estimated Creatinine Clearance 51.92 ml/min; Globulin 3.3 g/dL (2.2-4.2); Glucose 118 mg/dL (74-106); High Density Lipoprotein 56 mg/dL; Protein, Total 6.6 g/dL (6.4-8.2); Sodium Level 141 mmol/L (136-145); Triglycerides 129 mg/dL; Very Low Density Lipoprotein 26 mg/dL (5-40)
[2020-10-18] MEDS: 0.9% Saline Lock 10 ML Syringe IV ×2 (04:52→16:33)
--- NOTE | 2020-10-18 05:55 | EKG12_ITS ---
Test Reason : CHEST PAIN Blood Pressure : / mmHG Vent. Rate : 096 BPM Atrial Rate : 096 BPM P-R Int : 134 ms QRS Dur : 082 ms QT Int : 354 ms P-R-T Axes : 002 027 049 degrees QTc Int : 447 ms Normal sinus rhythm Nonspecific ST and T wave abnormality Abnormal ECG Confirmed by TIM FLEMING, MELISA ([id number]), editorial director DIEGO VICTOR ([id number]) on 10/25/2020 10:03:30 AM Referred By: JAIME Confirmed By:DIOGENES DUMONT MD
[2020-10-18] MEDS: Ipratropium/Albuterol Sulfate 3 ML AMPUL.NEB INHALATION ×3 (06:52→20:26)
--- NOTE | 2020-10-18 07:23 | PCM.PN.HOSP ---
Patient Problems: Active and Suspected Problems (Last Reviewed 09/01/19 @ 12:[address] Maximiliano Kunz MD) Chest pain (Acute) Objective: Patient was admitted in ICU with chest pain with high blood pressure with suspicion of unstable angina consistent with hypertensive emergency. History of peripheral arterial disease status post stents, TIA, and other high risk factors including hypertension, dyslipidemia and bladder cancer Troponins are negative. Blood pressure is controlled. Seen by quilting machine helper Vitals/I&O's: Vital Signs Temp Pulse Resp BP Pulse Ox 98.2 F 91 15 128/101 H 94 10/18/20 04:00 10/18/20 07:00 10/18/20 07:00 10/18/20 07:00 10/18/20 07:00 Oxygen Flow Rate (L/min) 2 Oxygen Delivery Method Nasal Cannula Weight: 189 lb 11.2 oz Body Mass Index (BMI) 27.3 Finger Stick Blood Glucose 134 Intake and Output for Last 24 Hours 10/16/20 10/17/20 10/18/20 23:59 23:59 23:59 Intake Total 1100 / 1100 220 / 220 Output Total 700 / 700 500 / 500 Balance 400 / 400 -280 / -280 Laboratory Results 10/17/20 15:55: WBC 15.1 H, RBC 5.24, Hgb 16.6 H, Hct 50.2, MCV 95.8 H, MCH 31.7, MCHC 33.1, RDW Std Deviation 50.0 H, RDW Coeff of Rueprto 15.2 H, Plt Count 341, MPV 10.4, Immature Gran % (Auto) 0.500, Neut % (Auto) 70.5 H, Lymph % (Auto) 20.4, [place] % (Auto) 7.7, Eos % (Auto) 0.5, Baso % (Auto) 0.4, Absolute Neuts (auto) 10.7 H, Absolute Lymphs (auto) 3.08, Nucleated RBC % 0 10/17/20 15:55: Sodium Cancelled, Potassium Cancelled, Chloride Cancelled, Carbon Dioxide Cancelled, Anion Gap Cancelled, BUN Cancelled, Creatinine Cancelled, Estim Creat Clear Calc Cancelled, Est GFR (MDRD) Af Amer Cancelled, Est GFR (MDRD) Non-Af Cancelled, BUN/Creatinine Ratio Cancelled, Glucose Cancelled, Calcium Cancelled, Troponin I Cancelled 10/17/20 16:32: Sodium 140, Potassium 3.9, Chloride 109 H, Carbon Dioxide 27.0, Anion Gap 4 L, BUN 17, Creatinine 1.52 H, Estim Creat Clear Calc 47.48, Est GFR (MDRD) Af Amer 58 L, Est GFR (MDRD) Non-Af 48 L, BUN/Creatinine Ratio 11.2, Glucose 121 H, Calcium 8.7, Troponin I 0.024 10/17/20 20:10: Magnesium 2.2 10/17/20 20:10: Troponin I < 0.015 10/17/20 23:05: Troponin I 0.022 10/17/20 : Total Bilirubin 0.30, Direct Bilirubin 0.09, AST 10 L, ALT 23, Alkaline Phosphatase 84, Total Protein 6.0 L, Albumin 3.1 L, Globulin 2.9, Lipase 140 10/18/20 04:20: WBC 14.2 H, RBC 4.90, Hgb 15.5, Hct 47.1, MCV 96.1 H, MCH 31.6, MCHC 32.9, RDW Std Deviation 47.6 H, RDW Coeff of Ruperto 13.2, Plt Count 326, MPV 8.8, Immature Gran % (Auto) 0.500, Neut % (Auto) 75.0 H, Lymph % (Auto) 13.0 L, [place] % (Auto) 11.1 H, Eos % (Auto) 0.1, Baso % (Auto) 0.3, Absolute Neuts (auto) 10.6 H, Absolute Lymphs (auto) 1.84, Nucleated RBC % 0, Diff Path Review March10/18/20 04:20: PT 12.0, INR 0.9, APTT 36.8 H 10/18/20 04:20: Sodium 141, Potassium 4.0, Chloride 107, Carbon Dioxide 30.0, Anion Gap 4 L, BUN 15, Creatinine 1.39 H, Estim Creat Clear Calc 51.92, Est GFR (MDRD) Af Amer 65, Est GFR (MDRD) Non-Af 54 L, BUN/Creatinine Ratio 10.8, Glucose 118 H, Calcium 8.7, Total Bilirubin 0.30, AST 12 L, ALT 25, Alkaline Phosphatase 90, Total Protein 6.6, Albumin 3.3, Globulin 3.3, Albumin/Globulin Ratio 1.0, Triglycerides 129, Cholesterol 175, LDL Cholesterol 93, VLDL Cholesterol 26, HDL Cholesterol 56 Current Medications Acetaminophen (Acetaminophen 325 Mg Tablet) 650 mg PO Q6H PRN PRN PRN Reason: Pain Score 1-10/Temp > 100.7 F Last Admin: 10/18/20 02:17 Dose: 650 mg Documented by: Al Hydroxide/Mg Hydroxide (Mag Hydrox/Al Hydrox/Simeth 30 Ml Udc) 30 ml PO Q6H PRN PRN PRN Reason: Gastric Burning Last Admin: 10/17/20 20:21 Dose: 30 ml Documented by: Albuterol Sulfate (Albuterol 2.5 Mg/3 Ml Vial.Neb.) 2.5 mg INHALATION Q2H PRN PRN PRN Reason: Dyspnea, wheezing Albuterol/Ipratropium (Ipratropium/Albuterol Sulfate 3 Ml Ampul.Neb) 3 ml INHALATION Q6HWA.RT [facility] Last Admin: 10/18/20 06:52 Dose: 3 ml Documented by: Amitriptyline HCl (Amitriptyline 100 Mg Tablet) 100 mg PO QHS [facility] Last Admin: 10/17/20 22:58 Dose: 100 mg Documented by: Atorvastatin Calcium (Atorvastatin Calcium 20 Mg Tablet) 20 mg PO QHS [facility] Last Admin: 10/17/20 22:59 Dose: 20 mg Documented by: Cilostazol (Cilostazol 50 Mg Tablet) 100 mg PO BID [facility] Last Admin: 10/17/20 22:58 Dose: 100 mg Documented by: Clopidogrel Bisulfate (Clopidogrel Bisulfate 75 Mg Tablet) 75 mg PO DAILY [facility] Enoxaparin Sodium (Enoxaparin 100 Mg/Ml Syringe) 90 mg SC Q12 [facility] Last Admin: 10/17/20 22:57 Dose: 90 mg Documented by: Gabapentin (Gabapentin 400 Mg Capsule) 400 mg PO TIDCM [facility] Guaifenesin (Guaifenesin 10 Ml Udc (200mg/10ml)) 10 ml PO Q4H PRN PRN PRN Reason: COUGH Hydralazine HCl (Hydralazine 20 Mg/Ml Vial) 10 mg IV Q4H PRN PRN PRN Reason: SBP > 160 Last Admin: 10/17/20 20:19 Dose: 10 mg Documented by: Hydrocortisone ([facility] 10 Mg Tablet) [facility] Sodium Chloride () 1,000 mls @ 100 mls/hr IV .Q10H [facility] Last Admin: 10/18/20 05:44 Dose: Not Given Documented by: Nicardipine HCl 25 mg/ Sodium (Chloride) 250 mls @ 50 mls/hr CONT INF .Q5H [facility]; Protocol Last Admin: 10/18/20 05:25 Dose: Not Given Documented by: Magnesium Hydroxide (Magnesium Hydroxide 30 Ml Udc) 30 ml PO DAILY PRN PRN PRN Reason: Constipation Melatonin (Melatonin 3 Mg Tablet) 3 mg PO QHS PRN PRN PRN Reason: INSOMNIA Morphine Sulfate (Morphine 2 Mg/Ml Syringe) 2 mg IV Q3H PRN PRN PRN Reason: Pain Score 6-10 Nitroglycerin (Nitroglycerin (Inpatient Use) 0.4 Mg Tab.Subl) 0.4 mg SUBLINGUAL Q5M PRN PRN Reason: CARDIAC/CHEST PAIN Ondansetron HCl (Ondansetron 4 Mg/2 Ml Vial) 4 mg IV Q8H PRN PRN PRN Reason: NAUSEA/VOMITING Oxycodone HCl (Oxycodone 5 Mg Tablet) 5 mg PO Q4H PRN PRN PRN Reason: Pain Score 4-5 Last Admin: 10/18/20 02:16 Dose: 5 mg Documented by: Pantoprazole Sodium (Pantoprazole Sodium 40 Mg Tablet) 40 mg PO BID [facility] Last Admin: 10/17/20 22:58 Dose: 40 mg Documented by: Prochlorperazine Edisylate (Prochlorperazine 10 Mg/2 Ml Vial) 5 mg IV Q4H PRN PRN PRN Reason: Breakthrough Nausea/Vomiting Psyllium Hydrophilic Mucilloid (Psyllium 1 Packet) 1 packet PO DAILY PRN PRN PRN Reason: Constipation Senna/Docusate Sodium (Senna/Docusate Sodium 1 Tablet) 2 tablet PO BID PRN PRN Reason: Constipation Sodium Chloride (0.9% Saline Lock 10 Ml Syringe) 10 - 40 ml IV UD PRN PRN Reason: SALINE FLUSH Last Admin: 10/18/20 04:52 Dose: 10 ml Documented by: Throat Lozenges (Benzocaine/Menthol 1 Lozenge) 1 lozenge MUCOUS MEM Q2H PRN PRN PRN Reason: SORE THROAT STROKE Vital Signs/Narrative: Vital Signs Temp Pulse Resp BP Pulse Ox 10/18/20 07:00 91 15 128/101 H 94 10/18/20 06:52 86 16 91 10/18/20 06:00 89 18 142/93 H 91 10/18/20 05:00 89 20 H 135/61 H 92 10/18/20 04:00 98.2 F 90 18 113/88 H 93 10/18/20 03:41 97 Medical Necessity - Tobacco Use Smoking Status: Current every day smoker Tobacco Use: Cigarettes Assessment/Plan All Active Problems (Last Reviewed 09/01/19 @ 12:[address] Maximiliano Kunz MD) Chest pain (Acute) Acute kidney injury (Resolved) Coffee ground emesis (Resolved) Confusion (Resolved) Hypotension (Resolved) TIA (transient ischemic attack) (Resolved)
[2020-10-18] MEDS: Gabapentin 400 MG Capsule PO ×3 (09:43→16:35)
[2020-10-18] MEDS: Hydrocortisone 10 MG Tablet PO ×2 (09:45→16:35)
[2020-10-18] MEDS: cycloBENZAPRine HCl 10 MG Tablet PO (11:25)
[2020-10-18] MEDS: Clopidogrel Bisulfate 75 MG Tablet PO (11:26)
[2020-10-18] MEDS: Cilostazol 50 MG Tablet 100 MG PO ×2 (11:26→20:26)
[2020-10-18] MEDS: 0.9% Normal Saline 1,000 ML 100 ML IV (11:26)
[2020-10-18] MEDS: Pantoprazole Sodium 40 MG Tablet PO ×2 (11:26→20:26)
[2020-10-18] MEDS: Enoxaparin 100 MG/ML Syringe 90 MG SC ×2 (11:29→20:26)
--- NOTE | 2020-10-18 12:29 | PCM.PN.HOSP ---
<Ramana Briones - Last Filed: 10/18/20 12:29> Patient Problems: Active and Suspected Problems (Last Reviewed 09/01/19 @ 12:[address] Maximiliano Kuzn MD) Chest pain (Acute) Reason for Visit: Chest pain, back pain, HTN Subjective: No chest pain. Pt complains of back pain between the shoulders. No SOB, palp, LH, dizziness, Edema. Vitals/I&O's: Vital Signs Temp Pulse Resp BP Pulse Ox 98.8 F 90 20 H 151/95 H 92 10/18/20 10:54 10/18/20 11:00 10/18/20 10:54 10/18/20 10:54 10/18/20 10:54 Oxygen Flow Rate (L/min) 2 Oxygen Delivery Method Nasal Cannula Weight: 189 lb 11.183 oz Body Mass Index (BMI) 27.3 Finger Stick Blood Glucose 134 Intake and Output for Last 24 Hours 10/16/20 10/17/20 10/18/20 23:59 23:59 23:59 Intake Total 1100 / 1100 1220 / 1220 Output Total 700 / 700 900 / 900 Balance 400 / 400 320 / 320 General: Alert, Oriented x3, Cooperative HEENT: Atraumatic, PERRLA, EOMI, Normocephalic Neck: Supple, No JVD, Negative Carotid Bruits Lungs: Clear to auscultation, Normal air movement Cardiovascular: Regular rate, No murmurs Abdomen: Bowel Sounds Present, Soft, Non Tender Extremities: No edema, Capillary Refill Less than 3 Seconds Skin: No rashes, No breakdown Musculoskeletal: No Tenderness to Palpation of Joints or Extremities Neurological: Cranial nerves II-XII grossly intact Psych/Mental Status: Normal Affect, Appropriate, Alert and oriented to time, place, person, mood and affect Laboratory Results 10/17/20 15:55: WBC 15.1 H, RBC 5.24, Hgb 16.6 H, Hct 50.2, MCV 95.8 H, MCH 31.7, MCHC 33.1, RDW Std Deviation 50.0 H, RDW Coeff of Ruperto 15.2 H, Plt Count 341, MPV 10.4, Immature Gran % (Auto) 0.500, Neut % (Auto) 70.5 H, Lymph % (Auto) 20.4, Slope % (Auto) 7.7, Eos % (Auto) 0.5, Baso % (Auto) 0.4, Absolute Neuts (auto) 10.7 H, Absolute Lymphs (auto) 3.08, Nucleated RBC % 0 10/17/20 15:55: Sodium Cancelled, Potassium Cancelled, Chloride Cancelled, Carbon Dioxide Cancelled, Anion Gap Cancelled, BUN Cancelled, Creatinine Cancelled, Estim Creat Clear Calc Cancelled, Est GFR (MDRD) Af Amer Cancelled, Est GFR (MDRD) Non-Af Cancelled, BUN/Creatinine Ratio Cancelled, Glucose Cancelled, Calcium Cancelled, Troponin I Cancelled 10/17/20 16:32: Sodium 140, Potassium 3.9, Chloride 109 H, Carbon Dioxide 27.0, Anion Gap 4 L, BUN 17, Creatinine 1.52 H, Estim Creat Clear Calc 47.48, Est GFR (MDRD) Af Amer 58 L, Est GFR (MDRD) Non-Af 48 L, BUN/Creatinine Ratio 11.2, Glucose 121 H, Calcium 8.7, Troponin I 0.024 10/17/20 20:10: Magnesium 2.2 10/17/20 20:10: Troponin I < 0.015 10/17/20 23:05: Troponin I 0.022 10/17/20 : Total Bilirubin 0.30, Direct Bilirubin 0.09, AST 10 L, ALT 23, Alkaline Phosphatase 84, Total Protein 6.0 L, Albumin 3.1 L, Globulin 2.9, Lipase 140 10/18/20 04:20: WBC 14.2 H, RBC 4.90, Hgb 15.5, Hct 47.1, MCV 96.1 H, MCH 31.6, MCHC 32.9, RDW Std Deviation 47.6 H, RDW Coeff of Ruperto 13.2, Plt Count 326, MPV 8.8, Immature Gran % (Auto) 0.500, Neut % (Auto) 75.0 H, Lymph % (Auto) 13.0 L, Slope % (Auto) 11.1 H, Eos % (Auto) 0.1, Baso % (Auto) 0.3, Absolute Neuts (auto) 10.6 H, Absolute Lymphs (auto) 1.84, Nucleated RBC % 0, Diff Path Review March10/18/20 04:20: PT 12.0, INR 0.9, APTT 36.8 H 10/18/20 04:20: Sodium 141, Potassium 4.0, Chloride 107, Carbon Dioxide 30.0, Anion Gap 4 L, BUN 15, Creatinine 1.39 H, Estim Creat Clear Calc 51.92, Est GFR (MDRD) Af Amer 65, Est GFR (MDRD) Non-Af 54 L, BUN/Creatinine Ratio 10.8, Glucose 118 H, Calcium 8.7, Total Bilirubin 0.30, AST 12 L, ALT 25, Alkaline Phosphatase 90, Total Protein 6.6, Albumin 3.3, Globulin 3.3, Albumin/Globulin Ratio 1.0, Triglycerides 129, Cholesterol 175, LDL Cholesterol 93, VLDL Cholesterol 26, HDL Cholesterol 56 Current Medications Acetaminophen (Acetaminophen 325 Mg Tablet) 650 mg PO Q6H PRN PRN PRN Reason: Pain Score 1-10/Temp > 100.7 F Last Admin: 10/18/20 02:17 Dose: 650 mg Documented by: Al Hydroxide/Mg Hydroxide (Mag Hydrox/Al Hydrox/Simeth 30 Ml Udc) 30 ml PO Q6H PRN PRN PRN Reason: Gastric Burning Last Admin: 10/17/20 20:21 Dose: 30 ml Documented by: Albuterol Sulfate (Albuterol 2.5 Mg/3 Ml Vial.Neb.) 2.5 mg INHALATION Q2H PRN PRN PRN Reason: Dyspnea, wheezing Albuterol/Ipratropium (Ipratropium/Albuterol Sulfate 3 Ml Ampul.Neb) 3 ml INHALATION Q6HWA.RT [facility] Last Admin: 10/18/20 06:52 Dose: 3 ml Documented by: Amitriptyline HCl (Amitriptyline 100 Mg Tablet) 100 mg PO QHS [facility] Last Admin: 10/17/20 22:58 Dose: 100 mg Documented by: Atorvastatin Calcium (Atorvastatin Calcium 20 Mg Tablet) 20 mg PO QHS [facility] Last Admin: 10/17/20 22:59 Dose: 20 mg Documented by: Cilostazol (Cilostazol 50 Mg Tablet) 100 mg PO BID [facility] Last Admin: 10/18/20 11:26 Dose: 100 mg Documented by: Clopidogrel Bisulfate (Clopidogrel Bisulfate 75 Mg Tablet) 75 mg PO DAILY [facility] Last Admin: 10/18/20 11:26 Dose: 75 mg Documented by: Cyclobenzaprine HCl (Cyclobenzaprine Hcl 10 Mg Tablet) 10 mg PO TID PRN PRN PRN Reason: MUSCLE SPASM Last Admin: 10/18/20 11:25 Dose: 10 mg Documented by: Enoxaparin Sodium (Enoxaparin 100 Mg/Ml Syringe) 90 mg SC Q12 [facility] Last Admin: 10/18/20 11:29 Dose: 90 mg Documented by: Gabapentin (Gabapentin 400 Mg Capsule) 400 mg PO TIDCM [facility] Last Admin: 10/18/20 11:26 Dose: 400 mg Documented by: Guaifenesin (Guaifenesin 10 Ml Udc (200mg/10ml)) 10 ml PO Q4H PRN PRN PRN Reason: COUGH Hydralazine HCl (Hydralazine 20 Mg/Ml Vial) 10 mg IV Q4H PRN PRN PRN Reason: SBP > 160 Last Admin: 10/17/20 20:19 Dose: 10 mg Documented by: Hydrocortisone (Hydrocortisone 10 Mg Tablet) 10 mg PO BIDCM [facility] Last Admin: 10/18/20 09:45 Dose: 10 mg Documented by: Sodium Chloride () 1,000 mls @ 100 mls/hr IV .Q10H [facility] Last Admin: 10/18/20 11:26 Dose: 100 mls/hr Documented by: Magnesium Hydroxide (Magnesium Hydroxide 30 Ml Udc) 30 ml PO DAILY PRN PRN PRN Reason: Constipation Melatonin (Melatonin 3 Mg Tablet) 3 mg PO QHS PRN PRN PRN Reason: INSOMNIA Morphine Sulfate (Morphine 2 Mg/Ml Syringe) 2 mg IV Q3H PRN PRN PRN Reason: Pain Score 6-10 Nitroglycerin (Nitroglycerin (Inpatient Use) 0.4 Mg Tab.Subl) 0.4 mg SUBLINGUAL Q5M PRN PRN Reason: CARDIAC/CHEST PAIN Ondansetron HCl (Ondansetron 4 Mg/2 Ml Vial) 4 mg IV Q8H PRN PRN PRN Reason: NAUSEA/VOMITING Oxycodone HCl (Oxycodone 5 Mg Tablet) 5 mg PO Q4H PRN PRN PRN Reason: Pain Score 4-5 Last Admin: 10/18/20 09:43 Dose: 5 mg Documented by: Pantoprazole Sodium (Pantoprazole Sodium 40 Mg Tablet) 40 mg PO BID [facility] Last Admin: 10/18/20 11:26 Dose: 40 mg Documented by: Prochlorperazine Edisylate (Prochlorperazine 10 Mg/2 Ml Vial) 5 mg IV Q4H PRN PRN PRN Reason: Breakthrough Nausea/Vomiting Psyllium Hydrophilic Mucilloid (Psyllium 1 Packet) 1 packet PO DAILY PRN PRN PRN Reason: Constipation Senna/Docusate Sodium (Senna/Docusate Sodium 1 Tablet) 2 tablet PO BID PRN PRN Reason: Constipation Sodium Chloride (0.9% Saline Lock 10 Ml Syringe) 10 - 40 ml IV UD PRN PRN Reason: SALINE FLUSH Last Admin: 10/18/20 04:52 Dose: 10 ml Documented by: Throat Lozenges (Benzocaine/Menthol 1 Lozenge) 1 lozenge MUCOUS MEM Q2H PRN PRN PRN Reason: SORE THROAT STROKE Vital Signs/Narrative: Vital Signs Temp Pulse Resp BP Pulse Ox 10/18/20 11:00 90 10/18/20 10:54 98.8 F 90 20 H 151/95 H 92 10/18/20 09:00 91 22 H 92 Medical Necessity - Tobacco Use Smoking Status: Current every day smoker Tobacco Use: Cigarettes Assessment/Plan All Active Problems (Last Reviewed 09/01/19 @ 12:[address] Maximiliano Kunz MD) Chest pain (Acute) Acute kidney injury (Resolved) Coffee ground emesis (Resolved) Confusion (Resolved) Hypotension (Resolved) TIA (transient ischemic attack) (Resolved) 1. Chest pain - chest pain resolved. Now all back pain. Unclear if HTN is due to pain or if HTN lead to the chest pain. Cardiology following. Off nicardipine. I have started him on flexeril for his back pain. If this is effective then it is less likely that this is cardiac in etiology. It is unclear at this point. -Trop neg x3. -No acute ischemic changes on ekg -lipase and LFTs ok -CTA chest/abd without acute process. -hold midodrine -prn hydralazine 2. HTN emergency - as above. 3. CKDIII - stable Received contrast, will need closely followed. If he ends up needing further contrast, we should consult his bellows tester Dr. Gomez. 4. COPD - no exacerbation - CTA with emphysematous changes. Still smokes 2 ppd. Provide aerosols, IS, nicotine patch if desired. Plan for pulmonary referral as outpatient. 5. Adrenal insufficiency - continue hydrocortisone. Hx orthostatic hypotension related to this. Hold midodrine. 6. PAD - prior stents per Dr. Olson. Continue pletal, plavix, statin. 7. Hx TIA 8. HLD - statin 9. Hx bladder cancer. 10. GERD - on bid PPI. DVT ppx: heparin This patient was seen by Ramana Briones PA-C under the supervision of Dr. Curry <Eric Curry - Last Filed: 10/18/20 16:46> Reason for Visit: Follow-up on chest pain, hypertensive emergency. Objective: Patient was admitted in ICU with chest pain with high blood pressure with suspicion of unstable angina consistent with hypertensive emergency. History of peripheral arterial disease status post stents, TIA, and other high risk factors including hypertension, dyslipidemia and bladder cancer Troponins are negative. Blood pressure is controlled. Seen by undercoat sprayer Vitals/I&O's: Vital Signs Temp Pulse Resp BP Pulse Ox 98.5 F 95 20 H 169/101 H 96 10/18/20 16:37 10/18/20 16:37 10/18/20 16:37 10/18/20 16:37 10/18/20 16:40 Oxygen Flow Rate (L/min) 2 Oxygen Delivery Method Nasal Cannula Weight: 189 lb 11.183 oz Body Mass Index (BMI) 27.3 Finger Stick Blood Glucose 134 Intake and Output for Last 24 Hours 10/16/20 10/17/20 10/18/20 23:59 23:59 23:59 Intake Total 1100 / 1100 1220 / 1220 Output Total 700 / 700 1200 / 1200 Balance 400 / 400 Laboratory Results 10/17/20 16:32: Sodium 140, Potassium 3.9, Chloride 109 H, Carbon Dioxide 27.0, Anion Gap 4 L, BUN 17, Creatinine 1.52 H, Estim Creat Clear Calc 47.48, Est GFR (MDRD) Af Amer 58 L, Est GFR (MDRD) Non-Af 48 L, BUN/Creatinine Ratio 11.2, Glucose 121 H, Calcium 8.7, Troponin I 0.024 10/17/20 20:10: Magnesium 2.2 10/17/20 20:10: Troponin I < 0.015 10/17/20 23:05: Troponin I 0.022 10/17/20 : Total Bilirubin 0.30, Direct Bilirubin 0.09, AST 10 L, ALT 23, Alkaline Phosphatase 84, Total Protein 6.0 L, Albumin 3.1 L, Globulin 2.9, Lipase 140 10/18/20 04:20: WBC 14.2 H, RBC 4.90, Hgb 15.5, Hct 47.1, MCV 96.1 H, MCH 31.6, MCHC 32.9, RDW Std Deviation 47.6 H, RDW Coeff of Ruperto 13.2, Plt Count 326, MPV 8.8, Immature Gran % (Auto) 0.500, Neut % (Auto) 75.0 H, Lymph % (Auto) 13.0 L, Slope % (Auto) 11.1 H, Eos % (Auto) 0.1, Baso % (Auto) 0.3, Absolute Neuts (auto) 10.6 H, Absolute Lymphs (auto) 1.84, Nucleated RBC % 0, Diff Path Review Reviewed 10/18/20 04:20: PT 12.0, INR 0.9, APTT 36.8 H 10/18/20 04:20: Sodium 141, Potassium 4.0, Chloride 107, Carbon Dioxide 30.0, Anion Gap 4 L, BUN 15, Creatinine 1.39 H, Estim Creat Clear Calc 51.92, Est GFR (MDRD) Af Amer 65, Est GFR (MDRD) Non-Af 54 L, BUN/Creatinine Ratio 10.8, Glucose 118 H, Calcium 8.7, Total Bilirubin 0.30, AST 12 L, ALT 25, Alkaline Phosphatase 90, Total Protein 6.6, Albumin 3.3, Globulin 3.3, Albumin/Globulin Ratio 1.0, Triglycerides 129, Cholesterol 175, LDL Cholesterol 93, VLDL Cholesterol 26, HDL Cholesterol 56 Current Medications Acetaminophen (Acetaminophen 325 Mg Tablet) 650 mg PO Q6H PRN PRN PRN Reason: Pain Score 1-10/Temp > 100.7 F Last Admin: 10/18/20 02:17 Dose: 650 mg Documented by: Al Hydroxide/Mg Hydroxide (Mag Hydrox/Al Hydrox/Simeth 30 Ml Udc) 30 ml PO Q6H PRN PRN PRN Reason: Gastric Burning Last Admin: 10/18/20 16:34 Dose: 30 ml Documented by: Albuterol Sulfate (Albuterol 2.5 Mg/3 Ml Vial.Neb.) 2.5 mg INHALATION Q2H PRN PRN PRN Reason: Dyspnea, wheezing Albuterol/Ipratropium (Ipratropium/Albuterol Sulfate 3 Ml Ampul.Neb) 3 ml INHALATION Q6HWA.RT [facility] Last Admin: 10/18/20 12:57 Dose: 3 ml Documented by: Amitriptyline HCl (Amitriptyline 100 Mg Tablet) 100 mg PO QHS [facility] Last Admin: 10/17/20 22:58 Dose: 100 mg Documented by: Atorvastatin Calcium (Atorvastatin Calcium 20 Mg Tablet) 20 mg PO QHS [facility] Last Admin: 10/17/20 22:59 Dose: 20 mg Documented by: Cilostazol (Cilostazol 50 Mg Tablet) 100 mg PO BID [facility] Last Admin: 10/18/20 11:26 Dose: 100 mg Documented by: Clopidogrel Bisulfate (Clopidogrel Bisulfate 75 Mg Tablet) 75 mg PO DAILY [facility] Last Admin: 10/18/20 11:26 Dose: 75 mg Documented by: Cyclobenzaprine HCl (Cyclobenzaprine Hcl 10 Mg Tablet) 10 mg PO TID PRN PRN PRN Reason: MUSCLE SPASM Last Admin: 10/18/20 11:25 Dose: 10 mg Documented by: Enoxaparin Sodium (Enoxaparin 100 Mg/Ml Syringe) 90 mg SC Q12 [facility] Last Admin: 10/18/20 11:29 Dose: 90 mg Documented by: Gabapentin (Gabapentin 400 Mg Capsule) 400 mg PO TIDCM [facility] Last Admin: 10/18/20 16:35 Dose: 400 mg Documented by: Guaifenesin (Guaifenesin 10 Ml Udc (200mg/10ml)) 10 ml PO Q4H PRN PRN PRN Reason: COUGH Hydralazine HCl (Hydralazine 20 Mg/Ml Vial) 10 mg IV Q4H PRN PRN PRN Reason: SBP > 160 Last Admin: 10/17/20 20:19 Dose: 10 mg Documented by: Hydrocortisone (Hydrocortisone 10 Mg Tablet) 10 mg PO BIDCM [facility] Last Admin: 10/18/20 16:35 Dose: 10 mg Documented by: Sodium Chloride () 1,000 mls @ 100 mls/hr IV .Q10H [facility] Last Admin: 10/18/20 11:26 Dose: 100 mls/hr Documented by: Magnesium Hydroxide (Magnesium Hydroxide 30 Ml Udc) 30 ml PO DAILY PRN PRN PRN Reason: Constipation Melatonin (Melatonin 3 Mg Tablet) 3 mg PO QHS PRN PRN PRN Reason: INSOMNIA Morphine Sulfate (Morphine 2 Mg/Ml Syringe) 2 mg IV Q3H PRN PRN PRN Reason: Pain Score 6-10 Last Admin: 10/18/20 16:31 Dose: 2 mg Documented by: Nitroglycerin (Nitroglycerin (Inpatient Use) 0.4 Mg Tab.Subl) 0.4 mg SUBLINGUAL Q5M PRN PRN Reason: CARDIAC/CHEST PAIN Ondansetron HCl (Ondansetron 4 Mg/2 Ml Vial) 4 mg IV Q8H PRN PRN PRN Reason: NAUSEA/VOMITING Oxycodone HCl (Oxycodone 5 Mg Tablet) 5 mg PO Q4H PRN PRN PRN Reason: Pain Score 4-5 Last Admin: 10/18/20 09:43 Dose: 5 mg Documented by: Pantoprazole Sodium (Pantoprazole Sodium 40 Mg Tablet) 40 mg PO BID [facility] Last Admin: 10/18/20 11:26 Dose: 40 mg Documented by: Prochlorperazine Edisylate (Prochlorperazine 10 Mg/2 Ml Vial) 5 mg IV Q4H PRN PRN PRN Reason: Breakthrough Nausea/Vomiting Psyllium Hydrophilic Mucilloid (Psyllium 1 Packet) 1 packet PO DAILY PRN PRN PRN Reason: Constipation Senna/Docusate Sodium (Senna/Docusate Sodium 1 Tablet) 2 tablet PO BID PRN PRN Reason: Constipation Sodium Chloride (0.9% Saline Lock 10 Ml Syringe) 10 - 40 ml IV UD PRN PRN Reason: SALINE FLUSH Last Admin: 10/18/20 16:33 Dose: 10 ml Documented by: Throat Lozenges (Benzocaine/Menthol 1 Lozenge) 1 lozenge MUCOUS MEM Q2H PRN PRN PRN Reason: SORE THROAT STROKE Vital Signs/Narrative: Vital Signs Temp Pulse Resp BP Pulse Ox 10/18/20 16:40 96 10/18/20 16:37 98.5 F 95 20 H 169/101 H 96 10/18/20 15:27 97 10/18/20 12:57 95 16 Assessment/Plan This patient was seen in conjunction with Ramana SALMERON. I have independently interviewed and examined the patient and reviewed pertinent history, examination findings, laboratory and plan of management. I have reviewed the note and agree with the documented findings with the few additional points. In brief, patient is 69-year-old gentleman with history of peripheral arterial disease, bilateral carotid artery disease admitted with chest pain and high blood pressure. Patient was put on nicardipine drip and admitted in ICU on 10/17 and transferred to PCU on 10/18/2020. EKG showed no acute ischemic changes. Serial troponin enzymes negative. CTA chest and abdomen no acute abnormality but 3.69 abdominal aortic aneurysm with moderate atherosclerotic stenosis at the origin of bilateral renal arteries. Moderate atrophy of kidneys with numerous bilateral kidney stones. Patient also has history of bladder cancer, chronic adrenal insufficiency and CKD stage III. Patient received IV contrast. Currently on IV fluid normal saline to prevent or decrease risk of JOSHUA. Other comorbidities as mentioned above I have discussed my assessment with Ramana SALMERON and orders have been reviewed. Clinical Impression(s) from Imaging Studies Chest CTA 10/17/20 15:56 IMPRESSION: 1. 3.69 cm abdominal aortic aneurysm 2. Moderate atherosclerotic stenosis at the origin of the bilateral renal arteries. 3. Colonic diverticulosis 4. Moderate atrophy of the kidneys and numerous bilateral kidney stones Abdomen CTA 10/17/20 16:00 IMPRESSION: 1. 3.69 cm abdominal aortic aneurysm 2. Moderate atherosclerotic stenosis at the origin of the bilateral renal arteries. 3. Colonic diverticulosis 4. Moderate atrophy of the kidneys and numerous bilateral kidney stones Inpatient E&M: [id number] [facility] H[facility] L2
[2020-10-18 12:59] LABS: Pathologist Review Reviewed
--- NOTE | 2020-10-18 13:35 | CASEMGMT ---
DAVEY AMRAAL assessment: Face to Face with patient for initial transition planning/care coordination assessment. DAVEY AMARAL introduced self and role at [facility], pt voices understanding and consents to assessment at this time. Pt is lying in bed restless at this time. Pt is A/Ox 4 at this time and answers all questions appropriately at this time. Pt is on 2liters nc at this time and is in no resp distress at this time. Care providers, pharmacy, and demographics verified at this time. Presentation: Pt brought in by EMS for sternal chest pain that radiates to the sides starting around 1715 Admitting dx: HTN urgency, suspect NSTEMI PCP: [facility] Specialists: Ze, cardio; Sriram ortho; Alex PM; vascular, but can't remember name Preferred [facility]acy: [facility] Insurance: [facility] A/B, [facility] Prescription Benefit: Yes Living Will/HPOA: Pt states LW/HPOA and is aware that they are not on file at [facility] at this time. Pt states his , Clarice Bhatia, is HPOA. LNOK: Clarice Bhatia, Living Arrangements: Pt states lives with in 1 story home with ramp into home and states no concerns at home at this time. Pt states is independent with ADL's. Transportation: Pt states drives self and states no transportation concerns at this time. DME/HHC: Pt states has a cpap thru [employer] and states no need for any further DME at this time. Pt states no hx of HHC but has been to SNF in [place] in the past. Pt states no concerns with going home at time of discharge. Pt states is retired. Pt states smokes a pack/day of cigarettes and does not drink ETOH. Pt states no further concerns/needs at this time. CM to follow for home oxygen testing and any further discharge planning/needs. Advised pt to ask for CM if any further questions/concerns/needs arise, voices understanding. Pt Goal: Home Plan[place] DAVEY AMARAL
[2020-10-18] MEDS: Morphine 2 MG/ML Syringe IV (16:31)
[2020-10-18] MEDS: Mag Hydrox/Al Hydrox/Simeth 30 ML UDC PO (16:34)
--- NOTE | 2020-10-18 17:26 | PN.CARD_ITS ---
Subjectve: The patient states he feels somewhat better overall however he still has back discomfort. Objective: Vital Signs Temp Pulse Resp BP Pulse Ox 98.5 F 95 20 H 169/101 H 96 10/18/20 16:37 10/18/20 16:37 10/18/20 16:37 10/18/20 16:37 10/18/20 16:40 Oxygen Flow Rate (L/min) 2 Oxygen Delivery Method Nasal Cannula Weight: 189 lb 11.183 oz Body Mass Index (BMI) 27.3 Finger Stick Blood Glucose 134 Intake and Output for Last 24 Hours 10/16/20 10/17/20 10/18/20 23:59 23:59 23:59 Intake Total 1100 / 1100 1220 / 1220 Output Total 700 / 700 1200 / 1200 Balance 400 / 400 General: Awake, Alert, Oriented x 3, Cooperative, No Acute Distress HEENT: Atraumatic, Normocephalic, PERRL, EOMI, Sclera Non Icteric Neck: Supple, Good ROM, No JVD Lungs: Clear to auscultation Cardiovascular: Regular Rhythm, Normal S1, Normal S2 Abdomen: Bowel Sounds Present, Soft Extremities: No edema Psych/Mental Status: Appropriate 10/17/20 20:10: Magnesium 2.2 10/17/20 20:10: Troponin I < 0.015 10/17/20 23:05: Troponin I 0.022 10/17/20 : Total Bilirubin 0.30, Direct Bilirubin 0.09 10/18/20 04:20: WBC 14.2 H, RBC 4.90, Hgb 15.5, Hct 47.1, MCV 96.1 H, MCH 31.6, MCHC 32.9, Plt Count 326, MPV 8.8, Immature Gran % (Auto) 0.500, Neut % (Auto) 75.0 H, Lymph % (Auto) 13.0 L, [place] % (Auto) 11.1 H, Eos % (Auto) 0.1, Baso % (Auto) 0.3, Absolute Neuts (auto) 10.6 H, Nucleated RBC % 0 10/18/20 04:20: PT 12.0, INR 0.9, APTT 36.8 H 10/18/20 04:20: Sodium 141, Potassium 4.0, Chloride 107, Carbon Dioxide 30.0, Anion Gap 4 L, BUN 15, Creatinine 1.39 H, Est GFR (MDRD) Af Amer 65, Est GFR (MDRD) Non-Af 54 L, BUN/Creatinine Ratio 10.8, Glucose 118 H, Calcium 8.7, Total Bilirubin 0.30, Triglycerides 129, Cholesterol 175, LDL Cholesterol 93, VLDL Cholesterol 26, HDL Cholesterol 56 Rhythm: Sinus rhythm EKG: Normal sinus rhythm, subtle nonspecific ST/T wave abnormality ECHO: Interpretation Summary The study was technically difficult. Contrast injection was performed. Left ventricular systolic function is normal. The estimated ejection fraction is 55 %. Moderate concentric left ventricular hypertrophy. The left atrium is mildly enlarged. Trivial mitral valve insufficiency. Trivial tricuspid valve insufficiency. Unable to estimate RV systolic pressure/pulmonary artery pressure due to technically difficult study. Diastolic function is indeterminate. Medical Necessity - Tobacco Use Smoking Status: Current every day smoker Tobacco Use: Cigarettes Assessment/Plan 1. Chest pain?back pain The patient has complained of a combination of chest and back discomfort. Thus far his cardiac evaluation with respect to his initial troponin I level was negative. His ECGs have demonstrated sinus rhythm with occasional PVCs with no nonspecific ST/T wave abnormality. His radiologic studies have been unremarkable for great vessel disease with respect to aortic dissection or thro mboembolic disease. His echocardiogram is as noted. At the present time there is concerns that his chest and back discomfort-which appears to be somewhat atypical with respect to classic symptoms of coronary artery disease/myocardial ischemia-, based upon his negative cardiovascular evaluation thus far, is non-CAD and noncardiovascular related. At the moment he will continue cardiovascular risk factor evaluation care as deemed appropriate. It was not felt he required further cardiac diagnostic studies/therapeutic intervention. This could change depending upon the patient's clinical course. 2. Hyperlipidemia He will continue lipid-lowering therapy as deemed appropriate. 3. Hypertension His blood pressure is elevated. It is unclear whether this is a primary event leading to his symptoms or his blood pressure is elevated secondary to his symptoms. At the moment he will continue attempts at antihypertensive therapy to bring his blood pressure under better control. 4. Adrenal insufficiency He has a history of adrenal insufficiency. He states this contributed to his previous diagnosis of syncope. He has been evaluated and treated for this. 5. Peripheral vascular disease He has a history of peripheral vascular disease of the lower extremities. He states that he underwent evaluation care at an outside hospital which included percutaneous intervention. The details of this are unknown at this time. 6. Orthostasis He has a history of orthostatic changes which he states is supposedly related to his adrenal insufficiency. He has required therapy with Midodrine cyst with this while trying to balance concerns of hypertension. 7. Chronic renal insufficiency He also has a history of chronic renal insufficiency. This led to be taken into consideration with respect to his medical management. Comment: The patient's case has been discussed and reviewed with the [facility] staff. This note was generated using a voice recognition system and there may be incorrect words, spelling or punctuation that were not noted when reviewing the office note prior to saving.
[2020-10-18] MEDS: Atorvastatin Calcium 20 MG Tablet PO (20:26)
[2020-10-18] MEDS: Amitriptyline 100 MG Tablet PO (20:26)
[2020-10-18] MEDS: 0.9% Normal Saline 1,000 ML 75 ML IV (20:30)
[2020-10-19] VITALS (13 sets, daily range): BP systolic 113–178; BP diastolic 56–104; PULSE 84–112; RESP 16–20; TEMP 36.7–37.2; O2SAT 93–100
[2020-10-19 07:09] LABS: Absolute Lymphocyte Count 1.43 X10^3/uL (0.83-4.51); Absolute Neutrophil Count 9.1 X10^3/uL (2.0-7.7); Basophil# 0.03 X10^3/uL; Basophil% 0.2 % (0-1); Eosinophil# 0.01 X10^3/uL; Eosinophils% 0.1 % (0-5); Hematocrit 44.6 % (40-54); Hemoglobin 14.3 g/dL (13.0-16.5); Lymphocyte # 1.43 X10^3/ul (4.0); Lymphocyte % 11.6 % (19-41); Mean Corp Hgb Conc 32.1 g/dL (32-36); Mean Corpuscular Hgb 30.9 pg (27.0-32.0); Mean Corpuscular Volume 96.3 fL (80-94); Mean Platelet Vol. 9.8 fl (6.2-12.0); Monocyte# 1.81 X10^3/uL; Monocyte% 14.6 % (0-10); NRBC Flagged by Analyzer 0 % (0-5); Neutrophil # 9.05 X10^3/uL (2.7-7.7); Neutrophil % 73.1 % (47-70); POSITIVE DIFFERENTIAL YES; Platelet Count 277 K/mm3 (150-450); RBC Distribution Width CV 13.5 % (11.6-14.6); RBC Distribution Width SD 48.3 fl (35.1-43.9); Red Blood Count 4.63 M/mm3 (4.6-6.2); White Blood Count 12.4 K/mm3 (4.4-11.0)
[2020-10-19 07:14] LABS: Differential Indicated SCAN CRITERIA MET
[2020-10-19 08:20] LABS: Anion Gap 7 (5-15); BUN 17 mg/dL (7-18); BUN/Creat Ratio 12.8 RATIO (10-20); Calcium,Total 8.2 mg/dL (8.5-10.1); Chloride 108 mmol/L (98-107); Creatinine, Serum 1.33 mg/dL (0.70-1.30); EST Glomerular Filtration Rate 56 mL/min (>60); Est Glom Filt Rate - Afr Amer 68 mL/min (>60); Estimated Creatinine Clearance 54.26 ml/min; Glucose 109 mg/dL (74-106); Potassium 4.4 mmol/L (3.5-5.1); Sodium Level 138 mmol/L (136-145)
[2020-10-19] MEDS: Gabapentin 400 MG Capsule PO ×3 (09:43→18:02)
[2020-10-19] MEDS: Hydrocortisone 10 MG Tablet PO ×2 (09:43→18:02)
[2020-10-19] MEDS: Enoxaparin 100 MG/ML Syringe 90 MG SC ×2 (09:43→21:31)
[2020-10-19] MEDS: Clopidogrel Bisulfate 75 MG Tablet PO (09:44)
[2020-10-19] MEDS: Cilostazol 50 MG Tablet 100 MG PO ×2 (09:44→21:32)
[2020-10-19] MEDS: Pantoprazole Sodium 40 MG Tablet PO ×2 (09:45→21:31)
[2020-10-19] MEDS: 0.9% Normal Saline 1,000 ML 75 ML IV (09:45)
[2020-10-19] MEDS: hydrALAZINE 20 MG/ML Vial 10 MG IV (13:25)
[2020-10-19] MEDS: 0.9% Saline Lock 10 ML Syringe IV (13:26)
--- NOTE | 2020-10-19 13:33 | PCM.PROGNOTE ---
<BehzadPia RETAIL INVENTORY CONTROL CLERK - Last Filed: 10/19/20 13:46> Patient Problems: Active and Suspected Problems (Last Reviewed 09/01/19 @ 12:[address] Maximiliano Kunz MD) Chest pain (Acute) Subjective: Patient seen and examined. Denies further chest or back pain currently. Appears dyspneic however denies shortness of breath. He remains on supplemental oxygen. - Physical Exam Vitals/I&O's: Vital Signs Temp Pulse Resp BP Pulse Ox 98.1 F 110 H 16 178/95 H 100 10/19/20 12:50 10/19/20 13:25 10/19/20 12:50 10/19/20 12:50 10/19/20 12:50 Oxygen Flow Rate (L/min) 2 Oxygen Delivery Method Nasal Cannula Weight: 195 lb Body Mass Index (BMI) 27.3 Finger Stick Blood Glucose 134 Intake and Output for Last 24 Hours 10/17/20 10/18/20 10/19/20 23:59 23:59 23:59 Intake Total 1100 / 1100 2366.67 / 2726.67 1953.75 / 1953.75 Output Total 700 / 700 1400 / 1400 650 / 650 Balance 400 / 400 966.67 / 1326.67 1303.75 / 1303.75 General: Alert, Oriented x3, Cooperative HEENT: Atraumatic, PERRLA, EOMI, Normocephalic Neck: Supple, No JVD, Negative Carotid Bruits Lungs: Clear to auscultation, Diminished, Tachypneic Cardiovascular: No murmurs, Tachycardic Abdomen: Bowel Sounds Present, Soft, Non Tender, Non-Distended Extremities: No clubbing, No cyanosis, No edema, Capillary Refill Less than 3 Seconds Skin: No rashes, No breakdown Musculoskeletal: No Tenderness to Palpation of Joints or Extremities Neurological: Cranial nerves II-XII grossly intact, Neuro grossly intact Psych/Mental Status: Normal Affect, Appropriate Laboratory Results 10/19/20 06:30: WBC 12.4 H, RBC 4.63, Hgb 14.3, Hct 44.6, MCV 96.3 H, MCH 30.9, MCHC 32.1, RDW Std Deviation 48.3 H, RDW Coeff of Ruperto 13.5, Plt Count 277, MPV 9.8, Immature Gran % (Auto) 0.400, Neut % (Auto) 73.1 H, Lymph % (Auto) 11.6 L, [place] % (Auto) 14.6 H, Eos % (Auto) 0.1, Baso % (Auto) 0.2, Absolute Neuts (auto) 9.1 H, Absolute Lymphs (auto) 1.43, Nucleated RBC % 0, Diff Path Review March10/19/20 06:30: Sodium Cancelled, Potassium Cancelled, Chloride Cancelled, Carbon Dioxide Cancelled, Anion Gap Cancelled, BUN Cancelled, Creatinine Cancelled, Estim Creat Clear Calc Cancelled, Est GFR (MDRD) Af Amer Cancelled, Est GFR (MDRD) Non-Af Cancelled, BUN/Creatinine Ratio Cancelled, Glucose Cancelled, Calcium Cancelled 10/19/20 07:50: Sodium 138, Potassium 4.4, Chloride 108 H, Carbon Dioxide 23.0, Anion Gap 7, BUN 17, Creatinine 1.33 H, Estim Creat Clear Calc 54.26, Est GFR (MDRD) Af Amer 68, Est GFR (MDRD) Non-Af 56 L, BUN/Creatinine Ratio 12.8, Glucose 109 H, Calcium 8.2 L Current Medications Acetaminophen (Acetaminophen 325 Mg Tablet) 650 mg PO Q6H PRN PRN PRN Reason: Pain Score 1-10/Temp > 100.7 F Last Admin: 10/18/20 02:17 Dose: 650 mg Documented by: Al Hydroxide/Mg Hydroxide (Mag Hydrox/Al Hydrox/Simeth 30 Ml Udc) 30 ml PO Q6H PRN PRN PRN Reason: Gastric Burning Last Admin: 10/18/20 16:34 Dose: 30 ml Documented by: Albuterol Sulfate (Albuterol 2.5 Mg/3 Ml Vial.Neb.) 2.5 mg INHALATION Q2H PRN PRN PRN Reason: Dyspnea, wheezing Albuterol/Ipratropium (Ipratropium/Albuterol Sulfate 3 Ml Ampul.Neb) 3 ml INHALATION Q6HWA.RT YELENA Last Admin: 10/18/20 20:26 Dose: 3 ml Documented by: Amitriptyline HCl (Amitriptyline 100 Mg Tablet) 100 mg PO QHS YELENA Last Admin: 10/18/20 20:26 Dose: 100 mg Documented by: Atorvastatin Calcium (Atorvastatin Calcium 20 Mg Tablet) 20 mg PO QHS [facility] Last Admin: 10/18/20 20:26 Dose: 20 mg Documented by: Cilostazol (Cilostazol 50 Mg Tablet) 100 mg PO BID [facility] Last Admin: 10/19/20 09:44 Dose: 100 mg Documented by: Clopidogrel Bisulfate (Clopidogrel Bisulfate 75 Mg Tablet) 75 mg PO DAILY [facility] Last Admin: 10/19/20 09:44 Dose: 75 mg Documented by: Cyclobenzaprine HCl (Cyclobenzaprine Hcl 10 Mg Tablet) 10 mg PO TID PRN PRN PRN Reason: MUSCLE SPASM Last Admin: 10/18/20 11:25 Dose: 10 mg Documented by: Enoxaparin Sodium (Enoxaparin 100 Mg/Ml Syringe) 90 mg SC Q12 [facility] Last Admin: 10/19/20 09:43 Dose: 90 mg Documented by: Gabapentin (Gabapentin 400 Mg Capsule) 400 mg PO TIDCM [facility] Last Admin: 10/19/20 12:59 Dose: 400 mg Documented by: Guaifenesin (Guaifenesin 10 Ml Udc (200mg/10ml)) 10 ml PO Q4H PRN PRN PRN Reason: COUGH Hydralazine HCl (Hydralazine 20 Mg/Ml Vial) 10 mg IV Q4H PRN PRN PRN Reason: SBP > 160 Last Admin: 10/19/20 13:25 Dose: 10 mg Documented by: Hydrocortisone (Hydrocortisone 10 Mg Tablet) 10 mg PO BIDCM [facility] Last Admin: 10/19/20 09:43 Dose: 10 mg Documented by: Magnesium Hydroxide (Magnesium Hydroxide 30 Ml Udc) 30 ml PO DAILY PRN PRN PRN Reason: Constipation Melatonin (Melatonin 3 Mg Tablet) 3 mg PO QHS PRN PRN PRN Reason: INSOMNIA Morphine Sulfate (Morphine 2 Mg/Ml Syringe) 2 mg IV Q3H PRN PRN PRN Reason: Pain Score 6-10 Last Admin: 10/18/20 16:31 Dose: 2 mg Documented by: Nitroglycerin (Nitroglycerin (Inpatient Use) 0.4 Mg Tab.Subl) 0.4 mg SUBLINGUAL Q5M PRN PRN Reason: CARDIAC/CHEST PAIN Ondansetron HCl (Ondansetron 4 Mg/2 Ml Vial) 4 mg IV Q8H PRN PRN PRN Reason: NAUSEA/VOMITING Oxycodone HCl (Oxycodone 5 Mg Tablet) 5 mg PO Q4H PRN PRN PRN Reason: Pain Score 4-5 Last Admin: 10/18/20 09:43 Dose: 5 mg Documented by: Pantoprazole Sodium (Pantoprazole Sodium 40 Mg Tablet) 40 mg PO BID YELENA Last Admin: 10/19/20 09:45 Dose: 40 mg Documented by: Prochlorperazine Edisylate (Prochlorperazine 10 Mg/2 Ml Vial) 5 mg IV Q4H PRN PRN PRN Reason: Breakthrough Nausea/Vomiting Psyllium Hydrophilic Mucilloid (Psyllium 1 Packet) 1 packet PO DAILY PRN PRN PRN Reason: Constipation Senna/Docusate Sodium (Senna/Docusate Sodium 1 Tablet) 2 tablet PO BID PRN PRN Reason: Constipation Sodium Chloride (0.9% Saline Lock 10 Ml Syringe) 10 - 40 ml IV UD PRN PRN Reason: SALINE FLUSH Last Admin: 10/19/20 13:26 Dose: 10 ml Documented by: Throat Lozenges (Benzocaine/Menthol 1 Lozenge) 1 lozenge MUCOUS MEM Q2H PRN PRN PRN Reason: SORE THROAT Medical Necessity - Tobacco Use Smoking Status: Current every day smoker Tobacco Use: Cigarettes Assessment/Plan All Active Problems (Last Reviewed 09/01/19 @ 12:[address] Maximiliano Kunz MD) Chest pain (Acute) Acute kidney injury (Resolved) Coffee ground emesis (Resolved) Confusion (Resolved) Hypotension (Resolved) TIA (transient ischemic attack) (Resolved) 1. Hypertensive emergency, uncontrolled hypertension-midodrine on hold. Blood pressure continues to fluctuate. As needed hydralazine for systolic blood pressure greater than 160. 2. Chest pain-currently resolved. Cardiology is following. Troponin negative. Suspect musculoskeletal nature. Echocardiogram demonstrates an EF of 55%. No further plans for stress/cath at this time. CTA negative. 3. History of orthostatic hypotension, adrenal insufficiency-continue hydrocortisone. Midodrine on hold. 4. Acute hypoxia, suspect chronic secondary to underlying severe chronic COPD-CTA with significant emphysematous changes. Continue supplement oxygen to maintain O2 at above 90%. Incentive spirometer. Albuterol DuoNeb aerosols. Ambulatory pulse ox prior to discharge. 5. Tobacco dependence-current 2 pack/day smoker. Encouraged cessation. 6. PAD-follows with Dr. Olson. Prior stents. Continue Plavix, statin, Pletal. 7. History of TIA-aspirin, statin. 8. Hyperlipidemia-continue statin. 9. History of bladder cancer-continue outpatient follow-up. 10. GERD-continue PPI. DVT prophylaxis-Lovenox subcu Discharge planning: PT/OT eval pending. Possible discharge home tomorrow if blood pressure stable and safe to return home per PT. Home O2 testing prior to discharge. This patient was seen by BRYANT Dahl under the supervision of Dr. Curry. <Eric Curry - Last Filed: 10/19/20 16:27> - Physical Exam Vitals/I&O's: Vital Signs Temp Pulse Resp BP Pulse Ox 98.9 F 108 H 18 115/65 96 10/19/20 15:40 10/19/20 15:40 10/19/20 15:40 10/19/20 15:40 10/19/20 15:40 Oxygen Flow Rate (L/min) 2 Oxygen Delivery Method Nasal Cannula Weight: 195 lb Body Mass Index (BMI) 27.3 Finger Stick Blood Glucose 134 Intake and Output for Last 24 Hours 10/17/20 10/18/20 10/19/20 23:59 23:59 23:59 Intake Total 1100 / 1100 2366.67 / 2726.67 2228.75 / 2228.75 Output Total 700 / 700 1400 / 1400 650 / 650 Balance 400 / 400 966.67 / 1326.67 1578.75 / 1578.75 Laboratory Results 10/19/20 06:30: WBC 12.4 H, RBC 4.63, Hgb 14.3, Hct 44.6, MCV 96.3 H, MCH 30.9, MCHC 32.1, RDW Std Deviation 48.3 H, RDW Coeff of Ruperto 13.5, Plt Count 277, MPV 9.8, Immature Gran % (Auto) 0.400, Neut % (Auto) 73.1 H, Lymph % (Auto) 11.6 L, [place] % (Auto) 14.6 H, Eos % (Auto) 0.1, Baso % (Auto) 0.2, Absolute Neuts (auto) 9.1 H, Absolute Lymphs (auto) 1.43, Nucleated RBC % 0, Diff Path Review Reviewed 10/19/20 06:30: Sodium Cancelled, Potassium Cancelled, Chloride Cancelled, Carbon Dioxide Cancelled, Anion Gap Cancelled, BUN Cancelled, Creatinine Cancelled, Estim Creat Clear Calc Cancelled, Est GFR (MDRD) Af Amer Cancelled, Est GFR (MDRD) Non-Af Cancelled, BUN/Creatinine Ratio Cancelled, Glucose Cancelled, Calcium Cancelled 10/19/20 07:50: Sodium 138, Potassium 4.4, Chloride 108 H, Carbon Dioxide 23.0, Anion Gap 7, BUN 17, Creatinine 1.33 H, Estim Creat Clear Calc 54.26, Est GFR (MDRD) Af Amer 68, Est GFR (MDRD) Non-Af 56 L, BUN/Creatinine Ratio 12.8, Glucose 109 H, Calcium 8.2 L Current Medications Acetaminophen (Acetaminophen 325 Mg Tablet) 650 mg PO Q6H PRN PRN PRN Reason: Pain Score 1-10/Temp > 100.7 F Last Admin: 10/18/20 02:17 Dose: 650 mg Documented by: Al Hydroxide/Mg Hydroxide (Mag Hydrox/Al Hydrox/Simeth 30 Ml Udc) 30 ml PO Q6H PRN PRN PRN Reason: Gastric Burning Last Admin: 10/18/20 16:34 Dose: 30 ml Documented by: Albuterol Sulfate (Albuterol 2.5 Mg/3 Ml Vial.Neb.) 2.5 mg INHALATION Q2H PRN PRN PRN Reason: Dyspnea, wheezing Albuterol/Ipratropium (Ipratropium/Albuterol Sulfate 3 Ml Ampul.Neb) 3 ml INHALATION Q6HWA.RT [facility] Last Admin: 10/18/20 20:26 Dose: 3 ml Documented by: Amitriptyline HCl (Amitriptyline 100 Mg Tablet) 100 mg PO QHS [facility] Last Admin: 10/18/20 20:26 Dose: 100 mg Documented by: Atorvastatin Calcium (Atorvastatin Calcium 20 Mg Tablet) 20 mg PO QHS [facility] Last Admin: 10/18/20 20:26 Dose: 20 mg Documented by: Cilostazol (Cilostazol 50 Mg Tablet) 100 mg PO BID [facility] Last Admin: 10/19/20 09:44 Dose: 100 mg Documented by: Clopidogrel Bisulfate (Clopidogrel Bisulfate 75 Mg Tablet) 75 mg PO DAILY [facility] Last Admin: 10/19/20 09:44 Dose: 75 mg Documented by: Cyclobenzaprine HCl (Cyclobenzaprine Hcl 10 Mg Tablet) 10 mg PO TID PRN PRN PRN Reason: MUSCLE SPASM Last Admin: 10/18/20 11:25 Dose: 10 mg Documented by: Enoxaparin Sodium (Enoxaparin 100 Mg/Ml Syringe) 90 mg SC Q12 [facility] Last Admin: 10/19/20 09:43 Dose: 90 mg Documented by: Gabapentin (Gabapentin 400 Mg Capsule) 400 mg PO TIDCM [facility] Last Admin: 10/19/20 12:59 Dose: 400 mg Documented by: Guaifenesin (Guaifenesin 10 Ml Udc (200mg/10ml)) 10 ml PO Q4H PRN PRN PRN Reason: COUGH Hydralazine HCl (Hydralazine 20 Mg/Ml Vial) 10 mg IV Q4H PRN PRN PRN Reason: SBP > 160 Last Admin: 10/19/20 13:25 Dose: 10 mg Documented by: [facility]cortis[facility] ([facility]) [facility] Last Admin: 10/19/20 09:43 Dose: 10 mg Documented by: Magnesium Hydroxide (Magnesium Hydroxide 30 Ml Udc) 30 ml PO DAILY PRN PRN PRN Reason: Constipation Melatonin (Melatonin 3 Mg Tablet) 3 mg PO QHS PRN PRN PRN Reason: INSOMNIA Morphine Sulfate (Morphine 2 Mg/Ml Syringe) 2 mg IV Q3H PRN PRN PRN Reason: Pain Score 6-10 Last Admin: 10/18/20 16:31 Dose: 2 mg Documented by: Nitroglycerin (Nitroglycerin (Inpatient Use) 0.4 Mg Tab.Subl) 0.4 mg SUBLINGUAL Q5M PRN PRN Reason: CARDIAC/CHEST PAIN Ondansetron HCl (Ondansetron 4 Mg/2 Ml Vial) 4 mg IV Q8H PRN PRN PRN Reason: NAUSEA/VOMITING Oxycodone HCl (Oxycodone 5 Mg Tablet) 5 mg PO Q4H PRN PRN PRN Reason: Pain Score 4-5 Last Admin: 10/18/20 09:43 Dose: 5 mg Documented by: Pantoprazole Sodium (Pantoprazole Sodium 40 Mg Tablet) 40 mg PO BID [facility] Last Admin: 10/19/20 09:45 Dose: 40 mg Documented by: Prochlorperazine Edisylate (Prochlorperazine 10 Mg/2 Ml Vial) 5 mg IV Q4H PRN PRN PRN Reason: Breakthrough Nausea/Vomiting Psyllium Hydrophilic Mucilloid (Psyllium 1 Packet) 1 packet PO DAILY PRN PRN PRN Reason: Constipation Senna/Docusate Sodium (Senna/Docusate Sodium 1 Tablet) 2 tablet PO BID PRN PRN Reason: Constipation Sodium Chloride (0.9% Saline Lock 10 Ml Syringe) 10 - 40 ml IV UD PRN PRN Reason: SALINE FLUSH Last Admin: 10/19/20 13:26 Dose: 10 ml Documented by: Throat Lozenges (Benzocaine/Menthol 1 Lozenge) 1 lozenge MUCOUS MEM Q2H PRN PRN PRN Reason: SORE THROAT Assessment/Plan This patient was seen in conjunction with RETAIL INVENTORY CONTROL CLERKPia. I have independently interviewed and examined the patient and reviewed pertinent history, examination findings, laboratory and plan of management. I have reviewed the note and agree with the documented findings with the few additional points. In brief, patient is 69-year-old gentleman with history of peripheral arterial disease, bilateral carotid artery disease admitted with chest pain and high blood pressure. Patient was put on nicardipine drip and admitted in ICU on 10/17 and transferred to PCU on 10/18/2020. EKG showed no acute ischemic changes. Serial troponin enzymes negative. CTA chest and abdomen no acute abnormality but 3.69 abdominal aortic aneurysm with moderate atherosclerotic stenosis at the origin of bilateral renal arteries. Moderate atrophy of kidneys with numerous bilateral kidney stones. Patient had 2D echo showed EF 55% with moderate concentric LVH. LA mildly enlarged. No significant valvular abnormality. Patient also has history of bladder cancer, chronic adrenal insufficiency and CKD stage III. Patient received IV contrast. Patient received IV fluid. On hydrocortisone for history of chronic adrenal insufficiency. Patient also has chronic hypoxia secondary to severe COPD CTA shows significant emphysema. Continue to monitor. Patient has chronic smoking 2 packs/day. Other comorbidities as mentioned above I have discussed my assessment with Pia DELACRUZ and orders have been reviewed. Inpatient E&M: 49618 Subs Hosp L2
[2020-10-19 13:52] LABS: Pathologist Review Reviewed
[2020-10-19] MEDS: Amitriptyline 100 MG Tablet PO (21:31)
[2020-10-19] MEDS: Atorvastatin Calcium 20 MG Tablet PO (21:31)
[2020-10-19 22:45] LABS: Bedside Glucose 130 mg/dL (70-110)
[2020-10-19] MEDS: cycloBENZAPRine HCl 10 MG Tablet PO (23:02)
[2020-10-19] MEDS: MELATONIN 3 MG TABLET PO (23:29)
[2020-10-19] MEDS: oxyCODONE 5 MG Tablet PO (23:29)
[2020-10-20] VITALS (16 sets, daily range): BP systolic 101–155; BP diastolic 43–93; PULSE 95–115; RESP 18–24; TEMP 36.8–37.8; O2SAT 84–98
[2020-10-20] MEDS: Ipratropium/Albuterol Sulfate 3 ML AMPUL.NEB INHALATION (07:00)
[2020-10-20 07:36] LABS: Hematocrit 44.3 % (40-54); Hemoglobin 14.6 g/dL (13.0-16.5); Mean Corpuscular Hgb 31.6 pg (27.0-32.0); Mean Corpuscular Volume 95.9 fL (80-94); Mean Platelet Vol. 9.3 fl (6.2-12.0); Platelet Count 258 K/mm3 (150-450); RBC Distribution Width CV 13.2 % (11.6-14.6); Red Blood Count 4.62 M/mm3 (4.6-6.2); White Blood Count 12.8 K/mm3 (4.4-11.0)
[2020-10-20 08:00] LABS: Anion Gap 7 (5-15); BUN 21 mg/dL (7-18); BUN/Creat Ratio 13.3 RATIO (10-20); Calcium,Total 8.8 mg/dL (8.5-10.1); Chloride 108 mmol/L (98-107); Creatinine, Serum 1.58 mg/dL (0.70-1.30); EST Glomerular Filtration Rate 46 mL/min (>60); Est Glom Filt Rate - Afr Amer 56 mL/min (>60); Estimated Creatinine Clearance 45.67 ml/min; Glucose 109 mg/dL (74-106); Potassium 4.1 mmol/L (3.5-5.1); Sodium Level 138 mmol/L (136-145)
[2020-10-20] MEDS: Gabapentin 400 MG Capsule PO ×3 (08:38→18:28)
[2020-10-20] MEDS: Cilostazol 50 MG Tablet 100 MG PO ×2 (08:38→20:55)
[2020-10-20] MEDS: Pantoprazole Sodium 40 MG Tablet PO ×2 (08:38→20:56)
[2020-10-20] MEDS: Clopidogrel Bisulfate 75 MG Tablet PO (08:38)
[2020-10-20] MEDS: Hydrocortisone 10 MG Tablet PO ×2 (08:38→18:28)
[2020-10-20] MEDS: Enoxaparin 100 MG/ML Syringe 90 MG SC ×2 (08:38→20:55)
--- NOTE | 2020-10-20 09:45 | RAD_ITS ---
STUDY: X-RAY CHEST REASON FOR EXAM: Male, 70 years old. Tachypnea, shortness of breath TECHNIQUE: Single AP portable view of the chest. COMPARISON: Comparison is made with prior examination dated 07/07/2020. FINDINGS: EKG electrodes are seen. Left lower lobe infiltrate. Blunting of the left costophrenic angle. Mild increased markings at the right lung base. Normal size heart. Normal mediastinum and debra. Normal visualized pulmonary arteries. There is atherosclerotic calcification of the aortic arch with tortuosity. There are diffuse degenerative changes of the visualized thoracic spine. Normal visualized ribs, clavicles, and shoulders. There is no demonstrated abnormality of the visualized soft tissue structures of the upper abdomen. RAD/Chest 1 View (Portable) IMPRESSION: Left lower lobe infiltrate with blunting of left costophrenic angle. Mild increased markings at the right lung base. Electronically Signed: Efrain Dominique, at 10:00 EST , Service support ,
--- NOTE | 2020-10-20 11:38 | CASEMGMT ---
Addendum entered by Yesenia Biswas 10/20/20 13:49: Green sheet left on chart for home oxygen need. CM to follow PT/OT for further discharge planning/needs. Marii MARISCAL CM Original Note: [place] [facility] [place] them at this time. Marii MARISCAL CM
--- NOTE | 2020-10-20 13:54 | CT_ITS ---
Comparison is made with prior study dated 05/15/2019. STUDY: CT BRAIN WITHOUT CONTRAST REASON FOR EXAM: Male, 70 years old. CONFUSION RADIATION DOSAGE (If Supplied By Facility): CTDIvol = ( 60.81 ) mGy, DLP = ( 1158.30 ) mGycm TECHNIQUE: Transaxial CT imaging of the brain was performed without administration of intravenous contrast material. Individualized dose optimization techniques were used for this CT. COMPARISON: No relevant priors. FINDINGS: Normal soft tissue structures. Normal calvarium. There is mild cerebral atrophy with widening of the extra-axial spaces and ventricular dilatation. There are areas of decreased attenuation within the white matter tracts of the supratentorial brain, consistent with microvascular disease changes. Normal basal ganglia and thalami. Normal brainstem. Normal cerebellum. There is no intracranial hemorrhage. There are no findings of an acute ischemic infarction. Atherosclerotic calcification of the cavernous portions of the internal carotid arteries bilaterally. Minimal mucosal thickening at the base of the right maxillary sinus and tiny polyp or retention cyst in the anterior aspect of the left maxillary sinus. CT/Brain/Head without Contrast IMPRESSION: Chronic involutional changes of the brain. Electronically Signed: Efrain Dominique, at 14:34 EST , Service support ,
--- NOTE | 2020-10-20 14:03 | PCM.PROGNOTE ---
<Pia Wen RACK PRODUCTION WORKER - Last Filed: 10/20/20 15:00> Patient Problems: Active and Suspected Problems (Last Reviewed 09/01/19 @ 12:[address] Maximiliano Kunz MD) Chest pain (Acute) Subjective: Patient seen and examined. Increased confusion today. Denies shortness of breath however appears to have increased dyspnea. He denies chest pain/back pain. He denies symptoms or complaints. Spoke with who has concerns regarding patient's confusion. Brain CT, ABG, urinalysis ordered. Covid negative. Respiratory panel pending. - Physical Exam Vitals/I&O's: Vital Signs Temp Pulse Resp BP Pulse Ox 98.9 F 110 H 24 H 101/55 L 93 10/20/20 11:51 10/20/20 11:51 10/20/20 13:20 10/20/20 11:51 10/20/20 13:24 Oxygen Flow Rate (L/min) 2 Oxygen Delivery Method Nasal Cannula Weight: 194 lb 3.636 oz Body Mass Index (BMI) 27.3 Finger Stick Blood Glucose 134 Intake and Output for Last 24 Hours 10/18/20 10/19/20 10/20/20 23:59 23:59 23:59 Intake Total 2366.67 / 2726.67 2618.75 / 2618.75 100 / 100 Output Total 1400 / 1400 1425 / 1425 350 / 350 Balance 966.67 / 1326.67 1193.75 / 1193.75 -250 / -250 General: Alert, Cooperative, No apparent distress HEENT: Atraumatic, PERRLA, EOMI, Normocephalic Oral: Dry Mucosa Neck: Supple, No JVD, Negative Carotid Bruits Lungs: Clear to auscultation, Diminished, Tachypneic Cardiovascular: Regular Rhythm, Tachycardic Abdomen: Bowel Sounds Present, Soft, Non Tender, Non-Distended Extremities: No clubbing, No cyanosis, No edema, Capillary Refill Less than 3 Seconds Skin: No rashes, No breakdown Musculoskeletal: No Tenderness to Palpation of Joints or Extremities Neurological: Cranial nerves II-XII grossly intact, Neuro grossly intact Psych/Mental Status: Restless Microbiology Past 72 Hours 10/20/20 11:45 Mucosa - Nose SARS-CoV-2 Antigen (Rapid) - Final Laboratory Results 10/19/20 22:42: POC Glucose 130 H 10/20/20 06:50: WBC 12.8 H, RBC 4.62, Hgb 14.6, Hct 44.3, MCV 95.9 H, MCH 31.6, MCHC 33.0, RDW Std Deviation 47.0 H, RDW Coeff of Ruperto 13.2, Plt Count 258, MPV 9.3 10/20/20 06:50: Sodium 138, Potassium 4.1, Chloride 108 H, Carbon Dioxide 23.0, Anion Gap 7, BUN 21 H, Creatinine 1.58 H, Estim Creat Clear Calc 45.67, Est GFR (MDRD) Af Amer 56 L, Est GFR (MDRD) Non-Af 46 L, BUN/Creatinine Ratio 13.3, Glucose 109 H, Calcium 8.8 Current Medications Acetaminophen (Acetaminophen 325 Mg Tablet) 650 mg PO Q6H PRN PRN PRN Reason: Pain Score 1-10/Temp > 100.7 F Last Admin: 10/18/20 02:17 Dose: 650 mg Documented by: Al Hydroxide/Mg Hydroxide (Mag Hydrox/Al Hydrox/Simeth 30 Ml Udc) 30 ml PO Q6H PRN PRN PRN Reason: Gastric Burning Last Admin: 10/18/20 16:34 Dose: 30 ml Documented by: Albuterol Sulfate (Albuterol 2.5 Mg/3 Ml Vial.Neb.) 2.5 mg INHALATION Q2H PRN PRN PRN Reason: Dyspnea, wheezing Albuterol/Ipratropium (Ipratropium/Albuterol Sulfate 3 Ml Ampul.Neb) 3 ml INHALATION Q6HWA.RT [facility] Last Admin: 10/20/20 07:00 Dose: 3 ml Documented by: Amitriptyline HCl (Amitriptyline 100 Mg Tablet) 100 mg PO QHS [facility] Last Admin: 10/19/20 21:31 Dose: 100 mg Documented by: Atorvastatin Calcium (Atorvastatin Calcium 20 Mg Tablet) 20 mg PO QHS [facility] Last Admin: 10/19/20 21:31 Dose: 20 mg Documented by: Cilostazol (Cilostazol 50 Mg Tablet) 100 mg PO BID [facility] Last Admin: 10/20/20 08:38 Dose: 100 mg Documented by: Clopidogrel Bisulfate (Clopidogrel Bisulfate 75 Mg Tablet) 75 mg PO DAILY [facility] Last Admin: 10/20/20 08:38 Dose: 75 mg Documented by: Cyclobenzaprine HCl (Cyclobenzaprine Hcl 10 Mg Tablet) 10 mg PO TID PRN PRN PRN Reason: MUSCLE SPASM Last Admin: 10/19/20 23:02 Dose: 10 mg Documented by: Enoxaparin Sodium (Enoxaparin 100 Mg/Ml Syringe) 90 mg SC Q12 [facility] Last Admin: 10/20/20 08:38 Dose: 90 mg Documented by: Gabapentin (Gabapentin 400 Mg Capsule) 400 mg PO TIDCM [facility] Last Admin: 10/20/20 11:57 Dose: 400 mg Documented by: Guaifenesin (Guaifenesin 10 Ml Udc (200mg/10ml)) 10 ml PO Q4H PRN PRN PRN Reason: COUGH Hydralazine HCl (Hydralazine 20 Mg/Ml Vial) 10 mg IV Q4H PRN PRN PRN Reason: SBP > 160 Last Admin: 10/19/20 13:25 Dose: 10 mg Documented by: Hydrocortisone ([facility] 10 Mg Tablet) [facility] Last Admin: 10/20/20 08:38 Dose: 10 mg Documented by: Magnesium Hydroxide (Magnesium Hydroxide 30 Ml Udc) 30 ml PO DAILY PRN PRN PRN Reason: Constipation Melatonin (Melatonin 3 Mg Tablet) 3 mg PO QHS PRN PRN PRN Reason: INSOMNIA Last Admin: 10/19/20 23:29 Dose: 3 mg Documented by: Nitroglycerin (Nitroglycerin (Inpatient Use) 0.4 Mg Tab.Subl) 0.4 mg SUBLINGUAL Q5M PRN PRN Reason: CARDIAC/CHEST PAIN Ondansetron HCl (Ondansetron 4 Mg/2 Ml Vial) 4 mg IV Q8H PRN PRN PRN Reason: NAUSEA/VOMITING Oxycodone HCl (Oxycodone 5 Mg Tablet) 5 mg PO Q4H PRN PRN PRN Reason: Pain Score 4-5 Last Admin: 10/19/20 23:29 Dose: 5 mg Documented by: Pantoprazole Sodium (Pantoprazole Sodium 40 Mg Tablet) 40 mg PO BID [facility] Last Admin: 10/20/20 08:38 Dose: 40 mg Documented by: Prochlorperazine Edisylate (Prochlorperazine 10 Mg/2 Ml Vial) 5 mg IV Q4H PRN PRN PRN Reason: Breakthrough Nausea/Vomiting Psyllium Hydrophilic Mucilloid (Psyllium 1 Packet) 1 packet PO DAILY PRN PRN PRN Reason: Constipation Senna/Docusate Sodium (Senna/Docusate Sodium 1 Tablet) 2 tablet PO BID PRN PRN Reason: Constipation Sodium Chloride (0.9% Saline Lock 10 Ml Syringe) 10 - 40 ml IV UD PRN PRN Reason: SALINE FLUSH Last Admin: 10/19/20 13:26 Dose: 10 ml Documented by: Throat Lozenges (Benzocaine/Menthol 1 Lozenge) 1 lozenge MUCOUS MEM Q2H PRN PRN PRN Reason: SORE THROAT Medical Necessity - Tobacco Use Smoking Status: Current every day smoker Tobacco Use: Cigarettes Assessment/Plan All Active Problems (Last Reviewed 09/01/19 @ 12:[address] Maximiliano Kunz MD) Chest pain (Acute) Acute kidney injury (Resolved) Coffee ground emesis (Resolved) Confusion (Resolved) Hypotension (Resolved) TIA (transient ischemic attack) (Resolved) 1. Acute encephalopathy-unclear etiology. Brain CT ordered. ABG ordered. Urinalysis pending. Chest x-ray with left lower lobe atelectasis. PT/OT. 2. Acute hypoxia, suspect chronic secondary to underlying severe chronic COPD-CTA with significant emphysematous changes. Continue supplement oxygen to maintain O2 at above 90%. Incentive spirometer. Albuterol DuoNeb aerosols. ABG and respiratory panel pending given increased dyspnea. 3. Chest pain-currently resolved. Cardiology is following. Troponin negative. Suspect musculoskeletal nature. Echocardiogram demonstrates an EF of 55%. No further plans for stress/cath at this time. CTA negative. 4. History of orthostatic hypotension, adrenal insufficiency-continue hydrocortisone. Midodrine on hold. 5. Hypertensive emergency, uncontrolled hypertension-midodrine on hold. Blood pressure currently stable. As needed hydralazine for systolic blood pressure greater than 160. 6. Tobacco dependence-current 2 pack/day smoker. Encouraged cessation. 7. PAD-follows with Dr. Olson. Prior stents. Continue Plavix, statin, Pletal. 8. History of TIA-aspirin, statin. 9. Hyperlipidemia-continue statin. 10. History of bladder cancer-continue outpatient follow-up. 11. GERD-continue PPI. DVT prophylaxis-Lovenox subcu This patient was seen by BRYANT Dahl under the supervision of Dr. Curry. <PatricioEric - Last Filed: 10/20/20 16:39> Objective: Patient is obviously short of breath but he denies it. Patient also seems confused. Low-grade fever temperature 100 Fahrenheit. On 2 L of oxygen. Physical exam finding General: Awake, cooperative but confused. Oriented to time and place and person. HEENT: Atraumatic, PERRLA, EOMI, Normocephalic Oral: No Gingival or Mucosal Lesions/ Ulcerations Neck: Supple, No JVD, Negative Carotid Bruits Lungs: Air entry diminished in bilateral lung bases. Mild bilateral expiratory rhonchi. Cardiovascular: Regular rate, Regular Rhythm, Normal S1, Normal S2, Abdomen: Bowel Sounds Present, Soft, Non Tender, Non-Distended : No renal angle tenderness. No suprapubic tenderness. Extremities: Minimal bilateral ankle edema, Capillary Refill Less than 3 Seconds Skin: No rashes, No breakdown Musculoskeletal: No Tenderness to Palpation of Joints or Extremities Neurological: Cranial nerves II-XII grossly intact, Deep Tendon Reflexes 2+/4 and Symmetrical, Neuro grossly intact Psych/Mental Status: Confused. - Physical Exam Vitals/I&O's: Vital Signs Temp Pulse Resp BP Pulse Ox 98.3 F 112 H 24 H 115/64 98 10/20/20 15:02 10/20/20 15:02 10/20/20 15:02 10/20/20 15:02 10/20/20 15:02 Oxygen Flow Rate (L/min) 2 Oxygen Delivery Method Nasal Cannula Weight: 194 lb 3.636 oz Body Mass Index (BMI) 27.3 Finger Stick Blood Glucose 134 Intake and Output for Last 24 Hours 10/18/20 10/19/20 10/20/20 23:59 23:59 23:59 Intake Total 2366.67 / 2726.67 2618.75 / 2618.75 100 / 100 Output Total 1400 / 1400 1425 / 1425 350 / 350 Balance 966.67 / 1326.67 1193.75 / 1193.75 -250 / -250 Microbiology Past 72 Hours 10/20/20 11:45 Mucosa - Nose SARS-CoV-2 Antigen (Rapid) - Final Laboratory Results 10/19/20 22:42: POC Glucose 130 H 12/18/20 06:50: WBC 12.8 H, RBC 4.62, Hgb 14.6, Hct 44.3, MCV 95.9 H, MCH 31.6, MCHC 33.0, RDW Std Deviation 47.0 H, RDW Coeff of Ruperto 13.2, Plt Count 258, MPV 9.3 10/20/20 06:50: Sodium 138, Potassium 4.1, Chloride 108 H, Carbon Dioxide 23.0, Anion Gap 7, BUN 21 H, Creatinine 1.58 H, Estim Creat Clear Calc 45.67, Est GFR (MDRD) Af Amer 56 L, Est GFR (MDRD) Non-Af 46 L, BUN/Creatinine Ratio 13.3, Glucose 109 H, Calcium 8.8 10/20/20 14:29: Specimen Type ART, pH 7.43, Bicarbonate Actual 18.4 L, Total CO2 19, Base Excess -6 L, O2 Saturation 91 L, ABG pCO2 28.0 L, ABG pO2 58 L, Atul Test Positive, O2 Delivery Device Room Air 10/20/20 14:35: Troponin I 0.015 10/20/20 15:10: Urine Color Pending, Urine Clarity Pending, Urine pH Pending, Ur Specific Cashion Pending, Urine Protein Pending, Urine Glucose (UA) Pending, Urine Ketones Pending, Urine Occult Blood Pending, Urine Nitrite Pending, Urine Bilirubin Pending, Urine Urobilinogen Pending, Ur Leukocyte Esterase Pending, Urine RBC Pending, Urine WBC Pending, Ur Squamous Epith Cells Pending, Urine Bacteria Pending, Urine Mucus Pending Current Medications Acetaminophen (Acetaminophen 325 Mg Tablet) 650 mg PO Q6H PRN PRN PRN Reason: Pain Score 1-10/Temp > 100.7 F Last Admin: 10/18/20 02:17 Dose: 650 mg Documented by: Al Hydroxide/Mg Hydroxide (Mag Hydrox/Al Hydrox/Simeth 30 Ml Udc) 30 ml PO Q6H PRN PRN PRN Reason: Gastric Burning Last Admin: 10/18/20 16:34 Dose: 30 ml Documented by: Albuterol Sulfate (Albuterol 2.5 Mg/3 Ml Vial.Neb.) 2.5 mg INHALATION Q2H PRN PRN PRN Reason: Dyspnea, wheezing Albuterol/Ipratropium (Ipratropium/Albuterol Sulfate 3 Ml Ampul.Neb) 3 ml INHALATION Q6HWA.RT [facility] Last Admin: 10/20/20 07:00 Dose: 3 ml Documented by: Amitriptyline HCl (Amitriptyline 100 Mg Tablet) 100 mg PO QHS [facility] Last Admin: 10/19/20 21:31 Dose: 100 mg Documented by: Atorvastatin Calcium (Atorvastatin Calcium 20 Mg Tablet) 20 mg PO QHS [facility] Last Admin: 10/19/20 21:31 Dose: 20 mg Documented by: Cilostazol (Cilostazol 50 Mg Tablet) 100 mg PO BID [facility] Last Admin: 10/20/20 08:38 Dose: 100 mg Documented by: Clopidogrel Bisulfate (Clopidogrel Bisulfate 75 Mg Tablet) 75 mg PO DAILY [facility] Last Admin: 10/20/20 08:38 Dose: 75 mg Documented by: Cyclobenzaprine HCl (Cyclobenzaprine Hcl 10 Mg Tablet) 10 mg PO TID PRN PRN PRN Reason: MUSCLE SPASM Last Admin: 10/19/20 23:02 Dose: 10 mg Documented by: Enoxaparin Sodium (Enoxaparin 100 Mg/Ml Syringe) 90 mg SC Q12 [facility] Last Admin: 10/20/20 08:38 Dose: 90 mg Documented by: Gabapentin (Gabapentin 400 Mg Capsule) 400 mg PO TIDCM [facility] Last Admin: 10/20/20 11:57 Dose: 400 mg Documented by: Guaifenesin (Guaifenesin 10 Ml Udc (200mg/10ml)) 10 ml PO Q4H PRN PRN PRN Reason: COUGH Hydralazine HCl (Hydralazine 20 Mg/Ml Vial) 10 mg IV Q4H PRN PRN PRN Reason: SBP > 160 Last Admin: 10/19/20 13:25 Dose: 10 mg Documented by: Hydrocortisone (Hydrocortisone 10 Mg Tablet) 10 mg PO BIDCM [facility] Last Admin: 10/20/20 08:38 Dose: 10 mg Documented by: Magnesium Hydroxide (Magnesium Hydroxide 30 Ml Udc) 30 ml PO DAILY PRN PRN PRN Reason: Constipation Melatonin (Melatonin 3 Mg Tablet) 3 mg PO QHS PRN PRN PRN Reason: INSOMNIA Last Admin: 10/19/20 23:29 Dose: 3 mg Documented by: Nitroglycerin (Nitroglycerin (Inpatient Use) 0.4 Mg Tab.Subl) 0.4 mg SUBLINGUAL Q5M PRN PRN Reason: CARDIAC/CHEST PAIN Ondansetron HCl (Ondansetron 4 Mg/2 Ml Vial) 4 mg IV Q8H PRN PRN PRN Reason: NAUSEA/VOMITING Oxycodone HCl (Oxycodone 5 Mg Tablet) 5 mg PO Q4H PRN PRN PRN Reason: Pain Score 4-5 Last Admin: 10/19/20 23:29 Dose: 5 mg Documented by: Pantoprazole Sodium (Pantoprazole Sodium 40 Mg Tablet) 40 mg PO BID [facility] Last Admin: 10/20/20 08:38 Dose: 40 mg Documented by: Prochlorperazine Edisylate (Prochlorperazine 10 Mg/2 Ml Vial) 5 mg IV Q4H PRN PRN PRN Reason: Breakthrough Nausea/Vomiting Psyllium Hydrophilic Mucilloid (Psyllium 1 Packet) 1 packet PO DAILY PRN PRN PRN Reason: Constipation Senna/Docusate Sodium (Senna/Docusate Sodium 1 Tablet) 2 tablet PO BID PRN PRN Reason: Constipation Sodium Chloride (0.9% Saline Lock 10 Ml Syringe) 10 - 40 ml IV UD PRN PRN Reason: SALINE FLUSH Last Admin: 10/19/20 13:26 Dose: 10 ml Documented by: Throat Lozenges (Benzocaine/Menthol 1 Lozenge) 1 lozenge MUCOUS MEM Q2H PRN PRN PRN Reason: SORE THROAT Assessment/Plan This patient was seen in conjunction with RACK PRODUCTION WORKER, Pia. I have independently interviewed and examined the patient and reviewed pertinent history, examination findings, laboratory and plan of management. I have reviewed the note and agree with the documented findings with the few additional points. In brief, patient is 69-year-old gentleman with history of peripheral arterial disease, bilateral carotid artery disease admitted with chest pain and high blood pressure. Patient was put on nicardipine drip and admitted in ICU on 10/17 and transferred to PCU on 10/18/2020. EKG showed no acute ischemic changes. Serial troponin enzymes negative. CTA chest and abdomen no acute abnormality but 3.69 abdominal aortic aneurysm with moderate atherosclerotic stenosis at the origin of bilateral renal arteries. Moderate atrophy of kidneys with numerous bilateral kidney stones. Patient had 2D echo showed EF 55% with moderate concentric LVH. LA mildly enlarged. No significant valvular abnormality. Acute encephalopathy, probably metabolic: ABG 7.4 01/28/58/19 on room air suggestive of mild respiratory alkalosis. Bicarb 23 on BMP. BUN/creatinine elevated 21/1.58. Mild leukocytosis. Chest x-ray shows left lower lobe infiltrate with blunting left CP angle. CT head chronic involutional changes. SARS-CoV-2 antigen is negative. Respiratory panel pending. Patient also has history of bladder cancer, chronic adrenal insufficiency and CKD stage III. Patient received IV contrast. Patient received IV fluid. On hydrocortisone for history of chronic adrenal insufficiency. Patient also has chronic hypoxia secondary to severe COPD CTA shows significant emphysema. Continue to monitor. Patient has chronic smoking 2 packs/day. Other comorbidities as mentioned above I have discussed my assessment with Pia DELACRUZ and orders have been reviewed. Inpatient E&M: 53722 Subs Hosp L2
[2020-10-20 14:36] LABS: Allen Test Positive; Base Excess -6 mmol/L (-2 to +2); Bicarbonate 18.4 mmol/L (22-26); Blood Gas Specimen Type ART; O2 Delivery Device Room Air; PO2 58 mmHG (75-100); SO2 91 % (95-99); Total Carbon Dioxide 19 mmol/L; pH 7.43 (7.35-7.45)
--- NOTE | 2020-10-20 14:38 | CPS ---
Pt has no interest in wearing a CPAP or a BIPAP @this time.
[2020-10-20 15:25] LABS: Bacteria 0 SEEN /hpf (None Seen)
[2020-10-20 16:09] LABS: Color, Urine Yellow (Yellow); Glucose, Dipstick Normal (Normal); Ketone-Dipstick 15 mg/dl (Negative); Leukocyte Esterase-Dipstick 25 /ul (Negative); Nitrite-Dipstick Negative (Negative); Occult Blood-Urine 150 /ul (Negative); Protein-Dipstick 100 mg/dl (Negative); Urine Bilirubin Dipstick Negative (Negative); Urine Clarity Clear (Clear); Urine Urobilinogen Normal (Normal)
[2020-10-20 16:45] LABS: Amorphous Sediment 1+ URATE; Mucous, Urine 1+ /hpf (<or=2+); Red Blood Cells-Urine 10-25 SEEN /hpf (0-5); Squamous Epithelial Cells - UA 0-5 SEEN /hpf (0-5); White Blood Cells 0-5 SEEN /hpf (0-5)
[2020-10-20 18:08] LABS: Ammonia < 10.0 umol/L (11-32)
[2020-10-20] MEDS: Amitriptyline 100 MG Tablet PO (20:56)
[2020-10-20] MEDS: Atorvastatin Calcium 20 MG Tablet PO (20:57)
[2020-10-20] MEDS: 0.9% Saline Lock 10 ML Syringe IV (21:19)
--- NOTE | 2020-10-20 22:11 | PCM.PN.BLA ---
Progress Note Nurse reported patient is agitated and trying to leave the hospital. Patient would not take his p.o. medication. Haldol IV ordered. Patient refusing to take Haldol giving her ordered IM. Patient packed his belongings and attempted to leave in the hospital. He went into the hallway. Security present. Patient with confused conversation stating that his is coming from [facility]. Patient looks very short of breath. Patient will be pink slipped. Chest x-ray with left lower side infiltrate and mild leukocytosis. Eventually nursing team spoke with family who is now prepared to take patient home at this time. Will give Haldol 2 mg IM x1. Will start patient on antibiotics for possible pneumonia. STROKE Vital Signs/Narrative: Vital Signs Temp Pulse Resp BP Pulse Ox 10/20/20 20:45 114 H 22 H 92 10/20/20 19:34 99.1 F 95 20 H 155/93 H 92 10/20/20 19:16 108 H
[2020-10-20] MEDS: Haloperidol Lactate 5 MG/ML Vial 2 MG IV (22:41)
[2020-10-21] MEDS: Ceftriaxone 1 GM/50 ML BAG IV (00:10)
--- NOTE | 2020-10-21 02:11 | NURSING ---
Around 10/20 pt was found walking the hallway looking for the exit. pt eventually went back to pt room. pt with increased confusion and agitation. Notified Dr. Robb who ordered haldol. Pt was refusing haldol and had his bags backed up and was ready to leave. Dr. Robb came to bedside to see pt and pt was walking the hallway attempting to leave with Dr. Robb and security by pt. Pt daughter and were updated on pt condition and they are not comfortable to take care of pt so Dr. Robb made decision to pink slip pt. Family was updated.
[2020-10-21 02:15] VITALS: BP 99/50; PULSE 102; RESP 18; TEMP 36.6; O2SAT 98
[2020-10-21 03:42] VITALS: BP 129/76; PULSE 101; RESP 20; TEMP 37; O2SAT 98
[2020-10-21] MEDS: oxyCODONE 5 MG Tablet PO (06:18)
[2020-10-21 07:02] VITALS: PULSE 90; RESP 20; O2SAT 96
[2020-10-21] MEDS: Ipratropium/Albuterol Sulfate 3 ML AMPUL.NEB INHALATION (07:02)
[2020-10-21 07:10] LABS: Hematocrit 44.2 % (40-54); Hemoglobin 14.3 g/dL (13.0-16.5); Mean Corp Hgb Conc 32.4 g/dL (32-36); Mean Corpuscular Hgb 30.9 pg (27.0-32.0); Mean Corpuscular Volume 95.5 fL (80-94); Mean Platelet Vol. 9.3 fl (6.2-12.0); Platelet Count 282 K/mm3 (150-450); RBC Distribution Width CV 13.3 % (11.6-14.6); RBC Distribution Width SD 47.1 fl (35.1-43.9); Red Blood Count 4.63 M/mm3 (4.6-6.2); White Blood Count 13.4 K/mm3 (4.4-11.0)
[2020-10-21 07:10] LABS: M R Staph aureus DNA By PCR Negative (Negative); Probe Check PASS; Specimen Processing Control PASS
[2020-10-21 07:28] LABS: Anion Gap 5 (5-15); BUN 29 mg/dL (7-18); BUN/Creat Ratio 17.6 RATIO (10-20); Calcium,Total 8.7 mg/dL (8.5-10.1); Chloride 106 mmol/L (98-107); Creatinine, Serum 1.65 mg/dL (0.70-1.30); EST Glomerular Filtration Rate 44 mL/min (>60); Est Glom Filt Rate - Afr Amer 53 mL/min (>60); Estimated Creatinine Clearance 43.73 ml/min; Glucose 102 mg/dL (74-106); Magnesium 2.6 mg/dL (1.6-2.6); Potassium 3.9 mmol/L (3.5-5.1); Sodium Level 134 mmol/L (136-145)
[2020-10-21 08:39] VITALS: BP 130/95; PULSE 82; RESP 18; TEMP 36.9; O2SAT 94
[2020-10-21] MEDS: Pantoprazole Sodium 40 MG Tablet PO (08:41)
[2020-10-21] MEDS: Clopidogrel Bisulfate 75 MG Tablet PO (08:41)
[2020-10-21] MEDS: Hydrocortisone 10 MG Tablet PO (08:41)
[2020-10-21] MEDS: Cilostazol 50 MG Tablet 100 MG PO (08:41)
[2020-10-21] MEDS: Gabapentin 400 MG Capsule PO ×2 (08:41→12:56)
[2020-10-21] MEDS: Enoxaparin 100 MG/ML Syringe 90 MG SC (08:42)
[2020-10-21 12:45] VITALS: O2SAT 73; O2SAT 87; O2SAT 89
--- NOTE | 2020-10-21 13:07 | CASEMGMT ---
Addendum entered by Veena Vargas 10/21/20 13:49: Discharge summary w/Face to face documentation of Home O2 needed faxed to [facility] at this time Original Note: DAVEY AMARAL NOTE: Home oxygen testing has been completed. Pt qualifies for O2 @ 2 l/m @ rest and 4 L/M w/exertion. Script for O2 obtained from Pia Wen NP, and faxed to [facility] at this time. Demographics and home O2 testing documentation faxed at this time as well. Call placed to Buzz @ [facility]. He was made aware of new order for O2, pt is in room 125, is discharging today and is awaiting O2 delivery. Lizette WINCHESTER RN CM
--- NOTE | 2020-10-21 13:10 | DCINST_ITS ---
- Discharge Diagnoses Current Active Problems: Current Active and Chronic Problems (Last Reviewed 09/01/19 @ 12:[address] Maximiliano Kunz MD) PAD (peripheral artery disease) (Chronic) Chest pain (Acute) Nicotine abuse (Chronic) Adrenal insufficiency (Chronic) Nicotine dependence (Chronic) Claudication in peripheral vascular disease (Chronic) Bilateral carotid artery stenosis (Chronic) Moderate (50-69%) stenosis right extracranial internal carotid. Moderate (50- 69%) stenosis left extracranial internal carotid. U/S 06/2018 Left CEA 2014 Bladder cancer (Chronic) Chronic kidney disease (CKD) (Chronic) Essential (primary) hypertension (Chronic) Orthostatic hypotension (Chronic) HLD (hyperlipidemia) (Chronic) You will use the following diet at home:: Cardiac Discharge Activity: Return to Normal Activity Call your doctor if you observe: Fever of 101 or Higher, Shortness of breath, Dizziness, Fainting spells, Chest pain Allergies/Adverse Reactions: Allergies morphine Allergy (Verified 10/17/20 15:44) HALLUCINATIONS vaccine adjuvant system, [id number] liposomal [From Shingrix (PF)] Adverse Reaction (Verified 10/17/20 15:44) Fever and skin rash varicella-zoster virus glycoprotein E, recombinant [From Shingrix (PF)] Adverse Reaction (Verified 10/17/20 15:44) Fever and skin rash Medications to take at Discharge Gabapentin [Neurontin] 400 mg PO TIDCM 10/14/18 Amitriptyline HCl [Elavil] 100 mg PO QHS 01/30/19 Cilostazol 100 mg PO BID 05/18/19 Clopidogrel Bisulfate [Plavix] 75 mg PO DAILY 05/18/19 Ipratropium/Albuterol Respimat [Combivent Respimat Inhal [place]] 1 puff INHALATION DAILY 07/30/19 Hydrocortisone [Cortef] 10 mg PO BIDCM #60 tab 08/03/19 midodrine 5 mg tablet 2.5 mg PO DAILY PRN PRN tab 04/24/20 Atorvastatin Calcium 20 mg PO QHS 10/17/20 Pantoprazole Sodium [Protonix] 40 mg PO BID 10/17/20 Primary Care Physician: Karan Talbert MD [Primary Care Provider] - Please follow up with your Primary Care Physician in: 1 Week Test Results: Test results from this visit will be discussed in further detail at your follow- up appointment, if applicable. Please Follow Up With: Maximiliano Kunz MD When: As scheduled 12/05/2020 Please Follow Up With: Cristo Mejia, DO - Pulmonary medicine When: Call for follow up- 2 weeks Proposed Discharge Date: 10/21/20
--- NOTE | 2020-10-21 13:14 | PCM.DC.SUM ---
<Pia Wen PAPIER MACHE' MOLDER - Last Filed: 10/21/20 13:24> Discharge Date and Diagnosis - Problem List Patient Problems: Active and Suspected Problems (Last Reviewed 09/01/19 @ 12:[address] Maximiliano Kuzn MD) Chest pain (Acute) Date of Admission: 10/17/20 Date of Discharge: 10/21/20 - Primary Discharge Diagnosis Acute Problems: Active Problems (Last Reviewed 09/01/19 @ 12:[address] Maximiliano Kunz MD) 1. Acute encephalopathy 2. Acute hypoxia, suspect chronic secondary to underlying severe chronic COPD 3. Chest pain-ACS ruled out. 4. History of orthostatic hypotension, adrenal insufficiency 5. Hypertensive urgency 6. Tobacco dependence-current 2 pack/day smoker. 7. PAD 8. History of TIA 9. Hyperlipidemia 10. History of bladder cancer 11. GERD - Secondary Discharge Diagnosis Chronic Problems: Chronic Problems (Last Reviewed 09/01/19 @ 12:[address] Maximiliano Kunz MD) PAD (peripheral artery disease) (Chronic) Nicotine abuse (Chronic) Adrenal insufficiency (Chronic) Nicotine dependence (Chronic) Claudication in peripheral vascular disease (Chronic) Bilateral carotid artery stenosis (Chronic) Moderate (50-69%) stenosis right extracranial internal carotid. Moderate (50-69%) stenosis left extracranial internal carotid. U/S 06/2018 Left CEA 2014 Bladder cancer (Chronic) Chronic kidney disease (CKD) (Chronic) Essential (primary) hypertension (Chronic) Orthostatic hypotension (Chronic) HLD (hyperlipidemia) (Chronic) Hospital Course and Treatment Imaging Results: Diagnostic Data Chest CTA 10/17/20 15:56 IMPRESSION: 1. 3.69 cm abdominal aortic aneurysm 2. Moderate atherosclerotic stenosis at the origin of the bilateral renal arteries. 3. Colonic diverticulosis 4. Moderate atrophy of the kidneys and numerous bilateral kidney stones Electronically Signed: Evert Landin MD at 17:07 EST , Service support , Abdomen CTA 10/17/20 16:00 IMPRESSION: 1. 3.69 cm abdominal aortic aneurysm 2. Moderate atherosclerotic stenosis at the origin of the bilateral renal arteries. 3. Colonic diverticulosis 4. Moderate atrophy of the kidneys and numerous bilateral kidney stones Electronically Signed: Evert Landin MD at 17:07 EST , Service support , Chest X-Ray 10/20/20 09:45 IMPRESSION: Left lower lobe infiltrate with blunting of left costophrenic angle. Mild increased markings at the right lung base. Electronically Signed: Efrain Dominique, at 10:00 EST , Service support , Brain CT 10/20/20 13:54 IMPRESSION: Chronic involutional changes of the brain. Electronically Signed: Efrain Dominique, at 14:34 EST , Service support , Dr. Perez- Cardiology Operations: None Procedures: 2-D Echocardiogram Summary of Care Provided: The patient is a 70 year old M admitted 10/17/2020 due to chest pain. 1. Acute encephalopathy-unclear etiology. Brain CT unremarkable. ABG showed mild hypoxia however patient was off of supplemental oxygen at the time. Urinalysis unremarkable. Chest x-ray with left lower lobe atelectasis. Mental status now at baseline. Possible underlying cognitive impairment. Spoke with who reports patient has a history of intermittent confusion which was suspected secondary to low blood pressure. Recommend follow-up with PCP for further geriatric/cognitive evaluation. Recommended further outpatient physical therapy however patient declined. 2. Acute hypoxic respiratory insufficiency, suspect chronic secondary to underlying severe chronic COPD-CTA with significant emphysematous changes. Covid and respiratory panel negative. CTA and chest x-ray both show left lower lobe atelectasis. Patient will require 2 L nasal cannula continuously at rest and 4 L nasal cannula continuously with ambulation. He is ambulatory in the home. Referred to pulmonary medicine for further outpatient evaluation. 3. Chest pain-ACS ruled out. Cardiology consulted during admission. Troponin negative. Suspect musculoskeletal nature. Patient reports intermittent back pain. Echocardiogram demonstrates an EF of 55%. No further plans for stress/cath at this time. CTA negative. 4. History of orthostatic hypotension, adrenal insufficiency-continue hydrocortisone. Midodrine on hold. 5. Hypertensive urgency-midodrine on hold. Blood pressure currently stable. Recommend avoiding midodrine unless significant hypotension. Blood pressure does fluctuate considerably however currently stable without antihypertensive regimen. 6. Tobacco dependence-current 2 pack/day smoker. Encouraged cessation. Instructed he is not to smoke while using supplemental oxygen. 7. PAD-follows with Dr. Olson. Prior stents. Continue Plavix, statin, Pletal. 8. History of TIA-aspirin, statin. 9. Hyperlipidemia-continue statin. 10. History of bladder cancer-continue outpatient follow-up. 11. GERD-continue PPI. General: Alert, Cooperative, No apparent distress HEENT: Atraumatic, PERRLA, EOMI, Normocephalic Oral: Dry Mucosa Neck: Supple, No JVD, Negative Carotid Bruits Lungs: Clear to auscultation, Diminished Cardiovascular: Regular Rhythm, Tachycardic Abdomen: Bowel Sounds Present, Soft, Non Tender, Non-Distended Extremities: No clubbing, No cyanosis, No edema, Capillary Refill Less than 3 Seconds Skin: No rashes, No breakdown Musculoskeletal: No Tenderness to Palpation of Joints or Extremities Neurological: Cranial nerves II-XII grossly intact, Neuro grossly intact Psych/Mental Status: Appropriate, normal affect Patient seen and examined prior to discharge. Physical assessment as noted above. Patient is stable for discharge with follow up recommendations as noted above. This patient was seen by BRYANT Dahl under the supervision of Dr. Curry. Patient Problems: Active and Suspected Problems (Last Reviewed 09/01/19 @ 12:[address] Maximiliano Kunz MD) Chest pain (Acute) - Physical Exam Vitals/I&O's: Vital Signs Temp Pulse Resp BP Pulse Ox 98.5 F 82 18 130/95 H 87 10/21/20 08:39 10/21/20 08:39 10/21/20 08:39 10/21/20 08:39 10/21/20 12:45 Oxygen Flow Rate (L/min) [ 4 AMBULATION with Oxygen] Oxygen Flow Rate (L/min) [ 0 AMBULATING on Room Air] Oxygen Flow Rate (L/min) [At 0 REST on Room Air] Oxygen Flow Rate (L/min) 2 Oxygen Delivery Method Nasal Cannula Weight: 190 lb 0.615 oz Body Mass Index (BMI) 27.3 Finger Stick Blood Glucose 134 Intake and Output for Last 24 Hours 12/17/20 12/18/20 12/19/20 23:59 23:59 23:59 Intake Total 2618.75 / 2618.75 250 / 250 305 / 305 Output Total 1425 / 1425 350 / 350 Balance 1193.75 / 1193.75 -100 / -100 305 / 305 Microbiology Past 72 Hours 10/20/20 13:35 Interface Orders Respiratory Panel (PCR) - Final 10/20/20 11:45 Mucosa - Nose SARS-CoV-2 Antigen (Rapid) - Final Laboratory Results 10/20/20 14:29: Specimen Type ART, pH 7.43, Bicarbonate Actual 18.4 L, Total CO2 19, Base Excess -6 L, O2 Saturation 91 L, ABG pCO2 28.0 L, ABG pO2 58 L, Atul Test Positive, O2 Delivery Device Room Air 10/20/20 14:35: Troponin I 0.015 10/20/20 15:10: Urine Color Yellow, Urine Clarity Clear, Urine pH 5.0, Ur Specific [place] 1.020, Urine Protein 100 H, Urine Glucose (UA) Normal, Urine Ketones 15 H, Urine Occult Blood 150 H, Urine Nitrite Negative, Urine Bilirubin Negative, Urine Urobilinogen Normal, Ur Leukocyte Esterase 25 H, Urine RBC 10-25 SEEN, Urine WBC 0-5 SEEN, Ur Squamous Epith Cells 0-5 SEEN, Amorphous Sediment 1+ URATE, Urine Bacteria 0 SEEN, Urine Mucus 1+ 10/20/20 17:23: Ammonia < 10.0 L 10/21/20 02:20: MRSA (PCR) Negative 10/21/20 06:40: WBC 13.4 H, RBC 4.63, Hgb 14.3, Hct 44.2, MCV 95.5 H, MCH 30.9, MCHC 32.4, RDW Std Deviation 47.1 H, RDW Coeff of Ruperto 13.3, Plt Count 282, MPV 9.3 10/21/20 06:40: Sodium 134 L, Potassium 3.9, Chloride 106, Carbon Dioxide 23.0, Anion Gap 5, BUN 29 H, Creatinine 1.65 H, Estim Creat Clear Calc 43.73, Est GFR (MDRD) Af Amer 53 L, Est GFR (MDRD) Non-Af 44 L, BUN/Creatinine Ratio 17.6, Glucose 102, Calcium 8.7, Magnesium 2.6 Current Medications Acetaminophen (Acetaminophen 325 Mg Tablet) 650 mg PO Q6H PRN PRN PRN Reason: Pain Score 1-10/Temp > 100.7 F Last Admin: 10/18/20 02:17 Dose: 650 mg Documented by: Albuterol Sulfate (Albuterol 2.5 Mg/3 Ml Vial.Neb.) 2.5 mg INHALATION Q2H PRN PRN PRN Reason: Dyspnea, wheezing Albuterol/Ipratropium (Ipratropium/Albuterol Sulfate 3 Ml Ampul.Neb) 3 ml INHALATION Q6HWA.RT [facility] Last Admin: 10/21/20 07:02 Dose: 3 ml Documented by: Amitriptyline HCl (Amitriptyline 100 Mg Tablet) 100 mg PO QHS [facility] Last Admin: 10/20/20 20:56 Dose: 100 mg Documented by: Atorvastatin Calcium (Atorvastatin Calcium 20 Mg Tablet) 20 mg PO QHS [facility] Last Admin: 10/20/20 20:57 Dose: 20 mg Documented by: Cilostazol (Cilostazol 50 Mg Tablet) 100 mg PO BID [facility] Last Admin: 10/21/20 08:41 Dose: 100 mg Documented by: Clopidogrel Bisulfate (Clopidogrel Bisulfate 75 Mg Tablet) 75 mg PO DAILY [facility] Last Admin: 10/21/20 08:41 Dose: 75 mg Documented by: Cyclobenzaprine HCl (Cyclobenzaprine Hcl 10 Mg Tablet) 10 mg PO TID PRN PRN PRN Reason: MUSCLE SPASM Last Admin: 10/19/20 23:02 Dose: 10 mg Documented by: Enoxaparin Sodium (Enoxaparin 100 Mg/Ml Syringe) 90 mg SC Q12 [facility] Last Admin: 10/21/20 08:42 Dose: 90 mg Documented by: Gabapentin (Gabapentin 400 Mg Capsule) 400 mg PO TIDCM [facility] Last Admin: 10/21/20 12:56 Dose: 400 mg Documented by: Guaifenesin (Guaifenesin 10 Ml Udc (200mg/10ml)) 10 ml PO Q4H PRN PRN PRN Reason: COUGH Hydralazine HCl (Hydralazine 20 Mg/Ml Vial) 10 mg IV Q4H PRN PRN PRN Reason: SBP > 160 Last Admin: 10/19/20 13:25 Dose: 10 mg Documented by: Hydrocortisone (Hydrocortisone 10 Mg Tablet) [facility] Last Admin: 10/21/20 08:41 Dose: 10 mg Documented by: Azithromycin 500 mg/ [facility]xtrose 255 mls [facility] Last Infusion: 10/21/20 02:10 Dose: Infused Documented by: Ceftriaxone Sodium (Rocephin) 1 gm in 50 mls @ 100 mls[facility] Last Infusion: 10/21/20 01:00 Dose: Infused Documented by: Melatonin (Melatonin 3 Mg Tablet) 3 mg PO QHS PRN PRN PRN Reason: INSOMNIA Last Admin: 10/19/20 23:29 Dose: 3 mg Documented by: Nicotine (Nicotine 21 Mg Patch) 21 mg TD DAILY [facility] Last Admin: 10/21/20 08:41 Dose: 21 mg Documented by: Nitroglycerin (Nitroglycerin (Inpatient Use) 0.4 Mg Tab.Subl) 0.4 mg SUBLINGUAL Q5M PRN PRN Reason: CARDIAC/CHEST PAIN Ondansetron HCl (Ondansetron 4 Mg/2 Ml Vial) 4 mg IV Q8H PRN PRN PRN Reason: NAUSEA/VOMITING Oxycodone HCl (Oxycodone 5 Mg Tablet) 5 mg PO Q4H PRN PRN PRN Reason: Pain Score 4-5 Last Admin: 10/21/20 06:18 Dose: 5 mg Documented by: Pantoprazole Sodium (Pantoprazole Sodium 40 Mg Tablet) 40 mg PO BID [facility] Last Admin: 10/21/20 08:41 Dose: 40 mg Documented by: Prochlorperazine Edisylate (Prochlorperazine 10 Mg/2 Ml Vial) 5 mg IV Q4H PRN PRN PRN Reason: Breakthrough Nausea/Vomiting Psyllium Hydrophilic Mucilloid (Psyllium 1 Packet) 1 packet PO DAILY PRN PRN PRN Reason: Constipation Quetiapine Fumarate (Quetiapine 25 Mg Tablet) [facility] Last Admin: 10/21/20 01:56 Dose: Not Given Documented by: Senna/Docusate Sodium (Senna/Docusate Sodium 1 Tablet) 2 tablet PO BID PRN PRN Reason: Constipation Sodium Chloride (0.9% Saline Lock 10 Ml Syringe) 10 - 40 ml IV UD PRN PRN Reason: SALINE FLUSH Last Admin: 10/20/20 21:19 Dose: 20 ml Documented by: Throat Lozenges (Benzocaine/Menthol 1 Lozenge) 1 lozenge MUCOUS MEM Q2H PRN PRN PRN Reason: SORE THROAT Discharge Diet: Low fat/ Low Cholesterol Discharge Activity: Return to Normal Activity Call your doctor if you observe: Fever of 101 or Higher, Shortness of breath, Dizziness, Fainting spells, Chest pain Home Medications: Medications to take at Discharge Gabapentin [Neurontin] 400 mg PO TIDCM 10/14/18 Amitriptyline HCl [Elavil] 100 mg PO QHS 01/30/19 Cilostazol 100 mg PO BID 05/18/19 Clopidogrel Bisulfate [Plavix] 75 mg PO DAILY 05/18/19 Ipratropium/Albuterol Respimat [Combivent Respimat Inhal [place]] 1 puff INHALATION DAILY 07/30/19 Hydrocortisone [Cortef] 10 mg PO BIDCM #60 tab 08/03/19 midodrine 5 mg tablet 2.5 mg PO DAILY PRN PRN tab 04/24/20 Atorvastatin Calcium 20 mg PO QHS 10/17/20 Pantoprazole Sodium [Protonix] 40 mg PO BID 10/17/20 Primary Care Physician: Karan Talbert MD [Primary Care Provider] - Please follow up with your Primary Care Physician in: 1 Week Please Follow Up With: Maximiliano Kunz MD When: As scheduled 12/05/2020 Please Follow Up With: Cristo Mejia DO - Pulmonary medicine When: Call for follow up- 2 weeks Disposition: Home Minutes spent on discharge:: 35 Patient Condition:: Stable Medical Necessity - Tobacco Use Smoking Status: Current every day smoker Tobacco Use: Cigarettes Meaningful Use Info Meaningful Use Diagnoses (Choose all that apply): None applicable <Eric Curry - Last Filed: 10/21/20 15:35> Discharge Date and Diagnosis - Primary Discharge Diagnosis Acute Problems: Active Problems (Last Reviewed 09/01/19 @ 12:[address] Maximiliano Kunz MD) Chest pain (Acute) - Secondary Discharge Diagnosis Chronic Problems: Chronic Problems (Last Reviewed 09/01/19 @ 12:[address] Maximiliano Kunz MD) PAD (peripheral artery disease) (Chronic) Nicotine abuse (Chronic) Adrenal insufficiency (Chronic) Nicotine dependence (Chronic) Claudication in peripheral vascular disease (Chronic) Bilateral carotid artery stenosis (Chronic) Moderate (50-69%) stenosis right extracranial internal carotid. Moderate (50-69%) stenosis left extracranial internal carotid. U/S 06/2018 Left CEA 2014 Bladder cancer (Chronic) Chronic kidney disease (CKD) (Chronic) Essential (primary) hypertension (Chronic) Orthostatic hypotension (Chronic) HLD (hyperlipidemia) (Chronic) Hospital Course and Treatment Summary of Care Provided: This patient was seen in conjunction with PAPIER MACHE' MOLDER, Pia. I have independently interviewed and examined the patient and reviewed pertinent history, examination findings, laboratory and plan of management. I have reviewed the note and agree with the documented findings with the few additional points. In brief, patient is 69-year-old gentleman with history of peripheral arterial disease, bilateral carotid artery disease admitted with chest pain and high blood pressure. Patient was put on nicardipine drip and admitted in ICU on 10/17 and transferred to PCU on 10/18/2020. EKG showed no acute ischemic changes. Serial troponin enzymes negative. CTA chest and abdomen no acute abnormality but 3.69 abdominal aortic aneurysm with moderate atherosclerotic stenosis at the origin of bilateral renal arteries. Moderate atrophy of kidneys with numerous bilateral kidney stones. Blood pressure is controlled. Patient had 2D echo showed EF 55% with moderate concentric LVH. LA mildly enlarged. No significant valvular abnormality. Acute encephalopathy, probably metabolic: ABG 7.4 01/28/58/19 on room air suggestive of mild respiratory alkalosis. Bicarb 23 on BMP. BUN/creatinine elevated 21/1.58. Mild leukocytosis. Chest x-ray shows left lower lobe infiltrate with blunting left CP angle. CT head chronic involutional changes but no acute abnormality. SARS-CoV-2 antigen is negative. Respiratory panel negative. Patient restless to go home. Patient also has history of bladder cancer, chronic adrenal insufficiency and CKD stage III. Patient received IV contrast. Patient received IV fluid. On hydrocortisone for history of chronic adrenal insufficiency. Patient suspected to have chronic hypoxia secondary to severe COPD CTA shows significant emphysema never been on home oxygen. Continue to monitor. Patient has chronic smoking 2 packs/day. Patient pulse ox 87% on room air at rest, 89% on 4 L on ambulation. Patient is ambulatory in home and in the community and requires home oxygen with portability. CTA chest shows platelike lithiasis in left lower lobe along with significant cystic emphysematous changes. No pneumonic consolidation or active pulmonary edema. Discharge medication reconciliation done. Discharge follow-up instructions completed. Discharge process discussed with the patient and all questions were answered to patient's satisfaction. Discharged on oxygen advised to follow-up in pulmonary clinic. Total time spent, exact 35 minutes on discharge meds reconciliation, examination, coordination of care with nurses and ancillary staff, review of imaging and blood test and discussion with the patient on follow-up instructions I have discussed my assessment with PAPIER MACHE' MOLDERPia and orders have been reviewed. [] Objective: Patient very anxious and restless to go home. He is alert awake oriented x3. No mostly will sign AMA form on discharge.No fever last 24 hours. Low-grade temperature related Fahrenheit yesterday on 10/20. Physical exam General: Awake, awake and oriented x3. HEENT: Atraumatic, PERRLA, EOMI, Normocephalic Oral: No Gingival or Mucosal Lesions/ Ulcerations Neck: Supple, No JVD, Negative Carotid Bruits Lungs: Air entry diminished in bilateral lung bases. Mild bilateral expiratory rhonchi. Patient is hypoxia. Cardiovascular: Regular rate, Regular Rhythm, Normal S1, Normal S2, Abdomen: Bowel Sounds Present, Soft, Non Tender, Non-Distended : No renal angle tenderness. No suprapubic tenderness. Extremities: No ankle edema, capillary Refill Less than 3 Seconds Skin: No rashes, No breakdown Musculoskeletal: No Tenderness to Palpation of Joints or Extremities Neurological: Cranial nerves II-XII grossly intact, Deep Tendon Reflexes 2+/4 and Symmetrical, Neuro grossly intact Psych/Mental Status: Restless and anxious. - Physical Exam Vitals/I&O's: Vital Signs Temp Pulse Resp BP Pulse Ox 98.5 F 82 18 130/95 H 87 10/21/20 08:39 10/21/20 08:39 10/21/20 08:39 10/21/20 08:39 10/21/20 12:45 Oxygen Flow Rate (L/min) [ 4 AMBULATION with Oxygen] Oxygen Flow Rate (L/min) [ 0 AMBULATING on Room Air] Oxygen Flow Rate (L/min) [At 0 REST on Room Air] Oxygen Flow Rate (L/min) 2 Oxygen Delivery Method Nasal Cannula Weight: 190 lb 0.615 oz Body Mass Index (BMI) 27.3 Finger Stick Blood Glucose 134 Intake and Output for Last 24 Hours 10/19/20 10/20/20 10/21/20 23:59 23:59 23:59 Intake Total 2618.75 / 2618.75 250 / 250 785 / 785 Output Total 1425 / 1425 350 / 350 Balance 1193.75 / 1193.75 -100 / -100 785 / 785 Microbiology Past 72 Hours 10/20/20 13:35 Interface Orders Respiratory Panel (PCR) - Final 10/20/20 11:45 Mucosa - Nose SARS-CoV-2 Antigen (Rapid) - Final Laboratory Results 10/20/20 15:10: Urine Color Yellow, Urine Clarity Clear, Urine pH 5.0, Ur Specific [place] 1.020, Urine Protein 100 H, Urine Glucose (UA) Normal, Urine Ketones 15 H, Urine Occult Blood 150 H, Urine Nitrite Negative, Urine Bilirubin Negative, Urine Urobilinogen Normal, Ur Leukocyte Esterase 25 H, Urine RBC 10-25 SEEN, Urine WBC 0-5 SEEN, Ur Squamous Epith Cells 0-5 SEEN, Amorphous Sediment 1+ URATE, Urine Bacteria 0 SEEN, Urine Mucus 1+ 10/20/20 17:23: Ammonia < 10.0 L 10/21/20 02:20: MRSA (PCR) Negative 10/21/20 06:40: WBC 13.4 H, RBC 4.63, Hgb 14.3, Hct 44.2, MCV 95.5 H, MCH 30.9, MCHC 32.4, RDW Std Deviation 47.1 H, RDW Coeff of Ruperto 13.3, Plt Count 282, MPV 9.3 10/21/20 06:40: Sodium 134 L, Potassium 3.9, Chloride 106, Carbon Dioxide 23.0, Anion Gap 5, BUN 29 H, Creatinine 1.65 H, Estim Creat Clear Calc 43.73, Est GFR (MDRD) Af Amer 53 L, Est GFR (MDRD) Non-Af 44 L, BUN/Creatinine Ratio 17.6, Glucose 102, Calcium 8.7, Magnesium 2.6 Inpatient E&M: [id number] Disch Hosp
--- NOTE | 2020-10-23 15:05 | CASEMGMT ---
DAVEY AMARAL Discharge Follow-up Phone Call: CLAUDIA: Luz Maria Strata: 3 Call Date: 10/23/20 Discharge Date: 10/21/20 Time of Call: [id number] Duration: 1 min Admitting Diagnosis: HTN urgency, suspected NSTEMI RN MUNIR attempted to complete follow-up phone call after recent hospitalization. Clarice answered phone, DAVEY AMARAL introduced self. states patient is currently at [facility] having heart surgery and hung up the phone. Patient was discharged home with home oxygen.
== END 2020-10-21 14:54 | disposition home or self-care (01) | DRG 304 ==
LOC: ED 18:32 → ICU 18:45 → PCU 10-18 10:33
PROVIDERS: Hospitalist; Nurse Practitioner Family; Physician Assistant; Admitting Provider Family Medicine; Emergency Provider Student in an Organized Health Care Education/Training Program; PCP Family Medicine; Visit Provider Internal Medicine
DX: I16.1 Hypertensive emergency (principal); G93.41 Metabolic encephalopathy; J18.9 Pneumonia, unspecified organism; E27.40 Unspecified adrenocortical insufficiency; J98.11 Atelectasis; J43.9 Emphysema, unspecified; E78.00 Pure hypercholesterolemia, unspecified; E11.51 Type 2 diabetes mellitus with diabetic peripheral angiopathy without gangrene; I95.1 Orthostatic hypotension; I71.4 Abdominal aortic aneurysm, without rupture; I65.23 Occlusion and stenosis of bilateral carotid arteries; I49.3 Ventricular premature depolarization; I12.9 Hypertensive chronic kidney disease with stage 1 through stage 4 chronic kidney disease, or unspecified chronic kidney disease; E11.22 Type 2 diabetes mellitus with diabetic chronic kidney disease; N18.30 Chronic kidney disease, stage 3 unspecified; D63.1 Anemia in chronic kidney disease; N20.0 Calculus of kidney; K21.9 Gastro-esophageal reflux disease without esophagitis; G47.33 Obstructive sleep apnea (adult) (pediatric); F17.210 Nicotine dependence, cigarettes, uncomplicated; R07.89 Other chest pain; R09.02 Hypoxemia; Z98.61 Coronary angioplasty status; Z85.51 Personal history of malignant neoplasm of bladder; Z79.82 Long term (current) use of aspirin; Z79.02 Long term (current) use of antithrombotics/antiplatelets; Z79.899 Other long term (current) drug therapy; Z86.73 Personal history of transient ischemic attack (TIA), and cerebral infarction without residual deficits
CPT/HCPCS: 36415; 36600; 70450; 71045; 71275; 74175; 80048; 80053; 80061; 80076; 81001; 82140; 82803; 82962; 83690; 83735; 84484; 85025; 85027; 85610; 85730; 87426; 87633; 87641; 93005; 93306; 94640; 97162; 97165; 97535; 97802; 99251; 99285; 99406; J7030; J7050; Q9957; Q9967; A4216; C8929; G0463; J2405

== ENCOUNTER 2020-10-22 10:59 | Emergency (ER) | payer MEDICARE, OTHER, SELFPAY ==
[2020-10-17 20:09] VITALS: BMI 27.3
[2020-10-22] VITALS (7 sets, daily range): BP systolic 92–150; BP diastolic 67–114; PULSE 51–97; RESP 20–24; TEMP 35.5–36.4; O2SAT 95–98; BMI 28.0
--- NOTE | 2020-10-22 11:15 | CT_ITS ---
We are attempting to reach an attending provider to discuss findings. An addendum with communication details will be sent when the communication is complete. STUDY: CT ABDOMEN AND PELVIS WITHOUT CONTRAST REASON FOR EXAM: Male, 70 years old. Right flank pain since last night. Discharge from hospital 10/21/2020 and mid and at that time for chest pain. RADIATION DOSAGE (If Supplied By Facility): DLP = ( 397.89 ) mGycm TECHNIQUE: Transaxial images were obtained from the dome of the diaphragm to the symphysis pubis without oral contrast, and without intravenous contrast. Sagittal and coronal images were reconstructed. Individualized dose optimization techniques were used for this CT. COMPARISON: CTA chest 10/17/2020, x-ray chest 10/20/2020, CT chest 07/30/2018 FINDINGS: Inferior chest: Centrilobular emphysema, patchy and partially confluent bibasilar airspace opacities concerning for pneumonia, minimal loculated effusion at the left lung base. Small right middle lobe infiltrate as well, subsegmental. Body wall soft tissues: No acute process. Osseous structures: No acute process. Mild lumbar scoliosis with low lumbar degenerative disc disease notable at L5-S1 contributing to moderate foraminal narrowing. Hepatobiliary: Unremarkable. Pancreas: Moderate atrophy. Spleen: Normal. Adrenal glands: Normal. Urogenital: There are bilateral renal cysts, grossly simple cystic in appearance, concordant with simple cyst BOSNIAK category 1 seen on prior contrast-enhanced CT chest, no suspicious features, requiring no follow-up. Normal collecting systems, ureters, urinary bladder. Mild prostatic enlargement. Lymphadenopathy: None. Stomach: Normal. Small bowel and mesentery: Unremarkable. Appendix: Not visualized. Correlate for any history of appendectomy. No acute inflammatory features in the region of the cecum. Large bowel: Mild sigmoid diverticulosis without diverticulitis. Normal rectum. Vasculature: The pattern of aortic wall calcifications is consistent with the presence of aortic dissection. Between the study of 07/30/2018, and 10/17/2020 there was a change in the morphology of the aortic arch, in particular the distal arch and proximal to mid descending thoracic aorta, consistent with a dissection beginning at the level of the takeoff of the left subclavian artery. A tiny flap extending into the subclavian artery without significant stenosis. On the 10 17 2020 study, the apparent dissection flap extended to the mid descending thoracic aorta. The mid to distal descending thoracic aorta at that time measured up to 2.72 cm. On today''s study the same segment of the aorta measures 4.3 cm in diameter, and calcified plaque previously seen along the wall of the distal thoracic aorta is now seen in the middle of the lumen giving the impression of a true lumen and a false lumen. This process extends to the level of the renal arteries. It appears that the celiac trunk and SMA takeoff from the true lumen. The renal arteries also appear to takeoff from the true lumen. Within the abdomen, there is a mildly aneurysmal infrarenal abdominal aorta, 3.1 cm. There is prominent aortoiliac atherosclerosis with probable mild stenosis in the common iliac arteries. There is a stent within the left common iliac artery. There is mild to moderate plaque of the proximal femoral arteries. There is mild cardiomegaly with prominent coronary atherosclerosis multivessel. CT/Abdomen/Pelvis without Cont IMPRESSION: 1. Wyatt type B thoracic aortic dissection, progressing distally to the level of the renal arteries compared to the study of 10/17/2020 at which time the dissection appeared to extend only to the mid descending thoracic aorta. The dissection originates at the level of the left subclavian artery. 2. No acute intra-abdominal/intrapelvic process is otherwise evident. 3. Mild aneurysmal ectasia of the infrarenal abdominal aorta 3.1 cm. 4. Benign bilateral renal cysts requiring no follow-up. 5. Patchy bibasilar pulmonary infiltrates, most suspicious for pneumonia, small loculated effusion at the left lung base. 6. Mild cardiomegaly, prominent coronary atherosclerosis multivessel. Electronically Signed: Mathew Ulloa MD at 13:20 EST Tel , Service support ,
--- NOTE | 2020-10-22 11:17 | ED.DCSUM_ITS ---
History of Present Illness Chief Complaint: Flank Pain Narrative: This patient is a 70-year-old male who presents with right flank pain. He has a poor informant. Patient was recently admitted with chest pain. He states they were not sure what was going on. On record review it appears he was admitted with chest pain and hypertensive emergency. He was on a nicardipine drip for some time. He ultimately signed out AGAINST MEDICAL ADVICE yesterday. He states that after leaving the hospital he developed severe right flank pain. This feels similar to prior kidney stones. 5 days ago he had a CT angiogram of the chest abdomen and pelvis. No dissection. An abdominal aortic aneurysm was noted with some chronic mural thrombus. Renal calculi were noted at that time. Past Medical History - Allergies and Home Meds Allergies/Adverse Reactions: Allergies morphine Allergy (Verified 10/22/20 11:01) HALLUCINATIONS vaccine adjuvant system, AS01B liposomal [From Shingrix (PF)] Adverse Reaction (Verified 10/22/20 11:01) Fever and skin rash varicella-zoster virus glycoprotein E, recombinant [From Shingrix (PF)] Adverse Reaction (Verified 10/22/20 11:01) Fever and skin rash Primary Care Physician: Karan Talbert MD [Primary Care Provider] - Past Medical History: - - Hypertension, hyperlipidemia Surgical History: noncontributory, - - Hand surgery for trigger finger. Surgery on her wrist at x2. 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 Len was placed in left femur. Carotid endarterectomy. Bladder surgery for cancer. Smoking Status: Current every day smoker - Family History Maternal Family History: Family History (Last Reviewed 10/17/20 @ 17:52 by JARON Vega) Father Lung cancer Brother Throat cancer Brother Stomach cancer Mother Heart problem Family History: Reports: Heart Disease Paternal Family History: Family History (Last Reviewed 10/17/20 @ 17:52 by JARON Vega) Father Lung cancer Brother Throat cancer Brother Stomach cancer Mother Heart problem Family History: Reports: Cancer - lung Sibling Family History: Family History (Last Reviewed 10/17/20 @ 17:52 by JARON Vega) Father Lung cancer Brother Throat cancer Brother Stomach cancer Mother Heart problem Family History: Reports: Cancer - throat and stomach Review of Systems All systems negative except as indicated General: Denies: Fever Eyes: Denies: Visual changes - bilaterally Cardiovascular: Denies: Chest pain Respiratory: Denies: Dyspnea Gastrointestinal: Reports: Abdominal pain Genitourinary: Denies: Dysuria, Frequency Musculoskeletal: Reports: Back pain. Denies: Myalgias Skin: Denies: Rash Neurological: Denies: Headache Psych: Denies: Depression Allergy: Denies: Uticaria Physical Exam Vital Signs/Narrative: Vital Signs Temp Pulse Resp BP Pulse Ox 10/22/20 11:00 97.6 F L 51 L 24 H 136/70 H 95 Inital Vital Signs reviewed: Yes General: Obese Head: Normocephalic Eyes: EOMI ENT: Moist mucous membranes Neck: Supple Cardiovascular: Regular rhythm, Bradycardia Respiratory: No distress, CTA bilaterally Abdomen: Soft, Tender - Patient has mild diffuse nonfocal abdominal tenderness without guarding without rebound Skin: Normal color Neurological: Alert Psychological: Normal affect Diagnostic/Tx/Re-eval Impressions Abdomen/Pelvis CT 10/22/20 11:15 IMPRESSION: 1. Wayan type B thoracic aortic dissection, progressing distally to the level of the renal arteries compared to the study of 10/17/2020 at which time the dissection appeared to extend only to the mid descending thoracic aorta. The dissection originates at the level of the left subclavian artery. 2. No acute intra-abdominal/intrapelvic process is otherwise evident. 3. Mild aneurysmal ectasia of the infrarenal abdominal aorta 3.1 cm. 4. Benign bilateral renal cysts requiring no follow-up. 5. Patchy bibasilar pulmonary infiltrates, most suspicious for pneumonia, small loculated effusion at the left lung base. 6. Mild cardiomegaly, prominent coronary atherosclerosis multivessel. Electronically Signed: Mathew Ulloa MD at 13:20 EST Tel , Service support , ADDENDUM: 10/22/20 1341 ADDENDUM: 10/22/20 1343 10/22/20 11:15 Abdomen/Pelvis without Cont [CT] Stat 10/22/20 13:31 CT ANGIO ABD&PEL W/O&W/DYE [CT] Stat Laboratory Results 10/22/20 10/22/20 10/22/20 11:50 11:50 11:50 WBC 15.9 H RBC 4.64 Hgb 14.9 Hct 43.8 MCV 94.4 H MCH 32.1 H MCHC 34.0 RDW Std Deviation 45.9 H RDW Coeff of Ruperto 13.2 Plt Count 236 MPV 9.3 Immature Gran % (Auto) 0.700 Neut % (Auto) 78.4 H Lymph % (Auto) 7.4 L Letcher % (Auto) 12.9 H Eos % (Auto) 0.3 Baso % (Auto) 0.3 Absolute Neuts (auto) 12.5 H Absolute Lymphs (auto) 1.18 Nucleated RBC % 0 Diff Path Review May foll Reactive Lymphocytes RARE Platelet Estimate ADEQUATE RBC Morphology NORM C+C Sodium 137 Potassium 4.0 Chloride 108 H Carbon Dioxide 22.0 Anion Gap 7 BUN 37 H Creatinine 1.76 H Estim Creat Clear Calc 38.50 Est GFR (MDRD) Af Amer 49 L Est GFR (MDRD) Non-Af 41 L BUN/Creatinine Ratio 21.0 H Glucose 101 Lactic Acid 1.5 Calcium 9.1 Total Bilirubin 0.60 AST 94 H ALT 137 H Alkaline Phosphatase 91 Total Protein 6.8 Albumin 3.0 L Globulin 3.8 Albumin/Globulin Ratio 0.8 L - Medical Decision Making Reports were reviewed from prior hospitalization. Renal calculi were noted. Given his complaint of flank pain I was concerned for possible ureteral calculi. A CT of the abdomen and pelvis was obtained. I was called by radiology. This does show an aortic dissection. Imaging from the CTAs on the were reviewed by radiology and they do believe there was an aortic dissection at that time originating at the aortic arch and the descending portion does appear to have extended. This extends to the renal arteries but radiology does believe that the SMA and renal artery are patent released from the noncontrast imaging although did recommend repeat CT angiogram of the chest abdomen pelvis to further characterize this aortic dissection. Additionally the patient does appear to have some bilateral lower infiltrates. He had a negative Covid test 2 days ago. He does have a leukocytosis of 15.9 and was given IV Zosyn and vancomycin. He is given given fentanyl for pain. Patient is confused. He stated he has to go home because the blue birds are coming tomorrow. His reports that he was seeing bugs on the wall. Initially patient wanted to leave AGAINST MEDICAL ADVICE but did not believe he has capacity to make decisions at this time. He developed some agitation and was given further fentanyl and Ativan. I initially spoke to the [facility] transfer line. Given the origin of the dissection were unable to manage this patient. I spoke to [facility] and patient was accepted for transfer to their ICU. 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
[2020-10-22 12:04] LABS: Absolute Lymphocyte Count 1.18 X10^3/uL (0.83-4.51); Absolute Neutrophil Count 12.5 X10^3/uL (2.0-7.7); Basophil# 0.04 X10^3/uL; Basophil% 0.3 % (0-1); Eosinophil# 0.05 X10^3/uL; Eosinophils% 0.3 % (0-5); Hematocrit 43.8 % (40-54); Hemoglobin 14.9 g/dL (13.0-16.5); Lymphocyte # 1.18 X10^3/ul (4.0); Lymphocyte % 7.4 % (19-41); Mean Corpuscular Hgb 32.1 pg (27.0-32.0); Mean Corpuscular Volume 94.4 fL (80-94); Mean Platelet Vol. 9.3 fl (6.2-12.0); Monocyte# 2.05 X10^3/uL; Monocyte% 12.9 % (0-10); NRBC Flagged by Analyzer 0 % (0-5); Neutrophil % 78.4 % (47-70); POSITIVE DIFFERENTIAL YES; Platelet Count 236 K/mm3 (150-450); RBC Distribution Width CV 13.2 % (11.6-14.6); RBC Distribution Width SD 45.9 fl (35.1-43.9); Red Blood Count 4.64 M/mm3 (4.6-6.2); White Blood Count 15.9 K/mm3 (4.4-11.0)
[2020-10-22 12:05] LABS: Differential Indicated SCAN CRITERIA MET
[2020-10-22] MEDS: Ondansetron 4 MG/2 ML Vial IV (12:13)
[2020-10-22] MEDS: fentaNYL 100 MCG/2 ML Ampul 25 MCG IV ×2 (12:13→14:50)
[2020-10-22] MEDS: 0.9% Normal Saline 1,000 ML 1000 ML IV (12:14)
[2020-10-22 12:18] LABS: ALB/GLOB Ratio 0.8 RATIO (0.9-2.4); AST(SGOT) 94 U/L (15-37); Alanine Aminotransfer ALT/SGPT 137 U/L (16-61); Alkaline Phosphatase 91 U/L (45-117); Anion Gap 7 (5-15); BUN 37 mg/dL (7-18); Calcium,Total 9.1 mg/dL (8.5-10.1); Chloride 108 mmol/L (98-107); Creatinine, Serum 1.76 mg/dL (0.70-1.30); EST Glomerular Filtration Rate 41 mL/min (>60); Est Glom Filt Rate - Afr Amer 49 mL/min (>60); Globulin 3.8 g/dL (2.2-4.2); Glucose 101 mg/dL (74-106); Protein, Total 6.8 g/dL (6.4-8.2); Sodium Level 137 mmol/L (136-145)
[2020-10-22 12:50] LABS: Platelet Estimate ADEQUATE (ADEQ); Reactive Lymphocyte RARE; Red Cell Morphology NORM C+C NORMAL (NORM C&C)
--- NOTE | 2020-10-22 13:31 | CT_ITS ---
STUDY: CT ANGIOGRAM CHEST, ABDOMEN AND PELVIS WITH IV CONTRAST REASON FOR EXAM: Male, 70 years old. Evidence of aortic dissection on noncontrast CT abdomen and pelvis. RADIATION DOSAGE (If Supplied By Facility): CTDIvol = ( 16.16 ) mGy, DLP = ( 1119.92 ) mGycm. Individualized dose optimization techniques were used for this CT.? TECHNIQUE: IV contrast ISOVUE-370 100 mL. Thin slice transaxial CT angiogram was performed of the chest, abdomen and pelvis, with sagittal and coronal 2-D MPR, MIP, and curved planar reformatted images saved to the PACS archive. Up to date CT equipment and radiation dosage reduction techniques were employed. Dosage data preserved on PACS/permanent medical record. COMPARISON: CT abdomen pelvis noncontrast today, CTA chest 10/17/2020, CTA abdomen 10/17/2020, CT chest 07/30/2018. FINDINGS: Supraclavicular: Unremarkable. Mediastinal contents: No acute lymphadenopathy. Several small lymph nodes. Normal esophagus. Thoracic body wall soft tissues: No acute process. Lungs: Prominent features of centrilobular emphysema. Multifocal patchy airspace opacities are present at the lung bases bilaterally, right lower lobe, right middle lobe, left lower lobe, suspicious for the possibility of acute pneumonia although potentially atelectatic. Small loculated left effusion. Osseous structures: Prominent kyphosis, mild thoracic spondylosis, prominent low cervical spondylosis, no acute process. Heart: Mild cardiac MADELEY, no pericardial effusion. There is ectasia in particular of the left ventricle compared to the other chambers. There is no appendage thrombus. There is severe coronary calcification proximal to mid LAD, proximal circumflex, proximal RCA. Pulmonary arteries: Mildly ectatic, with no evidence of central pulmonary embolus. The study is not optimized for assessment of peripheral pulmonary emboli. Abdominopelvic body wall soft tissues: No acute process. Abdominopelvic osseous structures: Lumbar degenerative disc disease is relatively mild but somewhat more prominent at L5-S1, contributing to mild foraminal narrowing. Mild scoliosis. Hepatobiliary: No acute process. Pancreas: Mild atrophy. Spleen: Normal. Adrenal glands: Normal. Urogenital: Bilateral renal cysts are simple cystic in appearance, benign BOSNIAK category 1 requiring no follow-up. Non-obstructing calyceal catheter present in each kidney, the largest measuring about 6 mm. There is an infarct of the small portion of the left renal inferior pole due to obstruction of the small accessory left renal artery secondary to the abdominal aortic dissection. Otherwise the kidneys enhance symmetrically and are supplied by the true lumen from the dominant renal arteries. Normal collecting systems, ureters, urinary bladder. Mild prostatomegaly. Lymphadenopathy: None. Stomach: Normal. Small bowel and mesentery: No acute process. Large bowel: Distal large bowel diverticulosis without diverticulitis. Normal rectum. Ascites or free air: None. AORTA: Minimal calcification aortic valve, trileaflet morphology. Nondilated ascending aorta and proximal to mid arch. Beginning in the distal large just after the takeoff of the left common carotid artery, there is a Whittaker type B aortic dissection. A small dissection flap extends into the proximal left subclavian artery contributing to mild stenosis. There is also plaque in the proximal left subclavian contributing to mild stenosis. Beginning in the proximal descending thoracic aorta both the true lumen and false lumen enhance nearly symmetrically. Beginning in the distal descending thoracic aorta the false lumen enhances very poorly. To the level of the renal arteries through the hiatus, the true lumen is compressed substantially into a slender crescent by the nonopacified false lumen. The dissection terminates at the level of the renal arteries. There is mild aneurysmal ectasia of the infrarenal abdominal aorta measuring about 3.1 cm with mural thrombus. There is no extension of the dissection flap distal to the renal arteries. Right common iliac artery stent, left common iliac artery stent, no apparent iliac artery or proximal femoral artery stenosis. The true lumen gives rise to the celiac artery and superior mesenteric artery, also to the right renal artery and dominant 2 left renal arteries. A very small left renal artery supplying the distal inferior pole of the left kidney appears to be supplied by the false lumen, accounting for the small area of left renal lower pole infarction. Segment traversing the diaphragmatic hiatus of the false lumen compressing the true lumen is probably captured in diastole accounting for the slender crescentic true lumen. CT/CT ANGIO ABD&PEL W/O&W/DYE IMPRESSION: 1. Patchy bibasilar pulmonary infiltrates could be atelectasis but there is somewhat exaggerated. Correlate clinically for the possibility of pneumonia. 2. Small left pleural effusion. 3. Prominent coronary atherosclerosis with myocardium EGLI. 4. No acute intra-abdominal/intrapelvic process is evident aside from the dissection. 5. A small accessory left renal artery to the lower pole has been occluded secondary to the dissection and there is a small portion of the left renal lower pole that is infarcted. 6. Wyatt type B thoracic and abdominal aortic dissection extending from the mid arch, to the level of the renal arteries. All major branch vessels emerge from the true lumen and enhance appropriately. Detailed description within the findings of the report. Electronically Signed: Mathew Ulloa MD at 14:53 EST Tel , Service support ,
--- NOTE | 2020-10-22 13:59 | ED.RN ---
UPON ENTERING ROOM.PT HAS REMOVED IV AND IS CHANGING INTO [facility] [facility]. PT STATES I AM LEAVING, STATES I HAVE TO DRIVE MY TO THE HOUSE AND THE [employer] ARE COMING.CALLED PT . SHE COMES INTO DEPARTMENT. STATES PT HAS BEEN CONFUSED HAS BEEN TALKING TO HER ABOUT [employer] COMING AND HAS TALKED ABOUT SEEING BUGS CLIMBING ON THE WALL. DR OLIVIER IN TO TALK WITH . WOULD LIKE PT TO BE TRANSFERRED. PT REFUSING BUT BASED ON CONFUSION CONCERN IF PT IS CAPABLE OF MAKING DECISIONS
--- NOTE | 2020-10-22 14:04 | NURSING ---
CALLED [facility] ABOUT TRANSFER
--- NOTE | 2020-10-22 14:20 | NURSING ---
CALLED [facility] FOR TRANSFER
--- NOTE | 2020-10-22 14:25 | NURSING ---
DR OLIVIER FOR [facility]
[2020-10-22 14:34] LABS: Lactic Acid 1.5 mmol/L (0.4-1.9)
[2020-10-22 14:43] LABS: Prothrombin Time (Protime)PT. 12.8 SECONDS (11.7-14.9)
--- NOTE | 2020-10-22 14:43 | NURSING ---
ETA IS 30 MIN
--- NOTE | 2020-10-22 14:46 | NURSING ---
[facility] BED J31 BED 18 NURSE TO NURSE [phone]
[2020-10-22] MEDS: LORazepam 2 MG/ML Syringe 1 MG IV (14:47)
[2020-10-23 15:20] LABS: Pathologist Review Reviewed
== END 2020-10-22 15:25 | disposition short-term general hospital (02) ==
PROVIDERS: Emergency Provider Emergency Medicine; PCP Family Medicine
DX: I71.01 Dissection of thoracic aorta (principal); I71.4 Abdominal aortic aneurysm, without rupture; I25.10 Atherosclerotic heart disease of native coronary artery without angina pectoris; I10 Essential (primary) hypertension; E78.5 Hyperlipidemia, unspecified; F17.200 Nicotine dependence, unspecified, uncomplicated; Z87.442 Personal history of urinary calculi
CPT/HCPCS: 74174; 74176; 80053; 83605; 85025; 85610; 87040; 96361; 96365; 96367; 96375; 96376; 99285; J7030; J7050; Q9967; A4216; J2405